=== PATIENT | male | born 1955 | race Caucasian/White ===

== ENCOUNTER 2016-11-28 17:51 | Inpatient (IN) | payer MEDICARE, MEDICAID ==
[2016-11-28] MEDS ORDERED: cefTRIAXone(*) 1 GM in NS 0.9% 50 ML* 50 ML IVPB ONE (17:59)
[2016-11-28] MEDS ORDERED: NS 0.9% 1000 ML* 2,000 ML IV ONE (17:59)
[2016-11-28 18:12] LABS: Hematocrit 28 % (42-52); Hemoglobin 8.5 g/dl (14.0-18.0); Mean Corpuscular HGB Conc 31 g/dl (31-36); Mean Corpuscular Hemoglobin 24 pg (27-31); Mean Corpuscular Volume 78 fL (80-94); Mean Platelet Volume 8 um3 (7.4-10.4); Red Cell Distribution Width 15 % (10.5-15); White Blood Count 10.8 10^3/ul (3.5-10.8)
[2016-11-28 18:27] LABS: BUN/Creatinine Ratio 14.5 (8-20); Calcium 8.8 mg/dL (8.6-10.3); EGFR African American 45.4 (>60); EGFR Non-African American 35.3 (>60); Potassium 4.1 mmol/L (3.5-5.0); Total Bilirubin 1.7 mg/dL (0.2-1.0)
[2016-11-28 18:30] LABS: Troponin I 0.04 ng/mL (<0.04)
--- NOTE | 2016-11-28 18:37 | RAD ---
INDICATION: Sepsis COMPARISON: Chest x-ray November 11, 2015 TECHNIQUE: Single AP portable view of the chest was obtained. FINDINGS: Image quality is compromised due to the relative inferiority of a portable chest x-ray. The heart and mediastinum exhibit normal size and contour. Similar the previous chest x-ray the pulmonary vasculature is prominent and indistinct. There are pleural-based densities at the lateral aspect of the left lung base and medial aspect of the right lung base. Overall aeration is improved when compared to the previous chest x-ray. Visualized bones are normal for the patient's age. IMPRESSION: Chest x-ray findings are most suggestive of mild pulmonary edema with left greater than right lung base hypoventilatory change. Overall the aeration of the lungs appears slightly improved when compared to the November 11, 2015 chest x-ray.
[2016-11-28 19:12] LABS: C Reactive Protein 167.28 mg/L (< 5.00)
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
--- NOTE | 2016-11-28 20:52 | ED ---
randa Perea Timothy, scribed for Dev George MD on 11/28/16 at 1811 . Sepsis HPI - HPI Summary HPI Summary: Efra Thapa is a 61 yo male presenting to [facility] with generalized weakness since this morning, as well as cough. He denies fever, trouble urinating, or abdominal pain and nausea. His MHx includes systolic CHF, HTN, COPD, pulmonary edema, DM, depression, anemia, and confirmed MRSA. - History of Current Complaint Time Seen by Provider: 11/28/16 17:55 Stated Complaint: GENERAL WEAKNESS Hx Obtained From: Patient Onset/Duration: Started Hours Ago, Still Present Timing: Constant Onset Severity: Moderate Current Severity: Moderate Pain Intensity: 0 Pain Scale Used: 0-10 Numeric Associated Signs & Symptoms: Cough - Additional Pertinent History Primary Care Physician: [id number] - Allergy/Home Medications Allergies/Adverse Reactions: Allergies Allergy/AdvReac Type Severity Reaction Status Date / Time Penicillins Allergy Intermediate Rash Verified 11/28/16 18:34 PMH/Surg Hx/FS Hx/Imm Hx Endocrine/Hematology History: Reports: Hx Diabetes, Hx Anemia - TAKING IRON Cardiovascular History: Reports: Hx Congestive Heart Failure - SYSTOLIC CHF, Hx Hypertension - TAKING MEDICATION Respiratory History: Reports: Hx Chronic Obstructive Pulmonary Disease (COPD), Hx Pulmonary Edema History: Denies: Hx Renal Disease Musculoskeletal History: Reports: Other Musculoskeletal History - osteomyalgia bilateral foot Sensory History: Denies: Hx Contacts or Glasses, Hx Hearing Aid Opthamlomology History: Denies: Hx Contacts or Glasses Psychiatric History: Reports: Hx Depression - Surgical History Hx Anesthesia Reactions: No - Immunization History Date of Tetanus Vaccine: Unk Date of Influenza Vaccine: None - Family History Known Family History: Positive: Cardiac Disease, Hypertension, Diabetes - Social History Alcohol Use: None Substance Use Type: Reports: None Hx Tobacco Use: No Smoking Status (MU): Never Smoked Tobacco Have You Smoked in the Last Year: No Review of Systems Constitutional: Negative Negative: Fever Eyes: Negative ENT: Negative Cardiovascular: Negative Positive: Cough Gastrointestinal: Negative Genitourinary: Negative Musculoskeletal: Negative Skin: Negative Positive: Weakness Psychological: Normal All Other Systems Reviewed And Are Negative: Yes Physical Exam Triage Information Reviewed: Yes Vital Signs On Initial Exam: Initial Vital Signs Temp 99.9 F 11/28/16 18:00 Pulse 106 11/28/16 18:00 Resp 20 11/28/16 18:00 BP 87/49 11/28/16 18:00 Pulse Ox 88 11/28/16 18:00 Vital Signs Reviewed: Yes Appearance: Positive: No Pain Distress, Ill-Appearing Skin: Positive: Warm, Dry, Pale Head/Face: Positive: Normal Head/Face Inspection Eyes: Positive: Normal ENT: Positive: Other - mucous membranes dry Neck: Positive: Supple, Nontender Respiratory/Lung Sounds: Positive: Clear to Auscultation, Breath Sounds Present Cardiovascular: Positive: RRR Abdomen Description: Positive: Nontender, Soft, Hernia @ - nontender ventral hernia Bowel Sounds: Positive: Present Musculoskeletal: Positive: Normal Neurological: Positive: Normal Psychiatric: Positive: Normal Diagnostics - Vital Signs Vital Signs Temp Pulse Resp BP Pulse Ox 11/28/16 19:20 100.1 F 93 26 155/62 96 11/28/16 19:18 96 155/62 96 11/28/16 19:00 95 94 11/28/16 18:44 101 18 85 11/28/16 18:42 153/79 11/28/16 18:40 90 11/28/16 18:00 99.9 F 106 20 87/49 88 - Laboratory Lab Results: Lab Results 11/28/16 11/28/16 11/28/16 Range/Units 17:55 17:55 17:55 WBC 10.8 (3.5-10.8) 10^3/ul RBC 3.60 L (4.0-5.4) 10^6/ul Hgb 8.5 L (14.0-18.0) g/dl Hct 28 L (42-52) % MCV 78 L (80-94) fL MCH 24 L (27-31) pg MCHC 31 (31-36) g/dl RDW 15 (10.5-15) % Plt Count 302 (150-450) 10^3/ul MPV 8 (7.4-10.4) um3 Neut % (Auto) 80.0 (38-83) % Lymph % (Auto) 14.6 L (25-47) % [place] % (Auto) 4.1 (1-9) % Eos % (Auto) 1.0 (0-6) % Baso % (Auto) 0.3 (0-2) % Absolute Neuts (auto) 8.6 H (1.5-7.7) 10^3/ul Absolute Lymphs (auto) 1.6 (1.0-4.8) 10^3/ul Absolute Monos (auto) 0.4 (0-0.8) 10^3/ul Absolute Eos (auto) 0.1 (0-0.6) 10^3/ul Absolute Basos (auto) 0 (0-0.2) 10^3/ul Absolute Nucleated RBC 0.01 10^3/ul Nucleated RBC % 0.1 INR (Anticoag Therapy) 1.05 (0.89-1.11) APTT 26.9 (26.0-36.3) seconds Sodium 133 (133-145) mmol/L Potassium 4.1 (3.5-5.0) mmol/L Chloride 93 L (101-111) mmol/L Carbon Dioxide 37 H (22-32) mmol/L Anion Gap 3 (2-11) mmol/L BUN 28 H (6-24) mg/dL Creatinine 1.93 H (0.67-1.17) mg/dL Est GFR ( Amer) 45.4 (>60) Est GFR (Non-Af Amer) 35.3 (>60) BUN/Creatinine Ratio 14.5 (8-20) Glucose 272 H (70-100) mg/dL Lactic Acid (0.5-2.0) mmol/L Calcium 8.8 (8.6-10.3) mg/dL Total Bilirubin 1.70 H (0.2-1.0) mg/dL AST 64 H (13-39) U/L ALT 18 (7-52) U/L Alkaline Phosphatase 72 (34-104) U/L Troponin I 0.04 H* (<0.04) ng/mL C-Reactive Protein 167.28 H (< 5.00) mg/L Total Protein 8.0 (6.4-8.9) g/dL Albumin 3.0 L (3.2-5.2) g/dL Globulin 5.0 H (2-4) g/dL Albumin/Globulin Ratio 0.6 L (1-3) 11/28/16 Range/Units 17:55 WBC (3.5-10.8) 10^3/ul RBC (4.0-5.4) 10^6/ul Hgb (14.0-18.0) g/dl Hct (42-52) % MCV (80-94) fL MCH (27-31) pg MCHC (31-36) g/dl RDW (10.5-15) % Plt Count (150-450) 10^3/ul MPV (7.4-10.4) um3 Neut % (Auto) (38-83) % Lymph % (Auto) (25-47) % [place] % (Auto) (1-9) % Eos % (Auto) (0-6) % Baso % (Auto) (0-2) % Absolute Neuts (auto) (1.5-7.7) 10^3/ul Absolute Lymphs (auto) (1.0-4.8) 10^3/ul Absolute Monos (auto) (0-0.8) 10^3/ul Absolute Eos (auto) (0-0.6) 10^3/ul Absolute Basos (auto) (0-0.2) 10^3/ul Absolute Nucleated RBC 10^3/ul Nucleated RBC % INR (Anticoag Therapy) (0.89-1.11) APTT (26.0-36.3) seconds Sodium (133-145) mmol/L Potassium (3.5-5.0) mmol/L Chloride (101-111) mmol/L Carbon Dioxide (22-32) mmol/L Anion Gap (2-11) mmol/L BUN (6-24) mg/dL Creatinine (0.67-1.17) mg/dL Est GFR ( Amer) (>60) Est GFR (Non-Af Amer) (>60) BUN/Creatinine Ratio (8-20) Glucose (70-100) mg/dL Lactic Acid 1.7 (0.5-2.0) mmol/L Calcium (8.6-10.3) mg/dL Total Bilirubin (0.2-1.0) mg/dL AST (13-39) U/L ALT (7-52) U/L Alkaline Phosphatase (34-104) U/L Troponin I (<0.04) ng/mL C-Reactive Protein (< 5.00) mg/L Total Protein (6.4-8.9) g/dL Albumin (3.2-5.2) g/dL Globulin (2-4) g/dL Albumin/Globulin Ratio (1-3) Result Diagrams: 11/28/16 17:55 11/28/16 17:55 Lab Statement: Any lab studies that have been ordered have been reviewed, and results considered in the medical decision making process. - Radiology CXR Xray Interpretation: No Acute Changes - IMPRESSION: Chest x-ray findings are most suggestive of mild pulmonary edema with left greater than right lung base hypoventilatory change. Overall the aeration of the lungs appears slightly improved when compared to the November 11, 2015 chest x-ray. Radiology Interpretation Completed By: Radiologist - EKG 1803 Cardiac Rate: NL - 86 BPM EKG Interpretation: NSR @ 86 BPM. Course/Dx - Course Assessment/Plan: Efra Thapa is a 61 yo male presenting to [facility] with weakness and cough, at risk for sepsis. After normal EKG, negative CXR, and review of his lab work, as well as discussion with Dr. Vaughn, he will be admitted to [facility]. I'm not sure of the wource of his sepsis but he appears to be quite ill and I am treating him aggressively. - Differential Dx/Clinical Impression Provider Diagnosis: Sepsis - Provider Notifications Discuss Care Of Patient With: 1951 - Dr. Vaughn (hospitalist) - discussed Pt condition, agrees to admit. Discharge - Discharge Plan Condition: Stable Disposition: ADMITTED TO [facility] Referrals: Ismael Yoo MD [Primary Care Provider] - The documentation as recorded by the randa pollack Timothy accurately reflects the service I personally performed and the decisions made by me, Dev George MD.
[2016-11-28] MEDS ORDERED: Albuterol 2.5 MG/3 ML NEB.SOL* (0.083%) INH PRN (21:42)
[2016-11-28] MEDS ORDERED: Ondansetron INJ* 2 MG/ML VIAL IV PRN (21:42)
[2016-11-28] MEDS ORDERED: Acetaminophen TAB* 325 MG PO PRN (21:42)
[2016-11-28] MEDS ORDERED: CMCS: Melatonin (NF) 3 MG TAB PO PRN (21:42)
[2016-11-28] MEDS ORDERED: traMADol TAB* 50 MG PO PRN (21:42)
[2016-11-28 21:57] LABS: Immature Retic Fraction 0.57
[2016-11-28 21:58] LABS: Corrected Retic Count 1.4 % (0.5-1.5)
[2016-11-28] MEDS ORDERED: methylPREDNISolone SOD SUCC* 125 MG 2 ML VIAL IV ONE (22:00)
[2016-11-28 22:26] LABS: Ferritin 166.4 ng/mL (24-336)
[2016-11-28 22:29] LABS: Folate 8.51 ng/mL (>3.99)
[2016-11-28] MEDS: Azithromycin IV(*) 500 MG in NS 0.9% 250 ML* 250 ML IVPB SCH (23:34)
[2016-11-28] MEDS: NS 0.9% 1000 ML* 1,000 ML IV SCH (23:35)
[2016-11-29] MEDS: Albuterol 2.5 MG/3 ML NEB.SOL* (0.083%) INH SCH ×2 (01:24→08:07)
[2016-11-29 05:45] LABS: Hematocrit 27 % (42-52); Hemoglobin 8.3 g/dl (14.0-18.0); Mean Corpuscular HGB Conc 31 g/dl (31-36); Mean Corpuscular Hemoglobin 24 pg (27-31); Mean Corpuscular Volume 79 fL (80-94); Mean Platelet Volume 8 um3 (7.4-10.4); Red Blood Count 3.43 10^6/ul (4.0-5.4); Red Cell Distribution Width 15 % (10.5-15); White Blood Count 10.5 10^3/ul (3.5-10.8)
[2016-11-29] MEDS ORDERED: methylPREDNISolone SOD SUCC* 40 MG/ML VIAL IV SCH (06:00)
[2016-11-29 06:01] LABS: BUN/Creatinine Ratio 15.7 (8-20); Calcium 8.2 mg/dL (8.6-10.3); EGFR African American 44.1 (>60); EGFR Non-African American 34.3 (>60); Potassium 5.2 mmol/L (3.5-5.0)
[2016-11-29] MEDS: Heparin VIAL(*) 5000 UNITS/ML VIAL (FIVE THOUSAND) SUBCUT SCH ×3 (06:02→20:49)
[2016-11-29] MEDS: Omeprazole CAP* 20 MG PO SCH (06:02)
[2016-11-29 07:04] LABS: Troponin I 0.03 ng/mL (<0.04)
[2016-11-29] MEDS ORDERED: Insulin LISPRO* 1 UNITS UNIT SUBCUT SCH (07:30)
[2016-11-29] MEDS: NS 0.9% 1000 ML* 1,000 ML IV SCH (08:00)
[2016-11-29] MEDS: Mometasone/Formoter 200/5 MDI INH SCH ×2 (08:07→20:58)
[2016-11-29] MEDS: Tiotropium CAP.INH* CAP.INH/18 MCG INH SCH (08:07)
[2016-11-29] MEDS ORDERED: Spiriva Inhaler DEVICE* 1 EACH DEVICE INH ONE (09:00)
[2016-11-29] MEDS: Insulin LISPRO* 1 UNITS UNIT SUBCUT SCH ×6 (09:58→20:47)
[2016-11-29] MEDS: guaiFENesin ER TAB 600 MG PO SCH ×2 (09:59→20:55)
--- NOTE | 2016-11-29 11:23 | PN ---
Subjective Date of Service: 11/29/16 Interval History: Patient seen this morning. Says he feels better today, increase in energy. Mild , non-productive cough. Family History: Unchanged from Admission Social History: Unchanged from Admission Past Medical History: Unchanged from Admission Objective Active Medications: Acetaminophen (Tylenol Tab*) 650 mg PO Q6H PRN Albuterol (Ventolin 2.5 Mg/3 Ml Neb.Sarah*) 2.5 mg INH Q2H PRN Guaifenesin (Mucinex*) 1,200 mg PO BID MAVIS Heparin Sodium (Porcine) (Heparin Vial(*)) 5,000 units SUBCUT Q8HR MAVIS Sodium Chloride (Ns 0.9% 1000 Ml*) 1,000 mls @ 125 mls/hr IV PER RATE MAVIS Ceftriaxone Sodium 1,000 mg/ (Sodium Chloride) 50 mls @ 200 mls/hr IVPB Q24H MAVIS Azithromycin 500 mg/ Sodium (Chloride) 250 mls @ 250 mls/hr IVPB Q24H MAVIS Insulin Glargine (Lantus(*)) 30 units SUBCUT 2100 MAVIS Insulin Human Lispro (Humalog*) 0 units SUBCUT AC MAVIS Insulin Human Lispro (Humalog*) 0 units SUBCUT ACHS MAVIS Melatonin (Melatonin (Nf)) 3 mg PO BEDTIME PRN; Protocol Methylprednisolone Sodium Succinate (Solu-Medrol*) 40 mg IV Q8H MAVIS Mometasone Furoate/Formoterol Fumar (Dulera 200/5 Mdi*) 2 puff INH BID MAVIS Omeprazole (Prilosec Cap*) 20 mg PO DAILY@0600 MAVIS Ondansetron HCl (Zofran Inj*) 4 mg IV Q6H PRN Tiotropium [place] (Spiriva Cap.Inh*) 1 cap INH DAILY MAVIS Tramadol HCl (Ultram*) 50 mg PO Q6H PRN Vital Signs 11/28/16 11/29/16 11/29/16 23:30 00:27 01:23 Temperature 98.1 F 98.7 F Pulse Rate 99 81 78 Respiratory 20 20 14 Rate Blood Pressure 148/70 125/56 (mmHg) O2 Sat by Pulse 90 98 97 Oximetry 11/29/16 11/29/16 11/29/16 03:38 07:26 08:08 Temperature 98.7 F 98.1 F Pulse Rate 84 89 75 Respiratory 20 20 16 Rate Blood Pressure 158/75 162/82 (mmHg) O2 Sat by Pulse 97 98 98 Oximetry Oxygen Devices in Use Now: Nasal Cannula - 3.5L Appearance: Middle-aged, obese, M, laying in bed in NAD Eyes: No Scleral Icterus Ears/Nose/Mouth/Throat: Mucous Membranes Moist Neck: NL Appearance and Movements; NL JVP Respiratory: Symmetrical Chest Expansion and Respiratory Effort, Clear to Auscultation Cardiovascular: NL Sounds; No Murmurs; No JVD, RRR Abdominal: NL Sounds; No Tenderness; No Distention Lymphatic: No Cervical Adenopathy Extremities: No Edema Skin: - - Chronic LE skin changes Neurological: Alert and Oriented x 3 Result Diagrams: 11/29/16 04:57 11/29/16 04:57 Microbiology and Other Data: Microbiology 11/29/16 03:10 Gram Stain - Final Sputum 11/28/16 23:25 Nasal Screen MRSA (PCR)(CÉSAR) - Final Nasal Mrsa Negative 11/28/16 22:20 Influenza Types A,B Antigen (CÉSAR) - Final Nasopharyngeal Specimen received for Influenza A/B Molecular testing Assess/Plan/Problems-Billing Assessment: COPD exacerbation in a 61 yo M with hx of HTN, COPD on 2L, DM, LUANA - Patient Problems (1) COPD exacerbation Current Visit: Yes Comment: Switch to PO prednisone. Continue nebs, dulera, spiriva. Decrease O2 as able. Check procalcitonin, not convinced there is bacterial infection. (2) Elevated troponin Current Visit: Yes Comment: Troponin trending down, likley mild demand (3) Diabetes Current Visit: Yes Comment: BGs uncontrolled due to steroids. Change to PO prednisone. Increase HISS. Continue Lantus. (4) ELIZA (acute kidney injury) Current Visit: Yes Comment: Continue IVF for now. BMP daily. Hold nephrotoxic meds (5) HTN (hypertension) Current Visit: Yes Comment: Holding home Lisinopril. Restart metoprolol 50 bid (6) Anemia Current Visit: Yes Comment: Iron studies c/w ACD (7) DVT prophylaxis Current Visit: Yes Comment: HSQ
[2016-11-29] MEDS: Metoprolol Tartrate TAB* 50 mg PO SCH ×2 (11:53→20:55)
[2016-11-29] MEDS ORDERED: cefTRIAXone VIAL(*) 1,000 MG in NS 0.9% 50 ML* 50 ML IVPB SCH (20:00)
[2016-11-29] MEDS ORDERED: Insulin GLARGINE(*) 1 UNITS UNIT SUBCUT SCH (21:00)
[2016-11-29] MEDS: Azithromycin IV(*) 500 MG in NS 0.9% 250 ML* 250 ML IVPB SCH (23:16)
[2016-11-30] MEDS: Omeprazole CAP* 20 MG PO SCH (06:06)
[2016-11-30] MEDS: Heparin VIAL(*) 5000 UNITS/ML VIAL (FIVE THOUSAND) SUBCUT SCH ×2 (06:06→13:04)
[2016-11-30 06:52] LABS: BUN/Creatinine Ratio 22.4 (8-20); EGFR African American 45.7 (>60); EGFR Non-African American 35.5 (>60); Potassium 5.7 mmol/L (3.5-5.0)
[2016-11-30] MEDS ORDERED: predniSONE TAB* 20 MG PO SCH (08:30)
[2016-11-30] MEDS ORDERED: Sodium Polystyrene ORAL.SOL* 15 GM/60 ML BTL PO ONE (08:33)
[2016-11-30] MEDS: Insulin LISPRO* 1 UNITS UNIT SUBCUT SCH ×4 (09:35→13:05)
[2016-11-30] MEDS: guaiFENesin ER TAB 600 MG PO SCH (09:37)
[2016-11-30] MEDS: Metoprolol Tartrate TAB* 50 mg PO SCH (09:40)
[2016-11-30] MEDS: Mometasone/Formoter 200/5 MDI INH SCH (10:11)
[2016-11-30] MEDS: Tiotropium CAP.INH* CAP.INH/18 MCG INH SCH (10:11)
--- NOTE | 2016-11-30 15:11 | RAD ---
Indication: Acute kidney insufficiency. Comparison: None. Technique: Ultrasound kidneys and urinary bladder. Report: 14.1 x 6.8 x 5.4 cm RIGHT kidney. 13.4 x 5.4 x 5.3 cm LEFT kidney. Normal range renal cortical echogenicity. 1.8 x 1.5 x 1.5 cm and 2.1 x 1.9 x 1.4 cm simple cortical cyst at the lower pole of the LEFT kidney. No suspicious focal renal lesions, conspicuous stones, or hydronephrosis. 626 mL estimated prevoid urinary bladder volume based on 15.6 x 7.1 x 10.9 cm measurements. 2.1 mm bladder wall. No focal bladder lesions evident. Bilateral ureteral jets documented. Significant post void residual volume in the urinary bladder estimated at 267 mL. Only limited visualization of the prostate which measures up to 4.5 x 1.7 x 4.6 cm for an estimated volume of 19 mL. IMPRESSION: 1. Negative for obstructive uropathy. 2. Negative for gross sonographic stigmata of medical renal disease. 3. Distended urinary bladder with significant post void residual volume estimated at 267 mL.
[2016-11-30 15:54] LABS: BUN/Creatinine Ratio 23.8 (8-20); EGFR African American 46.6 (>60); EGFR Non-African American 36.2 (>60); Potassium 4.7 mmol/L (3.5-5.0)
--- NOTE | 2016-11-30 15:58 | DCNOTE ---
Patient seen this morning. Says breathing is at baseline. No complaints. On exam, RRR, s1 and s2 present, no m/g/r, abd obese, soft, NTND, lungs CTA B/L Will discharge patient home to complete steroid course and continue inhalers. No need for ABx. Renal function impaired but stable, renal US unremarkable for any underlying etiology aside from some increased PVR. Discharge home on low K diet, f/u with PCP.
[2016-11-30 16:13] VITALS: BP 131/56
--- NOTE | 2016-12-01 06:46 | DS ---
DISCHARGE SUMMARY: DATE OF ADMISSION: 11/28/16 DATE OF DISCHARGE: 11/30/16 PRIMARY CARE PHYSICIAN: Dr. Yoo. PRINCIPAL DISCHARGE DIAGNOSES: 1. Chronic obstructive pulmonary disease exacerbation. 2. Acute kidney injury on chronic kidney disease. SECONDARY DIAGNOSES: 1. Obstructive sleep apnea, on CPAP. 2. Type 2 diabetes. 3. Hypertension. 4. Hyperkalemia. DISCHARGE MEDICATION REGIMEN: 1. Albuterol 1 puff inhaled every 4 hours as needed for shortness of breath or wheezing. 2. Symbicort 1 puff inhaled 2 times daily. 3. Spiriva 1 capsule inhaled daily. 4. Prednisone 40 mg by mouth daily. 5. Aspirin 81 mg by mouth daily. 6. Lasix 40 mg by mouth daily. 7. Levemir 30 units subcutaneous at bedtime. 8. Lisinopril 10 mg by mouth nightly. 9. Metoprolol tartrate 50 mg by mouth 2 times daily. 10. Glipizide 10 mg by mouth daily. 11. Flomax 0.4 mg by mouth at bedtime. STUDIES DONE DURING HOSPITALIZATION: 1. Chest x-ray, impression: Chest x-ray findings more suggestive of pulmonary edema of left greater than right, lung base hypoventilatory change. Overall, the aeration of the lungs appears slightly improved when compared to 11/11/15 chest x- ray. 2. Renal ultrasound and bladder, impression: Negative for obstructive uropathy. Negative for gross sonographic stigmata of medical renal disease. Distended urinary bladder with postvoid residual of 267 mL. HISTORY OF PRESENT ILLNESS AND HOSPITAL SUMMARY: Please see the full history and physical by Dr. Unruly Vaughn for full details. Briefly, Ms. Thapa is a 61- year-old morbidly obese man with a medical history as above who presented to the hospital with some shortness of breath and hypoxia. He states that when he was at home, he noticed on his O2 sat, he would be dropping into the 70s and 80s. He had poor aeration on initial exam and was treated for COPD exacerbation. He was initially given IV steroids, nebulizers, and IV antibiotics; however, antibiotics were stopped as there was no clear evidence of infection. The patient's renal function was noted to be slightly higher than baseline. He is usually around 1.3 or 1.4 and he was 1.9 on admission. This was stable throughout the hospitalization. The patient was making good urine. As noted above, the renal ultrasound showed some urinary retention after he voided. He will be started on Flomax for possible BPH. He should follow up with his PCP further regarding this. His breathing improved. He was weaned back to his home oxygen level. He will be discharged home on a short course of steroids and follow up with his PCP as an outpatient. TIME SPENT: Total time spent on this discharge 35 minutes. This is the summary of the hospitalization. Please see the medical record for further details. CC: Dr. Yoo* [id number]/CPS #: [id number]
== END 2016-11-30 17:50 | disposition home or self-care (01) | DRG 191 ==
LOC: ED 17:51 → MEDTELE 22:09 → OBSVTOIN 11-29 11:26 → MED 11-29 14:23
PROVIDERS: ADMIT Hospitalist; ATTEND Hospitalist
DX: J44.1 Chronic obstructive pulmonary disease with (acute) exacerbation (principal); N17.9 Acute kidney failure, unspecified; R65.10 Systemic inflammatory response syndrome (SIRS) of non-infectious origin without acute organ dysfunction; I13.0 Hypertensive heart and chronic kidney disease with heart failure and stage 1 through stage 4 chronic kidney disease, or unspecified chronic kidney disease; I50.22 Chronic systolic (congestive) heart failure; E11.22 Type 2 diabetes mellitus with diabetic chronic kidney disease; Z68.41 Body mass index [BMI] 40.0-44.9, adult; E87.5 Hyperkalemia; F32.9 Major depressive disorder, single episode, unspecified; R09.02 Hypoxemia; G47.33 Obstructive sleep apnea (adult) (pediatric); D64.9 Anemia, unspecified; R79.89 Other specified abnormal findings of blood chemistry; E11.65 Type 2 diabetes mellitus with hyperglycemia; T38.0X5A Adverse effect of glucocorticoids and synthetic analogues, initial encounter; N18.9 Chronic kidney disease, unspecified; Z79.52 Long term (current) use of systemic steroids; Z79.82 Long term (current) use of aspirin; Z79.84 Long term (current) use of oral hypoglycemic drugs; Z86.14 Personal history of Methicillin resistant Staphylococcus aureus infection; Z82.49 Family history of ischemic heart disease and other diseases of the circulatory system; Z83.3 Family history of diabetes mellitus; Z88.0 Allergy status to penicillin; Z99.81 Dependence on supplemental oxygen; E66.01 Morbid (severe) obesity due to excess calories; N40.1 Benign prostatic hyperplasia with lower urinary tract symptoms; R33.8 Other retention of urine
CPT/HCPCS: 36415; 71010; 76770; 80048; 80053; 82272; 82607; 82728; 82746; 82947; 83540; 83550; 83605; 83615; 83630; 83880; 84134; 84145; 84484; 85025; 85045; 85610; 85730; 86140; 87040; 87045; 87046; 87205; 87493; 87502; 87641; 87899; 93005; 94760; 99283; A9270-GY; J0456; J0696; J1644; J2920; J2930; J7512

== ENCOUNTER → 2017-01-31 19:36 | Emergency (ER) | payer MEDICARE, MEDICAID ==
[~2017-01-31 19:36] MED LIST: Insulin REGULAR(*) 1 UNITS UNIT IV PUSH ONE; Iodixanol* (CONTRAST) 320 MG/ML 100 ML SDV IV ONE; Morphine INJ* 4 MG/ML 1 ML SYRINGE IV ONE; NS 0.9% 1000 ML* 1,000 ML IV ONE; NS 0.9% 1000 ML* 1,000 ML IV SCH; Ondansetron INJ* 2 MG/ML VIAL IV ONE
[2017-01-31 20:44] LABS: Hematocrit 36 % (42-52); Mean Corpuscular HGB Conc 30 g/dl (31-36); Mean Corpuscular Hemoglobin 23 pg (27-31); Mean Corpuscular Volume 74 fL (80-94); Mean Platelet Volume 8 um3 (7.4-10.4); Red Blood Count 4.89 10^6/ul (4.0-5.4); Red Cell Distribution Width 17 % (10.5-15); White Blood Count 10.7 10^3/ul (3.5-10.8)
--- NOTE | 2017-01-31 20:47 | RAD ---
INDICATION: Abdominal pain. COMPARISON: Comparison is made with a prior chest x-ray study from November 28, 2016. TECHNIQUE: A portable view of the chest was obtained. FINDINGS: Cardiac and mediastinal contours appear to be within normal limits. The lungs are underinflated. There are linear densities at both lung bases most consistent with subsegmental atelectasis. No pleural effusion is seen. IMPRESSION: EXPIRATORY EXAM, NO EVIDENCE FOR ACUTE FINDING.
[2017-01-31 20:49] LABS: Add Diff/Slide Review? Slide Review Added; Comments Flag Yes
[2017-01-31 21:05] LABS: Albumin 3.8 g/dL (3.2-5.2); BUN/Creatinine Ratio 14.4 (8-20); Calcium 9.1 mg/dL (8.6-10.3); EGFR African American 53.7 (>60); EGFR Non-African American 41.8 (>60); Globulin 4.4 g/dL (2-4); Potassium 4.3 mmol/L (3.5-5.0); Total Bilirubin 1.2 mg/dL (0.2-1.0); Total Protein 8.2 g/dL (6.4-8.9)
[2017-01-31 21:06] LABS: Troponin I 0.01 ng/mL (<0.04)
--- NOTE | 2017-01-31 22:15 | RAD ---
INDICATION: Abdominal pain. COMPARISON: Comparison is made with a prior renal and bladder ultrasound from November 30, 2016. TECHNIQUE: A CT scan of the abdomen and pelvis was performed with intravenous and oral contrast following intravenous injection of 129 ml of Visipaque 320 nonionic contrast. Contiguous axial sections were obtained from the lung bases through the symphysis pubis. Images were reconstructed in the coronal and sagittal planes. FINDINGS: There is mild dependent bilateral lower lobe subsegmental atelectasis. No pleural effusion is present. The liver is mildly enlarged without significant focal abnormality. The gallbladder is distended. No calcified gallstones are seen. There is mild intra and extra hepatic ductal distention. The common bile duct measures 1.3 cm in diameter. The pancreas is within normal limits. No pancreatic ductal distention or calcifications are present. The kidneys and adrenal glands are normal in size. No hydronephrosis is seen. There are several small left renal cysts measuring up to 2.3 cm in size. The aorta is normal in caliber and demonstrates homogeneous contrast opacification. There is a retroaortic left renal vein. No significant enlarged retroperitoneal lymph nodes are seen. There are mildly prominent bilateral inguinal lymph nodes measuring up to 1.2 cm in transverse dimension. The stomach, small and large bowel appear nondistended. The appendix is within normal limits. There is no evidence for diverticulitis or colitis. There are periumbilical and left inguinal hernias containing fat. No free intraperitoneal air or fluid is seen. There is a chronic relatively severe compression fracture of the L3 vertebral body. This is seen on a prior MRI of the lumbar spine study from April 18, 2005 and appears unchanged. No other focal osseous abnormalities are seen. IMPRESSION: 1. INTRA AND EXTRAHEPATIC DUCTAL DISTENTION. RECOMMEND A RIGHT UPPER QUADRANT ULTRASOUND FOR FURTHER EVALUATION. 2. CHRONIC COMPRESSION FRACTURE OF THE L3 VERTEBRAL BODY, UNCHANGED. 3. PERIUMBILICAL AND LEFT INGUINAL HERNIAS CONTAINING FAT.
--- NOTE | 2017-02-01 00:32 | ED ---
Jeremi Perea Alok, scribed for Chas Toney on 01/31/17 at 2025 . Abdominal Pain/Male - HPI Summary HPI Summary: 61 y/o male presents to the ED BIBA for abd pain for the last few hours. Pt states that the abd pain is localized to the RLQ, radiating to the back, and is constant, registering at a 4 out of 10 in severity. Pt also notes groin hernia swelling same as baseline. Pt denies N/V/D, CP, SOB, constipation or fever. Pt denies h/o abd surgery. Pt denies h/o kidney stones or OH. PMHx includes COPD for which he uses home O2 and DM for which he recently ran out of his glipizide , with sugar of 366 taken by EMS in route to ED. Pt is allergic to Penicillin. Pt last ate at lunch time. - History of Current Complaint Chief Complaint: EDAbdPain Stated Complaint: ABD PAIN Time Seen by Provider: 01/31/17 19:51 Hx Obtained From: Patient Onset/Duration: Lasting Hours, Still Present Timing: Constant Severity Initially: Moderate Severity Currently: Moderate Pain Intensity: 5 Pain Scale Used: 0-10 Numeric Location: Discrete At: RLQ Radiates: Yes Radiates to: Back Associated Signs And Symptoms: Positive: Back Pain. Negative: Fever, Chest Pain , Constipation, Nausea, Vomiting, Diarrhea, Other - SOB - Allergies/Home Medications Allergies/Adverse Reactions: Allergies Allergy/AdvReac Type Severity Reaction Status Date / Time Penicillins Allergy Intermediate Rash Verified 11/28/16 18:34 PMH/Surg Hx/FS Hx/Imm Hx Endocrine/Hematology History: Reports: Hx Diabetes, Hx Anemia - TAKING IRON Cardiovascular History: Reports: Hx Congestive Heart Failure - SYSTOLIC CHF, Hx Hypertension - TAKING MEDICATION Respiratory History: Reports: Hx Chronic Obstructive Pulmonary Disease (COPD), Hx Pulmonary Edema History: Denies: Hx Renal Disease Musculoskeletal History: Reports: Other Musculoskeletal History - osteomyalgia bilateral foot Sensory History: Denies: Hx Contacts or Glasses, Hx Hearing Aid Opthamlomology History: Denies: Hx Contacts or Glasses Psychiatric History: Reports: Hx Depression - Surgical History Hx Anesthesia Reactions: No - Immunization History Date of Tetanus Vaccine: Unk Date of Influenza Vaccine: None Infectious Disease History: No Infectious Disease History: Denies: Traveled Outside the [place] in Last 30 Days - Family History Known Family History: Positive: Cardiac Disease, Hypertension, Diabetes - Social History Alcohol Use: None Substance Use Type: Reports: None Hx Tobacco Use: No Smoking Status (MU): Never Smoked Tobacco Have You Smoked in the Last Year: No Review of Systems Negative: Fever Negative: Chest Pain Negative: Shortness Of Breath Positive: Abdominal Pain - RLQ. Negative: Vomiting, Diarrhea, Nausea, Other - constipation Positive: Edema - groin hernia swelling same as baseline, Other - back pain All Other Systems Reviewed And Are Negative: Yes Physical Exam Triage Information Reviewed: Yes Vital Signs On Initial Exam: Initial Vitals Temp Pulse Resp BP Pulse Ox 98.3 F 61 18 147/65 97 01/31/17 19:36 01/31/17 19:36 01/31/17 19:36 01/31/17 19:36 01/31/17 19:36 Vital Signs Reviewed: Yes Appearance: Positive: Well-Appearing, No Pain Distress Skin: Positive: Warm, Skin Color Reflects Adequate Perfusion, Dry Head/Face: Positive: Normal Head/Face Inspection Eyes: Positive: EOMI, RYAN ENT: Positive: Other - Dry oral mucosa Neck: Positive: Supple, Nontender Respiratory/Lung Sounds: Positive: Clear to Auscultation, Breath Sounds Present Cardiovascular: Positive: RRR, Pulses are Symmetrical in both Upper and Lower Extremities Abdomen Description: Positive: Soft, Other: - RLQ tenderness Bowel Sounds: Positive: Present Musculoskeletal: Positive: Normal, Strength/ROM Intact Neurological: Positive: Normal, Sensory/Motor Intact, Alert, Oriented to Person Place, Time - Doni Coma Scale Coma Scale Total: 15 Diagnostics - Vital Signs Vital Signs Temp Pulse Resp BP Pulse Ox 01/31/17 20:00 64 142/59 97 01/31/17 19:48 66 96 01/31/17 19:47 146/66 01/31/17 19:36 98.3 F 61 18 147/65 97 - Laboratory Result Diagrams: 01/31/17 20:32 01/31/17 20:32 Lab Statement: Any lab studies that have been ordered have been reviewed, and results considered in the medical decision making process. - Radiology CXR Xray Interpretation: Positive (See Comments) - IMPRESSION: EXPIRATORY EXAM, NO EVIDENCE FOR ACUTE FINDING. Radiology Interpretation Completed By: Radiologist - CT abd/pel CT CT Interpretation: Positive (See Comments) - IMPRESSION: 1. INTRA AND EXTRAHEPATIC DUCTAL DISTENTION. RECOMMEND A RIGHT UPPER QUADRANT ULTRASOUND FOR FURTHER EVALUATION. 2. CHRONIC COMPRESSION FRACTURE OF THE L3 VERTEBRAL BODY, UNCHANGED. 3. PERIUMBILICAL AND LEFT INGUINAL HERNIAS CONTAINING FAT. CT Interpretation Completed By: Radiologist - EKG 2103 Cardiac Rate: NL - 63 bpm EKG Rhythm: Sinus Rhythm ST Segment: Non-Specific - ST changes EKG Interpretation: Q-waves in inferior leads - Additional Comments Diagnostic Additional Comments: Abd US - Minimal hepatomegaly. Coarse liver echotexture, possibly steatosis. Exam limited by bowel gas and body habitus. Cholelithiasis without acute cholecystitis. Top normal gallbladder wall thickness, 3mm. Unremarkable right kidney and visualized aorta. Bowel gas obscures pancreas. No biliary dilatation. Abdominal Pain Fem Course/Dx - Course Course Of Treatment: Pt came with abd pain. Did Lab, CT, XRAY, and US. No cholelithiasis. Pt states he feels fine and will be discharged home with protoxin and recommendation to FU with PCP in 3 days. - Diagnoses Provider Diagnoses: Abdominal pain Discharge - Discharge Plan Condition: Stable Disposition: HOME Prescriptions: Pantoprazole TAB (NF) [Protonix TAB (NF)] 40 mg PO DAILY #30 tab Patient Education Materials: Abdominal Pain (ED) Referrals: Ismael Yoo MD [Primary Care Provider] - 3 Days Additional Instructions: Please follow up with your primary care provider in the next three days. The documentation as recorded by the Jeremi pollack Alok accurately reflects the service I personally performed and the decisions made by me, Chas Toney.
[2017-02-01 00:55] VITALS: BP 151/83
--- NOTE | 2017-02-01 07:55 | RAD ---
INDICATION: Right upper quadrant pain. COMPARISON: Comparison is made with a prior CT of the abdomen and pelvis of the same date. TECHNIQUE: Multiple real-time images of the right upper quadrant were obtained. FINDINGS: There are multiple small gallstones. No gallbladder wall thickening or pericholecystic fluid is seen. No sonographic Cline sign was present. There is extrahepatic ductal distention. The common bile duct measured 1.4 cm in diameter. The liver is normal in size without significant focal abnormality. The pancreas is obscured by overlying bowel gas. The right kidney is normal in size without evidence for hydronephrosis. The results of this exam were called to Dr. Lazo. IMPRESSION: 1. CHOLELITHIASIS, NO EVIDENCE FOR ACUTE CHOLECYSTITIS. 2. EXTRAHEPATIC DUCTAL DISTENTION. CONSIDER AN MRCP STUDY TO ASSESS FOR CHOLEDOCHOLITHIASIS.
--- NOTE | 2017-02-01 09:30 | ED ---
Progress - Progress Note Progress Note: Received radiology discrepancy from staff radiologist this morning regarding dilated CBD 1.4 cm. I discussed this with the PCP, Dr. Yoo, he agrees to call the patient this morning and order followup MRCP as needed. Course/Dx - Course Course Of Treatment: Pt came with abd pain. Did Lab, CT, XRAY, and US. No cholelithiasis. Pt states he feels fine and will be discharged home with protoxin and recommendation to FU with PCP in 3 days. - Diagnoses Provider Diagnoses: Abdominal pain
== END | disposition home or self-care (01) ==
LOC: ED 19:36
DX: R10.9 Unspecified abdominal pain (principal); K80.20 Calculus of gallbladder without cholecystitis without obstruction; E11.9 Type 2 diabetes mellitus without complications; D64.9 Anemia, unspecified; I11.0 Hypertensive heart disease with heart failure; I50.20 Unspecified systolic (congestive) heart failure; J44.9 Chronic obstructive pulmonary disease, unspecified; R94.31 Abnormal electrocardiogram [ECG] [EKG]; Z79.899 Other long term (current) drug therapy
CPT/HCPCS: 36415; 71010; 74177; 76705; 80053; 83605; 83690; 83880; 84484; 85025; 85610; 85730; 93005; 96361; 96374; 96375; 99283; J2270; J2405; Q9967

== ENCOUNTER 2017-03-14 09:59 | Day surgery (SDC) | payer MEDICARE, MEDICAID ==
[~2017-03-14 09:59] MED LIST changes: +Acetaminophen TAB* 325 MG PO PRN; +Buffered Lidocaine 0.9% SYRIN* 5 ML/SYR SYRINGE INTRADERM ONE; +Cyclopentolate 1% OPTH.SOL* 2 ML BTL ONE; +Flurbiprofen 0.03% OPTH.SOL* 2.5 ML BTL ONE; -Insulin REGULAR(*) 1 UNITS UNIT IV PUSH ONE; -Iodixanol* (CONTRAST) 320 MG/ML 100 ML SDV IV ONE; +Lidocaine 2% EPI 1:200000 MPF* 20 ML VIAL ONE; +Lidocaine 2% MPF* 2 ML VIAL ONE; -Morphine INJ* 4 MG/ML 1 ML SYRINGE IV ONE; -NS 0.9% 1000 ML* 1,000 ML IV ONE; -NS 0.9% 1000 ML* 1,000 ML IV SCH; +Neomycin/Polymy/Dex OPTH.SUSP* MAXITROL 0.1% 5 ML ONE; -Ondansetron INJ* 2 MG/ML VIAL IV ONE; +Phenylephrine 2.5% OPTH.SOL* 2 ML BTL ONE; +Povidone Iodine 5% OPTH* 30 ML BTL ONE; +Proparacaine 0.5% OPHTH.SOL* 15 ML BTL ONE; +acetaZOLAMIDE TAB* 250 MG ONE
[2017-03-14] MEDS ORDERED: Metoprolol Tartrate TAB* 25 MG ONE (11:26)
[2017-03-14] MEDS ORDERED: Insulin REGULAR(*) 1 UNITS UNIT ONE (11:45)
[2017-03-14] MEDS ORDERED: Trypan Blue 0.06% SOL* 0.5 ML BTL ONE (12:26)
[2017-03-14] MEDS ORDERED: Midazolam* 1 MG/ML 2 ML VIAL (2 MG) ONE (12:32)
[2017-03-14] MEDS ORDERED: fentaNYL* 50 MCG/ML 2 ML VIAL (100 MCG VIAL) ONE (12:38)
[2017-03-14 14:18] VITALS: BP 98/75
--- NOTE | 2017-03-14 14:58 | OP ---
DATE OF OPERATION: 03/14/2017. DATE OF : 1955. SURGEON: Chuy Boateng M.D. PREOPERATIVE DIAGNOSIS: Cataract right eye. POSTOPERATIVE DIAGNOSIS: Cataract right eye. OPERATIVE PROCEDURE: Phacoemulsification right eye with IOL. PROCEDURE: The patient was brought to the operating room after being given 1/2 % Alcaine with epinephrine drops in the preoperative area. The eye was prepped and draped in the usual sterile fashion. Sterile drape and eyelid speculum were placed. Again, topical 1/2% Alcaine with epinephrine was given. A paracentesis incision was made at the 9 o'clock position with the No.75 blade. Clear cornea incision 2.2 x 2.2-mm was created at the 12 o'clock position starting at the anterior limbus using the 2.2-mm keratome. The anterior chamber was irrigated with 0.4 mL of 1% non-preservative intracameral lidocaine and filled with DisCoVisc. A capsulorrhexis was completed using the cystotome and the Utrata forceps. Hydrodissection was performed with balanced salt solution. The lens nucleus was removed with the Phacoemulsification handpiece without incident. Cortex was removed with the irrigation-aspiration handpiece. The capsular bag was re-inflated using DisCoVisc and an [id number] 19.5 implant was inserted with the shooter. Prior to capsulorrhexis, VisionBlue was used to stain the anterior capsule. The irrigation- aspiration handpiece was used to remove all residual DisCoVisc. The eye was refilled with balanced salt solution and the wound checked and found to be watertight. Topical Maxitrol drops were given. INDICATION FOR COMPLEX CATARACT SURGERY: White cataract requiring capsular staining. [id number]/[facility] #: [id number]/[facility] #: [id number] [facility]
== END 2017-03-14 14:36 | disposition home or self-care (01) ==
LOC: OREAST 09:59
PROVIDERS: ATTEND Specialist
DX: H25.811 Combined forms of age-related cataract, right eye (principal); H35.371 Puckering of macula, right eye; E11.3293 Type 2 diabetes mellitus with mild nonproliferative diabetic retinopathy without macular edema, bilateral; J44.9 Chronic obstructive pulmonary disease, unspecified; I10 Essential (primary) hypertension
CPT/HCPCS: A9270-GY; J2250; J3010; V2632

== ENCOUNTER 2017-03-21 09:44 | Day surgery (SDC) | payer MEDICARE, MEDICAID ==
[~2017-03-21 09:44] MED LIST changes: -Cyclopentolate 1% OPTH.SOL* 2 ML BTL ONE; -Flurbiprofen 0.03% OPTH.SOL* 2.5 ML BTL ONE; -Lidocaine 2% EPI 1:200000 MPF* 20 ML VIAL ONE; -Lidocaine 2% MPF* 2 ML VIAL ONE; -Neomycin/Polymy/Dex OPTH.SUSP* MAXITROL 0.1% 5 ML ONE; -Phenylephrine 2.5% OPTH.SOL* 2 ML BTL ONE; -Povidone Iodine 5% OPTH* 30 ML BTL ONE; -Proparacaine 0.5% OPHTH.SOL* 15 ML BTL ONE; -acetaZOLAMIDE TAB* 250 MG ONE
[2017-03-21] MEDS ORDERED: Trypan Blue 0.06% SOL* 0.5 ML BTL ONE (10:22)
[2017-03-21] MEDS ORDERED: Insulin REGULAR(*) 1 UNITS UNIT ONE ×2 (12:02→12:50)
[2017-03-21] MEDS ORDERED: fentaNYL* 50 MCG/ML 2 ML VIAL (100 MCG VIAL) ONE (12:51)
[2017-03-21] MEDS ORDERED: Midazolam* 1 MG/ML 2 ML VIAL (2 MG) ONE (12:52)
[2017-03-21 13:46] VITALS: BP 107/94
[2017-03-21] MEDS ORDERED: acetaZOLAMIDE TAB* 250 MG ONE (13:51)
[2017-03-21] MEDS ORDERED: Lidocaine 1% MPF wEPI 200,000* 30 ML SDV ONE (13:51)
[2017-03-21] MEDS ORDERED: Neomycin/Polymy/Dex OPTH.SUSP* MAXITROL 0.1% 5 ML ONE (13:51)
[2017-03-21] MEDS ORDERED: Phenylephrine 2.5% OPTH.SOL* 2 ML BTL ONE (13:51)
[2017-03-21] MEDS ORDERED: Lidocaine 1% MPF* 2 ML VIAL ONE (13:51)
[2017-03-21] MEDS ORDERED: Buffered Lidocaine 0.9% SYRIN* 5 ML/SYR SYRINGE ONE (13:51)
[2017-03-21] MEDS ORDERED: Proparacaine 0.5% OPHTH.SOL* 15 ML BTL ONE (13:51)
[2017-03-21] MEDS ORDERED: Cyclopentolate 1% OPTH.SOL* 2 ML BTL ONE (13:51)
[2017-03-21] MEDS ORDERED: Povidone Iodine 5% OPTH* 30 ML BTL ONE (13:51)
[2017-03-21] MEDS ORDERED: Flurbiprofen 0.03% OPTH.SOL* 2.5 ML BTL ONE (13:51)
--- NOTE | 2017-03-21 14:59 | OP ---
DATE OF OPERATION: 03/21/2017 - [facility] DATE OF : 1955. SURGEON: Chuy Boateng M.D. PREOPERATIVE DIAGNOSIS: Cataract left eye. POSTOPERATIVE DIAGNOSIS: Cataract left eye. OPERATIVE PROCEDURE: Phacoemulsification left eye with IOL. DESCRIPTION OF PROCEDURE: The patient was brought to the operating room after being given 1/2% Alcaine with epinephrine drops in the preoperative area. The eye was prepped and draped in the usual sterile fashion. Sterile drape and eyelid speculum were placed. Again, topical 1/2% Alcaine with epinephrine was given. A paracentesis incision was made at the 3 o'clock position with the No.75 blade. Clear cornea incision 2.2 x 2.2-mm was created at the 6 o'clock position starting at the anterior limbus using the 2.2-mm keratome. The anterior chamber was irrigated with 0.4 mL of 1% non-preservative intracameral lidocaine and filled with DisCoVisc. A capsulorrhexis was completed using the cystotome and the Utrata forceps. Hydrodissection was performed with balanced salt solution. The lens nucleus was removed with the Phacoemulsification handpiece without incident. Cortex was removed with the irrigation-aspiration handpiece. The capsular bag was re-inflated using DisCoVisc and an [id number] 20 implant was inserted with the shooter. The irrigation-aspiration handpiece was used to remove all residual DisCoVisc. The eye was refilled with balanced salt solution and the wound checked and found to be watertight. Topical Maxitrol drops were given. [id number]/[facility] #: [id number] [facility]
== END 2017-03-21 14:02 | disposition home or self-care (01) ==
LOC: OREAST 09:44
PROVIDERS: ATTEND Specialist
DX: H25.812 Combined forms of age-related cataract, left eye (principal); E11.65 Type 2 diabetes mellitus with hyperglycemia; E11.3293 Type 2 diabetes mellitus with mild nonproliferative diabetic retinopathy without macular edema, bilateral; J44.1 Chronic obstructive pulmonary disease with (acute) exacerbation; I10 Essential (primary) hypertension; I42.9 Cardiomyopathy, unspecified; G47.33 Obstructive sleep apnea (adult) (pediatric); Z87.891 Personal history of nicotine dependence; Z99.81 Dependence on supplemental oxygen; Z79.4 Long term (current) use of insulin; Z79.84 Long term (current) use of oral hypoglycemic drugs
CPT/HCPCS: A9270-GY; J2001; J2250; J3010; V2632

== ENCOUNTER 2018-07-18 09:38 | Inpatient (IN) | payer MEDICARE, MEDICAID ==
[2018-07-18] MEDS ORDERED: Diltiazem IV VIAL* 125 MG in NS 0.9% 100 ML* 100 ML IVPB ONE (10:08)
[2018-07-18] MEDS ORDERED: Diltiazem IV* 5 MG/ML 5 ML VIAL (for loading dose/IV Push) (25 MG) IV SLOW PU ONE (10:08)
[2018-07-18 10:40] LABS: INR 0.96 (0.77-1.02)
[2018-07-18 10:42] LABS: ABS Basophils 0 10^3/ul (0-0.2); ABS Eosinophils 0.1 10^3/ul (0-0.6); ABS Lymphocytes 0.8 10^3/ul (1.0-4.8); ABS Monocytes 0.5 10^3/ul (0-0.8); ABS Neutrophils 6.9 10^3/ul (1.5-7.7); ABS Nucleated RBC 0 10^3/ul; Eosinophil % 0.8 % (0-6); Hematocrit 29 % (42-52); Hemoglobin 8.8 g/dl (14.0-18.0); Lymphocyte % 9.9 % (25-47); Mean Corpuscular HGB Conc 30 g/dl (31-36); Mean Corpuscular Hemoglobin 24 pg (27-31); Mean Corpuscular Volume 78 fL (80-94); Mean Platelet Volume 7.9 um3 (7.4-10.4); Nucleated Red Blood Cells % 0.1; Platelet Count 274 10^3/ul (150-450); Red Blood Count 3.71 10^6/ul (4.00-5.40); Red Cell Distribution Width 15 % (10.5-15); White Blood Count 8.3 10^3/ul (3.5-10.8)
--- NOTE | 2018-07-18 10:45 | ED ---
Shortness of Breath - HPI Summary HPI Summary: This patient is a 63 year old M presenting to [facility] with a chief complaint of SOB since oxygenator failed during the night. He notes that his O2 saturation dropped down to the 70s, and his HR went up to the 150s. He denies sx yesterday , CP, abd pain, HURTADO, and appetite change. He endorses BLE wounds, right worse than left. PMHx CHF, and normally uses 1L O2. PMHx DM, denies PMHx ID, asthma, COPD, angina, arrhythmia. Pt lives alone. - History of Current Complaint Chief Complaint: EDShortnessOfBreath Time Seen by Provider: 07/18/18 09:58 Hx Obtained From: Patient Onset/Duration: Gradual Onset, Lasting Hours, Still Present Timing: Constant Current Severity: Moderate Dyspnea At: Rest Aggrevating Factors: Other - Oxygenator failed overnight Alleviating Factors: Oxygen Associated Signs & Symptoms: Negative Related History: Obesity - Allergy/Home Medications Allergies/Adverse Reactions: Allergies Allergy/AdvReac Type Severity Reaction Status Date / Time shellfish derived Allergy Severe lips Verified 07/18/18 10:24 swell, itchy Penicillins Allergy Intermediate Rash Verified 07/18/18 10:24 PMH/Surg Hx/FS Hx/Imm Hx Endocrine/Hematology History: Reports: Hx Diabetes, Hx Anemia - TAKING IRON Cardiovascular History: Reports: Hx Congestive Heart Failure - SYSTOLIC CHF, Hx Hypertension - TAKING MEDICATION Denies: Hx Myocardial Infarction Respiratory History: Reports: Hx Chronic Obstructive Pulmonary Disease (COPD), Hx Pulmonary Edema, Hx Sleep Apnea GI History: Reports: Hx Hiatal Hernia - 25 years, Other GI Disorders - has some small gall stones- no issues History: Denies: Hx Dialysis, Hx Renal Disease Musculoskeletal History: Reports: Hx Arthritis - mild L4-L5, Other Musculoskeletal History - osteomyalgia bilateral foot Sensory History: Denies: Hx Contacts or Glasses, Hx Legally Blind, Hx Deafness, Hx Hearing Aid Opthamlomology History: Denies: Hx Contacts or Glasses, Hx Legally Blind EENT History: Denies: Hx Deafness Neurological History: Reports: Hx Nerve Disease - bilat neuropathy Psychiatric History: Reports: Hx Depression - Surgical History Surgery Procedure, Year, and Place: dental - teeth removed - sedated Hx Anesthesia Reactions: No - Immunization History Date of Tetanus Vaccine: Unk Date of Influenza Vaccine: None Infectious Disease History: Yes Infectious Disease History: Denies: Traveled Outside the [place] in Last 30 Days - Family History Known Family History: Positive: Cardiac Disease, Hypertension, Diabetes - Social History Occupation: Disabled Lives: Alone Alcohol Use: None Substance Use Type: Reports: None Hx Tobacco Use: No Smoking Status (MU): Never Smoked Tobacco Amount Used/How Often: only smoked 2 years - never inhaled Have You Smoked in the Last Year: No Review of Systems Negative: Fever Positive: Palpitations. Negative: Chest Pain Positive: Shortness Of Breath Negative: Abdominal Pain Positive: no symptoms reported Positive: Decreased ROM - BLE, Edema - RLE Positive: Rash - BLE Negative: Headache All Other Systems Reviewed And Are Negative: Yes Physical Exam - Summary Physical Exam Summary: Appearance: Obese male in mild respiratory distress. Skin: Warm, very dry lower extremities, ulcer on ball of lateral left foot, chronic deformity of right foot from prior trauma, ulcer on heel of right foot. Eyes: sclera anicteric, no conjunctival pallor ENT: mucous membranes moist, pharynx appears normal Neck: Supple, nontender Respiratory: Clear to auscultation, mild respiratory distress, distant breath sounds Cardiovascular: Rapid and irregular rhythm. No murmurs. Normal distal pulses in tibial and radial bilaterally. Abdomen: Soft, nontender, normal active bowel sounds present, protuberant. Large , non-tender periumbilical hernia Musculoskeletal: Normal, Strength/ROM Intact Neurological: A&Ox3, awake and alert, mentation is normal, speech is fluent and appropriate Psychiatric: affect is normal, does not appear anxious or depressed Triage Information Reviewed: Yes Vital Signs On Initial Exam: Initial Vitals Temp Pulse Resp BP Pulse Ox 98.0 F 151 28 113/69 100 07/18/18 09:48 07/18/18 09:48 07/18/18 09:48 07/18/18 09:48 07/18/18 09:48 Vital Signs Reviewed: Yes Diagnostics - Vital Signs Vital Signs Temp Pulse Resp BP Pulse Ox 07/18/18 09:48 98.0 F 151 28 113/69 100 - Laboratory Result Diagrams: 07/18/18 10:12 07/18/18 10:12 Lab Statement: Any lab studies that have been ordered have been reviewed, and results considered in the medical decision making process. - Radiology CXR Xray Interpretation: Positive (See Comments) Radiology Interpretation Completed By: Radiologist - Findings most constistent with CHF. Dr. Clement has reviewed this report. - EKG 0936 Cardiac Rate: Tachycardia - 145 EKG Rhythm: Atrial Fibrillation Ectopy: None EKG Interpretation: Afib with RVR, diffuse Q waves Re-Evaluation - Re-Evaluation First Eval Re-Evaluation Time: 11:06 Change: Unchanged Comment: Attempts to wean the patient off of nonrebreather have been unsuccessful with desaturation into the low 80s with 6 L nasal cannula. His chest x-ray shows evidence of congestive heart failure with some mild pulmonary edema, so I have ordered some Lasix and nitrates in addition to the IV Cardizem , which will be increased to 10 mg per hour. Care will need to be taken with the Cardizem as it can worsen oxygenation. His renal function is somewhat impaired and he is moderately anemic, but does not require a blood transfusion at this time. I will make arrangements to have him admitted to the hospital. Course/Dx - Course Course Of Treatment: A 63-year-old M presents to the ED with a CC of SOB for hours. (+) tachycardic (150s), hypoxic (70s) at home, unable to ambulate. (-) CP , abd pain, HURTADO, appetite change. PMHx DM, CHF, denies PMHx ID, COPD, ashtma. Generally on 1L oxygenator. A CXR reveals findings consistent with CHF. An EKG reveals AFib with RVR at 145 BPM, and diffuse Q waves. In the ED course, pt was given cardizem, insulin, and NTG. Pt labs show low RBC, low H&H, low MCV, low MCH, low MCHC, high neut %, low lymph %, low abs lymphs, low Cl-, high CO2, high BUN, high creat, high glucose, low AST, low ALT, a trop of .04, high BNP, low albumin, and high globulin. - Diagnoses Provider Diagnoses: Congestive heart failure, Diabetes, Anemia, Atrial fibrillation with rapid ventricular response - Physician Notifications Discussed Care of Patient With: Chana Rojas Time Discussed With Above Provider: 11:26 Instructed by Provider To: Other - accpets admission to ICU. - Critical Care Time Critical Care Time: 30-74 min - Acute hypoxic respiratory failure coupled with congestive heart failure and rapid atrial fibrillation requiring IV Cardizem and frequent reassessment. Discharge - Sign-Out/Discharge Documenting (check all that apply): Patient Departure - admit - Discharge Plan Condition: Critical Disposition: ADMITTED TO [facility] Referrals: Ismael Yoo MD [Primary Care Provider] - - Attestation Statements Document Initiated by Scribe: Yes Documenting Scribe: Yanick De La Fuente Provider For Whom Scribe is Documenting (Include Credential): Dr. Dev Clement MD Scribe Attestation: Yanick Perea scribed for Dr. Dev Clement MD on 07/18/18 at 1131.
[2018-07-18 10:53] LABS: EGFR Non-African American 39.8 (>60)
--- NOTE | 2018-07-18 10:57 | RAD ---
INDICATION: Shortness of breath. COMPARISON: Comparison is made with a prior study from January 31, 2017. TECHNIQUE: AP and lateral views of the chest were obtained. FINDINGS: The heart is mildly enlarged. The lungs are underinflated. There is prominence of the interstitial markings and small bilateral pleural effusions suggestive of congestive heart failure. IMPRESSION: FINDINGS MOST CONSISTENT WITH CONGESTIVE HEART FAILURE.
[2018-07-18] MEDS ORDERED: Diltiazem DRIP* 100 MG/100 ML ADDV.BAG IVPB ONE (11:00)
[2018-07-18] MEDS ORDERED: Furosemide IV* 10 MG/ML VIAL (40 MG) IV SLOW PU ONE (11:01)
[2018-07-18] MEDS ORDERED: Nitroglycerin 2% OINT* 1 GM PAK TOPICAL ONE (11:01)
[2018-07-18] MEDS ORDERED: Insulin REGULAR(*) 1 UNITS UNIT IV PUSH ONE (11:06)
[2018-07-18] MEDS: Heparin DRIP 25,000 UNITS(*) 25,000 UNITS/500 ML BAG IV SCH (12:21)
[2018-07-18] MEDS ORDERED: Heparin VIAL(*) 5000 UNITS/ML VIAL (FIVE THOUSAND) ONE (12:23)
[2018-07-18] MEDS: Heparin VIAL(*) 5000 UNITS/ML VIAL (FIVE THOUSAND) IV PRN ×2 (12:27→18:45)
[2018-07-18] MEDS ORDERED: Acetaminophen TAB* 325 MG PO PRN (12:34)
[2018-07-18] MEDS ORDERED: Digoxin IV* 0.5 MG/2 ML AMP (0.25 MG/ML) IV SLOW PU ONE ×2 (12:39→18:30)
[2018-07-18] MEDS ORDERED: Insulin GLARGINE(*) 1 UNITS UNIT SUBCUT ONE (12:44)
[2018-07-18] MEDS ORDERED: Dextrose 50% Syringe 50 ML* 25 GM/50 ML SYRINGE IV PUSH PRN (12:48)
[2018-07-18] MEDS ORDERED: Albuterol/Ipratropium NEB.SOL* Albuterol 2.5 MG/Ipratropium 0.5 MG 3 ML INH PRN (13:00)
--- NOTE | 2018-07-18 13:27 | RAD ---
HISTORY: L foot ulceration, base of 5th toe, question osteo COMPARISONS: None VIEWS: 2 , Frontal and lateral views of the left foot FINDINGS: BONE DENSITY: There is diffuse osteopenia. BONES: There is erosive change along the plantar aspect of the head of the fifth metatarsal with associated periosteal reaction. There are calcaneal enthesophytes. 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 ALIGNMENT: There is no dislocation. SOFT TISSUES: Unremarkable. OTHER FINDINGS: None. IMPRESSION: EROSIVE CHANGE OF THE HEAD OF THE FIFTH METATARSAL CONCERNING FOR OSTEOMYELITIS GIVEN THE HISTORY OF SOFT TISSUE ULCERATION.
--- NOTE | 2018-07-18 13:28 | RAD ---
Indication: RIGHT lateral malleolus level ulcer. Question osteomyelitis. Comparison: January 27, 2012 RIGHT foot radiographs. Technique: AP, mortise, and lateral views RIGHT ankle. Report: Soft tissue swelling and normal contour irregularity over the lateral malleolus consistent with clinical history of ulceration. No subcutaneous emphysema evident. Bone density appears decreased throughout. No fracture, periosteal reaction, Osteolysis, or suspicious osteosclerosis evident to indicate osteomyelitis. Heel spurs. Diffuse skeletal muscle atrophy and soft tissue edema. Peripheral vascular calcifications. IMPRESSION: #. Soft tissue swelling with evidence for ulceration over the lateral malleolus corresponding with clinical history. #. No radiographic findings to indicate osteomyelitis. If there is persistent clinical concern for osteomyelitis consider MRI or in setting of contraindication to MRI 3 phase bone scan for further assessment.
[2018-07-18 13:29] LABS: Urine Appearance Cloudy; Urine Blood 1+ (Negative); Urine Color Yellow; Urine Ketones Negative (Negative); Urine Protein 2+(100 mg/dL) (Negative); Urine Red Blood Cell 1+(3-5/hpf) (Absent); Urine Specific Gravity 1.021 (1.010-1.030); Urine Urobilinogen Negative (Negative); Urine White Blood Cell Trace(0-5/hpf) (Absent)
[2018-07-18] MEDS ORDERED: Perflutren Lipid Microsphere* 3 ML VIAL ONE (14:29)
[2018-07-18] MEDS ORDERED: Furosemide IV* 10 MG/ML VIAL (40 MG) IV ONE (15:00)
[2018-07-18] MEDS ORDERED: Vancomycin per Pharmacy* NOTE FOLLOW UP SCH (15:00)
[2018-07-18] MEDS ORDERED: Diltiazem TAB* 30 MG ONE (15:08)
[2018-07-18] MEDS ORDERED: Diltiazem TAB* 30 MG PO SCH (15:30)
[2018-07-18] MEDS ORDERED: Vancomycin(*) 2,000 MG in NS 0.9% 500 ML* 500 ML IVPB ONE (15:30)
[2018-07-18] MEDS: Cefepime 1 GM in Dextrose(*) 1 GM/50 ML BAG IV SCH (15:42)
[2018-07-18] MEDS ORDERED: Insulin LISPRO* 1 UNITS UNIT SUBCUT SCH ×3 (16:30→23:00)
[2018-07-18] MEDS: Diltiazem TAB* 30 MG PO SCH ×2 (17:00→22:15)
[2018-07-18] MEDS: Aspirin 81 mg CHEW TAB* 81 MG TAB.CHEW PO SCH (17:12)
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
[2018-07-18] MEDS ORDERED: Insulin LISPRO* 1 UNITS UNIT SUBCUT ONE ×3 (17:51→22:03)
--- NOTE | 2018-07-18 18:42 | ECHO ---
Patient: JAMIE SERRANO [facility] Rec#: [id number] : 1955 Date: 07/18/2018 Age: 63y Height: 188 cm / 74.0 in Weight: 118 kg / 260.1 lbs Sex: M BSA: 2.43 Room#: ICU 6 Admit Date#: 07/18/2018 Type: Inpatient Referring: Irasema Yost NP Reading: Preet Wood MD Trading Floor Operator: Roxanne Messer RDCS,RDMS CC: Man Yoo MD Transthoracic Echocardiogram Indication: CHF BP: 102/67 HR: 96 Rhythm: NSR Findings History: DM, PHTN, CHF, morbid obesity, former smoker Technical Comments: The study quality is fair. The study is technically limited due to poor acoustic windows. The study is technically limited due to patient being on BIPAP during study. Left Ventricle: The left ventricular chamber size is normal. Mild to moderate concentric left ventricular hypertrophy is observed. There is a focal wall motion abnormality present. The estimated ejection fraction is 50-55%. Abnormal left ventricular diastolic function is observed. The left ventricular diastolic filling pattern is consistent with pseudonormalization. The left ventricular diastolic filling pattern is consistent with elevated mean left atrial pressure. The patient was unable to perform a Valsalva maneuver. The basal inferolateral, basal inferior, basal inferoseptal, mid inferior, and mid inferoseptal wall segments are hypokinetic (score 2). Overall wallmotion score index is 1.31 Left Atrium: The left atrium is slightly dilated. Right Ventricle: The right ventricle wall thickness is mildly increased. The right ventricular cavity size is normal. The right ventricular global systolic function is mildly to moderately reduced. Right Atrium: The right atrial cavity size is normal. Aortic Valve: The aortic valve is trileaflet. The aortic valve leaflets are mildly thickened. Systolic excursion of the aortic valve is normal. There is no evidence of aortic regurgitation. There is no evidence of aortic stenosis. Mitral Valve: The mitral valve leaflets are mildly thickened. There is a trace of mitral regurgitation. There is no evidence of mitral stenosis. Tricuspid Valve: The tricuspid valve leaflets are normal. There is trace tricuspid regurgitation. Unable to estimate the right ventricular systolic pressure. Pulmonic Valve: The pulmonic valve appears normal. There is a trace pulmonic regurgitation. Pericardium: There is no significant pericardial effusion. Aorta: The aortic root appears normal. There is no dilatation of the aortic arch. Pulmonary Artery: The main pulmonary artery is not well visualized. Venous: The inferior vena cava appears normal in size. There is less than 50% respiratory change in the inferior vena cava dimension. Contrast: Definity was used to optimize study. A total of 2 ml was used. Conclusions The study is technically limited due to poor acoustic windows. Mild to moderate concentric left ventricular hypertrophy is observed. The estimated ejection fraction is 50-55%. The left ventricular diastolic filling pattern is consistent with pseudonormalization. The left ventricular diastolic filling pattern is consistent with elevated mean left atrial pressure. The left atrium is slightly dilated. The right ventricular global systolic function is mildly to moderately reduced. The aortic valve leaflets are mildly thickened. There is a trace of mitral regurgitation. There is trace tricuspid regurgitation. There is less than 50% respiratory change in the inferior vena cava dimension. Similar to 11/2015 except that the MR was mild then. Unable to view prior study to confirm the wall motion abnormality but the reported EF was similar then. Measurements Name Value Normal Range RVIDd (AP) 2D 4.2 cm (0.9 - 2.6) RAd ISD 4CH 5 cm (3.4 - 4.9) RA (A4C)W 4.4 cm (2.9 - 4.6) IVSd (2D) 1.5 cm (0.6 - 1) LVPWd (2D) 1.5 cm (0.6 - 1) LVIDd (2D) 4.7 cm (3.6 - 5.4) LVIDs (2D) 3.6 cm - LV FS (2D) 23 % (25 - 45) Aortic Annulus 2 cm (1.4 - 2.6) Ao root diameter (2D) 3 cm (2.1 - 3.5) Ascending Ao 3.1 cm (2.1 - 3.4) LA dimension (AP) 2D 4.2 cm (2.3 - 3.8) LAd ISD 4CH 5.6 cm (2.9 - 5.3) LA ISD 4CH W 4.3 cm (2.5 - 4.5) Name Value Normal Range LA ESV BP (A/L) index 34 ml/m2 - Name Value Normal Range MV E-wave Vmax 1.2 m/sec - MV deceleration time 195 msec - MV A-wave Vmax 1.1 m/sec - MV E:A ratio 1.1 ratio - LV septal e' Vmax 0.06 m/sec - LV lateral e' Vmax 0.07 m/sec - LV E:e' septal ratio 20 ratio - LV E:e' lateral ratio 17 ratio - Name Value Normal Range AV Vmax 1.6 m/sec - AV VTI 33 cm - AV peak gradient 10 mmHg - AV mean gradient 6 mmHg - LVOT Vmax 1 m/sec - LVOT VTI 21 cm - LVOT peak gradient 4 mmHg - LVOT mean gradient 2 mmHg - Name Value Normal Range MV Vmax 1.4 m/sec - MV VTI 35 cm - MV peak gradient 8 mmHg - MV mean gradient 4 mmHg - MV PHT 80 msec - MVA (PHT) 2.8 cm2 - Name Value Normal Range IVC diameter 1.7 cm - Name Value Normal Range PV Vmax 1.1 m/sec - PV peak gradient 5 mmHg - Wallmotion BAS Normal BA Normal BAL Normal ZACHARY Hypokinetic BI Hypokinetic BIS Hypokinetic MAS Normal MA Normal MAL Normal MIL Normal OH Hypokinetic MIS Hypokinetic Normal AA Normal AL Normal AI Normal APEX Normal
[2018-07-18] MEDS: Insulin GLARGINE(*) 1 UNITS UNIT SUBCUT SCH (21:33)
[2018-07-18] MEDS: Tamsulosin CAP* 0.4 MG PO SCH (21:33)
[2018-07-18] MEDS: Metoprolol Tartrate TAB* 50 mg PO SCH (21:33)
[2018-07-19] MEDS ORDERED: Digoxin IV* 0.5 MG/2 ML AMP (0.25 MG/ML) IV SLOW PU ONE ×3 (00:01→06:00)
[2018-07-19] MEDS: Vancomycin(*) 1,250 MG in NS 0.9% 250 ML* 250 ML IVPB SCH ×2 (00:10→07:45)
[2018-07-19] MEDS: Heparin VIAL(*) 5000 UNITS/ML VIAL (FIVE THOUSAND) IV PRN (01:48)
[2018-07-19] MEDS: Cefepime 1 GM in Dextrose(*) 1 GM/50 ML BAG IV SCH (03:03)
[2018-07-19] MEDS ORDERED: Furosemide IV* 10 MG/ML VIAL (40 MG) IV ONE (03:42)
[2018-07-19] MEDS: Diltiazem TAB* 30 MG PO SCH ×2 (04:00→12:44)
[2018-07-19] MEDS: Heparin DRIP 25,000 UNITS(*) 25,000 UNITS/500 ML BAG IV SCH (04:47)
[2018-07-19] MEDS ORDERED: Lidocaine 2% JELLY* 6 ML JELLY TOPICAL ONE ×2 (05:10→05:30)
[2018-07-19] MEDS ORDERED: oxyCODONE TAB* 5 MG TAB PO STA (05:13)
[2018-07-19] MEDS: Insulin LISPRO* 1 UNITS UNIT SUBCUT SCH ×4 (06:05→23:58)
[2018-07-19 06:16] LABS: ABS Basophils 0 10^3/ul (0-0.2); ABS Eosinophils 0.1 10^3/ul (0-0.6); ABS Lymphocytes 1.3 10^3/ul (1.0-4.8); ABS Monocytes 0.4 10^3/ul (0-0.8); ABS Neutrophils 4.8 10^3/ul (1.5-7.7); ABS Nucleated RBC 0 10^3/ul; Eosinophil % 1.8 % (0-6); Hematocrit 29 % (42-52); Hemoglobin 8.9 g/dl (14.0-18.0); Lymphocyte % 19.9 % (25-47); Mean Corpuscular HGB Conc 31 g/dl (31-36); Mean Corpuscular Hemoglobin 24 pg (27-31); Mean Corpuscular Volume 77 fL (80-94); Mean Platelet Volume 8.1 um3 (7.4-10.4); Nucleated Red Blood Cells % 0.1; Platelet Count 276 10^3/ul (150-450); Red Blood Count 3.72 10^6/ul (4.00-5.40); Red Cell Distribution Width 15 % (10.5-15); White Blood Count 6.6 10^3/ul (3.5-10.8)
--- NOTE | 2018-07-19 07:49 | CONSULT ---
Consult Consult: Orthopedic Surgery Consultation Date: 07/18/18 Requesting Service: Medicine Chief Complaint: Right ankle wound and c/f infection History: 63-year-old man with diabetes, history of infections, and peripheral vascular disease, who is admitted to the ICU with shortness of breath and A. fib with RVR. He was noted to have a right lateral ankle wound so orthopedics was consulted. He reports that he has had this wound for a couple of years. He reports that it started after an injury while working on his house. He reports that he has been taken care of at wound care in the past. He denies any recent improvement or worsening of the wound. He reports that he has never had surgery on the ankle. He does report he has had a long-standing ulcer between his fourth and fifth toes on the left as well. He denies any erythema on either foot or ankle. At baseline, he mostly uses a wheelchair, but will sometimes walk around his house. Review of Systems: Negative for fever, recent visual changes, difficulty swallowing, chest pain, abdominal pain, hematuria, easy bruising, lack of coordination, and diffuse rash. Positive for shortness of breath, weakness PMH: Poorly controlled diabetes, CHF, COPD, hypertension, anemia, obesity, pulmonary hypertension, depression PSH: Cataracts Medications: budesonide/formoterol, furosemide, Levemir, trajenta, losartan, metformin, baby aspirin, metoprolol, pantoprazole, Flomax Allergies: Shellfish and penicillin SH: Lives alone. Uses a wheelchair most of the time. No alcohol or tobacco use. FH: Stroke, [place] Physical Examination: Constitutional: General appearance is use of a face mask for shortness of breath, somewhat difficulty with sustained multiple sentences. Cardiovascular: Pulse examination demonstrates non-palpable pedal pulses with sluggish capillary refill. There are no varicosities. There are chronic venous stasis changes in the lower extremities. Abdomen: Soft and nontender Lymphatic: No lymphadenopathy appreciated. Skin: Bilateral upper extremity examination demonstrates no ulcerative lesions Psychiatric / Neurological: Appropriate affect. Alert and oriented to person, place and time. There is no significant abnormality in coordination appreciated. hypooreflexive deep tendon reflex of the lower extremities. Musculoskeletal: Bilateral upper extremities show full range of motion with no evidence of instability and no tenderness with palpation and 5/5 strength. There is no gross deformity. There is 5/5 motor strength and impaired light touch sensation. On the right side there is a wound over the lateral malleolus. There is no exposed bone. There is no surrounding erythema. There is no gross drainage or purulence. On the left side there is a small ulcer on the medial aspect of the fifth toe without any swelling, erythema, drainage, or purulence. I am unable to palpate pulses in his bilateral feet. Painless ankle and toe range of motion. Imaging: X-rays show possible osteomyelitis of the left fifth metatarsal head. No obvious osteomyelitis of the right ankle. Labs: WBC 6.6 CRP pending Impression and Plan: 63-year-old man with poorly controlled diabetes and peripheral vascular disease with chronic wounds to his right lateral ankle and left fifth toe. There does not appear to be an acute worsening or acute infection. There certainly could be chronic osteomyelitis, especially at the right lateral ankle wound, which he reports has been present for years. I would recommend ABIs and toe pressures to assess his vascular status. If abnormal, I would recommend a vascular consult. I would recommend an MRI of his right ankle and left foot, preferably with and without contrast if possible. If concerning for infection, I would recommend an infectious disease consult. I recommend a wound care consult. Robert Gomez MD
[2018-07-19] MEDS: Metoprolol Tartrate TAB* 50 mg PO SCH ×2 (08:47→21:11)
[2018-07-19] MEDS: Digoxin TAB* 0.125 MG PO SCH (08:47)
[2018-07-19] MEDS: Omeprazole CAP* 20 MG PO SCH (08:47)
[2018-07-19] MEDS: Insulin GLARGINE(*) 1 UNITS UNIT SUBCUT SCH ×2 (09:06→21:10)
--- NOTE | 2018-07-19 09:16 | PN ---
Subjective Date of Service: 07/19/18 Interval History: Pt stated that his "oxygen machine" was broken and he developed SOB without it, called 911 to get help. Lives in [place]. Does not drive. ambulates with a cane and has a wheelchair. B/l LE's wounds has had for "years". Denies CP, no melena or BRBPR Objective Active Medications: Acetaminophen (Tylenol Tab*) 650 mg PO Q6H PRN PRN Reason: PAIN Last Admin: 07/18/18 15:12 Dose: 650 mg Albuterol/Ipratropium (Duoneb (Albuterol 2.5 Mg/Ipratropium 0.5 Mg)) 1 neb INH Q4H PRN PRN Reason: SOB/WHEEZING Aspirin (Aspirin 81 Mg Chew Tab*) 81 mg PO QPM [facility] Last Admin: 07/18/18 17:12 Dose: 81 mg Dextrose (D50w Syringe 50 Ml*) 12.5 gm IV PUSH .FOR FS < 60 - SS PRN PRN Reason: FS < 60 Digoxin (Lanoxin Tab*) 0.125 mg PO DAILY [facility] Last Admin: 07/19/18 08:47 Dose: 0.125 mg Diltiazem HCl (Cardizem Tab*) 30 mg PO Q6H [facility] Last Admin: 07/19/18 04:00 Dose: 30 mg Heparin Sodium (Porcine) (Heparin Vial(*)) 0 units IV .PRN PRN PRN Reason: PER HEPARIN DRIP PROTOCOL Last Admin: 07/19/18 01:48 Dose: 6,700 units Heparin Sodium/Dextrose (Heparin Drip 25,000 Units(*)) 25,000 units in 500 mls @ 0 mls/hr IV PER RATE [facility]; Protocol Last Admin: 07/19/18 04:47 Dose: 45 mls/hr Cefepime HCl (Maxipime 1 Gm In Dextrose Duplex (*)) 1 gm in 50 mls @ 100 mls/ hr IV Q12H [facility] Last Admin: 07/19/18 03:03 Dose: 100 mls/hr Vancomycin HCl 1,250 mg/ (Sodium Chloride) 250 mls @ 166.667 mls/hr IVPB Q8H [facility] Last Admin: 07/19/18 07:45 Dose: 166.667 mls/hr Insulin Glargine (Lantus(*)) 55 units SUBCUT Q12H [facility] Last Admin: 07/19/18 09:06 Dose: 55 units Insulin Human Lispro (Humalog*) 0 units SUBCUT Q6HR [facility]; Protocol Last Admin: 07/19/18 06:05 Dose: 4 units Metoprolol Tartrate (Lopressor Tab*) 50 mg PO BID [facility] Last Admin: 07/19/18 08:47 Dose: 50 mg Omeprazole (Prilosec Cap*) 20 mg PO DAILY [facility] Last Admin: 07/19/18 08:47 Dose: 20 mg Pharmacy Consult (Vancomycin Per Pharmacy*) 1 note FOLLOW UP .VANC PER PHARMACY [facility] Pharmacy Profile Note (Vancomycin Trough Check) 1 note FOLLOW UP ONCE ONE Stop: 07/19/18 15:31 Tamsulosin HCl (Flomax Cap*) 0.4 mg PO BEDTIME [facility] Last Admin: 07/18/18 21:33 Dose: 0.4 mg Vital Signs - 8 hr 07/19/18 07/19/18 07/19/18 02:00 03:00 03:53 Temperature 98.4 F Pulse Rate 59 58 Respiratory 13 15 Rate Blood Pressure 119/52 128/61 (mmHg) O2 Sat by Pulse 95 99 Oximetry 07/19/18 07/19/18 07/19/18 04:00 05:00 06:00 Temperature Pulse Rate 66 71 71 Respiratory 12 20 24 Rate Blood Pressure 144/65 146/70 (mmHg) O2 Sat by Pulse 96 92 89 Oximetry 07/19/18 07/19/18 07/19/18 06:01 07:00 07:01 Temperature Pulse Rate 69 66 67 Respiratory 15 21 19 Rate Blood Pressure 137/71 148/65 (mmHg) O2 Sat by Pulse 97 99 100 Oximetry 07/19/18 07/19/18 07/19/18 07:28 08:00 08:01 Temperature 98.2 F Pulse Rate 71 71 Respiratory 31 23 Rate Blood Pressure 143/89 (mmHg) O2 Sat by Pulse 98 98 Oximetry 07/19/18 07/19/18 07/19/18 08:47 09:00 09:01 Temperature Pulse Rate 72 75 82 Respiratory 22 16 Rate Blood Pressure 169/79 (mmHg) O2 Sat by Pulse 92 94 Oximetry Oxygen Devices in Use Now: High Flow Nasal Cannula Appearance: 63 yo M in nAD, aAOx3 Eyes: No Scleral Icterus, PERRLA Ears/Nose/Mouth/Throat: NL Teeth, Lips, Gums, Mucous Membranes Moist Neck: NL Appearance and Movements; NL JVP, Trachea Midline Respiratory: Symmetrical Chest Expansion and Respiratory Effort, Clear to Auscultation, - - distant breath sounds b/l Cardiovascular: NL Sounds; No Murmurs; No JVD, RRR Abdominal: NL Sounds; No Tenderness; No Distention, - - large umbilical hernia, nontender Lymphatic: No Cervical Adenopathy Extremities: No Clubbing, Cyanosis, - - edema of b/l LE's+1 nonpitting.Unable to palpate pulses, but good cap. refill in b/l feet Skin: No Nodules or Sclerosis, - - R ankle lateral malleolus-granulating woundat 4-5 cm in diam-stage3, L foot-bottom lateral surface-head of left 5th metatarsal-wound covered with eschar at 3 cm-no acute infection noted Neurological: Alert and Oriented x 3, NL Muscle Strength and Tone Result Diagrams: 07/19/18 05:47 07/19/18 05:47 Microbiology and Other Data: Microbiology 07/18/18 13:42 Nasal Screen MRSA (PCR) - Final Nasal Mrsa Not Detected Assess/Plan/Problems-Billing Assessment: 63 yo M with hx of HTN, COPD on 2L, DM, LUANA, obesity, CHF was hypoxemic after his 02 concentrator broke down and presented to ED with hypoxemia and A. fib with RVR(new). chronic leg wounds were noted. - Patient Problems (1) Congestive heart failure Comment: Acute noted at admission, treated with lasix. With resultant acute hypoxemic respiratory failure. Today appears euvolemic Echo shows EF 55% with diastolic dysfunction Restart home PO lasix (2) Atrial fibrillation with rapid ventricular response Comment: converted to NSR after several hours on Cardizem gtt. Unknown duration , but suspect it started occuring when pt became hypoxic. Pt never experienced CP. due to marked hematuria heparin gtt was discontinued. Plan to monitor pt on telem and observe for recurrence cont Digoxin and BB (3) Osteomyelitis Comment: R ankle and left foot-likely chronic osteo. appreciate DR. Payne's consult Cont Doxy PO BID MRI as outpatient ANASTASIYA's abnormal , but due to increased creatinine not a good candidate for CTA- to f/u as outpatient (4) ELIZA (acute kidney injury) Comment: Pt has h/o CKD 3 due to DM. Creat slightly worse than baseline. cont to monitor Baseline creat 1.8-1.9 (5) Anemia Comment: Iron studies c/w ACD in 2017 Stool guaiac pending Hb at baseline (6) Diabetes Comment: cont ISS. Continue Lantus. holding metformin (7) Elevated troponin Comment: Troponin trending down, likely demand ischemia (8) HTN (hypertension) Comment: Holding home Losartan .cont metoprolol 50 bid (9) Hematuria Comment: heparin gtt stopped. zamora d/c'd , cont to monitor (10) DVT prophylaxis Comment: HSQ
--- NOTE | 2018-07-19 10:36 | RAD ---
INDICATION: Open wounds right ankle and left foot. COMPARISON: Comparison is made with a prior study from March 13, 2012. TECHNIQUE: Bilateral ankle brachial indices were measured and Doppler tracings were obtained at the ankle of the dorsalis pedis and posterior tibial arteries. FINDINGS: The ankle brachial index on the right was 0.83 and on the left was 0.64. The ankle brachial indices on the prior study were 1.25 and 1.28 respectively. There is triphasic flow within the right posterior tibial artery and biphasic flow within the right dorsalis pedis artery. There is monophasic flow within the left posterior tibial artery and biphasic flow within the left dorsalis pedis artery. IMPRESSION: DECREASED ANKLE-BRACHIAL INDICES AND WAVEFORMS CONSISTENT WITH PERIPHERAL ARTERIAL DISEASE WHICH IS A SIGNIFICANT CHANGE FROM THE PRIOR EXAM.
[2018-07-19] MEDS ORDERED: Vancomycin Trough Check NOTE FOLLOW UP ONE (15:30)
[2018-07-19] MEDS: Furosemide TAB* 40 MG PO SCH (15:59)
[2018-07-19] MEDS: Aspirin 81 mg CHEW TAB* 81 MG TAB.CHEW PO SCH (17:39)
[2018-07-19] MEDS: Tamsulosin CAP* 0.4 MG PO SCH (21:11)
[2018-07-19] MEDS: DOXYcycline CAP(*) 100 MG PO SCH (21:11)
--- NOTE | 2018-07-19 21:21 | CONS ---
CONSULTATION REPORT: DATE OF CONSULT: 07/19/18 REQUESTING PHYSICIAN: Dr. Martinez. CONSULTING SERVICE: Infectious Disease. REASON FOR CONSULT: Right lower leg ulcer. IMPRESSION: 1. Chronic nonhealing right lateral ankle ulcer with underlying granulation. No soft tissue infection. His ankle x-ray showed no changes to the lateral malleolus. I think underlying chronic osteomyelitis is less likely particularly given the duration of his symptoms and lack of radiographic abnormality. 2. Lower extremity lymphedema and venous stasis changes. 3. Chronic hypoxemic respiratory failure with acute exacerbation. 4. Type 2 diabetes with chronic kidney disease and peripheral neuropathy. RECOMMENDATION: Doxycycline 100 mg by mouth twice a day to cover for possibility of chronic osteomyelitis while other workup continues, which can occur as an outpatient if he is to be discharged. He can follow up with me in 2 to 3 weeks. Wound clinic followup as well. HISTORY OF PRESENT ILLNESS: This is a 63-year-old man admitted with acute on chronic hypoxemic respiratory failure. Workup for that is continuing. He is improving on supplemental oxygen. Incidentally was noted to have find a left lateral forefoot and right lateral ankle ulceration, which he says has been there for a couple of years, he keeps cleaning with alcohol, has not had any redness or drainage, has not had any particular wound care for it. He has had no fevers, chills, or sweats. Has not had redness develop around the wound. PAST MEDICAL HISTORY: 1. Morbid obesity. 2. Insulin-dependent diabetes with peripheral neuropathy and chronic kidney disease. 3. Chronic bilateral leg wounds. 4. Chronic systolic congestive heart failure, ejection fraction 40% to 45%. 5. COPD with chronic hypoxemic respiratory failure, on supplemental home oxygen. 6. Hypertension. 7. Anemia. 8. Obesity hypoventilation syndrome. 9. Dnrikame-eu-wudkyj pulmonary hypertension. 10. Low back pain. 11. Depression. ALLERGIES: SHELLFISH and PENICILLIN caused rash as a child. MEDICATIONS: 1. Tylenol. 2. Aspirin. 3. Dextrose. 4. Digoxin. 5. Insulin glargine. 6. Insulin lispro. 7. Cefepime 1 g every 12 hours. 8. Vancomycin. SOCIAL HISTORY: He lives at [facility]. Past smoker. No injection drugs. No sick contacts. FAMILY HISTORY: No recurrent infections. REVIEW OF SYSTEMS: All negative except as noted above in the history of present illness. PHYSICAL EXAM: Vital Signs: Temperature is 37.1, heart rate 60, respiratory rate 24, blood pressure 118/50, oxygen saturation 99% on 8 L. In general, he is awake, not in distress. Neurologic: He is oriented x3. Follows all commands. HEENT: There is no conjunctival hemorrhage. Oropharynx without lesions. Neck is supple without mass. Heart has regular rate and rhythm without murmurs, rubs, or gallops. Lungs have decreased breath sounds at the bases bilaterally without wheeze or rale. Abdomen: Soft, nontender, nondistended. Skin: There is no rash or splinter hemorrhage. Musculoskeletal : There is no spine tenderness to palpation. Right lateral malleolus, there is a 2.5-cm rounded wound with underlying granulation tissue. No surrounding erythema. There is slight serous drainage. Left lateral forefoot, there is a 4 -mm ulceration with granulation. LABORATORY DATA: Creatinine 2. White blood cell count 6, hemoglobin 8.9, platelets 276. Urinalysis shows red cells and hyaline casts. Please see impressions and recommendations as outlined above, which I have discussed with Dr. Martinez. Thanks for asking me to see Mr. Thapa in consultation. [id number]/[facility] #: [id number] TITUS
[2018-07-20] MEDS: Heparin VIAL(*) 5000 UNITS/ML VIAL (FIVE THOUSAND) SUBCUT SCH ×3 (05:21→21:15)
[2018-07-20] MEDS: Insulin LISPRO* 1 UNITS UNIT SUBCUT SCH ×3 (05:22→17:39)
[2018-07-20 05:57] LABS: EGFR Non-African American 38.8 (>60)
[2018-07-20] MEDS ORDERED: Furosemide IV* 10 MG/ML VIAL (40 MG) IV ONE (08:01)
[2018-07-20] MEDS: Insulin GLARGINE(*) 1 UNITS UNIT SUBCUT SCH (08:44)
[2018-07-20] MEDS: Omeprazole CAP* 20 MG PO SCH (08:44)
[2018-07-20] MEDS: Furosemide TAB* 40 MG PO SCH (08:45)
[2018-07-20] MEDS: Digoxin TAB* 0.125 MG PO SCH (08:45)
[2018-07-20] MEDS: Metoprolol Tartrate TAB* 50 mg PO SCH ×2 (08:45→21:14)
[2018-07-20] MEDS: DOXYcycline CAP(*) 100 MG PO SCH ×2 (08:45→21:15)
--- NOTE | 2018-07-20 11:08 | PN ---
Subjective Date of Service: 07/20/18 Interval History: Pt is appearing more lethargic today. c/o feeling tired. Needs two person assist to sit up in bed Pt still noted some hematuria Objective Active Medications: Acetaminophen (Tylenol Tab*) 650 mg PO Q6H PRN PRN Reason: PAIN Last Admin: 07/18/18 15:12 Dose: 650 mg Albuterol/Ipratropium (Duoneb (Albuterol 2.5 Mg/Ipratropium 0.5 Mg)) 1 neb INH Q4H PRN PRN Reason: SOB/WHEEZING Aspirin (Aspirin 81 Mg Chew Tab*) 81 mg PO QPM [facility] Last Admin: 07/19/18 17:39 Dose: 81 mg Dextrose (D50w Syringe 50 Ml*) 12.5 gm IV PUSH .FOR FS < 60 - SS PRN PRN Reason: FS < 60 Digoxin (Lanoxin Tab*) 0.125 mg PO DAILY [facility] Last Admin: 07/20/18 08:45 Dose: 0.125 mg Doxycycline Hyclate (Vibramycin Cap(*)) 100 mg PO BID [facility] Last Admin: 07/20/18 08:45 Dose: 100 mg Furosemide (Lasix Tab*) 40 mg PO DAILY [facility] Last Admin: 07/20/18 08:45 Dose: 40 mg Heparin Sodium (Porcine) (Heparin Vial(*)) 5,000 units SUBCUT Q8HR [facility] Last Admin: 07/20/18 05:21 Dose: 5,000 units Insulin Glargine (Lantus(*)) 55 units SUBCUT Q12H [facility] Last Admin: 07/20/18 08:44 Dose: 55 units Insulin Human Lispro (Humalog*) 0 units SUBCUT Q6HR [facility]; Protocol Last Admin: 07/20/18 05:22 Dose: 4 units Metoprolol Tartrate (Lopressor Tab*) 50 mg PO BID [facility] Last Admin: 07/20/18 08:45 Dose: 50 mg Omeprazole (Prilosec Cap*) 20 mg PO DAILY [facility] Last Admin: 07/20/18 08:44 Dose: 20 mg Tamsulosin HCl (Flomax Cap*) 0.4 mg PO BEDTIME [facility] Last Admin: 07/19/18 21:11 Dose: 0.4 mg Vital Signs - 8 hr 07/20/18 07/20/18 07/20/18 03:45 08:24 08:45 Temperature 98.1 F Pulse Rate 73 81 81 Respiratory 20 18 Rate Blood Pressure 152/59 (mmHg) O2 Sat by Pulse 98 93 Oximetry Oxygen Devices in Use Now: High Flow Nasal Cannula Appearance: 63 yo M in nAD, lethargic, AAOx3 Eyes: No Scleral Icterus, PERRLA Ears/Nose/Mouth/Throat: NL Teeth, Lips, Gums, Mucous Membranes Moist Neck: NL Appearance and Movements; NL JVP, Trachea Midline Respiratory: Symmetrical Chest Expansion and Respiratory Effort, - - crackles at b/l bases Cardiovascular: NL Sounds; No Murmurs; No JVD, RRR Abdominal: NL Sounds; No Tenderness; No Distention Lymphatic: No Cervical Adenopathy Extremities: No Clubbing, Cyanosis, - - trace pedal edema b/l Skin: No Nodules or Sclerosis, - - R ankle ulcer and left nottom foot ulcer unchanged Neurological: Alert and Oriented x 3, - - generalized weakness noted Result Diagrams: 07/19/18 05:47 07/20/18 05:19 Microbiology and Other Data: Microbiology 07/18/18 13:42 Nasal Screen MRSA (PCR) - Final Nasal Mrsa Not Detected Assess/Plan/Problems-Billing Assessment: 63 yo M with hx of HTN, COPD on 2L, DM, LUANA, obesity, CHF was hypoxemic after his 02 concentrator broke down and presented to ED with hypoxemia and A. fib with RVR(new). chronic leg wounds were noted. - Patient Problems (1) Lethargy Comment: suspect CO2 retention. check ABG, apply CPAP now (pt uses it an night) (2) Congestive heart failure Comment: Acute noted at admission. today appears hypervolemic again. will tx with IV Lasix again With resultant acute hypoxemic respiratory failure. Echo shows EF 55% with diastolic dysfunction Cont home PO lasix (3) Atrial fibrillation with rapid ventricular response Comment: converted to NSR after several hours on Cardizem gtt. Unknown duration , but suspect it started occuring when pt became hypoxic. Pt never experienced CP. due to marked hematuria heparin gtt was discontinued. Plan to monitor pt on telem and observe for recurrence cont Digoxin and BB (4) Osteomyelitis Comment: R ankle and left foot-likely chronic osteo. appreciate DR. Payne's consult Cont Doxy PO BID MRI as outpatient ANASTASIYA's abnormal , but due to increased creatinine not a good candidate for CTA- to f/u as outpatient (5) ELIZA (acute kidney injury) Comment: Pt has h/o CKD 3 due to DM. Creat back to baseline. cont to monitor Baseline creat 1.8-1.9 (6) Anemia Comment: Iron studies c/w ACD in 2017 Stool guaiac pending Hb at baseline (7) Diabetes Comment: cont ISS. Continue Lantus. holding metformin (8) Elevated troponin Comment: Troponin trending down, likely demand ischemia (9) HTN (hypertension) Comment: Holding home Losartan .cont metoprolol 50 bid (10) Hematuria Comment: heparin gtt stopped. zamora d/c'd , cont to monitor (11) DVT prophylaxis Comment: HSQ
[2018-07-20] MEDS ORDERED: Insulin GLARGINE(*) 1 UNITS UNIT SUBCUT SCH (14:44)
[2018-07-20] MEDS: Aspirin 81 mg CHEW TAB* 81 MG TAB.CHEW PO SCH (17:57)
[2018-07-20] MEDS: Tamsulosin CAP* 0.4 MG PO SCH (21:15)
[2018-07-21] MEDS: Insulin LISPRO* 1 UNITS UNIT SUBCUT SCH ×4 (00:35→18:04)
[2018-07-21] MEDS: Heparin VIAL(*) 5000 UNITS/ML VIAL (FIVE THOUSAND) SUBCUT SCH ×3 (05:48→21:50)
[2018-07-21 06:13] LABS: EGFR Non-African American 46.6 (>60)
--- NOTE | 2018-07-21 08:21 | PN ---
Subjective Date of Service: 07/21/18 Interval History: Pt feels well. Would like to go home when ready. Denies pain Objective Active Medications: Acetaminophen (Tylenol Tab*) 650 mg PO Q6H PRN PRN Reason: PAIN Last Admin: 07/18/18 15:12 Dose: 650 mg Albuterol/Ipratropium (Duoneb (Albuterol 2.5 Mg/Ipratropium 0.5 Mg)) 1 neb INH Q4H PRN PRN Reason: SOB/WHEEZING Aspirin (Aspirin 81 Mg Chew Tab*) 81 mg PO QPM [facility] Last Admin: 07/20/18 17:57 Dose: 81 mg Dextrose (D50w Syringe 50 Ml*) 12.5 gm IV PUSH .FOR FS < 60 - SS PRN PRN Reason: FS < 60 Last Admin: 07/20/18 11:44 Dose: 12.5 gm Digoxin (Lanoxin Tab*) 0.125 mg PO DAILY [facility] Last Admin: 07/20/18 08:45 Dose: 0.125 mg Doxycycline Hyclate (Vibramycin Cap(*)) 100 mg PO BID [facility] Last Admin: 07/20/18 21:15 Dose: 100 mg Furosemide (Lasix Tab*) 40 mg PO DAILY [facility] Last Admin: 07/20/18 08:45 Dose: 40 mg Heparin Sodium (Porcine) (Heparin Vial(*)) 5,000 units SUBCUT Q8HR [facility] Last Admin: 07/21/18 05:48 Dose: 5,000 units Insulin Glargine (Lantus(*)) 35 units SUBCUT Q12H [facility] Insulin Human Lispro (Humalog*) 0 units SUBCUT Q6HR [facility]; Protocol Last Admin: 07/21/18 05:49 Dose: 5 units Metoprolol Tartrate (Lopressor Tab*) 50 mg PO BID [facility] Last Admin: 07/20/18 21:14 Dose: 50 mg Omeprazole (Prilosec Cap*) 20 mg PO DAILY [facility] Last Admin: 07/20/18 08:44 Dose: 20 mg Tamsulosin HCl (Flomax Cap*) 0.4 mg PO BEDTIME [facility] Last Admin: 07/20/18 21:15 Dose: 0.4 mg Vital Signs - 8 hr 07/21/18 07/21/18 03:36 07:26 Temperature 98.3 F 98.1 F Pulse Rate 65 71 Respiratory 20 20 Rate Blood Pressure 130/54 145/55 (mmHg) O2 Sat by Pulse 100 91 Oximetry Oxygen Devices in Use Now: Nasal Cannula Appearance: 63 yo M in nAD, aAOx3 Eyes: No Scleral Icterus, PERRLA Ears/Nose/Mouth/Throat: NL Teeth, Lips, Gums, Mucous Membranes Moist Neck: NL Appearance and Movements; NL JVP, Trachea Midline Respiratory: Symmetrical Chest Expansion and Respiratory Effort, Clear to Auscultation Cardiovascular: NL Sounds; No Murmurs; No JVD, RRR Abdominal: NL Sounds; No Tenderness; No Distention, - - umbilical hernia present , soft, NT, BS+ Lymphatic: No Cervical Adenopathy Extremities: - - trace pedal edema b/l Skin: No Nodules or Sclerosis, - - R lateral malleolus and left lateral bottom foot ulcers unchanged from admission Neurological: Alert and Oriented x 3, - - due to obesity limited endurance and mobility , no motor deficit Result Diagrams: 07/19/18 05:47 07/21/18 05:41 Microbiology and Other Data: Microbiology 07/18/18 13:42 Nasal Screen MRSA (PCR) - Final Nasal Mrsa Not Detected Assess/Plan/Problems-Billing Assessment: 63 yo M with hx of HTN, COPD on 2L, DM, LUANA, obesity, CHF was hypoxemic after his 02 concentrator broke down and presented to ED with hypoxemia and A. fib with RVR(new). chronic leg wounds were noted. - Patient Problems (1) Lethargy Comment: due to CO2 narcosis and overtreatment with oxygen. Placed arameters for pt's 02 sat to be at 90% and not above. Suspect pt is used to 02 sat 88-90 at baseline. Will probably need 4 L 02 to go home . cont CPAP at night, although pt does not tolerate it at home (2) Congestive heart failure Comment: Acute noted at admission. today appears euvolemic . With resultant acute hypoxemic respiratory failure. Echo shows EF 55% with diastolic dysfunction Cont home PO lasix (3) Atrial fibrillation with rapid ventricular response Comment: converted to NSR after several hours on Cardizem gtt. Unknown duration , but suspect it started occuring when pt became hypoxic. Pt never experienced CP. due to marked hematuria heparin gtt was discontinued. Plan to monitor pt on telem and observe for recurrence cont Digoxin and BB (4) Osteomyelitis Comment: R ankle and left foot-likely chronic osteo. appreciate DR. Payne's consult Cont Doxy PO BID x 4 weeks, f/u with Dr. Payne's in 2 weeks MRI as outpatient ANASTASIYA's abnormal , but due to increased creatinine not a good candidate for CTA- to f/u as outpatient (5) ELIZA (acute kidney injury) Comment: Pt has h/o CKD 3 due to DM. Creat back to baseline. cont to monitor Baseline creat 1.8-1.9 (6) Anemia Comment: Iron studies c/w ACD in 2017 Stool guaiac pending Hb at baseline (7) Diabetes Comment: cont ISS. Continue Lantus. holding metformin (8) Elevated troponin Comment: Troponin trending down, likely demand ischemia (9) HTN (hypertension) Comment: Holding home Losartan .cont metoprolol 50 bid (10) Hematuria Comment: heparin gtt stopped. zamora d/c'd , cont to monitor (11) DVT prophylaxis Comment: HSQ Status and Disposition: inpatient. Pt wishes to go back to [place]. Awaiting PT/OT eval
[2018-07-21] MEDS: Furosemide TAB* 40 MG PO SCH (08:32)
[2018-07-21] MEDS: Metoprolol Tartrate TAB* 50 mg PO SCH ×2 (08:32→21:50)
[2018-07-21] MEDS: Insulin GLARGINE(*) 1 UNITS UNIT SUBCUT SCH ×2 (08:33→21:51)
[2018-07-21] MEDS: Digoxin TAB* 0.125 MG PO SCH (08:33)
[2018-07-21] MEDS: DOXYcycline CAP(*) 100 MG PO SCH ×2 (08:33→21:50)
[2018-07-21] MEDS: Omeprazole CAP* 20 MG PO SCH (08:33)
[2018-07-21] MEDS: Aspirin 81 mg CHEW TAB* 81 MG TAB.CHEW PO SCH (18:04)
[2018-07-21] MEDS: Tamsulosin CAP* 0.4 MG PO SCH (21:50)
[2018-07-22] MEDS: Insulin LISPRO* 1 UNITS UNIT SUBCUT SCH ×4 (00:35→18:03)
[2018-07-22] MEDS: Heparin VIAL(*) 5000 UNITS/ML VIAL (FIVE THOUSAND) SUBCUT SCH ×3 (05:27→21:47)
[2018-07-22] MEDS: Digoxin TAB* 0.125 MG PO SCH (07:57)
[2018-07-22] MEDS: Furosemide TAB* 40 MG PO SCH (07:57)
[2018-07-22] MEDS: Omeprazole CAP* 20 MG PO SCH (07:57)
[2018-07-22] MEDS: Metoprolol Tartrate TAB* 50 mg PO SCH ×2 (07:57→22:02)
[2018-07-22] MEDS: DOXYcycline CAP(*) 100 MG PO SCH (07:57)
[2018-07-22] MEDS: Insulin GLARGINE(*) 1 UNITS UNIT SUBCUT SCH ×2 (07:58→21:49)
--- NOTE | 2018-07-22 17:50 | PN ---
Subjective Date of Service: 07/22/18 Interval History: Drowsy.Denies any complaints.But falls asleep between sentences.Discussed NIPPV in detail with pt and pt refuses to wear his BIPAP. However discussed getting an ABG and need for BIPAP if abnormal and pt sort of agrees. Objective Active Medications: Acetaminophen (Tylenol Tab*) 650 mg PO Q6H PRN PRN Reason: PAIN Last Admin: 07/18/18 15:12 Dose: 650 mg Albuterol/Ipratropium (Duoneb (Albuterol 2.5 Mg/Ipratropium 0.5 Mg)) 1 neb INH Q4H PRN PRN Reason: SOB/WHEEZING Aspirin (Aspirin 81 Mg Chew Tab*) 81 mg PO QPM [facility] Last Admin: 07/21/18 18:04 Dose: 81 mg Dextrose (D50w Syringe 50 Ml*) 12.5 gm IV PUSH .FOR FS < 60 - SS PRN PRN Reason: FS < 60 Last Admin: 07/20/18 11:44 Dose: 12.5 gm Digoxin (Lanoxin Tab*) 0.125 mg PO DAILY [facility] Last Admin: 07/22/18 07:57 Dose: 0.125 mg Doxycycline Hyclate (Vibramycin Cap(*)) 100 mg PO BID [facility] Last Admin: 07/22/18 07:57 Dose: 100 mg Furosemide (Lasix Tab*) 40 mg PO DAILY [facility] Last Admin: 07/22/18 07:57 Dose: 40 mg Heparin Sodium (Porcine) (Heparin Vial(*)) 5,000 units SUBCUT Q8HR [facility] Last Admin: 07/22/18 14:06 Dose: 5,000 units Insulin Glargine (Lantus(*)) 35 units SUBCUT Q12H [facility] Last Admin: 07/22/18 07:58 Dose: 35 units Insulin Human Lispro (Humalog*) 0 units SUBCUT Q6HR [facility]; Protocol Last Admin: 07/22/18 11:42 Dose: Not Given Metoprolol Tartrate (Lopressor Tab*) 50 mg PO BID [facility] Last Admin: 07/22/18 07:57 Dose: 50 mg Omeprazole (Prilosec Cap*) 20 mg PO DAILY [facility] Last Admin: 07/22/18 07:57 Dose: 20 mg Tamsulosin HCl (Flomax Cap*) 0.4 mg PO BEDTIME [facility] Last Admin: 07/21/18 21:50 Dose: 0.4 mg Vital Signs - 8 hr 07/22/18 07/22/18 07/22/18 12:17 15:43 16:55 Temperature 97.4 F 97.5 F Pulse Rate 76 71 68 Respiratory 24 22 20 Rate Blood Pressure 149/65 148/58 (mmHg) O2 Sat by Pulse 93 98 97 Oximetry Oxygen Devices in Use Now: Nasal Cannula Eyes: No Scleral Icterus Ears/Nose/Mouth/Throat: NL Teeth, Lips, Gums Neck: NL Appearance and Movements; NL JVP Respiratory: - - Decreased bilateral air entry Cardiovascular: NL Sounds; No Murmurs; No JVD Abdominal: NL Sounds; No Tenderness; No Distention Extremities: No Edema Skin: No Rash or Ulcers Neurological: - - Drowsy and lethargic Result Diagrams: 07/19/18 05:47 07/22/18 05:22 Additional Lab and Data: ABG Abnormal Lab Results 07/21/18 07/21/18 07/22/18 17:44 21:04 00:17 ABG pH ABG pCO2 ABG pO2 ABG HCO3 ABG O2 Saturation ABG Base Excess Sodium Potassium Chloride Carbon Dioxide Anion Gap BUN Creatinine Est GFR ( Amer) Est GFR (Non-Af Amer) BUN/Creatinine Ratio Glucose POC Glucose (mg/dL) 140 H 130 H 157 H Calcium 07/22/18 07/22/18 07/22/18 05:22 05:22 11:34 ABG pH ABG pCO2 ABG pO2 ABG HCO3 ABG O2 Saturation ABG Base Excess Sodium 142 Potassium 4.6 Chloride 102 Carbon Dioxide 41 H* Anion Gap Not Reportable BUN 29 H Creatinine 1.33 H Est GFR ( Amer) 65.3 Est GFR (Non-Af Amer) 54.0 BUN/Creatinine Ratio 21.8 H Glucose 84 POC Glucose (mg/dL) 91 84 Calcium 8.8 07/22/18 07/22/18 12:22 16:35 ABG pH 7.33 L ABG pCO2 86 H* ABG pO2 59 L* ABG HCO3 38.0 H ABG O2 Saturation 92.6 L ABG Base Excess 16.9 H Sodium Potassium Chloride Carbon Dioxide Anion Gap BUN Creatinine Est GFR ( Amer) Est GFR (Non-Af Amer) BUN/Creatinine Ratio Glucose POC Glucose (mg/dL) 105 H Calcium Microbiology and Other Data: Microbiology 07/18/18 13:42 Nasal Screen MRSA (PCR) - Final Nasal Mrsa Not Detected Assess/Plan/Problems-Billing Assessment: 63 yo M with hx of HTN, COPD on 2L, DM, LUANA, obesity, CHF was hypoxemic after his 02 concentrator broke down and presented to ED with hypoxemia and A. fib with RVR(new). chronic leg wounds were noted. - Patient Problems (1) Lethargy Current Visit: Yes Status: Acute Code(s): R53.83 - OTHER FATIGUE SNOMED Code(s): 274209049 Comment: due to CO2 narcosis and overtreatment with oxygen. Placed arameters for pt's 02 sat to be at 90% and not above. Suspect pt is used to 02 sat 88-90 at baseline. Will probably need 4 L 02 to go home . Pt more drowsy lethargic today.Counseled pt to use BIPAP but refuses and has not been wearing his BIPAP.Pt was a full code before.At this time pt not having a conservation about this and will have to re address this when he is more conversational.Able to protect his airway.Answering questions.But sleepy between sentences.Reports that he has CPAP at home but not sure if he is using it.Will repeat ABG on pt and place on BIPAP and make sure not to hyperventilate or overtreat with oxygen (2) Atrial fibrillation with rapid ventricular response Current Visit: Yes Status: Acute Code(s): I48.91 - UNSPECIFIED ATRIAL FIBRILLATION SNOMED Code(s): 315836835623764 Comment: converted to NSR after several hours on Cardizem gtt. Unknown duration, but suspect it started occuring when pt became hypoxic. Pt never experienced CP. due to marked hematuria heparin gtt was discontinued. Plan to monitor pt on telem and observe for recurrence cont Digoxin and BB.Pt has been sinus on monitor (3) Hematuria Current Visit: Yes Status: Acute Code(s): R31.9 - HEMATURIA, UNSPECIFIED SNOMED Code(s): 35632670 Comment: heparin gtt stopped. zamora d/c'd , cont to monitor (4) Osteomyelitis Current Visit: Yes Status: Acute Code(s): M86.9 - OSTEOMYELITIS, UNSPECIFIED SNOMED Code(s): 83497248 Comment: R ankle and left foot-likely chronic osteo. appreciate DR. Payne's consult Cont Doxy PO BID x 4 weeks, f/u with Dr. Payne's in 2 weeks MRI as outpatient ANASTASIYA's abnormal , but due to increased creatinine not a good candidate for CTA- to f/u as outpatient (5) ELIZA (acute kidney injury) Current Visit: No Status: Acute Code(s): N17.9 - ACUTE KIDNEY FAILURE, UNSPECIFIED SNOMED Code(s): 54974364 Comment: Pt has h/o CKD 3 due to DM. Creat back to baseline. cont to monitor Baseline creat 1.8-1.9 (6) Altered mental status Current Visit: No Status: Acute Priority: High Onset Date: 04/19/14 Code (s): R41.82 - ALTERED MENTAL STATUS, UNSPECIFIED SNOMED Code(s): 950566619 (7) Anemia Current Visit: No Status: Acute Code(s): D64.9 - ANEMIA, UNSPECIFIED SNOMED Code(s): 080757631 Comment: Iron studies c/w ACD in 2017 Stool guaiac pending Hb at baseline (8) Pulmonary hypertension Current Visit: No Status: Acute Code(s): I27.2 - OTHER SECONDARY PULMONARY HYPERTENSION * DO NOT USE * SNOMED Code(s): 68929801 Status and Disposition: inpatient. Pt wishes to go back to [facility].
[2018-07-22] MEDS: Aspirin 81 mg CHEW TAB* 81 MG TAB.CHEW PO SCH (18:03)
[2018-07-22] MEDS ORDERED: Succinylcholine* 20 MG/ML 10 ML VIAL ONE (20:23)
[2018-07-22] MEDS ORDERED: Metoprolol Tartrate IV* 1 MG/ML 5 ML VIAL IV PRN (21:23)
[2018-07-22] MEDS: Tamsulosin CAP* 0.4 MG PO SCH (22:02)
[2018-07-22] MEDS: DOXYcycline IV* 100 MG in NS 0.9% 250 ML* 250 ML IVPB SCH (22:43)
[2018-07-23] MEDS: Insulin LISPRO* 1 UNITS UNIT SUBCUT SCH ×4 (00:47→18:27)
[2018-07-23 04:28] LABS: ABS Basophils 0 10^3/ul (0-0.2); ABS Eosinophils 0.1 10^3/ul (0-0.6); ABS Monocytes 0.5 10^3/ul (0-0.8); ABS Neutrophils 3.4 10^3/ul (1.5-7.7); ABS Nucleated RBC 0 10^3/ul; Hematocrit 25 % (42-52); Hemoglobin 7.5 g/dl (14.0-18.0); Lymphocyte % 19.2 % (25-47); Mean Corpuscular HGB Conc 30 g/dl (31-36); Mean Corpuscular Hemoglobin 24 pg (27-31); Mean Corpuscular Volume 78 fL (80-94); Mean Platelet Volume 7.8 um3 (7.4-10.4); Nucleated Red Blood Cells % 0.1; Platelet Count 261 10^3/ul (150-450); Red Blood Count 3.18 10^6/ul (4.00-5.40); Red Cell Distribution Width 15 % (10.5-15)
[2018-07-23 05:41] LABS: Hematocrit 30 % (42-52); Hemoglobin 9.1 g/dl (14.0-18.0)
[2018-07-23] MEDS: Heparin VIAL(*) 5000 UNITS/ML VIAL (FIVE THOUSAND) SUBCUT SCH ×3 (05:51→21:48)
[2018-07-23] MEDS: DOXYcycline CAP(*) 100 MG PO SCH (07:12)
[2018-07-23] MEDS: Metoprolol Tartrate TAB* 50 mg PO SCH ×2 (07:58→21:48)
[2018-07-23] MEDS: Omeprazole CAP* 20 MG PO SCH (07:58)
[2018-07-23] MEDS: Digoxin TAB* 0.125 MG PO SCH (07:58)
[2018-07-23] MEDS: Furosemide TAB* 40 MG PO SCH (07:58)
[2018-07-23] MEDS: Insulin GLARGINE(*) 1 UNITS UNIT SUBCUT SCH ×2 (07:59→21:48)
--- NOTE | 2018-07-23 08:59 | RAD ---
INDICATION: Change in mental status COMPARISON: Most recent comparison chest x-rays dated July 18, 2018 TECHNIQUE: Single AP portable view of the chest was obtained. FINDINGS: Image quality is compromised due to the relative inferiority of a portable chest x-ray. The heart and mediastinum exhibit normal size and contour. There are patchy densities overlying the bilateral lungs similar in appearance to the previous chest x-ray. The pulmonary vasculature is mildly engorged and indistinct. There is persistent elevation of the right hemidiaphragm. Visualized bones are normal for the patient's age. IMPRESSION: The findings are most consistent with pulmonary edema similar to the previous chest x-ray. Alternative etiologies include pneumonitis or early ARDS. R1
[2018-07-23] MEDS ORDERED: NS 0.9% 250 ML* 250 ML ONE (10:03)
[2018-07-23] MEDS: DOXYcycline IV* 100 MG in NS 0.9% 250 ML* 250 ML IVPB SCH ×2 (10:12→22:53)
--- NOTE | 2018-07-23 10:35 | PN ---
Subjective Date of Service: 07/23/18 Interval History: Has been on BIPAP in the ICU overnight 20/05 40% Fi02 with improvement.Mental status better.Awake alert and now pt agreeable to using his CPAP at home and BIPAP in the hospital Objective Active Medications: Acetaminophen (Tylenol Tab*) 650 mg PO Q6H PRN PRN Reason: PAIN Last Admin: 07/18/18 15:12 Dose: 650 mg Albuterol/Ipratropium (Duoneb (Albuterol 2.5 Mg/Ipratropium 0.5 Mg)) 1 neb INH Q4H PRN PRN Reason: SOB/WHEEZING Aspirin (Aspirin 81 Mg Chew Tab*) 81 mg PO QPM [facility] Last Admin: 07/22/18 18:03 Dose: Not Given Dextrose (D50w Syringe 50 Ml*) 12.5 gm IV PUSH .FOR FS < 60 - SS PRN PRN Reason: FS < 60 Last Admin: 07/20/18 11:44 Dose: 12.5 gm Digoxin (Lanoxin Tab*) 0.125 mg PO DAILY [facility] Last Admin: 07/23/18 07:58 Dose: 0.125 mg Furosemide (Lasix Tab*) 40 mg PO DAILY [facility] Last Admin: 07/23/18 07:58 Dose: 40 mg Heparin Sodium (Porcine) (Heparin Vial(*)) 5,000 units SUBCUT Q8HR [facility] Last Admin: 07/23/18 05:51 Dose: 5,000 units Doxycycline Hyclate 100 mg/ (Sodium Chloride) 250 mls @ 250 mls/hr IVPB Q12H [facility] Last Admin: 07/23/18 10:12 Dose: 250 mls/hr Insulin Glargine (Lantus(*)) 35 units SUBCUT Q12H [facility] Last Admin: 07/23/18 07:59 Dose: 35 units Insulin Human Lispro (Humalog*) 0 units SUBCUT Q6HR [facility]; Protocol Last Admin: 07/23/18 05:49 Dose: Not Given Metoprolol Tartrate (Lopressor Tab*) 50 mg PO BID [facility] Last Admin: 07/23/18 07:58 Dose: 50 mg Metoprolol Tartrate (Lopressor Iv*) 2.5 mg IV Q6H PRN PRN Reason: BLOOD PRESSURE Last Admin: 07/22/18 21:50 Dose: 2.5 mg Omeprazole (Prilosec Cap*) 20 mg PO DAILY [facility] Last Admin: 07/23/18 07:58 Dose: 20 mg Tamsulosin HCl (Flomax Cap*) 0.4 mg PO BEDTIME [facility] Last Admin: 07/22/18 22:02 Dose: Not Given Vital Signs - 8 hr 07/23/18 07/23/18 07/23/18 02:45 03:00 03:01 Temperature 97.2 F 97.0 F 97.0 F Pulse Rate 64 63 61 Respiratory 20 20 20 Rate Blood Pressure 132/58 131/65 (mmHg) O2 Sat by Pulse 97 97 97 Oximetry 07/23/18 07/23/18 07/23/18 03:15 03:30 03:45 Temperature 96.6 F 96.3 F 96.3 F Pulse Rate 63 69 64 Respiratory 20 21 21 Rate Blood Pressure 127/59 144/66 136/61 (mmHg) O2 Sat by Pulse 96 99 96 Oximetry 07/23/18 07/23/18 07/23/18 04:00 04:01 04:15 Temperature 97.5 F 97.5 F 97.5 F Pulse Rate 70 68 68 Respiratory 24 23 14 Rate Blood Pressure 167/75 163/77 (mmHg) O2 Sat by Pulse 97 97 99 Oximetry 07/23/18 07/23/18 07/23/18 04:31 04:45 05:00 Temperature 97.2 F 97.5 F 97.9 F Pulse Rate 69 66 66 Respiratory 24 15 16 Rate Blood Pressure 160/73 160/68 149/68 (mmHg) O2 Sat by Pulse 99 98 98 Oximetry 07/23/18 07/23/18 07/23/18 05:01 05:15 05:30 Temperature 97.9 F 98.1 F 98.1 F Pulse Rate 67 67 66 Respiratory 20 15 21 Rate Blood Pressure 149/70 148/68 (mmHg) O2 Sat by Pulse 98 98 96 Oximetry 07/23/18 07/23/18 07/23/18 05:55 06:00 06:01 Temperature 98.1 F 98.1 F Pulse Rate 66 64 Respiratory 18 24 21 Rate Blood Pressure 155/68 (mmHg) O2 Sat by Pulse 97 98 Oximetry 07/23/18 07/23/18 07/23/18 06:15 06:30 06:45 Temperature 95.4 F 97.0 F 96.8 F Pulse Rate 71 70 58 Respiratory 19 24 14 Rate Blood Pressure 154/64 163/75 149/69 (mmHg) O2 Sat by Pulse 100 100 99 Oximetry 07/23/18 07/23/18 07/23/18 07:00 07:01 07:13 Temperature 96.6 F 96.4 F Pulse Rate 67 65 70 Respiratory 24 21 27 Rate Blood Pressure 152/81 (mmHg) O2 Sat by Pulse 99 99 100 Oximetry 07/23/18 07/23/18 07/23/18 07:15 07:19 07:30 Temperature 98.4 F 97.5 F Pulse Rate 67 72 Respiratory 23 25 14 Rate Blood Pressure 167/68 162/62 (mmHg) O2 Sat by Pulse 100 100 Oximetry 07/23/18 07/23/18 07/23/18 07:45 07:58 08:00 Temperature 98.4 F 97.5 F Pulse Rate 72 71 73 Respiratory 14 19 Rate Blood Pressure 171/75 (mmHg) O2 Sat by Pulse 99 97 Oximetry 07/23/18 07/23/18 07/23/18 08:01 08:07 08:15 Temperature 98.4 F 98.2 F Pulse Rate 76 75 Respiratory 17 19 25 Rate Blood Pressure 177/71 177/78 (mmHg) O2 Sat by Pulse 98 97 Oximetry 07/23/18 07/23/18 07/23/18 08:30 08:46 09:00 Temperature 98.2 F 97.9 F 97.7 F Pulse Rate 70 81 65 Respiratory 20 34 20 Rate Blood Pressure 165/68 161/73 132/63 (mmHg) O2 Sat by Pulse 96 90 93 Oximetry 07/23/18 07/23/18 07/23/18 09:04 09:15 10:00 Temperature 97.2 F 98.8 F Pulse Rate 64 63 Respiratory 17 22 19 Rate Blood Pressure 134/53 (mmHg) O2 Sat by Pulse 92 93 Oximetry 07/23/18 07/23/18 10:11 10:15 Temperature 98.6 F Pulse Rate 62 Respiratory 24 22 Rate Blood Pressure 136/57 (mmHg) O2 Sat by Pulse 94 Oximetry Oxygen Devices in Use Now: Simple Face Mask, OxyMask Eyes: No Scleral Icterus Ears/Nose/Mouth/Throat: NL Teeth, Lips, Gums Neck: NL Appearance and Movements; NL JVP Respiratory: - - Decreased breath sounds bilaterally Cardiovascular: NL Sounds; No Murmurs; No JVD Abdominal: NL Sounds; No Tenderness; No Distention Extremities: - - chronic edema and venous stasis changes Skin: - - chronic LE ulcers Neurological: Alert and Oriented x 3, NL Muscle Strength and Tone Result Diagrams: 07/23/18 05:10 07/23/18 04:00 Additional Lab and Data: ABG Abnormal Lab Results 07/21/18 07/21/18 07/22/18 17:44 21:04 00:17 ABG pH ABG pCO2 ABG pO2 ABG HCO3 ABG O2 Saturation ABG Base Excess Sodium Potassium Chloride Carbon Dioxide Anion Gap BUN Creatinine Est GFR ( Amer) Est GFR (Non-Af Amer) BUN/Creatinine Ratio Glucose POC Glucose (mg/dL) 140 H 130 H 157 H Calcium 07/22/18 07/22/18 07/22/18 05:22 05:22 11:34 ABG pH ABG pCO2 ABG pO2 ABG HCO3 ABG O2 Saturation ABG Base Excess Sodium 142 Potassium 4.6 Chloride 102 Carbon Dioxide 41 H* Anion Gap Not Reportable BUN 29 H Creatinine 1.33 H Est GFR ( Amer) 65.3 Est GFR (Non-Af Amer) 54.0 BUN/Creatinine Ratio 21.8 H Glucose 84 POC Glucose (mg/dL) 91 84 Calcium 8.8 07/22/18 07/22/18 12:22 16:35 ABG pH 7.33 L ABG pCO2 86 H* ABG pO2 59 L* ABG HCO3 38.0 H ABG O2 Saturation 92.6 L ABG Base Excess 16.9 H Sodium Potassium Chloride Carbon Dioxide Anion Gap BUN Creatinine Est GFR ( Amer) Est GFR (Non-Af Amer) BUN/Creatinine Ratio Glucose POC Glucose (mg/dL) 105 H Calcium Microbiology and Other Data: Microbiology 07/18/18 13:42 Nasal Screen MRSA (PCR) - Final Nasal Mrsa Not Detected Assess/Plan/Problems-Billing Assessment: 63 yo M with hx of HTN, COPD on 2L, DM, LUANA, obesity, CHF was hypoxemic after his 02 concentrator broke down and presented to ED with hypoxemia and A. fib with RVR(new). chronic leg wounds were noted. - Patient Problems (1) Hypercapnic respiratory failure Current Visit: Yes Status: Acute Code(s): J96.92 - RESPIRATORY FAILURE, UNSPECIFIED WITH HYPERCAPNIA SNOMED Code(s): 361064493 Comment: C02 narcosis and hypercapnic resp failure from obesity hypoventilation syndrome poss sleep apnea copd and pulmonary hypertension Pt refused to wear his BIPAP in the hospital Recent intubation and extubation for resp failure C02 narcosis with co2 in the 100s with lethargy late evening overnight Transferred to ICU Has been on BIPAP 20/05 with improvement in mental status Agrees to wear BIPAP now Will need to wear it every night and as needed in the day Will recheck ABG at 12 noon if ok can transfer back to floor (2) Lethargy Current Visit: Yes Status: Acute Code(s): R53.83 - OTHER FATIGUE SNOMED Code(s): 661886065 Comment: See above (3) Atrial fibrillation with rapid ventricular response Current Visit: Yes Status: Acute Code(s): I48.91 - UNSPECIFIED ATRIAL FIBRILLATION SNOMED Code(s): 520993140523740 Comment: converted to NSR after several hours on Cardizem gtt. Unknown duration, but suspect it started occuring when pt became hypoxic. Pt never experienced CP. due to marked hematuria heparin gtt was discontinued. Plan to monitor pt on telem and observe for recurrence cont Digoxin and BB.Pt has been sinus on monitor (4) Hematuria Current Visit: Yes Status: Acute Code(s): R31.9 - HEMATURIA, UNSPECIFIED SNOMED Code(s): 63694223 Comment: heparin gtt stopped. zamora d/c'd , cont to monitor (5) Osteomyelitis Current Visit: Yes Status: Acute Code(s): M86.9 - OSTEOMYELITIS, UNSPECIFIED SNOMED Code(s): 47055019 Comment: R ankle and left foot-likely chronic osteo. appreciate DR. Payne's consult Cont Doxy PO BID x 4 weeks, f/u with Dr. Payne's in 2 weeks MRI as outpatient ANASTASIYA's abnormal , but due to increased creatinine not a good candidate for CTA- to f/u as outpatient (6) ELIZA (acute kidney injury) Current Visit: No Status: Acute Code(s): N17.9 - ACUTE KIDNEY FAILURE, UNSPECIFIED SNOMED Code(s): 90411065 Comment: Pt has h/o CKD 3 due to DM. Creat back to baseline. cont to monitor Baseline creat 1.8-1.9 (7) Altered mental status Current Visit: No Status: Acute Priority: High Onset Date: 04/19/14 Code (s): R41.82 - ALTERED MENTAL STATUS, UNSPECIFIED SNOMED Code(s): 551867491 (8) Anemia Current Visit: No Status: Acute Code(s): D64.9 - ANEMIA, UNSPECIFIED SNOMED Code(s): 514271860 Comment: Iron studies c/w ACD in 2017 Stool guaiac pending Hb at baseline (9) Pulmonary hypertension Current Visit: No Status: Acute Code(s): I27.2 - OTHER SECONDARY PULMONARY HYPERTENSION * DO NOT USE * SNOMED Code(s): 54915013 Status and Disposition: inpatient. Can transfer back to floor if stable.Plan to try on 4l oxygen in daytime and NIPPV QHS and if stable, will need to discharge with CPAP and oxygen when stable.Counselled pt to be complaint with CPAP at home
[2018-07-23] MEDS: LORazepam TAB(*) 0.5 MG PO PRN (11:07)
[2018-07-23] MEDS: Aspirin 81 mg CHEW TAB* 81 MG TAB.CHEW PO SCH (18:26)
[2018-07-23] MEDS: Tamsulosin CAP* 0.4 MG PO SCH (21:47)
[2018-07-24] MEDS: Insulin LISPRO* 1 UNITS UNIT SUBCUT SCH ×4 (01:21→19:12)
[2018-07-24 06:01] LABS: ABS Basophils 0 10^3/ul (0-0.2); ABS Eosinophils 0.1 10^3/ul (0-0.6); ABS Lymphocytes 1.1 10^3/ul (1.0-4.8); ABS Monocytes 0.5 10^3/ul (0-0.8); ABS Nucleated RBC 0 10^3/ul; Eosinophil % 2.2 % (0-6); Hematocrit 24 % (42-52); Hemoglobin 7.5 g/dl (14.0-18.0); Lymphocyte % 23.2 % (25-47); Mean Corpuscular HGB Conc 31 g/dl (31-36); Mean Corpuscular Hemoglobin 24 pg (27-31); Mean Corpuscular Volume 78 fL (80-94); Nucleated Red Blood Cells % 0.1; Platelet Count 231 10^3/ul (150-450); Red Cell Distribution Width 15 % (10.5-15); White Blood Count 4.7 10^3/ul (3.5-10.8)
[2018-07-24 06:14] LABS: EGFR Non-African American 52.6 (>60)
[2018-07-24] MEDS: Heparin VIAL(*) 5000 UNITS/ML VIAL (FIVE THOUSAND) SUBCUT SCH ×3 (06:24→21:18)
[2018-07-24] MEDS: Furosemide TAB* 40 MG PO SCH (09:32)
[2018-07-24] MEDS: Metoprolol Tartrate TAB* 50 mg PO SCH ×2 (09:32→20:57)
[2018-07-24] MEDS: Omeprazole CAP* 20 MG PO SCH (09:32)
[2018-07-24] MEDS: Digoxin TAB* 0.125 MG PO SCH (09:32)
[2018-07-24] MEDS: DOXYcycline IV* 100 MG in NS 0.9% 250 ML* 250 ML IVPB SCH (10:19)
[2018-07-24] MEDS ORDERED: Furosemide IV* 10 MG/ML VIAL (40 MG) IV ONE (15:42)
--- NOTE | 2018-07-24 16:13 | PN ---
Subjective Date of Service: 07/24/18 Interval History: MRI ordered by ortho service was not tolerated by Pt. currently denies pain. C/ o unchanged SOB Objective Active Medications: Acetaminophen (Tylenol Tab*) 650 mg PO Q6H PRN PRN Reason: PAIN Last Admin: 07/18/18 15:12 Dose: 650 mg Acetazolamide (Diamox Tab*) 250 mg PO BID [facility] Albuterol/Ipratropium (Duoneb (Albuterol 2.5 Mg/Ipratropium 0.5 Mg)) 1 neb INH Q4H PRN PRN Reason: SOB/WHEEZING Aspirin (Aspirin 81 Mg Chew Tab*) 81 mg PO QPM [facility] Last Admin: 07/23/18 18:26 Dose: 81 mg Dextrose (D50w Syringe 50 Ml*) 12.5 gm IV PUSH .FOR FS < 60 - SS PRN PRN Reason: FS < 60 Last Admin: 07/20/18 11:44 Dose: 12.5 gm Digoxin (Lanoxin Tab*) 0.125 mg PO DAILY [facility] Last Admin: 07/24/18 09:32 Dose: 0.125 mg Furosemide (Lasix Tab*) 40 mg PO DAILY [facility] Last Admin: 07/24/18 09:32 Dose: 40 mg Heparin Sodium (Porcine) (Heparin Vial(*)) 5,000 units SUBCUT Q8HR [facility] Last Admin: 07/24/18 06:24 Dose: 5,000 units Doxycycline Hyclate 100 mg/ (Sodium Chloride) 250 mls @ 250 mls/hr IVPB Q12H [facility] Last Admin: 07/24/18 10:19 Dose: 250 mls/hr Insulin Glargine (Lantus(*)) 20 units SUBCUT Q12H [facility] Insulin Human Lispro (Humalog*) 0 units SUBCUT Q6HR [facility]; Protocol Last Admin: 07/24/18 12:10 Dose: 5 units Lorazepam (Ativan Tab(*)) 0.5 mg PO Q8H PRN PRN Reason: ANXIETY Last Admin: 07/23/18 11:07 Dose: 0.5 mg Metoprolol Tartrate (Lopressor Tab*) 50 mg PO BID [facility] Last Admin: 07/24/18 09:32 Dose: 50 mg Metoprolol Tartrate (Lopressor Iv*) 2.5 mg IV Q6H PRN PRN Reason: BLOOD PRESSURE Last Admin: 07/22/18 21:50 Dose: 2.5 mg Omeprazole (Prilosec Cap*) 20 mg PO DAILY [facility] Last Admin: 07/24/18 09:32 Dose: 20 mg Tamsulosin HCl (Flomax Cap*) 0.4 mg PO BEDTIME [facility] Last Admin: 07/23/18 21:47 Dose: 0.4 mg Vital Signs - 8 hr 07/24/18 07/24/18 08:45 09:32 Pulse Rate 82 74 O2 Sat by Pulse 88 Oximetry Oxygen Devices in Use Now: Nasal Cannula Appearance: 63 yo M in nAD, aAOx3 Eyes: No Scleral Icterus, PERRLA Ears/Nose/Mouth/Throat: NL Teeth, Lips, Gums, Mucous Membranes Moist Neck: NL Appearance and Movements; NL JVP, Trachea Midline Respiratory: - - decreased breath sounds throughout and crackles b/l bases Cardiovascular: NL Sounds; No Murmurs; No JVD, RRR Abdominal: NL Sounds; No Tenderness; No Distention, No Hepatosplenomegaly, - - umbilical hernia present -nontender Extremities: No Clubbing, Cyanosis, - - trace R ankle edema Skin: No Nodules or Sclerosis, - - R lateral malleolus wound at 4-5 cm in diam with granulation tissue on bottom, stage 3. Left bottom of foor-lateral aspect- crater like ulcer -stage 3 at 1-2 cm in diam Neurological: Alert and Oriented x 3, NL Muscle Strength and Tone Result Diagrams: 07/24/18 05:43 07/24/18 05:43 Additional Lab and Data: ABG Abnormal Lab Results 07/21/18 07/21/18 07/22/18 17:44 21:04 00:17 ABG pH ABG pCO2 ABG pO2 ABG HCO3 ABG O2 Saturation ABG Base Excess Sodium Potassium Chloride Carbon Dioxide Anion Gap BUN Creatinine Est GFR ( Amer) Est GFR (Non-Af Amer) BUN/Creatinine Ratio Glucose POC Glucose (mg/dL) 140 H 130 H 157 H Calcium 07/22/18 07/22/18 07/22/18 05:22 05:22 11:34 ABG pH ABG pCO2 ABG pO2 ABG HCO3 ABG O2 Saturation ABG Base Excess Sodium 142 Potassium 4.6 Chloride 102 Carbon Dioxide 41 H* Anion Gap Not Reportable BUN 29 H Creatinine 1.33 H Est GFR ( Amer) 65.3 Est GFR (Non-Af Amer) 54.0 BUN/Creatinine Ratio 21.8 H Glucose 84 POC Glucose (mg/dL) 91 84 Calcium 8.8 07/22/18 07/22/18 12:22 16:35 ABG pH 7.33 L ABG pCO2 86 H* ABG pO2 59 L* ABG HCO3 38.0 H ABG O2 Saturation 92.6 L ABG Base Excess 16.9 H Sodium Potassium Chloride Carbon Dioxide Anion Gap BUN Creatinine Est GFR ( Amer) Est GFR (Non-Af Amer) BUN/Creatinine Ratio Glucose POC Glucose (mg/dL) 105 H Calcium Microbiology and Other Data: Microbiology 07/18/18 13:42 Nasal Screen MRSA (PCR) - Final Nasal Mrsa Not Detected Assess/Plan/Problems-Billing Assessment: 63 yo M with hx of HTN, COPD on 2L, DM, LUANA, obesity, CHF was hypoxemic after his concentrator broke down and presented to ED with hypoxemia and A. fib with RVR(new). chronic leg wounds were noted. - Patient Problems (1) Hypercapnic respiratory failure Comment: C02 narcosis and hypercapnic resp failure from obesity hypoventilation syndrome poss sleep apnea copd and pulmonary hypertension Pt had refused to wear his BIPAP in the hospital C02 narcosis with co2 in the 100s with lethargy late evening Transferred to ICU treated with BIPAP 20/05 with improvement in mental status Agrees to wear BIPAP now Will need to wear it every night and as needed in the day Transferred back to floor 07/31/18. will start diamox increase resp drive (pt's bicarb level had been increasing) (2) Lethargy Comment: See above (3) Congestive heart failure Comment: Acute noted at admission. today appears hypervolemic again. russ treat with additional Lasix 40 mg IV With resultant acute hypoxemic respiratory failure. Echo shows EF 55% with diastolic dysfunction Cont home PO lasix (4) Atrial fibrillation with rapid ventricular response Comment: converted to NSR after several hours on Cardizem gtt. Unknown duration , but suspect it started occuring when pt became hypoxic. Pt never experienced CP. due to marked hematuria heparin gtt was discontinued. cont Digoxin and BB.Pt has been sinus on monitor will d/c telem (5) Osteomyelitis Comment: R ankle and left foot-likely chronic osteo. appreciate DR. Payne's consult Cont Doxy PO BID x 4 weeks, f/u with Dr. Payne's in 2 weeks MRI as outpatient/ Pt did try to get MRI on 07/24/18 but was unable to tolerate it ANASTASIYA's abnormal , but due to increased creatinine not a good candidate for CTA- to f/u as outpatient (6) ELIZA (acute kidney injury) Comment: Pt has h/o CKD 3 due to DM. Creat back to baseline. cont to monitor Baseline creat 1.8-1.9 (7) Anemia Comment: Iron studies c/w ACD in 2017 Stool guaiac neg Hb close to baseline, but fluctulating (8) Diabetes Comment: cont ISS. mild hypoglycemia noted this aM. will lower Lantus dose holding metformin (9) Elevated troponin Comment: likely demand ischemia (10) HTN (hypertension) Comment: Holding home Losartan .cont metoprolol 50 bid (11) Hematuria Comment: heparin gtt stopped. Biggs placed back in on 07/22/18 , will likely d/c in aM (12) DVT prophylaxis Comment: HSQ Status and Disposition: inpatient.
[2018-07-24] MEDS: Aspirin 81 mg CHEW TAB* 81 MG TAB.CHEW PO SCH (17:34)
[2018-07-24] MEDS: Insulin GLARGINE(*) 1 UNITS UNIT SUBCUT SCH (20:55)
[2018-07-24] MEDS: DOXYcycline CAP(*) 100 MG PO SCH (20:57)
[2018-07-24] MEDS: acetaZOLAMIDE TAB* 250 MG PO SCH (20:57)
[2018-07-24] MEDS: Tamsulosin CAP* 0.4 MG PO SCH (20:57)
[2018-07-25] MEDS: Heparin VIAL(*) 5000 UNITS/ML VIAL (FIVE THOUSAND) SUBCUT SCH ×3 (05:56→21:22)
[2018-07-25 06:30] LABS: Hematocrit 26 % (42-52); Hemoglobin 8.2 g/dl (14.0-18.0)
[2018-07-25 06:56] LABS: EGFR Non-African American 52.6 (>60)
[2018-07-25] MEDS: Insulin LISPRO* 1 UNITS UNIT SUBCUT SCH ×4 (08:03→21:21)
[2018-07-25] MEDS: DOXYcycline CAP(*) 100 MG PO SCH ×2 (08:08→21:22)
[2018-07-25] MEDS: Digoxin TAB* 0.125 MG PO SCH (08:08)
[2018-07-25] MEDS: acetaZOLAMIDE TAB* 250 MG PO SCH ×2 (08:08→21:22)
[2018-07-25] MEDS: Furosemide TAB* 40 MG PO SCH (08:08)
[2018-07-25] MEDS: Metoprolol Tartrate TAB* 50 mg PO SCH ×2 (08:08→21:22)
[2018-07-25] MEDS: Insulin GLARGINE(*) 1 UNITS UNIT SUBCUT SCH ×2 (08:09→21:22)
[2018-07-25] MEDS: Omeprazole CAP* 20 MG PO SCH (08:09)
[2018-07-25] MEDS ORDERED: Lidocaine 4% GEL* 10 GM TUBE TOPICAL PRN (08:51)
--- NOTE | 2018-07-25 16:40 | PN ---
Subjective Date of Service: 07/25/18 Interval History: Patient seen today, in chair, no events all day. He is saturating 100% on 6 L nasal canula. Discussed with nursing staff to lower O2 and only maintain Saturation roughly at 88-92% +/- 2 %! To avoid high low and high saturation as it may cause CO2 retention. He used Bipap last night Past Medical History: Unchanged from Admission Objective Active Medications: Acetaminophen (Tylenol Tab*) 650 mg PO Q6H PRN PRN Reason: PAIN Last Admin: 07/18/18 15:12 Dose: 650 mg Acetazolamide (Diamox Tab*) 250 mg PO BID [facility] Last Admin: 07/25/18 08:08 Dose: 250 mg Albuterol/Ipratropium (Duoneb (Albuterol 2.5 Mg/Ipratropium 0.5 Mg)) 1 neb INH Q4H PRN PRN Reason: SOB/WHEEZING Aspirin (Aspirin 81 Mg Chew Tab*) 81 mg PO QPM [facility] Last Admin: 07/24/18 17:34 Dose: 81 mg Dextrose (D50w Syringe 50 Ml*) 12.5 gm IV PUSH .FOR FS < 60 - SS PRN PRN Reason: FS < 60 Last Admin: 07/20/18 11:44 Dose: 12.5 gm Digoxin (Lanoxin Tab*) 0.125 mg PO DAILY [facility] Last Admin: 07/25/18 08:08 Dose: 0.125 mg Doxycycline Hyclate (Vibramycin Cap(*)) 100 mg PO BID [facility] Last Admin: 07/25/18 08:08 Dose: 100 mg Furosemide (Lasix Tab*) 40 mg PO DAILY [facility] Last Admin: 07/25/18 08:08 Dose: 40 mg Heparin Sodium (Porcine) (Heparin Vial(*)) 5,000 units SUBCUT Q8HR [facility] Last Admin: 07/25/18 14:48 Dose: 5,000 units Insulin Glargine (Lantus(*)) 20 units SUBCUT Q12H [facility] Last Admin: 07/25/18 08:09 Dose: 20 units Insulin Human Lispro (Humalog*) 0 units SUBCUT ACHS [facility]; Protocol Last Admin: 07/25/18 13:43 Dose: Not Given Lidocaine (Topicaine 4% Gel*) 1 applic TOPICAL Q6H PRN PRN Reason: PAIN Lorazepam (Ativan Tab(*)) 0.5 mg PO Q8H PRN PRN Reason: ANXIETY Last Admin: 07/23/18 11:07 Dose: 0.5 mg Metoprolol Tartrate (Lopressor Tab*) 50 mg PO BID [facility] Last Admin: 07/25/18 08:08 Dose: 50 mg Omeprazole (Prilosec Cap*) 20 mg PO DAILY [facility] Last Admin: 07/25/18 08:09 Dose: 20 mg Tamsulosin HCl (Flomax Cap*) 0.4 mg PO BEDTIME [facility] Last Admin: 07/24/18 20:57 Dose: 0.4 mg Oxygen Devices in Use Now: Nasal Cannula Appearance: Awake, alert. no distress! Obese in the recliner. leg elevated Eyes: No Scleral Icterus, PERRLA Ears/Nose/Mouth/Throat: NL Teeth, Lips, Gums, Clear Oropharnyx Neck: NL Appearance and Movements; NL JVP, Trachea Midline, - Respiratory: - - Rales bilateral Cardiovascular: NL Sounds; No Murmurs; No JVD, - - + 2 edema Left leg Abdominal: NL Sounds; No Tenderness; No Distention Extremities: - - + 2 Edema LLE Neurological: Alert and Oriented x 3 Result Diagrams: 07/25/18 06:18 07/25/18 06:18 Additional Lab and Data: ABG Abnormal Lab Results 07/21/18 07/21/18 07/22/18 17:44 21:04 00:17 ABG pH ABG pCO2 ABG pO2 ABG HCO3 ABG O2 Saturation ABG Base Excess Sodium Potassium Chloride Carbon Dioxide Anion Gap BUN Creatinine Est GFR ( Amer) Est GFR (Non-Af Amer) BUN/Creatinine Ratio Glucose POC Glucose (mg/dL) 140 H 130 H 157 H Calcium 07/22/18 07/22/18 07/22/18 05:22 05:22 11:34 ABG pH ABG pCO2 ABG pO2 ABG HCO3 ABG O2 Saturation ABG Base Excess Sodium 142 Potassium 4.6 Chloride 102 Carbon Dioxide 41 H* Anion Gap Not Reportable BUN 29 H Creatinine 1.33 H Est GFR ( Amer) 65.3 Est GFR (Non-Af Amer) 54.0 BUN/Creatinine Ratio 21.8 H Glucose 84 POC Glucose (mg/dL) 91 84 Calcium 8.8 07/22/18 07/22/18 12:22 16:35 ABG pH 7.33 L ABG pCO2 86 H* ABG pO2 59 L* ABG HCO3 38.0 H ABG O2 Saturation 92.6 L ABG Base Excess 16.9 H Sodium Potassium Chloride Carbon Dioxide Anion Gap BUN Creatinine Est GFR ( Amer) Est GFR (Non-Af Amer) BUN/Creatinine Ratio Glucose POC Glucose (mg/dL) 105 H Calcium Microbiology and Other Data: Microbiology 07/18/18 13:42 Nasal Screen MRSA (PCR) - Final Nasal Mrsa Not Detected Assess/Plan/Problems-Billing Assessment: 63 yo M with hx of HTN, COPD on 2L, DM, LUANA, obesity, CHF was hypoxemic after his 02 concentrator broke down and presented to ED with hypoxemia and A. fib with RVR(new). chronic leg wounds were noted. - Patient Problems (1) PAD (peripheral artery disease) Current Visit: Yes Status: Acute Code(s): I73.9 - PERIPHERAL VASCULAR DISEASE, UNSPECIFIED SNOMED Code(s): 188179739 Comment: - ANASTASIYA 07/19/18 revealed 0.83 on the right and 0.64 on the left, worsening when compared to 03/13/2012 - Continue aspirin 81 mg daily and Heparin 5000 u SQ. - If and when his anemia resolve will benefit for dual antiplatelet - At this time he is high risk for any vascular interventions (2) Right ventricular cardiac abnormality Current Visit: Yes Status: Acute Code(s): Q20.8 - OTH CONGENITAL MALFORM OF CARDIAC CHAMBERS AND CONNECTIONS SNOMED Code(s): 126423585 Comment: - Echo done 07/18/18 revealed preserved left ventricular functions with EF 55% however it did demonstrate left ventricular diastollic dysfunction and the right ventricule is hypertrophied and demonstrated decrease right ventricular systollic functions, suggestive of cor Pulmonale - Will need to be carefull with overdiurising. Will benefit from aldactone, I will add aldactone 25 mg daily and will continue Diamox 250 mg bid. Follow up chemistry and HCO3- carefully. If overdiuresed will consider stopping lasix (3) Hypercapnic respiratory failure Current Visit: Yes Status: Acute Code(s): J96.92 - RESPIRATORY FAILURE, UNSPECIFIED WITH HYPERCAPNIA SNOMED Code(s): 375948805 Comment: - C02 narcosis and hypercapnic resp failure from obesity hypoventilation syndrome poss sleep apnea, copd, pulmonary hypertension and Cor pulmonale - C02 narcosis with co2 in the 100s with lethargy late evening 07/22/18, Transferred to ICU treated with BIPAP 20/05 with improvement in mental status. Agrees to wear BIPAP now (To wear it every night and as needed in the day) - I agree with starting diamox 250 mg bid to increase resp drive (pt's bicarb level had been increasing). Will add aldactone 25 mg daily. monitor BP if overdiuresed will consider stopping the lasix (4) Osteomyelitis Current Visit: Yes Status: Acute Code(s): M86.9 - OSTEOMYELITIS, UNSPECIFIED SNOMED Code(s): 75431874 Comment: - R ankle and left foot-likely chronic osteo. - Appreciate DR. Payne's consult who recommended to Cont Doxy PO BID x 4 weeks, f/u with Dr. Payne's in 2 weeks - MRI as outpatient/ Pt did try to get MRI on 07/24/18 but was unable to tolerate it ANASTASIYA's abnormal , but due to increased creatinine not a good candidate for CTA- to f/u as outpatient (5) Anemia Current Visit: No Status: Acute Code(s): D64.9 - ANEMIA, UNSPECIFIED SNOMED Code(s): 713617454 Comment: Iron studies c/w ACD in 2017 Stool guaiac neg Hb close to baseline, but fluctulating (6) Congestive heart failure Current Visit: No Status: Acute Priority: High Onset Date: 04/19/14 Code (s): I50.9 - HEART FAILURE, UNSPECIFIED SNOMED Code(s): 69897882 Comment: - Acute diastollic with EF preserved at 55% - S/p Lasix IV for the acute exacerbations - Now on po lasix. added diamox for his cor pulmonale, aldactone. Will D/C lasix if overdiuresed (7) HTN (hypertension) Current Visit: No Status: Acute Code(s): I10 - ESSENTIAL (PRIMARY) HYPERTENSION SNOMED Code(s): 12005589 Comment: Holding home Losartan .cont metoprolol 50 bid Status and Disposition: inpatient.
[2018-07-25] MEDS: Aspirin 81 mg CHEW TAB* 81 MG TAB.CHEW PO SCH (17:51)
[2018-07-25] MEDS: Tamsulosin CAP* 0.4 MG PO SCH (21:22)
[2018-07-25] MEDS: Spironolactone TAB* 25 MG PO SCH (21:22)
[2018-07-26] MEDS: Heparin VIAL(*) 5000 UNITS/ML VIAL (FIVE THOUSAND) SUBCUT SCH ×3 (05:10→21:38)
[2018-07-26 06:32] LABS: ABS Basophils 0 10^3/ul (0-0.2); ABS Eosinophils 0.1 10^3/ul (0-0.6); ABS Monocytes 0.5 10^3/ul (0-0.8); ABS Neutrophils 3.8 10^3/ul (1.5-7.7); ABS Nucleated RBC 0 10^3/ul; Eosinophil % 1.9 % (0-6); Hematocrit 25 % (42-52); Hemoglobin 7.8 g/dl (14.0-18.0); Lymphocyte % 18.4 % (25-47); Mean Corpuscular HGB Conc 32 g/dl (31-36); Mean Corpuscular Hemoglobin 25 pg (27-31); Mean Corpuscular Volume 78 fL (80-94); Mean Platelet Volume 7.8 um3 (7.4-10.4); Nucleated Red Blood Cells % 0; Platelet Count 257 10^3/ul (150-450); Red Blood Count 3.17 10^6/ul (4.00-5.40); Red Cell Distribution Width 16 % (10.5-15); White Blood Count 5.5 10^3/ul (3.5-10.8)
[2018-07-26 07:28] LABS: EGFR Non-African American 49.6 (>60)
[2018-07-26] MEDS: Insulin GLARGINE(*) 1 UNITS UNIT SUBCUT SCH ×2 (08:51→21:37)
[2018-07-26] MEDS: Furosemide TAB* 40 MG PO SCH (08:52)
[2018-07-26] MEDS: Insulin LISPRO* 1 UNITS UNIT SUBCUT SCH ×4 (08:52→21:37)
[2018-07-26] MEDS: Digoxin TAB* 0.125 MG PO SCH (08:53)
[2018-07-26] MEDS: Omeprazole CAP* 20 MG PO SCH (08:53)
[2018-07-26] MEDS: DOXYcycline CAP(*) 100 MG PO SCH ×2 (08:54→21:38)
[2018-07-26] MEDS: Metoprolol Tartrate TAB* 50 mg PO SCH ×2 (08:54→21:38)
[2018-07-26] MEDS: acetaZOLAMIDE TAB* 250 MG PO SCH ×2 (08:55→21:38)
--- NOTE | 2018-07-26 14:21 | PN ---
Subjective Date of Service: 07/26/18 Interval History: Seen in room, in chair. his oxygen requirement down to 3 liters. saturating at 97%. No events overnight. Using his bipap at night. I did call Respiratory therapist and I asked to obtain his CPAP home setting if possible and to place him on CPAP here overnight to ensure he is tolerating CPAP before discharging. At present time he has only CPAP at home and he is requiring Bipap here. I will try him on CPAP tonight to make sure he can tolerate CPAP at the rehab Past Medical History: Unchanged from Admission Objective Active Medications: Acetaminophen (Tylenol Tab*) 650 mg PO Q6H PRN PRN Reason: PAIN Last Admin: 07/18/18 15:12 Dose: 650 mg Acetazolamide (Diamox Tab*) 250 mg PO BID [facility] Last Admin: 07/26/18 08:55 Dose: 250 mg Albuterol/Ipratropium (Duoneb (Albuterol 2.5 Mg/Ipratropium 0.5 Mg)) 1 neb INH Q4H PRN PRN Reason: SOB/WHEEZING Aspirin (Aspirin 81 Mg Chew Tab*) 81 mg PO QPM [facility] Last Admin: 07/25/18 17:51 Dose: 81 mg Dextrose (D50w Syringe 50 Ml*) 12.5 gm IV PUSH .FOR FS < 60 - SS PRN PRN Reason: FS < 60 Last Admin: 07/20/18 11:44 Dose: 12.5 gm Digoxin (Lanoxin Tab*) 0.125 mg PO DAILY [facility] Last Admin: 07/26/18 08:53 Dose: 0.125 mg Doxycycline Hyclate (Vibramycin Cap(*)) 100 mg PO BID [facility] Last Admin: 07/26/18 08:54 Dose: 100 mg Furosemide (Lasix Tab*) 40 mg PO DAILY [facility] Last Admin: 07/26/18 08:52 Dose: 40 mg Heparin Sodium (Porcine) (Heparin Vial(*)) 5,000 units SUBCUT Q8HR [facility] Last Admin: 07/26/18 13:30 Dose: 5,000 units Insulin Glargine (Lantus(*)) 20 units SUBCUT Q12H [facility] Last Admin: 07/26/18 08:51 Dose: 20 units Insulin Human Lispro (Humalog*) 0 units SUBCUT [facility]; Protocol Last Admin: 07/26/18 12:38 Dose: 5 units Lidocaine (Topicaine 4% Gel*) 1 applic TOPICAL Q6H PRN PRN Reason: PAIN Last Admin: 07/25/18 20:51 Dose: 1 applic Lorazepam (Ativan Tab(*)) 0.5 mg PO Q8H PRN PRN Reason: ANXIETY Last Admin: 07/23/18 11:07 Dose: 0.5 mg Metoprolol Tartrate (Lopressor Tab*) 50 mg PO BID [facility] Last Admin: 07/26/18 08:54 Dose: 50 mg Omeprazole (Prilosec Cap*) 20 mg PO DAILY [facility] Last Admin: 07/26/18 08:53 Dose: 20 mg Spironolactone (Aldactone Tab*) 25 mg PO BEDTIME [facility] Last Admin: 07/25/18 21:22 Dose: 25 mg Tamsulosin HCl (Flomax Cap*) 0.4 mg PO BEDTIME [facility] Last Admin: 07/25/18 21:22 Dose: 0.4 mg Vital Signs - 8 hr 07/26/18 07/26/18 07/26/18 07:41 08:00 08:18 Temperature 97.4 F Pulse Rate 64 68 Respiratory 18 14 14 Rate Blood Pressure 143/61 (mmHg) O2 Sat by Pulse 96 95 Oximetry 07/26/18 07/26/18 08:53 11:27 Temperature 98.0 F Pulse Rate 88 65 Respiratory 16 Rate Blood Pressure 152/64 (mmHg) O2 Sat by Pulse 98 Oximetry Oxygen Devices in Use Now: Nasal Cannula Appearance: Awake, alert, pale. no distress. in bed and compliant with his BiPAP here in the hospital Eyes: No Scleral Icterus, PERRLA Ears/Nose/Mouth/Throat: Clear Oropharnyx, Mucous Membranes Moist Neck: NL Appearance and Movements; NL JVP, Trachea Midline Respiratory: Symmetrical Chest Expansion and Respiratory Effort, Clear to Auscultation Cardiovascular: NL Sounds; No Murmurs; No JVD, RRR, - - + Edema Abdominal: NL Sounds; No Tenderness; No Distention, - - Obese, umbilical hernia Extremities: - - + 2 edema, R lateral malleolus wound at 4-5 cm in diam with granulation tissue on bottom, stage 3. Left bottom of foor-lateral aspect- crater like ulcer -stage 3 at 1-2 cm in diam Neurological: Alert and Oriented x 3 Result Diagrams: 07/26/18 06:11 07/26/18 06:11 Additional Lab and Data: ABG Abnormal Lab Results 07/21/18 07/21/18 07/22/18 17:44 21:04 00:17 ABG pH ABG pCO2 ABG pO2 ABG HCO3 ABG O2 Saturation ABG Base Excess Sodium Potassium Chloride Carbon Dioxide Anion Gap BUN Creatinine Est GFR ( Amer) Est GFR (Non-Af Amer) BUN/Creatinine Ratio Glucose POC Glucose (mg/dL) 140 H 130 H 157 H Calcium 07/22/18 07/22/18 07/22/18 05:22 05:22 11:34 ABG pH ABG pCO2 ABG pO2 ABG HCO3 ABG O2 Saturation ABG Base Excess Sodium 142 Potassium 4.6 Chloride 102 Carbon Dioxide 41 H* Anion Gap Not Reportable BUN 29 H Creatinine 1.33 H Est GFR ( Amer) 65.3 Est GFR (Non-Af Amer) 54.0 BUN/Creatinine Ratio 21.8 H Glucose 84 POC Glucose (mg/dL) 91 84 Calcium 8.8 07/22/18 07/22/18 12:22 16:35 ABG pH 7.33 L ABG pCO2 86 H* ABG pO2 59 L* ABG HCO3 38.0 H ABG O2 Saturation 92.6 L ABG Base Excess 16.9 H Sodium Potassium Chloride Carbon Dioxide Anion Gap BUN Creatinine Est GFR ( Amer) Est GFR (Non-Af Amer) BUN/Creatinine Ratio Glucose POC Glucose (mg/dL) 105 H Calcium Microbiology and Other Data: Microbiology 07/18/18 13:42 Nasal Screen MRSA (PCR) - Final Nasal Mrsa Not Detected Assess/Plan/Problems-Billing Assessment: 63 yo M with hx of HTN, COPD on 2L, DM, LUANA, obesity, CHF was hypoxemic after his 02 concentrator broke down and presented to ED with hypoxemia and A. fib with RVR(new). chronic leg wounds were noted. - Patient Problems (1) PAD (peripheral artery disease) Current Visit: Yes Status: Acute Code(s): I73.9 - PERIPHERAL VASCULAR DISEASE, UNSPECIFIED SNOMED Code(s): 730964471 Comment: - ANASTASIYA 07/19/18 revealed 0.83 on the right and 0.64 on the left, worsening when compared to 03/13/2012 - Continue aspirin 81 mg daily and Heparin 5000 u SQ. - If and when his anemia resolve will benefit for dual antiplatelet - At this time he is high risk for any vascular interventions (2) Right ventricular cardiac abnormality Current Visit: Yes Status: Acute Code(s): Q20.8 - OTH CONGENITAL MALFORM OF CARDIAC CHAMBERS AND CONNECTIONS SNOMED Code(s): 661341044 Comment: - Echo done 07/18/18 revealed preserved left ventricular functions with EF 55% however it did demonstrate left ventricular diastollic dysfunction and the right ventricule is hypertrophied and demonstrated decrease right ventricular systollic functions, suggestive of cor Pulmonale - Will need to be carefull with overdiurising. Will benefit from aldactone, I will add aldactone 25 mg daily and will continue Diamox 250 mg bid. Follow up chemistry and HCO3- carefully. If overdiuresed will consider stopping lasix - HCO3- improved to 38. Will continue same regimen and will recheck Chem in am (3) Hypercapnic respiratory failure Current Visit: Yes Status: Acute Code(s): J96.92 - RESPIRATORY FAILURE, UNSPECIFIED WITH HYPERCAPNIA SNOMED Code(s): 066173569 Comment: - C02 narcosis and hypercapnic resp failure from obesity hypoventilation syndrome poss sleep apnea, copd, pulmonary hypertension and Cor pulmonale - C02 narcosis with co2 in the 100s with lethargy late evening 07/22/18, Transferred to ICU treated with BIPAP 20/05 with improvement in mental status. Agrees to wear BIPAP now (To wear it every night and as needed in the day) - I agree with starting diamox 250 mg bid to increase resp drive (pt's bicarb level had been increasing). Will add aldactone 25 mg daily. monitor BP if overdiuresed will consider stopping the lasix. HCO3- improved to 38. Will continue same regimen of diuretic along with diamox - I did request to do trial of CPAP before discharging him to see if he can tolerate his CPAP before returning to using his home CPAP. He is using Bipap as of last night. Respiratory were called and notified to try CPAP tonight (4) Osteomyelitis Current Visit: Yes Status: Acute Code(s): M86.9 - OSTEOMYELITIS, UNSPECIFIED SNOMED Code(s): 44026860 Comment: - R ankle and left foot-likely chronic osteo. - Appreciate DR. Payne's consult who recommended to Cont Doxy PO BID x 4 weeks, f/u with Dr. Payne's in 2 weeks. First day of abx was 07/18 IV Cefepime and now on doxy. Total days of Abx combined therapy si Day #05/28 - MRI as outpatient/ Pt did try to get MRI on 07/24/18 but was unable to tolerate it ANASTASIYA's abnormal , but due to increased creatinine not a good candidate for CTA- to f/u as outpatient (5) Anemia Current Visit: No Status: Acute Code(s): D64.9 - ANEMIA, UNSPECIFIED SNOMED Code(s): 397592281 Comment: Iron studies c/w ACD in 2017, I will repeat them today; and if iron deficient will initiate iron therapy Stool guaiac neg Hb close to baseline, but fluctulating (6) Congestive heart failure Current Visit: No Status: Acute Priority: High Onset Date: 04/19/14 Code (s): I50.9 - HEART FAILURE, UNSPECIFIED SNOMED Code(s): 95974799 Comment: - Acute diastollic with EF preserved at 55% - S/p Lasix IV for the acute exacerbations - Now on po lasix. added diamox for his cor pulmonale, aldactone. Will D/C lasix if overdiuresed (7) HTN (hypertension) Current Visit: No Status: Acute Code(s): I10 - ESSENTIAL (PRIMARY) HYPERTENSION SNOMED Code(s): 09094205 Comment: Holding home Losartan .cont metoprolol 50 bid (8) DVT prophylaxis Current Visit: No Status: Acute Code(s): PTQ8934 - SNOMED Code(s): 170535411 Comment: HSQ Status and Disposition: inpatient.
[2018-07-26] MEDS: Aspirin 81 mg CHEW TAB* 81 MG TAB.CHEW PO SCH (17:21)
[2018-07-26] MEDS: Spironolactone TAB* 25 MG PO SCH (21:38)
[2018-07-26] MEDS: Tamsulosin CAP* 0.4 MG PO SCH (21:39)
[2018-07-27] MEDS: Heparin VIAL(*) 5000 UNITS/ML VIAL (FIVE THOUSAND) SUBCUT SCH ×3 (05:27→21:39)
[2018-07-27 05:54] LABS: ABS Basophils 0 10^3/ul (0-0.2); ABS Eosinophils 0.1 10^3/ul (0-0.6); ABS Lymphocytes 1.1 10^3/ul (1.0-4.8); ABS Monocytes 0.6 10^3/ul (0-0.8); ABS Neutrophils 3.3 10^3/ul (1.5-7.7); ABS Nucleated RBC 0 10^3/ul; Eosinophil % 1.8 % (0-6); Hematocrit 25 % (42-52); Hemoglobin 7.5 g/dl (14.0-18.0); Lymphocyte % 21.6 % (25-47); Mean Corpuscular HGB Conc 30 g/dl (31-36); Mean Corpuscular Hemoglobin 24 pg (27-31); Mean Corpuscular Volume 79 fL (80-94); Mean Platelet Volume 7.7 um3 (7.4-10.4); Nucleated Red Blood Cells % 0.1; Platelet Count 224 10^3/ul (150-450); Red Blood Count 3.16 10^6/ul (4.00-5.40); Red Cell Distribution Width 16 % (10.5-15); White Blood Count 5.2 10^3/ul (3.5-10.8)
[2018-07-27 06:12] LABS: EGFR Non-African American 46.3 (>60)
[2018-07-27] MEDS: Insulin LISPRO* 1 UNITS UNIT SUBCUT SCH ×4 (09:03→21:38)
[2018-07-27] MEDS: Insulin GLARGINE(*) 1 UNITS UNIT SUBCUT SCH ×2 (09:04→21:37)
[2018-07-27] MEDS: DOXYcycline CAP(*) 100 MG PO SCH ×2 (09:06→17:28)
[2018-07-27] MEDS: Furosemide TAB* 40 MG PO SCH (09:06)
[2018-07-27] MEDS: Metoprolol Tartrate TAB* 50 mg PO SCH ×2 (09:06→21:39)
[2018-07-27] MEDS: Digoxin TAB* 0.125 MG PO SCH (09:06)
[2018-07-27] MEDS: Omeprazole CAP* 20 MG PO SCH (09:07)
[2018-07-27] MEDS: acetaZOLAMIDE TAB* 250 MG PO SCH ×2 (09:10→21:39)
[2018-07-27] MEDS ORDERED: NS 0.9% 1000 ML* 1,000 ML IV SCH (15:30)
--- NOTE | 2018-07-27 16:46 | PN ---
Subjective Date of Service: 07/27/18 Interval History: Patient seen today, he was placed on CPAP last night. He feels more tired today , did not sleep well. He did not tolerate the CPAP well, I did speak with pulmonary and saw the patient. She did recommend that the patient will need to placed back on Bipap. I did call respiratory and informed them to revert him back to Bipap for tonight and will need to arrange Bipap for rehab Past Medical History: Unchanged from Admission Objective Active Medications: Acetaminophen (Tylenol Tab*) 650 mg PO Q6H PRN PRN Reason: PAIN Last Admin: 07/18/18 15:12 Dose: 650 mg Acetazolamide (Diamox Tab*) 250 mg PO BID [facility] Last Admin: 07/27/18 09:10 Dose: 250 mg Albuterol/Ipratropium (Duoneb (Albuterol 2.5 Mg/Ipratropium 0.5 Mg)) 1 neb INH Q4H PRN PRN Reason: SOB/WHEEZING Aspirin (Aspirin 81 Mg Chew Tab*) 81 mg PO QPM [facility] Last Admin: 07/26/18 17:21 Dose: 81 mg Dextrose (D50w Syringe 50 Ml*) 12.5 gm IV PUSH .FOR FS < 60 - SS PRN PRN Reason: FS < 60 Last Admin: 07/20/18 11:44 Dose: 12.5 gm Digoxin (Lanoxin Tab*) 0.125 mg PO DAILY [facility] Last Admin: 07/27/18 09:06 Dose: 0.125 mg Doxycycline Hyclate (Vibramycin Cap(*)) 100 mg PO BID [facility] Last Admin: 07/27/18 09:06 Dose: 100 mg Furosemide (Lasix Tab*) 40 mg PO DAILY [facility] Last Admin: 07/27/18 09:06 Dose: 40 mg Heparin Sodium (Porcine) (Heparin Vial(*)) 5,000 units SUBCUT Q8HR [facility] Last Admin: 07/27/18 14:44 Dose: 5,000 units Insulin Glargine (Lantus(*)) 20 units SUBCUT Q12H [facility] Last Admin: 07/27/18 09:04 Dose: 20 units Insulin Human Lispro (Humalog*) 0 units SUBCUT ACHS [facility]; Protocol Last Admin: 07/27/18 12:18 Dose: 7 units Lidocaine (Topicaine 4% Gel*) 1 applic TOPICAL Q6H PRN PRN Reason: PAIN Last Admin: 07/25/18 20:51 Dose: 1 applic Lorazepam (Ativan Tab(*)) 0.5 mg PO Q8H PRN PRN Reason: ANXIETY Last Admin: 07/23/18 11:07 Dose: 0.5 mg Metoprolol Tartrate (Lopressor Tab*) 50 mg PO BID [facility] Last Admin: 07/27/18 09:06 Dose: 50 mg Omeprazole (Prilosec Cap*) 20 mg PO DAILY [facility] Last Admin: 07/27/18 09:07 Dose: 20 mg Spironolactone (Aldactone Tab*) 25 mg PO BEDTIME [facility] Last Admin: 07/26/18 21:38 Dose: 25 mg Tamsulosin HCl (Flomax Cap*) 0.4 mg PO BEDTIME [facility] Last Admin: 07/26/18 21:39 Dose: 0.4 mg Vital Signs - 8 hr 07/27/18 07/27/18 09:06 15:14 Temperature 98.4 F Pulse Rate 65 62 Respiratory 16 Rate Blood Pressure 129/52 (mmHg) O2 Sat by Pulse 94 Oximetry Oxygen Devices in Use Now: Nasal Cannula Appearance: Awake, drowsy but does wake up and respond to verbal stimuli. follows command. not in any acute distress Eyes: No Scleral Icterus, PERRLA Ears/Nose/Mouth/Throat: NL Teeth, Lips, Gums, Mucous Membranes Moist Neck: NL Appearance and Movements; NL JVP, Trachea Midline Respiratory: Symmetrical Chest Expansion and Respiratory Effort, Clear to Auscultation Cardiovascular: NL Sounds; No Murmurs; No JVD, RRR, No Edema Abdominal: NL Sounds; No Tenderness; No Distention Extremities: - - Edema Result Diagrams: 07/27/18 05:33 07/27/18 05:33 Additional Lab and Data: ABG Abnormal Lab Results 07/21/18 07/21/18 07/22/18 17:44 21:04 00:17 ABG pH ABG pCO2 ABG pO2 ABG HCO3 ABG O2 Saturation ABG Base Excess Sodium Potassium Chloride Carbon Dioxide Anion Gap BUN Creatinine Est GFR ( Amer) Est GFR (Non-Af Amer) BUN/Creatinine Ratio Glucose POC Glucose (mg/dL) 140 H 130 H 157 H Calcium 07/22/18 07/22/18 07/22/18 05:22 05:22 11:34 ABG pH ABG pCO2 ABG pO2 ABG HCO3 ABG O2 Saturation ABG Base Excess Sodium 142 Potassium 4.6 Chloride 102 Carbon Dioxide 41 H* Anion Gap Not Reportable BUN 29 H Creatinine 1.33 H Est GFR ( Amer) 65.3 Est GFR (Non-Af Amer) 54.0 BUN/Creatinine Ratio 21.8 H Glucose 84 POC Glucose (mg/dL) 91 84 Calcium 8.8 07/22/18 07/22/18 12:22 16:35 ABG pH 7.33 L ABG pCO2 86 H* ABG pO2 59 L* ABG HCO3 38.0 H ABG O2 Saturation 92.6 L ABG Base Excess 16.9 H Sodium Potassium Chloride Carbon Dioxide Anion Gap BUN Creatinine Est GFR ( Amer) Est GFR (Non-Af Amer) BUN/Creatinine Ratio Glucose POC Glucose (mg/dL) 105 H Calcium Microbiology and Other Data: Microbiology 07/18/18 13:42 Nasal Screen MRSA (PCR) - Final Nasal Mrsa Not Detected Assess/Plan/Problems-Billing Assessment: 63 yo M with hx of HTN, COPD on 2L, DM, LUANA, obesity, CHF was hypoxemic after his 02 concentrator broke down and presented to ED with hypoxemia and A. fib with RVR(new). chronic leg wounds were noted. - Patient Problems (1) PAD (peripheral artery disease) Current Visit: Yes Status: Acute Code(s): I73.9 - PERIPHERAL VASCULAR DISEASE, UNSPECIFIED SNOMED Code(s): 613122279 Comment: - ANASTASIYA 07/19/18 revealed 0.83 on the right and 0.64 on the left, worsening when compared to 03/13/2012 - Continue aspirin 81 mg daily and Heparin 5000 u SQ. - If and when his anemia resolve will benefit for dual antiplatelet - At this time he is high risk for any vascular interventions (2) Right ventricular cardiac abnormality Current Visit: Yes Status: Acute Code(s): Q20.8 - OTH CONGENITAL MALFORM OF CARDIAC CHAMBERS AND CONNECTIONS SNOMED Code(s): 973616306 Comment: - Echo done 07/18/18 revealed preserved left ventricular functions with EF 55% however it did demonstrate left ventricular diastollic dysfunction and the right ventricule is hypertrophied and demonstrated decrease right ventricular systollic functions, suggestive of cor Pulmonale - Will need to be carefull with overdiurising. Will benefit from aldactone, I did add aldactone 25 mg daily and will continue Diamox 250 mg bid. Follow up chemistry and HCO3- carefully. If overdiuresed will consider stopping lasix - HCO3- improved but still 38. Will continue same regimen and will recheck Chem in am if it does not improve I may cut back on lasix (3) Hypercapnic respiratory failure Current Visit: Yes Status: Acute Code(s): J96.92 - RESPIRATORY FAILURE, UNSPECIFIED WITH HYPERCAPNIA SNOMED Code(s): 358032499 Comment: - C02 narcosis and hypercapnic resp failure from obesity hypoventilation syndrome poss sleep apnea, copd, pulmonary hypertension and Cor pulmonale - C02 narcosis with co2 in the 100s with lethargy late evening 07/22/18, Transferred to ICU treated with BIPAP 20/05 with improvement in mental status. Agrees to wear BIPAP now (To wear it every night and as needed in the day) - I agree with diamox 250 mg bid to increase resp drive (pt's bicarb level had been increasing). I did add aldactone 25 mg daily. monitor BP if overdiuresed will consider stopping the lasix. HCO3- improved to 38 but still 38. Will continue same regimen of diuretic along with diamox if HCO3- does not improve will possibly decrease or stop his lasix - I did request to do trial of CPAP last night 07/26/18. Today he seem to have difficulty tolerating and more drowsy. I discussed the case with pulmonary and saw the patient. She recommended placing back on bipap and will need to set up outpatient bipap to go with him to rehab. (4) Osteomyelitis Current Visit: Yes Status: Acute Code(s): M86.9 - OSTEOMYELITIS, UNSPECIFIED SNOMED Code(s): 45834951 Comment: - R ankle and left foot-likely chronic osteo. - Appreciate DR. Payne's consult who recommended to Cont Doxy PO BID x 4 weeks, f/u with Dr. Payne's in 2 weeks. First day of abx was 07/18 IV Cefepime and now on doxy. Total days of Abx combined therapy si Day #06/28 - MRI as outpatient/ Pt did try to get MRI on 07/24/18 but was unable to tolerate it ANASTASIYA's abnormal , but due to increased creatinine not a good candidate for CTA- to f/u as outpatient (5) Anemia Current Visit: No Status: Acute Code(s): D64.9 - ANEMIA, UNSPECIFIED SNOMED Code(s): 074938975 Comment: Iron studies suggestive of iron deficient (Iron sat 7%; Iron level 23) and low normal B12 Stool guaiac neg Will start iron therapy and B12 po supplement (6) Congestive heart failure Current Visit: No Status: Acute Priority: High Onset Date: 04/19/14 Code (s): I50.9 - HEART FAILURE, UNSPECIFIED SNOMED Code(s): 49569426 Comment: - Acute diastollic with EF preserved at 55% - S/p Lasix IV for the acute exacerbations - Now on po lasix. added diamox for his cor pulmonale, aldactone. Will D/C lasix if overdiuresed (7) HTN (hypertension) Current Visit: No Status: Acute Code(s): I10 - ESSENTIAL (PRIMARY) HYPERTENSION SNOMED Code(s): 84466648 Comment: Holding home Losartan .cont metoprolol 50 bid (8) DVT prophylaxis Current Visit: No Status: Acute Code(s): CHG0156 - SNOMED Code(s): 910059274 Comment: HSQ Status and Disposition: inpatient.
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
[2018-07-27] MEDS: Cyanocobalamin TAB* 500 MCG PO SCH (17:25)
[2018-07-27] MEDS: Aspirin 81 mg CHEW TAB* 81 MG TAB.CHEW PO SCH (17:25)
[2018-07-27] MEDS: Spironolactone TAB* 25 MG PO SCH (21:39)
[2018-07-27] MEDS: Ferrous Sulfate TAB* 325 MG PO SCH (21:39)
[2018-07-27] MEDS: Tamsulosin CAP* 0.4 MG PO SCH (21:39)
[2018-07-28 05:38] LABS: ABS Basophils 0 10^3/ul (0-0.2); ABS Eosinophils 0.1 10^3/ul (0-0.6); ABS Lymphocytes 1.1 10^3/ul (1.0-4.8); ABS Monocytes 0.5 10^3/ul (0-0.8); ABS Neutrophils 3.8 10^3/ul (1.5-7.7); ABS Nucleated RBC 0 10^3/ul; Eosinophil % 1.8 % (0-6); Hematocrit 25 % (42-52); Hemoglobin 7.4 g/dl (14.0-18.0); Lymphocyte % 19.5 % (25-47); Mean Corpuscular HGB Conc 30 g/dl (31-36); Mean Corpuscular Hemoglobin 24 pg (27-31); Mean Corpuscular Volume 79 fL (80-94); Mean Platelet Volume 7.7 um3 (7.4-10.4); Nucleated Red Blood Cells % 0.1; Platelet Count 217 10^3/ul (150-450); Red Blood Count 3.13 10^6/ul (4.00-5.40); Red Cell Distribution Width 16 % (10.5-15); White Blood Count 5.6 10^3/ul (3.5-10.8)
[2018-07-28] MEDS: DOXYcycline CAP(*) 100 MG PO SCH ×2 (05:43→18:16)
[2018-07-28] MEDS: Heparin VIAL(*) 5000 UNITS/ML VIAL (FIVE THOUSAND) SUBCUT SCH ×3 (05:44→21:54)
[2018-07-28 05:56] LABS: EGFR Non-African American 46.6 (>60)
[2018-07-28] MEDS: Insulin LISPRO* 1 UNITS UNIT SUBCUT SCH ×4 (09:00→21:52)
[2018-07-28] MEDS: Insulin GLARGINE(*) 1 UNITS UNIT SUBCUT SCH ×2 (09:01→18:17)
[2018-07-28] MEDS: acetaZOLAMIDE TAB* 250 MG PO SCH ×2 (09:03→22:02)
[2018-07-28] MEDS: Cyanocobalamin TAB* 500 MCG PO SCH (09:03)
[2018-07-28] MEDS: Metoprolol Tartrate TAB* 50 mg PO SCH ×2 (09:03→21:50)
[2018-07-28] MEDS: Ferrous Sulfate TAB* 325 MG PO SCH ×3 (09:03→21:50)
[2018-07-28] MEDS: Omeprazole CAP* 20 MG PO SCH (09:03)
[2018-07-28] MEDS: Digoxin TAB* 0.125 MG PO SCH (09:03)
[2018-07-28] MEDS: Furosemide TAB* 20 MG PO SCH (09:03)
--- NOTE | 2018-07-28 16:48 | PN ---
Subjective Date of Service: 07/28/18 Interval History: Patient seen doing well, no acute events. He was placed back on the bipap last night 20/03! slept better and he was using it prn during the day. NO acute issue by staff reported to me. tolerating po well. zamora catheter out and voiding well Past Medical History: Unchanged from Admission Objective Active Medications: Acetaminophen (Tylenol Tab*) 650 mg PO Q6H PRN PRN Reason: PAIN Last Admin: 07/18/18 15:12 Dose: 650 mg Acetazolamide (Diamox Tab*) 250 mg PO BID [facility] Last Admin: 07/28/18 09:03 Dose: 250 mg Albuterol/Ipratropium (Duoneb (Albuterol 2.5 Mg/Ipratropium 0.5 Mg)) 1 neb INH Q4H PRN PRN Reason: SOB/WHEEZING Aspirin (Aspirin 81 Mg Chew Tab*) 81 mg PO QPM [facility] Last Admin: 07/27/18 17:25 Dose: 81 mg Cyanocobalamin (Vitamin B12 Tab*) 1,000 mcg PO DAILY [facility] Last Admin: 07/28/18 09:03 Dose: 1,000 mcg Dextrose (D50w Syringe 50 Ml*) 12.5 gm IV PUSH .FOR FS < 60 - SS PRN PRN Reason: FS < 60 Last Admin: 07/20/18 11:44 Dose: 12.5 gm Digoxin (Lanoxin Tab*) 0.125 mg PO DAILY [facility] Last Admin: 07/28/18 09:03 Dose: 0.125 mg Doxycycline Hyclate (Vibramycin Cap(*)) 100 mg PO BID@0600,1800 [facility] Last Admin: 07/28/18 05:43 Dose: 100 mg Ferrous Sulfate (Ferrous Sulfate Tab*) 325 mg PO TID [facility] Last Admin: 07/28/18 09:03 Dose: 325 mg Furosemide (Lasix Tab*) 20 mg PO DAILY [facility] Last Admin: 07/28/18 09:03 Dose: 20 mg Heparin Sodium (Porcine) (Heparin Vial(*)) 5,000 units SUBCUT Q8HR [facility] Last Admin: 07/28/18 05:44 Dose: 5,000 units Insulin Glargine (Lantus(*)) 20 units SUBCUT Q12H [facility] Last Admin: 07/28/18 09:01 Dose: 20 units Insulin Human Lispro (Humalog*) 0 units SUBCUT ACHS [facility]; Protocol Last Admin: 07/28/18 12:43 Dose: 7 units Lidocaine (Topicaine 4% Gel*) 1 applic TOPICAL Q6H PRN PRN Reason: PAIN Last Admin: 07/25/18 20:51 Dose: 1 applic Lorazepam (Ativan Tab(*)) 0.5 mg PO Q8H PRN PRN Reason: ANXIETY Last Admin: 07/23/18 11:07 Dose: 0.5 mg Metoprolol Tartrate (Lopressor Tab*) 50 mg PO BID [facility] Last Admin: 07/28/18 09:03 Dose: 50 mg Omeprazole (Prilosec Cap*) 20 mg PO DAILY [facility] Last Admin: 07/28/18 09:03 Dose: 20 mg Spironolactone (Aldactone Tab*) 25 mg PO BEDTIME [facility] Last Admin: 07/27/18 21:39 Dose: 25 mg Tamsulosin HCl (Flomax Cap*) 0.4 mg PO BEDTIME [facility] Last Admin: 07/27/18 21:39 Dose: 0.4 mg Vital Signs - 8 hr 07/28/18 09:03 Pulse Rate 68 Oxygen Devices in Use Now: Nasal Cannula Appearance: Awake, alert. no acute distress Eyes: No Scleral Icterus, PERRLA Ears/Nose/Mouth/Throat: NL Teeth, Lips, Gums, Clear Oropharnyx, Mucous Membranes Moist Neck: NL Appearance and Movements; NL JVP, Trachea Midline Respiratory: Symmetrical Chest Expansion and Respiratory Effort, Clear to Auscultation Cardiovascular: NL Sounds; No Murmurs; No JVD, - - + edema Abdominal: NL Sounds; No Tenderness; No Distention Neurological: Alert and Oriented x 3 Result Diagrams: 07/28/18 05:22 07/28/18 05:22 Additional Lab and Data: ABG Abnormal Lab Results 07/21/18 07/21/18 07/22/18 17:44 21:04 00:17 ABG pH ABG pCO2 ABG pO2 ABG HCO3 ABG O2 Saturation ABG Base Excess Sodium Potassium Chloride Carbon Dioxide Anion Gap BUN Creatinine Est GFR ( Amer) Est GFR (Non-Af Amer) BUN/Creatinine Ratio Glucose POC Glucose (mg/dL) 140 H 130 H 157 H Calcium 07/22/18 07/22/18 07/22/18 05:22 05:22 11:34 ABG pH ABG pCO2 ABG pO2 ABG HCO3 ABG O2 Saturation ABG Base Excess Sodium 142 Potassium 4.6 Chloride 102 Carbon Dioxide 41 H* Anion Gap Not Reportable BUN 29 H Creatinine 1.33 H Est GFR ( Amer) 65.3 Est GFR (Non-Af Amer) 54.0 BUN/Creatinine Ratio 21.8 H Glucose 84 POC Glucose (mg/dL) 91 84 Calcium 8.8 07/22/18 07/22/18 12:22 16:35 ABG pH 7.33 L ABG pCO2 86 H* ABG pO2 59 L* ABG HCO3 38.0 H ABG O2 Saturation 92.6 L ABG Base Excess 16.9 H Sodium Potassium Chloride Carbon Dioxide Anion Gap BUN Creatinine Est GFR ( Amer) Est GFR (Non-Af Amer) BUN/Creatinine Ratio Glucose POC Glucose (mg/dL) 105 H Calcium Microbiology and Other Data: Microbiology 07/18/18 13:42 Nasal Screen MRSA (PCR) - Final Nasal Mrsa Not Detected Assess/Plan/Problems-Billing Assessment: 63 yo M with hx of HTN, COPD on 2L, DM, LUANA, obesity, CHF was hypoxemic after his 02 concentrator broke down and presented to ED with hypoxemia and A. fib with RVR(new). chronic leg wounds were noted. - Patient Problems (1) PAD (peripheral artery disease) Current Visit: Yes Status: Acute Code(s): I73.9 - PERIPHERAL VASCULAR DISEASE, UNSPECIFIED SNOMED Code(s): 028607407 Comment: - ANASTASIYA 07/19/18 revealed 0.83 on the right and 0.64 on the left, worsening when compared to 03/13/2012 - Continue aspirin 81 mg daily and Heparin 5000 u SQ. - If and when his anemia resolve will benefit for dual antiplatelet - At this time he is high risk for any vascular interventions (2) Right ventricular cardiac abnormality Current Visit: Yes Status: Acute Code(s): Q20.8 - OTH CONGENITAL MALFORM OF CARDIAC CHAMBERS AND CONNECTIONS SNOMED Code(s): 122146606 Comment: - Echo done 07/18/18 revealed preserved left ventricular functions with EF 55% however it did demonstrate left ventricular diastollic dysfunction and the right ventricule is hypertrophied and demonstrated decrease right ventricular systollic functions, suggestive of cor Pulmonale - Will need to be carefull with overdiurising. Will benefit from aldactone, I did add aldactone 25 mg daily and will continue Diamox 250 mg bid. Follow up chemistry and HCO3- carefully. - HCO3- improved but still 38. I will D/c his lasix and keep him on diamox for now. Recheck ABG in am now that he has been at least more than 3 days of diamox to assess his PH and if indeed did help his decrease bicarb and indirectly helped blow off some CO2 (3) Hypercapnic respiratory failure Current Visit: Yes Status: Acute Code(s): J96.92 - RESPIRATORY FAILURE, UNSPECIFIED WITH HYPERCAPNIA SNOMED Code(s): 985153459 Comment: - C02 narcosis and hypercapnic resp failure from obesity hypoventilation syndrome poss sleep apnea, copd, pulmonary hypertension and Cor pulmonale - C02 narcosis with co2 in the 100s with lethargy late evening 07/22/18, Transferred to ICU treated with BIPAP 20/05 with improvement in mental status. Agrees to wear BIPAP now (To wear it every night and as needed in the day) - I agree with diamox 250 mg bid to increase resp drive (pt's bicarb level had been increasing). I did add aldactone 25 mg daily. HCO3- improved to 38 but still 38. I will stop his lasix today 07/28/18 - I did request to do trial of CPAP last night 07/26/18. he did not tolerate. I discussed the case with pulmonary and saw the patient. She recommended placing back on bipap and will need to set up outpatient bipap to go with him to rehab. (4) Osteomyelitis Current Visit: Yes Status: Acute Code(s): M86.9 - OSTEOMYELITIS, UNSPECIFIED SNOMED Code(s): 89578801 Comment: - R ankle and left foot-likely chronic osteo. - Appreciate DR. Payne's consult who recommended to Cont Doxy PO BID x 4 weeks, f/u with Dr. Payne's in 2 weeks. First day of abx was 07/18 IV Cefepime and now on doxy. Total days of Abx combined therapy si Day #07/28 - MRI as outpatient/ Pt did try to get MRI on 07/24/18 but was unable to tolerate it ANASTASIYA's abnormal , but due to increased creatinine not a good candidate for CTA- to f/u as outpatient (5) Anemia Current Visit: No Status: Acute Code(s): D64.9 - ANEMIA, UNSPECIFIED SNOMED Code(s): 960339011 Comment: Iron studies suggestive of iron deficient (Iron sat 7%; Iron level 23) and low normal B12 Stool guaiac neg I did start iron therapy and B12 po supplement 07/27/18 (6) Congestive heart failure Current Visit: No Status: Acute Priority: High Onset Date: 04/19/14 Code (s): I50.9 - HEART FAILURE, UNSPECIFIED SNOMED Code(s): 50410525 Comment: - Acute diastollic with EF preserved at 55% - S/p Lasix IV for the acute exacerbations - Added diamox for his cor pulmonale, aldactone. I did D/C lasix (7) HTN (hypertension) Current Visit: No Status: Acute Code(s): I10 - ESSENTIAL (PRIMARY) HYPERTENSION SNOMED Code(s): 72169566 Comment: Holding home Losartan .cont metoprolol 50 bid (8) DVT prophylaxis Current Visit: No Status: Acute Code(s): FED8713 - SNOMED Code(s): 823026984 Comment: HSQ Status and Disposition: inpatient.
[2018-07-28] MEDS: Aspirin 81 mg CHEW TAB* 81 MG TAB.CHEW PO SCH (18:16)
[2018-07-28] MEDS: Spironolactone TAB* 25 MG PO SCH (21:50)
[2018-07-28] MEDS: Tamsulosin CAP* 0.4 MG PO SCH (21:50)
[2018-07-29] MEDS: DOXYcycline CAP(*) 100 MG PO SCH ×2 (05:50→17:41)
[2018-07-29] MEDS: Insulin GLARGINE(*) 1 UNITS UNIT SUBCUT SCH ×2 (05:51→17:41)
[2018-07-29] MEDS: Heparin VIAL(*) 5000 UNITS/ML VIAL (FIVE THOUSAND) SUBCUT SCH ×3 (05:52→21:51)
[2018-07-29] MEDS: Insulin LISPRO* 1 UNITS UNIT SUBCUT SCH ×4 (08:49→21:50)
[2018-07-29] MEDS: Furosemide TAB* 20 MG PO SCH (08:51)
[2018-07-29] MEDS: Omeprazole CAP* 20 MG PO SCH (08:51)
[2018-07-29] MEDS: Digoxin TAB* 0.125 MG PO SCH (08:52)
[2018-07-29] MEDS: acetaZOLAMIDE TAB* 250 MG PO SCH ×2 (08:52→21:48)
[2018-07-29] MEDS: Ferrous Sulfate TAB* 325 MG PO SCH ×3 (08:52→21:48)
[2018-07-29] MEDS: Metoprolol Tartrate TAB* 50 mg PO SCH ×2 (08:53→21:48)
[2018-07-29] MEDS: Cyanocobalamin TAB* 500 MCG PO SCH (08:54)
[2018-07-29 11:45] LABS: ABS Basophils 0 10^3/ul (0-0.2); ABS Eosinophils 0.1 10^3/ul (0-0.6); ABS Lymphocytes 1.3 10^3/ul (1.0-4.8); ABS Monocytes 0.6 10^3/ul (0-0.8); ABS Neutrophils 4.8 10^3/ul (1.5-7.7); ABS Nucleated RBC 0 10^3/ul; Eosinophil % 1.3 % (0-6); Hematocrit 26 % (42-52); Hemoglobin 7.7 g/dl (14.0-18.0); Lymphocyte % 19.2 % (25-47); Mean Corpuscular HGB Conc 30 g/dl (31-36); Mean Corpuscular Hemoglobin 23 pg (27-31); Mean Corpuscular Volume 78 fL (80-94); Mean Platelet Volume 7.9 um3 (7.4-10.4); Nucleated Red Blood Cells % 0.1; Platelet Count 245 10^3/ul (150-450); Red Blood Count 3.31 10^6/ul (4.00-5.40); Red Cell Distribution Width 16 % (10.5-15); White Blood Count 6.8 10^3/ul (3.5-10.8)
--- NOTE | 2018-07-29 14:37 | PN ---
Subjective Date of Service: 07/29/18 Interval History: Patient seen today; He was complaining not feel good. He could not elaborate. He was just complaining being weak. Labs stat ordered for today and actually improved compared to previous labs. Hct stable. electrolytes improved and ABG resolved and improved PaCo2 and HCO3-. Bipap requested and will plan to arrange bipap for outpatient. Past Medical History: Unchanged from Admission Objective Active Medications: Acetaminophen (Tylenol Tab*) 650 mg PO Q6H PRN PRN Reason: PAIN Last Admin: 07/18/18 15:12 Dose: 650 mg Acetazolamide (Diamox Tab*) 250 mg PO BID [facility] Stop: 07/29/18 23:59 Last Admin: 07/29/18 08:52 Dose: 250 mg Albuterol/Ipratropium (Duoneb (Albuterol 2.5 Mg/Ipratropium 0.5 Mg)) 1 neb INH Q4H PRN PRN Reason: SOB/WHEEZING Aspirin (Aspirin 81 Mg Chew Tab*) 81 mg PO QPM [facility] Last Admin: 07/28/18 18:16 Dose: 81 mg Cyanocobalamin (Vitamin B12 Tab*) 1,000 mcg PO DAILY [facility] Last Admin: 07/29/18 08:54 Dose: 1,000 mcg Dextrose (D50w Syringe 50 Ml*) 12.5 gm IV PUSH .FOR FS < 60 - SS PRN PRN Reason: FS < 60 Last Admin: 07/20/18 11:44 Dose: 12.5 gm Digoxin (Lanoxin Tab*) 0.125 mg PO DAILY [facility] Last Admin: 07/29/18 08:52 Dose: 0.125 mg Doxycycline Hyclate (Vibramycin Cap(*)) 100 mg PO BID@0600,1800 [facility] Last Admin: 07/29/18 05:50 Dose: 100 mg Ferrous Sulfate (Ferrous Sulfate Tab*) 325 mg PO TID [facility] Last Admin: 07/29/18 13:45 Dose: 325 mg Furosemide (Lasix Tab*) 20 mg PO DAILY [facility] Last Admin: 07/29/18 08:51 Dose: 20 mg Heparin Sodium (Porcine) (Heparin Vial(*)) 5,000 units SUBCUT Q8HR [facility] Last Admin: 07/29/18 13:46 Dose: 5,000 units Insulin Glargine (Lantus(*)) 26 units SUBCUT Q12H [facility] Last Admin: 07/29/18 05:51 Dose: 26 units Insulin Human Lispro (Humalog*) 0 units SUBCUT ACHS [facility], [facility]; Protocol Last Admin: 07/29/18 12:44 Dose: 5 units Lidocaine (Topicaine 4% Gel*) 1 applic TOPICAL Q6H PRN PRN Reason: PAIN Last Admin: 07/25/18 20:51 Dose: 1 applic Lorazepam (Ativan Tab(*)) 0.5 mg PO Q8H PRN PRN Reason: ANXIETY Last Admin: 07/23/18 11:07 Dose: 0.5 mg Metoprolol Tartrate (Lopressor Tab*) 50 mg PO BID [facility] Last Admin: 07/29/18 08:53 Dose: 50 mg Omeprazole (Prilosec Cap*) 20 mg PO DAILY [facility] Last Admin: 07/29/18 08:51 Dose: 20 mg Spironolactone (Aldactone Tab*) 25 mg PO BEDTIME [facility] Last Admin: 07/28/18 21:50 Dose: 25 mg Tamsulosin HCl (Flomax Cap*) 0.4 mg PO BEDTIME [facility] Last Admin: 07/28/18 21:50 Dose: 0.4 mg Vital Signs - 8 hr 07/29/18 07/29/18 07/29/18 08:00 08:29 08:52 Temperature 98.3 F Pulse Rate 67 68 Respiratory 20 16 Rate Blood Pressure 155/59 (mmHg) O2 Sat by Pulse 97 Oximetry 07/29/18 13:06 Temperature 97.6 F Pulse Rate 62 Respiratory 18 Rate Blood Pressure 138/54 (mmHg) O2 Sat by Pulse 96 Oximetry Oxygen Devices in Use Now: Nasal Cannula, BiPAP Appearance: asleep, he was aroused. respond to questions. on nasal canula 2 liter during the day saturation 98%. I requested to decrease to 1.5 liter Eyes: No Scleral Icterus, PERRLA Ears/Nose/Mouth/Throat: NL Teeth, Lips, Gums, Mucous Membranes Moist Neck: NL Appearance and Movements; NL JVP, Trachea Midline Respiratory: Symmetrical Chest Expansion and Respiratory Effort, Clear to Auscultation Cardiovascular: NL Sounds; No Murmurs; No JVD, - - + 2 edema Abdominal: NL Sounds; No Tenderness; No Distention, - - Obese, Umbilical hernia Extremities: - - + 2 edma Neurological: Alert and Oriented x 3 Result Diagrams: 07/29/18 11:23 07/29/18 11:23 Additional Lab and Data: ABG Abnormal Lab Results 07/21/18 07/21/18 07/22/18 17:44 21:04 00:17 ABG pH ABG pCO2 ABG pO2 ABG HCO3 ABG O2 Saturation ABG Base Excess Sodium Potassium Chloride Carbon Dioxide Anion Gap BUN Creatinine Est GFR ( Amer) Est GFR (Non-Af Amer) BUN/Creatinine Ratio Glucose POC Glucose (mg/dL) 140 H 130 H 157 H Calcium 07/22/18 07/22/18 07/22/18 05:22 05:22 11:34 ABG pH ABG pCO2 ABG pO2 ABG HCO3 ABG O2 Saturation ABG Base Excess Sodium 142 Potassium 4.6 Chloride 102 Carbon Dioxide 41 H* Anion Gap Not Reportable BUN 29 H Creatinine 1.33 H Est GFR ( Amer) 65.3 Est GFR (Non-Af Amer) 54.0 BUN/Creatinine Ratio 21.8 H Glucose 84 POC Glucose (mg/dL) 91 84 Calcium 8.8 07/22/18 07/22/18 12:22 16:35 ABG pH 7.33 L ABG pCO2 86 H* ABG pO2 59 L* ABG HCO3 38.0 H ABG O2 Saturation 92.6 L ABG Base Excess 16.9 H Sodium Potassium Chloride Carbon Dioxide Anion Gap BUN Creatinine Est GFR ( Amer) Est GFR (Non-Af Amer) BUN/Creatinine Ratio Glucose POC Glucose (mg/dL) 105 H Calcium Microbiology and Other Data: Microbiology 07/18/18 13:42 Nasal Screen MRSA (PCR) - Final Nasal Mrsa Not Detected Assess/Plan/Problems-Billing Assessment: 63 yo M with hx of HTN, COPD on 2L, DM, LUANA, obesity, CHF was hypoxemic after his 02 concentrator broke down and presented to ED with hypoxemia and A. fib with RVR(new). chronic leg wounds were noted. - Patient Problems (1) PAD (peripheral artery disease) Current Visit: Yes Status: Acute Code(s): I73.9 - PERIPHERAL VASCULAR DISEASE, UNSPECIFIED SNOMED Code(s): 577225546 Comment: - ANASTASIYA 07/19/18 revealed 0.83 on the right and 0.64 on the left, worsening when compared to 03/13/2012 - Continue aspirin 81 mg daily and Heparin 5000 u SQ. - If and when his anemia resolve will benefit for dual antiplatelet - At this time he is high risk for any vascular interventions (2) Right ventricular cardiac abnormality Current Visit: Yes Status: Acute Code(s): Q20.8 - OTH CONGENITAL MALFORM OF CARDIAC CHAMBERS AND CONNECTIONS SNOMED Code(s): 332655252 Comment: - Echo done 07/18/18 revealed preserved left ventricular functions with EF 55% however it did demonstrate left ventricular diastollic dysfunction and the right ventricule is hypertrophied and demonstrated decrease right ventricular systollic functions, suggestive of cor Pulmonale - Will need to be carefull with overdiurising. Will benefit from aldactone, I did add aldactone 25 mg daily and will continue Diamox 250 mg bid. Follow up chemistry and HCO3- carefully. - HCO3- improved down to 36. I did D/c his lasix and kept him on diamox for now. Rechecked ABG since he was placed on Diamox for at least 3 days and his ABG showed: (PH - 7.38/65/66/34/93%) compared to previously ABG (7.41/78/64/41.9/93.9)! I will d/c today his Diamox and will place him on Bipap and Lasix PO. He may require diamox periodically and will defer to his pulmonary outpatient with Dr Salazar (3) Hypercapnic respiratory failure Current Visit: Yes Status: Acute Code(s): J96.92 - RESPIRATORY FAILURE, UNSPECIFIED WITH HYPERCAPNIA SNOMED Code(s): 622674947 Comment: - Echo done 07/18/18 revealed preserved left ventricular functions with EF 55% however it did demonstrate left ventricular diastollic dysfunction and the right ventricule is hypertrophied and demonstrated decrease right ventricular systollic functions, suggestive of cor Pulmonale - Will need to be carefull with overdiurising. Will benefit from aldactone, I did add aldactone 25 mg daily and will continue Diamox 250 mg bid. Follow up chemistry and HCO3- carefully. - HCO3- improved down to 36. I did D/c his lasix and kept him on diamox for now. Rechecked ABG since he was placed on Diamox for at least 3 days and his ABG showed: (PH - 7.38/65/66/34/93%) compared to previously ABG (7.41/78/64/41.9/93.9)! I will d/c today his Diamox and will place him on Bipap and Lasix PO. He may require diamox periodically and will defer to his pulmonary outpatient with Dr Salazar (4) Osteomyelitis Current Visit: Yes Status: Acute Code(s): M86.9 - OSTEOMYELITIS, UNSPECIFIED SNOMED Code(s): 38978256 Comment: - R ankle and left foot-likely chronic osteo. - Appreciate DR. Payne's consult who recommended to Cont Doxy PO BID x 4 weeks, f/u with Dr. Payne's in 2 weeks. First day of abx was 07/18 IV Cefepime and now on doxy. Total days of Abx combined therapy si Day #08/28 - MRI as outpatient/ Pt did try to get MRI on 07/24/18 but was unable to tolerate it ANASTASIYA's abnormal , but due to increased creatinine not a good candidate for CTA- to f/u as outpatient (5) Anemia Current Visit: No Status: Acute Code(s): D64.9 - ANEMIA, UNSPECIFIED SNOMED Code(s): 918844980 Comment: Iron studies suggestive of iron deficient (Iron sat 7%; Iron level 23) and low normal B12 Stool guaiac neg I did start iron therapy and B12 po supplement 07/27/18 (6) Congestive heart failure Current Visit: No Status: Acute Priority: High Onset Date: 04/19/14 Code (s): I50.9 - HEART FAILURE, UNSPECIFIED SNOMED Code(s): 34318539 Comment: - Acute diastollic with EF preserved at 55% - S/p Lasix IV for the acute exacerbations - Added diamox for his cor pulmonale, aldactone. I did D/C lasix - Now that his PH and HCO3- improving I will d/c diamox today 07/29/18 and will resume po lasix. If HCO3 worsens again we may need to resume diamox probably few days a week. (7) HTN (hypertension) Current Visit: No Status: Acute Code(s): I10 - ESSENTIAL (PRIMARY) HYPERTENSION SNOMED Code(s): 98104330 Comment: Holding home Losartan .cont metoprolol 50 bid (8) DVT prophylaxis Current Visit: No Status: Acute Code(s): DFR3689 - SNOMED Code(s): 251128821 Comment: HSQ Status and Disposition: inpatient. To rehab [facility] once Bipap available Follow up with Dr Salazar pulmonary as outpatient Follow up with ID Dr. Samina drummond
[2018-07-29] MEDS: Aspirin 81 mg CHEW TAB* 81 MG TAB.CHEW PO SCH (17:41)
[2018-07-29] MEDS: Tamsulosin CAP* 0.4 MG PO SCH (21:48)
[2018-07-29] MEDS: Spironolactone TAB* 25 MG PO SCH (21:49)
[2018-07-29] MEDS: LORazepam TAB(*) 0.5 MG PO PRN (21:59)
[2018-07-30] MEDS: Insulin GLARGINE(*) 1 UNITS UNIT SUBCUT SCH ×2 (05:14→18:16)
[2018-07-30] MEDS: Heparin VIAL(*) 5000 UNITS/ML VIAL (FIVE THOUSAND) SUBCUT SCH ×3 (05:55→21:59)
[2018-07-30] MEDS: DOXYcycline CAP(*) 100 MG PO SCH ×2 (06:08→18:16)
[2018-07-30 06:20] LABS: ABS Basophils 0 10^3/ul (0-0.2); ABS Eosinophils 0.1 10^3/ul (0-0.6); ABS Lymphocytes 1.2 10^3/ul (1.0-4.8); ABS Monocytes 0.6 10^3/ul (0-0.8); ABS Nucleated RBC 0 10^3/ul; Eosinophil % 1.5 % (0-6); Hematocrit 25 % (42-52); Hemoglobin 7.6 g/dl (14.0-18.0); Mean Corpuscular HGB Conc 31 g/dl (31-36); Mean Corpuscular Hemoglobin 25 pg (27-31); Mean Corpuscular Volume 79 fL (80-94); Mean Platelet Volume 7.5 um3 (7.4-10.4); Nucleated Red Blood Cells % 0; Platelet Count 228 10^3/ul (150-450); Red Blood Count 3.13 10^6/ul (4.00-5.40); Red Cell Distribution Width 16 % (10.5-15); White Blood Count 5.9 10^3/ul (3.5-10.8)
[2018-07-30 06:31] LABS: EGFR Non-African American 51.7 (>60)
[2018-07-30] MEDS: Insulin LISPRO* 1 UNITS UNIT SUBCUT SCH ×4 (08:59→21:17)
[2018-07-30] MEDS: Metoprolol Tartrate TAB* 50 mg PO SCH ×2 (09:00→21:16)
[2018-07-30] MEDS: Omeprazole CAP* 20 MG PO SCH (09:01)
[2018-07-30] MEDS: LORazepam TAB(*) 0.5 MG PO PRN ×2 (09:01→21:17)
[2018-07-30] MEDS: Furosemide TAB* 40 MG PO SCH (09:02)
[2018-07-30] MEDS: Cyanocobalamin TAB* 500 MCG PO SCH (09:02)
[2018-07-30] MEDS: Digoxin TAB* 0.125 MG PO SCH (09:02)
[2018-07-30] MEDS: Ferrous Sulfate TAB* 325 MG PO SCH ×3 (09:03→21:17)
--- NOTE | 2018-07-30 14:58 | PN ---
Subjective Date of Service: 07/30/18 Interval History: He is initially asleep but easilty arousable. He denies chest pain, SOB or pain. He relays no concerns and has no questions. He does not seem to like the food. Past Medical History: Unchanged from Admission Objective Active Medications: Acetaminophen (Tylenol Tab*) 650 mg PO Q6H PRN PRN Reason: PAIN Last Admin: 07/18/18 15:12 Dose: 650 mg Albuterol/Ipratropium (Duoneb (Albuterol 2.5 Mg/Ipratropium 0.5 Mg)) 1 neb INH Q4H PRN PRN Reason: SOB/WHEEZING Aspirin (Aspirin 81 Mg Chew Tab*) 81 mg PO QPM [facility] Last Admin: 07/29/18 17:41 Dose: 81 mg Cyanocobalamin (Vitamin B12 Tab*) 1,000 mcg PO DAILY [facility] Last Admin: 07/30/18 09:02 Dose: 1,000 mcg Dextrose (D50w Syringe 50 Ml*) 12.5 gm IV PUSH .FOR FS < 60 - SS PRN PRN Reason: FS < 60 Last Admin: 07/20/18 11:44 Dose: 12.5 gm Digoxin (Lanoxin Tab*) 0.125 mg PO DAILY [facility] Last Admin: 07/30/18 09:02 Dose: 0.125 mg Doxycycline Hyclate (Vibramycin Cap(*)) 100 mg PO BID@0600,1800 [facility] Last Admin: 07/30/18 06:08 Dose: 100 mg Ferrous Sulfate (Ferrous Sulfate Tab*) 325 mg PO TID [facility] Last Admin: 07/30/18 13:38 Dose: 325 mg Furosemide (Lasix Tab*) 40 mg PO DAILY [facility] Last Admin: 07/30/18 09:02 Dose: 40 mg Heparin Sodium (Porcine) (Heparin Vial(*)) 5,000 units SUBCUT Q8HR [facility] Last Admin: 07/30/18 13:40 Dose: 5,000 units Insulin Glargine (Lantus(*)) 26 units SUBCUT Q12H [facility] Last Admin: 07/30/18 05:14 Dose: 26 units Insulin Human Lispro (Humalog*) 0 units SUBCUT ACHS [facility]; Protocol Last Admin: 07/30/18 13:39 Dose: 5 units Lidocaine (Topicaine 4% Gel*) 1 applic TOPICAL Q6H PRN PRN Reason: PAIN Last Admin: 07/25/18 20:51 Dose: 1 applic Lorazepam (Ativan Tab(*)) 0.5 mg PO Q8H PRN PRN Reason: ANXIETY Metoprolol Tartrate (Lopressor Tab*) 50 mg PO BID [facility] Last Admin: 07/30/18 09:00 Dose: 50 mg Omeprazole (Prilosec Cap*) 20 mg PO DAILY [facility] Last Admin: 07/30/18 09:01 Dose: 20 mg Spironolactone (Aldactone Tab*) 25 mg PO BEDTIME [facility] Last Admin: 07/29/18 21:49 Dose: 25 mg Tamsulosin HCl (Flomax Cap*) 0.4 mg PO BEDTIME [facility] Last Admin: 07/29/18 21:48 Dose: 0.4 mg Vital Signs - 8 hr 07/30/18 07/30/18 07/30/18 07:35 08:00 08:37 Temperature 97.5 F Pulse Rate 60 64 Respiratory 22 20 14 Rate Blood Pressure 151/61 (mmHg) O2 Sat by Pulse 100 94 Oximetry 07/30/18 07/30/18 07/30/18 09:01 09:02 11:01 Temperature Pulse Rate 62 Respiratory 18 18 Rate Blood Pressure (mmHg) O2 Sat by Pulse Oximetry Oxygen Devices in Use Now: Nasal Cannula Appearance: NAD, initially asleep. On Bipap Eyes: No Scleral Icterus, PERRLA Respiratory: - - anteriorly clear to auscultation w/o rhonchi. Cardiovascular: NL Sounds; No Murmurs; No JVD, RRR Abdominal: NL Sounds; No Tenderness; No Distention, No Hepatosplenomegaly, - - obese Extremities: No Edema Neurological: Alert and Oriented x 3 Result Diagrams: 07/30/18 06:05 07/30/18 06:05 Additional Lab and Data: Laboratory Results - last 24 hr 07/30/18 07/30/18 07/30/18 06:05 06:05 08:15 WBC 5.9 RBC 3.13 L Hgb 7.6 L Hct 25 L MCV 79 L MCH 25 L MCHC 31 RDW 16 H Plt Count 228 MPV 7.5 Neut % (Auto) 68.8 Lymph % (Auto) 20.0 L [place] % (Auto) 9.4 H Eos % (Auto) 1.5 Baso % (Auto) 0.3 Absolute Neuts (auto) 4.0 Absolute Lymphs (auto) 1.2 Absolute Monos (auto) 0.6 Absolute Eos (auto) 0.1 Absolute Basos (auto) 0 Absolute Nucleated RBC 0 Nucleated RBC % 0 Sodium 141 Potassium 3.9 Chloride 102 Carbon Dioxide 35 H Anion Gap 4 BUN 22 Creatinine 1.38 H Est GFR ( Amer) 62.6 Est GFR (Non-Af Amer) 51.7 BUN/Creatinine Ratio 15.9 Glucose 148 H POC Glucose (mg/dL) 149 H Calcium 8.9 07/30/18 07/30/18 07/30/18 11:59 17:31 20:38 WBC RBC Hgb Hct MCV MCH MCHC RDW Plt Count MPV Neut % (Auto) Lymph % (Auto) [place] % (Auto) Eos % (Auto) Baso % (Auto) Absolute Neuts (auto) Absolute Lymphs (auto) Absolute Monos (auto) Absolute Eos (auto) Absolute Basos (auto) Absolute Nucleated RBC Nucleated RBC % Sodium Potassium Chloride Carbon Dioxide Anion Gap BUN Creatinine Est GFR ( Amer) Est GFR (Non-Af Amer) BUN/Creatinine Ratio Glucose POC Glucose (mg/dL) 183 H 201 H 234 H Calcium Microbiology and Other Data: Microbiology 07/18/18 10:38 Blood Venous Aerobic Blood Culture - Final No Growth Day 5 07/18/18 10:38 Blood Venous Anaerobic Blood Culture - Final No Growth Day 5 07/18/18 10:12 Blood Venous Aerobic Blood Culture - Final No Growth Day 5 07/18/18 10:12 Blood Venous Anaerobic Blood Culture - Final No Growth Day 5 07/21/18 14:50 Stool Stool Occult Blood (CÉSAR) - Final 07/18/18 12:57 Urine Urine Culture - Final No Growth (<1,000 CFU/mL) 07/18/18 13:42 Nasal Nasal Screen MRSA (PCR) - Final Mrsa Not Detected Assess/Plan/Problems-Billing Assessment: 63 yo male PMH HTN, COPD on 2L, DM, LUANA, obesity, CHF was hypoxemic after his oxygen concentrator broke down and presented to ED with hypoxemia and A. fib with RVR(new). Chronic leg wounds on right ankle and left foot. On doxycyline. Planned [facility] 07/31 once Bipap available. - Patient Problems (1) Hypercapnic respiratory failure Current Visit: Yes Status: Acute Code(s): J96.92 - RESPIRATORY FAILURE, UNSPECIFIED WITH HYPERCAPNIA SNOMED Code(s): 247743078 Comment: - Echo 07/18/18 EF 55% and left ventricular diastolic dysfunction and the right ventricule is hypertrophied and demonstrated decrease right ventricular systollic functions, suggestive of cor Pulmonale - obesity hypoventilation syndrome and COPD with chronic 2L O2 requirement at home - aldactone 25 mg daily - Bipap - appreciate pulm recs. - lasix PO. (2) Osteomyelitis Current Visit: Yes Status: Acute Code(s): M86.9 - OSTEOMYELITIS, UNSPECIFIED SNOMED Code(s): 78032235 Comment: - R ankle and left foot-likely chronic osteo. - Appreciate DR. Payne's consult who recommended to Cont Doxy PO BID x 4 weeks, f/u with Dr. Payne's in 2 weeks. First day of abx was 07/18 IV Cefepime and now on doxy. Total days of Abx combined therapy is Day #12 - MRI as outpatient/ Pt did try to get MRI on 07/24/18 but was unable to tolerate it ANASTASIYA's abnormal , but due to increased creatinine not a good candidate for CTA- to f/u as outpatient (3) PAD (peripheral artery disease) Current Visit: Yes Status: Acute Code(s): I73.9 - PERIPHERAL VASCULAR DISEASE, UNSPECIFIED SNOMED Code(s): 282351361 Comment: - ANASTASIYA 07/19/18 revealed 0.83 on the right and 0.64 on the left, worsening when compared to 03/13/2012 - Continue aspirin 81 mg daily and Heparin 5000 u SQ. - If and when his anemia resolve will benefit for dual antiplatelet - At this time he is high risk for any vascular interventions (4) Right ventricular cardiac abnormality Current Visit: Yes Status: Acute Code(s): Q20.8 - OTH CONGENITAL MALFORM OF CARDIAC CHAMBERS AND CONNECTIONS SNOMED Code(s): 901773724 Comment: - Echo done 07/18/18 revealed preserved left ventricular functions with EF 55% however it did demonstrate left ventricular diastollic dysfunction and the right ventricule is hypertrophied and demonstrated decrease right ventricular systollic functions, suggestive of cor Pulmonale (5) Anemia Current Visit: No Status: Acute Code(s): D64.9 - ANEMIA, UNSPECIFIED SNOMED Code(s): 095386914 Comment: Iron studies suggestive of iron deficient (Iron sat 7%; Iron level 23) and low normal B12 Stool guaiac neg started iron therapy and B12 po supplement 07/27/18 ?colonoscopy in past (6) Congestive heart failure Current Visit: No Status: Acute Priority: High Onset Date: 04/19/14 Code (s): I50.9 - HEART FAILURE, UNSPECIFIED SNOMED Code(s): 60601144 Comment: - Acute diastolic with EF preserved at 55% - S/p Lasix IV for the acute exacerbations aldactone lasix 40mg po daily If HCO3 worsens again we may need to resume diamox probably few days a week. (7) DVT prophylaxis Current Visit: No Status: Acute Code(s): SAN2852 - SNOMED Code(s): 995433481 Comment: HSQ (8) HTN (hypertension) Current Visit: No Status: Acute Code(s): I10 - ESSENTIAL (PRIMARY) HYPERTENSION SNOMED Code(s): 39360509 Comment: Holding home Losartan .cont metoprolol 50 bid Status and Disposition: inpatient. To rehab [facility] once Bipap available Follow up with Dr Salazar pulmonary as outpatient Follow up with [facility] outpatient Attending: Misael Rodriguez
--- NOTE | 2018-07-30 18:11 | PN ---
Progress Note - Progress Note Date of Service: 07/30/18 - Pulm f/u note Note: Pt seen and examined at bedside. Pt in recliner. Reports being tired. Has poor appetite. Denies SOb, denies nay other issues Active Medications Generic Name Dose Route Start Last Admin Trade Name Freq PRN Reason Stop Dose Admin Acetaminophen 650 mg 07/18/18 12:34 07/18/18 15:12 Tylenol Tab* PO 650 mg Q6H PRN Administration PAIN Albuterol/Ipratropium 1 neb 07/18/18 13:00 Duoneb (Albuterol 2.5 Mg/Ipratropium 0.5 Mg) INH Q4H PRN SOB/WHEEZING Aspirin 81 mg 07/18/18 18:00 07/29/18 17:41 Aspirin 81 Mg Chew Tab* PO 81 mg QPM [facility] Administration Cyanocobalamin 1,000 mcg 07/27/18 17:00 07/30/18 09:02 Vitamin B12 Tab* PO 1,000 mcg DAILY [facility] Administration Dextrose 12.5 gm 07/18/18 12:48 07/20/18 11:44 D50w Syringe 50 Ml* IV PUSH 12.5 gm .FOR FS < 60 - SS PRN Administration FS < 60 Digoxin 0.125 mg 07/19/18 09:00 07/30/18 09:02 Lanoxin Tab* PO 0.125 mg DAILY [facility] Administration Doxycycline Hyclate 100 mg 07/27/18 18:00 07/30/18 06:08 Vibramycin Cap(*) PO 100 mg BID@0600,1800 [facility] Administration Ferrous Sulfate 325 mg 07/27/18 21:00 07/30/18 13:38 Ferrous Sulfate Tab* PO 325 mg TID [facility] Administration Furosemide 40 mg 07/30/18 09:00 07/30/18 09:02 Lasix Tab* PO 40 mg DAILY [facility] Administration Heparin Sodium (Porcine) 5,000 units 07/20/18 06:00 07/30/18 13:40 Heparin Vial(*) SUBCUT 5,000 units Q8HR [facility] Administration Insulin Glargine 26 units 07/28/18 16:56 07/30/18 05:14 Lantus(*) SUBCUT 26 units Q12H [facility] Administration Insulin Human Lispro 0 units 07/25/18 07:30 07/30/18 13:39 Humalog* SUBCUT 5 units ACHS [facility] Administration Protocol Lidocaine 1 applic 07/25/18 08:51 07/25/18 20:51 Topicaine 4% Gel* TOPICAL 1 applic Q6H PRN Administration PAIN Lorazepam 0.5 mg 07/30/18 11:56 Ativan Tab(*) PO Q8H PRN ANXIETY Metoprolol Tartrate 50 mg 07/18/18 21:00 07/30/18 09:00 Lopressor Tab* PO 50 mg BID [facility] Administration Omeprazole 20 mg 07/19/18 09:00 07/30/18 09:01 Prilosec Cap* PO 20 mg DAILY [facility] Administration Spironolactone 25 mg 07/25/18 21:00 07/29/18 21:49 Aldactone Tab* PO 25 mg BEDTIME [facility] Administration Tamsulosin HCl 0.4 mg 07/18/18 21:00 07/29/18 21:48 Flomax Cap* PO 0.4 mg BEDTIME [facility] Administration Vital Signs Temp Pulse Resp BP Pulse Ox 97.9 F 63 16 130/51 93 07/30/18 11:20 07/30/18 11:20 07/30/18 11:20 07/30/18 11:20 07/30/18 11:20 O/E: Pt in NAD HEENT: PERRLA, no JVD Lungs: Distnat breath sounds, no wheeze CVS: S1, S2+ aBD: oBESE, bs+ Skin: No rash Neuro: Alert, awake, no focal defecits Laboratory Results - last 24 hr 07/29/18 07/30/18 07/30/18 20:13 06:05 06:05 WBC 5.9 RBC 3.13 L Hgb 7.6 L Hct 25 L MCV 79 L MCH 25 L MCHC 31 RDW 16 H Plt Count 228 MPV 7.5 Neut % (Auto) 68.8 Lymph % (Auto) 20.0 L [place] % (Auto) 9.4 H Eos % (Auto) 1.5 Baso % (Auto) 0.3 Absolute Neuts (auto) 4.0 Absolute Lymphs (auto) 1.2 Absolute Monos (auto) 0.6 Absolute Eos (auto) 0.1 Absolute Basos (auto) 0 Absolute Nucleated RBC 0 Nucleated RBC % 0 Sodium 141 Potassium 3.9 Chloride 102 Carbon Dioxide 35 H Anion Gap 4 BUN 22 Creatinine 1.38 H Est GFR ( Amer) 62.6 Est GFR (Non-Af Amer) 51.7 BUN/Creatinine Ratio 15.9 Glucose 148 H POC Glucose (mg/dL) 220 H Calcium 8.9 07/30/18 07/30/18 08:15 11:59 WBC RBC Hgb Hct MCV MCH MCHC RDW Plt Count MPV Neut % (Auto) Lymph % (Auto) [place] % (Auto) Eos % (Auto) Baso % (Auto) Absolute Neuts (auto) Absolute Lymphs (auto) Absolute Monos (auto) Absolute Eos (auto) Absolute Basos (auto) Absolute Nucleated RBC Nucleated RBC % Sodium Potassium Chloride Carbon Dioxide Anion Gap BUN Creatinine Est GFR ( Amer) Est GFR (Non-Af Amer) BUN/Creatinine Ratio Glucose POC Glucose (mg/dL) 149 H 183 H Calcium I/R: 63 yo M with hx of HTN, COPD on 2L, DM, LUANA/OHS, morbid obesity, CHF was hypoxemic after his concentrator broke down and presented to ED with hypoxemia and new onset A. fib with RVR. Pt improved with BiPAP He would benefit from BiPAP given OHS He is stable on current O2 levels at 2L He is not in acute COPD exacerbation He is complaint with BiPAP D/c planning to subacute rehab with arrangements for BiPAP
[2018-07-30] MEDS: Aspirin 81 mg CHEW TAB* 81 MG TAB.CHEW PO SCH (18:16)
[2018-07-30] MEDS: Spironolactone TAB* 25 MG PO SCH (21:16)
[2018-07-30] MEDS: Tamsulosin CAP* 0.4 MG PO SCH (21:17)
[2018-07-30] MEDS: Collagenase 250 MG/GM OINT* 30 GM TOPICAL SCH (22:00)
[2018-07-30] MEDS: Neomycin/Polym/Bacit TOP OINT* 15 GM TOPICAL SCH (22:00)
[2018-07-31] MEDS: DOXYcycline CAP(*) 100 MG PO SCH ×2 (05:35→20:26)
[2018-07-31] MEDS: Heparin VIAL(*) 5000 UNITS/ML VIAL (FIVE THOUSAND) SUBCUT SCH ×3 (05:35→21:37)
[2018-07-31] MEDS: Insulin GLARGINE(*) 1 UNITS UNIT SUBCUT SCH ×2 (05:36→20:34)
[2018-07-31] MEDS: Omeprazole CAP* 20 MG PO SCH (08:29)
[2018-07-31] MEDS: Insulin LISPRO* 1 UNITS UNIT SUBCUT SCH ×4 (09:09→20:34)
[2018-07-31] MEDS: Furosemide TAB* 40 MG PO SCH (09:12)
[2018-07-31] MEDS: Cyanocobalamin TAB* 500 MCG PO SCH (09:12)
[2018-07-31] MEDS: LORazepam TAB(*) 0.5 MG PO PRN (09:13)
[2018-07-31] MEDS: Digoxin TAB* 0.125 MG PO SCH (09:14)
[2018-07-31] MEDS: Ferrous Sulfate TAB* 325 MG PO SCH ×3 (09:15→20:26)
[2018-07-31] MEDS: Metoprolol Tartrate TAB* 50 mg PO SCH ×2 (09:15→20:27)
[2018-07-31] MEDS: Collagenase 250 MG/GM OINT* 30 GM TOPICAL SCH (09:20)
[2018-07-31] MEDS: Neomycin/Polym/Bacit TOP OINT* 15 GM TOPICAL SCH (09:21)
--- NOTE | 2018-07-31 16:24 | PN ---
Subjective Date of Service: 07/31/18 Interval History: Very concerned that we have still not found his oximeter as it cost him 2 months of savings. Interested in finding out about Bipap mask cleaning machines. Concerned that he won't be able to apply bipap mask at home without additional practise. Feels SOB. no pain in feet/ankle - never does. Neuropathic. Slept well on Bipap. Has no scale at home. uses wheelchair and for short duration walker. Living at [facility]. Past Medical History: Unchanged from Admission Objective Active Medications: Acetaminophen (Tylenol Tab*) 650 mg PO Q6H PRN PRN Reason: PAIN Last Admin: 07/18/18 15:12 Dose: 650 mg Albuterol/Ipratropium (Duoneb (Albuterol 2.5 Mg/Ipratropium 0.5 Mg)) 1 neb INH Q4H PRN PRN Reason: SOB/WHEEZING Aspirin (Aspirin 81 Mg Chew Tab*) 81 mg PO QPM [facility] Last Admin: 07/30/18 18:16 Dose: 81 mg Collagenase (Santyl 250 Mg/Gm Oint*) 1 applic TOPICAL DAILY [facility] Last Admin: 07/31/18 09:20 Dose: 1 applic Cyanocobalamin (Vitamin B12 Tab*) 1,000 mcg PO DAILY [facility] Last Admin: 07/31/18 09:12 Dose: 1,000 mcg Dextrose (D50w Syringe 50 Ml*) 12.5 gm IV PUSH .FOR FS < 60 - SS PRN PRN Reason: FS < 60 Last Admin: 07/20/18 11:44 Dose: 12.5 gm Digoxin (Lanoxin Tab*) 0.125 mg PO DAILY [facility] Last Admin: 07/31/18 09:14 Dose: 0.125 mg Doxycycline Hyclate (Vibramycin Cap(*)) 100 mg PO BID@0600,1800 [facility] Last Admin: 07/31/18 05:35 Dose: 100 mg Ferrous Sulfate (Ferrous Sulfate Tab*) 325 mg PO TID [facility] Last Admin: 07/31/18 14:30 Dose: 325 mg Furosemide (Lasix Tab*) 40 mg PO DAILY [facility] Last Admin: 07/31/18 09:12 Dose: 40 mg Heparin Sodium (Porcine) (Heparin Vial(*)) 5,000 units SUBCUT Q8HR [facility] Last Admin: 07/31/18 14:31 Dose: 5,000 units Insulin Glargine (Lantus(*)) 26 units SUBCUT Q12H [facility] Last Admin: 07/31/18 05:36 Dose: 26 units Insulin Human Lispro (Humalog*) 0 units SUBCUT ACHS [facility]; Protocol Last Admin: 07/31/18 13:08 Dose: 5 units Lidocaine (Topicaine 4% Gel*) 1 applic TOPICAL Q6H PRN PRN Reason: PAIN Last Admin: 07/25/18 20:51 Dose: 1 applic Lorazepam (Ativan Tab(*)) 0.5 mg PO Q8H PRN PRN Reason: ANXIETY Last Admin: 07/31/18 09:13 Dose: 0.5 mg Metoprolol Tartrate (Lopressor Tab*) 50 mg PO BID [facility] Last Admin: 07/31/18 09:15 Dose: 50 mg Neomycin/Polymyxin/Bacitracin (Neosporin Top Oint Tube*) 1 applic TOPICAL DAILY [facility] Last Admin: 07/31/18 09:21 Dose: 1 applic Omeprazole (Prilosec Cap*) 20 mg PO DAILY [facility] Last Admin: 07/31/18 08:29 Dose: 20 mg Spironolactone (Aldactone Tab*) 25 mg PO BEDTIME [facility] Last Admin: 07/30/18 21:16 Dose: 25 mg Tamsulosin HCl (Flomax Cap*) 0.4 mg PO BEDTIME [facility] Last Admin: 07/30/18 21:17 Dose: 0.4 mg Vital Signs - 8 hr 07/31/18 07/31/18 07/31/18 09:13 09:14 11:01 Temperature 97.3 F Pulse Rate 68 67 Respiratory 20 20 Rate Blood Pressure 134/48 (mmHg) O2 Sat by Pulse 95 Oximetry 07/31/18 12:41 Temperature Pulse Rate Respiratory 18 Rate Blood Pressure (mmHg) O2 Sat by Pulse Oximetry Oxygen Devices in Use Now: Nasal Cannula Appearance: NAD Eyes: No Scleral Icterus, PERRLA Respiratory: Symmetrical Chest Expansion and Respiratory Effort, Clear to Auscultation Cardiovascular: NL Sounds; No Murmurs; No JVD, RRR Abdominal: NL Sounds; No Tenderness; No Distention, - - morbidly obese. Extremities: - - trace edema right ferris which is noticeably bigger than left. no strikethru on left plantar or right ankle bandages. Neurological: Alert and Oriented x 3 Nutrition: Taking PO's Result Diagrams: 07/30/18 06:05 07/30/18 06:05 Additional Lab and Data: Laboratory Results - last 24 hr 07/30/18 07/30/18 07/31/18 17:31 20:38 08:27 POC Glucose (mg/dL) 201 H 234 H 162 H 07/31/18 12:32 POC Glucose (mg/dL) 184 H Microbiology and Other Data: Microbiology 07/18/18 10:38 Blood Venous Aerobic Blood Culture - Final No Growth Day 5 07/18/18 10:38 Blood Venous Anaerobic Blood Culture - Final No Growth Day 5 07/18/18 10:12 Blood Venous Aerobic Blood Culture - Final No Growth Day 5 07/18/18 10:12 Blood Venous Anaerobic Blood Culture - Final No Growth Day 5 07/21/18 14:50 Stool Stool Occult Blood (CÉSAR) - Final 07/18/18 12:57 Urine Urine Culture - Final No Growth (<1,000 CFU/mL) 07/18/18 13:42 Nasal Nasal Screen MRSA (PCR) - Final Mrsa Not Detected Assess/Plan/Problems-Billing Assessment: 63 yo male PMH HTN, COPD on 2L, DM, LUANA, obesity, CHF was hypoxemic after his oxygen concentrator broke down and presented to ED with hypoxemia and A. fib with RVR(new). Chronic leg wounds on right ankle and left foot. On doxycyline. Planned [facility] 08/01 once Bipap available. - Patient Problems (1) Hypercapnic respiratory failure Current Visit: Yes Status: Acute Code(s): J96.92 - RESPIRATORY FAILURE, UNSPECIFIED WITH HYPERCAPNIA SNOMED Code(s): 586258661 Comment: - Echo 07/18/18 EF 55% and left ventricular diastolic dysfunction and the right ventricule is hypertrophied and demonstrated decrease right ventricular systollic functions, suggestive of cor Pulmonale - obesity hypoventilation syndrome and COPD with chronic 2L O2 requirement at home - aldactone 25 mg daily - Bipap at night - appreciate pulm recs. - lasix 40mg PO daily (2) Osteomyelitis Current Visit: Yes Status: Acute Code(s): M86.9 - OSTEOMYELITIS, UNSPECIFIED SNOMED Code(s): 60586247 Comment: - R ankle and left foot-likely chronic osteo. - Appreciate DR. Payne's consult who recommended to Cont Doxy PO BID x 4 weeks, f/u with Dr. Payne's in 2 weeks. First day of abx was 07/18 IV Cefepime and now on doxy. Total days of Abx combined therapy is Day #12 - MRI as outpatient/ Pt did try to get MRI on 07/24/18 but was unable to tolerate it ANASTASIYA's abnormal , but due to increased creatinine not a good candidate for CTA- to f/u as outpatient (3) PAD (peripheral artery disease) Current Visit: Yes Status: Acute Code(s): I73.9 - PERIPHERAL VASCULAR DISEASE, UNSPECIFIED SNOMED Code(s): 622938003 Comment: - ANASTASIYA 07/19/18 revealed 0.83 on the right and 0.64 on the left, worsening when compared to 03/13/2012 - Continue aspirin 81 mg daily and Heparin 5000 u SQ. - If and when his anemia resolve will benefit for dual antiplatelet - At this time he is high risk for any vascular interventions (4) Right ventricular cardiac abnormality Current Visit: Yes Status: Acute Code(s): Q20.8 - OTH CONGENITAL MALFORM OF CARDIAC CHAMBERS AND CONNECTIONS SNOMED Code(s): 090033145 Comment: - Echo done 07/18/18 revealed preserved left ventricular functions with EF 55% however it did demonstrate left ventricular diastollic dysfunction and the right ventricule is hypertrophied and demonstrated decrease right ventricular systollic functions, suggestive of cor Pulmonale (5) Anemia Current Visit: No Status: Acute Code(s): D64.9 - ANEMIA, UNSPECIFIED SNOMED Code(s): 174992238 Comment: Iron studies suggestive of iron deficient (Iron sat 7%; Iron level 23) and low normal B12 Stool guaiac neg started iron therapy and B12 po supplement 07/27/18 He has never had a colonoscopy in past - he did have a fecal occult blood ( negative) 11/28/16) and reports he had a cologuard test about 6 months ago (was never called with results) (6) Congestive heart failure Current Visit: No Status: Acute Priority: High Onset Date: 04/19/14 Code (s): I50.9 - HEART FAILURE, UNSPECIFIED SNOMED Code(s): 72974813 Comment: - Acute diastolic with EF preserved at 55% - S/p Lasix IV for the acute exacerbations aldactone lasix 40mg po daily If HCO3 worsens again we may need to resume diamox probably few days a week. (7) DVT prophylaxis Current Visit: No Status: Acute Code(s): ARW8456 - SNOMED Code(s): 334269352 Comment: HSQ (8) HTN (hypertension) Current Visit: No Status: Acute Code(s): I10 - ESSENTIAL (PRIMARY) HYPERTENSION SNOMED Code(s): 42571543 Comment: Holding home Losartan .cont metoprolol 50 bid (9) Diabetes Current Visit: No Status: Acute Code(s): E11.9 - TYPE 2 DIABETES MELLITUS WITHOUT COMPLICATIONS SNOMED Code(s): 07694909 Comment: cont 26U Lantus daily and ISS. holding metformin last A1C in medent 04/17/17 12.0%, will add on Status and Disposition: inpatient. To rehab [facility] once Bipap available Follow up with Dr Salazar pulmonary as outpatient Follow up with ID Dr. Haas outpatient
[2018-07-31] MEDS: Spironolactone TAB* 25 MG PO SCH (20:26)
[2018-07-31] MEDS: Tamsulosin CAP* 0.4 MG PO SCH (20:26)
[2018-07-31] MEDS: Aspirin 81 mg CHEW TAB* 81 MG TAB.CHEW PO SCH (20:27)
[2018-08-01] MEDS: LORazepam TAB(*) 0.5 MG PO PRN (03:02)
[2018-08-01] MEDS: DOXYcycline CAP(*) 100 MG PO SCH (05:22)
[2018-08-01] MEDS: Heparin VIAL(*) 5000 UNITS/ML VIAL (FIVE THOUSAND) SUBCUT SCH (05:22)
[2018-08-01] MEDS: Insulin GLARGINE(*) 1 UNITS UNIT SUBCUT SCH (05:23)
[2018-08-01 07:46] VITALS: BP 146/60
[2018-08-01] MEDS: Digoxin TAB* 0.125 MG PO SCH (09:39)
[2018-08-01] MEDS: Cyanocobalamin TAB* 500 MCG PO SCH (09:40)
[2018-08-01] MEDS: Omeprazole CAP* 20 MG PO SCH (09:40)
[2018-08-01] MEDS: Ferrous Sulfate TAB* 325 MG PO SCH (09:40)
[2018-08-01] MEDS: Furosemide TAB* 40 MG PO SCH (09:40)
[2018-08-01] MEDS: Metoprolol Tartrate TAB* 50 mg PO SCH (09:41)
[2018-08-01] MEDS: Insulin LISPRO* 1 UNITS UNIT SUBCUT SCH ×2 (09:41→13:28)
--- NOTE | 2018-08-01 14:13 | DS ---
DATE OF ADMISSION: 07/18/2018. DATE OF DISCHARGE: 08/01/2018. PRIMARY CARE PHYSICIAN: Dr. Yoo. ADMITTING PROVIDER: Irasema Yost NP. ATTENDING PHYSICIAN ON THE DAY OF DISCHARGE: Dr. Misael Rodriguez. CHIEF COMPLAINT: Shortness of breath. PRINCIPAL DIAGNOSIS: Atrial fibrillation with RVR; acute on chronic hypoxic respiratory failure; course complicated by lethargy secondary to acute hypercapnic respiratory failure in the setting of CO2 narcosis, now requiring nocturnal BiPAP in the setting of being noncompliant with CPAP at home; anemia with hematuria while on Heparin drip; iron deficiency. HISTORY OF PRESENT ILLNESS AND HOSPITAL COURSE: Efra Thapa is a 63-year- old male with a past medical history of obesity, hypoventilation syndrome, COPD , uncontrolled insulin dependent diabetes mellitus, osteomyelitis, anemia, moderate to severe pulmonary hypertension, chronic hypoxic respiratory failure, on home oxygen who presented with shortness of breath. Please see history and physical from Irasema Yost NP for full details. He believe that his oxygen concentrator had stopped working. He had tested that he had run out of his Lasix for approximately one week as he had trouble with routine automatic prescriptions. He denied any worsening edema or bloating. He has chronic bilateral foot wounds, never painful while in the setting of neuropathy. He was found in the emergency room to be in atrial fibrillation with rapid ventricular response between 110 to 140s. He was placed on a Heparin drip and Cardizem drip and converted to normal sinus rhythm spontaneously. On the Heparin drip, he developed hematuria and had baseline anemia, even previously with a hemoglobin of 8.8. Heparin drip was stopped. He was not started on any anticoagulation given the anemia. He was found to be iron deficient and started on iron supplementation. His iron level were iron of 23, saturation of 7 percent, ferritin of 75. He tested that he has never had a colonoscopy. He reports he had a Cologuard with Dr. Yoo about six months ago and never heard any results from that. I did not find any record of that in Dr. Yoo's outpatient notes. He did have a negative fecal occult blood back in 2017. The patient's course was complicated by hypercapnic CO2 narcosis with lethargy and required BiPAP and improved with that therapy. He is being discharged with new BiPAP machine to [facility]. Formerly he had not been complicate with his CPAP mask. He was started on Digoxin and remained in normal sinus rhythm. He was seen by Dr. Nieto for his bilateral foot wounds which he says has been chronic. He was not able to tolerate MRI. Dr. Nieto recommended Doxycycline 100 mg twice a day, a total of a four week course and follow-up in two to three weeks, and Wound Clinic follow-up. He was also evaluated by Dr. Gomez on July 19 of Orthopedics. There was concern for peripheral vascular disease. He got an ANASTASIYA on July 19 which demonstrated decreased ANASTASIYA indices of 0.83 on the right and 0.86 on the left. This was a significant change from the prior study from 03/13/2012. He should follow-up with a vascular surgeon as an outpatient. He was not considered, given his anemia, able to tolerate dual antiplatelet therapy at this time, but that should be discussed. He was strongly recommended to undergo further work- up for his anemia which should include colonoscopy and potentially urological consult given his hematuria on the Heparin drip, especially if that were to recur. Of note, he lost his pulse oximetry and was quite anxious about that. It was unable to be found during the hospitalization. He required Ativan prn for anxiety. He was continued on his Lasix 40 for his history of congestive heart failure. He was seen by Dr. Olea who recommended the BiPAP therapy for his obesity hypoventilation syndrome. He had a transthoracic echocardiogram on July 18 which demonstrated an ejection fraction of 50 to 55 percent, abnormal left ventricular diastolic function. He has basal inferolateral, basal inferior, basal inferoseptal, mid inferior, and mid inferoseptal wall segment hypokinesis (score 2). These findings were similar to November 2015 study, except he had mitral valve regurgitation that was mild and now trace. His hemoglobin on July 30, the day prior to discharge, was 7.6 microcytic and MCV of 79. His creatinine fluctuated during the hospital stay, initially 1.73, peaked at 2.15, on the day of discharge 1.38. Previous baseline seemed to be around 1.9 in 2017. His A1c was checked and it was 12.6. DISCHARGE MEDICATIONS: 1. Aspirin 81 mg daily. 2. Doxycycline 100 mg b.i.d. for 15 more days for a total of a 4 week course ( new). 3. Ferrous Sulfate 325 mg t.i.d. (new). 4. Digoxin 0.125 mg daily (new). 5. Cyanocobalamin 1,000 mcg p.o. daily (new). 6. Santyl ointment (new). 7. Lidocaine 4% gel prn (new). 8. Ativan 0.5 mg q.8 hours prn (new). 9. Metoprolol Tartrate 50 mg p.o. b.i.d. 10. Protonix 40 mg p.o. daily. 11. Tamsulosin 0.4 mg p.o. daily. 12. Duonebs inhaled q.4 hours prn (new). 13. Symbicort inhaled b.i.d. 14. Insulin Detemir 55 units subcutaneous b.i.d. 15. Tradjenta 5 mg p.o. daily. 16. Metformin 1,000 mg p.o. b.i.d. 17. Neosporin one application daily. 18. Spironolactone 25 mg p.o. at bedtime (new). His Losartan was stopped given the addition of other medications. FOLLOW-UP: He should follow-up with Dr. Ismael Yoo within four to seven days after discharge from [facility] and then providers at [facility] until then. He should see Dr. Olea within one month and Dr. Nieto within two to three weeks. He should have a Digoxin level checked on follow-up along with CBC and BMP. He now has new BiPAP and many new medications changes. TIME SPENT ON DISCHARGE: 60 minutes. [id number]/[facility] #: [id number] TITUS
== END 2018-08-01 15:10 | DRG 291 ==
LOC: ED 09:38 → ICU 12:30 → MEDTELE 07-19 10:52 → ICU 07-22 19:29 → MEDTELE 07-23 16:06
PROVIDERS: ADMIT Hospitalist; ATTEND Internal Medicine
PROC: 5A09357 Assistance with Respiratory Ventilation, Less than 24 Consecutive Hours, Continuous Positive Airway Pressure (ICD-10-PCS; principal; 2018-07-22)
DX: I13.0 Hypertensive heart and chronic kidney disease with heart failure and stage 1 through stage 4 chronic kidney disease, or unspecified chronic kidney disease (principal); J96.21 Acute and chronic respiratory failure with hypoxia; J96.22 Acute and chronic respiratory failure with hypercapnia; I50.41 Acute combined systolic (congestive) and diastolic (congestive) heart failure; E66.2 Morbid (severe) obesity with alveolar hypoventilation; N17.9 Acute kidney failure, unspecified; Z68.41 Body mass index [BMI] 40.0-44.9, adult; M86.671 Other chronic osteomyelitis, right ankle and foot; M86.672 Other chronic osteomyelitis, left ankle and foot; E87.2 Acidosis; D68.32 Hemorrhagic disorder due to extrinsic circulating anticoagulants; R31.9 Hematuria, unspecified; T45.515A Adverse effect of anticoagulants, initial encounter; Y92.239 Unspecified place in hospital as the place of occurrence of the external cause; E11.40 Type 2 diabetes mellitus with diabetic neuropathy, unspecified; J44.9 Chronic obstructive pulmonary disease, unspecified; M47.896 Other spondylosis, lumbar region; F32.9 Major depressive disorder, single episode, unspecified; I27.20 Pulmonary hypertension, unspecified; I48.91 Unspecified atrial fibrillation; E11.51 Type 2 diabetes mellitus with diabetic peripheral angiopathy without gangrene; E11.22 Type 2 diabetes mellitus with diabetic chronic kidney disease; N18.9 Chronic kidney disease, unspecified; G89.29 Other chronic pain; I27.81 Cor pulmonale (chronic); E11.69 Type 2 diabetes mellitus with other specified complication; M54.9 Dorsalgia, unspecified; I95.9 Hypotension, unspecified; I73.9 Peripheral vascular disease, unspecified; D50.9 Iron deficiency anemia, unspecified; I34.0 Nonrheumatic mitral (valve) insufficiency; L97.519 Non-pressure chronic ulcer of other part of right foot with unspecified severity; L97.529 Non-pressure chronic ulcer of other part of left foot with unspecified severity; Z98.42 Cataract extraction status, left eye; Z82.3 Family history of stroke; Z82.49 Family history of ischemic heart disease and other diseases of the circulatory system; Z88.0 Allergy status to penicillin; Z91.013 Allergy to seafood; Z99.81 Dependence on supplemental oxygen; Z83.3 Family history of diabetes mellitus; Z98.41 Cataract extraction status, right eye; Z91.14 Patient's other noncompliance with medication regimen; Z79.82 Long term (current) use of aspirin; Z79.4 Long term (current) use of insulin
CPT/HCPCS: 36415; 36600; 71045; 71046; 80048; 80053; 80162; 81003; 81015; 82272; 82550; 82553; 82607; 82728; 82746; 82803; 82947; 83036; 83540; 83550; 83605; 83735; 83880; 84100; 84484; 85014; 85018; 85025; 85610; 85730; 86140; 86850; 86900; 86901; 87040; 87086; 87641; 90686; 93005; 93306; 93922; 94660; 99285; A9270-GY; C8929; G8978-GP-CN; G8979-GP-CN; G8980-GP-CN; J0330; J0692; J1160; J1644; J1940; J3370; J3490

== ENCOUNTER 2018-10-25 15:42 | Inpatient (IN) | payer MEDICARE, MEDICAID ==
[2018-10-25 20:19] LABS: ABS Basophils 0 10^3/ul (0-0.2); ABS Eosinophils 0.7 10^3/ul (0-0.6); ABS Lymphocytes 2.3 10^3/ul (1.0-4.8); ABS Monocytes 0.5 10^3/ul (0-0.8); ABS Neutrophils 12.4 10^3/ul (1.5-7.7); ABS Nucleated RBC 0 10^3/ul; Eosinophil % 4.6 %; Hematocrit 29 % (42-52); Hemoglobin 8.4 g/dl (14.0-18.0); Lymphocyte % 14.4 %; Mean Corpuscular HGB Conc 29 g/dl (31-36); Mean Corpuscular Hemoglobin 22 pg (27-31); Mean Corpuscular Volume 75 fL (80-94); Mean Platelet Volume 7.4 fL (7.4-10.4); Nucleated Red Blood Cells % 0; Platelet Count 380 10^3/ul (150-450); Red Blood Count 3.82 10^6/ul (4.00-5.40); Red Cell Distribution Width 19 % (10.5-15)
[2018-10-25 20:32] LABS: Albumin 3.3 g/dL (3.2-5.2); Albumin/Globulin Ratio 0.7 (1-3); BUN/Creatinine Ratio 11.4 (8-20); C Reactive Protein 136.5 mg/L (<8.01); Calcium 8.4 mg/dL (8.6-10.3); EGFR African American 35.1 (>60); Globulin 4.8 g/dL (2-4); Potassium 3.8 mmol/L (3.5-5.0); Total Bilirubin 0.4 mg/dL (0.2-1.0); Total Protein 8.1 g/dL (6.4-8.9)
[2018-10-25 21:12] LABS: Erythrocyte Sed Rate 120 mm/Hr (0-40)
--- NOTE | 2018-10-25 21:26 | ED ---
Complex/Multi-Sys Presentation - HPI Summary HPI Summary: 63 year old M presenting to [facility] from wound clinic accompanied by resident marine services technician with a chief complaint of low blood pressure since today. The patient rates the pain 0/10 in severity. Symptoms aggravated by nothing. Symptoms alleviated by nothing. Patient reports recent weight loss in the past few months. He notes that over the past few weeks, he feels occasional weakness and blurry vision that are resolved after eating. Patient denies fever and chills. Patient was discharged two weeks ago from wound clinic. He notes that there is a wound on his left heel. He presented to wound clinic today for routine check up on this wound. He denies pain. - History Of Current Complaint Chief Complaint: EDGeneral Time Seen by Provider: 10/25/18 21:15 Hx Obtained From: Patient Onset/Duration: Lasting Days - 1, Still Present Timing: Constant Aggravating Factor(s): Nothing Alleviating Factor(s): Nothing Associated Signs And Symptoms: Positive: Other - recent weight loss in the past few months, occasional weakness and blurry vision that are resolved after eating, wound on left heel; NEGATIVE: fever and chills, left heel pain - Allergies/Home Medications Allergies/Adverse Reactions: Allergies Allergy/AdvReac Type Severity Reaction Status Date / Time shellfish derived Allergy Severe lips Verified 07/18/18 10:24 swell, itchy Penicillins Allergy Intermediate Rash Verified 07/18/18 10:24 PMH/Surg Hx/FS Hx/Imm Hx Previously Healthy: No Endocrine/Hematology History: Reports: Hx Diabetes, Hx Anemia - TAKING IRON Cardiovascular History: Reports: Hx Congestive Heart Failure - Systolic HF, Hx Hypertension Denies: Hx Myocardial Infarction Respiratory History: Reports: Hx Chronic Obstructive Pulmonary Disease (COPD), Hx Pulmonary Edema, Hx Sleep Apnea GI History: Reports: Hx Hiatal Hernia - 25 years, Other GI Disorders - has some small gall stones- no issues History: Denies: Hx Dialysis, Hx Renal Disease Musculoskeletal History: Reports: Hx Arthritis - mild L4-L5, Other Musculoskeletal History - osteomyalgia bilateral foot Sensory History: Reports: Hx Cataracts, Hx Contacts or Glasses Denies: Hx Legally Blind, Hx Deafness, Hx Hearing Aid Opthamlomology History: Reports: Hx Cataracts, Hx Contacts or Glasses Denies: Hx Legally Blind Neurological History: Reports: Hx Nerve Disease - bilat neuropathy Psychiatric History: Reports: Hx Depression - Surgical History Surgery Procedure, Year, and Place: dental - teeth removed - sedated, cataracts Hx Anesthesia Reactions: No - Immunization History Date of Tetanus Vaccine: Unk Date of Influenza Vaccine: None Infectious Disease History: No Infectious Disease History: Denies: Traveled Outside the [place] in Last 30 Days - Family History Known Family History: Positive: Cardiac Disease, Hypertension, Diabetes - Social History Alcohol Use: None Hx Substance Use: No Substance Use Type: Reports: None Hx Tobacco Use: No Smoking Status (MU): Never Smoked Tobacco Amount Used/How Often: only smoked 2 years - never inhaled Have You Smoked in the Last Year: No Review of Systems Positive: Other - low blood pressure. Negative: Fever, Chills Positive: Blurred Vision - occasional Positive: Other - recent weight loss Musculoskeletal: Negative - left heel pain Positive: Other - wound on left heel Positive: Weakness - occasional All Other Systems Reviewed And Are Negative: Yes Physical Exam - Summary Physical Exam Summary: Appearance: Well-appearing, Well-nourished, lying in bed comfortably Skin: The patient's left heel has an ulcer that is dry with a dime-sized area of eschar. There is erythema about the heel with some swelling but minimal tenderness Eyes: sclera anicteric, no conjunctival pallor ENT: mucous membranes moist, pharynx appears normal Neck: Supple, nontender Respiratory: Clear to auscultation, no signs of respiratory distress Cardiovascular: Normal S1, S2. No murmurs. Normal distal pulses in tibial and radial bilaterally. Abdomen: Soft, nontender, normal active bowel sounds present Musculoskeletal: Normal, Strength/ROM Intact Neurological: A&Ox3, awake and alert, mentation is normal, speech is fluent and appropriate Psychiatric: affect is normal, does not appear anxious or depressed Triage Information Reviewed: Yes Vital Signs On Initial Exam: Initial Vitals Temp Pulse Resp BP Pulse Ox 98.0 F 76 18 126/65 97 10/25/18 15:44 10/25/18 15:44 10/25/18 15:44 10/25/18 15:44 10/25/18 15:44 Vital Signs Reviewed: Yes Diagnostics - Vital Signs Vital Signs Temp Pulse Resp BP Pulse Ox 10/25/18 20:06 98.3 F 78 18 135/72 97 10/25/18 17:50 97.4 F 70 14 111/56 99 10/25/18 15:44 98.0 F 76 18 126/65 97 - Laboratory Lab Results: Lab Results 10/25/18 10/25/18 10/25/18 Range/Units 20:04 20:04 20:04 WBC 16.0 H (3.5-10.8) 10^3/ul RBC 3.82 L (4.00-5.40) 10^6/ul Hgb 8.4 L (14.0-18.0) g/dl Hct 29 L (42-52) % MCV 75 L (80-94) fL MCH 22 L (27-31) pg MCHC 29 L (31-36) g/dl RDW 19 H (10.5-15) % Plt Count 380 (150-450) 10^3/ul MPV 7.4 (7.4-10.4) fL Neut % (Auto) 77.9 % Lymph % (Auto) 14.4 % Bledsoe % (Auto) 2.8 % Eos % (Auto) 4.6 % Baso % (Auto) 0.3 % Absolute Neuts (auto) 12.4 H (1.5-7.7) 10^3/ul Absolute Lymphs (auto) 2.3 (1.0-4.8) 10^3/ul Absolute Monos (auto) 0.5 (0-0.8) 10^3/ul Absolute Eos (auto) 0.7 H (0-0.6) 10^3/ul Absolute Basos (auto) 0 (0-0.2) 10^3/ul Absolute Nucleated RBC 0 10^3/ul Nucleated RBC % 0 ESR 120 H (0-40) mm/Hr Sodium 141 (135-145) mmol/L Potassium 3.8 (3.5-5.0) mmol/L Chloride 91 L (101-111) mmol/L Carbon Dioxide 41 H* (22-32) mmol/L Anion Gap 9 (2-11) mmol/L BUN 26 H (6-24) mg/dL Creatinine 2.28 H (0.67-1.17) mg/dL Est GFR ( Amer) 35.1 (>60) Est GFR (Non-Af Amer) 29.0 (>60) BUN/Creatinine Ratio 11.4 (8-20) Glucose 94 (70-100) mg/dL Lactic Acid 4.8 H* (0.5-2.0) mmol/L Calcium 8.4 L (8.6-10.3) mg/dL Total Bilirubin 0.40 (0.2-1.0) mg/dL AST 11 L (13-39) U/L ALT 3 L (7-52) U/L Alkaline Phosphatase 58 (34-104) U/L C-Reactive Protein 136.50 H (<8.01) mg/L Total Protein 8.1 (6.4-8.9) g/dL Albumin 3.3 (3.2-5.2) g/dL Globulin 4.8 H (2-4) g/dL Albumin/Globulin Ratio 0.7 L (1-3) Result Diagrams: 11/03/18 06:29 11/04/18 05:23 Lab Statement: Any lab studies that have been ordered have been reviewed, and results considered in the medical decision making process. Complex Multi-Symp Course/Dx Course Of Treatment: 63 year old M presenting to [facility] from wound clinic accompanied by resident marine services technician with a chief complaint of hypotension since today. He notes that there is a wound on his left heel. Labwork was remarkable for CO2 41 and lactic acid 4.8. Discussed with Dr. Costa, hospitalist , who agrees to admit patient. The patient will be admitted. He is agreeable with this plan. - Diagnoses Provider Diagnoses: Osteomyelitis of foot - Physician Notifications Discussed Care Of Patient With: Chey Costa Time Discussed With Above Provider: 21:40 Instructed by Provider To: Other - Dr. Costa, hospitalist, agrees to admit patient. Discharge - Sign-Out/Discharge Documenting (check all that apply): Patient Departure - Admit Patient Received Moderate/Deep Sedation with Procedure: No - Discharge Plan Condition: Fair Disposition: ADMITTED TO [facility] - Billing Disposition and Condition Condition: FAIR Disposition: Admitted to [facility] - Attestation Statements Document Initiated by Scribe: Yes Documenting Scribe: Mariaelena Miranda Provider For Whom Scribe is Documenting (Include Credential): Dev Clement MD Scribe Attestation: Mariaelena Perea, scribed for Dev Clement MD on 11/19/18 at 1653. Scribe Documentation Reviewed: Yes Provider Attestation: The documentation as recorded by the lambertoiblori, Mariaelena Miranda accurately reflects the service I personally performed and the decisions made by me, Dev Clement MD Status of Olivia Document: Viewed
[2018-10-25] MEDS ORDERED: NS 0.9% 1000 ML** 1,000 ML IV ONE (22:10)
[2018-10-25] MEDS ORDERED: Albuterol/Ipratropium NEB.SOL* Albuterol 2.5 MG/Ipratropium 0.5 MG 3 ML INH PRN (22:11)
[2018-10-25] MEDS ORDERED: Dextrose 50% Syringe 50 ML* 25 GM/50 ML SYRINGE IV PUSH PRN (22:15)
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
[2018-10-25] MEDS ORDERED: Vancomycin(*) 1,000 MG in NS 0.9% 250 ML* 250 ML IVPB SCH (23:00)
[2018-10-26] MEDS ORDERED: Vancomycin per Pharmacy* NOTE FOLLOW UP PRN (00:41)
[2018-10-26] MEDS ORDERED: Vancomycin(*) 2,000 MG in NS 0.9% 500 ML* 500 ML IVPB ONE (01:00)
[2018-10-26] MEDS: metroNIDAZOLE IV 500 MG/100ML* 500 MG/100 ML BAG IVPB SCH ×3 (01:09→18:26)
[2018-10-26] MEDS: Aztreonam (*) 1 GM in NS 0.9% 50 ML* 50 ML IVPB SCH ×3 (02:07→17:46)
--- NOTE | 2018-10-26 02:46 | PN ---
Sepsis Event Evaluation Date of Evaluation: 10/26/18 Time of Evaluation: 02:45 Current Stage of Sepsis: Sepsis Vital Signs - Last 12 Hours: Vital Signs - 12 hr Temp Pulse Resp BP Pulse Ox 10/25/18 23:19 98 F 86 18 150/55 98 10/25/18 23:18 98.6 F 70 18 113/58 98 10/25/18 22:26 76 113/58 98 10/25/18 22:00 76 97 10/25/18 21:50 109/61 10/25/18 21:37 77 98 10/25/18 21:36 77 108/53 98 10/25/18 20:06 98.3 F 78 18 135/72 97 10/25/18 17:50 97.4 F 70 14 111/56 99 10/25/18 15:44 98.0 F 76 18 126/65 97 Lactic Acid: 10/25/18 20:04 Lactic Acid 4.8 H* - Cardiopulmonary Exam Capillary Refill: Immediate Respiratory: Symmetrical Chest Expansion and Respiratory Effort, Clear to Auscultation Cardiovascular: RRR - Peripheral Pulse Exam Radial Pulses: Bilateral Normal - Skin Exam Skin Exam: Unremarkable - poor skin turgor - Doni Coma Scale Best Eye Response: 4 - Spontaneous Best Motor Response: 6 - Obeys Commands Best Verbal Response: 5 - Oriented Coma Scale Total: 15 Assess/Plan/Problems-Billing Assessment: - Patient Problems (1) Sepsis Current Visit: Yes Status: Acute Comment: due to left foot ulcer. giving broad specturm antibiotics, IV fluid blood culture ordered. (2) Diabetic foot ulcer Current Visit: Yes Status: Acute Code(s): E11.621 - TYPE 2 DIABETES MELLITUS WITH FOOT ULCER; L97.509 - NON-PRESSURE CHRONIC ULCER OTH PRT UNSP FOOT W UNSP SEVERITY SNOMED Code(s): 699872061 Comment: diabetic foot ulcer, follwed by wound clinic. will get ESR, and CRP. start treatment with vancomycin/aztreonam/flagyl due to penicillin allergy. Check MRI check blood cultures (3) Lactic acid acidosis Current Visit: Yes Status: Acute Code(s): E87.2 - ACIDOSIS SNOMED Code(s) : 36976799 Comment: due to foot infection IV fluids hold metformin holding home diuretics: spironolactone, lasix (4) Diabetes Current Visit: No Status: Acute Code(s): E11.9 - TYPE 2 DIABETES MELLITUS WITHOUT COMPLICATIONS SNOMED Code(s): 70149626 Comment: poorly controlled. due to lactic acidosis hold metformin and linagliptin c/w home dose insulin long acting, add sliding scale insulin (5) Obesity hypoventilation syndrome Current Visit: Yes Status: Acute Code(s): E66.2 - MORBID (SEVERE) OBESITY WITH ALVEOLAR HYPOVENTILATION SNOMED Code(s): 887833826 (6) COPD exacerbation Current Visit: No Status: Acute Code(s): J44.1 - CHRONIC OBSTRUCTIVE PULMONARY DISEASE W (ACUTE) EXACERBATION SNOMED Code(s): 358512072 Comment: stable. continue home regimen chornic respiratory failure on home oxygen at 2Liters, will continue (7) Congestive heart failure Current Visit: No Status: Acute Priority: High Onset Date: 04/19/14 Code (s): I50.9 - HEART FAILURE, UNSPECIFIED SNOMED Code(s): 74910255 Comment: currently stable. requires IV fluid due to lactic acidosis and likley sepsis. (8) ELIZA (acute kidney injury) Current Visit: No Status: Acute Code(s): N17.9 - ACUTE KIDNEY FAILURE, UNSPECIFIED SNOMED Code(s): 72151426 Comment: Continue IV fluids, hold diuretics. renal adjustment of his digoxin.
[2018-10-26 03:31] LABS: ABS Basophils 0 10^3/ul (0-0.2); ABS Eosinophils 0.7 10^3/ul (0-0.6); ABS Lymphocytes 1.6 10^3/ul (1.0-4.8); ABS Monocytes 0.5 10^3/ul (0-0.8); ABS Neutrophils 11.5 10^3/ul (1.5-7.7); ABS Nucleated RBC 0 10^3/ul; Hematocrit 26 % (42-52); Hemoglobin 7.6 g/dl (14.0-18.0); Mean Corpuscular HGB Conc 30 g/dl (31-36); Mean Corpuscular Hemoglobin 22 pg (27-31); Mean Corpuscular Volume 75 fL (80-94); Mean Platelet Volume 7.4 fL (7.4-10.4); Nucleated Red Blood Cells % 0; Platelet Count 349 10^3/ul (150-450); Red Blood Count 3.44 10^6/ul (4.00-5.40); Red Cell Distribution Width 18 % (10.5-15); White Blood Count 14.3 10^3/ul (3.5-10.8)
[2018-10-26 03:36] LABS: BUN/Creatinine Ratio 11.8 (8-20); Calcium 7.5 mg/dL (8.6-10.3); EGFR African American 34.9 (>60); EGFR Non-African American 28.8 (>60); Potassium 3.2 mmol/L (3.5-5.0)
[2018-10-26] MEDS ORDERED: Potassium Chlor TAB* 20 MEQ TAB.ER PO ONE (03:38)
[2018-10-26 04:40] LABS: Digoxin 1.1 ng/ml (0.8-2.0)
[2018-10-26] MEDS ORDERED: Insulin GLARGINE(*) 1 UNITS UNIT SUBCUT SCH (07:00)
[2018-10-26] MEDS ORDERED: Potassium Chloride LIQUID* 20 MEQ PACKET PO ONE (07:35)
[2018-10-26] MEDS: Mometasone/Formoter 100/5 MDI INH SCH ×2 (07:53→19:39)
[2018-10-26] MEDS: Neomycin/Polym/Bacit TOP OINT* 15 GM TOPICAL SCH (08:40)
[2018-10-26] MEDS: Insulin LISPRO* 1 UNITS UNIT SUBCUT SCH ×4 (08:40→21:37)
[2018-10-26] MEDS: Ferrous Sulfate TAB* 325 MG PO SCH ×3 (08:40→21:37)
[2018-10-26] MEDS: Pantoprazole TAB * 40 MG TAB PO SCH (08:40)
[2018-10-26] MEDS: Cyanocobalamin TAB* 500 MCG PO SCH (08:40)
[2018-10-26] MEDS: Heparin VIAL(*) 5000 UNITS/ML VIAL (FIVE THOUSAND) SUBCUT SCH ×2 (08:41→21:36)
[2018-10-26] MEDS: [UNRECOGNIZED DRUG - OTHER] TOPICAL SCH (08:41)
[2018-10-26] MEDS ORDERED: Insulin Detemir (NF) 100 UNIT/ML 10 ML VIAL SUBCUT SCH (09:00)
[2018-10-26] MEDS ORDERED: Digoxin TAB* 0.125 MG PO SCH (09:00)
[2018-10-26 10:56] LABS: Urine Creatinine Concentration 111.68 mg/dL
--- NOTE | 2018-10-26 11:02 | PN ---
Progress Note - Progress Note Date of Service: 10/26/18 Note: Pt seen and examined. Full note to follow. Pt with left heel diabetic foot ulceration. Eschar developed. Awaiting MRI. Pt states he has chronic osteomyelitis in both feet. Will evaluate after MRI and then discuss with foot and ankle colleagues.
[2018-10-26 11:19] LABS: Urine Appearance Clear; Urine Bacteria Absent (Absent); Urine Bilirubin Negative (Negative); Urine Blood 1+ (Negative); Urine Color Yellow; Urine Glucose 1+(50 mg/dL) (Negative); Urine Granular Casts Present (Absent); Urine Ketones Negative (Negative); Urine Nitrite Negative (Negative); Urine Protein 2+(100 mg/dL) (Negative); Urine Red Blood Cell Trace(0-2/hpf) (Absent); Urine Specific Gravity 1.013 (1.010-1.030); Urine Squamous Epithelial Cell Present (Absent); Urine Urobilinogen Negative (Negative); Urine White Blood Cell Trace(0-5/hpf) (Absent)
[2018-10-26] MEDS: Vancomycin(*) 750 MG in NS 0.9% 250 ML* 250 ML IVPB SCH ×2 (11:43→19:56)
[2018-10-26] MEDS: NS 0.9% 1000 ML** 1,000 ML IV SCH (11:45)
--- NOTE | 2018-10-26 14:00 | PN ---
Subjective Date of Service: 10/26/18 Interval History: Patient is feeling well today. Patient denies F/C, N/V, abdominal pain, diarrhea , CP, SOB, dizziness, palpitations, dysuria, passing out, foot pain, or other pain. Patient has been wearing his BiPAP at home. Patient knows of no new medications that have been started recently. Patient has been following routinely with the wound clinic. Family History: Unchanged from Admission Social History: Unchanged from Admission Past Medical History: Unchanged from Admission Objective Active Medications: Albuterol/Ipratropium (Duoneb (Albuterol 2.5 Mg/Ipratropium 0.5 Mg)) 1 neb INH Q4H PRN PRN Reason: SOB/WHEEZING Aspirin (Aspirin 81 Mg Chew Tab*) 81 mg PO QPM [facility] Cyanocobalamin (Vitamin B12 Tab*) 1,000 mcg PO DAILY [facility] Last Admin: 10/26/18 08:40 Dose: 1,000 mcg Dextrose (D50w Syringe 50 Ml*) 12.5 gm IV PUSH .FOR FS < 60 - SS PRN PRN Reason: FS < 60 Digoxin (Lanoxin Tab*) 0.125 mg PO EVERY OTHER DAY [facility] Ferrous Sulfate (Ferrous Sulfate Tab*) 325 mg PO TID [facility] Last Admin: 10/26/18 12:51 Dose: 325 mg Heparin Sodium (Porcine) (Heparin Vial(*)) 5,000 units SUBCUT Q12HR [facility] Last Admin: 10/26/18 08:41 Dose: 5,000 units Aztreonam 1 gm/ Sodium (Chloride) 50 mls @ 100 mls/hr IVPB Q8H [facility] Last Admin: 10/26/18 08:38 Dose: 100 mls/hr Metronidazole/Sodium Chloride (Flagyl 500 Mg Ivpb*) 500 mg in 100 mls @ 100 mls /hr IVPB Q8H [facility] Last Admin: 10/26/18 10:12 Dose: 100 mls/hr Sodium Chloride (Ns 0.9% 1000 Ml*) 1,000 mls @ 75 mls/hr IV PER RATE [facility] Last Admin: 10/26/18 11:45 Dose: 75 mls/hr Vancomycin HCl 750 mg/ Sodium (Chloride) 250 mls @ 166.667 mls/hr IVPB Q8H [facility] Last Admin: 10/26/18 11:43 Dose: 166.667 mls/hr Insulin Glargine (Lantus(*)) 40 units SUBCUT Q12H [facility] Last Admin: 10/26/18 08:41 Dose: 40 units Insulin Human Lispro (Humalog*) 0 units SUBCUT ACHS [facility]; Protocol Last Admin: 10/26/18 12:52 Dose: 3 units Mometasone Furoate/Formoterol Fumar (Dulera 100/5 Mdi*) 1 puff INH BID [facility] Last Admin: 10/26/18 07:53 Dose: 1 puff Neomycin/Polymyxin/Bacitracin (Neosporin Top Oint Tube*) 1 applic TOPICAL DAILY [facility] Last Admin: 10/26/18 08:40 Dose: 1 applic [Amlactin Foot Cream (] Ointment) 1 oint TOPICAL DAILY [facility] Last Admin: 10/26/18 08:41 Dose: Not Given Pantoprazole Sodium (Protonix Tab*) 40 mg PO DAILY [facility] Last Admin: 10/26/18 08:40 Dose: 40 mg Pharmacy Consult (Vancomycin Per Pharmacy*) 1 note FOLLOW UP . PRN PRN Reason: PER PROTOCOL Pharmacy Profile Note (Vancomycin Trough Check) 1 note FOLLOW UP 1100 ONE Stop: 10/27/18 11:01 Tamsulosin HCl (Flomax Cap*) 0.4 mg PO BEDTIME [facility] Vital Signs - 8 hr 10/26/18 10/26/18 10/26/18 07:38 07:54 08:07 Temperature 98.0 F Pulse Rate 85 Respiratory 20 16 Rate Blood Pressure 136/55 (mmHg) O2 Sat by Pulse 98 97 Oximetry Oxygen Devices in Use Now: Nasal Cannula Appearance: Patient is a 63yo male who appears older than stated age and is sitting in the bed in [facility]. Eyes: No Scleral Icterus, PERRLA Ears/Nose/Mouth/Throat: NL Teeth, Lips, Gums, Clear Oropharnyx, Mucous Membranes Moist Neck: NL Appearance and Movements; NL JVP, Trachea Midline Respiratory: Symmetrical Chest Expansion and Respiratory Effort, Clear to Auscultation Cardiovascular: NL Sounds; No Murmurs; No JVD, RRR, No Edema Abdominal: NL Sounds; No Tenderness; No Distention, No Hepatosplenomegaly Lymphatic: No Cervical Adenopathy Extremities: No Edema, No Clubbing, Cyanosis Skin: No Rash or Ulcers, No Nodules or Sclerosis Neurological: Alert and Oriented x 3, NL Sensation, NL Muscle Strength and Tone , - - CN II-XII intact. - Nutrition: Malnutrition Diagnosis/Plan Malnutrition Assessment by Registered Dietitian: Malnutrition Assessment Clinical Characteristics Chronic,Moderate Malnutrition Assessment: - wt loss 13.6% in past three months Criteria - poor po intake at [facility] meeting <75% EEE x > 1 month Malnutrition Assessment: 1. continue consistent carb diet; follow FS Interventions results 2. suggest recheck A1c, given pt's significant wt loss and poor appetite since Jul 2018 3. Glucerna Shake daily at 3pm (add'l 220 kcals , 10 g prot) 4. pt declined offer for snacks, but aware that peanut butter and other sandwiches are available to him as desired; he will request as needed Malnutrition Assessment: Goals 1. adequate po intake to promote ulcer healing and maintain lean body mass without add'l wt gain 2. ulcers ot bilat feet will show evidence of healing and no evidence of new pressure-related skin breakdown 3. glycemic control will improve/stabilize; without hypo/hyperglycemia Result Diagrams: 10/26/18 03:04 10/26/18 03:04 Additional Lab and Data: Lab Results Microbiology and Other Data: Microbiology 10/26/18 00:01 Nasal Screen MRSA (PCR) - Final Nasal Mrsa Not Detected Assess/Plan/Problems-Billing Assessment: Patient is a 63yo male with a PMH for HFrEF, COPD, DM II, LUANA, GAEL, and chronic osteomyelitis of the feet who was sent to the hospital from the wound clinic for new left heel wound and was admitted for concern for new osteomyelitis/ cellulitis. - Patient Problems (1) Diabetic foot ulcer Current Visit: Yes Status: Acute Code(s): E11.621 - TYPE 2 DIABETES MELLITUS WITH FOOT ULCER; L97.509 - NON-PRESSURE CHRONIC ULCER OTH PRT UNSP FOOT W UNSP SEVERITY SNOMED Code(s): 760695640 Comment: - Diabetic foot ulcer, followed by wound clinic. Worsening erythema and concern for infection - ESR and CRP severely elevated. - Continue Vanc, Aztreonam, Flagyl - Wound consult requested, will get culture if able. - Ortho consult appreciated. - ID consult pending. - MRI pending. - Blood cultures pending. - Pressure reduction (2) Lactic acid acidosis Current Visit: Yes Status: Acute Code(s): E87.2 - ACIDOSIS SNOMED Code(s) : 01894837 Comment: - Due to combination of foot infection and metformin with ELIZA - Improved with IV fluids - Hold Metformin and diuretics. (3) Obesity hypoventilation syndrome Current Visit: Yes Status: Acute Code(s): E66.2 - MORBID (SEVERE) OBESITY WITH ALVEOLAR HYPOVENTILATION SNOMED Code(s): 447945243 Comment: - Continue Night BiPAP - Patient has lost 40 lbs in last several months. (4) Sepsis Current Visit: Yes Status: Acute Comment: - Likely due to left foot ulcer. - Giving broad specturm antibiotics, IV fluid - blood culture ordered. - Lactic Acidosis improved - Leukocytosis improving - No tachycardia, hypotension, or fever. (5) ELIZA (acute kidney injury) Current Visit: No Status: Acute Code(s): N17.9 - ACUTE KIDNEY FAILURE, UNSPECIFIED SNOMED Code(s): 47344138 Comment: - Continue IV fluids, hold diuretics. - FeNa .8% - Granular casts without WBCs in urine. No recent offending medications patient can remember - Consider Nephrology consult if failure to improve. - On Vancomycin, monitor closely and avoid other nephrotoxins. (6) Anemia Current Visit: No Status: Acute Code(s): D64.9 - ANEMIA, UNSPECIFIED SNOMED Code(s): 034549967 Comment: - Iron studies from last hospitalization suggestive of iron deficient (Iron sat 7%; Iron level 23) and low normal B12 - Continue oral iron and B12, may benefit from IV iron once infection controlled - May benefit from Colonoscopy and Endoscopy outpatient if respiratory status would tolerate. (7) Congestive heart failure Current Visit: No Status: Acute Priority: High Onset Date: 04/19/14 Code (s): I50.9 - HEART FAILURE, UNSPECIFIED SNOMED Code(s): 56876566 Comment: - Currently stable. - Judicious use of IV fluids - Hold diuretics - Strict I/O and Daily weights. (8) Diabetes Current Visit: No Status: Acute Code(s): E11.9 - TYPE 2 DIABETES MELLITUS WITHOUT COMPLICATIONS SNOMED Code(s): 54134744 Comment: - Due to lactic acidosis hold metformin and linagliptin - Continue home dose insulin long acting, add sliding scale insulin and add scheduled mealtime insulin as needed. (9) HTN (hypertension) Current Visit: No Status: Acute Code(s): I10 - ESSENTIAL (PRIMARY) HYPERTENSION SNOMED Code(s): 20804241 Comment: - Normotensive, continue metoprolol at decreased dose. (10) Hypercapnic respiratory failure Current Visit: No Status: Acute Code(s): J96.92 - RESPIRATORY FAILURE, UNSPECIFIED WITH HYPERCAPNIA SNOMED Code(s): 008691708 Comment: - Echo 07/18/18 EF 55% and left ventricular diastolic dysfunction and the right ventricule is hypertrophied and demonstrated decrease right ventricular systollic functions, suggestive of cor Pulmonale - obesity hypoventilation syndrome and COPD with chronic 2L O2 requirement at home - Bipap at night - HCO3 around baseline. (11) PAD (peripheral artery disease) Current Visit: No Status: Acute Code(s): I73.9 - PERIPHERAL VASCULAR DISEASE , UNSPECIFIED SNOMED Code(s): 054334256 Comment: - ANASTASIYA 07/19/18 revealed 0.83 on the right and 0.64 on the left, worsening when compared to 03/13/2012 - Continue aspirin 81 mg daily and Heparin 5000 u SQ. - At this time he is high risk for any vascular interventions due to renal failure. - Intervention may be needed if surgical intervention indicated for foot ulcer.. (12) DVT prophylaxis Current Visit: No Status: Acute Code(s): QBG3671 - SNOMED Code(s): 490988796 Comment: HSQ Status and Disposition: Inpatient for IV antibiotics and possible debridement or other more intensive intervention.
--- NOTE | 2018-10-26 16:39 | CONS ---
CONSULTATION REPORT: DATE OF CONSULT: 10/26/18 ATTENDING PHYSICIAN: Shelby Garrido MD. HISTORY OF PRESENT ILLNESS: This is a 63-year-old male with a left heel ulceration that began approx imately in the last week. He has been seen in the wound clinic for his heel. Per the patient's hist ory, he states that he has chronic osteomyelitis in both feet. He has a history of diabetes, COPD, c hronic left heel wound, and he is non-weight bearing. He has been nonambulatory for the last 7 years . He uses a wheelchair to get around. He states he noticed some discharge and some drainage from hi s left heel. He was sent here for evaluation with concerns for infection. He is having no pain. He does have dense neuropathy. No fevers or chills. PAST MEDICAL HISTORY: Type 2 diabetes, uncontrolled; CHF with ejection fraction of 40% to 45%; COPD, on home O2 at 2 L; chronic kidney disease; osteomyelitis; hypertension; anemia; obesity; pulmonary h ypertension; chronic back pain; history of depression. PAST SURGICAL HISTORY: None. FAMILY HISTORY: History for stroke in his mother. Father with heart attack. SOCIAL HISTORY: He lives at [facility], [place]. He is nonambulatory. He is in a wheelchair. No smoking or alcohol. REVIEW OF SYSTEMS: A 14-point review of systems reviewed with the patient, significant for left heel ulceration; low back pain; shortness of breath, on home oxygen; depression. Otherwise, remaining sy stems are negative. PHYSICAL EXAM: He is in no acute distress. He is obese. He is lying comfortably in the bed. He is sleepy but arousable. Temperature of 98.5, pulse 85, respiratory rate 20, 98% O2 saturation on 2 L, blood pressure 135/55. EOMI. Chest is clear to auscultation. Heart is regular rate and rhythm. A bdomen is soft and nontender. Examination of left leg demonstrates a heel ulceration with an eschar, appears to be dependent at the base of the heel. There is no significant surrounding erythema. He is able to flex and extend his toes and dorsiflex and plantar flex his ankle, but he is densely neuro pathic. He has a okay cap refill. He has a DP pulse that is palpable. DIAGNOSTIC STUDIES/LAB DATA: X-rays of the heel were reviewed that demonstrate osteopenia, possible osteomyelitis. Labs: White count of 14.3, platelet count of 349, ESR 120, hematocrit of 26. Sodium of 138, potassiu m 3.2, chloride 93, carbon dioxide 40, BUN 27, creatinine 2.29, glucose 147, calcium 7.5. CRP of 136 .5. UA is negative. ASSESSMENT AND PLAN: He has a chronic left foot ulceration and likely osteomyelitis. We will order an MRI and see if there is a soft tissue pocket of pus. I am going to have him see my foot and ankle surgeon to see if he is a possible candidate for an amputation versus debridement. We will continue to follow the patient inhouse. He is non-weight bearing and he is nonambulatory. We will continue to follow the patient. [id number]/[facility] #: [id number]
[2018-10-26] MEDS: Aspirin 81 mg CHEW TAB* 81 MG TAB.CHEW PO SCH (17:48)
[2018-10-26] MEDS: Insulin GLARGINE(*) 1 UNITS UNIT SUBCUT SCH (21:36)
[2018-10-26] MEDS: Metoprolol Tartrate TAB* 25 MG PO SCH (21:37)
[2018-10-26] MEDS: Tamsulosin CAP* 0.4 MG PO SCH (21:37)
[2018-10-27] MEDS: Aztreonam (*) 1 GM in NS 0.9% 50 ML* 50 ML IVPB SCH ×3 (00:44→16:58)
[2018-10-27] MEDS: metroNIDAZOLE IV 500 MG/100ML* 500 MG/100 ML BAG IVPB SCH ×3 (00:55→17:41)
[2018-10-27] MEDS: Vancomycin(*) 750 MG in NS 0.9% 250 ML* 250 ML IVPB SCH ×3 (03:06→18:56)
[2018-10-27 06:28] LABS: ABS Basophils 0 10^3/ul (0-0.2); ABS Eosinophils 0.7 10^3/ul (0-0.6); ABS Lymphocytes 1.4 10^3/ul (1.0-4.8); ABS Monocytes 0.4 10^3/ul (0-0.8); ABS Neutrophils 7.9 10^3/ul (1.5-7.7); ABS Nucleated RBC 0 10^3/ul; Eosinophil % 7.1 %; Hematocrit 25 % (42-52); Hemoglobin 7.5 g/dl (14.0-18.0); Lymphocyte % 13.1 %; Mean Corpuscular HGB Conc 30 g/dl (31-36); Mean Corpuscular Hemoglobin 23 pg (27-31); Mean Corpuscular Volume 75 fL (80-94); Mean Platelet Volume 7.6 fL (7.4-10.4); Nucleated Red Blood Cells % 0; Platelet Count 329 10^3/ul (150-450); Red Cell Distribution Width 18 % (10.5-15); White Blood Count 10.5 10^3/ul (3.5-10.8)
[2018-10-27 06:39] LABS: BUN/Creatinine Ratio 12.6 (8-20); Calcium 7.7 mg/dL (8.6-10.3); EGFR African American 47.9 (>60); EGFR Non-African American 39.6 (>60); Magnesium 1.4 mg/dL (1.9-2.7); Potassium 3.3 mmol/L (3.5-5.0)
[2018-10-27 06:44] LABS: Vancomycin Random 28.6 mcg/mL
[2018-10-27] MEDS: Mometasone/Formoter 100/5 MDI INH SCH ×2 (07:29→19:49)
[2018-10-27] MEDS ORDERED: Magnesium Sulf 4 GM/100 ML IV* 4,000 MG/100 ML BAG IVPB ONE (07:30)
--- NOTE | 2018-10-27 08:12 | PN ---
Progress Note - Progress Note Date of Service: 10/27/18 Note: Pt seen and examined. Resting comfortably. MRI likely tomorrow. No SOB, CP. No pain Temp Pulse Resp BP Pulse Ox 97.6 F 70 14 143/61 97 10/27/18 07:17 10/27/18 07:30 10/27/18 07:30 10/27/18 07:17 10/27/18 07:30 NAD. Left heel dressing in place. no significant increase in erythema. densely neuropathic. warm foot. Laboratory Results - last 24 hr 10/26/18 10/26/18 10/26/18 03:04 08:00 09:40 WBC RBC Hgb Hct MCV MCH MCHC RDW Plt Count MPV Neut % (Auto) Lymph % (Auto) [place] % (Auto) Eos % (Auto) Baso % (Auto) Absolute Neuts (auto) Absolute Lymphs (auto) Absolute Monos (auto) Absolute Eos (auto) Absolute Basos (auto) Absolute Nucleated RBC Nucleated RBC % Sodium Potassium Chloride Carbon Dioxide Anion Gap BUN Creatinine Est GFR ( Amer) Est GFR (Non-Af Amer) BUN/Creatinine Ratio Glucose POC Glucose (mg/dL) 147 H Hemoglobin A1c 5.8 H Calcium Magnesium Urine Color Yellow Urine Appearance Clear Urine pH 5.0 Ur Specific [place] 1.013 Urine Protein 2+(100 mg/dl) A Urine Ketones Negative Urine Blood 1+ A Urine Nitrate Negative Urine Bilirubin Negative Urine Urobilinogen Negative Ur Leukocyte Esterase Negative Urine WBC (Auto) Trace(0-5/hpf) Urine RBC (Auto) Trace(0-2/hpf) Ur Squamous Epith Cells Present A Urine Bacteria Absent Hyaline Casts Present A Granular Casts Present A Ur Creatinine Concen U Sodium Concentration Urine Glucose 1+(50 mg/dl) A Random Vancomycin 10/26/18 10/26/18 10/26/18 09:40 11:48 17:21 WBC RBC Hgb Hct MCV MCH MCHC RDW Plt Count MPV Neut % (Auto) Lymph % (Auto) [place] % (Auto) Eos % (Auto) Baso % (Auto) Absolute Neuts (auto) Absolute Lymphs (auto) Absolute Monos (auto) Absolute Eos (auto) Absolute Basos (auto) Absolute Nucleated RBC Nucleated RBC % Sodium Potassium Chloride Carbon Dioxide Anion Gap BUN Creatinine Est GFR ( Amer) Est GFR (Non-Af Amer) BUN/Creatinine Ratio Glucose POC Glucose (mg/dL) 188 H 153 H Hemoglobin A1c Calcium Magnesium Urine Color Urine Appearance Urine pH Ur Specific [place] Urine Protein Urine Ketones Urine Blood Urine Nitrate Urine Bilirubin Urine Urobilinogen Ur Leukocyte Esterase Urine WBC (Auto) Urine RBC (Auto) Ur Squamous Epith Cells Urine Bacteria Hyaline Casts Granular Casts Ur Creatinine Concen 111.68 U Sodium Concentration 53 Urine Glucose Random Vancomycin 10/26/18 10/27/18 10/27/18 20:05 05:50 05:50 WBC 10.5 RBC 3.30 L Hgb 7.5 L Hct 25 L MCV 75 L MCH 23 L MCHC 30 L RDW 18 H Plt Count 329 MPV 7.6 Neut % (Auto) 75.6 Lymph % (Auto) 13.1 [place] % (Auto) 3.8 Eos % (Auto) 7.1 Baso % (Auto) 0.4 Absolute Neuts (auto) 7.9 H Absolute Lymphs (auto) 1.4 Absolute Monos (auto) 0.4 Absolute Eos (auto) 0.7 H Absolute Basos (auto) 0 Absolute Nucleated RBC 0 Nucleated RBC % 0 Sodium 142 Potassium 3.3 L Chloride 98 L Carbon Dioxide 38 H Anion Gap 6 BUN 22 Creatinine 1.74 H Est GFR ( Amer) 47.9 Est GFR (Non-Af Amer) 39.6 BUN/Creatinine Ratio 12.6 Glucose 72 POC Glucose (mg/dL) 190 H Hemoglobin A1c Calcium 7.7 L Magnesium 1.4 L Urine Color Urine Appearance Urine pH Ur Specific [place] Urine Protein Urine Ketones Urine Blood Urine Nitrate Urine Bilirubin Urine Urobilinogen Ur Leukocyte Esterase Urine WBC (Auto) Urine RBC (Auto) Ur Squamous Epith Cells Urine Bacteria Hyaline Casts Granular Casts Ur Creatinine Concen U Sodium Concentration Urine Glucose Random Vancomycin 28.6 10/27/18 07:41 WBC RBC Hgb Hct MCV MCH MCHC RDW Plt Count MPV Neut % (Auto) Lymph % (Auto) [place] % (Auto) Eos % (Auto) Baso % (Auto) Absolute Neuts (auto) Absolute Lymphs (auto) Absolute Monos (auto) Absolute Eos (auto) Absolute Basos (auto) Absolute Nucleated RBC Nucleated RBC % Sodium Potassium Chloride Carbon Dioxide Anion Gap BUN Creatinine Est GFR ( Amer) Est GFR (Non-Af Amer) BUN/Creatinine Ratio Glucose POC Glucose (mg/dL) 73 Hemoglobin A1c Calcium Magnesium Urine Color Urine Appearance Urine pH Ur Specific [place] Urine Protein Urine Ketones Urine Blood Urine Nitrate Urine Bilirubin Urine Urobilinogen Ur Leukocyte Esterase Urine WBC (Auto) Urine RBC (Auto) Ur Squamous Epith Cells Urine Bacteria Hyaline Casts Granular Casts Ur Creatinine Concen U Sodium Concentration Urine Glucose Random Vancomycin A/P 63 yo poorly controlled diabetic with likely osteo and left foot heel ulceration MRI tomorrow will discuss with foot and ankle team for possible surgical intervention continue IV abx. and remove from pressure
[2018-10-27] MEDS: Insulin LISPRO* 1 UNITS UNIT SUBCUT SCH ×4 (08:49→21:19)
[2018-10-27] MEDS: Ferrous Sulfate TAB* 325 MG PO SCH ×3 (09:12→21:18)
[2018-10-27] MEDS: Cyanocobalamin TAB* 500 MCG PO SCH (09:12)
[2018-10-27] MEDS: Metoprolol Tartrate TAB* 25 MG PO SCH ×2 (09:12→21:18)
[2018-10-27] MEDS: Digoxin TAB* 0.125 MG PO SCH (09:17)
[2018-10-27] MEDS: Heparin VIAL(*) 5000 UNITS/ML VIAL (FIVE THOUSAND) SUBCUT SCH ×2 (09:18→21:18)
[2018-10-27] MEDS: Insulin GLARGINE(*) 1 UNITS UNIT SUBCUT SCH ×2 (09:18→21:19)
[2018-10-27] MEDS: Pantoprazole TAB * 40 MG TAB PO SCH (09:19)
[2018-10-27] MEDS: [UNRECOGNIZED DRUG - OTHER] TOPICAL SCH (09:27)
[2018-10-27] MEDS: Neomycin/Polym/Bacit TOP OINT* 15 GM TOPICAL SCH (10:12)
[2018-10-27] MEDS: Vancomycin Trough Check NOTE FOLLOW UP ONE ×2 (11:36→12:18)
[2018-10-27] MEDS: NS 0.9% 1000 ML** 1,000 ML IV SCH (12:16)
--- NOTE | 2018-10-27 13:57 | PN ---
Subjective Date of Service: 10/27/18 Interval History: Patient is feeing well today. No Pain, F/C, CP, SOB, N/V, abdominal pain, diarrhea, dysuria, palpitations, dysuria, oliguria, or other pain. Family History: Unchanged from Admission Social History: Unchanged from Admission Past Medical History: Unchanged from Admission Objective Active Medications: Albuterol/Ipratropium (Duoneb (Albuterol 2.5 Mg/Ipratropium 0.5 Mg)) 1 neb INH Q4H PRN PRN Reason: SOB/WHEEZING Aspirin (Aspirin 81 Mg Chew Tab*) 81 mg PO QPM [facility] Last Admin: 10/26/18 17:48 Dose: 81 mg Cyanocobalamin (Vitamin B12 Tab*) 1,000 mcg PO DAILY [facility] Last Admin: 10/27/18 09:12 Dose: 1,000 mcg Dextrose (D50w Syringe 50 Ml*) 12.5 gm IV PUSH .FOR FS < 60 - SS PRN PRN Reason: FS < 60 Digoxin (Lanoxin Tab*) 0.125 mg PO EVERY OTHER DAY [facility] Last Admin: 10/27/18 09:17 Dose: 0.125 mg Ferrous Sulfate (Ferrous Sulfate Tab*) 325 mg PO TID [facility] Last Admin: 10/27/18 12:50 Dose: 325 mg Heparin Sodium (Porcine) (Heparin Vial(*)) 5,000 units SUBCUT Q12HR [facility] Last Admin: 10/27/18 09:18 Dose: 5,000 units Aztreonam 1 gm/ Sodium (Chloride) 50 mls @ 100 mls/hr IVPB Q8H [facility] Last Admin: 10/27/18 09:13 Dose: 100 mls/hr Metronidazole/Sodium Chloride (Flagyl 500 Mg Ivpb*) 500 mg in 100 mls @ 100 mls /hr IVPB Q8H [facility] Last Admin: 10/27/18 10:11 Dose: 100 mls/hr Sodium Chloride (Ns 0.9% 1000 Ml*) 1,000 mls @ 75 mls/hr IV PER RATE [facility] Last Admin: 10/27/18 12:16 Dose: 75 mls/hr Vancomycin HCl 750 mg/ Sodium (Chloride) 250 mls @ 166.667 mls/hr IVPB Q12H [facility] Insulin Glargine (Lantus(*)) 40 units SUBCUT Q12HR [facility] Last Admin: 10/27/18 09:18 Dose: 40 unit Insulin Human Lispro (Humalog*) 0 units SUBCUT ACHS [facility]; Protocol Last Admin: 10/27/18 12:50 Dose: 3 units Metoprolol Tartrate (Lopressor Tab*) 25 mg PO BID [facility] Last Admin: 10/27/18 09:12 Dose: 25 mg Mometasone Furoate/Formoterol Fumar (Dulera 100/5 Mdi*) 1 puff INH BID [facility] Last Admin: 10/27/18 07:29 Dose: 1 puff Neomycin/Polymyxin/Bacitracin (Neosporin Top Oint Tube*) 1 applic TOPICAL DAILY [facility] Last Admin: 10/27/18 10:12 Dose: 1 applic [Amlactin Foot Cream (] Ointment) 1 oint TOPICAL DAILY [facility] Last Admin: 10/27/18 09:27 Dose: Not Given Pantoprazole Sodium (Protonix Tab*) 40 mg PO DAILY [facility] Last Admin: 10/27/18 09:19 Dose: 40 mg Pharmacy Consult (Vancomycin Per Pharmacy*) 1 note FOLLOW UP . PRN PRN Reason: PER PROTOCOL Pharmacy Profile Note (Vancomycin Trough Check) 1 note FOLLOW UP ONCE ONE Stop: 10/29/18 05:31 Tamsulosin HCl (Flomax Cap*) 0.4 mg PO BEDTIME [facility] Last Admin: 10/26/18 21:37 Dose: 0.4 mg Vital Signs - 8 hr 10/27/18 10/27/18 10/27/18 07:17 07:30 09:17 Temperature 97.6 F Pulse Rate 73 70 80 Respiratory 20 14 Rate Blood Pressure 143/61 (mmHg) O2 Sat by Pulse 99 97 Oximetry 10/27/18 10/27/18 10:03 11:29 Temperature 98.2 F Pulse Rate 68 Respiratory 14 20 Rate Blood Pressure 126/48 (mmHg) O2 Sat by Pulse 99 Oximetry Oxygen Devices in Use Now: Nasal Cannula Appearance: Patient is a 63yo male who appears stated age and is sitting in the bed in NAD. Eyes: No Scleral Icterus, PERRLA Ears/Nose/Mouth/Throat: NL Teeth, Lips, Gums, Clear Oropharnyx, Mucous Membranes Moist Neck: NL Appearance and Movements; NL JVP, Trachea Midline Respiratory: Symmetrical Chest Expansion and Respiratory Effort, Clear to Auscultation, - - Diminished. Cardiovascular: NL Sounds; No Murmurs; No JVD, RRR, No Edema Abdominal: NL Sounds; No Tenderness; No Distention, No Hepatosplenomegaly Lymphatic: No Cervical Adenopathy Extremities: No Edema, No Clubbing, Cyanosis Skin: No Nodules or Sclerosis, - - Left heel ulceration with eschar and receding area of erythema. Neurological: Alert and Oriented x 3, NL Muscle Strength and Tone, - - Sensory Loss in B/L LE. - Nutrition: Malnutrition Diagnosis/Plan Malnutrition Assessment by Registered Dietitian: Malnutrition Assessment Clinical Characteristics Chronic,Moderate Malnutrition Assessment: - wt loss 13.6% in past three months Criteria - poor po intake at [facility] meeting <75% EEE x > 1 month Malnutrition Assessment: 1. continue consistent carb diet; follow FS Interventions results 2. suggest recheck A1c, given pt's significant wt loss and poor appetite since Jul 2018 3. Glucerna Shake daily at 3pm (add'l 220 kcals , 10 g prot) 4. pt declined offer for snacks, but aware that peanut butter and other sandwiches are available to him as desired; he will request as needed Malnutrition Assessment: Goals 1. adequate po intake to promote ulcer healing and maintain lean body mass without add'l wt gain 2. ulcers ot bilat feet will show evidence of healing and no evidence of new pressure-related skin breakdown 3. glycemic control will improve/stabilize; without hypo/hyperglycemia Result Diagrams: 10/27/18 05:50 10/27/18 05:50 Additional Lab and Data: Lab Results Microbiology and Other Data: Microbiology 10/26/18 00:01 Nasal Screen MRSA (PCR) - Final Nasal Mrsa Not Detected Assess/Plan/Problems-Billing Assessment: Patient is a 63yo male with a PMH for HFrEF, COPD, DM II, LUANA, GAEL, and chronic osteomyelitis of the feet who was sent to the hospital from the wound clinic for new left heel wound and was admitted for concern for new osteomyelitis/ cellulitis. - Patient Problems (1) Diabetic foot ulcer Current Visit: Yes Status: Acute Code(s): E11.621 - TYPE 2 DIABETES MELLITUS WITH FOOT ULCER; L97.509 - NON-PRESSURE CHRONIC ULCER OTH PRT UNSP FOOT W UNSP SEVERITY SNOMED Code(s): 392104656 Comment: - Diabetic foot ulcer, followed by wound clinic. Worsening erythema and concern for infection - ESR and CRP severely elevated. - Continue Vanc, Aztreonam, Flagyl. Will narrow when MRI results available. - Wound consult requested - Cultue shows MSSA - Ortho consult appreciated. - ID consult pending. - MRI pending. - Blood cultures negative to date. - Pressure reduction (2) Lactic acid acidosis Current Visit: Yes Status: Acute Code(s): E87.2 - ACIDOSIS SNOMED Code(s) : 84214686 Comment: - Due to combination of foot infection and metformin with ELIZA - Improved with IV fluids - Hold Metformin and diuretics. (3) Obesity hypoventilation syndrome Current Visit: Yes Status: Acute Code(s): E66.2 - MORBID (SEVERE) OBESITY WITH ALVEOLAR HYPOVENTILATION SNOMED Code(s): 468394396 Comment: - Continue Night BiPAP - Patient has lost 40 lbs in last several months. (4) Sepsis Current Visit: Yes Status: Acute Comment: - Resolved - Likely due to left foot ulcer. - Giving broad specturm antibiotics, IV fluid - blood culture ordered. - Lactic Acidosis improved - Leukocytosis improving - No tachycardia, hypotension, or fever. (5) ELIZA (acute kidney injury) Current Visit: No Status: Acute Code(s): N17.9 - ACUTE KIDNEY FAILURE, UNSPECIFIED SNOMED Code(s): 18247952 Comment: - FeNa .8% - Granular casts without WBCs in urine. No recent offending medications patient can remember - Improving with fluids, Stop fluids and monitor - On Vancomycin, monitor closely and avoid other nephrotoxins. (6) Anemia Current Visit: No Status: Acute Code(s): D64.9 - ANEMIA, UNSPECIFIED SNOMED Code(s): 080330272 Comment: - Iron studies from last hospitalization suggestive of iron deficient (Iron sat 7%; Iron level 23) and low normal B12 - Continue oral iron and B12, may benefit from IV iron once infection controlled - May benefit from Colonoscopy and Endoscopy outpatient if respiratory status would tolerate. (7) Congestive heart failure Current Visit: No Status: Acute Priority: High Onset Date: 04/19/14 Code (s): I50.9 - HEART FAILURE, UNSPECIFIED SNOMED Code(s): 98001220 Comment: - Currently stable. - Judicious use of IV fluids - Hold diuretics - Strict I/O and Daily weights. (8) Diabetes Current Visit: No Status: Acute Code(s): E11.9 - TYPE 2 DIABETES MELLITUS WITHOUT COMPLICATIONS SNOMED Code(s): 42481443 Comment: - Due to lactic acidosis hold metformin and linagliptin - Continue home dose insulin long acting, add sliding scale insulin and add scheduled mealtime insulin as needed. (9) HTN (hypertension) Current Visit: No Status: Acute Code(s): I10 - ESSENTIAL (PRIMARY) HYPERTENSION SNOMED Code(s): 81956848 Comment: - Normotensive, continue metoprolol at decreased dose. (10) Hypercapnic respiratory failure Current Visit: No Status: Acute Code(s): J96.92 - RESPIRATORY FAILURE, UNSPECIFIED WITH HYPERCAPNIA SNOMED Code(s): 247024004 Comment: - Echo 07/18/18 EF 55% and left ventricular diastolic dysfunction and the right ventricule is hypertrophied and demonstrated decrease right ventricular systollic functions, suggestive of cor Pulmonale - obesity hypoventilation syndrome and COPD with chronic 2L O2 requirement at home - Bipap at night - HCO3 around baseline. (11) PAD (peripheral artery disease) Current Visit: No Status: Acute Code(s): I73.9 - PERIPHERAL VASCULAR DISEASE , UNSPECIFIED SNOMED Code(s): 448863205 Comment: - ANASTASIYA 07/19/18 revealed 0.83 on the right and 0.64 on the left, worsening when compared to 03/13/2012 - Continue aspirin 81 mg daily and Heparin 5000 u SQ. - At this time he is high risk for any vascular interventions due to renal failure. - Intervention may be needed if surgical intervention indicated for foot ulcer.. (12) DVT prophylaxis Current Visit: No Status: Acute Code(s): MID1509 - SNOMED Code(s): 057701975 Comment: HSQ Status and Disposition: Inpatient for IV antibiotics and possible debridement or other more intensive intervention.
[2018-10-27] MEDS: Aspirin 81 mg CHEW TAB* 81 MG TAB.CHEW PO SCH (18:56)
[2018-10-27] MEDS: Tamsulosin CAP* 0.4 MG PO SCH (21:19)
[2018-10-28] MEDS: metroNIDAZOLE IV 500 MG/100ML* 500 MG/100 ML BAG IVPB SCH ×3 (00:34→18:41)
[2018-10-28] MEDS: Aztreonam (*) 1 GM in NS 0.9% 50 ML* 50 ML IVPB SCH ×2 (01:22→08:17)
[2018-10-28] MEDS: Vancomycin(*) 750 MG in NS 0.9% 250 ML* 250 ML IVPB SCH (05:57)
[2018-10-28 06:50] LABS: ABS Basophils 0 10^3/ul (0-0.2); ABS Eosinophils 0.7 10^3/ul (0-0.6); ABS Lymphocytes 1.4 10^3/ul (1.0-4.8); ABS Monocytes 0.4 10^3/ul (0-0.8); ABS Neutrophils 7.9 10^3/ul (1.5-7.7); ABS Nucleated RBC 0 10^3/ul; Eosinophil % 6.5 %; Hematocrit 24 % (42-52); Hemoglobin 7.2 g/dl (14.0-18.0); Lymphocyte % 13.4 %; Mean Corpuscular HGB Conc 30 g/dl (31-36); Mean Corpuscular Hemoglobin 23 pg (27-31); Mean Corpuscular Volume 75 fL (80-94); Mean Platelet Volume 7.6 fL (7.4-10.4); Nucleated Red Blood Cells % 0; Platelet Count 343 10^3/ul (150-450); Red Blood Count 3.19 10^6/ul (4.00-5.40); Red Cell Distribution Width 19 % (10.5-15); White Blood Count 10.3 10^3/ul (3.5-10.8)
[2018-10-28 07:06] LABS: BUN/Creatinine Ratio 11.7 (8-20); Calcium 7.9 mg/dL (8.6-10.3); EGFR African American 55.1 (>60); EGFR Non-African American 45.6 (>60); Magnesium 1.9 mg/dL (1.9-2.7); Potassium 3.3 mmol/L (3.5-5.0)
[2018-10-28] MEDS ORDERED: Potassium Chloride LIQUID* 20 MEQ PACKET PO ONE (07:14)
[2018-10-28] MEDS: Mometasone/Formoter 100/5 MDI INH SCH ×2 (07:49→20:12)
[2018-10-28] MEDS: KCL 20 MEQ/100 ML IVPREMIX* 20 MEQ/100 ML BAG IV SCH ×2 (08:20→10:53)
[2018-10-28] MEDS: Insulin LISPRO* 1 UNITS UNIT SUBCUT SCH ×4 (08:24→21:51)
[2018-10-28] MEDS: Metoprolol Tartrate TAB* 25 MG PO SCH ×2 (09:24→21:48)
[2018-10-28] MEDS: Pantoprazole TAB * 40 MG TAB PO SCH (09:24)
[2018-10-28] MEDS: Ferrous Sulfate TAB* 325 MG PO SCH ×3 (09:24→21:48)
[2018-10-28] MEDS: Cyanocobalamin TAB* 500 MCG PO SCH (09:24)
[2018-10-28] MEDS: [UNRECOGNIZED DRUG - OTHER] TOPICAL SCH (09:26)
[2018-10-28] MEDS: Neomycin/Polym/Bacit TOP OINT* 15 GM TOPICAL SCH (09:26)
[2018-10-28] MEDS: Heparin VIAL(*) 5000 UNITS/ML VIAL (FIVE THOUSAND) SUBCUT SCH ×2 (09:29→21:51)
[2018-10-28] MEDS: Insulin GLARGINE(*) 1 UNITS UNIT SUBCUT SCH ×2 (09:29→21:49)
[2018-10-28] MEDS: ceFAZolin 2 GM PREMIX in ORs 2 GM/50 ML BAG IVPB SCH ×2 (10:53→18:00)
--- NOTE | 2018-10-28 15:54 | PN ---
Subjective Date of Service: 10/28/18 Interval History: Patient is feeling well today. Patient denies CP, SOB, F/C, N/V, abdominal pain , diarrhea, dysuria, palpitations, or other pain. Family History: Unchanged from Admission Social History: Unchanged from Admission Past Medical History: Unchanged from Admission Objective Active Medications: Albuterol/Ipratropium (Duoneb (Albuterol 2.5 Mg/Ipratropium 0.5 Mg)) 1 neb INH Q4H PRN PRN Reason: SOB/WHEEZING Aspirin (Aspirin 81 Mg Chew Tab*) 81 mg PO QPM [facility] Last Admin: 10/27/18 18:56 Dose: 81 mg Cyanocobalamin (Vitamin B12 Tab*) 1,000 mcg PO DAILY [facility] Last Admin: 10/28/18 09:24 Dose: 1,000 mcg Dextrose (D50w Syringe 50 Ml*) 12.5 gm IV PUSH .FOR FS < 60 - SS PRN PRN Reason: FS < 60 Digoxin (Lanoxin Tab*) 0.125 mg PO EVERY OTHER DAY [facility] Last Admin: 10/27/18 09:17 Dose: 0.125 mg Ferrous Sulfate (Ferrous Sulfate Tab*) 325 mg PO TID [facility] Last Admin: 10/28/18 14:55 Dose: 325 mg Furosemide (Lasix Tab*) 40 mg PO DAILY [facility] Heparin Sodium (Porcine) (Heparin Vial(*)) 5,000 units SUBCUT Q12HR [facility] Last Admin: 10/28/18 09:29 Dose: 5,000 units Metronidazole/Sodium Chloride (Flagyl 500 Mg Ivpb*) 500 mg in 100 mls @ 100 mls /hr IVPB Q8H [facility] Last Admin: 10/28/18 09:18 Dose: 100 mls/hr Cefazolin Sodium/Dextrose (Kefzol 2 Gm Premix In Ors(*)) 2 gm in 50 mls @ 100 mls/hr IVPB Q8H [facility] Last Admin: 10/28/18 10:53 Dose: 100 mls/hr Insulin Glargine (Lantus(*)) 40 units SUBCUT Q12HR [facility] Last Admin: 10/28/18 09:29 Dose: 40 unit Insulin Human Lispro (Humalog*) 0 units SUBCUT ACHS [facility]; Protocol Last Admin: 10/28/18 15:12 Dose: Not Given Metoprolol Tartrate (Lopressor Tab*) 25 mg PO BID [facility] Last Admin: 10/28/18 09:24 Dose: 25 mg Mometasone Furoate/Formoterol Fumar (Dulera 100/5 Mdi*) 1 puff INH BID [facility] Last Admin: 10/28/18 07:49 Dose: 1 puff Pantoprazole Sodium (Protonix Tab*) 40 mg PO DAILY [facility] Last Admin: 10/28/18 09:24 Dose: 40 mg Spironolactone (Aldactone Tab*) 25 mg PO BEDTIME [facility] Tamsulosin HCl (Flomax Cap*) 0.4 mg PO BEDTIME [facility] Last Admin: 10/27/18 21:19 Dose: 0.4 mg Vital Signs - 8 hr 10/28/18 10/28/18 10/28/18 07:51 10:09 10:10 Temperature Pulse Rate 70 Respiratory 14 14 14 Rate Blood Pressure (mmHg) O2 Sat by Pulse 98 Oximetry 10/28/18 11:44 Temperature 99.3 F Pulse Rate 76 Respiratory 18 Rate Blood Pressure 133/50 (mmHg) O2 Sat by Pulse 99 Oximetry Oxygen Devices in Use Now: Nasal Cannula Appearance: Patient is a 63yo male who appears stated age and is sitting in the bed in [facility]. Eyes: No Scleral Icterus, PERRLA Ears/Nose/Mouth/Throat: NL Teeth, Lips, Gums, Clear Oropharnyx, Mucous Membranes Moist Neck: NL Appearance and Movements; NL JVP, Trachea Midline Respiratory: Symmetrical Chest Expansion and Respiratory Effort, Clear to Auscultation Cardiovascular: NL Sounds; No Murmurs; No JVD, RRR, No Edema Abdominal: NL Sounds; No Tenderness; No Distention, No Hepatosplenomegaly Lymphatic: No Cervical Adenopathy Extremities: No Clubbing, Cyanosis, - - Eschar on heel of left foot with continued recession of erythema. Skin: No Nodules or Sclerosis Neurological: Alert and Oriented x 3, NL Sensation, NL Muscle Strength and Tone , - - Peripheral Neuropathy. - Nutrition: Malnutrition Diagnosis/Plan Malnutrition Assessment by Registered Dietitian: Malnutrition Assessment Clinical Characteristics Chronic,Moderate Malnutrition Assessment: - wt loss 13.6% in past three months Criteria - poor po intake at [facility] meeting <75% EEE x > 1 month Malnutrition Assessment: 1. continue consistent carb diet; follow FS Interventions results 2. suggest recheck A1c, given pt's significant wt loss and poor appetite since Jul 2018 3. Glucerna Shake daily at 3pm (add'l 220 kcals , 10 g prot) 4. pt declined offer for snacks, but aware that peanut butter and other sandwiches are available to him as desired; he will request as needed Malnutrition Assessment: Goals 1. adequate po intake to promote ulcer healing and maintain lean body mass without add'l wt gain 2. ulcers ot bilat feet will show evidence of healing and no evidence of new pressure-related skin breakdown 3. glycemic control will improve/stabilize; without hypo/hyperglycemia Result Diagrams: 10/28/18 06:11 10/28/18 06:11 Additional Lab and Data: Lab Results Microbiology and Other Data: Microbiology 10/26/18 00:01 Nasal Screen MRSA (PCR) - Final Nasal Mrsa Not Detected Assess/Plan/Problems-Billing Assessment: Patient is a 63yo male with a PMH for HFrEF, COPD, DM II, LUANA, GAEL, and chronic osteomyelitis of the feet who was sent to the hospital from the wound clinic for new left heel wound and was admitted for concern for new osteomyelitis/ cellulitis. - Patient Problems (1) Diabetic foot ulcer Current Visit: Yes Status: Acute Code(s): E11.621 - TYPE 2 DIABETES MELLITUS WITH FOOT ULCER; L97.509 - NON-PRESSURE CHRONIC ULCER OTH PRT UNSP FOOT W UNSP SEVERITY SNOMED Code(s): 046679456 Comment: - Diabetic foot ulcer, followed by wound clinic. Worsening erythema and concern for infection - ESR and CRP severely elevated. - MSSA on Wound Culture, Switch to Cefazolin Per ID, Appreciate Input - Wound consult appreciated, recommended Medihoney, Gauze, and Rolled Gauze. - Ortho consult appreciated. - MRI pending. - Blood cultures negative to date. - Pressure reduction (2) Lactic acid acidosis Current Visit: Yes Status: Acute Code(s): E87.2 - ACIDOSIS SNOMED Code(s) : 39285032 Comment: - Due to combination of foot infection and metformin with ELIZA - Improved with IV fluids - Hold Metformin - Resume Diuretics (3) Obesity hypoventilation syndrome Current Visit: Yes Status: Acute Code(s): E66.2 - MORBID (SEVERE) OBESITY WITH ALVEOLAR HYPOVENTILATION SNOMED Code(s): 775136316 Comment: - Continue Night BiPAP - Patient has lost 40 lbs in last several months intentionally. (4) Sepsis Current Visit: Yes Status: Acute Comment: - Resolved - Likely due to left foot ulcer. - blood culture negative. - Lactic Acidosis improved - Leukocytosis improved - No tachycardia, hypotension, or fever. (5) ELIZA (acute kidney injury) Current Visit: No Status: Acute Code(s): N17.9 - ACUTE KIDNEY FAILURE, UNSPECIFIED SNOMED Code(s): 14209147 Comment: - FeNa .8% - Granular casts without WBCs in urine. No recent offending medications patient can remember - Improved with fluids, Resume diuretics and monitor - Likely precipitated by infection and worsened by acidosis. - Back to Baseline which is CKD Stage 3. (6) Anemia Current Visit: No Status: Acute Code(s): D64.9 - ANEMIA, UNSPECIFIED SNOMED Code(s): 270483766 Comment: - Iron studies from last hospitalization suggestive of iron deficient (Iron sat 7%; Iron level 23) and low normal B12 - Continue oral iron and B12, may benefit from IV iron once infection controlled - May benefit from Colonoscopy and Endoscopy outpatient if respiratory status would tolerate. (7) Congestive heart failure Current Visit: No Status: Acute Priority: High Onset Date: 04/19/14 Code (s): I50.9 - HEART FAILURE, UNSPECIFIED SNOMED Code(s): 53704939 Comment: - Currently stable. - Resume Diuretics - Strict I/O and Daily weights. (8) Diabetes Current Visit: No Status: Acute Code(s): E11.9 - TYPE 2 DIABETES MELLITUS WITHOUT COMPLICATIONS SNOMED Code(s): 42047669 Comment: - Due to lactic acidosis hold metformin and linagliptin - Continue home dose insulin long acting, add sliding scale insulin and add scheduled mealtime insulin as needed. - Good Control, A1c 5.8%, will decrease Lantus. (9) HTN (hypertension) Current Visit: No Status: Acute Code(s): I10 - ESSENTIAL (PRIMARY) HYPERTENSION SNOMED Code(s): 94145838 Comment: - Normotensive, continue metoprolol at decreased dose. (10) Hypercapnic respiratory failure Current Visit: No Status: Acute Code(s): J96.92 - RESPIRATORY FAILURE, UNSPECIFIED WITH HYPERCAPNIA SNOMED Code(s): 889693095 Comment: - Chronic - Caused by obesity hypoventilation syndrome and COPD with chronic 2L O2 requirement at home - Bipap at night - HCO3 around baseline. (11) PAD (peripheral artery disease) Current Visit: No Status: Acute Code(s): I73.9 - PERIPHERAL VASCULAR DISEASE , UNSPECIFIED SNOMED Code(s): 577519783 Comment: - ANASTASIYA 07/19/18 revealed 0.83 on the right and 0.64 on the left, worsening when compared to 03/13/2012 - Continue aspirin 81 mg daily and Heparin 5000 u SQ. - At this time he is high risk for any vascular interventions due to renal failure. - Intervention may be needed if surgical intervention indicated for foot ulcer.. (12) DVT prophylaxis Current Visit: No Status: Acute Code(s): EMG7615 - SNOMED Code(s): 438293743 Comment: HSQ Status and Disposition: Inpatient for IV antibiotics and possible debridement or other more intensive intervention.
--- NOTE | 2018-10-28 16:34 | PN ---
Progress Note - Progress Note Date of Service: 10/28/18 SOAP: Subjective: [] Objective: [] Assessment: [] A/P 63 yo poorly controlled diabetic with likely osteo and left foot heel ulceration Plan: [] continue IV abx nad keep pressure off of ulcerated area MRI today
[2018-10-28] MEDS: Aspirin 81 mg CHEW TAB* 81 MG TAB.CHEW PO SCH (18:41)
[2018-10-28] MEDS: Spironolactone TAB* 25 MG PO SCH (21:48)
[2018-10-28] MEDS: Tamsulosin CAP* 0.4 MG PO SCH (21:49)
[2018-10-29] MEDS: metroNIDAZOLE IV 500 MG/100ML* 500 MG/100 ML BAG IVPB SCH ×2 (00:41→08:36)
[2018-10-29] MEDS: ceFAZolin 2 GM PREMIX in ORs 2 GM/50 ML BAG IVPB SCH ×3 (02:25→17:23)
[2018-10-29] MEDS ORDERED: Vancomycin Trough Check NOTE FOLLOW UP ONE (05:30)
[2018-10-29 07:20] LABS: BUN/Creatinine Ratio 10.7 (8-20); Calcium 7.9 mg/dL (8.6-10.3); EGFR African American 53.1 (>60); EGFR Non-African American 43.9 (>60); Magnesium 1.7 mg/dL (1.9-2.7); Potassium 3.5 mmol/L (3.5-5.0)
[2018-10-29 07:28] LABS: ABS Basophils 0 10^3/ul (0-0.2); ABS Eosinophils 0.6 10^3/ul (0-0.6); ABS Lymphocytes 1.4 10^3/ul (1.0-4.8); ABS Monocytes 0.4 10^3/ul (0-0.8); ABS Neutrophils 7.2 10^3/ul (1.5-7.7); ABS Nucleated RBC 0 10^3/ul; Eosinophil % 6.5 %; Hematocrit 25 % (42-52); Hemoglobin 7.4 g/dl (14.0-18.0); Lymphocyte % 14.5 %; Mean Corpuscular HGB Conc 30 g/dl (31-36); Mean Corpuscular Hemoglobin 22 pg (27-31); Mean Corpuscular Volume 75 fL (80-94); Mean Platelet Volume 7.6 fL (7.4-10.4); Nucleated Red Blood Cells % 0; Platelet Count 326 10^3/ul (150-450); Red Blood Count 3.33 10^6/ul (4.00-5.40); Red Cell Distribution Width 19 % (10.5-15); White Blood Count 9.7 10^3/ul (3.5-10.8)
[2018-10-29] MEDS: Insulin LISPRO* 1 UNITS UNIT SUBCUT SCH ×4 (08:25→21:15)
[2018-10-29] MEDS: Digoxin TAB* 0.125 MG PO SCH (08:28)
[2018-10-29] MEDS: Cyanocobalamin TAB* 500 MCG PO SCH (08:29)
[2018-10-29] MEDS: Pantoprazole TAB * 40 MG TAB PO SCH (08:29)
[2018-10-29] MEDS: Insulin GLARGINE(*) 1 UNITS UNIT SUBCUT SCH ×2 (08:29→21:13)
[2018-10-29] MEDS: Heparin VIAL(*) 5000 UNITS/ML VIAL (FIVE THOUSAND) SUBCUT SCH ×2 (08:29→21:10)
[2018-10-29] MEDS: Furosemide TAB* 40 MG PO SCH (08:29)
[2018-10-29] MEDS: Metoprolol Tartrate TAB* 25 MG PO SCH ×2 (08:29→21:10)
[2018-10-29] MEDS: Ferrous Sulfate TAB* 325 MG PO SCH ×3 (08:29→21:10)
[2018-10-29] MEDS ORDERED: Magnesium Sulfate 2 GM IV* 2 GM/50 ML BAG IVPB ONE (09:00)
[2018-10-29] MEDS: Mometasone/Formoter 100/5 MDI INH SCH ×2 (09:40→19:50)
--- NOTE | 2018-10-29 11:10 | PN ---
Progress Note - Progress Note Date of Service: 10/29/18 Note: Discussed case with Dr Gomez who will assume care.
--- NOTE | 2018-10-29 12:59 | PN ---
Subjective Date of Service: 10/29/18 Interval History: Pt reports he feels well today. He denies dizziness, sob, CP. 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 Denies any blood or melena in stool. Reports good appetite, No fever or chills. Family History: Unchanged from Admission Social History: Unchanged from Admission Past Medical History: Unchanged from Admission Objective Active Medications: Albuterol/Ipratropium (Duoneb (Albuterol 2.5 Mg/Ipratropium 0.5 Mg)) 1 neb INH Q4H PRN PRN Reason: SOB/WHEEZING Aspirin (Aspirin 81 Mg Chew Tab*) 81 mg PO QPM [facility] Last Admin: 10/28/18 18:41 Dose: 81 mg Cyanocobalamin (Vitamin B12 Tab*) 1,000 mcg PO DAILY [facility] Last Admin: 10/29/18 08:29 Dose: 1,000 mcg Dextrose (D50w Syringe 50 Ml*) 12.5 gm IV PUSH .FOR FS < 60 - SS PRN PRN Reason: FS < 60 Digoxin (Lanoxin Tab*) 0.125 mg PO EVERY OTHER DAY [facility] Last Admin: 10/29/18 08:28 Dose: 0.125 mg Ferrous Sulfate (Ferrous Sulfate Tab*) 325 mg PO TID [facility] Last Admin: 10/29/18 08:29 Dose: 325 mg Furosemide (Lasix Tab*) 40 mg PO DAILY [facility] Last Admin: 10/29/18 08:29 Dose: 40 mg Heparin Sodium (Porcine) (Heparin Vial(*)) 5,000 units SUBCUT Q12HR [facility] Last Admin: 10/29/18 08:29 Dose: 5,000 units Metronidazole/Sodium Chloride (Flagyl 500 Mg Ivpb*) 500 mg in 100 mls @ 100 mls /hr IVPB Q8H [facility] Last Admin: 10/29/18 08:36 Dose: 100 mls/hr Cefazolin Sodium/Dextrose (Kefzol 2 Gm Premix In Ors(*)) 2 gm in 50 mls @ 100 mls/hr IVPB Q8H [facility] Last Admin: 10/29/18 10:20 Dose: 100 mls/hr Insulin Glargine (Lantus(*)) 35 units SUBCUT Q12HR [facility] Last Admin: 10/29/18 08:29 Dose: 35 units Insulin Human Lispro (Humalog*) 0 units SUBCUT ACHS [facility]; Protocol Last Admin: 10/29/18 12:27 Dose: Not Given Metoprolol Tartrate (Lopressor Tab*) 25 mg PO BID [facility] Last Admin: 10/29/18 08:29 Dose: 25 mg Mometasone Furoate/Formoterol Fumar (Dulera 100/5 Mdi*) 1 puff INH BID [facility] Last Admin: 10/29/18 09:40 Dose: 1 puff Pantoprazole Sodium (Protonix Tab*) 40 mg PO DAILY [facility] Last Admin: 10/29/18 08:29 Dose: 40 mg Spironolactone (Aldactone Tab*) 25 mg PO BEDTIME [facility] Last Admin: 10/28/18 21:48 Dose: 25 mg Tamsulosin HCl (Flomax Cap*) 0.4 mg PO BEDTIME [facility] Last Admin: 10/28/18 21:49 Dose: 0.4 mg Vital Signs - 8 hr 10/29/18 10/29/18 07:41 09:41 Temperature 97.4 F Pulse Rate 67 68 Respiratory 20 18 Rate Blood Pressure 144/61 (mmHg) O2 Sat by Pulse 99 95 Oximetry Oxygen Devices in Use Now: Nasal Cannula Appearance: 63 yo chronically ill male A+O x3 in NAD Eyes: No Scleral Icterus, PERRLA Respiratory: Symmetrical Chest Expansion and Respiratory Effort, Clear to Auscultation Cardiovascular: NL Sounds; No Murmurs; No JVD, RRR Abdominal: NL Sounds; No Tenderness; No Distention, - - obese Neurological: Alert and Oriented x 3 Lines/Tubes/Other Access: Clean, Dry and Intact Peripheral IV Nutrition: Taking PO's - Nutrition: Malnutrition Diagnosis/Plan Malnutrition Assessment by Registered Dietitian: Malnutrition Assessment Clinical Characteristics Chronic,Moderate Malnutrition Assessment: - wt loss 13.6% in past three months Criteria - poor po intake at [facility] meeting <75% EEE x > 1 month Malnutrition Assessment: 1. continue consistent carb diet; follow FS Interventions results 2. suggest recheck A1c, given pt's significant wt loss and poor appetite since Jul 2018 3. Glucerna Shake daily at 3pm (add'l 220 kcals , 10 g prot) 4. pt declined offer for snacks, but aware that peanut butter and other sandwiches are available to him as desired; he will request as needed Malnutrition Assessment: Goals 1. adequate po intake to promote ulcer healing and maintain lean body mass without add'l wt gain 2. ulcers ot bilat feet will show evidence of healing and no evidence of new pressure-related skin breakdown 3. glycemic control will improve/stabilize; without hypo/hyperglycemia Result Diagrams: 10/29/18 06:13 10/29/18 06:13 Additional Lab and Data: Lab Results Microbiology and Other Data: Microbiology 10/26/18 00:01 Nasal Screen MRSA (PCR) - Final Nasal Mrsa Not Detected Assess/Plan/Problems-Billing Assessment: Patient is a 63yo male with a PMH for HFrEF, COPD, DM II, LUANA, GAEL, and chronic osteomyelitis of the feet who was sent to the hospital from the wound clinic for new left heel wound and was admitted for concern for new osteomyelitis/ cellulitis. - Patient Problems (1) Sepsis Comment: - Resolved - Likely due to left foot ulcer - blood culture negative. - Lactic Acidosis improved - Leukocytosis improved - No tachycardia, hypotension, or fever. (2) Diabetic foot ulcer Comment: - Diabetic foot ulcer, followed by wound clinic. Worsening erythema and concern for infection - ESR and CRP severely elevated. - MSSA on Wound Culture, Switch to Cefazolin Per ID, Appreciate Input - Wound consult appreciated, recommended Medihoney, Gauze, and Rolled Gauze. - Ortho consult appreciated. - MRI not shoing osteo - Blood cultures negative to date. - Pressure reduction (3) Lactic acid acidosis Comment: - Due to combination of foot infection and metformin with ELIZA - Improved with IV fluids - Hold Metformin - Resume Diuretics (4) Obesity hypoventilation syndrome Comment: - Continue Night BiPAP - Patient has lost 40 lbs in last several months intentionally. (5) ELIZA (acute kidney injury) Comment: - FeNa .8% - Granular casts without WBCs in urine. No recent offending medications patient can remember - Improved with fluids, Resume diuretics and monitor - Likely precipitated by infection and worsened by acidosis. - Back to Baseline which is CKD Stage 3. (6) Anemia Comment: - Iron studies from last hospitalization suggestive of iron deficient (Iron sat 7%; Iron level 23) and low normal B12 - Continue oral iron and B12, may benefit from IV iron once infection controlled - May benefit from Colonoscopy and Endoscopy outpatient if respiratory status would tolerate. (7) Congestive heart failure Comment: - Currently stable. - Resume Diuretics - Strict I/O and Daily weights. (8) Diabetes Comment: - Due to lactic acidosis hold metformin and linagliptin - Continue sliding scale insulin - Good Control, A1c 5.8%, will decrease Lantus further d/t low BG this am (9) HTN (hypertension) Comment: - Normotensive, continue metoprolol at decreased dose. (10) Hypercapnic respiratory failure Comment: - Chronic - Caused by obesity hypoventilation syndrome and COPD with chronic 2L O2 requirement at home - Bipap at night - HCO3 around baseline. (11) DVT prophylaxis Comment: HSQ Status and Disposition: Inpatient for IV antibiotics and possible debridement or other more intensive intervention.
--- NOTE | 2018-10-29 15:36 | CONS ---
CONSULTATION REPORT: DATE OF CONSULT: 10/29/18 REQUESTING PROVIDER: EDWIGE Gomez CONSULTING SERVICE: Infectious Disease. REASON FOR CONSULT: Left foot infection. IMPRESSION: 1. Left heel ulcer pressure related with cellulitis and infective myositis. Wound culture grew methicillin-sensitive Staphylococcus aureus. No osteomyelitis by MRI. 2. Acute kidney injury. 3. Morbid obesity. 4. Type 2 diabetes mellitus. 5. PENICILLIN allergy, rash as a child, tolerating Ancef well. RECOMMENDATIONS: We will continue Ancef 2 g IV every 8 hours and stop Flagyl tomorrow. Follow his foot and its recovery here to decide on a time and to switch to an oral antibiotic. If he is not making continued progress, we may plan on a prolonged IV therapy. HISTORY OF PRESENT ILLNESS: This 63-year-old diabetic man with morbid obesity, admitted with left heel ulcer with cellulitis. The ulcer had been there couple of weeks. We find at the wound clinic, the redness was getting worse, so they send him here. His white count was 16,000. He was started on broad-spectrum antibiotics. I discussed the case yesterday with EDWIGE Gomez with a positive Staph aureus culture from the heel which was methicillin sensitive. We changed him from vancomycin to Ancef. He is continued on Flagyl. Redness is improving. He has no pain. There is no drainage. MRI showed no osteomyelitis. There was myositis and cellulitis. PAST MEDICAL HISTORY: 1. Morbid obesity. 2. Type 2 diabetes mellitus. 3. Systolic congestive heart failure, ejection fraction 40% to 45%. 4. COPD. 5. Chronic hypoxic respiratory failure. 6. Chronic kidney disease. 7. Hypertension. 8. Anemia. 9. Obesity hypoventilation syndrome. 10. Moderate to severe pulmonary hypertension. 11. Chronic back pain. 12. Depression. MEDICATIONS: 1. Aspirin. 2. Cyanocobalamin. 3. Digoxin. 4. Ferrous sulfate. 5. Furosemide. 6. Heparin subcutaneous injection. 7. Insulin glargine. 8. Cefazolin 2 g IV every 8 hours. 9. Flagyl 500 mg every 8 hours. 10. Pantoprazole. 11. Spironolactone. 12. Tamsulosin. ALLERGIES: PENICILLIN, rash as a child. FAMILY HISTORY: No recurrent infections. SOCIAL HISTORY: He has been living at [facility]. Nonsmoker. REVIEW OF SYSTEMS: All negative except as noted above to a 14-point review. PHYSICAL EXAM: Vital Signs: Temperature 36, heart rate 70, respiratory rate 20 , blood pressure 140/61, oxygen saturation 99% on 1 L. In general, he is awake , not in distress. Neurologic: He is oriented x3, follows all commands. HEENT : There is no conjunctival hemorrhage. Oropharynx without lesions. Neck: Neck is supple without mass. Heart is regular rate and rhythm without murmurs, rubs, or gallops. Lungs are clear to auscultation bilaterally. Abdomen: Soft, nontender, nondistended. There are bowel sounds present. Skin: There is no rash or splinter hemorrhage. Musculoskeletal: Left heel large eschar with surrounding mild erythema. There is no drainage or fluctuance. No tenderness to palpation. DIAGNOSTIC STUDIES/LAB DATA: White blood cell count 9; hemoglobin 7; MCV is 75 ; platelets 326; creatinine 1.5, down from 2.2. Please see impressions and recommendations outlined above. Thanks for asking me to see Mr. Thapa in consultation. [id number]/[facility] #: [id number] TITUS
--- NOTE | 2018-10-29 17:06 | PN ---
Progress Note - Progress Note Date of Service: 10/29/18 Note: I saw Efra today. I know him well from his prior bilateral ankle and foot ulcers. He reports that his left heel ulcer developed approximately 2 weeks ago. On exam, he does have an inferior left heel ulcer with an eschar in it. Minimal surrounding erythema. No purulence. No fluctuance. I reviewed his MRI which does not show any evidence of deep infection or osteomyelitis. Efra has developed a new left heel ulcer. The etiology is likely too much pressure on the heel in the setting of neuropathy. We discussed the importance of keeping pressure off the heel at all times, and he was doing this well when I saw him today with a pillow under the calf. I agree with antibiotics as guided by infectious diseases. Plan for wound care. Robert Gomez MD
[2018-10-29] MEDS: Aspirin 81 mg CHEW TAB* 81 MG TAB.CHEW PO SCH (17:23)
[2018-10-29] MEDS: Tamsulosin CAP* 0.4 MG PO SCH (21:10)
[2018-10-29] MEDS: Spironolactone TAB* 25 MG PO SCH (21:10)
[2018-10-30] MEDS: ceFAZolin 2 GM PREMIX in ORs 2 GM/50 ML BAG IVPB SCH ×3 (02:09→16:51)
[2018-10-30 06:57] LABS: Calcium 7.9 mg/dL (8.6-10.3); EGFR African American 56.8 (>60); Potassium 3.5 mmol/L (3.5-5.0)
[2018-10-30 07:07] LABS: ABS Basophils 0 10^3/ul (0-0.2); ABS Eosinophils 0.4 10^3/ul (0-0.6); ABS Lymphocytes 1.2 10^3/ul (1.0-4.8); ABS Monocytes 0.3 10^3/ul (0-0.8); ABS Neutrophils 6.6 10^3/ul (1.5-7.7); ABS Nucleated RBC 0 10^3/ul; Eosinophil % 4.5 %; Hematocrit 29 % (42-52); Hemoglobin 8.8 g/dl (14.0-18.0); Lymphocyte % 13.6 %; Mean Corpuscular HGB Conc 31 g/dl (31-36); Mean Corpuscular Hemoglobin 23 pg (27-31); Mean Corpuscular Volume 75 fL (80-94); Mean Platelet Volume 7.4 fL (7.4-10.4); Nucleated Red Blood Cells % 0.1; Platelet Count 282 10^3/ul (150-450); Red Blood Count 3.82 10^6/ul (4.00-5.40); Red Cell Distribution Width 19 % (10.5-15); White Blood Count 8.5 10^3/ul (3.5-10.8)
[2018-10-30] MEDS: Mometasone/Formoter 100/5 MDI INH SCH ×2 (07:17→19:49)
[2018-10-30] MEDS: Heparin VIAL(*) 5000 UNITS/ML VIAL (FIVE THOUSAND) SUBCUT SCH ×2 (09:29→20:45)
[2018-10-30] MEDS: Pantoprazole TAB * 40 MG TAB PO SCH (09:29)
[2018-10-30] MEDS: Metoprolol Tartrate TAB* 25 MG PO SCH ×2 (09:30→20:46)
[2018-10-30] MEDS: Insulin LISPRO* 1 UNITS UNIT SUBCUT SCH ×4 (09:30→21:03)
[2018-10-30] MEDS: Ferrous Sulfate TAB* 325 MG PO SCH ×3 (09:30→20:46)
[2018-10-30] MEDS: Cyanocobalamin TAB* 500 MCG PO SCH (09:30)
[2018-10-30] MEDS: Furosemide TAB* 40 MG PO SCH (09:30)
[2018-10-30] MEDS: Insulin GLARGINE(*) 1 UNITS UNIT SUBCUT SCH ×2 (09:31→21:03)
[2018-10-30] MEDS: Aspirin 81 mg CHEW TAB* 81 MG TAB.CHEW PO SCH (16:51)
--- NOTE | 2018-10-30 17:08 | PN ---
Subjective Date of Service: 10/30/18 Interval History: Pt reports "I feel fine". He denies any complaints. He denies fever/chills. Denies pain. Reports good appetite. Family History: Unchanged from Admission Social History: Unchanged from Admission Past Medical History: Unchanged from Admission Objective Active Medications: Albuterol/Ipratropium (Duoneb (Albuterol 2.5 Mg/Ipratropium 0.5 Mg)) 1 neb INH Q4H PRN PRN Reason: SOB/WHEEZING Aspirin (Aspirin 81 Mg Chew Tab*) 81 mg PO QPM [facility] Last Admin: 10/30/18 16:51 Dose: 81 mg Cyanocobalamin (Vitamin B12 Tab*) 1,000 mcg PO DAILY [facility] Last Admin: 10/30/18 09:30 Dose: 1,000 mcg Dextrose (D50w Syringe 50 Ml*) 12.5 gm IV PUSH .FOR FS < 60 - SS PRN PRN Reason: FS < 60 Digoxin (Lanoxin Tab*) 0.125 mg PO EVERY OTHER DAY [facility] Last Admin: 10/29/18 08:28 Dose: 0.125 mg Ferrous Sulfate (Ferrous Sulfate Tab*) 325 mg PO TID [facility] Last Admin: 10/30/18 13:07 Dose: 325 mg Furosemide (Lasix Tab*) 40 mg PO DAILY [facility] Last Admin: 10/30/18 09:30 Dose: 40 mg Heparin Sodium (Porcine) (Heparin Vial(*)) 5,000 units SUBCUT Q12HR [facility] Last Admin: 10/30/18 09:29 Dose: 5,000 units Cefazolin Sodium/Dextrose (Kefzol 2 Gm Premix In Ors(*)) 2 gm in 50 mls @ 100 mls/hr IVPB Q8H [facility] Last Admin: 10/30/18 16:51 Dose: 100 mls/hr Insulin Glargine (Lantus(*)) 25 units SUBCUT Q12HR [facility] Last Admin: 10/30/18 09:31 Dose: 25 units Insulin Human Lispro (Humalog*) 0 units SUBCUT ACHS [facility]; Protocol Last Admin: 10/30/18 16:51 Dose: 3 units Metoprolol Tartrate (Lopressor Tab*) 25 mg PO BID [facility] Last Admin: 10/30/18 09:30 Dose: 25 mg Mometasone Furoate/Formoterol Fumar (Dulera 100/5 Mdi*) 1 puff INH BID [facility] Last Admin: 10/30/18 07:17 Dose: 1 puff Pantoprazole Sodium (Protonix Tab*) 40 mg PO DAILY [facility] Last Admin: 10/30/18 09:29 Dose: 40 mg Spironolactone (Aldactone Tab*) 25 mg PO BEDTIME [facility] Last Admin: 10/29/18 21:10 Dose: 25 mg Tamsulosin HCl (Flomax Cap*) 0.4 mg PO BEDTIME [facility] Last Admin: 10/29/18 21:10 Dose: 0.4 mg Vital Signs - 8 hr 10/30/18 11:25 Temperature 98.3 F Pulse Rate 77 Respiratory 22 Rate Blood Pressure 131/60 (mmHg) O2 Sat by Pulse 97 Oximetry Oxygen Devices in Use Now: Nasal Cannula Appearance: chronically ill appearing male laying in bed watching TV in NAD, A+ O x3 Eyes: No Scleral Icterus Respiratory: Symmetrical Chest Expansion and Respiratory Effort, Clear to Auscultation Cardiovascular: NL Sounds; No Murmurs; No JVD, RRR Abdominal: NL Sounds; No Tenderness; No Distention, - - obese Extremities: - - dressing CD+I LE Neurological: Alert and Oriented x 3 Lines/Tubes/Other Access: Clean, Dry and Intact Peripheral IV Nutrition: Taking PO's - Nutrition: Malnutrition Diagnosis/Plan Malnutrition Assessment by Registered Dietitian: Malnutrition Assessment Clinical Characteristics Chronic,Moderate Malnutrition Assessment: - wt loss 13.6% in past three months Criteria - poor po intake at [facility] meeting <75% EEE x > 1 month Malnutrition Assessment: 1. continue consistent carb diet; follow FS Interventions results 2. suggest recheck A1c, given pt's significant wt loss and poor appetite since Jul 2018 3. Glucerna Shake daily at 3pm (add'l 220 kcals , 10 g prot) 4. pt declined offer for snacks, but aware that peanut butter and other sandwiches are available to him as desired; he will request as needed Malnutrition Assessment: Goals 1. adequate po intake to promote ulcer healing and maintain lean body mass without add'l wt gain 2. ulcers ot bilat feet will show evidence of healing and no evidence of new pressure-related skin breakdown 3. glycemic control will improve/stabilize; without hypo/hyperglycemia Result Diagrams: 10/30/18 06:36 10/30/18 06:35 Additional Lab and Data: Lab Results Microbiology and Other Data: Microbiology 10/26/18 00:01 Nasal Screen MRSA (PCR) - Final Nasal Mrsa Not Detected Assess/Plan/Problems-Billing Assessment: Patient is a 63yo male with a PMH for HFrEF, COPD, DM II, LUANA, GAEL, and chronic osteomyelitis of the feet who was sent to the hospital from the wound clinic for new left heel wound and was admitted for concern for new osteomyelitis/ cellulitis. - Patient Problems (1) Sepsis Comment: - Resolved - Likely due to left foot ulcer - blood culture negative. - Lactic Acidosis resolved - Leukocytosis resolved (2) Diabetic foot ulcer Comment: - Diabetic foot ulcer, followed by wound clinic. Worsening erythema and concern for infection - appears to be cellulitis - ESR and CRP elevated; repeat in am - MSSA on Wound Culture, Cefazolin Per ID, Appreciate Input - Wound consult appreciated, recommended Medihoney, Gauze, and Rolled Gauze. - Ortho consult appreciated. - MRI not showing osteo - Blood cultures negative to date. - Pressure reduction (3) Lactic acid acidosis Comment: - Due to combination of foot infection and metformin with ELIZA - Improved with IV fluids - Hold Metformin - Resume Diuretics (4) Obesity hypoventilation syndrome Comment: - Continue Night BiPAP - Patient has lost 40 lbs in last several months intentionally. (5) ELIZA (acute kidney injury) Comment: - FeNa pre-renal - Likely precipitated by infection - Back to Baseline which is CKD Stage 3. (6) Anemia Comment: - stable - Iron studies from last hospitalization suggestive of iron deficient (Iron sat 7%; Iron level 23) and low normal B12 - Continue oral iron and B12 - May benefit from Colonoscopy and Endoscopy outpatient if respiratory status would tolerate. (7) Congestive heart failure Comment: - Currently stable. - Resume Diuretics - Strict I/O and Daily weights. (8) Diabetes Comment: - Due to lactic acidosis hold metformin and linagliptin - Continue sliding scale insulin - Good Control, A1c 5.8%, will decrease Lantus further d/t low BG this am (9) HTN (hypertension) Comment: - Normotensive, continue metoprolol at decreased dose. (10) Hypercapnic respiratory failure Comment: - Chronic - Caused by obesity hypoventilation syndrome and COPD with chronic 2L O2 requirement at home - Bipap at night - HCO3 around baseline. (11) DVT prophylaxis Comment: HSQ Status and Disposition: Inpatient for IV antibiotics
[2018-10-30] MEDS: Spironolactone TAB* 25 MG PO SCH (20:45)
[2018-10-30] MEDS: Tamsulosin CAP* 0.4 MG PO SCH (20:45)
[2018-10-31] MEDS: ceFAZolin 2 GM PREMIX in ORs 2 GM/50 ML BAG IVPB SCH ×3 (02:21→18:04)
[2018-10-31 07:36] LABS: BUN/Creatinine Ratio 8.6 (8-20); C Reactive Protein 73.8 mg/L (<8.01); Calcium 8.1 mg/dL (8.6-10.3); EGFR African American 56.4 (>60); EGFR Non-African American 46.6 (>60); Potassium 3.4 mmol/L (3.5-5.0)
[2018-10-31] MEDS: Mometasone/Formoter 100/5 MDI INH SCH ×2 (08:21→20:24)
[2018-10-31] MEDS: Cyanocobalamin TAB* 500 MCG PO SCH (09:44)
[2018-10-31] MEDS: Insulin GLARGINE(*) 1 UNITS UNIT SUBCUT SCH ×2 (09:44→21:06)
[2018-10-31] MEDS: Pantoprazole TAB * 40 MG TAB PO SCH (09:44)
[2018-10-31] MEDS: Insulin LISPRO* 1 UNITS UNIT SUBCUT SCH ×4 (09:44→21:06)
[2018-10-31] MEDS: Metoprolol Tartrate TAB* 25 MG PO SCH ×2 (09:44→21:05)
[2018-10-31] MEDS: Digoxin TAB* 0.125 MG PO SCH (09:45)
[2018-10-31] MEDS: Ferrous Sulfate TAB* 325 MG PO SCH ×3 (09:45→21:04)
[2018-10-31] MEDS: Furosemide TAB* 40 MG PO SCH (09:45)
[2018-10-31] MEDS: Heparin VIAL(*) 5000 UNITS/ML VIAL (FIVE THOUSAND) SUBCUT SCH ×2 (09:47→21:06)
--- NOTE | 2018-10-31 12:07 | PN ---
Subjective Date of Service: 10/31/18 Interval History: Today he reports he "feels fine". Refuses going transfer to [facility]. Denies any fever, chills, diarrhea, sob/CP. Reports good appetite. Family History: Unchanged from Admission Social History: Unchanged from Admission Past Medical History: Unchanged from Admission Objective Active Medications: Albuterol/Ipratropium (Duoneb (Albuterol 2.5 Mg/Ipratropium 0.5 Mg)) 1 neb INH Q4H PRN PRN Reason: SOB/WHEEZING Aspirin (Aspirin 81 Mg Chew Tab*) 81 mg PO QPM [facility] Last Admin: 10/30/18 16:51 Dose: 81 mg Cyanocobalamin (Vitamin B12 Tab*) 1,000 mcg PO DAILY [facility] Last Admin: 10/31/18 09:44 Dose: 1,000 mcg Dextrose (D50w Syringe 50 Ml*) 12.5 gm IV PUSH .FOR FS < 60 - SS PRN PRN Reason: FS < 60 Digoxin (Lanoxin Tab*) 0.125 mg PO EVERY OTHER DAY [facility] Last Admin: 10/31/18 09:45 Dose: 0.125 mg Ferrous Sulfate (Ferrous Sulfate Tab*) 325 mg PO TID [facility] Last Admin: 10/31/18 09:45 Dose: 325 mg Furosemide (Lasix Tab*) 40 mg PO DAILY [facility] Last Admin: 10/31/18 09:45 Dose: 40 mg Heparin Sodium (Porcine) (Heparin Vial(*)) 5,000 units SUBCUT Q12HR [facility] Last Admin: 10/31/18 09:47 Dose: 5,000 units Cefazolin Sodium/Dextrose (Kefzol 2 Gm Premix In Ors(*)) 2 gm in 50 mls @ 100 mls/hr IVPB Q8H [facility] Last Admin: 10/31/18 09:54 Dose: 100 mls/hr Insulin Glargine (Lantus(*)) 25 units SUBCUT Q12HR [facility] Last Admin: 10/31/18 09:44 Dose: 25 units Insulin Human Lispro (Humalog*) 0 units SUBCUT ACHS [facility]; Protocol Last Admin: 10/31/18 09:44 Dose: 2 units Metoprolol Tartrate (Lopressor Tab*) 25 mg PO BID [facility] Last Admin: 10/31/18 09:44 Dose: 25 mg Mometasone Furoate/Formoterol Fumar (Dulera 100/5 Mdi*) 1 puff INH BID [facility] Last Admin: 10/31/18 08:21 Dose: 1 puff Pantoprazole Sodium (Protonix Tab*) 40 mg PO DAILY [facility] Last Admin: 10/31/18 09:44 Dose: 40 mg Spironolactone (Aldactone Tab*) 25 mg PO BEDTIME [facility] Last Admin: 10/30/18 20:45 Dose: 25 mg Tamsulosin HCl (Flomax Cap*) 0.4 mg PO BEDTIME [facility] Last Admin: 10/30/18 20:45 Dose: 0.4 mg Vital Signs - 8 hr 10/31/18 10/31/18 10/31/18 04:09 07:27 08:00 Temperature 96.9 F 98.1 F Pulse Rate 64 67 Respiratory 18 22 22 Rate Blood Pressure 132/60 143/61 (mmHg) O2 Sat by Pulse 97 98 Oximetry 10/31/18 09:45 Temperature Pulse Rate 80 Respiratory Rate Blood Pressure (mmHg) O2 Sat by Pulse Oximetry Oxygen Devices in Use Now: Nasal Cannula Appearance: chronically ill 63 yo male sitting up on the side of the bed in NAD , A+O x3 Eyes: No Scleral Icterus, PERRLA Ears/Nose/Mouth/Throat: NL Teeth, Lips, Gums, Mucous Membranes Moist Neck: NL Appearance and Movements; NL JVP Respiratory: Symmetrical Chest Expansion and Respiratory Effort, Clear to Auscultation Cardiovascular: NL Sounds; No Murmurs; No JVD, RRR Abdominal: NL Sounds; No Tenderness; No Distention, - - obese Extremities: - - LLE - heel ulcer approx size of a quarter, mild erythema, no noted drainage or fluctuance noted Neurological: Alert and Oriented x 3 Lines/Tubes/Other Access: Clean, Dry and Intact Peripheral IV Nutrition: Taking PO's - Nutrition: Malnutrition Diagnosis/Plan Malnutrition Assessment by Registered Dietitian: Malnutrition Assessment Clinical Characteristics Chronic,Moderate Malnutrition Assessment: - wt loss 13.6% in past three months Criteria - poor po intake at [facility] meeting <75% EEE x > 1 month Malnutrition Assessment: 1. continue consistent carb diet; follow FS Interventions results 2. suggest recheck A1c, given pt's significant wt loss and poor appetite since Jul 2018 3. Glucerna Shake daily at 3pm (add'l 220 kcals , 10 g prot) 4. pt declined offer for snacks, but aware that peanut butter and other sandwiches are available to him as desired; he will request as needed Malnutrition Assessment: Goals 1. adequate po intake to promote ulcer healing and maintain lean body mass without add'l wt gain 2. ulcers ot bilat feet will show evidence of healing and no evidence of new pressure-related skin breakdown 3. glycemic control will improve/stabilize; without hypo/hyperglycemia Result Diagrams: 10/30/18 06:36 10/31/18 06:47 Additional Lab and Data: Lab Results Microbiology and Other Data: Microbiology 10/26/18 00:01 Nasal Screen MRSA (PCR) - Final Nasal Mrsa Not Detected Assess/Plan/Problems-Billing Assessment: Patient is a 63yo male with a PMH for HFrEF, COPD, DM II, LUANA, GAEL, and chronic osteomyelitis of the feet who was sent to the hospital from the wound clinic for new left heel wound and was admitted for concern for new osteomyelitis/ cellulitis. - Patient Problems (1) Sepsis Comment: - Resolved - Likely due to left foot ulcer - blood culture negative. - Lactic Acidosis resolved - Leukocytosis resolved (2) Diabetic foot ulcer Comment: - Diabetic foot ulcer. followed by wound clinic. Worsening erythema and concern for infection - appears to be cellulitis - CRP trending down - MSSA on Wound Culture, Cefazolin Per ID, Appreciate Input - recommends Ceftriaxone IV for two weeks; midline to be placed if he goes to [facility] - hold off on placing mideline until patient agrees to going to rehab (he is currently refusing) - per ID he could go to outpatient Infusion clinic if he had a safe discharge plan which the patient does not have at this time. - Wound consult appreciated, recommended Medihoney, Gauze, and Rolled Gauze. - Ortho consult appreciated- float the left heel - MRI not showing osteo - Blood cultures negative to date. - Pressure reduction (3) Lactic acid acidosis Comment: - Due to combination of foot infection and metformin with ELIZA - Resolved with IV fluids - Hold Metformin (4) Obesity hypoventilation syndrome Comment: - Continue Night BiPAP - Patient has lost 40 lbs in last several months intentionally. (5) ELIZA (acute kidney injury) Comment: - FeNa pre-renal - Likely precipitated by infection - Back to Baseline which is CKD Stage 3. (6) Anemia Comment: - stable - Iron studies from last hospitalization suggestive of iron deficient (Iron sat 7%; Iron level 23) and low normal B12 - Continue oral iron and B12 - May benefit from Colonoscopy and Endoscopy outpatient if respiratory status would tolerate. (7) Congestive heart failure Comment: - Currently stable. - Resume Diuretics - Strict I/O and Daily weights. (8) Diabetes Comment: - Due to lactic acidosis hold metformin and linagliptin - Continue sliding scale insulin - Good Control, A1c 5.8%, continue decreased dose of Lantus; BG stable this am (9) HTN (hypertension) Comment: - Normotensive, continue metoprolol at decreased dose. (10) Hypercapnic respiratory failure Comment: - Chronic - Caused by obesity hypoventilation syndrome and COPD with chronic 2L O2 requirement at home - Bipap at night - HCO3 around baseline. (11) DVT prophylaxis Comment: HSQ Status and Disposition: Inpatient for IV antibiotics. Pt was at [facility] prior to hospitalization - he has been wavering on going back to facility; I do not think he would be a safe DC back to [facility] as he will require daily IV abx for a few weeks per ID. Case management following.
--- NOTE | 2018-10-31 13:23 | PN ---
Progress Note - Progress Note Date of Service: 10/31/18 SOAP: Subjective: []Pt seen at bedside today. He has been floating his left heel with a pillow under his calf. Denies fever, chills, CP, SOB, nausea. Objective: []General: NAD LLE: L heel ulcer - quarter sized eschar with minimal surrounding erythema well within demarcated lines, no warmth, discharge or fluctuance. Assessment: [] Left heel ulcer Plan: [] Float the left heel, wound care, abx cefazolin 2g IV q 8 hr Temp Pulse Resp BP Pulse Ox 98.0 F 76 20 143/55 97 10/31/18 11:20 10/31/18 11:20 10/31/18 11:20 10/31/18 11:20 10/31/18 11:20 Laboratory Last Values WBC 8.5 10^3/ul (3.5-10.8) 10/30/18 06:36 RBC 3.82 10^6/ul (4.00-5.40) L 10/30/18 06:36 Hgb 8.8 g/dl (14.0-18.0) L 10/30/18 06:36 Hct 29 % (42-52) L 10/30/18 06:36 MCV 75 fL (80-94) L 10/30/18 06:36 MCH 23 pg (27-31) L 10/30/18 06:36 MCHC 31 g/dl (31-36) 10/30/18 06:36 RDW 19 % (10.5-15) H 10/30/18 06:36 Plt Count 282 10^3/ul (150-450) 10/30/18 06:36 MPV 7.4 fL (7.4-10.4) 10/30/18 06:36 Neut % (Auto) 77.3 % 10/30/18 06:36 Lymph % (Auto) 13.6 % 10/30/18 06:36 [place] % (Auto) 4.1 % 10/30/18 06:36 Eos % (Auto) 4.5 % 10/30/18 06:36 Baso % (Auto) 0.5 % 10/30/18 06:36 Absolute Neuts (auto) 6.6 10^3/ul (1.5-7.7) 10/30/18 06:36 Absolute Lymphs (auto) 1.2 10^3/ul (1.0-4.8) 10/30/18 06:36 Absolute Monos (auto) 0.3 10^3/ul (0-0.8) 10/30/18 06:36 Absolute Eos (auto) 0.4 10^3/ul (0-0.6) 10/30/18 06:36 Absolute Basos (auto) 0 10^3/ul (0-0.2) 10/30/18 06:36 Absolute Nucleated RBC 0 10^3/ul 10/30/18 06:36 Nucleated RBC % 0.1 10/30/18 06:36 ESR 120 mm/Hr (0-40) H 10/25/18 20:04 Sodium 141 mmol/L (135-145) 10/31/18 06:47 Potassium 3.4 mmol/L (3.5-5.0) L 10/31/18 06:47 Chloride 99 mmol/L (101-111) L 10/31/18 06:47 Carbon Dioxide 37 mmol/L (22-32) H 10/31/18 06:47 Anion Gap 5 mmol/L (2-11) 10/31/18 06:47 BUN 13 mg/dL (6-24) 10/31/18 06:47 Creatinine 1.51 mg/dL (0.67-1.17) H 10/31/18 06:47 Est GFR ( Amer) 56.4 (>60) 10/31/18 06:47 Est GFR (Non-Af Amer) 46.6 (>60) 10/31/18 06:47 BUN/Creatinine Ratio 8.6 (8-20) 10/31/18 06:47 Glucose 123 mg/dL (70-100) H 10/31/18 06:47 POC Glucose (mg/dL) 213 mg/dL (70-100) H 10/31/18 11:23 Hemoglobin A1c 5.8 % (4.0-5.6) H 10/26/18 03:04 Lactic Acid 1.4 mmol/L (0.5-2.0) 10/26/18 03:04 Calcium 8.1 mg/dL (8.6-10.3) L 10/31/18 06:47 Magnesium 1.7 mg/dL (1.9-2.7) L 10/29/18 06:13 Total Bilirubin 0.40 mg/dL (0.2-1.0) 10/25/18 20:04 AST 11 U/L (13-39) L 10/25/18 20:04 ALT 3 U/L (7-52) L 10/25/18 20:04 Alkaline Phosphatase 58 U/L (34-104) 10/25/18 20:04 C-Reactive Protein 73.80 mg/L (<8.01) H 10/31/18 06:47 Total Protein 8.1 g/dL (6.4-8.9) 10/25/18 20:04 Albumin 3.3 g/dL (3.2-5.2) 10/25/18 20:04 Globulin 4.8 g/dL (2-4) H 10/25/18 20:04 Albumin/Globulin Ratio 0.7 (1-3) L 10/25/18 20:04 Urine Color Yellow 10/26/18 09:40 Urine Appearance Clear 10/26/18 09:40 Urine pH 5.0 (5-9) 10/26/18 09:40 Ur Specific [place] 1.013 (1.010-1.030) 10/26/18 09:40 Urine Protein 2+(100 mg/dl) (Negative) A 10/26/18 09:40 Urine Ketones Negative (Negative) 10/26/18 09:40 Urine Blood 1+ (Negative) A 10/26/18 09:40 Urine Nitrate Negative (Negative) 10/26/18 09:40 Urine Bilirubin Negative (Negative) 10/26/18 09:40 Urine Urobilinogen Negative (Negative) 10/26/18 09:40 Ur Leukocyte Esterase Negative (Negative) 10/26/18 09:40 Urine WBC (Auto) Trace(0-5/hpf) (Absent) 10/26/18 09:40 Urine RBC (Auto) Trace(0-2/hpf) (Absent) 10/26/18 09:40 Ur Squamous Epith Cells Present (Absent) A 10/26/18 09:40 Urine Bacteria Absent (Absent) 10/26/18 09:40 Hyaline Casts Present (Absent) A 10/26/18 09:40 Granular Casts Present (Absent) A 10/26/18 09:40 Ur Creatinine Concen 111.68 mg/dL 10/26/18 09:40 U Sodium Concentration 53 mmol/L 10/26/18 09:40 Urine Glucose 1+(50 mg/dl) (Negative) A 10/26/18 09:40 Vancomycin Trough 24.1 mcg/mL 10/27/18 10:23 Random Vancomycin 28.6 mcg/mL 10/27/18 05:50 Digoxin 1.1 ng/ml (0.8-2.0) 10/26/18 03:04
[2018-10-31] MEDS: Aspirin 81 mg CHEW TAB* 81 MG TAB.CHEW PO SCH (18:04)
[2018-10-31] MEDS: Spironolactone TAB* 25 MG PO SCH (21:05)
[2018-10-31] MEDS: Tamsulosin CAP* 0.4 MG PO SCH (21:05)
[2018-11-01 06:29] LABS: ABS Basophils 0 10^3/ul (0-0.2); ABS Eosinophils 0.4 10^3/ul (0-0.6); ABS Lymphocytes 1.7 10^3/ul (1.0-4.8); ABS Monocytes 0.5 10^3/ul (0-0.8); ABS Neutrophils 7.6 10^3/ul (1.5-7.7); ABS Nucleated RBC 0 10^3/ul; Eosinophil % 4.1 %; Hematocrit 25 % (42-52); Hemoglobin 7.7 g/dl (14.0-18.0); Lymphocyte % 16.3 %; Mean Corpuscular HGB Conc 31 g/dl (31-36); Mean Corpuscular Hemoglobin 23 pg (27-31); Mean Corpuscular Volume 75 fL (80-94); Mean Platelet Volume 7.1 fL (7.4-10.4); Nucleated Red Blood Cells % 0; Platelet Count 362 10^3/ul (150-450); Red Blood Count 3.31 10^6/ul (4.00-5.40); Red Cell Distribution Width 19 % (10.5-15); White Blood Count 10.2 10^3/ul (3.5-10.8)
[2018-11-01 06:49] LABS: Calcium 8.3 mg/dL (8.6-10.3); EGFR African American 56.8 (>60); Potassium 3.4 mmol/L (3.5-5.0)
[2018-11-01] MEDS: Insulin LISPRO* 1 UNITS UNIT SUBCUT SCH ×4 (07:10→21:18)
[2018-11-01] MEDS: Mometasone/Formoter 100/5 MDI INH SCH ×2 (07:25→19:42)
[2018-11-01] MEDS: cefTRIAXone(*) 1 GM in NS 0.9% 50 ML* 50 ML IVPB SCH (09:25)
[2018-11-01] MEDS: Furosemide TAB* 40 MG PO SCH (09:30)
[2018-11-01] MEDS: Ferrous Sulfate TAB* 325 MG PO SCH ×3 (09:30→21:09)
[2018-11-01] MEDS: Pantoprazole TAB * 40 MG TAB PO SCH (09:30)
[2018-11-01] MEDS: Cyanocobalamin TAB* 500 MCG PO SCH (09:30)
[2018-11-01] MEDS: Metoprolol Tartrate TAB* 25 MG PO SCH ×2 (09:30→21:09)
[2018-11-01] MEDS: Insulin GLARGINE(*) 1 UNITS UNIT SUBCUT SCH ×2 (09:31→21:18)
[2018-11-01] MEDS: Heparin VIAL(*) 5000 UNITS/ML VIAL (FIVE THOUSAND) SUBCUT SCH ×2 (09:31→21:09)
--- NOTE | 2018-11-01 09:34 | PN ---
Subjective Date of Service: 11/01/18 Interval History: Efra is a 63 yo male, seen today at bedside. He is lying in bed, denies fever/ chills, CP, SOB. No acute concerns. He is awaiting a PICC line but may need to stay through Sunday, as there is not anyone available to insert a PICC today. Family History: Unchanged from Admission Social History: Unchanged from Admission Past Medical History: Unchanged from Admission Objective Active Medications: Albuterol/Ipratropium (Duoneb (Albuterol 2.5 Mg/Ipratropium 0.5 Mg)) 1 neb INH Q4H PRN PRN Reason: SOB/WHEEZING Aspirin (Aspirin 81 Mg Chew Tab*) 81 mg PO QPM [facility] Last Admin: 10/31/18 18:04 Dose: 81 mg Cyanocobalamin (Vitamin B12 Tab*) 1,000 mcg PO DAILY [facility] Last Admin: 11/01/18 09:30 Dose: 1,000 mcg Dextrose (D50w Syringe 50 Ml*) 12.5 gm IV PUSH .FOR FS < 60 - SS PRN PRN Reason: FS < 60 Digoxin (Lanoxin Tab*) 0.125 mg PO EVERY OTHER DAY [facility] Last Admin: 10/31/18 09:45 Dose: 0.125 mg Ferrous Sulfate (Ferrous Sulfate Tab*) 325 mg PO TID [facility] Last Admin: 11/01/18 09:30 Dose: 325 mg Furosemide (Lasix Tab*) 40 mg PO DAILY [facility] Last Admin: 11/01/18 09:30 Dose: 40 mg Heparin Sodium (Porcine) (Heparin Vial(*)) 5,000 units SUBCUT Q12HR [facility] Last Admin: 11/01/18 09:31 Dose: 5,000 units Ceftriaxone Sodium 1 gm/ (Sodium Chloride) 50 mls @ 200 mls/hr IVPB Q24H [facility] Last Admin: 11/01/18 09:25 Dose: 200 mls/hr Insulin Glargine (Lantus(*)) 25 units SUBCUT Q12HR [facility] Last Admin: 11/01/18 09:31 Dose: 25 units Insulin Human Lispro (Humalog*) 0 units SUBCUT ACHS [facility]; Protocol Last Admin: 11/01/18 07:10 Dose: Not Given Metoprolol Tartrate (Lopressor Tab*) 25 mg PO BID [facility] Last Admin: 11/01/18 09:30 Dose: 25 mg Mometasone Furoate/Formoterol Fumar (Dulera 100/5 Mdi*) 1 puff INH BID [facility] Last Admin: 11/01/18 07:25 Dose: 1 puff Pantoprazole Sodium (Protonix Tab*) 40 mg PO DAILY [facility] Last Admin: 11/01/18 09:30 Dose: 40 mg Spironolactone (Aldactone Tab*) 25 mg PO BEDTIME [facility] Last Admin: 10/31/18 21:05 Dose: 25 mg Tamsulosin HCl (Flomax Cap*) 0.4 mg PO BEDTIME [facility] Last Admin: 10/31/18 21:05 Dose: 0.4 mg Vital Signs - 8 hr 11/01/18 11/01/18 11/01/18 03:14 03:39 07:39 Temperature 98 F 97.8 F Pulse Rate 71 72 Respiratory 25 18 Rate Blood Pressure 139/59 145/59 (mmHg) O2 Sat by Pulse 98 91 Oximetry Oxygen Devices in Use Now: Nasal Cannula Appearance: 63 yo male, lying in bed, NAD, pleasant, interactive Eyes: No Scleral Icterus, PERRLA Ears/Nose/Mouth/Throat: Clear Oropharnyx, Mucous Membranes Moist Neck: NL Appearance and Movements; NL JVP Respiratory: Symmetrical Chest Expansion and Respiratory Effort, Clear to Auscultation Cardiovascular: NL Sounds; No Murmurs; No JVD, RRR Abdominal: NL Sounds; No Tenderness; No Distention Extremities: - - LLE with heel ulcer - eschar at wound base with serous drainage evident on dressing. Neurological: Alert and Oriented x 3, NL Muscle Strength and Tone Lines/Tubes/Other Access: Clean, Dry and Intact Peripheral IV Nutrition: Taking PO's - Nutrition: Malnutrition Diagnosis/Plan Malnutrition Assessment by Registered Dietitian: Malnutrition Assessment Clinical Characteristics Chronic,Moderate Malnutrition Assessment: - wt loss 13.6% in past three months Criteria - poor po intake at [facility] meeting <75% EEE x > 1 month Malnutrition Assessment: 1. continue consistent carb diet; follow FS Interventions results 2. suggest recheck A1c, given pt's significant wt loss and poor appetite since Jul 2018 3. Glucerna Shake daily at 3pm (add'l 220 kcals , 10 g prot) 4. pt declined offer for snacks, but aware that peanut butter and other sandwiches are available to him as desired; he will request as needed Malnutrition Assessment: Goals 1. adequate po intake to promote ulcer healing and maintain lean body mass without add'l wt gain 2. ulcers ot bilat feet will show evidence of healing and no evidence of new pressure-related skin breakdown 3. glycemic control will improve/stabilize; without hypo/hyperglycemia Result Diagrams: 11/01/18 06:04 11/01/18 06:04 Additional Lab and Data: Lab Results Microbiology and Other Data: Microbiology 10/26/18 00:01 Nasal Screen MRSA (PCR) - Final Nasal Mrsa Not Detected Assess/Plan/Problems-Billing Assessment: Mr. Thapa is a 63yo male with a PMH for HFrEF, COPD, DM II, LUANA, GAEL, and chronic osteomyelitis of the feet who was sent to the hospital from the wound clinic for new left heel wound and was admitted for concern for new osteomyelitis/cellulitis. - Patient Problems (1) Sepsis Comment: Resolved Likely due to left foot ulcer Blood culture negative Lactic acidosis, leukocytosis resolved. (2) Diabetic foot ulcer Code(s): E11.621 - TYPE 2 DIABETES MELLITUS WITH FOOT ULCER; L97.509 - NON- PRESSURE CHRONIC ULCER OTH PRT UNSP FOOT W UNSP SEVERITY Comment: Diabetic foot ulcer, followed by wound clinic. Presented with worsening erythema and concern for infection that appeared to be secondary to cellulitis CRP trending down, blood cultures negative to date. MSSA on wound culture, initially treated with cefazolin but now changed to ceftriaxone Appreciate ID input - recommends continuation of ceftriaxone IV for two weeks Needs PICC line prior to discharge back to [facility] (discharge to home not safe plan at this time). Wound consult appreciated, recommended Medihoney, Gauze, and Rolled Gauze. Ortho consult appreciated - float the left heel, encourage pressure reduction. MRI not showing osteo. (3) Lactic acid acidosis Code(s): E87.2 - ACIDOSIS Comment: Due to combination of foot infection and metformin with ELIZA Resolved with IV fluids Hold Metformin (4) Obesity hypoventilation syndrome Code(s): E66.2 - MORBID (SEVERE) OBESITY WITH ALVEOLAR HYPOVENTILATION Comment : Continue Night BiPAP Patient has lost 40 lbs in last several months intentionally. (5) ELIZA (acute kidney injury) Code(s): N17.9 - ACUTE KIDNEY FAILURE, UNSPECIFIED Comment: FeNa pre-renal Likely precipitated by infection Back to baseline, which is CKD Stage 3. (6) Anemia Code(s): D64.9 - ANEMIA, UNSPECIFIED Comment: Stable Iron studies from last hospitalization suggestive of iron deficiency (Iron sat 7 %; Iron level 23) and low normal B12 Continue oral iron and B12 May benefit from colonoscopy and endoscopy outpatient if respiratory status would tolerate. (7) Congestive heart failure Code(s): I50.9 - HEART FAILURE, UNSPECIFIED Comment: Currently stable Continue furosemide, spironolactone Strict I/O and daily weights. (8) Diabetes Code(s): E11.9 - TYPE 2 DIABETES MELLITUS WITHOUT COMPLICATIONS Comment: Due to lactic acidosis, hold metformin and linagliptin (may resume on discharge) Continue sliding scale insulin Good control, A1c 5.8%, continue decreased dose of Lantus (9) HTN (hypertension) Code(s): I10 - ESSENTIAL (PRIMARY) HYPERTENSION Comment: Acceptable control Continue metoprolol at decreased dose. (10) Hypercapnic respiratory failure Code(s): J96.92 - RESPIRATORY FAILURE, UNSPECIFIED WITH HYPERCAPNIA Comment: Chronic Caused by obesity hypoventilation syndrome and COPD with chronic 2L O2 requirement at home Bipap at night HCO3 around baseline. (11) DVT prophylaxis Comment: HSQ Status and Disposition: Inpatient for IV antibiotics. Plan for discharge to [facility], pending PICC line placement.
--- NOTE | 2018-11-01 16:19 | CONSULT ---
Consult Consult: Date of Service: 11/01/18 Requesting provider: Dr. Gomez Reason: Septic foot with known vasculopathy Focused HPI: Mr. Serrano is a 63-year-old man with a complicated medical history that includes type 2 diabetes, chronic obstructive pulmonary disease, morbid obesity, hypertension and mixed hyperlipidemia. The patient reports smoking for only 1 year up until 2002 but "not inhaling". I first met Mr. Serrano in my interventional radiology clinic when he was referred to me from the wound care center for a chronic left heel wound. At that time I advised angiography but the patient preferred to proceed with noninvasive wound care only. The patient reports that approximately 2 weeks before now he was discharged from the wound care center and his left heel wound was healed. On October 25 he return to the wound care center for routine follow-up and was determined to be a threat for sepsis and was transferred to the emergency department. He has been an inpatient since then. Independent of the patient's chronic wounds, he experiences limited walking ability mostly due to shortness of breath but also due to the lower extremity weakness he experiences. He is unable to lie flat for long periods of time but when he does he reports bilateral leg pain. He estimates he can walk no more than 10 feet at a time. PE: Selected Entries 11/01/18 11/01/18 11:45 15:02 Temperature 98.3 F Temperature Oral Source Pulse Rate 82 Respiratory 18 Rate Blood Pressure 137/59 (mmHg) Blood Pressure 77 Mean O2 Sat by Pulse 91 Oximetry NAD, AAO x 3 ALDO, EOMI RRR, S1 / S2 Mild dependent crackles are heard. More superiorly the lungs sound clear. 2+ pulses are palpated the bilateral common femoral arteries and bilateral popliteal arteries. The right dorsalis pedis arteries faintly palpable. I cannot palpate the right posterior tibial artery or the left pedal arteries. The heel wound is wrapped in sterile gauze. PMH: Endocrine/Hematology History: Reports: Hx Diabetes, Hx Anemia - TAKING IRON Cardiovascular History: Reports: Hx Congestive Heart Failure - Systolic HF, Hx Hypertension Denies: Hx Myocardial Infarction Respiratory History: Reports: Hx Chronic Obstructive Pulmonary Disease (COPD), Hx Pulmonary Edema, Hx Sleep Apnea GI History: Reports: Hx Hiatal Hernia - 25 years, Other GI Disorders - has some small gall stones- no issues History: Denies: Hx Dialysis, Hx Renal Disease Musculoskeletal History: Reports: Hx Arthritis - mild L4-L5, Other Musculoskeletal History - osteomyalgia bilateral foot Sensory History: Reports: Hx Cataracts, Hx Contacts or Glasses Denies: Hx Legally Blind, Hx Deafness, Hx Hearing Aid Opthamlomology History: Reports: Hx Cataracts, Hx Contacts or Glasses Denies: Hx Legally Blind Neurological History: Reports: Hx Nerve Disease - bilat neuropathy Psychiatric History: Reports: Hx Depression - Surgical History Surgery Procedure, Year, and Place: dental - teeth removed - sedated, cataracts Hx Anesthesia Reactions: No - Immunization History Date of Tetanus Vaccine: Unk Date of Influenza Vaccine: None Infectious Disease History: No Infectious Disease History: Denies: Traveled Outside the [place] in Last 30 Days - Family History Known Family History: Positive: Cardiac Disease, Hypertension, Diabetes - Social History Alcohol Use: None Hx Substance Use: No Substance Use Type: Reports: None Hx Tobacco Use: No Smoking Status (MU): Never Smoked Tobacco Amount Used/How Often: only smoked 2 years - never inhaled Have You Smoked in the Last Year: No Relevant Imaging: Patient Name: JAMIE SERRANO Medical Record#: [id number] Ordering Physician: Betzaida Martinez MD Acct.#: [id number] : 1955 Age: 63 Sex: M Location: [facility] Exam Date: 07/19/18909 ADM Status: ADM IN Order Information: VL ANK/BRACHIAL INDICES Accession Number: [id number] CPT: 16724 INDICATION: Open wounds right ankle and left foot. COMPARISON: Comparison is made with a prior study from March 13, 2012. TECHNIQUE: Bilateral ankle brachial indices were measured and Doppler tracings were obtained at the ankle of the dorsalis pedis and posterior tibial arteries. FINDINGS: The ankle brachial index on the right was 0.83 and on the left was 0.64. The ankle brachial indices on the prior study were 1.25 and 1.28 respectively. There is triphasic flow within the right posterior tibial artery and biphasic flow within the right dorsalis pedis artery. There is monophasic flow within the left posterior tibial artery and biphasic flow within the left dorsalis pedis artery. IMPRESSION: DECREASED ANKLE-BRACHIAL INDICES AND WAVEFORMS CONSISTENT WITH PERIPHERAL ARTERIAL DISEASE WHICH IS A SIGNIFICANT CHANGE FROM THE PRIOR EXAM. <Electronically signed by Leland Thornton MD in [place]> 07/19/18 1032 Dictated By: Leland Thornton MD Dictated Date/Time: 07/19/18 1032 Transcribed Date/Time: 07/19/18 1028 Copy to: Patient Name: JAMIE SERRANO Medical Record#: [id number] Ordering Physician: Chey Costa MD Acct.#: [id number] : 1955 Age: 63 Sex: M Location: [address] [place] [address] MEDICAL Exam Date: 10/28/182257 ADM Status: ADM IN Order Information: MRI LOWER EXTREMITY LEFT W/O Accession Number: [id number] CPT: 28625 HISTORY: Foot osteomyelitis, heel ulcer COMPARISONS: Plain film dated October 25, 2017 TECHNIQUE: The following sequences are submitted of the left hindfoot axial T1 and STIR images, coronal T1 STIR images, sagittal T1 and STIR images. FINDINGS: Bones: There are plantar and posterior calcaneal enthesophytes. There is no appreciable bone edema including along the area of ulceration. Muscles and tendons there is edema tracking along the plantar fascia and musculature. Joints: There is osteoarthritis of the tibiotalar and fibula talar articulations. There is mild osteoarthritis of the subtalar joint Soft tissues: There is a defect of the subcutaneous soft tissue along the heel consistent with the history of ulceration. IMPRESSION: 1. HEEL ULCER, WITHOUT ASSOCIATED BONE EDEMA TO SUGGEST OSTEOMYELITIS. 2. EDEMA OF THE PLANTAR MUSCULATURE SUGGESTIVE OF MYOSITIS. 3. OSTEOARTHRITIS. <Electronically signed by Gaurav Garcia MD in [place]> 10/28/181718 Dictated By: Gaurav Garcia MD Dictated Date/Time: 10/28/181718 Transcribed Date/Time: 10/28/181715 Relevant Labs: Laboratory Tests 11/01/18 11/01/18 06:04 06:04 WBC 10.2 RBC 3.31 L Hgb 7.7 L Hct 25 L BUN 12 Creatinine 1.50 H Est GFR (Non-Af Amer) 47.0 Assessment: As was determined after his August 28, 2018 interventional radiology clinic visit, Mr. Serrano's chronic left heel ulcer is almost certainly exacerbated by infrapopliteal arterial insufficiency, characteristic of diabetics. Plan/Recommendation: 1. Arteriography. Based on the strong pulses palpated at the left common femoral and left popliteal arteries, anticipate antegrade left femoral arteriotomy for detailed arteriogram of the infrapopliteal arteries and subsequent revascularization. 2. The patient's arteriography can be done as an outpatient. From the perspective of interventional radiology, the patient does not need to remain in the hospital.
[2018-11-01] MEDS: Aspirin 81 mg CHEW TAB* 81 MG TAB.CHEW PO SCH (17:12)
[2018-11-01] MEDS: Spironolactone TAB* 25 MG PO SCH (21:09)
[2018-11-01] MEDS: Tamsulosin CAP* 0.4 MG PO SCH (21:09)
[2018-11-02] MEDS: cefTRIAXone(*) 1 GM in NS 0.9% 50 ML* 50 ML IVPB SCH (07:55)
[2018-11-02] MEDS: Pantoprazole TAB * 40 MG TAB PO SCH (08:00)
[2018-11-02] MEDS: Metoprolol Tartrate TAB* 25 MG PO SCH ×2 (08:00→20:59)
[2018-11-02] MEDS: Ferrous Sulfate TAB* 325 MG PO SCH ×3 (08:00→20:59)
[2018-11-02] MEDS: Furosemide TAB* 40 MG PO SCH (08:00)
[2018-11-02] MEDS: Cyanocobalamin TAB* 500 MCG PO SCH (08:00)
[2018-11-02] MEDS: Insulin GLARGINE(*) 1 UNITS UNIT SUBCUT SCH ×2 (08:01→20:59)
[2018-11-02] MEDS: Heparin VIAL(*) 5000 UNITS/ML VIAL (FIVE THOUSAND) SUBCUT SCH ×2 (08:01→21:38)
[2018-11-02] MEDS: Digoxin TAB* 0.125 MG PO SCH (08:01)
[2018-11-02] MEDS: Insulin LISPRO* 1 UNITS UNIT SUBCUT SCH ×4 (08:10→20:59)
[2018-11-02] MEDS: Mometasone/Formoter 100/5 MDI INH SCH ×2 (08:25→19:47)
--- NOTE | 2018-11-02 10:11 | PN ---
Subjective Date of Service: 11/02/18 Interval History: Mr. Thapa denies complaint today, denies fever/chills, CP, SOB, increased pain to foot. He expresses his desire to get back home to [place] but still remains willing to go to [facility] after PICC line placement. Seen in consultation by Dr. Steel yesterday and is pleased with the prospect of having revascularization to the left extremity, as this may help him heal and get home sooner. Family History: Unchanged from Admission Social History: Unchanged from Admission Past Medical History: Unchanged from Admission Objective Active Medications: Albuterol/Ipratropium (Duoneb (Albuterol 2.5 Mg/Ipratropium 0.5 Mg)) 1 neb INH Q4H PRN PRN Reason: SOB/WHEEZING Aspirin (Aspirin 81 Mg Chew Tab*) 81 mg PO QPM [facility] Last Admin: 11/01/18 17:12 Dose: 81 mg Cyanocobalamin (Vitamin B12 Tab*) 1,000 mcg PO DAILY [facility] Last Admin: 11/02/18 08:00 Dose: 1,000 mcg Dextrose (D50w Syringe 50 Ml*) 12.5 gm IV PUSH .FOR FS < 60 - SS PRN PRN Reason: FS < 60 Digoxin (Lanoxin Tab*) 0.125 mg PO EVERY OTHER DAY [facility] Last Admin: 11/02/18 08:01 Dose: 0.125 mg Ferrous Sulfate (Ferrous Sulfate Tab*) 325 mg PO TID [facility] Last Admin: 11/02/18 08:00 Dose: 325 mg Furosemide (Lasix Tab*) 40 mg PO DAILY [facility] Last Admin: 11/02/18 08:00 Dose: 40 mg Heparin Sodium (Porcine) (Heparin Vial(*)) 5,000 units SUBCUT Q12HR [facility] Last Admin: 11/02/18 08:01 Dose: 5,000 units Ceftriaxone Sodium 1 gm/ (Sodium Chloride) 50 mls @ 200 mls/hr IVPB Q24H [facility] Last Admin: 11/02/18 07:55 Dose: 200 mls/hr Insulin Glargine (Lantus(*)) 25 units SUBCUT Q12HR [facility] Last Admin: 11/02/18 08:01 Dose: 25 units Insulin Human Lispro (Humalog*) 0 units SUBCUT [facility]; Protocol Last Admin: 11/02/18 08:10 Dose: 2 units Metoprolol Tartrate (Lopressor Tab*) 25 mg PO BID [facility] Last Admin: 11/02/18 08:00 Dose: 25 mg Mometasone Furoate/Formoterol Fumar (Dulera 100/5 Mdi*) 1 puff INH BID [facility] Last Admin: 11/02/18 08:25 Dose: 1 puff Pantoprazole Sodium (Protonix Tab*) 40 mg PO DAILY [facility] Last Admin: 11/02/18 08:00 Dose: 40 mg Spironolactone (Aldactone Tab*) 25 mg PO BEDTIME [facility] Last Admin: 11/01/18 21:09 Dose: 25 mg Tamsulosin HCl (Flomax Cap*) 0.4 mg PO BEDTIME [facility] Last Admin: 11/01/18 21:09 Dose: 0.4 mg Vital Signs - 8 hr 11/02/18 11/02/18 11/02/18 03:00 06:16 08:00 Temperature 97.1 F 96.7 F Pulse Rate 63 71 Respiratory 20 18 Rate Blood Pressure 133/51 162/69 (mmHg) O2 Sat by Pulse 97 99 95 Oximetry 11/02/18 11/02/18 08:01 08:27 Temperature Pulse Rate 76 79 Respiratory 16 Rate Blood Pressure (mmHg) O2 Sat by Pulse 95 Oximetry Oxygen Devices in Use Now: Nasal Cannula Appearance: 63 yo male, lying in bed, NAD; pleasant and interactive Eyes: No Scleral Icterus, PERRLA Ears/Nose/Mouth/Throat: Clear Oropharnyx, Mucous Membranes Moist Neck: NL Appearance and Movements; NL JVP Respiratory: Symmetrical Chest Expansion and Respiratory Effort, Clear to Auscultation Cardiovascular: NL Sounds; No Murmurs; No JVD, RRR Abdominal: NL Sounds; No Tenderness; No Distention Extremities: No Edema, - - LLE heel ulcer with quarter sized spot of eschar, no drainage noted Neurological: Alert and Oriented x 3, NL Muscle Strength and Tone Lines/Tubes/Other Access: Clean, Dry and Intact Peripheral IV Nutrition: Taking PO's - Nutrition: Malnutrition Diagnosis/Plan Malnutrition Assessment by Registered Dietitian: Malnutrition Assessment Clinical Characteristics Chronic,Moderate Malnutrition Assessment: - wt loss 13.6% in past three months Criteria - poor po intake at [facility] meeting <75% EEE x > 1 month Malnutrition Assessment: 1. continue consistent carb diet; follow FS Interventions results 2. suggest recheck A1c, given pt's significant wt loss and poor appetite since Jul 2018 3. Glucerna Shake daily at 3pm (add'l 220 kcals , 10 g prot) 4. pt declined offer for snacks, but aware that peanut butter and other sandwiches are available to him as desired; he will request as needed Malnutrition Assessment: Goals 1. adequate po intake to promote ulcer healing and maintain lean body mass without add'l wt gain 2. ulcers ot bilat feet will show evidence of healing and no evidence of new pressure-related skin breakdown 3. glycemic control will improve/stabilize; without hypo/hyperglycemia Result Diagrams: 11/01/18 06:04 11/01/18 06:04 Additional Lab and Data: Lab Results Microbiology and Other Data: Microbiology 10/26/18 00:01 Nasal Screen MRSA (PCR) - Final Nasal Mrsa Not Detected Assess/Plan/Problems-Billing Assessment: Mr. Thapa is a 63yo male with a PMH for HFrEF, COPD, DM II, LUANA, GAEL, and chronic osteomyelitis of the feet who was sent to the hospital from the wound clinic for new left heel wound and was admitted for concern for new osteomyelitis/cellulitis. - Patient Problems (1) Sepsis Comment: Resolved Likely due to left foot ulcer Blood culture negative Lactic acidosis, leukocytosis resolved. (2) Diabetic foot ulcer Code(s): E11.621 - TYPE 2 DIABETES MELLITUS WITH FOOT ULCER; L97.509 - NON- PRESSURE CHRONIC ULCER OTH PRT UNSP FOOT W UNSP SEVERITY Comment: Diabetic foot ulcer, followed by wound clinic. Presented with worsening erythema and concern for infection that appeared to be secondary to cellulitis CRP trending down, blood cultures negative to date. MSSA on wound culture, initially treated with cefazolin but now changed to ceftriaxone Appreciate ID input - recommends continuation of ceftriaxone IV for two weeks Needs PICC line prior to discharge back to [facility] (discharge to home not safe plan at this time). Wound consult appreciated, recommended Medihoney, Gauze, and Rolled Gauze. Ortho consult appreciated - float the left heel, encourage pressure reduction. MRI not showing osteo. (3) Lactic acid acidosis Code(s): E87.2 - ACIDOSIS Comment: Due to combination of foot infection and metformin with ELIZA Resolved with IV fluids Hold Metformin (4) Obesity hypoventilation syndrome Code(s): E66.2 - MORBID (SEVERE) OBESITY WITH ALVEOLAR HYPOVENTILATION Comment : Continue Night BiPAP Patient has lost 40 lbs in last several months intentionally. (5) ELIZA (acute kidney injury) Code(s): N17.9 - ACUTE KIDNEY FAILURE, UNSPECIFIED Comment: FeNa pre-renal Likely precipitated by infection Back to baseline, which is CKD Stage 3. (6) Anemia Code(s): D64.9 - ANEMIA, UNSPECIFIED Comment: Stable Iron studies from last hospitalization suggestive of iron deficiency (Iron sat 7 %; Iron level 23) and low normal B12 Continue oral iron and B12 May benefit from colonoscopy and endoscopy outpatient if respiratory status would tolerate. (7) Congestive heart failure Code(s): I50.9 - HEART FAILURE, UNSPECIFIED Comment: Weight 294 yesterday, 300 today (unsure of accuracy) No increased distress or edema noted, continue to monitor Continue furosemide, spironolactone Strict I/O and daily weights. (8) Diabetes Code(s): E11.9 - TYPE 2 DIABETES MELLITUS WITHOUT COMPLICATIONS Comment: Due to lactic acidosis, hold metformin and linagliptin (may resume on discharge) Continue sliding scale insulin Good control, A1c 5.8%, continue decreased dose of Lantus (9) HTN (hypertension) Code(s): I10 - ESSENTIAL (PRIMARY) HYPERTENSION Comment: Acceptable control Continue metoprolol at decreased dose. (10) Hypercapnic respiratory failure Code(s): J96.92 - RESPIRATORY FAILURE, UNSPECIFIED WITH HYPERCAPNIA Comment: Chronic Caused by obesity hypoventilation syndrome and COPD with chronic 2L O2 requirement at home Bipap at night HCO3 around baseline. (11) DVT prophylaxis Comment: HSQ Status and Disposition: Inpatient for IV antibiotics. Plan for discharge to [facility], pending PICC line placement. Attending: Waqar Salter
[2018-11-02] MEDS: Aspirin 81 mg CHEW TAB* 81 MG TAB.CHEW PO SCH (17:00)
[2018-11-02] MEDS: Tamsulosin CAP* 0.4 MG PO SCH (20:58)
[2018-11-02] MEDS: Spironolactone TAB* 25 MG PO SCH (20:59)
[2018-11-03 06:43] LABS: ABS Basophils 0.1 10^3/ul (0-0.2); ABS Eosinophils 0.3 10^3/ul (0-0.6); ABS Lymphocytes 1.3 10^3/ul (1.0-4.8); ABS Monocytes 0.4 10^3/ul (0-0.8); ABS Neutrophils 8.2 10^3/ul (1.5-7.7); ABS Nucleated RBC 0 10^3/ul; Hematocrit 25 % (42-52); Hemoglobin 7.5 g/dl (14.0-18.0); Mean Corpuscular HGB Conc 30 g/dl (31-36); Mean Corpuscular Hemoglobin 23 pg (27-31); Mean Corpuscular Volume 76 fL (80-94); Mean Platelet Volume 6.9 fL (7.4-10.4); Nucleated Red Blood Cells % 0; Platelet Count 307 10^3/ul (150-450); Red Blood Count 3.27 10^6/ul (4.00-5.40); Red Cell Distribution Width 19 % (10.5-15); White Blood Count 10.4 10^3/ul (3.5-10.8)
[2018-11-03 06:55] LABS: BUN/Creatinine Ratio 8.2 (8-20); C Reactive Protein 86.82 mg/L (<8.01); Calcium 8.1 mg/dL (8.6-10.3); EGFR African American 58.6 (>60); EGFR Non-African American 48.5 (>60); Potassium 3.1 mmol/L (3.5-5.0)
[2018-11-03] MEDS: cefTRIAXone(*) 1 GM in NS 0.9% 50 ML* 50 ML IVPB SCH (07:14)
[2018-11-03] MEDS: Mometasone/Formoter 100/5 MDI INH SCH ×2 (07:23→19:26)
[2018-11-03] MEDS ORDERED: Potassium Chlor TAB* 20 MEQ TAB.ER PO ONE (07:35)
[2018-11-03] MEDS ORDERED: KCL 20 MEQ/100 ML IVPREMIX* 20 MEQ/100 ML BAG IV SCH (08:00)
[2018-11-03] MEDS: Pantoprazole TAB * 40 MG TAB PO SCH (08:07)
[2018-11-03] MEDS: Metoprolol Tartrate TAB* 25 MG PO SCH ×2 (08:07→20:49)
[2018-11-03] MEDS: Ferrous Sulfate TAB* 325 MG PO SCH ×3 (08:07→20:49)
[2018-11-03] MEDS: Furosemide TAB* 40 MG PO SCH (08:08)
[2018-11-03] MEDS: Cyanocobalamin TAB* 500 MCG PO SCH (08:08)
[2018-11-03] MEDS: Insulin LISPRO* 1 UNITS UNIT SUBCUT SCH ×4 (08:12→20:49)
[2018-11-03] MEDS: Heparin VIAL(*) 5000 UNITS/ML VIAL (FIVE THOUSAND) SUBCUT SCH ×2 (08:12→20:48)
[2018-11-03] MEDS: Insulin GLARGINE(*) 1 UNITS UNIT SUBCUT SCH ×2 (08:12→20:49)
[2018-11-03] MEDS: Potassium Chlor TAB* 20 MEQ TAB.ER PO SCH ×2 (12:36→20:48)
--- NOTE | 2018-11-03 12:38 | PN ---
Subjective Date of Service: 11/03/18 Interval History: Mr. Thapa is feeling fine today. He offers no complaints. Denies any foot pain. Neuropathy is at baseline. He is looking forward to revascularization. He denies CP, SOB, N/V. He refused IV potassium today and was only agreeable to taking PO. Family History: Unchanged from Admission Social History: Unchanged from Admission Past Medical History: Unchanged from Admission Objective Active Medications: Albuterol/Ipratropium (Duoneb (Albuterol 2.5 Mg/Ipratropium 0.5 Mg)) 1 neb INH Q4H PRN SOB/WHEEZING Aspirin (Aspirin 81 Mg Chew Tab*) 81 mg PO QPM MAVIS Cyanocobalamin (Vitamin B12 Tab*) 1,000 mcg PO DAILY MAVIS Dextrose (D50w Syringe 50 Ml*) 12.5 gm IV PUSH .FOR FS < 60 - SS PRN FS < 60 Digoxin (Lanoxin Tab*) 0.125 mg PO EVERY OTHER DAY MAVIS Ferrous Sulfate (Ferrous Sulfate Tab*) 325 mg PO TID MAVIS Furosemide (Lasix Tab*) 40 mg PO DAILY MAVIS Heparin Sodium (Porcine) (Heparin Vial(*)) 5,000 units SUBCUT Q12HR MAVIS Ceftriaxone Sodium 1 gm/ (Sodium Chloride) 50 mls @ 200 mls/hr IVPB Q24H MAVIS Insulin Glargine (Lantus(*)) 25 units SUBCUT Q12HR MAVIS Insulin Human Lispro (Humalog*) 0 units SUBCUT ACHS MAVIS; Protocol Metoprolol Tartrate (Lopressor Tab*) 25 mg PO BID MAVIS Mometasone Furoate/Formoterol Fumar (Dulera 100/5 Mdi*) 1 puff INH BID MAVIS Pantoprazole Sodium (Protonix Tab*) 40 mg PO DAILY MAVIS Potassium Chloride (Klor Con Er Tab*) 20 meq PO BID MAVIS Spironolactone (Aldactone Tab*) 25 mg PO BEDTIME MAVIS Tamsulosin HCl (Flomax Cap*) 0.4 mg PO BEDTIME MAVIS Vital Signs - 8 hr 11/03/18 11/03/18 07:51 08:00 Temperature 98.7 F Pulse Rate 68 Respiratory 20 20 Rate Blood Pressure 149/61 (mmHg) O2 Sat by Pulse 97 Oximetry Oxygen Devices in Use Now: Nasal Cannula - 1L Appearance: Middle-aged male sitting in bed in NAD; Aloof Eyes: No Scleral Icterus Ears/Nose/Mouth/Throat: Mucous Membranes Moist Neck: NL Appearance and Movements; NL JVP, Trachea Midline Respiratory: Symmetrical Chest Expansion and Respiratory Effort, Clear to Auscultation Cardiovascular: NL Sounds; No Murmurs; No JVD, RRR Abdominal: NL Sounds; No Tenderness; No Distention Extremities: No Edema Skin: - - Dressing intact to left heel Neurological: Alert and Oriented x 3 Lines/Tubes/Other Access: Clean, Dry and Intact Peripheral IV Nutrition: Taking PO's - Nutrition: Malnutrition Diagnosis/Plan Malnutrition Assessment by Registered Dietitian: Malnutrition Assessment Clinical Characteristics Chronic,Moderate Malnutrition Assessment: - wt loss 13.6% in past three months Criteria - poor po intake at [facility] meeting <75% EEE x > 1 month Malnutrition Assessment: 1. continue consistent carb diet; follow FS Interventions results 2. suggest recheck A1c, given pt's significant wt loss and poor appetite since Jul 2018 3. Glucerna Shake daily at 3pm (add'l 220 kcals , 10 g prot) 4. pt declined offer for snacks, but aware that peanut butter and other sandwiches are available to him as desired; he will request as needed Malnutrition Assessment: Goals 1. adequate po intake to promote ulcer healing and maintain lean body mass without add'l wt gain 2. ulcers ot bilat feet will show evidence of healing and no evidence of new pressure-related skin breakdown 3. glycemic control will improve/stabilize; without hypo/hyperglycemia Result Diagrams: 11/03/18 06:29 11/03/18 06:29 Assess/Plan/Problems-Billing Assessment: Mr. Thapa is a 63yo male with a PMH for HFrEF, COPD, DM II, LUANA, GAEL, and chronic osteomyelitis of the feet who was sent to the hospital from the wound clinic for new left heel wound and was admitted for concern for new osteomyelitis/cellulitis. - Patient Problems (1) Diabetic foot ulcer Code(s): E11.621 - TYPE 2 DIABETES MELLITUS WITH FOOT ULCER; L97.509 - NON- PRESSURE CHRONIC ULCER OTH PRT UNSP FOOT W UNSP SEVERITY Comment: - History of previous ulcers and has followed with wound clinic - CRP trending down; blood cultures negative - MSSA on wound culture - MRI unremarkable for osteomyelitis - Appreciate Ortho consult; recommends float left heel, pressure reduction - Appreciate ID consult; recommends 2 weeks ceftriaxone - Appreciate wound consult; recommends Medihoney, gauze, rolled gauze - Needs PICC line prior to discharge back to [facility] - Continue ceftriaxone (2) PAD (peripheral artery disease) Code(s): I73.9 - PERIPHERAL VASCULAR DISEASE, UNSPECIFIED Comment: - Left sided infrapopliteal arterial insufficiency - Appreciate IR consult; recommends arteriography as an outpt, will need to schedule an appointment with Dr. Steel - Continue aspirin (3) Sepsis Comment: - Resolved - Secondary to left foot ulcer - Met sepsis criteria on admission with tachypnea, leukocytosis, elevated lactic ; met qSOFA criteria with tachypnea (4) EILZA (acute kidney injury) Code(s): N17.9 - ACUTE KIDNEY FAILURE, UNSPECIFIED Comment: - Resolved, creatinine back to baseline - Prerenal, secondary to infection (5) Diabetes mellitus, type 2 Comment: - Good control, A1c 5.8% - Hold metformin d/t lactic acidosis on admission (can resume at d/c) and linagliptin - Continue glargine, lispro SS (6) Chronic systolic congestive heart failure Code(s): I50.22 - CHRONIC SYSTOLIC (CONGESTIVE) HEART FAILURE Comment: - Stable, not in exacerbation - Recent echo shows EF 50-55% - Monitor strict I&O, daily weights - Continue furosemide, spironolactone, digoxin (7) HTN (hypertension) Code(s): I10 - ESSENTIAL (PRIMARY) HYPERTENSION Comment: - Acceptable control, SBP 130-140 - Continue metoprolol at decreased dose (8) Atrial fibrillation Code(s): I48.91 - UNSPECIFIED ATRIAL FIBRILLATION Comment: - Recent hospitalization in July for afib with RVR; had no known hx of afib prior to that admission - Has not been on anticoagulation d/t severe anemia; it was suggested he have a colonoscopy, though he has not follow up - Continue dignoxin, metoprolol (9) Chronic respiratory failure with hypercapnia Comment: - Stable - Seconary to obesity hypoventilation syndrome and COPD with chronic 2L O2 requirement at home and Bipap at night (10) COPD (chronic obstructive pulmonary disease) Code(s): J44.9 - CHRONIC OBSTRUCTIVE PULMONARY DISEASE, UNSPECIFIED Comment: - Stable, not in exacerbation and at baseline oxygen requirements - Continue Dulera; unclear why he is not on an anticholinergic, but will start Spiriva (11) Obesity hypoventilation syndrome Code(s): E66.2 - MORBID (SEVERE) OBESITY WITH ALVEOLAR HYPOVENTILATION Comment : - Continue BiPAP at night - Recent 40lbs intentional weight loss in the last few months (12) Anemia Code(s): D64.9 - ANEMIA, UNSPECIFIED Comment: - Stable, consistent with baseline - Labs from last hospitalization suggestive of iron deficiency and B12 deficiency - May benefit from colonoscopy and endoscopy outpatient if respiratory status would tolerate - Continue ferrous sulfate, vitamin B12 (13) DVT prophylaxis Comment: - Heparin SQ (14) Full code status Code(s): Z78.9 - OTHER SPECIFIED HEALTH STATUS Comment: Status and Disposition: Inpatient for IV antibiotics. Plan for discharge to [facility] after PICC line is placed. Attending: Angélica Rodriguez
[2018-11-03] MEDS ORDERED: Spiriva Inhaler DEVICE* 1 EACH DEVICE INH SCH (14:00)
[2018-11-03] MEDS: Aspirin 81 mg CHEW TAB* 81 MG TAB.CHEW PO SCH (17:42)
[2018-11-03] MEDS: Tamsulosin CAP* 0.4 MG PO SCH (20:49)
[2018-11-03] MEDS: Spironolactone TAB* 25 MG PO SCH (20:49)
[2018-11-04 06:47] LABS: BUN/Creatinine Ratio 8.1 (8-20); Calcium 8.4 mg/dL (8.6-10.3); EGFR African American 57.7 (>60); EGFR Non-African American 47.7 (>60); Potassium 3.4 mmol/L (3.5-5.0)
[2018-11-04 08:23] VITALS: BP 152/65
[2018-11-04] MEDS: Mometasone/Formoter 100/5 MDI INH SCH (08:29)
[2018-11-04] MEDS: Insulin LISPRO* 1 UNITS UNIT SUBCUT SCH ×2 (08:34→12:58)
[2018-11-04] MEDS: Metoprolol Tartrate TAB* 25 MG PO SCH (08:44)
[2018-11-04] MEDS: Ferrous Sulfate TAB* 325 MG PO SCH ×2 (08:44→13:04)
[2018-11-04] MEDS: Digoxin TAB* 0.125 MG PO SCH (08:45)
[2018-11-04] MEDS: Furosemide TAB* 40 MG PO SCH (08:45)
[2018-11-04] MEDS: Insulin GLARGINE(*) 1 UNITS UNIT SUBCUT SCH (08:46)
[2018-11-04] MEDS: Cyanocobalamin TAB* 500 MCG PO SCH (08:46)
[2018-11-04] MEDS: Pantoprazole TAB * 40 MG TAB PO SCH (08:46)
[2018-11-04] MEDS: Heparin VIAL(*) 5000 UNITS/ML VIAL (FIVE THOUSAND) SUBCUT SCH (08:54)
[2018-11-04] MEDS: cefTRIAXone(*) 1 GM in NS 0.9% 50 ML* 50 ML IVPB SCH (08:59)
[2018-11-04] MEDS ORDERED: Tiotropium CAP.INH* CAP.INH/18 MCG (USE ORDER SET !) INH SCH (09:00)
[2018-11-04] MEDS ORDERED: Potassium Chlor TAB* 10 MEQ TAB.ER PO SCH (09:00)
--- NOTE | 2018-11-04 12:26 | DS ---
AMENDED REPORT NOW INCLUDES DESIGNATED COSIGNER CC: Ismael Yoo MD; [facility]; Dr. Kurt Nieto; Dr. Raman Steel * DISCHARGE SUMMARY: DATE OF ADMISSION: 10/25/18 DATE OF DISCHARGE: 11/04/18 PRIMARY CARE PROVIDER: Ismael Yoo MD and [facility]. ATTENDING PHYSICIAN: Dr. Misael Rodriguez * (dictated by Angela Rodriguez NP) PRIMARY DIAGNOSES: 1. Cellulitis and myositis of the left foot secondary to diabetic foot ulcer. 2. Sepsis. 3. Acute kidney injury. 4. Peripheral arterial disease. SECONDARY DIAGNOSES: 1. Diabetes mellitus, type 2. 2. Chronic systolic congestive heart failure. 3. Hypertension. 4. Atrial fibrillation. 5. Chronic respiratory failure with hypercapnia. 6. Chronic obstructive pulmonary disease. 7. Obesity hypoventilation syndrome. 8. Iron-deficiency anemia. STUDIES WHILE IN THE HOSPITAL: 1. Left heel x-ray on 10/25/18 reads as inferior-posterior calcaneal spurring without evidence of radiolucency to suggest osteomyelitis. 2. Left lower extremity MRI on 10/28/18 reads as heel ulcer without associated bone edema to suggest osteomyelitis. Edema of the plantar musculature suggestive of myositis. Osteoarthritis. CONSULTATIONS WHILE IN THE HOSPITAL: 1. The patient was seen in consultation by Dr. Garrido from Orthopedic on for a left heel ulcer. 2. The patient was seen in consultation by Dr. Nieto from Infectious Disease on 10/29/18 for cellulitis. 3. The patient was seen in consultation by Dr. Steel from Interventional Radiology on 11/01/18 for vasculopathy. HISTORY OF PRESENT ILLNESS AND HOSPITAL COURSE: Mr. Thapa is a 63-year-old male with a complex medical history including CHF, COPD, diabetes, and obstructive sleep apnea, who presented to the emergency room on 10/25/18 after being sent by the wound clinic because of a left heel wound. Please see the history and physical by Dr. Costa for complete summary of the events leading up to this hospitalization. In short, the patient had been seen at the wound clinic where he had been a patient in the past, and the nurses there were concerned about possible infection. The patient denied any fever, chills, or pain. There was some brown purulent discharge of the wound. The patient does have a history of osteomyelitis for which he was previously treated with antibiotics. On admission, he was noted to meet sepsis criteria with tachypnea , leukocytosis, and lactic acidosis. He met qSOFA criteria with tachypnea. He was treated with appropriate IV fluids. He was admitted by the hospitalist service because of the concern for cellulitis. The patient was initially started on vanco, aztreonam, and Flagyl. A wound culture was obtained, which grew Staph aureus, but no evidence of MRSA. He was seen in consultation by both Orthopedic and Infectious Disease. He did have an MRI of the foot, which was unremarkable for osteomyelitis. He had been changed to cefazolin monotherapy, but ultimately on 11/01/18 was changed to ceftriaxone monotherapy. The cellulitis has continued to improve. He did have a wound care consult, at which time they recommended Medihoney gauze and Rolled gauze to the foot daily. At that point, the wound measured approximately 2 x 1.3 x 0.1 cm and was noted to be covered with black eschar. It was determined by Infectious Disease that the patient will need an extended period of antibiotics to fully treat this cellulitis and myositis. Dr. Nieto recommended 2 weeks total of ceftriaxone. The patient was seen by Dr. Steel from Interventional Radiology, who felt as though this left foot ulcer was exacerbated by infrapopliteal arterial insufficiency secondary to diabetes and Dr. Steel recommended arteriography as an outpatient. He did not feel as though this was emergent and felt it could be done on an outpatient basis. His other medical problems including diabetes, CHF, hypertension, COPD, and anemia have remained stable while in the hospital and he had no further medical concerns. I will note that on 10/26/18, the patient did have a therapeutic digoxin level of 1.1, and he was noted to have a hemoglobin A1c of 5.8% indicating good control of his diabetes at this point. The patient was started on Spiriva as it is not clear why he was not on anticholinergic already for his COPD. The patient will have a PICC placed this morning for an additional 10 days of antibiotics. As of today the patient reports feeling well, he offers no complaints. He is not particularly pleased with returning to [facility] though is agreeable as he understands he will need IV antibiotics. Mr. Thapa is stable for discharge today. Vital signs are as follows: Temp 97.2, heart rate 76, respiratory rate 16, oxygen saturation 95% on 2 L nasal cannula, blood pressure 152/65. DISCHARGE MEDICATIONS: New Medications: 1. Ceftriaxone 1 g IV daily x10 days. 2. Potassium chloride 10 mEq p.o. daily. 3. Tiotropium 1 cap inhalation daily. CHANGED MEDICATIONS: 1. Glargine 25 units subcu b.i.d. (previously was 40 units b.i.d.). CONTINUED MEDICATIONS: 1. DuoNeb 2.5 mg/0.5 mg 1 neb q.4 hours p.r.n. shortness of breath wheezing. 2. Aspirin 81 mg p.o. daily. 3. Symbicort 80/4.5 1 puff b.i.d. 4. Vitamin B12 1000 mcg p.o. daily. 5. Digoxin 0.125 mg p.o. daily. 6. Ferrous sulfate 325 mg p.o. b.i.d. 7. Furosemide 40 mg p.o. daily. 8. Metoprolol tartrate 50 mg p.o. b.i.d. 9. Pantoprazole 40 mg p.o. daily. 10. Spironolactone 25 mg p.o. at bedtime. 11. Tamsulosin 0.4 mg p.o. at bedtime. 12. Lidocaine 4% gel 1 application topically q.6 hours p.r.n. pain. 13. Linagliptin 5 mg p.o. daily. 14. Metformin 1000 mg p.o. b.i.d. DISCONTINUED MEDICATIONS: 1. Neosporin. DISCHARGE PLAN: Mr. Thapa will be discharged back to [facility]. Activity will be as tolerated though the patient is nonambulatory at baseline. Diet will be consistent carbohydrate. Medications are as noted above. The patient will need to complete 10 days of ceftriaxone to complete a total of 14 days of ceftriaxone. As noted above, I have also started him on Spiriva as he should have been on an anticholinergic for his COPD. I have also started him on potassium chloride as he was noted to have mild hypokalemia while here in the hospital which is secondary to furosemide use. He can continue his other usual medication except for the changes noted above in his glargine dosing. Wound care orders will be Medihoney gauze and Rolled gauze change daily. The patient will need appropriate PICC line care and follow up with the [facility]. He will additionally need a weekly CBC, CMP, and CRP while on antibiotics. The patient will need additional followup appointments with both Dr. Steel and Dr. Nieto for revascularization and infectious disease respectively. He will need to follow up with his primary care provider or the provider at [facility]. He should return to the emergency room for any worsening of symptoms, shortness of breath, lightheadedness, dizziness, chest discomfort, high fevers, chills, night sweats, loss of consciousness, or any other worrisome signs or symptoms. This is a summarized report of a complex medical history and hospital stay, for further details please see the entire medical record. TIME SPENT: Approximately 45 minutes were spent on this discharge. ANGELA RODRIGUEZ NP [id number]/[facility] #: [id number] TITUS
== END 2018-11-04 17:30 | DRG 872 ==
LOC: ED 15:42 → MED 22:08
PROVIDERS: ADMIT Internal Medicine; ATTEND Internal Medicine
PROC: 02HV33Z Insertion of Infusion Device into Superior Vena Cava, Percutaneous Approach (ICD-10-PCS; principal; 2018-11-04)
PROC: 5A09357 Assistance with Respiratory Ventilation, Less than 24 Consecutive Hours, Continuous Positive Airway Pressure (ICD-10-PCS; 2018-11-04)
DX: A41.9 Sepsis, unspecified organism (principal); L97.429 Non-pressure chronic ulcer of left heel and midfoot with unspecified severity; I50.22 Chronic systolic (congestive) heart failure; E66.2 Morbid (severe) obesity with alveolar hypoventilation; J96.11 Chronic respiratory failure with hypoxia; I13.0 Hypertensive heart and chronic kidney disease with heart failure and stage 1 through stage 4 chronic kidney disease, or unspecified chronic kidney disease; N17.9 Acute kidney failure, unspecified; E87.2 Acidosis; J44.1 Chronic obstructive pulmonary disease with (acute) exacerbation; M60.004 Infective myositis, unspecified left leg; L03.116 Cellulitis of left lower limb; J96.12 Chronic respiratory failure with hypercapnia; R65.20 Severe sepsis without septic shock; E11.51 Type 2 diabetes mellitus with diabetic peripheral angiopathy without gangrene; E11.621 Type 2 diabetes mellitus with foot ulcer; M46.86 Other specified inflammatory spondylopathies, lumbar region; I48.91 Unspecified atrial fibrillation; D50.9 Iron deficiency anemia, unspecified; F32.9 Major depressive disorder, single episode, unspecified; I27.20 Pulmonary hypertension, unspecified; G89.29 Other chronic pain; M54.9 Dorsalgia, unspecified; E78.2 Mixed hyperlipidemia; I73.89 Other specified peripheral vascular diseases; A49.01 Methicillin susceptible Staphylococcus aureus infection, unspecified site; R63.4 Abnormal weight loss; E11.40 Type 2 diabetes mellitus with diabetic neuropathy, unspecified; N18.3 Chronic kidney disease, stage 3 (moderate); Z98.42 Cataract extraction status, left eye; Z88.0 Allergy status to penicillin; Z91.013 Allergy to seafood; Z98.41 Cataract extraction status, right eye; Z82.49 Family history of ischemic heart disease and other diseases of the circulatory system; Z83.3 Family history of diabetes mellitus; Z68.37 Body mass index [BMI] 37.0-37.9, adult; Z79.82 Long term (current) use of aspirin
CPT/HCPCS: 36415; 80048; 80053; 80162; 80202; 81003; 81015; 82570; 83036; 83605; 83735; 84300; 85025; 85652; 86140; 87040; 87070; 87077; 87086; 87186; 87205; 87640; 87641; 94640; 94660; 99284; A9270-GY; G8978-GP-CI; G8979-GP-CI; G8980-GP-CI; G8987-GO-CI; G8988-GO-CI; G8989-GO-CI; J0690; J0696; J1644; J3370; J3475; J3480; J3490

== ENCOUNTER 2018-12-27 13:40 | Inpatient (IN) | payer MEDICARE, MEDICAID ==
--- OUTSIDE RECORDS SUMMARY | 2018-12-27 14:26 | XMS REPORT | Continuity of Care Document ---
:1955 External Reference #:[id number] Author Name Swetha Charles Care Team Providers Name Role Phone Rosmery Fisher M.D. Primary Care Physician Unavailable Payers Date Identification Numbers Payment Provider Subscriber Policy Number: [id number] Medicare Jamie Serrano PayID: [id number] [address] [place] [address] Policy Number: [id number] Medicaid Jamie Serrano PayID: [id number] [address] [place] [address] Advance Directives Type Date Description Status Comment MOLST 10/16/2016 MOLST Current and Verified Problems Date Description Provider Status Onset: 08/21/2014 Benign hypertension Ismael Yoo M.D. Active Onset: 08/21/2014 Mixed hyperlipidemia Ismael Yoo M.D. Active Onset: 08/21/2014 Diabetic neuropathy Ismael Yoo M.D. Active Onset: 08/21/2014 Type 2 diabetes mellitus Ismael Yoo M.D. Active Onset: 08/21/2014 Morbid obesity Ismael Yoo M.D. Active Onset: 08/21/2014 Chronic back pain Ismael Yoo M.D. Active Onset: 08/21/2014 Depressive disorder Ismael Yoo M.D. Active Onset: 08/21/2014 Cardiomyopathy Ismael Yoo M.D. Active Onset: 08/21/2014 Anemia Ismael Yoo M.D. Active Onset: 09/15/2014 Nervous system disorder due to Ismael Yoo M.D. Active diabetes mellitus Onset: 09/15/2014 Benign essential hypertension Ismael Yoo M.D. Active Onset: 09/15/2014 Chronic ulcer Ismael Yoo M.D. Active Onset: 09/15/2014 Onychomycosis Ismael Yoo M.D. Active Onset: 09/15/2014 Obesity Ismael Yoo M.D. Active Onset: 04/01/2015 Type II diabetes mellitus Ismael Yoo M.D. Active uncontrolled Onset: 07/29/2015 Essential hypertension Ismael Yoo M.D. Active Onset: 12/10/2015 Chronic hypoxemic respiratory Ismael Yoo M.D. Active failure Onset: 02/17/2016 Chronic pulmonary heart disease Shonda Olea MD Active Onset: 02/17/2016 Disturbance in sleep behavior Shonda Olea MD Active Onset: 10/16/2016 Candidiasis Ismael Yoo M.D. Active Onset: 01/15/2017 Chronic obstructive pulmonary Ismael Yoo M.D. Active disease with (acute) exacerbation Onset: 07/18/2018 Atrial fibrillation Irasema Yost N.P. Active Onset: 07/18/2018 Acute on chronic systolic heart Irasema Yost N.P. Active failure Onset: 07/19/2018 Acute renal failure syndrome Angélica Rodriguez MD Active Onset: 07/19/2018 Heart failure, unspecified Angélica Rodriguez MD Active Onset: 07/19/2018 Acute respiratory failure with Angélica Rodriguez MD Active hypoxia Onset: 07/19/2018 Osteomyelitis, mark anthonyified Angélica Rodriguez MD Active Onset: 07/20/2018 Acute diastolic heart failure Betzaida Martinez M.D. Active Onset: 07/20/2018 Hypertensive chronic kidney disease Betzaida Martinez M.D. Active with stage 1 through stage 4 chronic kidney disease, or unspecified chronic kidney disease Onset: 07/20/2018 Long-term current use of insulin Betzaida Martinez M.D. Active Onset: 07/22/2018 Pulmonary hypertension Angélica Rodriguez MD Active Onset: 07/22/2018 Altered mental status Angélica Rodriguez MD Active Onset: 07/23/2018 Acute respiratory failure with Angélica Rodriguez MD Active hypercapnia Onset: 07/24/2018 Hypoglycemic event in diabetes Betzaida Martinez M.D. Active Onset: 07/25/2018 Peripheral vascular disease Tyson Jeffers M.D. Active Onset: 07/25/2018 Type 2 diabetes mellitus with Tyson Jeffers M.D. Active diabetic peripheral angiopathy without gangrene Onset: 07/26/2018 Chronic obstructive lung disease Tyson Jeffers M.D. Active Onset: 08/09/2018 Type 2 diabetes mellitus with ulcer Robert Gomez MD Active Onset: 08/09/2018 Type 2 diabetes mellitus with Robert Gomez MD Active diabetic polyneuropathy Onset: 08/28/2018 Atherosclerosis of [place] arteries Raman Steel M.D. Active of right leg with ulceration of other part of foot Onset: 08/28/2018 Atherosclerosis of [place] arteries Raman Steel M.D. Active of left leg with ulceration of heel and midfoot Family History Date Family Member(s) Observation Comments Father due to at () age 50 was heavy smoker 3PPD and drank Father Diabetes Type II Mother from stroke at age 83 Siblings 1 Brother; not in communication Social History Type Date Description Comments Sex Unknown Marital Status Single Lives With Alone [employer] Occupation Disabled Tobacco Use Start: Unknown End: Former Cigarette Smoker 1 Unknown Pack Daily Tobacco Use Start: Unknown Quit in 2002 Smoking Status Reviewed: 12/12/18 Quit in 2002 ETOH Use Never used alcohol Tobacco Use Start: Unknown End: Patient is a former Unknown smoker Recreational Drug Use Never Used Drugs Exercise Type/Frequency Does not exercise Allergies, Adverse Reactions, Alerts Date Description Reaction Status Severity Comments 09/15/2014 Penicillins rash Active Medications Medication Date Status Form Strength Qnty SIG Indications Ordering Provider Ventolin HFA 11/30/19 Active Aerosol 108(90Bas 18uni 2 puffs Rosmery 19 e) ts by mouth Fisher, mcg/Act four MD times a day as needed Metformin HCL 11/27/19 Active Tablets 1000mg 14tab take 1 E11.65 [place] 18 s tablet by mick Crooks two M.DAnup,FACP times daily Furosemide 06/13/20 Active Tablets 80mg 45tab Take 1/2 [place] 17 s Tablet By Fredo Hammond MAnupDAnup Every Day Onetouch Verio 04/27/20 Active Kit w/Device 1unit test E11.65 [place] 17 s twice a [place] day and , M.D. as needed dx e11.65, 04/27/17 Pantoprazole 02/02/[address] 40mg 14tab take 1 Waq[place] Sodium 17 s tablet by mick Crooks.Zeferino,FACP every morning 1 hour before breakfast Onetouch Verio 12/06/19 Active Strips 100un test E11.65 Waqar 17 its twice a DAnup Salter, day and M.DAnup,FACP as needed dx e11.65, 04/27/17 Onetouch 12/06/19 Active Misc 200un test Waqar Lancets 17 its twice a D. Joie, day and M.DAnup,FACP as needed dx e11.65, 04/27/17 Tamsulosin HCL 12/01/19 Active Capsules 0.4mg 30cap Take 1 Ismael 17 s Capsule [place] By Mouth , M.DAnup Every Day AT Bedtime Tradjenta 10/16/19 Active Tablets 5mg 90tab Take 1 E11.65 Ismael 17 s Tablet By Pachika Mouth , MKamran Every Day Oxygen 11/10/19 Active Misc 1unit 3 liters [place] 16 s via nasal [place] cannula , M.D. at all times Pen [place] 10/04/19 Active Misc 31G X 6 100un length [place] 16 mm its 5x16 /31g [place] use with , MKamran levemir as directed Metoprolol 05/03/20 Active Tablets 50mg 60tab Take 1 [place] Tartrate 15 s Tablet By Mick Crooks Two MKamran,FACP Times Daily Aspirin Adult Active Chewtabs 81mg 90uni 1 by Ismael Low Strength 00 ts mouth [place] every day , M.D. Ferrous Sulfate Active Tablets DR 325(65Fe) 1 by Unknown 00 mg mouth three times a day Cyanocobalamin Active Solution 1000mcg/M 1000mcg Unknown 00 L by mouth daily Lorazepam Active Tablets 0.5mg take 1 Unknown 00 tablet by mouth every eight hours as needed for anxiety/i nsomnia Spironolactone Active Tablets 25mg 1 by Unknown 00 mouth every day at bedtime Digoxin Active Tablets 125mcg 30tab 1 by Rosmery 00 s mouth Phillip, every day MD Suárez Active Tablet 5mg 1 tab by Unknown 00 mouth daily Basaglar Active Solution 100Unit/M inject 20 Kurt Kwikpen 00 Pen-Inject L units DAnup subcut Giovannien, twice M.D. daily Symbicort Active Aerosol 80-4.5mcg 2 puffs Unknown 00 /Act twice a day Incruse Ellipta Active Aerosol 62.5mcg/I 7unit inhale Rosmery 00 nh s one puff Phillip, by mouth every day Symbicort 11/28/19 Hx Aerosol 160-4.5mc 2 puff Ismael 19 - g/Act twice a [place] 11/28/19 day , M.DAnup 19 [employer] Pen 02/12/20 Hx 100un use with Ismael Needle 6mm 31G 18 - its levemir [place] 03/29/20 as , M.DAnup 18 directed Levemir 12/19/19 Hx Solution 100Unit/M 30uni Inject 40 E11.65 Waqar Flextouch 18 - Pen-Inject L ts Units Zeferino Salter, 11/28/19 Under The MKamran,FACP 19 Skin Two Times Daily (currentl y 55units) Levemir 11/27/19 Hx Solution 100Unit/M 30ml 4o units E11.65 Ismael Flextouch 18 - Pen-Inject L twice [place] 12/19/19 daily , MKamran 18 Losartan 11/27/19 Hx Tablets 50mg 90tab 1 by I10 Ismael Potassium 18 - s mouth [place] 08/01/20 every day , MAnupDAnup 18 [employer] [facility] 04/27/20 Hx Misc 30G 100un test E11.65 Ismael Lancets 17 - its twice [place] 04/30/20 daily and , M.DAnup 17 as needed Metformin HCL 04/27/20 Hx Tablets 500mg 30tab Take 1 E11.65 Waqar 17 - s Tablet By Zeferino Salter, 11/27/19 Mouth Two M.DAnup,FACP 18 Times Daily Levemir 01/16/20 Hx Solution 100Unit/M 35 units E11.65 [place] Flextouch 17 - Pen-Inject L twice [place] 01/16/20 daily , M.D. 17 Levemir Flexpen 01/16/20 Hx Solution 100Unit/M 15ml 55 units E11.65 Ismael 17 - Pen-Inject L once [place] 11/27/19 daily , M.D. 18 Proair HFA 01/06/20 Hx Aerosol 108(90Bas 8.5un 2 puffs Ismael 17 - e) its ih every [place] 11/28/19 mcg/Act 4 hours , M.D. 19 as needed Levemir Flexpen 12/06/19 Hx Solution 100Unit/M 45uni 45 units E11.65 [place] 17 - [facility] 01[facility] , M.DAnup 17 Onetouch Verio 12/06/19 Hx Kit w/Device 1unit test bid Ismael Iq Blood 17 - s and as [facility] Glucose 04/30/20 needed dx , M.D. Monitoring 17 E11.65 System 10/16/16 Albuterol 12/05/19 Hx Powder 60uni 1-2 puffs Ismael Sulfate 17 - ts every 4 [place] 01/06/20 hours as , M.DAnup 17 needed sob Symbicort 12/05/19 Hx Aerosol 80-4.5mcg 30.6u Inhale 1 [place] 17 - /Act nits puff By [place] 11/28/19 Mouth Two , M.D. 19 Times Daily Spiriva 12/01/19 Hx Capsules 18mcg 30cap 1 unit Ismael Handihaler 17 - s inhalatio [place] Unknown n daily , M.D. Prednisone 12/01/19 Hx Tablets 20mg 60tab 2 tabs by Other 17 - s mouth Ordering 02/24/20 every day Provider 17 Levemir 10/16/19 Hx Solution 100Unit/M 10ml 45 units E11.65 Ismael 17 - L hs [place] 12/06/19 , M.D. 17 Ketoconazole 10/16/19 Hx Cream 2% 120gm apply B37.9 [place] 17 - twice a [place] 06/28/20 day(no , M.D. 18 longer using) Tab-A-Bay 09/12/20 Hx Tablets 90tab 1 by Ismael 16 - s mouth [place] 01/16/20 every day , M.D. 17 Lisinopril 02/11/20 Hx Tablets 20mg 30tab 1 by Ismael 16 - s mouth [place] 02/16/20 every day , M.D. 16 Amlodipine 01/03/20 Hx Tablets 5mg 30tab 1 by Soren Besylate 16 - s mouth [place], 04/01/20 every day MANAGEMENT COORDINATOR 17 (no longer using) One Touch Verio 07/29/20 Hx 60uni test bid E11.65 [place] Test Strips 15 - ts and as [place] 12/06/19 needed dx , M.D. 17 E11.65 10/16/16 One Touch / 07/29/20 Hx 60uni test E11.65 Ismael Verio/Lancets 15 - ts twice a [place] 12/06/19 day and , M.D. 17 as needed dx e11.65 10/16/16 Levemir 07/29/20 Hx Solution 100Unit/M 45ml 30 units E11.65 [place] Flextouch 15 - Pen-Inject L sc every Pachikara 10/16/19 day at , M.D. 17 bedtime Metformin HCL 09/15/20 Hx Tablets 1000mg 60tab 1 by 250.60 [place] 14 - s mouth [place] 11/11/19 once per , M.D. 16 day Glipizide 09/15/20 Hx Tablets 10mg 30tab Take 1 Waqar 14 - s Tablet By Zeferino Salter, 11/27/19 Mouth M.DAnup,FACP 18 twice a Day Ferrous Sulfate Hx Tablets 325(65Fe) 90tab 1 by Ismael 00 - mg s mouth [place] 04/01/20 every day , M.D. 15 Furosemide Hx Tablets 40mg 90tab 1 by [place] 00 - s mouth [place] 06/13/20 every day , M.D. 17 Lipitor Hx Tablets 10mg 90tab 1 by Unknown 00 - s mouth 07/16/20 every 14 night at bedtime Metoprolol Hx Tablets 50mg 180ta 1 by Ismael Tartrate 00 - bs mouth [place] 04/01/20 once a , M.D. 15 day Glipizide Hx Tablets 10mg 1 by Unknown 00 - mouth 09/15/20 twice a 14 day Lisinopril Hx Tablets 10mg 90tab 1 by Ismael 00 - s mouth [place] 02/11/20 every day , M.D. 16 Lantus Hx Solution 100Unit/M 3vial as Unknown 00 - L s directed 04/01/20 15 Potassium Hx Tablets ER 20Meq 90tab 1 by Ismael Chloride Paz - s mouth [place] ER 04/01/20 every day , M.DAnup 15 Vitamin C Plus Hx Tablets 500mg 1 po qd Unknown - 08/16/20 14 Metformin HCL Hx Tablets 500mg 60tab 1 by Unknown 00 - s mouth 09/15/20 twice a 14 day Bisacodyl Hx Suppository 10mg 12uni as needed Unknown 00 - ts 07/06/20 14 Milk Of Hx Suspension 400mg/5ML 473un 30 ml's Unknown Magnesia 00 - its on the 04/01/20 3rd day 15 with no bm as needed Fleet Enema Hx Enema 7-19GM/11 3unit 1 enema Unknown 00 - 8ML s by way of 09/15/20 rectum as 14 needed Multivitamins Hx Capsules 90cap 1 by [place] 00 - s mouth [place] 11/11/19 every day , M.DAnup 16 Nystatin Hx Powder 1unit apply Unknown 00 - s three 11/16/19 times a 14 day until rash clears Tylenol Hx Tablets ER 650mg 100ta 1 q4h prn Unknown Arthritis Pain 00 - bs 09/15/20 14 Oxygen Hx Misc 1unit 3 liters Unknown 00 - s via nasal 04/01/20 canula. 15 Lisinopril Hx Tablets 10mg 30tab 1 by Ismael 00 - s mouth [place] 04/03/20 every day , M.D. 17 (no longer using) Tab-A-Bay Hx Tablets 1 by Unknown 00 - mouth 02/24/20 every day 17 Doxycycline Hx Capsules 100mg one Kurt Hyclate 00 - tablet D. 09/03/20 twice [place], 18 daily for M.D. 3 wks Santyl Hx Ointment 250Unit/G apply 3cm Unknown 00 - M of 11/28/19 ointment 19 to wound as directed daily Lidocaine Hx Cream 4% apply to Unknown 00 - affected 11/28/19 areas 3 19 or 4 times daily as needed Nystatin Hx powder as Unknown 00 - directed 11/28/19 19 Duoneb Hx 0.5-2.5mg Unknown Inhalation 00 - /3ml Solution 11/30/19 every 4 19 hours as needed Neomycin-Bacitr Hx as B37.9 Unknown acin ZN-Polymyx 00 - directed 11/28/19 19 Ceftriaxone Hx Solution 1gm iv every Unknown Sodium 00 - Rec 24 hours 11/28/19 x 14 days 19 at [facility] Medications Administered in Office Medication Date Status Form Strength Qnty SIG Indications Ordering Provider Technetium TC Administered Injection Shorty Santos 99M 017 DO [place] Tetrofosmin, FACC Per Unit Dose Up To 40 Millicuries Immunizations CPT Code Status Date Vaccine Lot # 26570 Given 10/16/2016 Zoster (Zostavax) [id number] Given 10/16/2016 Influ Virus Vaccine, Quadrivalent, Split Virus, [place] [id number] [id number] Given 07/29/2015 Influenza Virus Vaccine, Quadrivalent, Split, [id number] Preservative Free [id number] Given 09/15/2014 Pneumonia Vaccine [id number] Vital Signs Date Vital Result Comment 12/12/2018 11:23am Height 74 inches 6'2" Weight 275.00 lb Heart Rate 80 /min BP Systolic Sitting 132 mmHg Lue large cuff BP Diastolic Sitting 64 mmHg Lue large cuff Respiratory Rate 16 /min O2 % BldC Oximetry 97 % BMI (Body Mass Index) 35.3 kg/m2 11/29/2018 2:38pm Height 74 inches 6'2" Weight 285.00 lb Heart Rate 82 /min BP Systolic 133 mmHg BP Diastolic 62 mmHg Body Temperature 98.1 F O2 % BldC Oximetry 96 % BMI (Body Mass Index) 36.6 kg/m2 09/20/2018 1:18pm Height 74 inches 6'2" Heart Rate 84 /min BP Systolic Sitting 134 mmHg BP Diastolic Sitting 60 mmHg Pain Level 0 09/13/2018 9:32am Height 74 inches 6'2" Weight 290.00 lb per pt Heart Rate 70 /min BP Systolic Sitting 140 mmHg BP Diastolic Sitting 80 mmHg Respiratory Rate 14 /min Body Temperature 99.1 F O2 % BldC Oximetry 97 % on 3L O2 BMI (Body Mass Index) 37.2 kg/m2 08/28/2018 10:16am Height 74 inches 6'2" Weight 290.00 lb per pt Heart Rate 66 /min reg BP Systolic Sitting 112 mmHg Lue reg cuff BP Diastolic Sitting 60 mmHg Lue reg cuff Respiratory Rate 16 /min O2 % BldC Oximetry 97 % on 2 lpm BMI (Body Mass Index) 37.2 kg/m2 08/26/2018 3:43pm Height 74 inches 6'2" Heart Rate 76 /min BP Systolic Sitting 164 mmHg BP Diastolic Sitting 72 mmHg Respiratory Rate 24 /min Body Temperature 98.4 F 08/20/2018 11:18am Height 74 inches 6'2" Heart Rate 74 /min BP Systolic Sitting 138 mmHg Lue large cuff BP Diastolic Sitting 58 mmHg Lue large cuff Respiratory Rate 18 /min O2 % BldC Oximetry 92 % On 3L O2 via nasal cannula, tank 08/12/2018 2:32pm Height 74 inches 6'2" Weight 350.00 lb per pt Heart Rate 66 /min BP Systolic Sitting 112 mmHg BP Diastolic Sitting 56 mmHg Respiratory Rate 16 /min Body Temperature 98.9 F O2 % BldC Oximetry 91 % on 4L O2 NC BMI (Body Mass Index) 44.9 kg/m2 08/09/2018 10:26am Heart Rate 68 /min Respiratory Rate 18 /min Body Temperature 97.8 F Pain Level 0 12/18/2017 1:42pm Weight 260.00 lb Heart Rate 97 /min BP Systolic 130 mmHg BP Diastolic 68 mmHg Body Temperature 98.5 F O2 % BldC Oximetry 97 % 11/27/2017 1:09pm Weight 365.00 lb Heart Rate 97 /min BP Systolic Sitting 150 mmHg BP Diastolic Sitting 80 mmHg Body Temperature 98.6 F O2 % BldC Oximetry 94 % 04/27/2017 1:14pm Height 74 inches 6'2" Heart Rate 69 /min BP Systolic 138 mmHg BP Diastolic 74 mmHg Body Temperature 99.0 F O2 % BldC Oximetry 99 % 04/17/2017 10:26am Height 74 inches 6'2" Weight 275.00 lb last wt pt in wc BP Systolic 162 mmHg Rue reg cuff BP Diastolic 82 mmHg Rue reg cuff BP Systolic Sitting 166 mmHg Lue reg cuff BP Diastolic Sitting 84 mmHg Lue reg cuff Respiratory Rate 16 /min BMI (Body Mass Index) 35.3 kg/m2 Ejection Fraction 55-60% 04/06/2016-echo 02/23/2017 8:37am Weight 275.00 lb Heart Rate 78 /min BP Systolic Sitting 128 mmHg BP Diastolic Sitting 72 mmHg Respiratory Rate 15 /min Body Temperature 97.0 F O2 % BldC Oximetry 98 % 01/15/2017 1:41pm Heart Rate 76 /min BP Systolic Sitting 150 mmHg BP Diastolic Sitting 88 mmHg Body Temperature 99.4 F O2 % BldC Oximetry 96 % 10/16/2016 2:28pm Heart Rate 86 /min BP Systolic Sitting 140 mmHg BP Diastolic Sitting 66 mmHg O2 % BldC Oximetry 97 % 09/01/2016 1:00pm Heart Rate 90 /min BP Systolic Sitting 109 mmHg BP Diastolic Sitting 69 mmHg Body Temperature 98.0 F O2 % BldC Oximetry 96 % 02/17/2016 11:09am Height 74 inches 6'2" Weight 275.00 lb pt reports Heart Rate 70 /min BP Systolic Sitting 148 mmHg BP Diastolic Sitting 78 mmHg Respiratory Rate 20 /min O2 % BldC Oximetry 95 % on 1lpm oxygen BMI (Body Mass Index) 35.3 kg/m2 02/17/2016 11:02am Height 74 inches 6'2" Weight 275.00 lb pt reports BMI (Body Mass Index) 35.3 kg/m2 12/10/2015 10:51am Heart Rate 78 /min BP Systolic Sitting 148 mmHg BP Diastolic Sitting 72 mmHg O2 % BldC Oximetry 72 % without O2 11/11/2015 12:42pm Heart Rate 82 /min BP Systolic Sitting 146 mmHg BP Diastolic Sitting 73 mmHg Body Temperature 99.1 F O2 % BldC Oximetry 90 % On 3L Oxygen 07/29/2015 9:50am Weight 292.00 lb per pt Heart Rate 91 /min BP Systolic Sitting 158 mmHg BP Diastolic Sitting 70 mmHg Body Temperature 98.9 F O2 % BldC Oximetry 99 % 04/01/2015 12:54pm Heart Rate 79 /min BP Systolic Sitting 130 mmHg BP Diastolic Sitting 71 mmHg Body Temperature 98.7 F O2 % BldC Oximetry 98 % 09/15/2014 2:00pm Height 74 inches 6'2" Weight 294.00 lb declined Heart Rate 88 /min BP Systolic Sitting 142 mmHg BP Diastolic Sitting 88 mmHg Body Temperature 98.6 F BMI (Body Mass Index) 37.7 kg/m2 Results Test Date Facility Test Result H/L Range Note Comp Metabolic Panel 11/11/2018 Sodium 141 mmol/L N 135-[address] [place] [address] [phone] Potassium 3.5 mmol/L N 3.5-5.0 Chloride 96 mmol/L Low 101-111 Co2 Carbon Dioxide 38 mmol/L High 22-32 Anion Gap 7 mmol/L N 2-11 Glucose 91 mg/dL N 70-100 Blood Urea Nitrogen 17 mg/dL N 6-24 Creatinine 1.31 mg/dL High 0.67-1.17 BUN/Creatinine Ratio 13.0 N 8-20 Calcium 8.0 mg/dL Low 8.6-10.3 Total Protein 6.4 g/dL N 6.4-8.9 Albumin 2.8 g/dL Low 3.2-5.2 Globulin 3.6 g/dL N 2-4 Albumin/Globulin Ratio 0.8 Low 1-3 Total Bilirubin 0.30 mg/dL N 0.2-1.0 Alkaline Phosphatase 48 U/L N 34-104 Alt < 3 U/L Low 7-52 Ast 9 U/L Low 13-39 Egfr Non- 54.9 >60 Egfr 66.4 >60 2 Laboratory test 11/11/2018 C Reactive 112.44 mg/L High <8.01 [address] [place] [address] [phone] CBC Auto Diff 11/11/2018 White Blood 12.7 High 3.5- 10.[address] Count 10^3/[place] [address] [phone] Red Blood Count 3.24 10^6/uL Low 4.00-5.40 Hemoglobin 7.5 g/dL Low 14.0-18.0 Hematocrit 25 % Low 42-52 Mean Corpuscular Volume 76 fL Low 80-94 Mean Corpuscular Hemoglobin 23 pg Low 27-31 Mean Corpuscular HGB Conc 30 g/dL Low 31-36 Red Cell Distribution Width 18 % High 10.5-15 Platelet Count 319 10^3/uL N 150-450 Mean Platelet Volume 7.7 fL N 7.4-10.4 Abs Neutrophils 9.6 10^3/uL High 1.5-7.7 Abs Lymphocytes 1.8 10^3/uL N 1.0-4.8 Abs Monocytes 0.5 10^3/uL N 0-0.8 Abs Eosinophils 0.8 10^3/uL High 0-0.6 Abs Basophils 0.1 10^3/uL N 0-0.2 Abs Nucleated RBC 0 10^3/uL Granulocyte % 75.7 % Lymphocyte % 14.2 % Monocyte % 3.8 % Eosinophil % 5.9 % Basophil % 0.4 % Nucleated Red Blood Cells % 0 Laboratory test 10/25/2018 Lactic Acid 4.8 mmol/L High 0.5-2.0 4 finding [address] [place] [address] [phone] Comp Metabolic 10/25/2018 Sodium 141 mmol/L N 135- 145 Panel [address] [place] [address] [phone] Potassium 3.8 mmol/L N 3.5-5.0 Chloride 91 mmol/L Low 101-111 Glucose 94 mg/dL N 70-100 Blood Urea Nitrogen 26 mg/dL High 6-24 Creatinine 2.28 mg/dL High 0.67-1.17 BUN/Creatinine Ratio 11.4 N 8-20 Calcium 8.4 mg/dL Low 8.6-10.3 Total Protein 8.1 g/dL N 6.4-8.9 Albumin 3.3 g/dL N 3.2-5.2 Globulin 4.8 g/dL High 2-4 Albumin/Globulin Ratio 0.7 Low 1-3 Total Bilirubin 0.40 mg/dL N 0.2-1.0 Alkaline Phosphatase 58 U/L N 34-104 Alt 3 U/L Low 7-52 Ast 11 U/L Low 13-39 Egfr Non- 29.0 >60 Egfr 35.1 >60 5 Co2 Carbon Dioxide 41 mmol/L High 22-32 6 Anion Gap 9 mmol/L N 2-11 Laboratory test 10/25/2018 C Reactive 136.50 mg/L High <8.[address] [place] [address] [phone] CBC Auto Diff 10/25/2018 White Blood 16.0 High 3.5- 10.[address] Count 10^3/[place] [address] [phone] Red Blood Count 3.82 10^6/uL Low 4.00-5.40 Hemoglobin 8.4 g/dL Low 14.0-18.0 Hematocrit 29 % Low 42-52 Mean Corpuscular Volume 75 fL Low 80-94 Mean Corpuscular Hemoglobin 22 pg Low 27-31 Mean Corpuscular HGB Conc 29 g/dL Low 31-36 Red Cell Distribution Width 19 % High 10.5-15 Platelet Count 380 10^3/uL N 150-450 Mean Platelet Volume 7.4 fL N 7.4-10.4 Abs Neutrophils 12.4 10^3/uL High 1.5-7.7 Abs Lymphocytes 2.3 10^3/uL N 1.0-4.8 Abs Monocytes 0.5 10^3/uL N 0-0.8 Abs Eosinophils 0.7 10^3/uL High 0-0.6 Abs Basophils 0 10^3/uL N 0-0.2 Abs Nucleated RBC 0 10^3/uL Granulocyte % 77.9 % Lymphocyte % 14.4 % Monocyte % 2.8 % Eosinophil % 4.6 % Basophil % 0.3 % Nucleated Red Blood Cells % 0 Laboratory test 10/25/2018 Erythrocyte Sed 120 mm/Hr High 0-[address] [place] [address] [phone] Laboratory test 10/25/2018 Tissue Culture SEE RESULT 7, [address] & [place] [address] [phone] Arterial Blood 07/18/2018 O2 Device BiPAP Gas [address] [place] [address] [phone] Fio2 40 PH Arterial 7.33 Low 7.35-7.45 Pco2 Arterial 69 mmHg High 35-45 Po2 Arterial 73 mmHg Low 80-100 O2 Saturation Arterial 96.3 % N 95-98 Base Excess Arterial 9.0 High -2.0-2.0 9 Hco3 Arterial 31.9 mmol/L High 19-31 CBC Auto Diff 07/18/2018 White Blood 8.3 10^3/uL N 3.5-10.[address] [place] [address] [phone] Red Blood Count 3.71 10^6/uL Low 4.00-5.40 Hemoglobin 8.8 g/dL Low 14.0-18.0 Hematocrit 29 % Low 42-52 Mean Corpuscular Volume 78 fL Low 80-94 Mean Corpuscular Hemoglobin 24 pg Low 27-31 Mean Corpuscular HGB Conc 30 g/dL Low 31-36 Red Cell Distribution Width 15 % N 10.5-15 Platelet Count 274 10^3/uL N 150-450 Mean Platelet Volume 7.9 um3 N 7.4-10.4 Abs Neutrophils 6.9 10^3/uL N 1.5-7.7 Abs Lymphocytes 0.8 10^3/uL Low 1.0-4.8 Abs Monocytes 0.5 10^3/uL N 0-0.8 Abs Eosinophils 0.1 10^3/uL N 0-0.6 Abs Basophils 0 10^3/uL N 0-0.2 Abs Nucleated RBC 0 10^3/uL Granulocyte % 83.2 % High 38-83 Lymphocyte % 9.9 % Low 25-47 Monocyte % 5.7 % N 0-7 Eosinophil % 0.8 % N 0-6 Basophil % 0.4 % N 0-2 Nucleated Red Blood Cells % 0.1 Inr/Protime 07/18/2018 Inr 0.96 N 0.77-1.[address] [place] [address] [phone] Laboratory test 07/18/2018 Partial 31.0 seconds N 26.0-36.[address] [place] [address] PTT [phone] Lactic Acid 0.9 mmol/L N 0.5-2.0 10 B-Type Natriuretic Peptide BNP 160 pg/mL High 11 Comp Metabolic Panel 07/18/2018 Sodium 137 mmol/L N 135-[address] [place] [address] [phone] Potassium 4.8 mmol/L N 3.5-5.0 Chloride 96 mmol/L Low 101-111 Co2 Carbon Dioxide 33 mmol/L High 22-32 Anion Gap 8 mmol/L N 2-11 Glucose 426 mg/dL High 70-100 Blood Urea Nitrogen 25 mg/dL High 6-24 Creatinine 1.73 mg/dL High 0.67-1.17 BUN/Creatinine Ratio 14.5 N 8-20 Calcium 8.6 mg/dL N 8.6-10.3 Total Protein 7.2 g/dL N 6.4-8.9 Albumin 3.0 g/dL Low 3.2-5.2 Globulin 4.2 g/dL High 2-4 Albumin/Globulin Ratio 0.7 Low 1-3 Total Bilirubin 0.40 mg/dL N 0.2-1.0 Alkaline Phosphatase 87 U/L N 34-104 Alt 4 U/L Low 7-52 Ast 6 U/L Low 13-39 Egfr Non- 39.8 >60 Egfr 48.2 >60 12 Laboratory test 07/18/2018 Creatine 67 U/L N 10- [address] [facility](CK) [place] [address] [phone] [facility] 07/18/2018 CKMB ng/mL 2.6 N 0.6-6.3 [address] DRIVE ng/[place] [address] [phone] Laboratory test 07/18/2018 Troponin-I 0.04 High < 0.04 [address] (TnI) ng/[place] [address] [phone] Magnesium 2.0 mg/dL N 1.9-2.7 Blood Culture SEE RESULT BELOW 14 Lipid Profile 12/18/2017 Triglycerides 92 mg/dL 15 (Trig/Chol/HDL) [address] [place] [address] [phone] Cholesterol 134 mg/dL 16 HDL Cholesterol 30.0 mg/dL 17 LDL Cholesterol 86 mg/dL 18 Comp Metabolic Panel 12/18/2017 Sodium 134 mmol/L N 133-145 [address] [place] [address] [phone] Potassium 4.7 mmol/L N 3.5-5.0 Chloride 95 mmol/L Low 101-111 Co2 Carbon Dioxide 29 mmol/L N 22-32 Anion Gap 10 mmol/L N 2-11 Glucose 437 mg/dL High 70-100 Blood Urea Nitrogen 52 mg/dL High 6-24 Creatinine 2.00 mg/dL High 0.67-1.17 BUN/Creatinine Ratio 26.0 High 8-20 Calcium 9.2 mg/dL N 8.6-10.3 Total Protein 7.1 g/dL N 6.4-8.9 Albumin 3.4 g/dL N 3.2-5.2 Globulin 3.7 g/dL N 2-4 Albumin/Globulin Ratio 0.9 Low 1-3 Total Bilirubin 0.30 mg/dL N 0.2-1.0 Alkaline Phosphatase 65 U/L N 34-104 Alt 6 U/L Low 7-52 Ast 10 U/L Low 13-39 Egfr Non- 33.8 >60 Egfr 43.5 >60 19 Laboratory test finding 12/18/2017 Cortisol 14.45 g /dL 20 [address] [place] [address] [phone] TSH (Thyroid Stim Horm) 2.21 mcIU/mL N 0.34-5.60 Laboratory test 11/27/2017 Real Estate Transaction Manager In House Hemoglobin A1c >14.0 High 5-7 finding Laboratory test 04/27/2017 Real Estate Transaction Manager In House Hemoglobin A1c 12.0 High 5-7 finding Laboratory test 03/21/2017 Point of Care 151 mg/dL High 74-106 21 finding 101 [facility] [place] [address] [phone] Laboratory test 03/21/2017 Point of Care 282 mg/dL High 74-106 22 finding 101 [facility] [place] [address] [phone] Laboratory test 03/21/2017 Point of Care 313 mg/dL High 74-106 23 finding 101 [facility] [place] [address] [phone] Laboratory test 03/14/2017 Point of Care 244 mg/dL High 74-106 [address] [place] [address] [phone] Laboratory test 03/14/2017 Point of Care 334 mg/dL High 74-106 [address] [place] [address] [phone] Laboratory test 03/14/2017 Point of Care 391 mg/dL High 74-106 [address] [place] [address] [phone] Urine Microalbumin 01/15/2017 Urine Creatinine 100.96 N Random [address] mg/[place] [address] [phone] Ur Microalbumin (mg/L) 642.0 mg/L N Urine Microalbumin/Creatinine 635.8 ug/mg High <31 Laboratory test 01/15/2017 Real Estate Transaction Manager In House Hemoglobin A1c 10.1 High 5-7 finding Stool For Blood 11/28/2016 Stool Occult SEE RESULT [address] [place] [place] [address] [phone] Laboratory test 10/16/2016 PSA Screening 0.380 ng/mL N 0-4.000 [address] [place] [address] [phone] Comp Metabolic 10/16/2016 Sodium 132 mmol/L Low 133 -[address] [place] [address] [phone] Potassium 4.6 mmol/L N 3.5-5.0 Chloride 95 mmol/L Low 101-111 Co2 Carbon Dioxide 30 mmol/L N 22-32 Anion Gap 7 mmol/L N 2-11 Glucose 237 mg/dL High 70-100 Blood Urea Nitrogen 36 mg/dL High 6-24 Creatinine 1.46 mg/dL High 0.67-1.17 BUN/Creatinine Ratio 24.7 High 8-20 Calcium 8.9 mg/dL N 8.6-10.3 Total Protein 7.4 g/dL N 6.4-8.9 Albumin 3.2 g/dL N 3.2-5.2 Globulin 4.2 g/dL High 2-4 Albumin/Globulin Ratio 0.8 Low 1-3 Total Bilirubin 0.30 mg/dL N 0.2-1.0 Alkaline Phosphatase 59 U/L N 34-104 Alt 4 U/L Low 7-52 Ast 10 U/L Low 13-39 Egfr Non- 48.8 N >60 Egfr 62.7 N >60 29 Lipid Profile 10/16/2016 Triglycerides 97 mg/dL N 30 (Trig/Chol/HDL) [address] [place] [address] [phone] Cholesterol 139 mg/dL N 31 HDL Cholesterol 30.2 mg/dL N 32 LDL Cholesterol 89 mg/dL N 33 Laboratory test 10/16/2016 Hemoglobin A1c 13.4 % High Less [address] (Glyco HGB) than 6.0 [place] [address] [phone] Laboratory test 09/01/2016 Real Estate Transaction Manager In House Hemoglobin A1c 14.0 High 5-7 finding Laboratory test 11/11/2015 Troponin-I 0.10 ng/mL High <0.03 [address] (TnI) [place] [address] [phone] Arterial Blood 11/11/2015 O2 Device oxymask N Gas [address] [place] [address] [phone] Fio2 60 N PH Arterial 7.40 N 7.35-7.45 Pco2 Arterial 70 mmHg High 35-45 Po2 Arterial 125 mmHg High 80-100 O2 Saturation Arterial 99.7 % High 95-98 Base Excess Arterial 16.3 High -2.0-2.0 36 Hco3 Arterial 37.6 mmol/L High 19-31 Urine Microalbumin 11/11/2015 Urine Creatinine 89.79 mg/dL N Random [address] [place] [address] [phone] Ur Microalbumin (mg/L) 458.0 mg/L N Urine Microalbumin/Creatinine 510.0 ug/mg High <31 Laboratory test finding 11/11/2015 Real Estate Transaction Manager In House Hemoglobin A1c 7.9 High 5 -7 Laboratory test finding 07/29/2015 Real Estate Transaction Manager In House Hemoglobin A1c 12.2 High 5-7 Laboratory test finding 04/01/2015 Real Estate Transaction Manager In House Hemoglobin A1c 11.2 High 5-7 1 [facility] - Floor: 1, Rm #: [id number] 2 Because ethnic data is not always readily available, this report includes an eGFR for both -Americans and non- Americans. The National Kidney Disease Education Program (NKDEP) does not endorse the use of the MDRD equation for patients that are not between the ages of 18 and 70, are , have extremes of body size, muscle mass, or nutritional status, or are non- or non-. According to the National Kidney Foundation, irrespective of diagnosis, the stage of the disease is based on the level of kidney function: Stage Description GFR(mL/min/1.73 m(2)) 1 Kidney damage with normal or decreased GFR 90 2 Kidney damage with mild decrease in GFR 60-89 3 Moderate decrease in GFR 30-59 4 Severe decrease in GFR 15-29 5 Kidney failure <15 (or dialysis) 3 [facility] - Floor: 1, Rm #: [id number] 4 Critical Result LACT:4.8 Called to [id number] at: 20:39:50 by:[id number] Read back by:[id number] [facility] Severe Sepsis and Septic Shock Management Bundle Measure requires all lactic acids initially measuring >2.0 mmol/L be repeated. 5 Because ethnic data is not always readily available, this report includes an eGFR for both -Americans and non- Americans. The National Kidney Disease Education Program (NKDEP) does not endorse the use of the MDRD equation for patients that are not between the ages of 18 and 70, are , have extremes of body size, muscle mass, or nutritional status, or are non- or non-. According to the National Kidney Foundation, irrespective of diagnosis, the stage of the disease is based on the level of kidney function: Stage Description GFR(mL/min/1.73 m(2)) 1 Kidney damage with normal or decreased GFR 90 2 Kidney damage with mild decrease in GFR 60-89 3 Moderate decrease in GFR 30-59 4 Severe decrease in GFR 15-29 5 Kidney failure <15 (or dialysis) 6 Critical Result CO2:41 Called to [id number] at: 20:39:18 by:[id number] Read back by:[id number] 7 LEFT HEAL 8 SEE RESULT BELOW Name: JAMIE SERRANO : [address]: Thi Saleem NP Acct: [id number] Unit: [id number] AGE: 63 Location: WOUND Re10/25/18 SEX: M Status: REG REF SPEC: [id number] LIZZY: 10/25/18-1520 [facility] DR: Thi Saleem NP REQ: [id number] RECD: 10/25/18 STATUS: HENOK DAUGHERTY DR: Ismael Yoo MD _ SOURCE: WOUND SPDESC: ORDERED: Tissue Cult/GS COMMENTS: LEFT HEEL Procedure Result Reported Site Tissue Gram Stain Final 10/25/18- 1756 ML 1+ Epithelial Cells 1+ Neutrophils 2+ Gram Positive Cocci Tissue Culture Final 10/29/18- 1100 ML Organism 1 STAPHYLOCOCCUS AUREUS Quantity 3+ Organism 2 CORYNEBACTERIUM STRIATUM Quantity 1+ 1. STAPHYLOCOCCUS AUREUS M.I.C. RX --------- ------ Penicillin 0.12 S Clindamycin R This isolate is presumed to be resistant based on detection of inducible Clindamycin resistance. Clindamycin may still be effective in some patients. Erythromycin >=8 R Gentamicin <=0.5 S Linezolid 2 S Oxacillin 0.5 S * Quinupristin/Dalfopristin 0.5 S Rifampin <=0.5 S Tetracycline <=1 S Doxycycline - Deduced S * Minocycline - Deduced S Trimethoprim/Sulfamethoxazole <=10 S CONTINUED ON NEXT PAGE DEPARTMENT OF PATHOLOGY, [address] [place] [address] Radhames Oneal M.D. Director RODDYPR # [id number] Patient: JAMIE SERRANO [id number] (Continued) Specimen: [id number] Collected: 10/25/18 Received: 10/25/18 (Continued) Procedure Result Reported Site Tissue Culture Final (continued) 10/29/18- 1099 1. STAPHYLOCOCCUS AUREUS (continued) M.I.C. RX --------- ------ Vancomycin 1 S Imipenem-Deduced S * Ampicillin/Sulbactam-Deduced S Cefazolin-Deduced S * These antibiotics are not available in the Formulary Contact the Microbiology Department for any additional antibiotic reporting. * ML - Main Lab . END OF REPORT DEPARTMENT OF PATHOLOGY, [address] [place] [address] Radhames Oneal M.D. Director [facility] # [id number] 9 Reference ranges based on room air. 10 [facility] Severe Sepsis and Septic Shock Management Bundle Measure requires all lactic acids initially measuring >2.0 mmol/L be repeated. 11 >100 to <200 pg/mL: likely compensated congestive heart failure (CHF) 200 to 400 pg/mL: likely moderate CHF >400 pg/mL: likely moderate to severe CHF 12 Because ethnic data is not always readily available, this report includes an eGFR for both -Americans and non- Americans. The National Kidney Disease Education Program (NKDEP) does not endorse the use of the MDRD equation for patients that are not between the ages of 18 and 70, are , have extremes of body size, muscle mass, or nutritional status, or are non- or non-. According to the National Kidney Foundation, irrespective of diagnosis, the stage of the disease is based on the level of kidney function: Stage Description GFR(mL/min/1.73 m(2)) 1 Kidney damage with normal or decreased GFR 90 2 Kidney damage with mild decrease in GFR 60-89 3 Moderate decrease in GFR 30-59 4 Severe decrease in GFR 15-29 5 Kidney failure <15 (or dialysis) 13 Result TnIDx:0.04 Called to [id number] at: 11:18:21 by:[id number] Read back by: [id number] 14 SEE RESULT BELOW Name: JAMIE SERRANO : [address]: Angélica Rodriguez MD Acct: [id number] Unit: [id number] AGE: 63 Location: ICU [id number] Re07/18/18 SEX: M Status: ADM IN SPEC: [id number] LIZZY: 07/18/18-[address]: Sherif Lazo MD REQ: [id number] RECD: 07/18/18 STATUS: COMP [facility] DR: Ismael Yoo MD _ SOURCE: [facility]LOOD,[facility]: ORDERED: Blood Cult Procedure Result Reported Site Aerobic Culture Bottle Final 07/23/18- 1 ML No Growth Day 5 Anaerobic Culture Bottle Final 07/23/181 ML No Growth Day 5 * ML - Main Lab . END OF REPORT DEPARTMENT OF PATHOLOGY, [address] [place] [address] Radhames Oneal M.D. Director [facility] # [id number] 15 Desirable: <150 Borderline High: 150-199 High: 200-499 Very High: >500 16 Desirable: <200 Borderline High: 200-239 High: >239 17 Low: <40 Desirable: 40-60 High: >60 18 Desirable: <100 Near Optimal: 100-129 Borderline High: 130-159 High: 160-189 Very High: >189 19 Because ethnic data is not always readily available, this report includes an eGFR for both -Americans and non- Americans. The National Kidney Disease Education Program (NKDEP) does not endorse the use of the MDRD equation for patients that are not between the ages of 18 and 70, are , have extremes of body size, muscle mass, or nutritional status, or are non- or non-. According to the National Kidney Foundation, irrespective of diagnosis, the stage of the disease is based on the level of kidney function: Stage Description GFR(mL/min/1.73 m(2)) 1 Kidney damage with normal or decreased GFR 90 2 Kidney damage with mild decrease in GFR 60-89 3 Moderate decrease in GFR 30-59 4 Severe decrease in GFR 15-29 5 Kidney failure <15 (or dialysis) 20 AM 8.7-22.4 PM <10 21 Bulk Station Operator: [id number] Bulk Station Operator: [id number] Bulk Station Operator: [id number] Bulk Station Operator: [id number] 25 Bulk Station Operator: [id number] 26 Bulk Station Operator: [id number] 27 SEE RESULT BELOW Name: JAMIE SERRANO : [address]: Fito Manzo MD Acct: [id number] Unit: [id number] AGE: 61 Location: [facility] 418- Re11/29/16 SEX: M Status: ADM IN SPEC: [id number] LIZZY: 11/28/16 [facility] DR: Dev George MD REQ: [id number] RECD: 11/28/16 STATUS: COMP [facility] DR: Ismael Yoo MD _ SOURCE: STOOL SPDESC: ORDERED: Hemoccult, C. diff PCR, Stool Culture, Fecal Lactoferr COMMENTS: Unable to Perform Shiga Toxin Testing. Insufficient Growth of Enteric Bacteria. Procedure Result Reported Site Stool Culture Final 11/30/16- 1341 ML Result No growth of normal enteric august No enteric pathogens isolated Testing for Salmonella, Shigella, Aeromonas, Plesiomonas, Yersinia and Campylobacter are included in a Stool Culture. Vibrio spp not routinely tested for in a stool culture. If testing is desired, please request specifically when placing test order. Sensitivities not routinely performed on stool isolates, as antibiotics may prolong the carriage rate of bacteria. Please contact the microbiology lab if sensitivities are required. Stool Specimen Description Final 11/28/16- 1919 ML Stool Color Light Brown Stool Form Nonformed Stool Consistency Liquid Shiga Toxin 1 2 Final 11/30/16- 1614 ML Test not performed C. difficile PCR Final 11/28/16- 2049 ML Organism 1 027 Presumptive NEGATIVE Organism 2 Toxigenic C.diff NEGATIVE CONTINUED ON NEXT PAGE * ML=Testing performed at Main Lab DEPARTMENT OF PATHOLOGY, [address] [place] [address] Radhames Oneal M.D. Director JAL[facility] # [id number] Patient: JAMIE SERRANO [id number] (Continued) Specimen: [id number] Collected: 11/28/16 Received: 11/28/16 (Continued) Procedure Result Reported Site C. difficile PCR Final (continued) 11/28/16- 2049 Fecal Lactoferrin (Stool WBC) Final 11/28/16- 1946 ML Fecal Lactoferrin Negative by Immunoassay Stool Occult Blood Final 11/28/16- 1918 ML Stool Occult Blood Negative * ML - MAIN LAB ([facility]) . END OF REPORT * ML=Testing performed at Main Lab DEPARTMENT OF PATHOLOGY, [address] [place] [address] Radhames Oneal M.D. Director [facility] # [id number] 28 Serum levels of PSA measured using the [employer] DXI Hybritech immunoassay should not be interpreted as absolute evidence of the presence or absence of disease. The PSA value should be used in conjunction with other pertinent clinical diagnostic procedures. A PSA value in the range of 0.1 to 0.6 ng/ml is indeterminate if being used as an indicator of recurrent or residual disease. The values obtained with different assay methods or kits cannot be used interchangeably. 29 Because ethnic data is not always readily available, this report includes an eGFR for both -Americans and non- Americans. The National Kidney Disease Education Program (NKDEP) does not endorse the use of the MDRD equation for patients that are not between the ages of 18 and 70, are , have extremes of body size, muscle mass, or nutritional status, or are non- or non-. According to the National Kidney Foundation, irrespective of diagnosis, the stage of the disease is based on the level of kidney function: Stage Description GFR(mL/min/1.73 m(2)) 1 Kidney damage with normal or decreased GFR 90 2 Kidney damage with mild decrease in GFR 60-89 3 Moderate decrease in GFR 30-59 4 Severe decrease in GFR 15-29 5 Kidney failure <15 (or dialysis) 30 Desirable <150 Borderline high 150-199 High 200-499 Very High >500 31 Desirable <200 Borderline high 200-239 High >239 32 Low <40 Desirable: 40-60 High: >60 33 Desirable: <100 mg/dL Near Optimal: 100-129 mg/dL Borderline High: 130-159 mg/dL High: 160-189 mg/dL Very High: >189 mg/dL 34 Therapeutic target for the treatment of diabetes Mellitus patients is <7% HBA1C, and in selective patients <6.0%.Please refer to [place] [employer] Diabetic care guidelines for further information. 35 Reference Range and Interpretation: TnI (ng/mL) Interpretation Less Than 0.03 ng/mL Not supportive of diagnosis of NV 0.03 - 0.50 ng/mL Indeterminate: suggest serial studies if clinically indicated. Greater than 0.5 ng/mL Consistent with diagnosis of NV 36 Reference ranges based on room air. Procedures Date Code Description Status 10/25/2018 40271 Debridement Skin,& sq Tissue Completed 09/12/2018 94420 Removal Devitalization Tissue Wound Less Than Equal 20 Completed Square CM 09/02/2018 15039 Chemical Cautery Granulation Tissue Completed 08/19/2018 41030 Chemical Cautery Granulation Tissue Completed 07/19/2018 37087 EKG, Interpretation Only Completed 07/18/2018 87434 ECHO Transthorasic Realtime 2D W Doppler & Color Flow Completed Hosp 11/22/2017 [id number] Diabetic Retinal Eye Exam Completed 06/11/2017 65825 Treadmill Interp/Report Only Completed 06/11/2017 05401 Stress Test Supervsn W/Out I/R Completed 04/17/2017 71973 EKG Tracing & Interpretation Completed 04/06/2017 18681 ECHO Transthoracic, Real-Time 2D With Doppler And Completed Color Flow 01/16/2017 860612730 Diabetic Retinal Eye Exam Completed 03/14/2016 13680 Polysomnography Sleep Staging 4+ Parameters Completed 11/12/2015 90601 ECHO Transthorasic Realtime 2D W Doppler & Color Flow Completed Hosp 11/12/2015 69528 EKG, Interpretation Only Completed 06/01/2015 [id number] Diabetic Retinal Eye Exam Completed 04/20/2014 70460 ECHO Transthorasic Realtime 2D W Doppler & Color Flow Completed Hosp 04/20/2014 89225 EKG, Interpretation Only Completed 09/11/2013 53503 ECHO Transthorasic Realtime 2D W Doppler & Color Flow Completed Hosp Encounters Type Date Location Provider Dx Diagnosis Office Visit 11/29/2018 Real Estate Transaction Manager Internal Rosmery Fisher MD L97.529 Non-pressure 2:40p Medicine - chronic ulcer oth [place] prt left foot w unsp severity E11.621 Type 2 diabetes mellitus with foot ulcer I73.9 Peripheral vascular disease, unspecified 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 D50.9 Iron deficiency anemia, unspecified J44.9 Chronic obstructive pulmonary disease, unspecified I50.22 Chronic systolic (congestive) heart failure Office Visit 11/04/2018 10:54a [facility] Angela Michael, E11.621 Type 2 Assoc,pc MANAGEMENT COORDINATOR diabetes Hospitalists mellitus with foot ulcer L97.529 Non-pressure chronic ulcer oth prt left foot w unsp severity A41.9 Sepsis, unspecified organism I73.9 Peripheral vascular disease, unspecified E11.51 Type 2 diabetes w diabetic peripheral angiopath w/o gangrene J96.12 Chronic respiratory failure with hypercapnia J44.9 Chronic obstructive pulmonary disease, unspecified E66.2 Morbid (severe) obesity with alveolar hypoventilation I48.91 Unspecified atrial fibrillation I50.22 Chronic systolic (congestive) heart failure I11.0 Hypertensive heart disease with heart failure Office Visit 11/03/2018 10:54a [facility] Angela Michael, N17.9 Acute kidney Assoc,pc MANAGEMENT COORDINATOR failure, Hospitalists unspecified A41.9 Sepsis, unspecified organism E11.621 Type 2 diabetes mellitus with foot ulcer I73.9 Peripheral vascular disease, unspecified E11.51 Type 2 diabetes w diabetic peripheral angiopath w/o gangrene I48.91 Unspecified atrial fibrillation I50.22 Chronic systolic (congestive) heart failure J96.12 Chronic respiratory failure with hypercapnia J44.9 Chronic obstructive pulmonary disease, unspecified 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 insulin Office Visit 11/02/2018 [facility] Xuan N17.9 Acute kidney 10:53a Assoc,pc [place], MANAGEMENT COORDINATOR failure, Hospitalists unspecified A41.9 Sepsis, unspecified organism E11.621 Type 2 diabetes mellitus with foot ulcer L97.529 Non-pressure chronic ulcer oth prt left foot w unsp severity D64.9 Anemia, unspecified I50.9 Heart failure, unspecified 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 N18.3 Chronic kidney disease, stage 3 (moderate) E66.2 Morbid (severe) obesity with alveolar hypoventilation J96.12 Chronic respiratory failure with hypercapnia 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 insulin Office Visit 11/01/2018 [facility] N17.9 Acute kidney 10:53a Assocpurnima, MANAGEMENT COORDINATOR failure, Hospitalists unspecified A41.9 Sepsis, unspecified organism E11.621 Type 2 diabetes mellitus with foot ulcer L97.529 Non-pressure chronic ulcer oth prt left foot w unsp severity J96.12 Chronic respiratory failure with hypercapnia D64.9 Anemia, unspecified I50.9 Heart failure, unspecified N18.3 Chronic kidney disease, stage 3 (moderate) 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 Office Visit 10/31/2018 Orthopedic Kierra Concepcion, L97.429 Non-prs chronic 2:19p Services Of Analy PA ulcer of left heel and midfoot w unsp severt Office Visit 10/30/2018 [facility] N17.9 Acute kidney 10:52a Asspurnima aceves NP failure, Hospitalists unspecified E11.621 Type 2 diabetes mellitus with foot ulcer L97.529 Non-pressure chronic ulcer oth prt left foot w unsp severity D64.9 Anemia, unspecified I50.9 Heart failure, unspecified 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 N18.3 Chronic kidney disease, stage 3 (moderate) J96.12 Chronic respiratory failure with hypercapnia Z79.4 USP (current) use of insulin Office Visit 10/29/2018 [facility] Krut Mcgarry L89.629 Pressure ulcer of 7:37a For Infectious Tata Payne left heel, Diseases unspecified stage L03.116 Cellulitis of left lower limb M60.074 Infective myositis, left foot N17.9 Acute kidney failure, unspecified E11.9 Type 2 diabetes mellitus without complications B95.61 Methicillin suscep staph infct causing dis classd elswhr Office Visit 10/29/2018 [facility] N17.9 Acute kidney 10:51a Assoc,purnima Benítez, MANAGEMENT COORDINATOR failure, Hospitalists unspecified A41.9 Sepsis, unspecified organism E11.621 Type 2 diabetes mellitus with foot ulcer I50.9 Heart failure, unspecified J96.12 Chronic respiratory failure with hypercapnia N18.3 Chronic kidney disease, stage 3 (moderate) Z79.4 USP (current) use of insulin E66.2 Morbid (severe) obesity with alveolar hypoventilation 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 Office Visit 10/29/2018 Orthopedic Robert Gomez, L89.629 Pressure ulcer 10:36a Services Of Analy GONZALEZ of left heel, unspecified stage Office Visit 10/28/2018 [facility] [place] Stern, N17.9 Acute kidney 10:39a Assoc,pc PA failure, Hospitalists unspecified J96.92 Respiratory failure, unspecified with hypercapnia D64.9 Anemia, unspecified E11.51 Type 2 diabetes w diabetic peripheral angiopath w/o gangrene I73.9 Peripheral vascular disease, unspecified E11.621 Type 2 diabetes mellitus with foot ulcer L97.529 Non-pressure chronic ulcer oth prt left foot w unsp severity Z79.4 USP (current) use of insulin Office Visit 10/27/2018 10:36a Orthopedic Shelby Garrido, L89.629 Pressure ulcer of Services Of MD saucedo heel, C.M.A. unspecified stage E11.621 Type 2 diabetes mellitus with foot ulcer Office Visit 10/27/2018 10:38a [facility] [place] N17.9 Acute kidney Assoc,pc [place], PA failure, Hospitalists unspecified A41.9 Sepsis, unspecified organism E11.621 Type 2 diabetes mellitus with foot ulcer L97.529 Non-pressure chronic ulcer oth prt left foot w unsp severity E66.2 Morbid (severe) obesity with alveolar hypoventilation I73.9 Peripheral vascular disease, unspecified E11.51 Type 2 diabetes w diabetic peripheral angiopath w/o gangrene J96.12 Chronic respiratory failure with hypercapnia Office Visit 10/26/2018 10:37a [facility] [place] N17.9 Acute kidney Assoc,pc [place], [place] failure, Hospitalists unspecified J44.1 Chronic obstructive pulmonary disease w (acute) exacerbation A41.9 Sepsis, unspecified organism E11.621 Type 2 diabetes mellitus with foot ulcer L97.529 Non-pressure chronic ulcer oth prt left foot w unsp severity E87.2 Acidosis I50.9 Heart failure, unspecified Office Visit 10/26/2018 10:35a Orthopedic Shelby Garrido L89.629 Pressure ulcer of Services Of MD lewis ellison, C.M.A. unspecified stage E11.621 Type 2 diabetes mellitus with foot ulcer Office Visit 10/25/2018 10:37a [facility] Chey A41.9 Sepsis, Assoc,purnima Costa MD unspecified Hospitalists organism E11.621 Type 2 diabetes mellitus with foot ulcer E87.2 Acidosis N17.9 Acute kidney failure, unspecified E66.2 Morbid (severe) obesity with alveolar hypoventilation I50.9 Heart failure, unspecified J44.1 Chronic obstructive pulmonary disease w (acute) exacerbation L97.529 Non-pressure chronic ulcer oth prt left foot w unsp severity Office Visit 10/25/2018 1:15p Wound Care Thi Saleem, L03.818 Cellulitis of Center AT [facility] DNP, RN, SOFTWARE INSTALLATION ENGINEER-BC other sites M86.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, left ankle and foot E11.621 Type 2 diabetes mellitus with foot ulcer Office Visit 10/14/2018 1:00p Wound Care Thi M86.572 Oth chronic Center AT JUANIS Saleem RN, hematogenous [facility] SOFTWARE INSTALLATION ENGINEER- osteomyelitis, left ankle and foot L89.513 Pressure ulcer of right ankle, stage 3 Office Visit 09/30/2018 1:00p Wound Care Thi Saleem, L97.311 Non- prs chronic Center AT [facility] [place] XUAN OLIVAREZ, [facility]- ulcer of right ankle limited to brkdwn skin E11.622 Type 2 diabetes mellitus with other skin ulcer Office Visit 09/20/2018 Orthopedic Robert Gomez, Z79.84 USP 1:30p Services Of (current) use of C.M.A. oral hypoglycemic drugs E11.621 Type 2 diabetes mellitus with foot ulcer L97.319 Non-pressure chronic ulcer of right ankle with unsp severity Office Visit 09/13/2018 9:50a [facility] Sherrill Mcgarry E11.621 Type 2 Infectious Tata Payne diabetes Diseases mellitus with foot ulcer L97.319 Non-pressure chronic ulcer of right ankle with unsp severity Office Visit 08/28/2018 10:30a [facility] Raman G. I70.235 [facility] [place] Medicine Of Liang Steel M.D. arteries of right leg w ulcer oth prt foot I70.244 [facility] [place] art of left leg w ulcer of heel and midfoot Office Visit 08/26/2018 3:45p Orthopedic Robert Gomez, E11.621 Type 2 Services Of diabetes C.M.A. mellitus with foot ulcer L89.519 Pressure ulcer of right ankle, unspecified stage L97.529 Non-pressure chronic ulcer oth prt left foot w unsp severity Office Visit 08/20/2018 11:45a Pulmonology And Shonda G47.33 Obstructive sleep Sleep Services Of MD Lefty apnea (adult) [facility] (pediatric) E66.2 Morbid (severe) obesity with alveolar hypoventilation J44.9 Chronic obstructive pulmonary disease, unspecified R09.02 Hypoxemia Office Visit 08/19/2018 12:45p Wound Care Thi Saleem E11.621 Type 2 diabetes Center AT [facility] [place] XUAN OLIVAREZ, SOFTWARE INSTALLATION ENGINEER-BC mellitus with foot ulcer L89.513 Pressure ulcer of right ankle, stage 3 M86.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, left ankle and foot M14.671 Charcot's joint, right ankle and foot Office Visit 08/12/2018 [place] Cornel Mcgarry E11.42 Type 2 diabetes 2:00p For Infectious Tata Payne mellitus with Diseases diabetic polyneuropathy M86.671 Other chronic osteomyelitis, right ankle and foot E11.622 Type 2 diabetes mellitus with other skin ulcer L97.319 Non-pressure chronic ulcer of right ankle with unsp severity Office Visit 08/09/2018 10:00a Orthopedic Robert Gomez, E11.621 Type 2 Services Of MD joseph Beckford mellitus with foot ulcer E11.42 Type 2 diabetes mellitus with diabetic polyneuropathy L97.319 Non-pressure chronic ulcer of right ankle with unsp severity L97.529 Non-pressure chronic ulcer oth prt left foot w unsp severity Office Visit 08/01/2018 8:47a [facility] Misael Rodriguez, I48.91 Unspecified atrial Assoc,pc MD fibrillation Hospitalists J96.21 Acute and chronic respiratory failure with hypoxia I73.9 Peripheral vascular disease, unspecified I50.9 Heart failure, unspecified E66.2 Morbid (severe) obesity with alveolar hypoventilation D64.9 Anemia, unspecified J44.9 Chronic obstructive pulmonary disease, unspecified E11.51 Type 2 diabetes w diabetic peripheral angiopath w/o gangrene Office Visit 07/31/2018 8:47a [facility] Misael Rodriguez, J96.02 Acute respiratory Assoc,purnima GONZALEZ failure with Hospitalists hypercapnia E66.2 Morbid (severe) obesity with alveolar hypoventilation J44.9 Chronic obstructive pulmonary disease, unspecified M86.9 Osteomyelitis, unspecified I73.9 Peripheral vascular disease, unspecified E11.51 Type 2 diabetes w diabetic peripheral angiopath w/o gangrene I50.31 Acute diastolic (congestive) heart failure 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 insulin Office Visit 07/30/2018 8:46a [facility] Misael Rodriguez, J96.02 Acute respiratory Assoc,purnima GONZALEZ failure with Hospitalists hypercapnia I73.9 Peripheral vascular disease, unspecified D64.9 Anemia, unspecified I50.31 Acute diastolic (congestive) heart failure E11.51 Type 2 diabetes w diabetic peripheral angiopath w/o gangrene Office Visit 07/30/2018 11:39a [facility] Shonda J96.21 Acute and chronic Sleep Services Of MD Lef[place] respiratory Real Estate Transaction Manager failure with hypoxia J96.22 Acute and chronic respiratory failure with hypercapnia I48.91 Unspecified atrial fibrillation J44.9 Chronic obstructive pulmonary disease, unspecified Office Visit 07/29/2018 [facility] I73.9 Peripheral 8:46a purnima Calixto M.D. vascular Hospitalists disease, unspecified E66.2 Morbid (severe) obesity with alveolar hypoventilation I50.31 Acute diastolic (congestive) heart failure D64.9 Anemia, unspecified M86.9 Osteomyelitis, unspecified E11.51 Type 2 diabetes w diabetic peripheral angiopath w/o gangrene Office Visit 07/28/2018 [facility] I73.9 Peripheral 8:46a purnima Calixto M.D. vascular Hospitalists disease, unspecified J96.02 Acute respiratory failure with hypercapnia E66.2 Morbid (severe) obesity with alveolar hypoventilation M86.9 Osteomyelitis, unspecified I50.31 Acute diastolic (congestive) heart failure E11.51 Type 2 diabetes w diabetic peripheral angiopath w/o gangrene Office Visit 07/27/2018 [facility] I73.9 Peripheral 8:46a purnima Calixto M.D. vascular Hospitalists disease, unspecified E11.51 Type 2 diabetes w diabetic peripheral angiopath w/o gangrene J96.02 Acute respiratory failure with hypercapnia M86.9 Osteomyelitis, unspecified Office Visit 07/27/2018 11:38a [facility] Shonda J96.21 Acute and chronic Sleep Services Of MD [place] respiratory Real Estate Transaction Manager failure with hypoxia J96.22 Acute and chronic respiratory failure with hypercapnia I48.91 Unspecified atrial fibrillation I95.9 Hypotension, unspecified Office Visit 07/26/2018 [facility] I73.9 Peripheral 8:45a purnima Calixto M.D. vascular Hospitalists disease, unspecified J96.02 Acute respiratory failure with hypercapnia E66.2 Morbid (severe) obesity with alveolar hypoventilation J44.9 Chronic obstructive pulmonary disease, unspecified I27.20 Pulmonary hypertension, unspecified M86.9 Osteomyelitis, unspecified I50.31 Acute diastolic (congestive) heart failure Office Visit 07/25/2018 [facility] I73.9 Peripheral 8:45a purnima Calixto M.D. vascular Hospitalists disease, unspecified J96.02 Acute respiratory failure with hypercapnia M86.9 Osteomyelitis, unspecified I50.31 Acute diastolic (congestive) heart failure E11.51 Type 2 diabetes w diabetic peripheral angiopath w/o gangrene Office Visit 07/24/2018 [facility] Betzaida Martinez I50.9 Heart failure , 8:45a purnima Calixto M.D. unspecified Hospitalists N17.9 Acute kidney failure, unspecified I48.91 Unspecified atrial fibrillation E11.22 Type 2 diabetes mellitus w diabetic chronic kidney disease E11.649 Type 2 diabetes mellitus with hypoglycemia without coma M86.9 Osteomyelitis, unspecified Office Visit 07/23/2018 [facility] J96.02 Acute 8:44a purnima Calixto MD respiratory Hospitalists failure with hypercapnia N17.9 Acute kidney failure, unspecified I48.91 Unspecified atrial fibrillation M86.9 Osteomyelitis, unspecified E11.22 Type 2 diabetes mellitus w diabetic chronic kidney disease E66.2 Morbid (severe) obesity with alveolar hypoventilation Office Visit 07/22/2018 [facility] N17.9 Acute kidney 8:44a purnima Calixto MD failure, Hospitalists unspecified I27.20 Pulmonary hypertension, unspecified E11.22 Type 2 diabetes mellitus w diabetic chronic kidney disease M86.9 Osteomyelitis, unspecified I48.91 Unspecified atrial fibrillation R41.82 Altered mental status, unspecified [facility] failure , 8:44a purnima Calixto M.D. unspecified Hospitalists J96.01 Acute respiratory failure with hypoxia N17.9 Acute kidney failure, unspecified E11.22 Type 2 diabetes mellitus w diabetic chronic kidney disease 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 insulin Office Visit 07/20/2018 [facility] Betzaida Michelle, I50.31 Acute diastolic 8:44a Assoc,purnima MKamran (congestive) Hospitalists heart failure J96.01 Acute respiratory failure with hypoxia I48.91 Unspecified atrial fibrillation E11.22 Type 2 diabetes mellitus w diabetic chronic kidney disease M86.9 Osteomyelitis, unspecified I12.9 Hypertensive chronic kidney disease w stg 1-4/unsp chr kdny Z79.4 USP (current) use of insulin Office Visit 07/19/2018 7:50a [facility] Kurt Mcgarry E11.621 Type 2 Infectious Tata Payne diabetes Diseases mellitus with foot ulcer L97.529 Non-pressure chronic ulcer oth prt left foot w unsp severity E11.622 Type 2 diabetes mellitus with other skin ulcer L97.319 Non-pressure chronic ulcer of right ankle with unsp severity I89.0 Lymphedema, not elsewhere classified Office Visit 07/19/2018 [facility] Angélica N17.9 Acute kidney 8:43a Assoc,purnima Rodriguez MD failure, Hospitalists unspecified E11.22 Type 2 diabetes mellitus w diabetic chronic kidney disease I50.9 Heart failure, unspecified J96.01 Acute respiratory failure with hypoxia I48.91 Unspecified atrial fibrillation M86.9 Osteomyelitis, unspecified Office Visit 07/18/2018 8:42a [facility] Irasema Priyank, I48.91 Unspecified atrial Assoc,pc N.P. fibrillation Hospitalists I50.23 Acute on chronic systolic (congestive) heart failure J96.21 Acute and chronic respiratory failure with hypoxia E11.22 Type 2 diabetes mellitus w diabetic chronic kidney disease Office Visit 07/18/2018 Orthopedic Robert Jason, S91.002A Unspecified open 8:52a Services Of wound, left C.M.A. ankle, initial encounter I73.9 Peripheral vascular disease, unspecified E11.69 Type 2 diabetes mellitus with other specified complication Office Visit 12/18/2017 Liang Guevara E11.65 Type 2 diabetes 2:00p Tonya Yoo M.D. mellitus with [address] hyperglycemia I10 Essential (primary) hypertension Office Visit 11/27/2017 [facility] Rico Guevara E11.65 Type 2 diabetes 1:20p Tnoya Yoo M.D. mellitus with [address] hyperglycemia I10 Essential (primary) hypertension E78.2 Mixed hyperlipidemia E66.8 Other obesity Office Visit 04/27/2017 [facility] Internal [place] E11.65 Type 2 diabetes 1:20p Tonya Yoo M.D. mellitus with [address] hyperglycemia I10 Essential (primary) hypertension E78.2 Mixed hyperlipidemia Office Visit 04/17/2017 Chetna Santos I42.9 Cardiomyopathy, 10:40a [facility] [place], DO unspecified [facility] FAC E11.65 Type 2 diabetes mellitus with hyperglycemia E78.5 Hyperlipidemia, unspecified N18.9 Chronic kidney disease, unspecified E66.8 Other obesity J96.90 Respiratory failure, unsp, unsp w hypoxia or hypercapnia G47.30 Sleep apnea, unspecified Office Visit 02/23/2017 8:40a [facility] Internal Moe Vazquez, Z01.818 Encounter for other Medicine - MANAGEMENT COORDINATOR preprocedural [place] examination E11.65 Type 2 diabetes mellitus with hyperglycemia J44.1 Chronic obstructive pulmonary disease w (acute) exacerbation I10 Essential (primary) hypertension I42.9 Cardiomyopathy, unspecified G47.33 Obstructive sleep apnea (adult) (pediatric) Office Visit 01/15/2017 [facility] [place] E11.65 Type 2 diabetes 1:40p Tonya Yoo M.D. mellitus with [address] hyperglycemia J44.1 Chronic obstructive pulmonary disease w (acute) exacerbation I10 Essential (primary) hypertension I42.9 Cardiomyopathy, unspecified Office Visit 11/30/2016 [facility] Fito J44.1 Chronic 2:21p Asspurnima aceves MD obstructive Hospitalists pulmonary disease w (acute) exacerbation N17.9 Acute kidney failure, unspecified 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 insulin E11.9 Type 2 diabetes mellitus without complications Office Visit 11/29/2016 [facility] Fito J44.1 Chronic 2:21p purnima Calixto MD obstructive Hospitalists pulmonary disease w (acute) exacerbation E11.9 Type 2 diabetes mellitus without complications 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 insulin R74.8 Abnormal levels of other serum enzymes Office Visit 11/28/2016 [facility] Unruly Vaughn J44.1 Chronic 2:20p Asspurnima aceves II, M.D. obstructive Hospitalists pulmonary disease w (acute) exacerbation R65.10 Sirs of non-infectious origin w/o acute organ dysfunction R74.8 Abnormal levels of other serum enzymes E11.9 Type 2 diabetes mellitus without complications Office Visit 09/01/2016 1:20p [facility] Internal Ismael E11.9 Type 2 diabetes Tnoya Yoo M.D. mellitus without [address] complications J96.11 Chronic respiratory failure with hypoxia I10 Essential (primary) hypertension Z12.5 Encounter for screening for malignant neoplasm of prostate Office Visit 02/17/2016 11:00a Pulmonology And Shonda J96.11 Chronic Sleep Services Of MD Lefty respiratory Real Estate Transaction Manager failure with hypoxia I27.2 Other secondary pulmonary hypertension E66.01 Morbid (severe) obesity due to excess calories G47.9 Sleep disorder, unspecified Office Visit 12/10/2015 11:00a [facility] Internal [place] J96.11 Chronic Tonya Yoo M.D. respiratory [place] failure with hypoxia E11.9 Type 2 diabetes mellitus without complications I10 Essential (primary) hypertension G47.30 Sleep apnea, unspecified E66.01 Morbid (severe) obesity due to excess calories Office Visit 11/12/2015 9:22a [facility] Xochitl J96.11 Chronic Assoc,pc Tata Shabazz respiratory Hospitalists failure with hypoxia N17.9 Acute kidney failure, unspecified R79.89 Other specified abnormal findings of blood chemistry E11.9 Type 2 diabetes mellitus without complications Office Visit 11/11/2015 9:21a [facility] Irasema Yost J96.11 Chronic Assoc,pc N.PAnup respiratory Hospitalists failure with hypoxia N17.9 Acute kidney failure, unspecified R79.89 Other specified abnormal findings of blood chemistry E11.9 Type 2 diabetes mellitus without complications Office Visit 11/11/2015 1:00p [facility] Internal [place]mael Yoo, I10 Essential (primary) Medicine - Nam.Zeferino hypertension [address] I42.9 Cardiomyopathy, unspecified E11.65 Type 2 diabetes mellitus with hyperglycemia R09.02 Hypoxemia Z01.818 Encounter for other preprocedural examination H26.9 Unspecified cataract Office Visit 07/29/2015 10:20a [facility] Internal Ismael Yoo, Z23 Encounter for Medicine - M.D. immunization [address] E11.65 Type 2 diabetes mellitus with hyperglycemia Z01.818 Encounter for other preprocedural examination I42.9 Cardiomyopathy, unspecified E66.01 Morbid (severe) obesity due to excess calories H26.9 Unspecified cataract Office Visit 04/01/2015 1:00p [facility] [place] 401.1 Hypertension Tonya Yoo M.D. Benign [address] 278.00 Obesity Unspec 250.02 Diabetes Mellitus W/O Compl Type II Or Unspec Type Uncontrol V76.44 Screening For Malig Greg Prostate Office Visit 09/15/2014 [facility] [place] 250.60 Diabetes W/ 2:00p Tonya Yoo M.D. Neurological [place] Manifestations Type II Controlled 401.1 Hypertension Benign 110.1 Dermatophytosis Nail V76.44 Screening For Malig Greg Prostate 278.00 Obesity Unspec 285.9 Anemia Unspec V03.82 Streptococcus Pneumoniae Vaccination Spec Other 250.00 Diabetes Mellitus W/O Compl Type II Or Unspec Controlled Office [facility] 7[facility] Hypoxemia [place], Hospitalists MKamran 428.0 Congestive Heart Failure Unspecified 518.83 Respiratory Failure Chronic 780.97 Altered Mental Status Office Visit 04/26/2014 3[facility], 799.02 Hypoxemia Assoc, Hospitalists MKamran 428.0 Congestive Heart Failure Unspecified 518.83 Respiratory Failure Chronic 780.97 Altered Mental Status Office Visit 04/25/2014 3:[facility], 799.02 Hypoxemia Assoc, Hospitalists MKamran 428.0 Congestive Heart Failure Unspecified 518.83 Respiratory Failure Chronic 780.97 Altered Mental Status Office Visit 04/24/2014 3:00p [facility] Simón Sanchez, 799.02 Hypoxemia Assoc, Hospitalists MKamran 428.0 Congestive Heart Failure Unspecified 518.83 Respiratory Failure Chronic 780.97 Altered Mental Status Office Visit 04/23/2014 2:59p [facility] Betzaida Martinez, 799.02 Hypoxemia Asspurnima aceves M.D. Hospitalists 428.0 Congestive Heart Failure Unspecified 518.83 Respiratory Failure Chronic Office Visit 04/22/2014 2:59p [facility] Betzaida Martinez, 799.02 Hypoxemia purnima Calixto M.D. Hospitalists 428.0 Congestive Heart Failure Unspecified 518.83 Respiratory Failure Chronic Office Visit 04/21/2014 2:58p [facility] Betzaida Martinez, 799.02 Hypoxemia Assoc,pc Tata Hospitalists 518.83 Respiratory Failure Chronic 428.0 Congestive Heart Failure Unspecified Office Visit 04/20/2014 2:57p [facility] Shakira Dudley, 799.02 Hypoxemia Assoc,pc Hospitalists DO 518.83 Respiratory Failure Chronic 780.97 Altered Mental Status 428.0 Congestive Heart Failure Unspecified Office Visit 04/19/2014 2:54p [facility] Shakira Eatonroger, 799.02 Hypoxemia Assoc,pc Hospitalists DO 518.83 Respiratory Failure Chronic 780.97 Altered Mental Status 428.0 Congestive Heart Failure Unspecified Plan of Treatment Future Appointment(s):06/16/2019 11:30 am - Shonda Olea MD at [facility]03/03/2019 2:20 pm - Rosmery Fisher MD at [facility] Internal Medicine [facility]12/12/2018 - Shonda Olea MDJ44.9 Chronic obstructive pulmonary disease, unspecifiedFollow up:6 [id number] Obstructive sleep apnea ( adult) (pediatric)R09.02 Hypoxemia
--- OUTSIDE RECORDS SUMMARY | 2018-12-27 14:26 | XMS REPORT | Continuity of Care Document ---
:1955 External Reference #:[id number] Author Name Jazmin Castrejon Care Team Providers Name Role Phone Ismael Yoo MD Primary Care Physician Unavailable Payers Date Identification Numbers Payment Provider Subscriber Policy Number: [id number] Medicare Jamie Serrano PayID: [id number] [address] [place] [address] Effective: 2011 Policy Number: [id number] Medicare Jamie Serrano Expires: 2018 PayID: [id number] [address] [place] [address] Expires: 2018 Policy Number: [id number] Medicaid Jamie Serrano PayID: [id number] [address] [place] [address] Advance Directives Type Date Description Status Comment [...] M.D. Active Onset: 12/10/2015 Chronic hypoxemic respiratory Ismeal Yoo M.D. Active failure Onset: 02/17/2016 Chronic pulmonary heart disease Shonda Olea MD Active Onset: 02/17/2016 Disturbance in sleep behavior Shonad Olea MD Active Onset: 10/16/2016 Candidiasis Ismael [...] Rodriguez MD Active hypoxia Onset: 07/19/2018 Osteomyelitis, unspecified Angélica Rodriguez MD Active Onset: 07/20/2018 Acute [...] Active diabetic polyneuropathy Onset: 08/28/2018 Atherosclerosis of [place] arteries Raman Steel M.D. Active of right leg with ulceration of other part of foot Onset: 08/28/2018 Atherosclerosis of [place] arteries Raman Steel M.D. Active of left [...] Unknown Marital Status Single Lives With Alone Cal Davison Tobacco Use Start: Unknown End: Former Cigarette Smoker 1 Unknown Pack Daily Tobacco Use Start: Unknown Quit in 2002 Smoking Status Reviewed: 11/29/18 Quit in 2002 ETOH Use Never used [...] mick Crooks two M.DAnup,FACP times daily Furosemide 09/13/20 Active Tablets 80mg 45tab Take 1/2 [place] 17 s Tablet By Pachika Mouth , M.D. Every Day Onetouch Verio 04/27/20 Active Kit w/Device 1unit test E11.65 [place] 17 s twice a Pachikara day and , M.D. as needed dx e11.65, 04/27/17 Pantoprazole 02/02/[address] 40mg 14tab take 1 Waqar Sodium 17 s tablet by Zeferino Salter mouth M.D.,FACP every morning 1 hour before breakfast Onetouch Verio 12/06/19 Active Strips 100un test E11.65 Wa[place] 17 its twice a D. Joie, day and M.D.,FACP as needed dx e11.65, 04/27/17 Onetouch 12/06/19 Active Misc 200un test [place] Lancets 17 its twice a D. Caraway, day and M.D.,FACP as needed dx e11.65, 04/27/17 Tamsulosin HCL 12/01/19 Active Capsules 0.4mg 30cap Take 1 Ismael 17 s Capsule Pachikara By Mouth , M.D. Every Day AT Bedtime Tradjenta 10/16/19 Active Tablets 5mg 90tab Take 1 E11.65 [place] 17 s Tablet By Pachika Mouth , M.DAnup Every Day Oxygen 11/10/19 Active Misc 1unit 3 liters [place] 16 s via nasal Pachikara cannula , M.DAnup at all times Pen Napoleon 10/04/19 Active Misc 31G X 6 100un length Ismael 16 mm its 5x16 /31g Pachikara use with , Tata levemir as directed Metoprolol 05/03/20 Active Tablets 50mg 60tab Take 1 Waqar Tartrate 15 s Tablet By Zeferino Salter, Mouth Two M.D.,FACP Times Daily Aspirin Adult Active Chewtabs 81mg [...] 30tab 1 by Rosmery 00 s mouth Fisher, every day Linagliptin Active Tablet 5mg 1 tab by Unknown 00 mouth daily Basaglar Active Solution 100Unit/M inject Unknown Kwikpen 00 Pen-Inject L 25units subcut twice daily Symbicort Active Aerosol 80-4.5mcg 2 puffs Unknown 00 /Act twice a day Incruse Ellipta Active Aerosol 62.5mcg/I inhale Unknown 00 nh one puff by mouth every day Symbicort 11/28/19 Hx Aerosol 160-4.5mc 2 puff [place] 19 - g/Act twice a Pachikara 11/28/19 day , M.DAnup 19 [employer] Pen 02/12/20 Hx 100un use with [place] Needle 6mm 31G 18 - its levemir Pachikara 03/29/20 as , M.DAnup 18 directed Levemir 12/19/19 Hx Solution 100Unit/M 30uni Inject 40 E11.65 Wa[place]ar Flextouch 18 - Pen-Inject L ts Units DAnup Caraway, 11/28/19 Under The M.DAnup,FACP 19 Skin Two Times Daily (currentl y 55units) Levemir 11/27/19 Hx Solution 100Unit/M 30ml 4o units E11.65 Ismael Flextouch 18 - Pen-Inject L twice Pachikara 12/19/19 daily , M.DAnup 18 Losartan 11/27/19 Hx Tablets 50mg 90tab 1 by I10 Ismael Potassium 18 - s mouth Pachikara 08/01/20 every day , M.DAnup 18 [facility] 04/27/20 Hx Misc 30G 100un test E11.65 [place] Lancets 17 - its twice Pachikara 04/30/20 daily and , M.DAnup 17 as needed Metformin HCL 04/27/20 Hx Tablets 500mg 30tab Take 1 E11.65 Waqar 17 - s Tablet By Zeferino Salter, 11/27/19 Mouth Two M.DAnup,FACP 18 Times Daily Levemir 01/16/20 Hx Solution 100Unit/M 35 units E11.65 Ismael Flextouch 17 - Pen-Inject L twice Pachikara 01/16/20 daily , M.D. 17 Levemir Flexpen 01/16/20 Hx Solution 100Unit/M 15ml 55 units E11.65 [place] 17 - Pen-Inject L once Pachikara 11/27/19 daily , M.DAnup 18 Proair HFA 01/06/20 Hx Aerosol 108(90Bas 8.5un 2 puffs Ismael 17 - e) its ih every Pachikara 11/28/19 mcg/Act 4 hours , M.DAnup 19 as needed Levemir Flexpen 12/06/19 Hx Solution 100Unit/M 45uni 45 units E11.65 [place] 17 - Pen-Inject L ts at [facility] 01/16/20 , Tata 17 Onetouch Verio 12/06/19 Hx Kit w/Device 1unit test bid Ismael Iq Blood 17 - s and as [facility] Glucose 04/30/20 needed dx , M.D. Monitoring 17 E11.65 System 10/16/16 Albuterol 12/05/19 Hx Powder 60uni 1-2 puffs Ismael Sulfate 17 - ts every 4 Pachikara 01/06/20 hours as , Tata 17 needed sob Symbicort 12/05/19 Hx Aerosol 80-4.5mcg 30.6u Inhale 1 [place] 17 - /Act nits puff By Pachikara 11/28/19 Mouth Two , MAnupDAnup 19 Times Daily Spiriva 12/01/19 Hx Capsules 18mcg 30cap 1 unit [place] Handihaler 17 - s inhalatio Pachikara Unknown n daily , MAnupDAnup Prednisone 12/01/19 Hx Tablets 20mg 60tab 2 tabs by Other 17 - s mouth Ordering 02/24/20 every day Provider 17 Levemir 10/16/19 Hx Solution 100Unit/M 10ml 45 units E11.65 [place] 17 - L hs Pachikara 12/06/19 , Tata 17 Ketoconazole 10/16/19 Hx Cream 2% 120gm apply B37.9 Ismael 17 - twice a Pachikara 06/28/20 day(no , M.D. 18 longer using) Tab-A-Bay 09/12/20 Hx Tablets 90tab 1 by [place] 16 - s mouth Pachikara 01/16/20 every day , M.D. 17 Lisinopril 02/11/20 Hx Tablets 20mg 30tab 1 by [place] 16 - s mouth Pachikara 02/16/20 every day , M.D. 16 Amlodipine 01/03/20 Hx Tablets 5mg 30tab 1 by Soren Besylate 16 - s mouth Prydeinig, 04/01/20 every day STACKER 17 (no longer using) One Touch Verio 07/29/20 Hx 60uni test bid E11.65 Ismael Test Strips 15 - ts and as Pachikara 12/06/19 needed dx , M.D. 17 E11.65 10/16/16 One Touch / 07/29/20 Hx 60uni test E11.65 Ismael Verio/Lancets 15 - ts twice a Pachikara 12/06/19 day and , M.D. 17 as needed dx e11.65 10/16/16 Levemir 07/29/20 Hx Solution 100Unit/M 45ml 30 units E11.65 Ismael Flextouch 15 - Pen-Inject L sc every Pachikara 10/16/19 day at , M.D. 17 bedtime Metformin HCL 09/15/20 Hx Tablets 1000mg 60tab 1 by 250.60 Ismael 14 - s mouth Pachikara 11/11/19 once per , M.D. 16 day Glipizide 09/15/20 Hx Tablets 10mg 30tab Take 1 Waqar 14 - s Tablet By Zeferino Salter, 11/27/19 Mouth M.DAnup,FACP 18 twice a Day Ferrous Sulfate Hx Tablets 325(65Fe) 90tab 1 by Ismael 00 - mg s mouth Pachikara 04/01/20 every day , M.D. 15 Furosemide Hx Tablets 40mg 90tab 1 by [place] 00 - s mouth Pachikara 06/13/20 every day , M.D. 17 Lipitor Hx Tablets 10mg 90tab 1 by Unknown 00 - s mouth 07/16/20 every 14 night at bedtime Metoprolol Hx Tablets 50mg 180ta 1 by [place] Tartrate 00 - bs mouth Pachikara 04/01/20 once a , M.D. 15 day Glipizide Hx Tablets 10mg 1 by Unknown 00 - mouth 09/15/20 twice a 14 day Lisinopril Hx Tablets 10mg 90tab 1 by [place] 00 - s mouth Pachikara 02/11/20 every day , M.D. 16 Lantus Hx Solution 100Unit/M 3vial as Unknown 00 - L s directed 04/01/20 15 Potassium Hx Tablets ER 20Meq 90tab 1 by Ismael Chloride Paz - s mouth Pachikara ER 04/01/20 every day , M.D. 15 Vitamin C Plus Hx Tablets 500mg [...] needed Multivitamins Hx Capsules 90cap 1 by Ismael 00 - s mouth Pachikara 11/11/19 every day , M.D. 16 Nystatin Hx Powder 1unit apply Unknown 00 - s three 11/16/19 times a 14 day until rash clears Tylenol Hx Tablets ER 650mg 100ta 1 q4h prn Unknown Arthritis Pain 00 - bs 09/15/20 14 Oxygen Hx Misc 1unit 3 liters Unknown 00 - s via nasal 04/01/20 canula. 15 Lisinopril Hx Tablets 10mg 30tab 1 by [place] 00 - s mouth Pachikara 04/03/20 every [...] hours 11/28/19 x 14 days 19 at [facility] Medications Administered in Office Medication Date Status Form Strength Qnty SIG Indications Ordering Provider Technetium TC Administered Injection Shorty S. 99M 017 DO Bay Tetrofosmin, FACC Per Unit Dose Up To 40 Millicuries Immunizations CPT Code Status Date Vaccine Lot # 96280 Given 10/16/2016 Zoster (Zostavax) [id number] 43537 Given 10/16/2016 Influ Virus Vaccine, Quadrivalent, Split Virus, [place] [id number] [id number] Given 07/29/2015 Influenza Virus Vaccine, Quadrivalent, Split, [id number] Preservative Free 20389 Given 09/15/2014 Pneumonia Vaccine [id number] Vital Signs Date Vital Result Comment 11/29/2018 2:38pm Height 74 inches 6'2" Weight [...] H/L Range Note Comp Metabolic Panel 11/11/2018 [facility] Sodium 141 mmol/L N 135-[address] [place] [address] [phone] Potassium 3.5 mmol/L N 3.5-5.0 Chloride 96 [...] Egfr 66.4 >60 2 Laboratory test 11/11/2018 [facility] C Reactive 112.44 mg/L High <8.01 [address] [place] [address] [phone] CBC Auto Diff 11/11/2018 [facility] White Blood 12.7 High 3.5- 10.[address] Count 10^3/[place] [address] [phone] Red Blood Count 3.24 10^6/uL Low 4.00-5.40 [...] Blood Cells % 0 Laboratory test 10/25/2018 [facility] Tissue SEE RESULT 4, [address] Culture & [place] [address] Sensitiv [phone] Laboratory test 10/25/2018 [facility] Lactic Acid 4.8 mmol/L High 0.5-2 [address]0 [place] [address] [phone] Comp Metabolic 10/25/2018 [facility] Sodium 141 mmol/L N 135- [address] 45 [place] [address] [phone] Potassium 3.8 mmol/L N 3.5-5.0 Chloride 91 [...] Egfr Non- 29.0 >60 Egfr 35.1 >60 7 Co2 Carbon Dioxide 41 mmol/L High 22-32 8 Anion Gap 9 mmol/L N 2-11 Laboratory test 10/25/2018 [facility] C Reactive 136.50 mg/L High <8.[address] [place] [address] [phone] CBC Auto Diff 10/25/2018 [facility] White Blood 16.0 High 3.5- 10.[address] Count 10^3/[place] [address] [phone] Red Blood Count 3.82 10^6/uL Low 4.00-5.40 [...] Blood Cells % 0 Laboratory test 10/25/2018 [facility] Erythrocyte Sed 120 mm/Hr High 0-[address] [place] [address] [phone] Arterial Blood 07/18/2018 [facility] O2 Device BiPAP Gas [address] [place] [address] [phone] Fio2 40 PH Arterial 7.33 Low 7.35-7.45 Pco2 Arterial 69 mmHg High 35-45 Po2 Arterial 73 mmHg Low 80-100 O2 Saturation Arterial 96.3 % N 95-98 Base Excess Arterial 9.0 High -2.0-2.0 9 Hco3 Arterial 31.9 mmol/L High 19-31 CBC Auto Diff 07/18/2018 [facility] White Blood 8.3 10^3/uL N 3.5-10.[address] [place] [address] [phone] Red Blood Count 3.71 10^6/uL Low 4.00-5.40 [...] Red Blood Cells % 0.1 Inr/Protime 07/18/2018 [facility] Inr 0.96 N 0.77-1.[address] [place] [address] [phone] Laboratory test 07/18/2018 [facility] Partial 31.0 seconds N 26.0-36.[address] [address] PTT [phone] Lactic Acid 0.9 mmol/L N 0.5-2.0 10 B-Type Natriuretic Peptide BNP 160 pg/mL High 11 Comp Metabolic Panel 07/18/2018 [facility] Sodium 137 mmol/L N 135-[address] [place] [address] [phone] Potassium 4.8 mmol/L N 3.5-5.0 Chloride 96 [...] Egfr 48.2 >60 12 Laboratory test 07/18/2018 [facility] Creatine 67 U/L N 10- [address] Kinase(CK) [place] [address] [phone] CKMB 07/18/2018 [facility] CKMB ng/mL 2.6 N 0.6-6.[address] ng/[place] [address] [phone] Laboratory test 07/18/2018 [facility] Troponin-I 0.04 High < 0.[address] [facility] (TnI) ng/[place] [address] [phone] Magnesium 2.0 mg/dL N 1.9-2.7 Blood Culture SEE RESULT BELOW 14 Lipid Profile 12/18/2017 [facility] Triglycerides 92 mg/dL 15 (Trig/Chol/HDL) [address] [place] [address] [phone] Cholesterol 134 mg/dL 16 HDL Cholesterol 30.0 mg/dL 17 LDL Cholesterol 86 mg/dL 18 Comp Metabolic Panel 12/18/2017 [facility] Sodium 134 mmol/L N 133-145 [address] [place], [place] [address] [phone] Potassium 4.7 mmol/L N 3.5-5.0 Chloride 95 [...] 43.5 >60 19 Laboratory test finding 12/18/2017 [facility] Cortisol 14.45 g /dL 20 [address] [place] [address] [phone] TSH (Thyroid Stim Horm) 2.21 mcIU/mL N 0.34-5.60 Laboratory test 11/27/2017 [facility] Hemoglobin A1c >14.0 High 5-7 finding Laboratory test 04/27/2017 [facility] Hemoglobin A1c 12.0 High 5-7 finding Laboratory test 03/21/2017 [facility] Point of Care 151 mg/dL High 74-106 [address] Glucose [place], [place] [address] [phone] Laboratory test 03/21/2017 [facility] Point of Care 282 mg/dL High 74-106 [address] [place] [address] [phone] Laboratory test 03/21/2017 [facility] Point of Care 313 mg/dL High 74-106 [address] [place] [address] [phone] Laboratory test 03/14/2017 [facility] Point of Care 244 mg/dL High 74-106 [address] Glucose [place], [place] [address] [phone] Laboratory test 03/14/2017 [facility] Point of Care 334 mg/dL High 74-106 [address] [place] [address] [phone] Laboratory test 03/14/2017 [facility] Point of Care 391 mg/dL High 74-106 [address] [place] [address] [phone] Urine Microalbumin 01/15/2017 [facility] Urine Creatinine 100.96 N Random [address] mg/dL [place], [place] [address] [phone] Ur Microalbumin (mg/L) 642.0 mg/L N Urine Microalbumin/Creatinine 635.8 ug/mg High <31 Laboratory test 01/15/2017 [facility] Hemoglobin A1c 10.1 High 5-7 finding Stool For Blood 11/28/2016 [facility] Stool Occult SEE RESULT [address] [place] [address] [phone] Laboratory test 10/16/2016 [facility] PSA Screening 0.380 ng/mL N 0-4.000 [address] [place] [address] [phone] Comp Metabolic 10/16/2016 [facility] Sodium 132 mmol/L Low 133 -[address] [place] [address] [phone] Potassium 4.6 mmol/L N 3.5-5.0 Chloride 95 [...] 62.7 N >60 29 Lipid Profile 10/16/2016 [facility] Triglycerides 97 mg/dL N 30 (Trig/Chol/HDL) [address] [place], [place] [address] [phone] Cholesterol 139 mg/dL N 31 HDL Cholesterol 30.2 mg/dL N 32 LDL Cholesterol 89 mg/dL N 33 Laboratory test 10/16/2016 [facility] Hemoglobin A1c 13.4 % High Less [address] (Glyco HGB) than 6.0 [place] [address] [phone] Laboratory test 09/01/2016 [facility] In House Hemoglobin A1c 14.0 High 5-7 finding Laboratory test 11/11/2015 [facility] Troponin-I 0.10 ng/mL High <0.[address] [facility] (TnI) [place] [address] [phone] Arterial Blood 11/11/2015 [facility] O2 Device oxymask N Gas [address] [place] [address] [phone] Fio2 60 N PH Arterial 7.40 N 7.35-7.45 Pco2 Arterial 70 mmHg High 35-45 Po2 Arterial 125 mmHg High 80-100 O2 Saturation Arterial 99.7 % High 95-98 Base Excess Arterial 16.3 High -2.0-2.0 36 Hco3 Arterial 37.6 mmol/L High 19-31 Urine Microalbumin 11/11/2015 [facility] Urine Creatinine 89.79 mg/dL N Random [address] [place] [address] [phone] Ur Microalbumin (mg/L) 458.0 mg/L N Urine Microalbumin/Creatinine 510.0 ug/mg High <31 Laboratory test finding 11/11/2015 [facility] Hemoglobin A1c 7.9 High 5 -7 Laboratory test finding 07/29/2015 [facility] Hemoglobin A1c 12.2 High 5-7 Laboratory test finding 04/01/2015 [facility] Hemoglobin A1c 11.2 High 5-7 1 [facility] - Floor: 1, #: [id number] 2 Because ethnic data is not always [...] 5 Kidney failure <15 (or dialysis) 3 [facility] - Floor: 1, Rm #: [id number] 4 LEFT HEAL 5 SEE RESULT BELOW Name: JAMIE SERRANO : [address]: Thi Saleem NP Acct: [id number] Unit: [id number] AGE: 63 Location: WOUND Re10/25/18 SEX: M Status: REG REF SPEC: [id number] LIZZY: 10/25/18-[address]: Thi Saleem NP REQ: [id number] RECD: 10/25/18 STATUS: COMP [facility] DR: Ismael Yoo MD _ SOURCE: WOUND [...] CONTINUED ON NEXT PAGE DEPARTMENT OF PATHOLOGY, [address] [place] [address] Radhames Oneal M.D. Director [facility] # [id number] Patient: JAMIE SERRANO [id number] (Continued) Specimen: [id number] Collected: 10/25/18 Received: 10/25/18 (Continued) Procedure Result Reported Site Tissue Culture Final (continued) 10/29/181099 1. STAPHYLOCOCCUS AUREUS (continued) M.I.C. RX --------- ------ Vancomycin 1 S Imipenem-Deduced S * Ampicillin/Sulbactam-Deduced S Cefazolin-Deduced S * These antibiotics are not available in the [facility] Formulary Contact the Microbiology Department for any additional antibiotic reporting. * ML - Main Lab . END OF REPORT DEPARTMENT OF PATHOLOGY, [address] [place] [address] Radhames Oneal M.D. Director [facility] # [id number] 6 Critical Result LACT:4.8 Called to [id number] at: 20:39:50 by:[id number] Read back by:[id number] [facility] Severe Sepsis and Septic Shock Management Bundle Measure requires all lactic acids initially measuring >2.0 mmol/L be repeated. 7 Because ethnic data is not always readily [...] 15-29 5 Kidney failure <15 (or dialysis) 8 Critical Result CO2:41 Called to [id number] at: 20:39:18 by:[id number] Read back by:[id number] 9 Reference ranges based on room air. 10 [facility] Severe Sepsis and Septic Shock Management [...] (or dialysis) 13 Result TnIDx:0.04 Called to [id number] at: 11:18:21 by:[id number] Read back by: [id number] 14 SEE RESULT BELOW Name: JAMIE SERRANO : [address]: Angélica Rodriguez MD Acct: [id number] Unit: [id number] AGE: 63 Location: ICU [id number] Re07/18/18 SEX: M Status: ADM IN SPEC: [id number] LIZZY: 07/18/18-1038 [facility] DR: Sherif Lazo MD REQ: [id number] RECD: 07/18/18 STATUS: COMP [facility] DR: Ismael Yoo MD _ SOURCE: BLOOD,[facility]: ORDERED: Blood Cult Procedure Result Reported Site Aerobic Culture Bottle Final 07/23/18- 1041 ML No Growth Day 5 Anaerobic Culture Bottle Final 07/23/18- 1041 ML No Growth Day 5 * ML - Main Lab . END OF REPORT DEPARTMENT OF PATHOLOGY, [address] [place] [address] Radhames Oneal M.D. Director [facility] # [id number] 15 Desirable: <150 Borderline High: 150-199 High: [...] dialysis) 20 AM 8.7-22.4 PM <10 21 Continuing Education Instructor: [id number] 22 Continuing Education Instructor: [id number] 23 Continuing Education Instructor: [id number] 24 Continuing Education Instructor: [id number] 25 Continuing Education Instructor: [id number] 26 Continuing Education Instructor: [id number] 27 SEE RESULT BELOW Name: MAGGIEJAMIE : [address]: Fito Manzo MD Acct: [id number] Unit: [id number] AGE: 61 Location: [facility] Re11/29/16 SEX: M Status: ADM IN SPEC: [id number] LIZZY: 11/28/[address]: Dev George MD REQ: [id number] RECD: 11/28/16 STATUS: [facility] DR: Ismael Yoo MD _ SOURCE: STOOL [...] performed at Main Lab DEPARTMENT OF PATHOLOGY, [address] [place] [address] Radhames Oneal M.D. Director [facility] # [id number] Patient: JAMIE SERRANO Juanita [id number] (Continued) Specimen: [id number] Collected: 11/28/16 Received: 11/28/16 (Continued) Procedure Result Reported Site C. difficile PCR Final (continued) 11/28/16- 2049 Fecal Lactoferrin (Stool WBC) Final 11/28/16- 1946 ML Fecal Lactoferrin Negative by Immunoassay Stool Occult Blood Final 11/28/16- 1918 ML Stool Occult Blood Negative * ML - MAIN LAB ([facility]) . END OF REPORT * ML=Testing performed at Main Lab DEPARTMENT OF PATHOLOGY, [address] [place] [address] Radhames Oneal M.D. Director [facility] # [id number] 28 Serum levels of PSA measured using the Vy [employer] DXI Hybritech immunoassay should not be interpreted [...] and in selective patients <6.0%.Please refer to [place] [employer] Diabetic care guidelines for further information. 35 Reference Range and Interpretation: TnI (ng/mL) Interpretation Less Than 0.03 ng/mL Not supportive of diagnosis of NV 0.03 - 0.50 ng/mL Indeterminate: suggest serial studies if clinically indicated. Greater than 0.5 ng/mL Consistent with diagnosis of NV 36 Reference ranges based on room air. Procedures Date Code Description Status 10/25/2018 74388 Debridement Skin,& sq Tissue Completed 09/12/2018 21109 Removal Devitalization Tissue Wound Less Than Equal 20 Completed Square CM 09/02/2018 23736 Chemical Cautery Granulation Tissue Completed 08/19/2018 12224 Chemical Cautery Granulation Tissue Completed 07/19/2018 34484 EKG, Interpretation Only Completed 07/18/2018 75634 ECHO Transthorasic Realtime 2D W Doppler & Color Flow Completed Hosp 11/22/2017 [id number] Diabetic Retinal Eye Exam Completed 06/11/2017 92540 Treadmill Interp/Report Only Completed 06/11/2017 97947 Stress Test Supervsn W/Out I/R Completed 04/17/2017 65191 EKG Tracing & Interpretation Completed 04/06/2017 88280 ECHO Transthoracic, Real-Time 2D With Doppler And Completed Color Flow 01/16/2017 782324053 Diabetic Retinal Eye Exam Completed 03/14/2016 42180 Polysomnography Sleep Staging 4+ Parameters Completed 11/12/2015 16589 ECHO Transthorasic Realtime 2D W Doppler & Color Flow Completed Hosp 11/12/2015 55658 EKG, Interpretation Only Completed 06/01/2015 [id number] Diabetic Retinal Eye Exam Completed 04/20/2014 24582 ECHO Transthorasic Realtime 2D W Doppler & Color Flow Completed Hosp 04/20/2014 73673 EKG, Interpretation Only Completed 09/11/2013 72659 ECHO Transthorasic Realtime 2D W Doppler & Color Flow Completed Hosp Encounters Type Date Location Provider Dx Diagnosis Office Visit 11/04/2018 [facility] Angela Rodriguez NP E11.621 Type 2 diabetes 10:54a Assoc,pc mellitus with Hospitalists foot ulcer L97.529 Non-pressure chronic ulcer oth [...] with heart failure Office Visit 11/03/2018 10:54a [facility] Angela Michael, N17.9 Acute kidney Assoc,pc STACKER failure, Hospitalists unspecified A41.9 Sepsis, unspecified organism E11.621 Type 2 diabetes mellitus with foot ulcer I73.9 Peripheral vascular disease, unspecified E11.51 Type 2 diabetes w diabetic peripheral angiopath w/o gangrene I48.91 Unspecified atrial fibrillation I50.22 Chronic systolic (congestive) heart failure J96.12 Chronic respiratory failure with hypercapnia J44.9 Chronic obstructive pulmonary disease, unspecified 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 Office Visit 11/02/2018 [facility] N17.9 Acute kidney 10:53a Assoc,pc [place], STACKER failure, Hospitalists unspecified A41.9 Sepsis, unspecified organism [...] J96.12 Chronic respiratory failure with hypercapnia 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 Office Visit 11/01/2018 [facility] N17.9 Acute kidney 10:53a Assoc,pc [place], STACKER failure, Hospitalists unspecified A41.9 Sepsis, unspecified organism E11.621 Type 2 diabetes mellitus with foot ulcer L97.529 Non-pressure chronic ulcer oth prt left foot w unsp severity J96.12 Chronic respiratory failure with hypercapnia D64.9 Anemia, unspecified I50.9 Heart failure, unspecified N18.3 Chronic kidney disease, stage 3 (moderate) 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 Office Visit 11/01/2018 2:57p [facility] Raman GAnup E11.621 Type 2 diabetes Medicine Of Liang Steel M.D. mellitus with foot ulcer E11.51 Type 2 diabetes w diabetic peripheral angiopath w/o gangrene I77.1 Stricture of artery Office Visit 10/31/2018 [facility] N17.9 Acute kidney 10:52a Assoc,purnima Benítez, STACKER failure, Hospitalists unspecified E11.621 Type 2 diabetes [...] midfoot w unsp severt Office Visit 10/30/2018 [facility] N17.9 Acute kidney 10:52a Assoc,purnima Benítez, STACKER failure, Hospitalists unspecified E11.621 Type 2 diabetes mellitus with foot ulcer L97.529 Non-pressure chronic ulcer oth prt left foot w unsp severity D64.9 Anemia, unspecified I50.9 Heart failure, unspecified 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 N18.3 Chronic kidney disease, stage 3 (moderate) J96.12 Chronic respiratory failure with hypercapnia 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 Office Visit 10/29/2018 [facility] Kurt Mcgarry L89.629 Pressure ulcer of 7:37a For Julia Payne M.D. left heel, Diseases unspecified stage L03.116 Cellulitis of left lower limb M60.074 Infective myositis, left foot N17.9 Acute kidney failure, unspecified E11.9 Type 2 diabetes mellitus without complications B95.61 Methicillin suscep staph infct causing dis classd elswhr Office Visit 10/29/2018 [facility] Dagmar N17.9 Acute kidney 10:51a Assoc,purnima Benítez, STACKER failure, Hospitalists unspecified A41.9 Sepsis, unspecified organism E11.621 Type 2 diabetes mellitus with foot ulcer I50.9 Heart failure, unspecified J96.12 Chronic respiratory failure with hypercapnia N18.3 Chronic kidney disease, stage 3 (moderate) Z79.4 retirement (current) use of insulin E66.2 Morbid (severe) obesity with alveolar hypoventilation 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 Office Visit 10/29/2018 Orthopedic Robert Gomez, L89.629 Pressure ulcer 10:36a Services Of Analy OGNZALEZ of left heel, unspecified stage Office Visit 10/28/2018 [facility] [place] Stern, N17.9 Acute kidney 10:39a Assoc,purnima PA failure, Hospitalists unspecified J96.92 Respiratory failure, unspecified with hypercapnia D64.9 Anemia, unspecified E11.51 Type 2 diabetes w diabetic peripheral angiopath w/o gangrene I73.9 Peripheral vascular disease, unspecified E11.621 Type 2 diabetes mellitus with foot ulcer L97.529 Non-pressure chronic ulcer oth prt left foot w unsp severity 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 Office Visit 10/27/2018 10:38a [facility] [place] N17.9 Acute kidney Assoc,purnima Stern, PA failure, Hospitalists unspecified A41.9 Sepsis, unspecified organism E11.621 Type 2 diabetes mellitus with foot ulcer L97.529 Non-pressure chronic ulcer oth prt left foot w unsp severity E66.2 Morbid (severe) obesity with alveolar hypoventilation I73.9 Peripheral vascular disease, unspecified E11.51 Type 2 diabetes w diabetic peripheral angiopath w/o gangrene J96.12 Chronic respiratory failure with hypercapnia Office Visit 10/27/2018 10:36a Orthopedic Shelby Garrido, L89.629 Pressure ulcer of Services Of MD lewis ellison C.M.A. unspecified stage E11.621 Type 2 diabetes mellitus with foot ulcer Office Visit 10/26/2018 10:35a Orthopedic Shelby Garrido, L89.629 Pressure ulcer of Services Of MD lewis ellison C.M.A. unspecified stage E11.621 Type 2 diabetes mellitus with foot ulcer Office Visit 10/26/2018 10:37a [facility] [place] N17.9 Acute kidney Assoc,pc Jarred PA failure, Hospitalists unspecified J44.1 Chronic obstructive pulmonary disease w (acute) exacerbation A41.9 Sepsis, unspecified organism E11.621 Type 2 diabetes mellitus with foot ulcer L97.529 Non-pressure chronic ulcer oth prt left foot w unsp severity E87.2 Acidosis I50.9 Heart failure, unspecified Office Visit 10/25/2018 10:37a [facility] Chey A41.9 Sepsis, Assoc,pc MD Igor unspecified Hospitalists organism E11.621 Type 2 diabetes mellitus with foot ulcer E87.2 Acidosis N17.9 Acute kidney failure, unspecified E66.2 Morbid (severe) obesity with alveolar hypoventilation I50.9 Heart failure, unspecified J44.1 Chronic obstructive pulmonary disease w (acute) exacerbation L97.529 Non-pressure chronic ulcer oth prt left foot w unsp severity Office Visit 10/25/2018 1:15p Wound Care Thi Saleem, L03.818 Cellulitis of Center AT [facility] JUANIS RN, [employer]-BC other sites M86.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, left ankle and foot E11.621 Type 2 diabetes mellitus with foot ulcer Office Visit 10/14/2018 1:00p Wound Care Thi M86.572 Oth chronic Center AT JUANIS Saleem RN, hematogenous [facility] [employer] osteomyelitis, left ankle and foot L89.513 Pressure ulcer of right ankle, stage 3 Office Visit 09/30/2018 1:00p Wound Care Thi Saleem, L97.311 Non- prs chronic Center AT [facility] JUANIS RN, [employer]BC ulcer of right ankle limited to brkdwn skin E11.622 Type 2 diabetes mellitus with other skin ulcer Office Visit 09/20/2018 Orthopedic Robert Gomez, Z79.84 retirement 1:30p Services Of (current) use of C.M.A. oral hypoglycemic drugs E11.621 Type 2 diabetes mellitus with foot ulcer L97.319 Non-pressure chronic ulcer of right ankle with unsp severity Office Visit 09/13/2018 9:50a [facility] For Kurt Mcgarry E11.621 Type 2 Infectious Tata Payne diabetes Diseases mellitus with foot ulcer L97.319 Non-pressure chronic ulcer of right ankle with unsp severity Office Visit 08/28/2018 10:30a [facility] Raman G. I70.235 [facility] [place] Medicine Of [facility] [employer] arteries of right leg w ulcer oth prt foot I70.244 Athscl [place] art of left leg w ulcer of heel and midfoot Office Visit 08/26/2018 3:45p Orthopedic Robert Gomez, E11.621 Type 2 Services Of MD joseph Ornelas.MHetal mellitus with foot ulcer L89.519 Pressure ulcer of right ankle, unspecified stage L97.529 Non-pressure chronic ulcer oth prt left foot w unsp severity Office Visit 08/20/2018 11:45a Pulmonology And Shonda G47.33 Obstructive sleep Sleep Services Of MD Lefty apnea (adult) [facility] (pediatric) E66.2 Morbid (severe) obesity with alveolar hypoventilation J44.9 Chronic obstructive pulmonary disease, unspecified R09.02 Hypoxemia Office Visit 08/19/2018 12:45p Wound Care Thi Saleem, E11.621 Type 2 diabetes Center AT [facility] XUAN OLIVAREZ, [employer] mellitus with foot ulcer L89.513 Pressure ulcer of right ankle, stage 3 M86.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, left ankle and foot M14.671 Charcot's joint, right ankle and foot Office Visit 08/12/2018 [facility] Kurt Mcgarry E11.42 Type 2 diabetes 2:00p For [...] w unsp severity Office Visit 08/01/2018 8:47a [facility] Misael Rodriguez, I48.91 Unspecified atrial Assoc,purnima GONZALEZ fibrillation Hospitalists J96.21 Acute and chronic respiratory failure with hypoxia I73.9 Peripheral vascular disease, unspecified I50.9 Heart failure, unspecified E66.2 Morbid (severe) obesity with alveolar hypoventilation D64.9 Anemia, unspecified J44.9 Chronic obstructive pulmonary disease, unspecified E11.51 Type 2 diabetes w diabetic peripheral angiopath w/o gangrene Office Visit 07/31/2018 8:47a [facility] Misael Rodriguez, J96.02 Acute respiratory Assoc,purnima GONZALEZ failure with Hospitalists hypercapnia E66.2 Morbid (severe) obesity with alveolar hypoventilation J44.9 Chronic obstructive pulmonary disease, unspecified M86.9 Osteomyelitis, unspecified I73.9 Peripheral vascular disease, unspecified E11.51 Type 2 diabetes w diabetic peripheral angiopath w/o gangrene I50.31 Acute diastolic (congestive) heart failure Z79.4 retirement (current) use of insulin [facility]2018 [facility] respiratory Assoc,purnima GONZALEZ failure with Hospitalists hypercapnia I73.9 Peripheral vascular disease, unspecified D64.9 Anemia, unspecified I50.31 Acute diastolic (congestive) heart failure E11.51 Type 2 diabetes w diabetic peripheral angiopath w/o gangrene Office Visit 07/30/2018 11:39a Pulmonology And Shonda J96.21 Acute and chronic Sleep Services Of MD Lefty respiratory Financial Institution Vice President failure with hypoxia J96.22 Acute and chronic respiratory failure with hypercapnia I48.91 Unspecified atrial fibrillation J44.9 Chronic obstructive pulmonary disease, unspecified Office Visit 07/29/2018 [facility] I73.9 Peripheral 8:46a Assoc,pc Tata Jeffers vascular Hospitalists disease, unspecified E66.2 Morbid (severe) obesity with alveolar hypoventilation I50.31 Acute diastolic (congestive) heart failure D64.9 Anemia, unspecified M86.9 Osteomyelitis, unspecified E11.51 Type 2 diabetes w diabetic peripheral angiopath w/o gangrene Office Visit 07/28/2018 [facility] I73.9 Peripheral 8:46a purnima Calixto M.D. vascular Hospitalists disease, unspecified J96.02 Acute respiratory failure with hypercapnia E66.2 Morbid (severe) obesity with alveolar hypoventilation M86.9 Osteomyelitis, unspecified I50.31 Acute diastolic (congestive) heart failure E11.51 Type 2 diabetes w diabetic peripheral angiopath w/o gangrene Office Visit 07/27/2018 [facility] I73.9 Peripheral 8:46a purnima Calixto M.D. vascular Hospitalists disease, unspecified E11.51 Type 2 diabetes w diabetic peripheral angiopath w/o gangrene J96.02 Acute respiratory failure with hypercapnia M86.9 Osteomyelitis, unspecified Office Visit 07/27/2018 11:38a Pulmonology And Shonda J96.21 Acute and chronic Sleep Services Of MD Lefty respiratory [employer] Vice President failure with hypoxia J96.22 Acute and chronic respiratory failure with hypercapnia I48.91 Unspecified atrial fibrillation I95.9 Hypotension, unspecified Office Visit 07/26/2018 [facility] I73.9 Peripheral 8:45a purnima Calixto M.D. vascular Hospitalists disease, unspecified J96.02 Acute respiratory failure with hypercapnia E66.2 Morbid (severe) obesity with alveolar hypoventilation J44.9 Chronic obstructive pulmonary disease, unspecified I27.20 Pulmonary hypertension, unspecified M86.9 Osteomyelitis, unspecified I50.31 Acute diastolic (congestive) heart failure Office Visit 07/25/2018 [facility] I73.9 Peripheral 8:45a purnima Calixto M.D. vascular Hospitalists disease, unspecified J96.02 Acute respiratory failure with hypercapnia M86.9 Osteomyelitis, unspecified I50.31 Acute diastolic (congestive) heart failure E11.51 Type 2 diabetes w diabetic peripheral angiopath w/o gangrene Office Visit 07/24/2018 [facility] Betzaida Martinez, I50.9 Heart failure , 8:45a purnima Calixto M.D. unspecified Hospitalists N17.9 Acute kidney failure, unspecified I48.91 Unspecified atrial fibrillation E11.22 Type 2 diabetes mellitus w diabetic chronic kidney disease E11.649 Type 2 diabetes mellitus with hypoglycemia without coma M86.9 Osteomyelitis, unspecified Office Visit 07/23/2018 [facility] J96.02 Acute 8:44a purnima Calixto MD respiratory Hospitalists failure with hypercapnia N17.9 Acute kidney failure, unspecified I48.91 Unspecified atrial fibrillation M86.9 Osteomyelitis, unspecified E11.22 Type 2 diabetes mellitus w diabetic chronic kidney disease E66.2 Morbid (severe) obesity with alveolar hypoventilation Office Visit 07/22/2018 [facility] N17.9 Acute kidney 8:44a purnima Calixto MD failure, Hospitalists unspecified I27.20 Pulmonary hypertension, unspecified E11.22 Type 2 diabetes mellitus w diabetic chronic kidney disease M86.9 Osteomyelitis, unspecified I48.91 Unspecified atrial fibrillation R41.82 Altered mental status, unspecified [facility] I50.9 Heart failure , 8:44a purnima Calixto M.D. unspecified Hospitalists J96.01 Acute respiratory failure with hypoxia N17.9 Acute kidney failure, unspecified E11.22 Type 2 diabetes mellitus w diabetic chronic kidney disease Z79.4 retirement (current) use of insulin Office Visit 07/20/2018 [facility] Michelle, I50.31 Acute diastolic 8:44a purnima Calixto M.D. (congestive) Hospitalists heart failure J96.01 Acute respiratory failure with hypoxia I48.91 Unspecified atrial fibrillation E11.22 Type 2 diabetes mellitus w diabetic chronic kidney disease M86.9 Osteomyelitis, unspecified I12.9 Hypertensive chronic kidney disease w stg 1-4/unsp chr kdny Z79.4 retirement (current) use of insulin Office Visit 07/19/2018 7:50a [place] [facility]el Mcgarry E11.621 Type 2 Infectious Tata Payne diabetes Diseases mellitus with foot ulcer L97.529 Non-pressure chronic ulcer oth prt left foot w unsp severity E11.622 Type 2 diabetes mellitus with other skin ulcer L97.319 Non-pressure chronic ulcer of right ankle with unsp severity I89.0 Lymphedema, not elsewhere classified Office Visit 07/19/2018 [facility] Angélica N17.9 Acute kidney 8:43a Assoc,purnima Rodriguez MD failure, Hospitalists unspecified E11.22 Type 2 diabetes mellitus w diabetic chronic kidney disease I50.9 Heart failure, unspecified J96.01 Acute respiratory failure with hypoxia I48.91 Unspecified atrial fibrillation M86.9 Osteomyelitis, unspecified Office Visit 07/18/2018 8:42a [facility] Irasema Priyank, I48.91 Unspecified atrial Assoc,pc N.P. fibrillation Hospitalists I50.23 Acute on chronic systolic (congestive) heart failure J96.21 Acute and chronic respiratory failure with hypoxia E11.22 Type 2 diabetes mellitus w diabetic chronic kidney disease Office Visit 07/18/2018 [facility] Jason, S91.002A Unspecified open 8:52a Services Of wound, left C.M.A. ankle, initial encounter I73.9 Peripheral vascular disease, unspecified E11.69 Type 2 diabetes mellitus with other specified complication Office Visit 12/18/2017 [facility] [place] E11.65 Type 2 diabetes 2:00p Tonya Yoo M.D. mellitus with [address] hyperglycemia I10 Essential (primary) hypertension Office Visit 11/27/2017 [facility] Internal Ismael E11.65 Type 2 diabetes 1:20p Tonya Yoo M.D. mellitus with [address] hyperglycemia I10 Essential (primary) hypertension E78.2 Mixed hyperlipidemia E66.8 Other obesity Office Visit 04/27/2017 [facility] Internal Ismael E11.65 Type 2 diabetes 1:20p Toyna Yoo M.D. mellitus with [address] hyperglycemia I10 Essential (primary) hypertension E78.2 Mixed hyperlipidemia Office Visit 04/17/2017 Chetna Santos I42.9 Cardiomyopathy, 10:40a Cardiology Of [place] unspecified [facility] E11.65 Type 2 diabetes mellitus with hyperglycemia E78.5 Hyperlipidemia, unspecified N18.9 Chronic kidney disease, unspecified E66.8 Other obesity J96.90 Respiratory failure, unsp, unsp w hypoxia or hypercapnia G47.30 Sleep apnea, unspecified Office Visit 02/23/2017 8:40a [facility] Internal Moe Taylor, Z01.818 Encounter for other Medicine - STACKER preprocedural [place] examination E11.65 Type 2 diabetes mellitus with hyperglycemia J44.1 Chronic obstructive pulmonary disease w (acute) exacerbation I10 Essential (primary) hypertension I42.9 Cardiomyopathy, unspecified G47.33 Obstructive sleep apnea (adult) (pediatric) Office Visit 01/15/2017 [facility] [place] E11.65 Type 2 diabetes 1:40p Tonya Yoo M.D. mellitus with [address] hyperglycemia J44.1 Chronic obstructive pulmonary disease w (acute) exacerbation I10 Essential (primary) hypertension I42.9 Cardiomyopathy, unspecified [facility] 2:21p Asspurnima aceves MD obstructive Hospitalists pulmonary disease w (acute) exacerbation N17.9 Acute kidney failure, unspecified Z79.4 retirement (current) use of insulin E11.9 Type 2 diabetes mellitus without complications [facility] J[facility]1 Chronic 2:21p Asspurnima aceves MD obstructive Hospitalists pulmonary disease w (acute) exacerbation E11.9 Type 2 diabetes mellitus without complications 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 obstructive Hospitalists pulmonary disease w (acute) exacerbation R65.10 Sirs of non-infectious origin w/o acute organ dysfunction R74.8 Abnormal levels of other serum enzymes E11.9 Type 2 diabetes mellitus without complications Office Visit 09/01/2016 1:20p [facility] Internal Ismael E11.9 Type 2 diabetes Tonya Yoo M.D. mellitus without [address] complications J96.11 Chronic respiratory failure with hypoxia I10 Essential (primary) hypertension Z12.5 Encounter for screening for malignant neoplasm of prostate Office Visit 02/17/2016 11:00a Pulmonology And Shonda J96.11 Chronic Sleep Services Of MD Lefty respiratory Financial Institution Vice President failure with hypoxia I27.2 Other secondary pulmonary hypertension E66.01 Morbid (severe) obesity due to excess calories G47.9 Sleep disorder, unspecified Office Visit 12/10/2015 11:00a [facility] Internal Ismael J96.11 Chronic Tonya Yoo M.D. respiratory [place] failure with hypoxia E11.9 Type 2 diabetes mellitus without complications I10 Essential (primary) hypertension G47.30 Sleep apnea, unspecified E66.01 Morbid (severe) obesity due to excess calories Office Visit 11/12/2015 9:22a [facility] Xochitl J96.11 Chronic Assoc,purnima Shabazz M.D. respiratory Hospitalists failure with hypoxia N17.9 Acute kidney failure, unspecified R79.89 Other specified abnormal findings of blood chemistry E11.9 Type 2 diabetes mellitus without complications Office Visit 11/11/2015 9:21a [facility] Irasema Yost J96.11 Chronic Assoc,pc N.P. respiratory Hospitalists failure with hypoxia N17.9 Acute kidney failure, unspecified R79.89 Other specified abnormal findings of blood chemistry E11.9 Type 2 diabetes mellitus without complications Office Visit 11/11/2015 1:00p [facility] Internal Ismael Yoo, I10 Essential (primary) Medicine Alex Payton hypertension [address] I42.9 Cardiomyopathy, unspecified E11.65 Type 2 diabetes mellitus with hyperglycemia R09.02 Hypoxemia Z01.818 Encounter for other preprocedural examination H26.9 Unspecified cataract Office Visit 07/29/2015 10:20a [facility] Internal Ismael Yoo, Z23 Encounter for Medicine - Tata immunization [address] E11.65 Type 2 diabetes mellitus with hyperglycemia Z01.818 Encounter for other preprocedural examination I42.9 Cardiomyopathy, unspecified E66.01 Morbid (severe) obesity due to excess calories H26.9 Unspecified cataract Office Visit 04/01/2015 1:00p [facility] Rico Guevara 401.1 Hypertension Tonya Yoo M.D. Benign [address] 278.00 Obesity Unspec 250.02 Diabetes Mellitus W/O Compl Type II Or Unspec Type Uncontrol V76.44 Screening For Malig Greg Prostate Office Visit 09/15/2014 [facility] Rico Guevara 250.60 Diabetes W/ 2:00p Tonya Yoo M.D. Neurological [place] Manifestations Type II Controlled 401.1 Hypertension Benign 110.1 Dermatophytosis Nail V76.44 Screening For Malig Greg Prostate 278.00 Obesity Unspec 285.9 Anemia Unspec V03.82 Streptococcus Pneumoniae Vaccination Spec Other 250.00 Diabetes Mellitus W/O Compl Type II Or Unspec Controlled Office Visit [facility]2014 [facility] 799.02 Hypoxemia Assoc, Hospitalists Tata 428.0 Congestive Heart Failure Unspecified 518.83 Respiratory Failure Chronic 780.97 Altered Mental Status Office Visit 04/26/2014 3:01p [facility], 799.02 Hypoxemia Assoc, Hospitalists Tata 428.0 Congestive Heart Failure Unspecified 518.83 Respiratory Failure Chronic 780.97 Altered Mental Status Office Visit 04/25/2014 3:00p [facility], 799.02 Hypoxemia Assoc, Hospitalists Tata 428.0 Congestive Heart Failure Unspecified 518.83 Respiratory Failure Chronic 780.97 Altered Mental Status Office Visit 04/24/2014 3:00p [facility], 799.02 Hypoxemia Assoc, Hospitaldenise Payton 428.0 Congestive Heart Failure Unspecified 518.83 Respiratory Failure Chronic 780.97 Altered Mental Status Office Visit 04/23/2014 2:59p [facility] Betzaida Martinez, 799.02 Hypoxemia Asspurnima aceves M.D. Hospitalists 428.0 Congestive Heart Failure Unspecified 518.83 Respiratory Failure Chronic Office Visit 04/22/2014 2:59p [facility] Betzaida Martinez, 799.02 Hypoxemia Asspurnima aceves M.D. Hospitalists 428.0 Congestive Heart Failure Unspecified 518.83 Respiratory Failure Chronic Office Visit 04/21/2014 2:58p [facility] Betzaida Martinez 799.02 Hypoxemia Assoc, Tata Hospitalists 518.83 Respiratory Failure Chronic 428.0 Congestive Heart Failure Unspecified Office Visit 04/20/2014 2:57p [facility] Shakira Dudley 799.02 Hypoxemia Assoc, Hospitalists DO 518.83 Respiratory Failure Chronic 780.97 Altered Mental Status 428.0 Congestive Heart Failure Unspecified Office Visit 04/19/2014 2:54p [facility] Shakira Dudley 799.02 Hypoxemia Assoc, Hospitalists DO 518.83 Respiratory Failure Chronic 780.97 Altered Mental Status 428.0 Congestive Heart Failure Unspecified Plan of Treatment Future Appointment(s):03/03/2019 2:20 pm - Rosmery Fisher MD at [facility] Internal Medicine - Iwlgfqafs65/05/2019 11:10 am - Kurt Payne M.D. at [facility] For Infectious Pzdouwoc05/07/2019 10:30 am - Shonda Olea MD at Pulmonology [facility] Sleep Services Of [facility]11/29/2018 - Rosmery Fisher MDL97.529 Non- pressure chronic ulcer of other part of left foot with uComments:Healing well, Recommendations for wound care are to apply medi honey gauze and rolled gauze to the foot daily. He should return to care at the wound clinic.E11.621 Type 2 diabetes mellitus with foot ulcerComments:Hemoglobin A1c done on 10/26/18 was 5.8 % so there is no need for fingerstick glucose on a daily basis, every 2 weeks will suffice.congratulations on turning your blood glucose control around , please decrease basaglar to 20 U twice a dayFollow up:3 jusmybC48.9 Peripheral vascular disease, unspecifiedComments:keep appt with Dr. Orozco13.0 Hypertensive heart and chronic kidney disease with heart faiComments:blood pressure is at goal, we should repeat your kidney function (BMP) in the next few bcnxcN61.9 Iron deficiency anemia, unspecifiedNew Labs:Stool Occult Blood Diag, Ordered: 11/29/18Iron & Iron Binding Capacity, Ordered: Ferritin, Ordered: 11/29/18J44.9 Chronic obstructive pulmonary disease, unspecifiedComments:cont oxygen, symbicort and rynkpdlV56.22 Chronic systolic ( congestive) heart failureNew Labs:Digoxin, Ordered: 11/29/18
[2018-12-27] MEDS ORDERED: Aspirin 81 mg CHEW TAB* 81 MG TAB.CHEW PO ONE (14:59)
--- NOTE | 2018-12-27 15:06 | ED ---
HPI Diabetic - HPI Summary HPI Summary: Pt is a 63 y/o M presenting to the ED with a chief diabetic complaint sent in from the wound clinic. He stated his blood sugar was way too high at 359, and he experienced weakness, diaphoresis, light epigastric region chest pressure lasting about 5-6 minutes one hour ago, as well as some diarrhea. Pt denies any fever, chills, erythema of eyes, sore throat, SOB, cough, abdominal pain, N/V, dysuria, hematuria, myalgia, edema, rash, or dizziness. - History Of Current Complaint Chief Complaint: EDWeakness Time Seen by Provider: 12/27/18 14:30 Hx Obtained From: Patient Onset/Duration: Sudden Onset, Lasting Hours, Resolved Timing: Intermittent Episode Lasting - 1 hour Severity Initially: Moderate Severity Currently: Mild Character: Alert Aggravating: Nothing Alleviating: Nothing Associated Signs & Symptoms: Diaphoresis Related History: DM II - Allergies/Home Medications Allergies/Adverse Reactions: Allergies Allergy/AdvReac Type Severity Reaction Status Date / Time shellfish derived Allergy Severe lips Verified 07/18/18 10:24 swell, itchy Penicillins Allergy Intermediate Rash Verified 07/18/18 10:24 Home Medications: Home Medications Aspirin EC TAB* [Ecotrin EC Low Dose 81 MG*] 81 mg PO DAILY 12/27/18 [History Confirmed 12/27/18] PMH/Surg Hx/FS Hx/Imm Hx Previously Healthy: No Endocrine/Hematology History: Reports: Hx Anticoagulant Therapy - baby aspirin 1 /day, Hx Diabetes - DM II, Hx Anemia - TAKING IRON Cardiovascular History: Reports: Hx Congestive Heart Failure - Systolic HF, Hx Hypertension Denies: Hx Myocardial Infarction, Hx Pacemaker/ICD Respiratory History: Reports: Hx Chronic Obstructive Pulmonary Disease (COPD) - 2L O2, Hx Pulmonary Edema, Hx Sleep Apnea Denies: Hx Asthma GI History: Reports: Hx Hiatal Hernia - 25 years, Other GI Disorders - has some small gall stones- no issues History: Denies: Hx Dialysis, Hx Renal Disease Musculoskeletal History: Reports: Hx Arthritis - mild L4-L5, Other Musculoskeletal History - osteomyalgia bilateral foot Sensory History: Reports: Hx Cataracts, Hx Contacts or Glasses Denies: Hx Legally Blind, Hx Deafness, Hx Hearing Aid Opthamlomology History: Reports: Hx Cataracts, Hx Contacts or Glasses Denies: Hx Legally Blind Neurological History: Reports: Hx Nerve Disease - bilat neuropathy Denies: Hx Headaches Psychiatric History: Reports: Hx Depression Denies: Hx Anxiety, Hx Panic Disorder - Surgical History Surgery Procedure, Year, and Place: dental - teeth removed - sedated, cataracts Hx Anesthesia Reactions: No - Immunization History Date of Tetanus Vaccine: Unk Date of Influenza Vaccine: 07/2018 Immunizations Up to Date: Yes Infectious Disease History: No Infectious Disease History: Denies: Traveled Outside the [place] in Last 30 Days - Family History Known Family History: Positive: Cardiac Disease, Hypertension, Diabetes - Social History Alcohol Use: None Hx Substance Use: No Substance Use Type: Reports: None Hx Tobacco Use: No Smoking Status (MU): Never Smoked Tobacco Amount Used/How Often: only smoked 2 years - never inhaled Have You Smoked in the Last Year: No Review of Systems Positive: Skin Diaphoresis. Negative: Fever, Chills Negative: Erythema Negative: Sore Throat Positive: Chest Pain - "light chest pressure" Negative: Shortness Of Breath, Cough Negative: Abdominal Pain, Vomiting, Nausea Negative: dysuria, hematuria Negative: Myalgia, Edema Negative: Rash Neurological: Negative - dizziness Positive: Weakness All Other Systems Reviewed And Are Negative: Yes Physical Exam - Summary Physical Exam Summary: Constitutional: Well-developed, Well-nourished, Alert. (-) Distressed Skin: Warm, Dry HENT: Normocephalic; Atraumatic Eyes: Conjunctiva normal Neck: Musculoskeletal ROM normal neck. (-) JVD, (-) Stridor, (-) Tracheal deviation Cardio: Rhythm regular, rate normal, Heart sounds normal; Intact distal pulses; The pedal pulses are 2+ and symmetric. Radial pulses are 2+ and symmetric. (-) Murmur Pulmonary/Chest wall: Effort normal. (-) Respiratory distress, (-) Wheezes, (-) Rales Abd: Soft, (-) tenderness, (-) Distension, (-) Guarding, (-) Rebound Musculoskeletal: (-) Edema Lymph: (-) Cervical adenopathy Neuro: Alert, Oriented x3 Psych: Mood and affect Normal Triage Information Reviewed: Yes Vital Signs On Initial Exam: Initial Vitals Temp Pulse Resp BP Pulse Ox 97.4 F 85 19 108/50 97 12/27/18 13:43 12/27/18 13:43 12/27/18 13:43 12/27/18 13:43 12/27/18 13:43 Vital Signs Reviewed: Yes Diagnostics - Vital Signs Vital Signs Temp Pulse Resp BP Pulse Ox 12/27/18 13:43 97.4 F 85 19 108/50 97 - Laboratory Result Diagrams: 12/29/18 05:00 12/30/18 05:06 Lab Statement: Any lab studies that have been ordered have been reviewed, and results considered in the medical decision making process. - Radiology CXR Radiology Interpretation Completed By: Radiologist Summary of Radiographic Findings: Cardiomegaly. No active cardiopulmonary disease. ED physician has reviewed this report. - EKG 1407 Cardiac Rate: NL - 81bpm EKG Rhythm: Sinus Rhythm ST Segment: Normal Ectopy: None Summary of EKG Findings: No STEMI. Diabetic Course/Dx - Course Course Of Treatment: Pt is a 63 y/o M presenting to the ED with a chief diabetic complaint sent in from the wound clinic. He stated his blood sugar was way too high at 359, and he experienced weakness, diaphoresis, light epigastric region chest pressure lasting about 5-6 minutes one hour ago, as well as some diarrhea. Pt denies any fever, chills, erythema of eyes, sore throat, SOB, cough , abdominal pain, N/V, dysuria, hematuria, myalgia, edema, rash, or dizziness. Troponin is 0.04. CXR shows cardiomegaly. No active cardiopulmonary disease. EKG at 1407 shows NSR 81bpm, no STEMI. Dr. Curry made aware of the pt's condition as of 1622 - Diagnoses Provider Diagnoses: Chest pain Discharge - Sign-Out/Discharge Documenting (check all that apply): Patient Departure - Discharge Plan Condition: Stable Disposition: ADMITTED TO [facility] - Billing Disposition and Condition Condition: STABLE Disposition: Admitted to [facility] - Attestation Statements Document Initiated by Scribe: Yes Documenting Scribe: Shakira Dominguez Provider For Whom Olivia is Documenting (Include Credential): Sherif Lazo MD. Scribe Attestation: Shakira Perea, [email or web address] for Sherif Lazo MD. on 12/30/18 at 1051. Scribe Documentation Reviewed: Yes Provider Attestation: The documentation as recorded by the scribe, Shakira Dominguez accurately reflects the service I personally performed and the decisions made by me, Sherif Lazo MD. Status of Scribe Document: Viewed Consult Consult: [id number] - Dr. Curry made aware of the pt's present condition.
[2018-12-27 15:42] LABS: ABS Basophils 0 10^3/ul (0-0.2); ABS Eosinophils 0.2 10^3/ul (0-0.6); ABS Lymphocytes 1.5 10^3/ul (1.0-4.8); ABS Monocytes 0.7 10^3/ul (0-0.8); ABS Neutrophils 12.8 10^3/ul (1.5-7.7); ABS Nucleated RBC 0 10^3/ul; Eosinophil % 1.5 %; Hematocrit 29 % (36-46); Hemoglobin 8.8 g/dL (14.0-18.0); Lymphocyte % 10.1 %; Mean Corpuscular HGB Conc 31 g/dL (31-36); Mean Corpuscular Hemoglobin 23 pg (27-31); Mean Corpuscular Volume 75 fL (80-94); Mean Platelet Volume 7.5 fL (7.4-10.4); Nucleated Red Blood Cells % 0; Platelet Count 344 10^3/uL (150-450); Red Blood Count 3.86 10^6 /uL (4.18-5.48); Red Cell Distribution Width 16 % (10.5-15); White Blood Count 15.3 10^3/uL (3.5-10.8)
[2018-12-27 15:57] LABS: INR 1.03 (0.77-1.02)
[2018-12-27 16:09] LABS: Troponin I 0.04 ng/mL (<0.04)
[2018-12-27 16:45] LABS: ALT 3 U/L (7-52); AST 8 U/L (13-39); Albumin 3.2 g/dL (3.2-5.2); Albumin/Globulin Ratio 0.7 (1-3); Alkaline Phosphatase 56 U/L (34-104); Anion Gap 9 mmol/L (2-11); BUN/Creatinine Ratio 9.8 (8-20); Blood Urea Nitrogen 21 mg/dL (6-24); CO2 Carbon Dioxide 31 mmol/L (22-32); Calcium 8.5 mg/dL (8.6-10.3); Chloride 95 mmol/L (101-111); EGFR African American 37.5 (>60); Globulin 4.5 g/dL (2-4); Glucose 321 mg/dL (70-100); Potassium 4.7 mmol/L (3.5-5.0); Sodium 135 mmol/L (135-145); Total Protein 7.7 g/dL (6.4-8.9)
[2018-12-27] MEDS ORDERED: Dextrose 50% Syringe 50 ML* 25 GM/50 ML SYRINGE IV PUSH PRN (18:54)
[2018-12-27] MEDS ORDERED: Al Hydrox/Mg Hydrox/Simet LIQ* 30 ML UDC PO PRN (18:58)
[2018-12-27] MEDS ORDERED: Magnesium Hydroxide LIQ* 30 ML UDC PO PRN (18:58)
[2018-12-27] MEDS ORDERED: Acetaminophen TAB* 325 MG PO PRN (18:58)
[2018-12-27] MEDS ORDERED: Albuterol HFA INHALER* 8 gm MDI INH PRN (19:03)
[2018-12-27] MEDS ORDERED: LORazepam TAB(*) 0.5 MG PO PRN (19:03)
[2018-12-27] MEDS ORDERED: NS 0.9% 1000 ML** 1,000 ML IV SCH (19:30)
[2018-12-27 19:50] LABS: Magnesium 1.2 mg/dL (1.9-2.7)
[2018-12-27 20:03] LABS: % Iron Saturation 8 % (15-55); Digoxin 1.7 ng/ml (0.8-2.0); Iron 22 ug/dL (50-212); Total Iron Binding Capacity 259 mcg/dL (250-450); Transferrin 185 mg/dL (203-362)
[2018-12-27 20:07] LABS: Troponin I 0.04 ng/mL (<0.04)
[2018-12-27 20:18] LABS: TSH (Thyroid Stimulating Horm) 1.98 mcIU/mL (0.34-5.60)
[2018-12-27 20:26] LABS: Ferritin 96.4 ng/mL (24-336)
--- NOTE | 2018-12-27 20:36 | HP ---
HISTORY AND PHYSICAL: ADDENDUM: ASSESSMENT AND PLAN: Leukocytosis: On presentation to the ED, the patient had a CBC, which revealed leukocytosis of 15.3. The patient otherwise has no signs and symptoms of infection including fever, tachycardia, tachypnea. The patient' s chest x-ray did not reveal any upper respiratory concerns. I have ordered the patient to have an urinalysis. I have also ordered a flu swab for the patient. His leukocytosis could be elevated given his elevated blood sugar. We will repeat a CBC tomorrow and continue to monitor the patient for signs and symptoms of infection. ABIDA GUILLERMO, KEYSHAWN [id number]/[facility] #: [id number] MTDJewel
[2018-12-27] MEDS: Mometasone/Formoter 100/5 MDI INH SCH ×2 (21:09→21:12)
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
[2018-12-27] MEDS: Spironolactone TAB* 25 MG PO SCH (22:00)
[2018-12-27] MEDS: Metoprolol Tartrate TAB* 50 mg PO SCH (22:00)
[2018-12-27] MEDS: Tamsulosin CAP* 0.4 MG PO SCH (22:00)
[2018-12-27] MEDS: Insulin LISPRO* 1 UNITS UNIT SUBCUT SCH (22:02)
[2018-12-27] MEDS: Heparin VIAL(*) 5000 UNITS/ML VIAL (FIVE THOUSAND) SUBCUT SCH (22:03)
[2018-12-27] MEDS: Insulin GLARGINE(*) 1 UNITS UNIT SUBCUT SCH (22:03)
[2018-12-27 22:41] LABS: Troponin I 0.04 ng/mL (<0.04)
[2018-12-27] MEDS: Ferrous Sulfate TAB* 325 MG PO SCH (22:52)
[2018-12-28 02:40] LABS: Troponin I 0.04 ng/mL (<0.04)
[2018-12-28 02:42] LABS: Influenza A Molecular NEGATIVE (Negative); Influenza B Molecular NEGATIVE (Negative)
[2018-12-28] MEDS: Heparin VIAL(*) 5000 UNITS/ML VIAL (FIVE THOUSAND) SUBCUT SCH ×3 (05:44→21:26)
[2018-12-28 07:01] LABS: ABS Basophils 0 10^3/ul (0-0.2); ABS Eosinophils 0.2 10^3/ul (0-0.6); ABS Lymphocytes 1.9 10^3/ul (1.0-4.8); ABS Monocytes 0.6 10^3/ul (0-0.8); ABS Neutrophils 9.9 10^3/ul (1.5-7.7); ABS Nucleated RBC 0 10^3/ul; Hematocrit 27 % (36-46); Hemoglobin 8.2 g/dL (14.0-18.0); Lymphocyte % 15.2 %; Mean Corpuscular HGB Conc 31 g/dL (31-36); Mean Corpuscular Hemoglobin 23 pg (27-31); Mean Corpuscular Volume 74 fL (80-94); Mean Platelet Volume 7.7 fL (7.4-10.4); Nucleated Red Blood Cells % 0; Platelet Count 306 10^3/uL (150-450); Red Cell Distribution Width 16 % (10.5-15); White Blood Count 12.7 10^3/uL (3.5-10.8)
[2018-12-28 07:19] LABS: Albumin 2.9 g/dL (3.2-5.2); Albumin/Globulin Ratio 0.7 (1-3); BUN/Creatinine Ratio 10.4 (8-20); Calcium 8.3 mg/dL (8.6-10.3); EGFR African American 36.2 (>60); EGFR Non-African American 29.9 (>60); Potassium 4.1 mmol/L (3.5-5.0); Total Bilirubin 0.3 mg/dL (0.2-1.0); Total Protein 6.9 g/dL (6.4-8.9)
[2018-12-28] MEDS: Mometasone/Formoter 100/5 MDI INH SCH ×2 (07:41→19:54)
[2018-12-28] MEDS: Umeclidinium 62.5 MDI(NF) MDI INH SCH (08:04)
[2018-12-28] MEDS: Insulin LISPRO* 1 UNITS UNIT SUBCUT SCH ×4 (08:58→20:36)
[2018-12-28] MEDS: Furosemide TAB* 40 MG PO SCH (08:59)
[2018-12-28] MEDS: Insulin GLARGINE(*) 1 UNITS UNIT SUBCUT SCH ×2 (08:59→20:36)
[2018-12-28] MEDS: Ferrous Sulfate TAB* 325 MG PO SCH ×3 (08:59→20:35)
[2018-12-28] MEDS: Aspirin EC TAB* 81 MG TAB.EC PO SCH (08:59)
[2018-12-28] MEDS: Potassium Chlor TAB* 10 MEQ TAB.ER PO SCH (08:59)
[2018-12-28] MEDS: Cyanocobalamin TAB* 500 MCG PO SCH (08:59)
[2018-12-28] MEDS: Metoprolol Tartrate TAB* 50 mg PO SCH ×2 (09:00→20:35)
[2018-12-28] MEDS: Pantoprazole TAB * 40 MG TAB PO SCH (09:00)
[2018-12-28 09:22] LABS: Urine Appearance Cloudy; Urine Bacteria Absent (Absent); Urine Bilirubin Negative (Negative); Urine Blood 1+ (Negative); Urine Color Yellow; Urine Glucose 2+(150 mg/dL) (Negative); Urine Ketones Negative (Negative); Urine Nitrite Negative (Negative); Urine Protein 2+(100 mg/dL) (Negative); Urine Red Blood Cell Trace(0-2/hpf) (Absent); Urine Specific Gravity 1.012 (1.010-1.030); Urine Squamous Epithelial Cell Present (Absent); Urine Urobilinogen Negative (Negative); Urine White Blood Cell Trace(0-5/hpf) (Absent)
[2018-12-28] MEDS ORDERED: NS 0.9% 1000 ML** 1,000 ML IV SCH (12:30)
[2018-12-28] MEDS: Digoxin TAB* 0.125 MG PO SCH (17:20)
--- NOTE | 2018-12-28 17:31 | PN ---
Subjective Date of Service: 12/28/18 Interval History: Mr. Hatch is feeling better today. He denies ever having any chest pain yesterday. He reports his only presenting symptoms were malaise and diaphoresis which are now resolved. Denies CP, SOB, N/V. He did have 1 episode of diarrhea, though reports this is typical with his metformin. He was recently in [facility] and has been home for 7 weeks. He reports when he left rehab, his A1c was 5.7%. He was told by his PCP that he no longer had to check his FS because of this. He has been doing well otherwise since going back home, until the episode yesterday. Does have visiting nurses coming in 3 times a week to help him at home and he feels he has been managing well. No concerns or complaints from nursing. Family History: Unchanged from Admission Social History: Unchanged from Admission Past Medical History: Unchanged from Admission Objective Active Medications: Acetaminophen (Tylenol Tab*) 650 mg PO Q4H PRN FEVER/PAIN Al Hydrox/Mg Hydrox/Simethicone (Maalox Plus*) 30 ml PO Q6H PRN INDIGESTION Albuterol (Ventolin Hfa Inhaler*) 2 puff INH Q6HR PRN SOB/WHEEZING Aspirin (Aspirin Ec Tab*) 81 mg PO DAILY MAVIS Cyanocobalamin (Vitamin B12 Tab*) 1,000 mcg PO DAILY MAVIS Dextrose (D50w Syringe 50 Ml*) 12.5 gm IV PUSH .FOR FS < 60 - SS PRN FS < 60 Digoxin (Lanoxin Tab*) 0.125 mg PO DAILY@1700 MAVIS Ferrous Sulfate (Ferrous Sulfate Tab*) 325 mg PO TID MAVIS Furosemide (Lasix Tab*) 40 mg PO DAILY MAVIS Heparin Sodium (Porcine) (Heparin Vial(*)) 5,000 units SUBCUT Q8HR MAVIS Sodium Chloride (Ns 0.9% 1000 Ml) 1,000 mls @ 75 mls/hr IV PER RATE MAVIS Insulin Glargine (Lantus(*)) 25 units SUBCUT Q12H MAVIS Insulin Human Lispro (Humalog*) 0 units SUBCUT ACHS MAVIS; Protocol Lorazepam (Ativan Tab(*)) 0.5 mg PO Q8HR PRN ANXIETY Magnesium Hydroxide (Milk Of Magnesia Liq*) 30 ml PO Q4H PRN CONSTIPATION Metoprolol Tartrate (Lopressor Tab*) 50 mg PO BID MAVIS Mometasone Furoate/Formoterol Fumar (Dulera 100/5 Mdi*) 1 puff INH BID MAVIS Pantoprazole Sodium (Protonix Tab*) 40 mg PO DAILY MAVIS Potassium Chloride (Klor Con Er Tab*) 10 meq PO DAILY MAVIS Spironolactone (Aldactone Tab*) 25 mg PO BEDTIME MAVIS Tamsulosin HCl (Flomax Cap*) 0.4 mg PO BEDTIME MAVIS Umeclidinium [place] (Incruse Ellipta Mdi (Nf)) 1 inh INH DAILY MAVIS Vital Signs - 8 hr 12/28/18 12/28/18 11:26 17:20 Temperature 97.5 F Pulse Rate 68 78 Respiratory 20 Rate Blood Pressure 131/56 (mmHg) O2 Sat by Pulse 95 Oximetry Oxygen Devices in Use Now: Nasal Cannula - 1L Appearance: Middle-aged male laying in bed in NAD Eyes: No Scleral Icterus Ears/Nose/Mouth/Throat: Mucous Membranes Moist Neck: NL Appearance and Movements; NL JVP, Trachea Midline Respiratory: Symmetrical Chest Expansion and Respiratory Effort, Clear to Auscultation Cardiovascular: NL Sounds; No Murmurs; No JVD, RRR Abdominal: NL Sounds; No Tenderness; No Distention Extremities: No Edema Neurological: Alert and Oriented x 3 Lines/Tubes/Other Access: Clean, Dry and Intact Peripheral IV Nutrition: Taking PO's Result Diagrams: 12/28/18 06:42 12/28/18 06:42 Assess/Plan/Problems-Billing Assessment: Mr. Hatch is a 63 yo M with PMH of DM, systolic CHF, HTN, afib, chronic respiratory failure on 1L, COPD, CKD, anemia, and recently treated for osteomyelitis of his left foot; who presented to the ED with c/o diaphoresis, malaise, and questionable CP, and was admitted because of his concerning constellation of symptoms. - Patient Problems (1) Acute on chronic kidney failure Code(s): N17.9 - ACUTE KIDNEY FAILURE, UNSPECIFIED; N18.9 - CHRONIC KIDNEY DISEASE, UNSPECIFIED Comment: - Baseline CKD stage 3 - Creatinine 2.22 today, baseline around 1.5 - Suspect this is secondary to hypovolemia from hyperglycemia - Will give 1L additional IVF and recheck BMP in the AM (2) Diaphoresis Code(s): R61 - GENERALIZED HYPERHIDROSIS Comment: - With associated malaise, but no CP - Etiology is BG which was >300 on arrival; symptoms resolved with BG correction - No acute cardiac concerns; trops at baseline and no EKG changes (3) Leukocytosis Code(s): D72.829 - ELEVATED WHITE BLOOD CELL COUNT, UNSPECIFIED Comment: - No concern for infectious process - Suspect this is secondary to hyperglycemia (4) Diabetes mellitus, type 2 Comment: - A1c 5.8% in [facility], now up to 8.7%; this would explain his diaphoresis d/t rapid changes in glucose - Hold metformin and linagliptin - Continue Lantus, Lispro SS (5) Atrial fibrillation Code(s): I48.91 - UNSPECIFIED ATRIAL FIBRILLATION Comment: - Rate controlled - Has not been on anticoagulation d/t severe anemia; it was suggested he have a colonoscopy, though he has not followed up - Continue dignoxin, metoprolol (6) Chronic systolic congestive heart failure Code(s): I50.22 - CHRONIC SYSTOLIC (CONGESTIVE) HEART FAILURE Comment: - Stable, not in exacerbation - Recent echo shows EF 50-55% - Monitor strict I&O, daily weights - Continue furosemide, spironolactone, digoxin, metoprolol (7) COPD (chronic obstructive pulmonary disease) Code(s): J44.9 - CHRONIC OBSTRUCTIVE PULMONARY DISEASE, UNSPECIFIED Comment: - Stable, not in exacerbation and at baseline oxygen requirements - Continue Dulera, Incruse Ellipta (8) Chronic respiratory failure with hypercapnia Comment: - Stable, at baseline of 1L, BiPAP at HS - [place] to obesity hypoventilation syndrome and COPD (9) Anemia Code(s): D64.9 - ANEMIA, UNSPECIFIED Comment: - Stable, consistent with baseline - Continue ferrous sulfate, vitamin B12 (10) DVT prophylaxis Comment: - Heparin SQ (11) Full code status Code(s): Z78.9 - OTHER SPECIFIED HEALTH STATUS Comment: Status and Disposition: Observation for ELIZA. Anticipate d/c home when creatinine returns to baseline, hopefully tomorrow. Attending: Cam Arvizu
[2018-12-28] MEDS: Spironolactone TAB* 25 MG PO SCH (20:34)
[2018-12-28] MEDS: Tamsulosin CAP* 0.4 MG PO SCH (20:35)
[2018-12-29] MEDS: Heparin VIAL(*) 5000 UNITS/ML VIAL (FIVE THOUSAND) SUBCUT SCH ×3 (05:33→20:38)
[2018-12-29 05:35] LABS: ABS Basophils 0 10^3/ul (0-0.2); ABS Eosinophils 0.3 10^3/ul (0-0.6); ABS Monocytes 0.5 10^3/ul (0-0.8); ABS Neutrophils 8.2 10^3/ul (1.5-7.7); ABS Nucleated RBC 0 10^3/ul; Eosinophil % 2.8 %; Hematocrit 25 % (36-46); Hemoglobin 8.2 g/dL (14.0-18.0); Lymphocyte % 18.3 %; Mean Corpuscular HGB Conc 33 g/dL (31-36); Mean Corpuscular Hemoglobin 24 pg (27-31); Mean Corpuscular Volume 74 fL (80-94); Mean Platelet Volume 7.9 fL (7.4-10.4); Nucleated Red Blood Cells % 0; Platelet Count 319 10^3/uL (150-450); Red Blood Count 3.41 10^6 /uL (4.18-5.48); Red Cell Distribution Width 16 % (10.5-15)
[2018-12-29 05:50] LABS: BUN/Creatinine Ratio 11.2 (8-20); Calcium 8.2 mg/dL (8.6-10.3); EGFR African American 39.6 (>60); EGFR Non-African American 32.8 (>60)
[2018-12-29] MEDS: Umeclidinium 62.5 MDI(NF) MDI INH SCH (07:18)
[2018-12-29] MEDS: Mometasone/Formoter 100/5 MDI INH SCH ×2 (07:20→19:42)
[2018-12-29] MEDS: Insulin GLARGINE(*) 1 UNITS UNIT SUBCUT SCH ×2 (08:45→20:38)
[2018-12-29] MEDS: Ferrous Sulfate TAB* 325 MG PO SCH ×3 (08:45→20:35)
[2018-12-29] MEDS: Pantoprazole TAB * 40 MG TAB PO SCH (08:45)
[2018-12-29] MEDS: Aspirin EC TAB* 81 MG TAB.EC PO SCH (08:45)
[2018-12-29] MEDS: Metoprolol Tartrate TAB* 50 mg PO SCH ×2 (08:45→20:35)
[2018-12-29] MEDS: Potassium Chlor TAB* 10 MEQ TAB.ER PO SCH (08:45)
[2018-12-29] MEDS: Insulin LISPRO* 1 UNITS UNIT SUBCUT SCH ×4 (08:45→20:38)
[2018-12-29] MEDS: Furosemide TAB* 40 MG PO SCH (08:46)
[2018-12-29] MEDS: Cyanocobalamin TAB* 500 MCG PO SCH (08:46)
[2018-12-29] MEDS ORDERED: Lactated Ringers 1000 ML Bag* 1,000 ML IV SCH (13:00)
--- NOTE | 2018-12-29 14:15 | PN ---
Subjective Date of Service: 12/29/18 Interval History: Mr. Hatch is feeling well today. He offers no complaints. No further episodes of diaphoresis or malaise. He is in good spirits. Denies CP, SOB, N/V. Motivated to improve his health. No concerns or complaints from nursing. Family History: Unchanged from Admission Social History: Unchanged from Admission Past Medical History: Unchanged from Admission Objective Active Medications: Acetaminophen (Tylenol Tab*) 650 mg PO Q4H PRN FEVER/PAIN Al Hydrox/Mg Hydrox/Simethicone (Maalox Plus*) 30 ml PO Q6H PRN INDIGESTION Albuterol (Ventolin Hfa Inhaler*) 2 puff INH Q6HR PRN SOB/WHEEZING Aspirin (Aspirin Ec Tab*) 81 mg PO DAILY MAVIS Cyanocobalamin (Vitamin B12 Tab*) 1,000 mcg PO DAILY MAVIS Dextrose (D50w Syringe 50 Ml*) 12.5 gm IV PUSH .FOR FS < 60 - SS PRN FS < 60 Digoxin (Lanoxin Tab*) 0.125 mg PO DAILY@1700 MAVIS Ferrous Sulfate (Ferrous Sulfate Tab*) 325 mg PO TID MAVIS Furosemide (Lasix Tab*) 40 mg PO DAILY MAVIS Heparin Sodium (Porcine) (Heparin Vial(*)) 5,000 units SUBCUT Q8HR MAVIS Lactated Ringer's (Lactated Ringers 1000 Ml Bag*) 1,000 mls @ 125 mls/hr IV PER RATE MAVIS Insulin Glargine (Lantus(*)) 25 units SUBCUT Q12H MAVIS Insulin Human Lispro (Humalog*) 0 units SUBCUT ACHS MAVIS; Protocol Lorazepam (Ativan Tab(*)) 0.5 mg PO Q8HR PRN ANXIETY Magnesium Hydroxide (Milk Of Magnesia Liq*) 30 ml PO Q4H PRN CONSTIPATION Metoprolol Tartrate (Lopressor Tab*) 50 mg PO BID MAVIS Mometasone Furoate/Formoterol Fumar (Dulera 100/5 Mdi*) 1 puff INH BID MAVIS Pantoprazole Sodium (Protonix Tab*) 40 mg PO DAILY MAVIS Potassium Chloride (Klor Con Er Tab*) 10 meq PO DAILY MAVIS Spironolactone (Aldactone Tab*) 25 mg PO BEDTIME MAVIS Tamsulosin HCl (Flomax Cap*) 0.4 mg PO BEDTIME MAVIS Umeclidinium [place] (Incruse Ellipta Mdi (Nf)) 1 inh INH DAILY MAVIS Vital Signs - 8 hr 12/29/18 12/29/18 12/29/18 07:21 07:38 08:00 Temperature 97.2 F Pulse Rate 68 67 Respiratory 14 20 20 Rate Blood Pressure 141/60 (mmHg) O2 Sat by Pulse 98 98 Oximetry 12/29/18 11:46 Temperature 98.3 F Pulse Rate 72 Respiratory 18 Rate Blood Pressure 144/60 (mmHg) O2 Sat by Pulse 95 Oximetry Oxygen Devices in Use Now: Nasal Cannula - 1L Appearance: Middle-aged male laying in bed in NAD Eyes: No Scleral Icterus Ears/Nose/Mouth/Throat: Mucous Membranes Moist Neck: NL Appearance and Movements; NL JVP, Trachea Midline Respiratory: Symmetrical Chest Expansion and Respiratory Effort, Clear to Auscultation Cardiovascular: NL Sounds; No Murmurs; No JVD, RRR Abdominal: NL Sounds; No Tenderness; No Distention Extremities: No Edema Neurological: Alert and Oriented x 3 Lines/Tubes/Other Access: Clean, Dry and Intact Peripheral IV Nutrition: Taking PO's Result Diagrams: 12/29/18 05:00 12/29/18 05:00 Assess/Plan/Problems-Billing Assessment: Mr. Hatch is a 63 yo M with PMH of DM, systolic CHF, HTN, afib, chronic respiratory failure on 1L, COPD, CKD, anemia, and recently treated for osteomyelitis of his left foot; who presented to the ED with c/o diaphoresis, malaise, and questionable CP, and was admitted because of his concerning constellation of symptoms. - Patient Problems (1) Acute on chronic kidney failure Code(s): N17.9 - ACUTE KIDNEY FAILURE, UNSPECIFIED; N18.9 - CHRONIC KIDNEY DISEASE, UNSPECIFIED Comment: - Baseline CKD stage 3 - Creatinine improved today, but remains elevated; baseline around 1.5 - Suspect this is secondary to hypovolemia from hyperglycemia - Will give 1L additional IVF and recheck BMP in the AM; cautious with IVF d/t history of CHF (2) Diaphoresis Code(s): R61 - GENERALIZED HYPERHIDROSIS Comment: - With associated malaise, but no CP - Etiology is BG which was >300 on arrival; symptoms resolved with BG correction - No acute cardiac concerns; trops at baseline and no EKG changes (3) Leukocytosis Code(s): D72.829 - ELEVATED WHITE BLOOD CELL COUNT, UNSPECIFIED Comment: - Resolved - No concern for infectious process - Suspect this is secondary to hyperglycemia (4) Diabetes mellitus, type 2 Comment: - A1c 5.8% in [place], now up to 8.7%; this would explain his diaphoresis d/t rapid changes in glucose - Hold metformin and linagliptin - Continue Lantus, Lispro SS (5) Atrial fibrillation Code(s): I48.91 - UNSPECIFIED ATRIAL FIBRILLATION Comment: - Rate controlled - Has not been on anticoagulation d/t severe anemia; it was suggested he have a colonoscopy, though he has not followed up - Continue dignoxin, metoprolol (6) Chronic systolic congestive heart failure Code(s): I50.22 - CHRONIC SYSTOLIC (CONGESTIVE) HEART FAILURE Comment: - Stable, not in exacerbation - Recent echo shows EF 50-55% - Monitor strict I&O, daily weights - Continue furosemide, spironolactone, digoxin, metoprolol (7) COPD (chronic obstructive pulmonary disease) Code(s): J44.9 - CHRONIC OBSTRUCTIVE PULMONARY DISEASE, UNSPECIFIED Comment: - Stable, not in exacerbation and at baseline oxygen requirements - Continue Dulera, Incruse Ellipta (8) Chronic respiratory failure with hypercapnia Comment: - Stable, at baseline of 1L, BiPAP at HS - [place] to obesity hypoventilation syndrome and COPD (9) Anemia Code(s): D64.9 - ANEMIA, UNSPECIFIED Comment: - Stable, consistent with baseline - Continue ferrous sulfate, vitamin B12 (10) DVT prophylaxis Comment: - Heparin SQ (11) Full code status Code(s): Z78.9 - OTHER SPECIFIED HEALTH STATUS Comment: Status and Disposition: Inpatient for ELIZA. Anticipate d/c home when creatinine returns to baseline, hopefully tomorrow. Attending: Cam Arvizu
[2018-12-29] MEDS: Digoxin TAB* 0.125 MG PO SCH (17:15)
[2018-12-29] MEDS: Tamsulosin CAP* 0.4 MG PO SCH (20:35)
[2018-12-29] MEDS: Spironolactone TAB* 25 MG PO SCH (20:35)
[2018-12-30] MEDS: Heparin VIAL(*) 5000 UNITS/ML VIAL (FIVE THOUSAND) SUBCUT SCH ×2 (05:07→13:30)
[2018-12-30 06:22] LABS: BUN/Creatinine Ratio 11.9 (8-20); Calcium 8.4 mg/dL (8.6-10.3); EGFR African American 42.2 (>60); EGFR Non-African American 34.9 (>60); Potassium 3.7 mmol/L (3.5-5.0)
[2018-12-30] MEDS: Umeclidinium 62.5 MDI(NF) MDI INH SCH (07:10)
[2018-12-30] MEDS: Mometasone/Formoter 100/5 MDI INH SCH (08:12)
[2018-12-30] MEDS: Insulin GLARGINE(*) 1 UNITS UNIT SUBCUT SCH (08:56)
[2018-12-30] MEDS: Ferrous Sulfate TAB* 325 MG PO SCH ×2 (08:56→13:30)
[2018-12-30] MEDS: Potassium Chlor TAB* 10 MEQ TAB.ER PO SCH (08:56)
[2018-12-30] MEDS: Metoprolol Tartrate TAB* 50 mg PO SCH (08:56)
[2018-12-30] MEDS: Insulin LISPRO* 1 UNITS UNIT SUBCUT SCH ×2 (08:56→13:30)
[2018-12-30] MEDS: Pantoprazole TAB * 40 MG TAB PO SCH (08:57)
[2018-12-30] MEDS: Cyanocobalamin TAB* 500 MCG PO SCH (08:57)
[2018-12-30] MEDS: Furosemide TAB* 40 MG PO SCH (08:57)
[2018-12-30] MEDS: Aspirin EC TAB* 81 MG TAB.EC PO SCH (08:57)
[2018-12-30 13:05] VITALS: BP 137/50
--- NOTE | 2018-12-30 21:55 | DS ---
CC: Dr. Rosmery Fisher * DISCHARGE SUMMARY: DATE OF ADMISSION: 12/27/18 DATE OF DISCHARGE: 12/30/18 PRIMARY CARE PROVIDER: Dr. Rosmery Fisher. ATTENDING PHYSICIAN: Dr. Betzaida Martinez * (dictated by Angela Rodriguez NP). PRIMARY DIAGNOSES: 1. Acute kidney injury superimposed on chronic kidney disease stage 3. 2. Diaphoresis secondary to hyperglycemia. 3. Leukocytosis secondary to hyperglycemia. SECONDARY DIAGNOSES: 1. Diabetes mellitus type 2. 2. Atrial fibrillation. 3. Chronic systolic congestive heart failure. 4. Chronic obstructive pulmonary disease. 5. Chronic hypercapnic respiratory failure. 6. Anemia, iron deficiency, and B12 deficiency. STUDIES WHILE IN THE HOSPITAL: 1. EKG on 12/27/18 shows normal sinus rhythm at a rate of 81, QTc 408, Q-waves present in III and aVF. Minimal ST elevation in V1 through V3, though this is consistent with previous EKGs on file. 2. Chest x-ray on 12/27/18 reads as cardiomegaly, no acute cardiopulmonary disease. 3. EKG on 12/28/18 shows normal sinus rhythm with a rate of 67, QTc 395. Again noted are Q-waves in III and aVF and mild ST elevation in V1 through V3. HISTORY OF PRESENT ILLNESS AND HOSPITAL COURSE: Mr. Thapa is a 63-year-old male with past medical history of diabetes, chronic systolic congestive heart failure, hypertension, atrial fibrillation, chronic respiratory failure, COPD, CKD stage 3, and recent treatment for osteomyelitis, who presented to the emergency room on 12/27/18 with complaints of fatigue, diaphoresis, and an elevated blood glucose. Please see the history and physical by Ashley Mckeon NP, for a complete summary of events leading up to this hospitalization. In short, the patient was sent from the wound clinic where he was following up with a left foot wound. This morning, he suddenly began to feel very tired, fatigued, and slightly diaphoretic. In the history and physical, it was reported that the patient had epigastric chest pain, though on subsequent encounters, the patient denied any chest pain. The patient took his blood sugar , and it was noted to be 359, and he was sent to the emergency room. In the emergency room, he was noted to have an elevated glucose of 321 and an elevated creatinine of 2.15. He had mild leukocytosis of 15.3. Because of the concern for chest pain, the patient was admitted by the hospitalist service. The patient had serial troponins, which were flat at 0.04, which is consistent with his baseline. He did not have any EKG changes and EKG results are noted above. He had no further episodes of fatigue or diaphoresis, and again the patient denied any chest pain. Because of this, it was deemed not necessary to do a stress test. I will note that the patient was recently a resident at [facility] as he was receiving IV antibiotics for a left foot osteomyelitis. He reports that at that time his blood glucose was well controlled, and he did, on 10/26/18, have an A1c of 5.8%. He was at [facility] for approximately 6 weeks and then returned home to his apartment where he has had visiting nurse services and he reports he has been functioning well. The patient reports that he was told that he no longer needed to check his blood glucose because of his low A1c and so he had not been checking it regularly. On this hospitalization, the patient had an A1c of 8.7% which is a significant jump of approximately 3% in the last 2 months. I suspect hyperglycemia is the reason for his diaphoresis and fatigue as he has had well-controlled glucose recently and, now for whatever reason, has had worsening glucose control. After admission, the patient's blood glucose generally stayed below 200, and he was only on 25 units of Lantus b.i.d. and sliding scale lispro while here in the hospital. His linagliptin and metformin were held. The patient was noted to have acute kidney injury on arrival. This was secondary to hypovolemia from hyperglycemia. His creatinine peaked at 2.22. I did give him gentle IV hydration. He does have a history of congestive heart failure, so we remained judicious. As of today, the patient's creatinine is 1.94 which is steadily trending down. His baseline creatinine is around 1.5. Because his creatinine is trending down and this will likely take some time to normalize, it was felt as though the patient was stable for discharge as he has been asymptomatic otherwise and has not had any recurrent symptoms similar to those that he presented with. On exam today, he reports feeling well. He offers no complaints. He has no edema and is urinating well. Mr. Thapa is stable for discharge today. Vital signs are as follows: Temp 97.2, heart rate 65, respiratory rate 20, oxygen saturation 98% on 1 L nasal cannula, blood pressure 137/50. DISCHARGE MEDICATIONS: Changed medications: 1. Glargine 25 units subcu b.i.d. (previously was 20 units b.i.d.). 2. Metformin 500 mg p.o. b.i.d. (previously was 1000 mg b.i.d.). Continued medications: 1. Albuterol MDI 2 puffs q.6 hours p.r.n. shortness of breath or wheezing. 2. Albuterol ipratropium 1 neb q.4 hours p.r.n. shortness of breath or wheezing. 3. Aspirin 81 mg p.o. daily. 4. Symbicort 80/4.5 one puff b.i.d. 5. Vitamin B12 1000 mcg p.o. daily. 6. Digoxin 0.125 mg p.o. daily. 7. Ferrous sulfate 325 mg p.o. t.i.d. 8. Furosemide 40 mg p.o. daily (resume on 01/02/19). 9. Linagliptin 5 mg p.o. daily. 10. Lorazepam 0.5 mg p.o. q.8 hours p.r.n. anxiety. 11. Metoprolol tartrate 50 mg p.o. b.i.d. 12. Pantoprazole 40 mg p.o. daily. 13. Potassium chloride 10 mEq p.o. daily. 14. Spironolactone 25 mg p.o. at bedtime. 15. Tamsulosin 0.4 mg p.o. at bedtime. 16. Incruse Ellipta 62.5 mcg 1 inhalation daily. DISCHARGE PLAN: Mr. Thapa will be discharged home back with visiting nurse services. Activity will be as tolerated. I will note that he is nonambulatory at baseline but is able to transfer himself in and out of his wheelchair. Diet should be diabetic consistent carb. Medications are noted above. Due to his acute kidney injury, I have advised the patient that he should hold his furosemide for 2 days after discharge and should resume this on 01/02/19. I have advised him that if in the next 2 days he notices any lower extremity edema , he should restart his furosemide at that time. Additionally, I will note that the patient was on 1000 mg b.i.d. of metformin, though due to his GFR, he should be on renal dosing and so I have decreased this to 500 mg b.i.d. Additionally, I have increased the patient's glargine to 25 units b.i.d., this was previously 20 units b.i.d. I anticipate that this will need to be increased further by his PCP especially since I have decreased his metformin. He will continue his other usual medications as noted above and I have made no further changes. He will need to follow up with his primary care provider in 4 to 7 days. He will need to have a repeat BMP in 1 week, which I have provided him an order for, to recheck his kidney function. The results of that will go to Dr. Fisher, and I have advised the patient that he should attempt to schedule an appointment with Dr. Fisher next Sunday after she has those results. The patient has been instructed to return to the emergency room or nearest hospital for any worsening of symptoms, shortness of breath, lightheadedness, dizziness, chest discomfort, high fevers, chills, night sweats , loss of consciousness or any other worrisome signs or symptoms. DISCHARGE CONDITION: Good. DISCHARGE DISPOSITION: Home. This is a summarized report of a complex medical history and hospital stay. For further details, please see the entire medical record. TIME SPENT: Approximately 45 minutes were spent on this discharge. ANGELA RODRIGUEZ NP [id number]/CPS #: [id number] TITUS
== END 2018-12-30 14:10 | disposition home or self-care (01) | DRG 638 ==
LOC: ED 13:40 → MEDTELE 18:58 → OBSVTOIN 12-29 14:16
PROVIDERS: ADMIT Student in an Organized Health Care Education/Training Program; ATTEND Internal Medicine
PROC: 5A09357 Assistance with Respiratory Ventilation, Less than 24 Consecutive Hours, Continuous Positive Airway Pressure (ICD-10-PCS; principal; 2018-12-28)
DX: E11.65 Type 2 diabetes mellitus with hyperglycemia (principal); N17.9 Acute kidney failure, unspecified; I13.0 Hypertensive heart and chronic kidney disease with heart failure and stage 1 through stage 4 chronic kidney disease, or unspecified chronic kidney disease; I50.22 Chronic systolic (congestive) heart failure; J96.12 Chronic respiratory failure with hypercapnia; E66.2 Morbid (severe) obesity with alveolar hypoventilation; M86.9 Osteomyelitis, unspecified; E53.0 Riboflavin deficiency; M47.816 Spondylosis without myelopathy or radiculopathy, lumbar region; E11.42 Type 2 diabetes mellitus with diabetic polyneuropathy; E11.22 Type 2 diabetes mellitus with diabetic chronic kidney disease; S90.922A Unspecified superficial injury of left foot, initial encounter; G89.29 Other chronic pain; R07.9 Chest pain, unspecified; M54.9 Dorsalgia, unspecified; N18.3 Chronic kidney disease, stage 3 (moderate); F32.9 Major depressive disorder, single episode, unspecified; D50.9 Iron deficiency anemia, unspecified; J44.9 Chronic obstructive pulmonary disease, unspecified; E86.1 Hypovolemia; I48.91 Unspecified atrial fibrillation; R19.7 Diarrhea, unspecified; E11.69 Type 2 diabetes mellitus with other specified complication; Z88.0 Allergy status to penicillin; Z91.013 Allergy to seafood; Z98.42 Cataract extraction status, left eye; Z98.41 Cataract extraction status, right eye; Z82.49 Family history of ischemic heart disease and other diseases of the circulatory system; Z83.3 Family history of diabetes mellitus; Z68.36 Body mass index [BMI] 36.0-36.9, adult; Z79.4 Long term (current) use of insulin; Z79.82 Long term (current) use of aspirin
CPT/HCPCS: 36415; 71045; 80048; 80053; 80061; 80162; 81003; 81015; 82607; 82728; 82746; 82803; 83036; 83540; 83550; 83605; 83735; 84443; 84484; 85025; 85610; 85730; 87040; 87086; 87641; 93005; 94640; 94660; 99284; A9270-GY; G0378; J1644

== ENCOUNTER 2019-02-06 14:12 | Inpatient (IN) | payer MEDICARE, MEDICAID ==
[2019-02-06] MEDS ORDERED: Vancomycin(*) 1,750 MG in NS 0.9% 250 ML* 250 ML IVPB ONE (14:59)
[2019-02-06] MEDS ORDERED: Vancomycin(*) 1,750 MG in NS 0.9% 500 ML* 500 ML IVPB STA (15:07)
[2019-02-06 15:24] LABS: Activated Partial Thrombo Time 28.8 seconds (26.0-36.3); INR 1.1 (0.82-1.09)
[2019-02-06 15:30] LABS: Hematocrit 28 % (42-52); Hemoglobin 8.6 g/dL (14.0-18.0); Mean Corpuscular HGB Conc 31 g/dL (31-36); Mean Corpuscular Hemoglobin 23 pg (27-31); Mean Corpuscular Volume 74 fL (80-94); Mean Platelet Volume 7.6 fL (7.4-10.4); Platelet Count 338 10^3/uL (150-450); Red Blood Count 3.75 10^6 /uL (4.18-5.48); Red Cell Distribution Width 17 % (10.5-15); White Blood Count 17.3 10^3/uL (3.5-10.8)
[2019-02-06 15:31] LABS: Albumin 3.3 g/dL (3.2-5.2); Albumin/Globulin Ratio 0.7 (1-3); C Reactive Protein 129.72 mg/L (<8.01); EGFR African American 42.5 (>60); EGFR Non-African American 35.1 (>60); Globulin 4.8 g/dL (2-4); Potassium 4.2 mmol/L (3.5-5.0); Total Bilirubin 0.3 mg/dL (0.2-1.0); Total Protein 8.1 g/dL (6.4-8.9)
[2019-02-06 15:32] LABS: ABS Eosinophils 0.8 10^3/ul (0-0.6); ABS Lymphocytes 1.8 10^3/ul (1.0-4.8); ABS Monocytes 0.7 10^3/ul (0-0.8); ABS Neutrophils 13.9 10^3/ul (1.5-7.7); Eosinophil % 4.7 %; Lymphocyte % 10.6 %
[2019-02-06] MEDS ORDERED: NS 0.9% 1000 ML** 1,000 ML IV SCH (17:00)
[2019-02-06] MEDS ORDERED: LORazepam TAB(*) 0.5 MG PO PRN (17:30)
[2019-02-06] MEDS ORDERED: Albuterol/Ipratropium NEB.SOL* Albuterol 2.5 MG/Ipratropium 0.5 MG 3 ML INH PRN (17:30)
[2019-02-06] MEDS ORDERED: Albuterol HFA INHALER* 8 gm MDI INH PRN (17:30)
[2019-02-06] MEDS ORDERED: Dextrose 50% Syringe 50 ML* 25 GM/50 ML SYRINGE IV PUSH PRN (17:56)
[2019-02-06] MEDS ORDERED: Vancomycin per Pharmacy* NOTE FOLLOW UP SCH (18:00)
[2019-02-06] MEDS: Mometasone/Formoter 100/5 MDI INH SCH (20:05)
[2019-02-06] MEDS: Insulin GLARGINE(*) 1 UNITS UNIT SUBCUT SCH (21:01)
[2019-02-06] MEDS: Metoprolol Tartrate TAB* 50 mg PO SCH (21:02)
[2019-02-06] MEDS: Ferrous Sulfate TAB* 325 MG PO SCH (21:02)
[2019-02-06] MEDS: Tamsulosin CAP* 0.4 MG PO SCH (21:02)
[2019-02-06] MEDS: Heparin VIAL(*) 5000 UNITS/ML VIAL (FIVE THOUSAND) SUBCUT SCH (21:03)
[2019-02-06] MEDS: Cefepime 1 GM in Dextrose(*) 1 GM/50 ML BAG IV SCH (21:07)
[2019-02-06] MEDS: metroNIDAZOLE IV 500 MG/100ML* 500 MG/100 ML BAG IVPB SCH (21:50)
--- NOTE | 2019-02-06 22:42 | HP ---
CC: Dr. Fisher* HISTORY AND PHYSICAL: DATE OF ADMISSION: 02/06/19 PROVIDER: Breonna Arnold NP PRIMARY CARE PROVIDER: Dr. Fisher. ATTENDING PHYSICIAN WHILE IN THE HOSPITAL: Dr. Betzaida Martinez* (dictated by Breonna Arnold NP). CHIEF COMPLAINT: Left heel pain. HISTORY OF PRESENT ILLNESS: Mr. Thapa is a 63-year-old male with a past medical history significant for diabetes; hypertension; history of atrial fibrillation, currently in sinus rhythm; chronic respiratory failure, requiring 1 L of oxygen; COPD; obesity hypoventilation syndrome; iron deficiency anemia; chronic kidney disease; history of osteomyelitis; chronic back pain; and depression, who presented to the emergency room from the wound clinic with increased pain and redness to the left heel. Per the patient, the wound clinic measured his left heel ulcer today which had increased in size and the patient has developed increased pain and tenderness along with surrounding redness from the heel ulcer, so he was sent to the emergency room for further evaluation. The patient reports that he developed this heel ulcer in October and since then has been following with the wound clinic. The ulcer had poor healing and is progressively getting bigger. The patient reports that he has tenderness and redness in the left heel today and was seen in Wound Care and was sent to the emergency room for further evaluation. He denies any fever or chills. He denies any chest pain or shortness of breath, cough or hemoptysis. He denies any nausea, vomiting, diarrhea, abdominal pain, hematuria, dysuria, focal weakness, or sensory loss. Denies any visual complaints, dysphagia, arthralgias , or myalgias. He does have an open heel. He does complain of left heel ulcer. Due to the increased pain and redness in his left heel, we were asked to see and evaluate him for admission. PAST MEDICAL HISTORY: 1. Diabetes. 2. Hypertension. 3. History of atrial fibrillation. 4. Chronic respiratory failure requiring 1 L of oxygen. 5. COPD. 6. Obesity. 7. Hypoventilation syndrome. 8. Iron deficiency anemia. 9. Chronic kidney disease, stage 3. 10. Osteomyelitis. 11. Chronic back pain. 12. Depression. PAST SURGICAL HISTORY: None. HOME MEDICATIONS: Include: 1. Ferrous sulfate 325 mg p.o. t.i.d. 2. Flomax 0.4 mg p.o. at bedtime. 3. Potassium chloride 10 mEq p.o. daily. 4. Metoprolol tartrate 50 mg p.o. b.i.d. 5. Lorazepam 0.5 mg p.o. q.8 hours p.r.n. 6. Symbicort 1 puff b.i.d. 80/4.5. 7. DuoNeb 1 nebulizer inhaled q.4 hours p.r.n. 8. Ventolin 2 puffs inhaled q.6 hours p.r.n. 9. Vitamin B12 1000 mcg p.o. daily. 10. Aspirin 81 mg p.o. daily. 11. Lantus 20 units subcu b.i.d. 12. Digoxin 0.125 mg p.o. daily. 13. Metformin 1000 mg p.o. daily. ALLERGIES: PENICILLIN and SHELL FISH. FAMILY HISTORY: Mother with a history of a CVA. Father with a history of an ND. Father with a history of diabetes. No reported history of cancer. SOCIAL HISTORY: The patient denies any tobacco, alcohol, or illicit drug use. He lives at [facility]. He uses a wheelchair for mobility. Surrogate decision maker; he does not have a surrogate decision maker. He is a full code. REVIEW OF SYSTEMS: A 14-point review of systems was completed. All pertinent positives are mentioned in the HPI, otherwise were negative. PHYSICAL EXAMINATION GENERAL: At this time, Mr. Thapa is a 63-year-old male who is resting comfortably on the stretcher in the emergency room. He does not appear in any acute distress. VITAL SIGNS: Temperature was 98.8, pulse was 89, respirations 18, O2 saturation 97%, and blood pressure 131/63. HEENT: Head is atraumatic and normocephalic. Eyes: EOMs are intact. Sclerae anicteric and not pale. Oral mucous appear to be moist. NECK: Supple. LUNGS: Clear to auscultation bilaterally. No wheezes, rales, or rhonchi. CARDIAC: S1, S2. Regular rate and rhythm. No murmurs, rubs, or gallops. ABDOMEN: Obese, soft, and nontender. Bowel sounds are present x4. EXTREMITIES: Pedal pulses are +1 bilaterally. He does have a large necrotic area noted to his left heel with surrounding erythema, tender to touch. There is no clubbing or cyanosis. NEUROLOGIC: He is awake, alert, and oriented x3. Speech is clear. Thought process is intact. There is no gross focal deficit. SKIN: He has a large necrotic area noted to his left heel with surrounding erythema noted on the foot and heel area. DIAGNOSTIC STUDIES/LAB DATA: WBCs are 17.3, RBCs 3.75, hemoglobin 8.6, hematocrit was 28, platelet count 338. INR 1.10. Sodium 136, potassium 4.2, chloride 98, carbon-dioxide was 32, anion gap was 6, BUN was 27, creatinine 1.93 , glucose was 190, hemoglobin A1c was 8.7, lactic acid was 2.3, calcium 9.0. ASTs were 6, ALTs were 5, alkaline phosphatase 65. C-reactive protein 129.72. He had an x-ray of his left foot. Radiologist Impression: Stable erosive changes of the 5th MTP joint, osteopenia. Plain film findings of osteomyelitis are relatively late findings. If there is persistent clinical concern for osteomyelitis, recommend correlation. We will follow up imaging, 3 phase bone scan, white blood cell scan, or an MRI of the affected region. MRI is currently pending. Blood cultures are pending. ASSESSMENT AND PLAN: Mr. Thapa is a 63-year-old male with a past medical history significant for diabetes; hypertension; history of atrial fibrillation; chronic respiratory failure, on 1 L of oxygen; COPD; obesity hypoventilation syndrome; iron deficiency anemia; chronic kidney disease; history of osteomyelitis; chronic back pain; and depression, who presented to the emergency room from [facility] with worsening left heel ulcer and cellulitis. He will be admitted inpatient for: 1. Cellulitis. I suspect this is related to his left heel ulcer. He will be placed on cefepime, Flagyl, and vancomycin. I will get an MRI of the left foot. I have consulted orthopedics Dr. Iraheta, will evaluate the patient tomorrow. Dr. Iraheta has also recommended to get an ankle brachial index which has been ordered. This ulcer is related to diabetes, within the diagnosis is also the possibility of osteomyelitis given the fact the patient has had this heel x3.5 months with no improvement in healing. 2. Diabetes. The patient will continue on Lantus 20 units subcu b.i.d. I will place him on Lispro sliding scale. We will hold his metformin. Fingerstick ac and HS. 3. Hypertension. We will continue on metoprolol 50 mg p.o. b.i.d. 4. History of atrial fibrillation. The patient will continue on metoprolol 50 mg p.o. b.i.d. 5. Chronic obstructive pulmonary disease. The patient will continue on Dulera inhaler. 6. Iron-deficiency anemia. The patient will continue on ferrous sulfate as previously prescribed as well as vitamin B12. 7. Chronic kidney disease. We will dose his medications based on his renal function and continue to monitor his BMP. We will avoid nephrotoxic medications. 8. Diet. The patient can have a consistent carb diet. 9. Code status. He is a full code. 10. DVT prophylaxis. I will place him on heparin subcu. 11. Disposition. The patient will be placed inpatient. TIME SPENT: Time spent on this admission was approximately 60 minutes, greater than half that time was spent at the bedside reviewing the events leading thus far to this hospitalization, performing my physical exam, and reviewing my plan of care. I have discussed with my attending Dr. Betzaida Martinez. She is in agreement with my plan. BREONNA ARNOLD, KEYSHAWN [id number]/[facility] #: [id number] TITUS
[2019-02-07] MEDS ORDERED: Vancomycin(*) 1,000 MG in NS 0.9% 250 ML* 250 ML IVPB SCH (03:00)
[2019-02-07] MEDS: Insulin GLARGINE(*) 1 UNITS UNIT SUBCUT SCH ×2 (05:26→18:17)
[2019-02-07] MEDS: Heparin VIAL(*) 5000 UNITS/ML VIAL (FIVE THOUSAND) SUBCUT SCH ×3 (05:26→21:03)
[2019-02-07 05:48] LABS: Urine Appearance Cloudy; Urine Bacteria Absent (Absent); Urine Bilirubin Negative (Negative); Urine Blood 1+ (Negative); Urine Color Yellow; Urine Glucose 1+(50 mg/dL) (Negative); Urine Ketones Negative (Negative); Urine Nitrite Negative (Negative); Urine Protein 2+(100 mg/dL) (Negative); Urine Red Blood Cell 1+(3-5/hpf) (Absent); Urine Specific Gravity 1.011 (1.010-1.030); Urine Urobilinogen Negative (Negative); Urine White Blood Cell Trace(0-5/hpf) (Absent)
[2019-02-07 05:50] LABS: BUN/Creatinine Ratio 13.8 (8-20); Calcium 8.2 mg/dL (8.6-10.3); EGFR African American 41.7 (>60); EGFR Non-African American 34.5 (>60); Potassium 3.9 mmol/L (3.5-5.0)
[2019-02-07 05:56] LABS: ABS Basophils 0.1 10^3/ul (0-0.2); ABS Eosinophils 0.8 10^3/ul (0-0.6); ABS Lymphocytes 1.8 10^3/ul (1.0-4.8); ABS Monocytes 0.6 10^3/ul (0-0.8); Eosinophil % 5.9 %; Hematocrit 24 % (42-52); Hemoglobin 7.8 g/dL (14.0-18.0); Lymphocyte % 13.7 %; Mean Corpuscular HGB Conc 32 g/dL (31-36); Mean Corpuscular Hemoglobin 24 pg (27-31); Mean Corpuscular Volume 74 fL (80-94); Mean Platelet Volume 7.5 fL (7.4-10.4); Platelet Count 295 10^3/uL (150-450); Red Cell Distribution Width 17 % (10.5-15); White Blood Count 13.3 10^3/uL (3.5-10.8)
[2019-02-07] MEDS: Cefepime 1 GM in Dextrose(*) 1 GM/50 ML BAG IV SCH (05:59)
--- NOTE | 2019-02-07 07:08 | ED ---
Skin Complaint - HPI Summary HPI Summary: Patient is a 63-year-old male with a PMH of PVD, PhD, osteomyelitis, diabetes and hypertension presenting to the ED from the wound care clinic today. Per Lizabeth at wound care, he has been endorsing increased pain, erythema and drainage from the left heel. Left heel has been treated since the beginning of the year, however has recently worsened. The ulcer to the heel has now eschar and draining and is also increased in size since his last appointment. He has never had surgeries for his ulcers and osteomyelitis. He denies any other symptoms including SOB, CP, cough, urinary symptoms, back pain, fevers, sweats, chills. He is endorsing an increase of pain to this area as well, worse with palpation and better with rest. He arrives with the heel wrapped. - History of Current Complaint Chief Complaint: EDExtremityLower Time Seen by Provider: 02/06/19 14:48 Stated Complaint: POSS CELLULITIS OF LEFT HEEL PER NURSE Hx Obtained From: Patient Onset/Duration: Started Weeks Ago Skin Exposure Onset/Duration: Weeks Ago Timing: Constant Onset Severity: Moderate Current Severity: Moderate Pain Intensity: 6 Pain Scale Used: 0-10 Numeric Skin Location: Discrete - left heel Aggravating Symptom(s): Nothing Alleviating Symptom(s): Nothing Associated Signs & Symptoms: Negative - Additional Pertinent History Primary Care Physician: [id number] Oxygen Devices Used Prior to Hospitalization: Nasal Cannula - Allergy/Home Medications Allergies/Adverse Reactions: Allergies Allergy/AdvReac Type Severity Reaction Status Date / Time shellfish derived Allergy Severe lips Verified 02/06/19 14:20 swell, itchy Penicillins Allergy Intermediate Rash Verified 02/06/19 14:20 PMH/Surg Hx/FS Hx/Imm Hx Previously Healthy: No Endocrine/Hematology History: Reports: Hx Anticoagulant Therapy - baby aspirin 1 /day, Hx Diabetes - DM II, Hx Anemia - TAKING IRON Cardiovascular History: Reports: Hx Congestive Heart Failure - Systolic HF, Hx Hypertension Denies: Hx Myocardial Infarction, Hx Pacemaker/ICD Respiratory History: Reports: Hx Chronic Obstructive Pulmonary Disease (COPD) - 2L O2, Hx Pulmonary Edema, Hx Sleep Apnea Denies: Hx Asthma GI History: Reports: Hx Hiatal Hernia - 25 years, Other GI Disorders - has some small gall stones- no issues History: Denies: Hx Dialysis, Hx Renal Disease Musculoskeletal History: Reports: Hx Arthritis - mild L4-L5, Other Musculoskeletal History - osteomyalgia bilateral foot Sensory History: Reports: Hx Cataracts Denies: Hx Contacts or Glasses, Hx Legally Blind, Hx Deafness, Hx Hearing Aid Opthamlomology History: Reports: Hx Cataracts Denies: Hx Contacts or Glasses, Hx Legally Blind Neurological History: Reports: Hx Nerve Disease - bilat neuropathy Denies: Hx Headaches Psychiatric History: Reports: Hx Depression Denies: Hx Anxiety, Hx Panic Disorder - Surgical History Surgery Procedure, Year, and Place: dental - teeth removed - sedated, cataracts Hx Anesthesia Reactions: No - Immunization History Date of Tetanus Vaccine: Unk Date of Influenza Vaccine: 07/2018 Hx Pertussis Vaccination: No Immunizations Up to Date: Yes Infectious Disease History: No Infectious Disease History: Denies: Traveled Outside the [place] in Last 30 Days - Family History Known Family History: Positive: Cardiac Disease, Hypertension, Diabetes - Social History Occupation: Unemployed, Disabled Lives: Alone Alcohol Use: None Hx Substance Use: No Substance Use Type: Reports: None Hx Tobacco Use: No Smoking Status (MU): Never Smoked Tobacco Amount Used/How Often: only smoked 2 years - never inhaled Have You Smoked in the Last Year: No Review of Systems Constitutional: Negative Negative: Fever, Chills, Fatigue, Skin Diaphoresis Negative: Palpitations, Chest Pain Negative: Shortness Of Breath, Cough Genitourinary: Negative Positive: no symptoms reported, see HPI Negative: Arthralgia, Myalgia Positive: Other - heel ulcer Neurological: Negative All Other Systems Reviewed And Are Negative: Yes Physical Exam Triage Information Reviewed: Yes Vital Signs On Initial Exam: Initial Vitals Temp Pulse Resp BP Pulse Ox 98.8 F 89 18 131/63 97 02/06/19 14:17 02/06/19 14:17 02/06/19 14:17 02/06/19 14:17 02/06/19 14:17 Vital Signs Reviewed: Yes Appearance: Positive: Well-Appearing, Well-Nourished Skin: Positive: Skin Color Reflects Adequate Perfusion, Other - heel ulcer with drainage Neck: Positive: Supple, Nontender, No Lymphadenopathy Respiratory/Lung Sounds: Positive: Clear to Auscultation, Breath Sounds Present Cardiovascular: Positive: RRR, Pulses are Symmetrical in both Upper and Lower Extremities Musculoskeletal: Positive: Normal, Strength/ROM Intact Neurological: Positive: Speech Normal Psychiatric: Positive: Normal, Affect/Mood Appropriate Diagnostics - Vital Signs Vital Signs Temp Pulse Resp BP Pulse Ox 02/06/19 14:17 98.8 F 89 18 131/63 97 - Laboratory Lab Results: Lab Results 02/06/19 02/06/19 02/06/19 Range/Units 15:00 15:00 15:00 WBC 17.3 H (3.5-10.8) 10^3/uL RBC 3.75 L (4.18-5.48) 10^6 /uL Hgb 8.6 L (14.0-18.0) g/dL Hct 28 L (42-52) % MCV 74 L (80-94) fL MCH 23 L (27-31) pg MCHC 31 (31-36) g/dL RDW 17 H (10.5-15) % Plt Count 338 (150-450) 10^3/uL MPV 7.6 (7.4-10.4) fL Neut % (Auto) 80.6 % Lymph % (Auto) 10.6 % [place] % (Auto) 3.8 % Eos % (Auto) 4.7 % Baso % (Auto) 0.3 % Absolute Neuts (auto) 13.9 H (1.5-7.7) 10^3/ul Absolute Lymphs (auto) 1.8 (1.0-4.8) 10^3/ul Absolute Monos (auto) 0.7 (0-0.8) 10^3/ul Absolute Eos (auto) 0.8 H (0-0.6) 10^3/ul Absolute Basos (auto) 0.0 (0-0.2) 10^3/ul Absolute Nucleated RBC 0.0 10^3/ul Nucleated RBC % 0.0 INR (Anticoag Therapy) (0.82-1.09) APTT (26.0-36.3) seconds Sodium 136 (135-145) mmol/L Potassium 4.2 (3.5-5.0) mmol/L Chloride 98 L (101-111) mmol/L Carbon Dioxide 32 (22-32) mmol/L Anion Gap 6 (2-11) mmol/L BUN 27 H (6-24) mg/dL Creatinine 1.93 H (0.67-1.17) mg/dL Est GFR ( Amer) 42.5 (>60) Est GFR (Non-Af Amer) 35.1 (>60) BUN/Creatinine Ratio 14.0 (8-20) Glucose 190 H (70-100) mg/dL Hemoglobin A1c (4.0-5.6) % Lactic Acid 2.3 H* (0.5-2.0) mmol/L Calcium 9.0 (8.6-10.3) mg/dL Total Bilirubin 0.30 (0.2-1.0) mg/dL AST 6 L (13-39) U/L ALT 5 L (7-52) U/L Alkaline Phosphatase 65 (34-104) U/L C-Reactive Protein 129.72 H (<8.01) mg/L Total Protein 8.1 (6.4-8.9) g/dL Albumin 3.3 (3.2-5.2) g/dL Globulin 4.8 H (2-4) g/dL Albumin/Globulin Ratio 0.7 L (1-3) 02/06/19 02/06/19 Range/Units 15:00 15:00 WBC (3.5-10.8) 10^3/uL RBC (4.18-5.48) 10^6 /uL Hgb (14.0-18.0) g/dL Hct (42-52) % MCV (80-94) fL MCH (27-31) pg MCHC (31-36) g/dL RDW (10.5-15) % Plt Count (150-450) 10^3/uL MPV (7.4-10.4) fL Neut % (Auto) % Lymph % (Auto) % [place] % (Auto) % Eos % (Auto) % Baso % (Auto) % Absolute Neuts (auto) (1.5-7.7) 10^3/ul Absolute Lymphs (auto) (1.0-4.8) 10^3/ul Absolute Monos (auto) (0-0.8) 10^3/ul Absolute Eos (auto) (0-0.6) 10^3/ul Absolute Basos (auto) (0-0.2) 10^3/ul Absolute Nucleated RBC 10^3/ul Nucleated RBC % INR (Anticoag Therapy) 1.10 H (0.82-1.09) APTT 28.8 (26.0-36.3) seconds Sodium (135-145) mmol/L Potassium (3.5-5.0) mmol/L Chloride (101-111) mmol/L Carbon Dioxide (22-32) mmol/L Anion Gap (2-11) mmol/L BUN (6-24) mg/dL Creatinine (0.67-1.17) mg/dL Est GFR ( Amer) (>60) Est GFR (Non-Af Amer) (>60) BUN/Creatinine Ratio (8-20) Glucose (70-100) mg/dL Hemoglobin A1c 8.7 H (4.0-5.6) % Lactic Acid (0.5-2.0) mmol/L Calcium (8.6-10.3) mg/dL Total Bilirubin (0.2-1.0) mg/dL AST (13-39) U/L ALT (7-52) U/L Alkaline Phosphatase (34-104) U/L C-Reactive Protein (<8.01) mg/L Total Protein (6.4-8.9) g/dL Albumin (3.2-5.2) g/dL Globulin (2-4) g/dL Albumin/Globulin Ratio (1-3) Result Diagrams: 02/07/19 05:19 02/07/19 05:19 Lab Statement: Any lab studies that have been ordered have been reviewed, and results considered in the medical decision making process. Course/Dx - Course Course Of Treatment: Patient has a large heel ulcer with eschar to the area which is spontaneously draining purulent discharge. Pain is worse with palpation. Pulses intact, however week. Doppler identified pulse at bedside. ANASTASIYA ordered. X-ray obtained and with concern for osteomyelitis, MRI ordered. Discussed case with Dr. Iraheta. Discussed case with Dr. Martinez who will admit patient to hospitalist service for further evaluation. He is started on vancomycin and likely will order other IV antibiotics after admission for broader coverage. - Diagnoses Provider Diagnoses: Diabetic foot ulcer, Osteomyelitis - Physician Notifications Discussed Care Of Patient With: Betzaida Martinez Instructed by Provider To: Admit As Inpatient Discharge - Sign-Out/Discharge Documenting (check all that apply): Patient Departure All imaging exams completed and their final reports reviewed: Yes Patient Received Moderate/Deep Sedation with Procedure: No - Discharge Plan Condition: Stable Disposition: [facility]ITT[facility] TO [facility] Disposition and Condition Condition: STABLE Disposition: Admitted to [facility]
[2019-02-07] MEDS: Insulin LISPRO* 1 UNITS UNIT SUBCUT SCH ×4 (07:41→21:02)
[2019-02-07] MEDS: Ferrous Sulfate TAB* 325 MG PO SCH ×3 (08:36→21:02)
[2019-02-07] MEDS: Aspirin EC TAB* 81 MG TAB.EC PO SCH (08:36)
[2019-02-07] MEDS: Cyanocobalamin TAB* 500 MCG PO SCH (08:36)
[2019-02-07] MEDS: Metoprolol Tartrate TAB* 50 mg PO SCH ×2 (08:36→21:02)
[2019-02-07] MEDS: Digoxin TAB* 0.125 MG PO SCH (08:36)
[2019-02-07] MEDS: metroNIDAZOLE IV 500 MG/100ML* 500 MG/100 ML BAG IVPB SCH ×2 (08:36→19:46)
[2019-02-07] MEDS: Potassium Chlor TAB* 10 MEQ TAB.ER PO SCH (08:36)
--- NOTE | 2019-02-07 09:19 | PN ---
Subjective Date of Service: 02/07/19 Interval History: VS: WNL Labs: leukocytosis- decreasing; H/H decreased slightly- will monitor; Cr elevated- at baseline Pt states that pain in LLE is slightly decreased, but states that he feels about the same as yesterday. He sees wound clinic doc regularly, who referred him to the ER. Also has plan with Dr. Steel for b/l arteriogram, which has to be rescheduled. Denies CP, SOB, fever, cough, abd pain, n/v/d/c. Objective Active Medications: Acetaminophen (Tylenol Tab*) 650 mg PO Q4H PRN Albuterol (Ventolin Hfa Inhaler*) 2 puff INH Q6HR PRN Albuterol/Ipratropium (Duoneb (Albuterol 2.5 Mg/Ipratropium 0.5 Mg)) 1 neb INH Q4H PRN Aspirin (Aspirin Ec Tab*) 81 mg PO DAILY [facility] Cyanocobalamin (Vitamin B12 Tab*) 1,000 mcg PO DAILY [facility] Dextrose (D50w Syringe 50 Ml*) 12.5 gm IV PUSH .FOR FS < 60 - SS PRN Digoxin (Lanoxin Tab*) 0.125 mg PO DAILY [facility] Ferrous Sulfate (Ferrous Sulfate Tab*) 325 mg PO TID [facility] Heparin Sodium (Porcine) (Heparin Vial(*)) 5,000 units SUBCUT Q8HR [facility] Cefepime HCl (Maxipime 1 Gm In Dextrose Duplex (*)) 1 gm in 50 mls @ 100 mls/ hr IV Q12H [facility] Metronidazole/Sodium Chloride (Flagyl 500 Mg Ivpb*) 500 mg in 100 mls @ 100 mls /hr IVPB Q12H [facility] Vancomycin HCl 1,000 mg/ (Sodium Chloride) 250 mls @ 166.667 mls/hr IVPB Q12H [facility] Insulin Glargine (Lantus(*)) 20 units SUBCUT Q12H [facility] Insulin Human Lispro (Humalog*) 0 units SUBCUT AC [facility]; Protocol Lorazepam (Ativan Tab(*)) 0.5 mg PO Q8HR PRN Metoprolol Tartrate (Lopressor Tab*) 50 mg PO BID [facility] Mometasone Furoate/Formoterol Fumar (Dulera 100/5 Mdi*) 2 puff INH BID [facility] Pharmacy Consult (Vancomycin Per Pharmacy*) 1 note FOLLOW UP .VANC PER PHARMACY [facility]; Protocol Pharmacy Profile Note (Vancomycin Trough Check) 1 note FOLLOW UP 1430 ONE Potassium Chloride (Klor Con Er Tab*) 10 meq PO DAILY [facility] Tamsulosin HCl (Flomax Cap*) 0.4 mg PO BEDTIME [facility] Vital Signs: Temp Pulse Resp BP Pulse Ox 99.2 F 73 20 127/56 97 02/07/19 07:21 02/07/19 07:21 02/07/19 07:21 02/07/19 07:21 02/07/19 07:21 Oxygen Devices in Use Now: Nasal Cannula Appearance: Pt is soft-spoken obese man who is laying in bed. he is in no acute distress. Eyes: No Scleral Icterus, PERRLA Ears/Nose/Mouth/Throat: NL Teeth, Lips, Gums, Clear Oropharnyx, Mucous Membranes Moist Neck: NL Appearance and Movements; NL JVP, Trachea Midline Respiratory: Symmetrical Chest Expansion and Respiratory Effort, - - Diminished breath sounds throughout Cardiovascular: NL Sounds; No Murmurs; No JVD, RRR, No Edema Abdominal: NL Sounds; No Tenderness; No Distention, No Hepatosplenomegaly, - - Umbilical hernia that is chronic, reducible Extremities: No Edema, No Clubbing, Cyanosis, - - Unable to palpate pedal pulses. L heel with black circular area appx 2x3 cm with surrounding area of erythema that has not extended beyond area of demarcation. Small amount of drainage just lateral to black area. Neurological: Alert and Oriented x 3 Result Diagrams: 02/07/19 05:19 02/07/19 05:19 Additional Lab and Data: Lab Results 02/06/19 02/06/19 02/06/19 Range/Units 15:00 15:00 15:00 WBC 17.3 H (3.5-10.8) 10^3/uL RBC 3.75 L (4.18-5.48) 10^6 /uL Hgb 8.6 L (14.0-18.0) g/dL Hct 28 L (42-52) % MCV 74 L (80-94) fL MCH 23 L (27-31) pg MCHC 31 (31-36) g/dL RDW 17 H (10.5-15) % Plt Count 338 (150-450) 10^3/uL MPV 7.6 (7.4-10.4) fL Neut % (Auto) 80.6 % Lymph % (Auto) 10.6 % [place] % (Auto) 3.8 % Eos % (Auto) 4.7 % Baso % (Auto) 0.3 % Absolute Neuts (auto) 13.9 H (1.5-7.7) 10^3/ul Absolute Lymphs (auto) 1.8 (1.0-4.8) 10^3/ul Absolute Monos (auto) 0.7 (0-0.8) 10^3/ul Absolute Eos (auto) 0.8 H (0-0.6) 10^3/ul Absolute Basos (auto) 0.0 (0-0.2) 10^3/ul Absolute Nucleated RBC 0.0 10^3/ul Nucleated RBC % 0.0 INR (Anticoag Therapy) (0.82-1.09) APTT (26.0-36.3) seconds Sodium 136 (135-145) mmol/L Potassium 4.2 (3.5-5.0) mmol/L Chloride 98 L (101-111) mmol/L Carbon Dioxide 32 (22-32) mmol/L Anion Gap 6 (2-11) mmol/L BUN 27 H (6-24) mg/dL Creatinine 1.93 H (0.67-1.17) mg/dL Est GFR ( Amer) 42.5 (>60) Est GFR (Non-Af Amer) 35.1 (>60) BUN/Creatinine Ratio 14.0 (8-20) Glucose 190 H (70-100) mg/dL Hemoglobin A1c (4.0-5.6) % Lactic Acid 2.3 H* (0.5-2.0) mmol/L Calcium 9.0 (8.6-10.3) mg/dL Total Bilirubin 0.30 (0.2-1.0) mg/dL AST 6 L (13-39) U/L ALT 5 L (7-52) U/L Alkaline Phosphatase 65 (34-104) U/L C-Reactive Protein 129.72 H (<8.01) mg/L Total Protein 8.1 (6.4-8.9) g/dL Albumin 3.3 (3.2-5.2) g/dL Globulin 4.8 H (2-4) g/dL Albumin/Globulin Ratio 0.7 L (1-3) 02/06/19 02/06/19 Range/Units 15:00 15:00 WBC (3.5-10.8) 10^3/uL RBC (4.18-5.48) 10^6 /uL Hgb (14.0-18.0) g/dL Hct (42-52) % MCV (80-94) fL MCH (27-31) pg MCHC (31-36) g/dL RDW (10.5-15) % Plt Count (150-450) 10^3/uL MPV (7.4-10.4) fL Neut % (Auto) % Lymph % (Auto) % [place] % (Auto) % Eos % (Auto) % Baso % (Auto) % Absolute Neuts (auto) (1.5-7.7) 10^3/ul Absolute Lymphs (auto) (1.0-4.8) 10^3/ul Absolute Monos (auto) (0-0.8) 10^3/ul Absolute Eos (auto) (0-0.6) 10^3/ul Absolute Basos (auto) (0-0.2) 10^3/ul Absolute Nucleated RBC 10^3/ul Nucleated RBC % INR (Anticoag Therapy) 1.10 H (0.82-1.09) APTT 28.8 (26.0-36.3) seconds Sodium (135-145) mmol/L Potassium (3.5-5.0) mmol/L Chloride (101-111) mmol/L Carbon Dioxide (22-32) mmol/L Anion Gap (2-11) mmol/L BUN (6-24) mg/dL Creatinine (0.67-1.17) mg/dL Est GFR ( Amer) (>60) Est GFR (Non-Af Amer) (>60) BUN/Creatinine Ratio (8-20) Glucose (70-100) mg/dL Hemoglobin A1c 8.7 H (4.0-5.6) % Lactic Acid (0.5-2.0) mmol/L Calcium (8.6-10.3) mg/dL Total Bilirubin (0.2-1.0) mg/dL AST (13-39) U/L ALT (7-52) U/L Alkaline Phosphatase (34-104) U/L C-Reactive Protein (<8.01) mg/L Total Protein (6.4-8.9) g/dL Albumin (3.2-5.2) g/dL Globulin (2-4) g/dL Albumin/Globulin Ratio (1-3) Microbiology and Other Data: Microbiology 02/06/19 14:55 Skin and Soft Tissue MRSA/MSSA (PCR - Final Foot Left Mrsa Negative S.aureus Positive Gram Stain - Final Assess/Plan/Problems-Billing Assessment: 63yom with PMHx DM, HTN, COPD, Fe deficiency, CKD 3, h/o osteomyelitis presents with cellulitis LLE, calcaneal area. - Patient Problems (1) Cellulitis and abscess of foot Comment: -No extension of erythema -MRI negative for osteomyelitis -ANASTASIYA abnormal, consistent with PAD. Pt is following with Dr. Steel for angiogram -MRSA negative- d/c vanco -Continue cefepime, flagyl -Ortho consult pending (2) HTN (hypertension) Comment: -Stable -Continue metoprolol (3) Diabetes mellitus, type 2 Comment: -A1c 8.7% -Continue Lantus, Lispro SS (4) Chronic kidney disease Comment: -Cr 1.96; baseline -Continue to monitor (5) Atrial fibrillation Comment: -Rate controlled -Continue dignoxin, metoprolol (6) COPD (chronic obstructive pulmonary disease) Comment: -Stable, not in exacerbation and at baseline oxygen requirements at 1L O2 -Continue Dulera (7) DVT prophylaxis Comment: -Heparin SQ (8) Full code status Comment: Status and Disposition: Inpatient. Discharge when stable.
[2019-02-07] MEDS: Mometasone/Formoter 100/5 MDI INH SCH ×2 (09:55→19:24)
[2019-02-07] MEDS: Cefepime ADVAN(*) 1 GM in NS 0.9% 50 ML* 50 ML IVPB SCH (18:19)
--- NOTE | 2019-02-07 19:10 | CONS ---
ORTHOPEDIC CONSULTATION REPORT: DATE OF CONSULT: 02/07/19 PROVIDER: Robert Gomez MD. CHIEF COMPLAINT: Left heal pain. HISTORY OF PRESENT ILLNESS: Mr. Thapa is a 63-year-old gentleman with a history of diabetes and peripheral vascular disease, who has had a longstanding history of bilateral foot and ankle wounds. He has previously been followed by wound care in the past. He reports that he was healed of all of his wounds in October and Wound Care allowed him to begin weightbearing as tolerated. He states that over the last couple of months, however, he has developed an ulcer to the posterior aspect of his left heel. He gradually developed pain in the heel and was unable to continue bearing weight on this. He was advised by the wound care center that he should go to the emergency room for hospitalization as redness was increasing. He states that he has been feeling well overall. He has had a significant amount of weight loss since the last admission to the hospital that we were consulted on and the peripheral edema in his legs has been improving as well. He denies any recent fevers or chills. He denies any swelling of the legs. He denies any nausea or vomiting. PAST MEDICAL HISTORY: Diabetes, hypertension, history of atrial fibrillation, chronic respiratory failure requiring 1 L oxygen, COPD, obesity hypoventilation syndrome, iron deficiency anemia, chronic kidney disease stage 3, osteomyelitis , chronic back pain, and depression. PAST SURGICAL HISTORY: None. HOME MEDICATIONS: Include: 1. Ferrous sulfate 325 mg p.o. t.i.d. 2. Flomax 0.5 mg p.o. q.h.s. 3. Potassium chloride 10 mEq p.o. daily. 4. Metoprolol tartrate 50 mg p.o. b.i.d. 5. Lorazepam 0.5 mg p.o. q.8 hours p.r.n. 6. Symbicort 1 puff b.i.d. 7. DuoNeb 1 nebulizer inhaled q.4 hours p.r.n. 8. Ventolin 2 puffs inhaled q.6 hours p.r.n. 9. Vitamin B12 at 1000 mcg p.o. daily. 10. Aspirin 81 mg p.o. daily. 11. Lantus 20 units subcu b.i.d. 12. Digoxin 0.125 mg p.o. daily. 13. Metformin 1000 mg p.o. daily. ALLERGIES: PENICILLIN and SHELLFISH. FAMILY HISTORY: Positive for a stroke in his mother. [place] in his father. Diabetes mellitus in his father. No family history of cancer. SOCIAL HISTORY: He lives at [facility]. He uses a wheelchair for normal mobility, although he is interested in regaining strength to be able to walk. He denies tobacco, alcoholic beverage, or illicit drug use. REVIEW OF SYSTEMS: A 14-point review of systems was completed. All systems were negative except as discussed in the HPI. PHYSICAL EXAM: The patient is 6 feet 2 inches, 267 pounds, blood pressure 120/ 49, pulse 66, respirations 20, temperature 99.3. General: He is a well- developed, well-nourished male, in no acute distress at rest. Lying in bed. HEENT: Normocephalic, atraumatic. His hearing and vision are grossly intact. Neck: His trachea is midline. Cardiovascular: No peripheral edema. Good perfusion to all of his digits. Respiratory: Breathing is unlabored. Full chest expansion bilaterally. Abdomen is soft, nondistended, and nontender. Extremities: Exam of left upper extremity, the patient has a 4 cm round ulceration to the posterior aspect of the calcaneus. There is mild surrounding erythema. There is no significant lower extremity edema. He is tender to palpation around the calcaneus. He has limited dorsiflexion and plantar flexion of the ankle secondary to pain. He is able to invert and patricio. He has good flexion and extension of his MTP joints. His sensation to light touch is intact. He has a 1+ dorsalis pedis pulse. IMAGING STUDIES: ANASTASIYA showed an abnormal ankle brachial index consistent with peripheral arterial disease, slightly decreased on the left side when compared to the prior study. The ANASTASIYA on the left was 0.57. MRI of the left foot showed soft tissue swelling present along the plantar aspect of the foot and a focal soft tissue ulcer present in the inferior posterior calcaneus. There is no bone marrow edema present and no evidence for osteomyelitis. IMPRESSION: Left foot ulcer with cellulitis. PLAN: The patient does have a significant ulcer on the heel, however, there is no osteomyelitis or abscess collection present. There is mild surrounding cellulitis, but no need for surgical intervention at this point. We recommend consultation with Dr. Steel, given his abnormal ABIs for further vascular workup to maximize circulation to improve healing. Recommend Betadine wet to dry dressings over the heel at this point and to continue IV antibiotics. Should the condition worsen or need any sort of surgical debridement, this could be done on 02/10/[address] Craig. We will continue to follow the patient while inhouse. Thank you for this consultation. EDWIGE WOO [id number]/[facility] #: [id number] [facility]STERJewel
[2019-02-07] MEDS: Acetaminophen TAB* 325 MG PO PRN (19:46)
[2019-02-07] MEDS: Tamsulosin CAP* 0.4 MG PO SCH (21:02)
[2019-02-08] MEDS: Insulin GLARGINE(*) 1 UNITS UNIT SUBCUT SCH ×2 (05:58→17:19)
[2019-02-08] MEDS: Cefepime ADVAN(*) 1 GM in NS 0.9% 50 ML* 50 ML IVPB SCH (05:58)
[2019-02-08] MEDS: Heparin VIAL(*) 5000 UNITS/ML VIAL (FIVE THOUSAND) SUBCUT SCH ×3 (05:59→21:09)
[2019-02-08] MEDS: Mometasone/Formoter 100/5 MDI INH SCH ×2 (07:11→20:13)
[2019-02-08] MEDS: Insulin LISPRO* 1 UNITS UNIT SUBCUT SCH ×4 (07:56→21:09)
[2019-02-08] MEDS: Cyanocobalamin TAB* 500 MCG PO SCH (07:57)
[2019-02-08] MEDS: Digoxin TAB* 0.125 MG PO SCH (07:57)
[2019-02-08] MEDS: Potassium Chlor TAB* 10 MEQ TAB.ER PO SCH (07:57)
[2019-02-08] MEDS: Metoprolol Tartrate TAB* 50 mg PO SCH ×2 (07:57→21:08)
[2019-02-08] MEDS: Aspirin EC TAB* 81 MG TAB.EC PO SCH (07:57)
[2019-02-08] MEDS: Ferrous Sulfate TAB* 325 MG PO SCH ×3 (07:57→21:08)
[2019-02-08] MEDS: metroNIDAZOLE IV 500 MG/100ML* 500 MG/100 ML BAG IVPB SCH ×3 (07:58→19:27)
[2019-02-08 08:38] LABS: ABS Eosinophils 0.6 10^3/ul (0-0.6); ABS Lymphocytes 1.7 10^3/ul (1.0-4.8); ABS Monocytes 0.5 10^3/ul (0-0.8); ABS Neutrophils 7.6 10^3/ul (1.5-7.7); Eosinophil % 6.1 %; Hematocrit 26 % (42-52); Hemoglobin 8.3 g/dL (14.0-18.0); Mean Corpuscular HGB Conc 31 g/dL (31-36); Mean Corpuscular Hemoglobin 24 pg (27-31); Mean Corpuscular Volume 75 fL (80-94); Mean Platelet Volume 7.3 fL (7.4-10.4); Platelet Count 326 10^3/uL (150-450); Red Blood Count 3.52 10^6 /uL (4.18-5.48); Red Cell Distribution Width 17 % (10.5-15); White Blood Count 10.5 10^3/uL (3.5-10.8)
[2019-02-08 09:03] LABS: BUN/Creatinine Ratio 14.4 (8-20); Calcium 8.4 mg/dL (8.6-10.3); EGFR African American 42.2 (>60); EGFR Non-African American 34.9 (>60); Potassium 3.8 mmol/L (3.5-5.0)
--- NOTE | 2019-02-08 13:02 | PN ---
Progress Note - Progress Note Date of Service: 02/08/19 SOAP: Subjective: Pt seen at bedside. States pain tolerable with just Tylenol. Denies CP, SOB. Vital Signs: Temp Pulse Resp BP Pulse Ox 97.5 F 67 18 138/57 98 02/08/19 07:23 02/08/19 07:23 02/08/19 07:41 02/08/19 07:23 02/08/19 07:23 Laboratory Last Values WBC 10.5 10^3/uL (3.5-10.8) 02/08/19 08:08 RBC 3.52 10^6 /uL (4.18-5.48) L 02/08/19 08:08 Hgb 8.3 g/dL (14.0-18.0) L 02/08/19 08:08 Hct 26 % (42-52) L 02/08/19 08:08 MCV 75 fL (80-94) L 02/08/19 08:08 MCH 24 pg (27-31) L 02/08/19 08:08 MCHC 31 g/dL (31-36) 02/08/19 08:08 RDW 17 % (10.5-15) H 02/08/19 08:08 Plt Count 326 10^3/uL (150-450) 02/08/19 08:08 MPV 7.3 fL (7.4-10.4) L 02/08/19 08:08 Neut % (Auto) 72.4 % 02/08/19 08:08 Lymph % (Auto) 16.0 % 02/08/19 08:08 [place] % (Auto) 5.0 % 02/08/19 08:08 Eos % (Auto) 6.1 % 02/08/19 08:08 Baso % (Auto) 0.5 % 02/08/19 08:08 Absolute Neuts (auto) 7.6 10^3/ul (1.5-7.7) 02/08/19 08:08 Absolute Lymphs (auto) 1.7 10^3/ul (1.0-4.8) 02/08/19 08:08 Absolute Monos (auto) 0.5 10^3/ul (0-0.8) 02/08/19 08:08 Absolute Eos (auto) 0.6 10^3/ul (0-0.6) 02/08/19 08:08 Absolute Basos (auto) 0.0 10^3/ul (0-0.2) 02/08/19 08:08 Absolute Nucleated RBC 0.0 10^3/ul 02/08/19 08:08 Nucleated RBC % 0.0 02/08/19 08:08 INR (Anticoag Therapy) 1.10 (0.82-1.09) H 02/06/19 15:00 APTT 28.8 seconds (26.0-36.3) 02/06/19 15:00 Sodium 138 mmol/L (135-145) 02/08/19 08:08 Potassium 3.8 mmol/L (3.5-5.0) 02/08/19 08:08 Chloride 101 mmol/L (101-111) 02/08/19 08:08 Carbon Dioxide 31 mmol/L (22-32) 02/08/19 08:08 Anion Gap 6 mmol/L (2-11) 02/08/19 08:08 BUN 28 mg/dL (6-24) H 02/08/19 08:08 Creatinine 1.94 mg/dL (0.67-1.17) H 02/08/19 08:08 Est GFR ( Amer) 42.2 (>60) 02/08/19 08:08 Est GFR (Non-Af Amer) 34.9 (>60) 02/08/19 08:08 BUN/Creatinine Ratio 14.4 (8-20) 02/08/19 08:08 Glucose 123 mg/dL (70-100) H 02/08/19 08:08 POC Glucose (mg/dL) 137 mg/dL (70-100) H 02/08/19 12:03 Hemoglobin A1c 8.7 % (4.0-5.6) H 02/06/19 15:00 Lactic Acid 1.3 mmol/L (0.5-2.0) 02/06/19 22:42 Calcium 8.4 mg/dL (8.6-10.3) L 02/08/19 08:08 Total Bilirubin 0.30 mg/dL (0.2-1.0) 02/06/19 15:00 AST 6 U/L (13-39) L 02/06/19 15:00 ALT 5 U/L (7-52) L 02/06/19 15:00 Alkaline Phosphatase 65 U/L (34-104) 02/06/19 15:00 C-Reactive Protein 129.72 mg/L (<8.01) H 02/06/19 15:00 Total Protein 8.1 g/dL (6.4-8.9) 02/06/19 15:00 Albumin 3.3 g/dL (3.2-5.2) 02/06/19 15:00 Globulin 4.8 g/dL (2-4) H 02/06/19 15:00 Albumin/Globulin Ratio 0.7 (1-3) L 02/06/19 15:00 Urine Color Yellow 02/07/19 05:30 Urine Appearance Cloudy 02/07/19 05:30 Urine pH 5.0 (5-9) 02/07/19 05:30 Ur Specific [place] 1.011 (1.010-1.030) 02/07/19 05:30 Urine Protein 2+(100 mg/dl) (Negative) A 02/07/19 05:30 Urine Ketones Negative (Negative) 02/07/19 05:30 Urine Blood 1+ (Negative) A 02/07/19 05:30 Urine Nitrate Negative (Negative) 02/07/19 05:30 Urine Bilirubin Negative (Negative) 02/07/19 05:30 Urine Urobilinogen Negative (Negative) 02/07/19 05:30 Ur Leukocyte Esterase Negative (Negative) 02/07/19 05:30 Urine WBC (Auto) Trace(0-5/hpf) (Absent) 02/07/19 05:30 Urine RBC (Auto) 1+(3-5/hpf) (Absent) A 02/07/19 05:30 Urine Bacteria Absent (Absent) 02/07/19 05:30 Hyaline Casts Present (Absent) A 02/07/19 05:30 Urine Glucose 1+(50 mg/dl) (Negative) A 02/07/19 05:30 Objective: A&O x3, NAD, Dressing clean and dry, Dressing changed. Wound was clean without drainage. Less Erythema around the wound. Calves soft and nontender, No edema, NVI distally. Assessment: Left foot ulcer Plan: Continue IV abx Awaiting vascular workup Continue betadine wet to dry dressing changes Ortho will follow
[2019-02-08] MEDS: Acetaminophen TAB* 325 MG PO PRN (13:46)
[2019-02-08] MEDS ORDERED: Vancomycin Trough Check NOTE FOLLOW UP ONE (14:30)
--- NOTE | 2019-02-08 15:16 | PN ---
Subjective Date of Service: 02/08/19 Interval History: Denies any pain in his legs.Denies any complaints Objective Active Medications: Acetaminophen (Tylenol Tab*) 650 mg PO Q4H PRN PRN Reason: FEVER/PAIN Last Admin: 02/08/19 13:46 Dose: 650 mg Albuterol (Ventolin Hfa Inhaler*) 2 puff INH Q6HR PRN PRN Reason: SOB/WHEEZING Albuterol/Ipratropium (Duoneb (Albuterol 2.5 Mg/Ipratropium 0.5 Mg)) 1 neb INH Q4H PRN PRN Reason: SOB/WHEEZING Aspirin (Aspirin Ec Tab*) 81 mg PO DAILY [facility] Last Admin: 02/08/19 07:57 Dose: 81 mg Cyanocobalamin (Vitamin B12 Tab*) 1,000 mcg PO DAILY [facility] Last Admin: 02/08/19 07:57 Dose: 1,000 mcg Dextrose (D50w Syringe 50 Ml*) 12.5 gm IV PUSH .FOR FS < 60 - SS PRN PRN Reason: FS < 60 Digoxin (Lanoxin Tab*) 0.125 mg PO DAILY [facility] Last Admin: 02/08/19 07:57 Dose: 0.125 mg Ferrous Sulfate (Ferrous Sulfate Tab*) 325 mg PO TID [facility] Last Admin: 02/08/19 13:42 Dose: 325 mg Heparin Sodium (Porcine) (Heparin Vial(*)) 5,000 units SUBCUT Q8HR [facility] Last Admin: 02/08/19 13:42 Dose: 5,000 units Metronidazole/Sodium Chloride (Flagyl 500 Mg Ivpb*) 500 mg in 100 mls @ 100 mls /hr IVPB Q12HR@0800,2000 [facility] Last Admin: 02/08/19 08:02 Dose: 100 mls/hr Cefepime HCl (Maxipime 1 Gm In Dextrose Duplex (*)) 1 gm in 50 mls @ 100 mls/ hr IV Q12H [facility] Insulin Glargine (Lantus(*)) 20 units SUBCUT Q12H [facility] Last Admin: 02/08/19 05:58 Dose: 20 units Insulin Human Lispro (Humalog*) 0 units SUBCUT ACHS [facility]; Protocol Last Admin: 02/08/19 12:11 Dose: 2 units Lorazepam (Ativan Tab(*)) 0.5 mg PO Q8HR PRN PRN Reason: ANXIETY Metoprolol Tartrate (Lopressor Tab*) 50 mg PO BID [facility] Last Admin: 02/08/19 07:57 Dose: 50 mg Mometasone Furoate/Formoterol Fumar (Dulera 100/5 Mdi*) 2 puff INH BID [facility] Last Admin: 02/08/19 07:11 Dose: 2 puff Potassium Chloride (Klor Con Er Tab*) 10 meq PO DAILY [facility] Last Admin: 02/08/19 07:57 Dose: 10 meq Tamsulosin HCl (Flomax Cap*) 0.4 mg PO BEDTIME [facility] Last Admin: 02/07/19 21:02 Dose: 0.4 mg Vital Signs - 8 hr 02/08/19 02/08/19 07:23 07:41 Temperature 97.5 F Pulse Rate 67 Respiratory 16 18 Rate Blood Pressure 138/57 (mmHg) O2 Sat by Pulse 98 Oximetry Oxygen Devices in Use Now: Nasal Cannula Eyes: No Scleral Icterus Ears/Nose/Mouth/Throat: NL Teeth, Lips, Gums Neck: NL Appearance and Movements; NL JVP Respiratory: Symmetrical Chest Expansion and Respiratory Effort, Clear to Auscultation Cardiovascular: NL Sounds; No Murmurs; No JVD Abdominal: NL Sounds; No Tenderness; No Distention Extremities: - - Dressing L heel intact.Unable to palpate pedal pulses Neurological: Alert and Oriented x 3 Result Diagrams: 02/08/19 08:08 02/08/19 08:08 Additional Lab and Data: Lab Results 02/06/19 02/06/19 02/06/19 Range/Units 15:00 15:00 15:00 WBC 17.3 H (3.5-10.8) 10^3/uL RBC 3.75 L (4.18-5.48) 10^6 /uL Hgb 8.6 L (14.0-18.0) g/dL Hct 28 L (42-52) % MCV 74 L (80-94) fL MCH 23 L (27-31) pg MCHC 31 (31-36) g/dL RDW 17 H (10.5-15) % Plt Count 338 (150-450) 10^3/uL MPV 7.6 (7.4-10.4) fL Neut % (Auto) 80.6 % Lymph % (Auto) 10.6 % [place] % (Auto) 3.8 % Eos % (Auto) 4.7 % Baso % (Auto) 0.3 % Absolute Neuts (auto) 13.9 H (1.5-7.7) 10^3/ul Absolute Lymphs (auto) 1.8 (1.0-4.8) 10^3/ul Absolute Monos (auto) 0.7 (0-0.8) 10^3/ul Absolute Eos (auto) 0.8 H (0-0.6) 10^3/ul Absolute Basos (auto) 0.0 (0-0.2) 10^3/ul Absolute Nucleated RBC 0.0 10^3/ul Nucleated RBC % 0.0 INR (Anticoag Therapy) (0.82-1.09) APTT (26.0-36.3) seconds Sodium 136 (135-145) mmol/L Potassium 4.2 (3.5-5.0) mmol/L Chloride 98 L (101-111) mmol/L Carbon Dioxide 32 (22-32) mmol/L Anion Gap 6 (2-11) mmol/L BUN 27 H (6-24) mg/dL Creatinine 1.93 H (0.67-1.17) mg/dL Est GFR ( Amer) 42.5 (>60) Est GFR (Non-Af Amer) 35.1 (>60) BUN/Creatinine Ratio 14.0 (8-20) Glucose 190 H (70-100) mg/dL Hemoglobin A1c (4.0-5.6) % Lactic Acid 2.3 H* (0.5-2.0) mmol/L Calcium 9.0 (8.6-10.3) mg/dL Total Bilirubin 0.30 (0.2-1.0) mg/dL AST 6 L (13-39) U/L ALT 5 L (7-52) U/L Alkaline Phosphatase 65 (34-104) U/L C-Reactive Protein 129.72 H (<8.01) mg/L Total Protein 8.1 (6.4-8.9) g/dL Albumin 3.3 (3.2-5.2) g/dL Globulin 4.8 H (2-4) g/dL Albumin/Globulin Ratio 0.7 L (1-3) 02/06/19 02/06/19 Range/Units 15:00 15:00 WBC (3.5-10.8) 10^3/uL RBC (4.18-5.48) 10^6 /uL Hgb (14.0-18.0) g/dL Hct (42-52) % MCV (80-94) fL MCH (27-31) pg MCHC (31-36) g/dL RDW (10.5-15) % Plt Count (150-450) 10^3/uL MPV (7.4-10.4) fL Neut % (Auto) % Lymph % (Auto) % [place] % (Auto) % Eos % (Auto) % Baso % (Auto) % Absolute Neuts (auto) (1.5-7.7) 10^3/ul Absolute Lymphs (auto) (1.0-4.8) 10^3/ul Absolute Monos (auto) (0-0.8) 10^3/ul Absolute Eos (auto) (0-0.6) 10^3/ul Absolute Basos (auto) (0-0.2) 10^3/ul Absolute Nucleated RBC 10^3/ul Nucleated RBC % INR (Anticoag Therapy) 1.10 H (0.82-1.09) APTT 28.8 (26.0-36.3) seconds Sodium (135-145) mmol/L Potassium (3.5-5.0) mmol/L Chloride (101-111) mmol/L Carbon Dioxide (22-32) mmol/L Anion Gap (2-11) mmol/L BUN (6-24) mg/dL Creatinine (0.67-1.17) mg/dL Est GFR ( Amer) (>60) Est GFR (Non-Af Amer) (>60) BUN/Creatinine Ratio (8-20) Glucose (70-100) mg/dL Hemoglobin A1c 8.7 H (4.0-5.6) % Lactic Acid (0.5-2.0) mmol/L Calcium (8.6-10.3) mg/dL Total Bilirubin (0.2-1.0) mg/dL AST (13-39) U/L ALT (7-52) U/L Alkaline Phosphatase (34-104) U/L C-Reactive Protein (<8.01) mg/L Total Protein (6.4-8.9) g/dL Albumin (3.2-5.2) g/dL Globulin (2-4) g/dL Albumin/Globulin Ratio (1-3) Microbiology and Other Data: Microbiology 02/06/19 14:55 Skin and Soft Tissue MRSA/MSSA (PCR - Final Foot Left Mrsa Negative S.aureus Positive Gram Stain - Final Assess/Plan/Problems-Billing Assessment: 63yom with PMHx DM, HTN, COPD, Fe deficiency, CKD 3, h/o osteomyelitis presents with cellulitis LLE, calcaneal area. - Patient Problems (1) Cellulitis and abscess of foot Current Visit: Yes Status: Acute Code(s): L03.119 - CELLULITIS OF UNSPECIFIED PART OF LIMB; L02.619 - CUTANEOUS ABSCESS OF UNSPECIFIED FOOT SNOMED Code(s): 871578768 Comment: -No extension of erythema -MRI negative for osteomyelitis -ANASTASIYA abnormal, consistent with PAD. Pt is following with Dr. Steel for angiogram -MRSA negative- d/c vanco -Continue cefepime, flagyl -Appreciate ortho input (2) Chronic kidney disease Current Visit: Yes Status: Acute Code(s): N18.9 - CHRONIC KIDNEY DISEASE, UNSPECIFIED SNOMED Code(s): 367455466 Comment: -Cr 1.96; baseline -Continue to monitor (3) Atrial fibrillation Current Visit: No Status: Acute Code(s): I48.91 - UNSPECIFIED ATRIAL FIBRILLATION SNOMED Code(s): 17757899 Comment: -Rate controlled -Continue dignoxin, metoprolol (4) COPD (chronic obstructive pulmonary disease) Current Visit: No Status: Acute Code(s): J44.9 - CHRONIC OBSTRUCTIVE PULMONARY DISEASE, UNSPECIFIED SNOMED Code(s): 83767615 Comment: -Stable, not in exacerbation and at baseline oxygen requirements at 1L O2 -Continue Dulera (5) DVT prophylaxis Current Visit: No Status: Acute Code(s): RQN1977 - SNOMED Code(s): 556747003 Comment: -Heparin SQ (6) Diabetes mellitus, type 2 Current Visit: No Status: Acute Comment: -A1c 8.7% -Continue Lantus, Lispro SS Status and Disposition: Inpatient. PT/OT.Discharge planning
[2019-02-08] MEDS: Cefepime 1 GM in Dextrose(*) 1 GM/50 ML BAG IV SCH (18:22)
[2019-02-08] MEDS: Tamsulosin CAP* 0.4 MG PO SCH (21:08)
[2019-02-09] MEDS: Acetaminophen TAB* 325 MG PO PRN ×2 (06:05→17:33)
[2019-02-09] MEDS: Cefepime 1 GM in Dextrose(*) 1 GM/50 ML BAG IV SCH ×2 (06:06→17:55)
[2019-02-09] MEDS: Heparin VIAL(*) 5000 UNITS/ML VIAL (FIVE THOUSAND) SUBCUT SCH ×3 (06:08→22:35)
[2019-02-09] MEDS: Insulin GLARGINE(*) 1 UNITS UNIT SUBCUT SCH ×2 (06:08→17:34)
[2019-02-09] MEDS: Mometasone/Formoter 100/5 MDI INH SCH ×2 (07:15→19:28)
[2019-02-09 08:33] LABS: BUN/Creatinine Ratio 15.4 (8-20); Calcium 8.4 mg/dL (8.6-10.3); Potassium 4.1 mmol/L (3.5-5.0)
[2019-02-09 08:41] LABS: ABS Basophils 0.1 10^3/ul (0-0.2); ABS Eosinophils 0.5 10^3/ul (0-0.6); ABS Lymphocytes 1.8 10^3/ul (1.0-4.8); ABS Monocytes 0.5 10^3/ul (0-0.8); ABS Neutrophils 8.3 10^3/ul (1.5-7.7); Eosinophil % 4.5 %; Hematocrit 24 % (42-52); Hemoglobin 7.7 g/dL (14.0-18.0); Mean Corpuscular HGB Conc 32 g/dL (31-36); Mean Corpuscular Hemoglobin 23 pg (27-31); Mean Corpuscular Volume 74 fL (80-94); Mean Platelet Volume 7.1 fL (7.4-10.4); Platelet Count 319 10^3/uL (150-450); Red Blood Count 3.31 10^6 /uL (4.18-5.48); Red Cell Distribution Width 16 % (10.5-15); White Blood Count 11.2 10^3/uL (3.5-10.8)
[2019-02-09] MEDS: Insulin LISPRO* 1 UNITS UNIT SUBCUT SCH ×4 (09:15→22:35)
[2019-02-09] MEDS: metroNIDAZOLE IV 500 MG/100ML* 500 MG/100 ML BAG IVPB SCH ×2 (09:15→20:24)
[2019-02-09] MEDS: Aspirin EC TAB* 81 MG TAB.EC PO SCH (09:16)
[2019-02-09] MEDS: Potassium Chlor TAB* 10 MEQ TAB.ER PO SCH (09:16)
[2019-02-09] MEDS: Metoprolol Tartrate TAB* 50 mg PO SCH ×2 (09:16→22:36)
[2019-02-09] MEDS: Digoxin TAB* 0.125 MG PO SCH (09:16)
[2019-02-09] MEDS: Ferrous Sulfate TAB* 325 MG PO SCH ×3 (09:16→22:36)
[2019-02-09] MEDS: Cyanocobalamin TAB* 500 MCG PO SCH (09:16)
--- NOTE | 2019-02-09 14:15 | PN ---
Subjective Date of Service: 02/09/19 Interval History: Pt denies any sob. No pain in the leg Objective Active Medications: Acetaminophen (Tylenol Tab*) 650 mg PO Q4H PRN PRN Reason: FEVER/PAIN Last Admin: 02/09/19 06:05 Dose: 650 mg Albuterol (Ventolin Hfa Inhaler*) 2 puff INH Q6HR PRN PRN Reason: SOB/WHEEZING Albuterol/Ipratropium (Duoneb (Albuterol 2.5 Mg/Ipratropium 0.5 Mg)) 1 neb INH Q4H PRN PRN Reason: SOB/WHEEZING Aspirin (Aspirin Ec Tab*) 81 mg PO DAILY [facility] Last Admin: 02/09/19 09:16 Dose: 81 mg Cyanocobalamin (Vitamin B12 Tab*) 1,000 mcg PO DAILY [facility] Last Admin: 02/09/19 09:16 Dose: 1,000 mcg Dextrose (D50w Syringe 50 Ml*) 12.5 gm IV PUSH .FOR FS < 60 - SS PRN PRN Reason: FS < 60 Digoxin (Lanoxin Tab*) 0.125 mg PO DAILY [facility] Last Admin: 02/09/19 09:16 Dose: 0.125 mg Ferrous Sulfate (Ferrous Sulfate Tab*) 325 mg PO TID [facility] Last Admin: 02/09/19 13:09 Dose: 325 mg Heparin Sodium (Porcine) (Heparin Vial(*)) 5,000 units SUBCUT Q8HR [facility] Last Admin: 02/09/19 13:09 Dose: 5,000 units Metronidazole/Sodium Chloride (Flagyl 500 Mg Ivpb*) 500 mg in 100 mls @ 100 mls /hr IVPB Q12HR@0800,2000 [facility] Last Admin: 02/09/19 09:15 Dose: 100 mls/hr Cefepime HCl (Maxipime 1 Gm In Dextrose Duplex (*)) 1 gm in 50 mls @ 100 mls/ hr IV Q12H [facility] Last Admin: 02/09/19 06:06 Dose: 100 mls/hr Insulin Glargine (Lantus(*)) 20 units SUBCUT Q12H [facility] Last Admin: 02/09/19 06:08 Dose: 20 units Insulin Human Lispro (Humalog*) 0 units SUBCUT [facility]; Protocol Last Admin: 02/09/19 13:09 Dose: 2 units Lorazepam (Ativan Tab(*)) 0.5 mg PO Q8HR PRN PRN Reason: ANXIETY Metoprolol Tartrate (Lopressor Tab*) 50 mg PO BID [facility] Last Admin: 02/09/19 09:16 Dose: 50 mg Mometasone Furoate/Formoterol Fumar (Dulera 100/5 Mdi*) 2 puff INH BID [facility] Last Admin: 02/09/19 07:15 Dose: 2 puff Potassium Chloride (Klor Con Er Tab*) 10 meq PO DAILY [facility] Last Admin: 02/09/19 09:16 Dose: 10 meq Tamsulosin HCl (Flomax Cap*) 0.4 mg PO BEDTIME [facility] Last Admin: 02/08/19 21:08 Dose: 0.4 mg Vital Signs - 8 hr 02/09/19 02/09/19 02/09/19 07:37 08:00 09:16 Temperature 98.2 F Pulse Rate 73 75 Respiratory 18 16 Rate Blood Pressure 144/61 (mmHg) O2 Sat by Pulse 98 Oximetry Oxygen Devices in Use Now: Nasal Cannula Eyes: No Scleral Icterus Neck: NL Appearance and Movements; NL JVP Respiratory: Symmetrical Chest Expansion and Respiratory Effort, Clear to Auscultation Cardiovascular: NL Sounds; No Murmurs; No JVD Extremities: No Edema, - - dressing intact Skin: No Rash or Ulcers Neurological: Alert and Oriented x 3 Result Diagrams: 02/09/19 08:09 02/09/19 08:09 Additional Lab and Data: Lab Results 02/06/19 02/06/19 02/06/19 Range/Units 15:00 15:00 15:00 WBC 17.3 H (3.5-10.8) 10^3/uL RBC 3.75 L (4.18-5.48) 10^6 /uL Hgb 8.6 L (14.0-18.0) g/dL Hct 28 L (42-52) % MCV 74 L (80-94) fL MCH 23 L (27-31) pg MCHC 31 (31-36) g/dL RDW 17 H (10.5-15) % Plt Count 338 (150-450) 10^3/uL MPV 7.6 (7.4-10.4) fL Neut % (Auto) 80.6 % Lymph % (Auto) 10.6 % [place] % (Auto) 3.8 % Eos % (Auto) 4.7 % Baso % (Auto) 0.3 % Absolute Neuts (auto) 13.9 H (1.5-7.7) 10^3/ul Absolute Lymphs (auto) 1.8 (1.0-4.8) 10^3/ul Absolute Monos (auto) 0.7 (0-0.8) 10^3/ul Absolute Eos (auto) 0.8 H (0-0.6) 10^3/ul Absolute Basos (auto) 0.0 (0-0.2) 10^3/ul Absolute Nucleated RBC 0.0 10^3/ul Nucleated RBC % 0.0 INR (Anticoag Therapy) (0.82-1.09) APTT (26.0-36.3) seconds Sodium 136 (135-145) mmol/L Potassium 4.2 (3.5-5.0) mmol/L Chloride 98 L (101-111) mmol/L Carbon Dioxide 32 (22-32) mmol/L Anion Gap 6 (2-11) mmol/L BUN 27 H (6-24) mg/dL Creatinine 1.93 H (0.67-1.17) mg/dL Est GFR ( Amer) 42.5 (>60) Est GFR (Non-Af Amer) 35.1 (>60) BUN/Creatinine Ratio 14.0 (8-20) Glucose 190 H (70-100) mg/dL Hemoglobin A1c (4.0-5.6) % Lactic Acid 2.3 H* (0.5-2.0) mmol/L Calcium 9.0 (8.6-10.3) mg/dL Total Bilirubin 0.30 (0.2-1.0) mg/dL AST 6 L (13-39) U/L ALT 5 L (7-52) U/L Alkaline Phosphatase 65 (34-104) U/L C-Reactive Protein 129.72 H (<8.01) mg/L Total Protein 8.1 (6.4-8.9) g/dL Albumin 3.3 (3.2-5.2) g/dL Globulin 4.8 H (2-4) g/dL Albumin/Globulin Ratio 0.7 L (1-3) 02/06/19 02/06/19 Range/Units 15:00 15:00 WBC (3.5-10.8) 10^3/uL RBC (4.18-5.48) 10^6 /uL Hgb (14.0-18.0) g/dL Hct (42-52) % MCV (80-94) fL MCH (27-31) pg MCHC (31-36) g/dL RDW (10.5-15) % Plt Count (150-450) 10^3/uL MPV (7.4-10.4) fL Neut % (Auto) % Lymph % (Auto) % [place] % (Auto) % Eos % (Auto) % Baso % (Auto) % Absolute Neuts (auto) (1.5-7.7) 10^3/ul Absolute Lymphs (auto) (1.0-4.8) 10^3/ul Absolute Monos (auto) (0-0.8) 10^3/ul Absolute Eos (auto) (0-0.6) 10^3/ul Absolute Basos (auto) (0-0.2) 10^3/ul Absolute Nucleated RBC 10^3/ul Nucleated RBC % INR (Anticoag Therapy) 1.10 H (0.82-1.09) APTT 28.8 (26.0-36.3) seconds Sodium (135-145) mmol/L Potassium (3.5-5.0) mmol/L Chloride (101-111) mmol/L Carbon Dioxide (22-32) mmol/L Anion Gap (2-11) mmol/L BUN (6-24) mg/dL Creatinine (0.67-1.17) mg/dL Est GFR ( Amer) (>60) Est GFR (Non-Af Amer) (>60) BUN/Creatinine Ratio (8-20) Glucose (70-100) mg/dL Hemoglobin A1c 8.7 H (4.0-5.6) % Lactic Acid (0.5-2.0) mmol/L Calcium (8.6-10.3) mg/dL Total Bilirubin (0.2-1.0) mg/dL AST (13-39) U/L ALT (7-52) U/L Alkaline Phosphatase (34-104) U/L C-Reactive Protein (<8.01) mg/L Total Protein (6.4-8.9) g/dL Albumin (3.2-5.2) g/dL Globulin (2-4) g/dL Albumin/Globulin Ratio (1-3) Microbiology and Other Data: Microbiology 02/06/19 14:55 Skin and Soft Tissue MRSA/MSSA (PCR - Final Foot Left Mrsa Negative S.aureus Positive Gram Stain - Final Assess/Plan/Problems-Billing Assessment: 63yom with PMHx DM, HTN, COPD, Fe deficiency, CKD 3, h/o osteomyelitis presents with cellulitis LLE, calcaneal area. - Patient Problems (1) Cellulitis and abscess of foot Current Visit: Yes Status: Acute Code(s): L03.119 - CELLULITIS OF UNSPECIFIED PART OF LIMB; L02.619 - CUTANEOUS ABSCESS OF UNSPECIFIED FOOT SNOMED Code(s): 851193691 Comment: -No extension of erythema -MRI negative for osteomyelitis -ANASTASIYA abnormal, consistent with PAD. Pt is following with Dr. Steel for angiogram -MRSA negative- d/c vanco -Continue cefepime, flagyl -Appreciate ortho input (2) Chronic kidney disease Current Visit: Yes Status: Acute Code(s): N18.9 - CHRONIC KIDNEY DISEASE, UNSPECIFIED SNOMED Code(s): 001839818 Comment: -at baseline (3) Atrial fibrillation Current Visit: No Status: Acute Code(s): I48.91 - UNSPECIFIED ATRIAL FIBRILLATION SNOMED Code(s): 77541168 Comment: -Rate controlled -Continue dignoxin, metoprolol (4) COPD (chronic obstructive pulmonary disease) Current Visit: No Status: Acute Code(s): J44.9 - CHRONIC OBSTRUCTIVE PULMONARY DISEASE, UNSPECIFIED SNOMED Code(s): 24701688 Comment: -Stable, not in exacerbation and at baseline oxygen requirements at 1L O2 -Continue Dulera (5) DVT prophylaxis Current Visit: No Status: Acute Code(s): OVK2456 - SNOMED Code(s): 816466245 Comment: -Heparin SQ (6) Diabetes mellitus, type 2 Current Visit: No Status: Acute Comment: -A1c 8.7% -Continue Lantus, Lispro SS Status and Disposition: Inpatient. PT/OT.Discharge planning Poss d/c on Sunday after eval pt/ot needs
--- NOTE | 2019-02-09 15:11 | PN ---
Progress Note - Progress Note Date of Service: 02/09/19 SOAP: Subjective: Pt seen at bedside. Pain controlled with Tylenol. Denies CP, SOB, F/C Vital Signs: Temp Pulse Resp BP Pulse Ox 98.2 F 75 18 144/61 98 02/09/19 07:37 02/09/19 09:16 02/09/19 08:00 02/09/19 07:37 02/09/19 07:37 Laboratory Last Values WBC 11.2 10^3/uL (3.5-10.8) H 02/09/19 08:09 RBC 3.31 10^6 /uL (4.18-5.48) L 02/09/19 08:09 Hgb 7.7 g/dL (14.0-18.0) L 02/09/19 08:09 Hct 24 % (42-52) L 02/09/19 08:09 MCV 74 fL (80-94) L 02/09/19 08:09 MCH 23 pg (27-31) L 02/09/19 08:09 MCHC 32 g/dL (31-36) 02/09/19 08:09 RDW 16 % (10.5-15) H 02/09/19 08:09 Plt Count 319 10^3/uL (150-450) 02/09/19 08:09 MPV 7.1 fL (7.4-10.4) L 02/09/19 08:09 Neut % (Auto) 74.2 % 02/09/19 08:09 Lymph % (Auto) 16.0 % 02/09/19 08:09 [place] % (Auto) 4.8 % 02/09/19 08:09 Eos % (Auto) 4.5 % 02/09/19 08:09 Baso % (Auto) 0.5 % 02/09/19 08:09 Absolute Neuts (auto) 8.3 10^3/ul (1.5-7.7) H 02/09/19 08:09 Absolute Lymphs (auto) 1.8 10^3/ul (1.0-4.8) 02/09/19 08:09 Absolute Monos (auto) 0.5 10^3/ul (0-0.8) 02/09/19 08:09 Absolute Eos (auto) 0.5 10^3/ul (0-0.6) 02/09/19 08:09 Absolute Basos (auto) 0.1 10^3/ul (0-0.2) 02/09/19 08:09 Absolute Nucleated RBC 0.0 10^3/ul 02/09/19 08:09 Nucleated RBC % 0.0 02/09/19 08:09 INR (Anticoag Therapy) 1.10 (0.82-1.09) H 02/06/19 15:00 APTT 28.8 seconds (26.0-36.3) 02/06/19 15:00 Sodium 137 mmol/L (135-145) 02/09/19 08:09 Potassium 4.1 mmol/L (3.5-5.0) 02/09/19 08:09 Chloride 101 mmol/L (101-111) 02/09/19 08:09 Carbon Dioxide 30 mmol/L (22-32) 02/09/19 08:09 Anion Gap 6 mmol/L (2-11) 02/09/19 08:09 BUN 25 mg/dL (6-24) H 02/09/19 08:09 Creatinine 1.62 mg/dL (0.67-1.17) H 02/09/19 08:09 Est GFR ( Amer) 52.0 (>60) 02/09/19 08:09 Est GFR (Non-Af Amer) 43.0 (>60) 02/09/19 08:09 BUN/Creatinine Ratio 15.4 (8-20) 02/09/19 08:09 Glucose 118 mg/dL (70-100) H 02/09/19 08:09 POC Glucose (mg/dL) 139 mg/dL (70-100) H 02/09/19 12:14 Hemoglobin A1c 8.7 % (4.0-5.6) H 02/06/19 15:00 Lactic Acid 1.3 mmol/L (0.5-2.0) 02/06/19 22:42 Calcium 8.4 mg/dL (8.6-10.3) L 02/09/19 08:09 Total Bilirubin 0.30 mg/dL (0.2-1.0) 02/06/19 15:00 AST 6 U/L (13-39) L 02/06/19 15:00 ALT 5 U/L (7-52) L 02/06/19 15:00 Alkaline Phosphatase 65 U/L (34-104) 02/06/19 15:00 C-Reactive Protein 129.72 mg/L (<8.01) H 02/06/19 15:00 Total Protein 8.1 g/dL (6.4-8.9) 02/06/19 15:00 Albumin 3.3 g/dL (3.2-5.2) 02/06/19 15:00 Globulin 4.8 g/dL (2-4) H 02/06/19 15:00 Albumin/Globulin Ratio 0.7 (1-3) L 02/06/19 15:00 Urine Color Yellow 02/07/19 05:30 Urine Appearance Cloudy 02/07/19 05:30 Urine pH 5.0 (5-9) 02/07/19 05:30 Ur Specific Baker 1.011 (1.010-1.030) 02/07/19 05:30 Urine Protein 2+(100 mg/dl) (Negative) A 02/07/19 05:30 Urine Ketones Negative (Negative) 02/07/19 05:30 Urine Blood 1+ (Negative) A 02/07/19 05:30 Urine Nitrate Negative (Negative) 02/07/19 05:30 Urine Bilirubin Negative (Negative) 02/07/19 05:30 Urine Urobilinogen Negative (Negative) 02/07/19 05:30 Ur Leukocyte Esterase Negative (Negative) 02/07/19 05:30 Urine WBC (Auto) Trace(0-5/hpf) (Absent) 02/07/19 05:30 Urine RBC (Auto) 1+(3-5/hpf) (Absent) A 02/07/19 05:30 Urine Bacteria Absent (Absent) 02/07/19 05:30 Hyaline Casts Present (Absent) A 02/07/19 05:30 Urine Glucose 1+(50 mg/dl) (Negative) A 02/07/19 05:30 Objective: A&O x3, NAD, Dressing C/D/I, Calves soft and nontender, Decreased sensation Assessment: 63 yo male left foot ulcer Plan: Continue IV abx awaiting vascular workup Continue betadine wet to dry dressing changes Ortho will follow
[2019-02-09] MEDS: Tamsulosin CAP* 0.4 MG PO SCH (22:36)
[2019-02-10] MEDS: Acetaminophen TAB* 325 MG PO PRN ×2 (01:29→19:52)
[2019-02-10] MEDS: Insulin GLARGINE(*) 1 UNITS UNIT SUBCUT SCH ×2 (06:22→17:26)
[2019-02-10] MEDS: Cefepime 1 GM in Dextrose(*) 1 GM/50 ML BAG IV SCH ×2 (06:22→18:08)
[2019-02-10] MEDS: Heparin VIAL(*) 5000 UNITS/ML VIAL (FIVE THOUSAND) SUBCUT SCH ×3 (06:23→20:51)
[2019-02-10 07:40] LABS: ABS Basophils 0.1 10^3/ul (0-0.2); ABS Eosinophils 0.5 10^3/ul (0-0.6); ABS Lymphocytes 1.6 10^3/ul (1.0-4.8); ABS Monocytes 0.6 10^3/ul (0-0.8); Eosinophil % 5.2 %; Hematocrit 24 % (42-52); Hemoglobin 7.7 g/dL (14.0-18.0); Lymphocyte % 16.8 %; Mean Corpuscular HGB Conc 32 g/dL (31-36); Mean Corpuscular Hemoglobin 24 pg (27-31); Mean Corpuscular Volume 74 fL (80-94); Mean Platelet Volume 7.2 fL (7.4-10.4); Platelet Count 306 10^3/uL (150-450); Red Blood Count 3.22 10^6 /uL (4.18-5.48); Red Cell Distribution Width 16 % (10.5-15); White Blood Count 9.8 10^3/uL (3.5-10.8)
[2019-02-10 07:48] LABS: BUN/Creatinine Ratio 14.5 (8-20); Calcium 8.4 mg/dL (8.6-10.3); EGFR African American 50.6 (>60); EGFR Non-African American 41.8 (>60)
[2019-02-10] MEDS: Mometasone/Formoter 100/5 MDI INH SCH ×2 (08:06→19:05)
[2019-02-10] MEDS: Metoprolol Tartrate TAB* 50 mg PO SCH ×2 (08:22→19:52)
[2019-02-10] MEDS: Potassium Chlor TAB* 10 MEQ TAB.ER PO SCH (08:22)
[2019-02-10] MEDS: metroNIDAZOLE IV 500 MG/100ML* 500 MG/100 ML BAG IVPB SCH ×2 (08:23→20:47)
[2019-02-10] MEDS: Digoxin TAB* 0.125 MG PO SCH (08:23)
[2019-02-10] MEDS: Cyanocobalamin TAB* 500 MCG PO SCH (08:23)
[2019-02-10] MEDS: Aspirin EC TAB* 81 MG TAB.EC PO SCH (08:23)
[2019-02-10] MEDS: Insulin LISPRO* 1 UNITS UNIT SUBCUT SCH ×4 (08:23→21:18)
[2019-02-10] MEDS: Ferrous Sulfate TAB* 325 MG PO SCH ×3 (08:23→19:52)
--- NOTE | 2019-02-10 10:33 | CONSULT ---
Consult Consult: Date of Service: 02/10/19 Reason for Consultation: Worsening left heel wound in a patient with known atherosclerosis and lower extremity arterial insufficiency Requesting provider: Dr. Martinez ([facility]) (Relevant) HPI: Patient is a 63-year-old male, known to the Interventional Radiology service, with a PMH of PVD, osteomyelitis, diabetes and hypertension admitted from the wound care clinic 02/06/19. I first met Jamie 08/28/2018 in the interventional radiology clinic where he was referred for lower extremity arterial insufficiency. Between that clinic visit and now I saw him as an inpatient as well. The patient was scheduled for lower extremity arteriography with potential revascularization but did not present for the day of his procedure. He reports he was admitted to the hospital with "diabetes issue" that prevented him from presenting for his prior angiogram. The [facility] staff reported he has had increased pain, erythema and drainage from the chronic left heel wound. Left heel has been treated since the beginning of the year, however has recently worsened. The ulcer to the heel has now eschar and draining and is also increased in size since his last appointment. He has never had surgeries for his ulcers and osteomyelitis. He denies any other symptoms including SOB, CP, cough, urinary symptoms, back pain , fevers, sweats, chills. PMH & PSH: Previously Healthy: No Endocrine/Hematology History: Reports: Hx Anticoagulant Therapy - baby aspirin 1 /day, Hx Diabetes - DM II, Hx Anemia - TAKING IRON Cardiovascular History: Reports: Hx Congestive Heart Failure - Systolic HF, Hx Hypertension Denies: Hx Myocardial Infarction, Hx Pacemaker/ICD Respiratory History: Reports: Hx Chronic Obstructive Pulmonary Disease (COPD) - 2L O2, Hx Pulmonary Edema, Hx Sleep Apnea Denies: Hx Asthma GI History: Reports: Hx Hiatal Hernia - 25 years, Other GI Disorders - has some small gall stones- no issues History: Denies: Hx Dialysis, Hx Renal Disease Musculoskeletal History: Reports: Hx Arthritis - mild L4-L5, Other Musculoskeletal History - osteomyalgia bilateral foot Sensory History: Reports: Hx Cataracts Denies: Hx Contacts or Glasses, Hx Legally Blind, Hx Deafness, Hx Hearing Aid Opthamlomology History: Reports: Hx Cataracts Denies: Hx Contacts or Glasses, Hx Legally Blind Neurological History: Reports: Hx Nerve Disease - bilat neuropathy Denies: Hx Headaches Psychiatric History: Reports: Hx Depression Denies: Hx Anxiety, Hx Panic Disorder Surgeries: Surgery Procedure, Year, and Place: dental - teeth removed - sedated, cataracts Hx Anesthesia Reactions: No Social Hx: Occupation: Unemployed, Disabled Lives: Alone Alcohol Use: None Hx Substance Use: No Substance Use Type: Reports: None Hx Tobacco Use: No Smoking Status (MU): Never Smoked Tobacco Amount Used/How Often: only smoked 2 years - never inhaled Have You Smoked in the Last Year: No ROS: Constitutional: Negative Negative: Fever, Chills, Fatigue, Skin Diaphoresis Negative: Palpitations, Chest Pain Negative: Shortness Of Breath, Cough Genitourinary: Negative Positive: no symptoms reported, see HPI Negative: Arthralgia, Myalgia Positive: Other - heel ulcer Neurological: Negative All Other Systems Reviewed And Are Negative: Yes Physical Examination: Selected Entries 02/10/19 02/10/19 02/10/19 07:34 08:06 08:23 Temperature 97.4 F Pulse Rate 61 Respiratory 18 Rate Blood Pressure 139/59 (mmHg) Blood Pressure 79 Mean O2 Sat by Pulse 99 Oximetry Oxygen Flow 1 Rate Patient on Room No Air NAD, AAO x 3 CTAB, RRR 2+ pulses palpated at bilateral CERAMIC PAINTER & POP 1+ palpable right CONTACT FINGER ASSEMBLER, Cannot palpate right DPA or left pedal arteries Left heel is dressed with sterile gauze and DEVIN wrap Vascular Imaging: Patient Name: JAMIE SERRANO Medical Record#: [id number] Ordering Physician: Breonna Arnold NP Acct.#: [id number] : 1955 Age: 63 Sex: M Location: [address] [place] [address] - MEDICAL Exam Date: 02/06/191744 ADM Status: ADM IN Order Information: VL ANK/ BRACHIAL INDICES Accession Number: [id number] CPT: 09455 EXAM: US Bilateral Noninvasive Physiologic Study of the Upper or Lower Extremity Arteries, Limited EXAM DATE/TIME: 02/06/2019 11:58 PM CLINICAL HISTORY: 63 years old, male; Pain and signs and symptoms; Other: Ulcer left heel; Foot; Additional info: Heel ulcer TECHNIQUE: Imaging protocol: Bilateral Bilateral noninvasive physiologic studies of upper or lower extremity arteries. Ankle/brachial indices at distal posterior tibial and anterior tibial/dorsalis pedis arteries plus bidirectional, doppler waveform recording and analysis at 1-2 levels, or ankle/brachial indices at distal posterior tibial and anterior tibial/dorsalis pedis arteries plus volume plethysmography at 1-2 levels, or ankle/brachial indices at distal posterior tibial and anterior tibial/dorsalis pedis arteries with, transcutaneous oxygen tension measurement at 1-2 levels. Limited. COMPARISON: US ANASTASIYA VL ANK/BRACHIAL INDICES 07/19/2018 9:36 AM FINDINGS: Vasculature: The ankle brachial index on the right was 0.87 (previously 0.83) and on the left was 0.57 (previously 0.64). There is triphasic flow within the right posterior tibial artery and dorsalis pedis artery. There is monophasic flow within the left posterior tibial artery and biphasic flow within the left dorsalis pedis artery. IMPRESSION: Abnormal ankle brachial index consistent with peripheral arterial disease; slightly increased on the right and slightly decreased on the left since prior study. To contact [facility] with a general question: [facility] - [phone] For direct physician to physician contact: Physician Hotline - [phone] [facility] ([facility] Facility ID #[id number]) <Electronically signed by Apple Monahan MD in OV> 02/07/19101 Dictated By: Apple Monahan MD Dictated Date/Time: 02/07/19101 (Relevant) Labs: Laboratory Tests 02/06/19 02/06/19 02/07/19 15:00 15:00 : WBC 17.3 H 13.3 H RBC Hgb Hct Plt Count INR (Anticoag Therapy) 1.10 H APTT 28.8 BUN Creatinine Est GFR ( Amer) Est GFR (Non-Af Amer) POC Glucose (mg/dL) 02/08/19 02/09/19 02/10/19 08:08 08:09 07:15 WBC 10.5 11.2 H 9.8 RBC 3.22 L Hgb 7.7 L Hct 24 L Plt Count 306 INR (Anticoag Therapy) APTT BUN Creatinine Est GFR ( Amer) Est GFR (Non-Af Amer) POC Glucose (mg/dL) 02/10/19 02/10/19 07:15 08:06 WBC RBC Hgb Hct Plt Count INR (Anticoag Therapy) APTT BUN 24 Creatinine 1.66 H Est GFR ( Amer) 50.6 Est GFR (Non-Af Amer) 41.8 POC Glucose (mg/dL) 169 H Summary: 63 YOM with diabetic lower extremity vasculopathy likely exacerbating his chronic left heel wound. As has been advised in the past, his chances of healing his left heel wound are improved with improved arterial flow which requires angiography and possible endovascular intervention. Plan: 1. Left leg arteriography and attempted revascularization of the popliteal & infrapopliteal arteries. 2. The patient's WBC has normalized with IV abx and therefore angiography is not an emergency and can be scheduled as an outpatient. 3. The patient expressed challenges with transportation. SW will be contacted about providing a transportation before an early Sunday angiography so that the patient can ride with [employer] in the afternoon after angiography.
--- NOTE | 2019-02-10 12:58 | PN ---
Subjective Date of Service: 02/10/19 Interval History: Pt feels well, when asked about anemia, denies BRBPR or melena Left heel wound had been there for over 3 months, hurts only when touched Objective Active Medications: Acetaminophen (Tylenol Tab*) 650 mg PO Q4H PRN PRN Reason: FEVER/PAIN Last Admin: 02/10/19 01:29 Dose: 650 mg Albuterol (Ventolin Hfa Inhaler*) 2 puff INH Q6HR PRN PRN Reason: SOB/WHEEZING Albuterol/Ipratropium (Duoneb (Albuterol 2.5 Mg/Ipratropium 0.5 Mg)) 1 neb INH Q4H PRN PRN Reason: SOB/WHEEZING Aspirin (Aspirin Ec Tab*) 81 mg PO DAILY [facility] Last Admin: 02/10/19 08:23 Dose: 81 mg Cyanocobalamin (Vitamin B12 Tab*) 1,000 mcg PO DAILY [facility] Last Admin: 02/10/19 08:23 Dose: 1,000 mcg Dextrose (D50w Syringe 50 Ml*) 12.5 gm IV PUSH .FOR FS < 60 - SS PRN PRN Reason: FS < 60 Digoxin (Lanoxin Tab*) 0.125 mg PO DAILY [facility] Last Admin: 02/10/19 08:23 Dose: 0.125 mg Ferrous Sulfate (Ferrous Sulfate Tab*) 325 mg PO TID [facility] Last Admin: 02/10/19 12:27 Dose: 325 mg Heparin Sodium (Porcine) (Heparin Vial(*)) 5,000 units SUBCUT Q8HR [facility] Last Admin: 02/10/19 12:27 Dose: 5,000 units Metronidazole/Sodium Chloride (Flagyl 500 Mg Ivpb*) 500 mg in 100 mls @ 100 mls /hr IVPB Q12HR@0800,2000 [facility] Last Admin: 02/10/19 08:23 Dose: 100 mls/hr Cefepime HCl (Maxipime 1 Gm In Dextrose Duplex (*)) 1 gm in 50 mls @ 100 mls/ hr IV Q12H [facility] Last Admin: 02/10/19 06:22 Dose: 100 mls/hr Insulin Glargine (Lantus(*)) 20 units SUBCUT Q12H [facility] Last Admin: 02/10/19 06:22 Dose: 20 units Insulin Human Lispro (Humalog*) 0 units SUBCUT ACHS [facility]; Protocol Last Admin: 02/10/19 12:27 Dose: 6 units Lorazepam (Ativan Tab(*)) 0.5 mg PO Q8HR PRN PRN Reason: ANXIETY Metoprolol Tartrate (Lopressor Tab*) 50 mg PO BID [facility] Last Admin: 02/10/19 08:22 Dose: 50 mg Mometasone Furoate/Formoterol Fumar (Dulera 100/5 Mdi*) 2 puff INH BID [facility] Last Admin: 02/10/19 08:06 Dose: 2 puff Potassium Chloride (Klor Con Er Tab*) 10 meq PO DAILY [facility] Last Admin: 02/10/19 08:22 Dose: 10 meq Tamsulosin HCl (Flomax Cap*) 0.4 mg PO BEDTIME [facility] Last Admin: 02/09/19 22:36 Dose: 0.4 mg Vital Signs - 8 hr 02/10/19 02/10/19 02/10/19 07:34 08:00 08:06 Temperature 97.4 F Pulse Rate 63 61 Respiratory 20 18 18 Rate Blood Pressure 139/59 (mmHg) O2 Sat by Pulse 98 99 Oximetry 02/10/19 02/10/19 08:23 11:17 Temperature 97.6 F Pulse Rate 61 62 Respiratory 20 Rate Blood Pressure 150/65 (mmHg) O2 Sat by Pulse 100 Oximetry Oxygen Devices in Use Now: Nasal Cannula Appearance: 63 yo M in nAD, aAOx3 Eyes: No Scleral Icterus, PERRLA Ears/Nose/Mouth/Throat: NL Teeth, Lips, Gums, Mucous Membranes Moist Neck: NL Appearance and Movements; NL JVP, Trachea Midline Respiratory: Symmetrical Chest Expansion and Respiratory Effort, Clear to Auscultation Cardiovascular: NL Sounds; No Murmurs; No JVD, RRR Abdominal: NL Sounds; No Tenderness; No Distention Lymphatic: No Cervical Adenopathy Extremities: No Clubbing, Cyanosis, - - poorly palpable pedal pulses, good cap refill b/l feet Skin: No Nodules or Sclerosis, - - left heel with necrotic appearing eschar at 5 cm in diam with no surrounding cellulitis Neurological: Alert and Oriented x 3, NL Muscle Strength and Tone Result Diagrams: 02/10/19 07:15 02/10/19 07:15 Additional Lab and Data: Lab Results 02/06/19 02/06/1902/06/19 Range/Units 15:00 15:00 15:00 WBC 17.3 H (3.5-10.8) 10^3/uL RBC 3.75 L (4.18-5.48) 10^6 /uL Hgb 8.6 L (14.0-18.0) g/dL Hct 28 L (42-52) % MCV 74 L (80-94) fL MCH 23 L (27-31) pg MCHC 31 (31-36) g/dL RDW 17 H (10.5-15) % Plt Count 338 (150-450) 10^3/uL MPV 7.6 (7.4-10.4) fL Neut % (Auto) 80.6 % Lymph % (Auto) 10.6 % [place] % (Auto) 3.8 % Eos % (Auto) 4.7 % Baso % (Auto) 0.3 % Absolute Neuts (auto) 13.9 H (1.5-7.7) 10^3/ul Absolute Lymphs (auto) 1.8 (1.0-4.8) 10^3/ul Absolute Monos (auto) 0.7 (0-0.8) 10^3/ul Absolute Eos (auto) 0.8 H (0-0.6) 10^3/ul Absolute Basos (auto) 0.0 (0-0.2) 10^3/ul Absolute Nucleated RBC 0.0 10^3/ul Nucleated RBC % 0.0 INR (Anticoag Therapy) (0.82-1.09) APTT (26.0-36.3) seconds Sodium 136 (135-145) mmol/L Potassium 4.2 (3.5-5.0) mmol/L Chloride 98 L (101-111) mmol/L Carbon Dioxide 32 (22-32) mmol/L Anion Gap 6 (2-11) mmol/L BUN 27 H (6-24) mg/dL Creatinine 1.93 H (0.67-1.17) mg/dL Est GFR ( Amer) 42.5 (>60) Est GFR (Non-Af Amer) 35.1 (>60) BUN/Creatinine Ratio 14.0 (8-20) Glucose 190 H (70-100) mg/dL Hemoglobin A1c (4.0-5.6) % Lactic Acid 2.3 H* (0.5-2.0) mmol/L Calcium 9.0 (8.6-10.3) mg/dL Total Bilirubin 0.30 (0.2-1.0) mg/dL AST 6 L (13-39) U/L ALT 5 L (7-52) U/L Alkaline Phosphatase 65 (34-104) U/L C-Reactive Protein 129.72 H (<8.01) mg/L Total Protein 8.1 (6.4-8.9) g/dL Albumin 3.3 (3.2-5.2) g/dL Globulin 4.8 H (2-4) g/dL Albumin/Globulin Ratio 0.7 L (1-3) 02/06/19 02/06/19 Range/Units 15:00 15:00 WBC (3.5-10.8) 10^3/uL RBC (4.18-5.48) 10^6 /uL Hgb (14.0-18.0) g/dL Hct (42-52) % MCV (80-94) fL MCH (27-31) pg MCHC (31-36) g/dL RDW (10.5-15) % Plt Count (150-450) 10^3/uL MPV (7.4-10.4) fL Neut % (Auto) % Lymph % (Auto) % [place] % (Auto) % Eos % (Auto) % Baso % (Auto) % Absolute Neuts (auto) (1.5-7.7) 10^3/ul Absolute Lymphs (auto) (1.0-4.8) 10^3/ul Absolute Monos (auto) (0-0.8) 10^3/ul Absolute Eos (auto) (0-0.6) 10^3/ul Absolute Basos (auto) (0-0.2) 10^3/ul Absolute Nucleated RBC 10^3/ul Nucleated RBC % INR (Anticoag Therapy) 1.10 H (0.82-1.09) APTT 28.8 (26.0-36.3) seconds Sodium (135-145) mmol/L Potassium (3.5-5.0) mmol/L Chloride (101-111) mmol/L Carbon Dioxide (22-32) mmol/L Anion Gap (2-11) mmol/L BUN (6-24) mg/dL Creatinine (0.67-1.17) mg/dL Est GFR ( Amer) (>60) Est GFR (Non-Af Amer) (>60) BUN/Creatinine Ratio (8-20) Glucose (70-100) mg/dL Hemoglobin A1c 8.7 H (4.0-5.6) % Lactic Acid (0.5-2.0) mmol/L Calcium (8.6-10.3) mg/dL Total Bilirubin (0.2-1.0) mg/dL AST (13-39) U/L ALT (7-52) U/L Alkaline Phosphatase (34-104) U/L C-Reactive Protein (<8.01) mg/L Total Protein (6.4-8.9) g/dL Albumin (3.2-5.2) g/dL Globulin (2-4) g/dL Albumin/Globulin Ratio (1-3) Microbiology and Other Data: Microbiology 02/06/19 14:55 Skin and Soft Tissue MRSA/MSSA (PCR - Final Foot Left Mrsa Negative S.aureus Positive Gram Stain - Final Assess/Plan/Problems-Billing Assessment: 63yom with PMHx DM, HTN, COPD, Fe deficiency, CKD 3, h/o osteomyelitis presents with cellulitis LLE, calcaneal area. - Patient Problems (1) Cellulitis and abscess of foot Comment: -No extension of erythema, no abscess -MRI negative for osteomyelitis -ANASTASIYA abnormal, consistent with PAD. Pt is following with Dr. Steel for angiogram -MRSA negative- d/c vanco -Continue cefepime, flagyl, wound cx growing MSSA -Appreciate ortho input (2) Chronic kidney disease Comment: -at baseline (3) Atrial fibrillation Comment: -today in regular rhythm -Continue digoxin, metoprolol (4) COPD (chronic obstructive pulmonary disease) Comment: -Stable, not in exacerbation and at baseline oxygen requirements at 1L O2 -Continue Dulera (5) PAD (peripheral artery disease) Comment: - Left sided infrapopliteal arterial insufficiency - Appreciate IR consult; recommends arteriography as an outpt- Dr. Steel's office will call pt - Continue aspirin (6) Anemia Comment: - Stable, consistent with baseline - Continue ferrous sulfate, vitamin B12 (7) DVT prophylaxis Comment: -Heparin SQ Status and Disposition: Inpatient. PT/OT.Discharge planning
[2019-02-10] MEDS ORDERED: Senna TAB PO PRN (14:49)
[2019-02-10] MEDS ORDERED: Magnesium Hydroxide LIQ* 30 ML UDC PO PRN (14:49)
[2019-02-10] MEDS ORDERED: Polyethylene Glycol 3350* 17 GM PACKET PO PRN (14:49)
[2019-02-10] MEDS: Docusate CAP* 100 MG PO SCH (19:51)
[2019-02-10] MEDS: Tamsulosin CAP* 0.4 MG PO SCH (19:52)
[2019-02-10] MEDS: Magnesium Hydroxide LIQ* 30 ML UDC PO SCH (19:54)
[2019-02-11] MEDS: Insulin GLARGINE(*) 1 UNITS UNIT SUBCUT SCH ×2 (06:03→17:19)
[2019-02-11] MEDS: Heparin VIAL(*) 5000 UNITS/ML VIAL (FIVE THOUSAND) SUBCUT SCH ×2 (06:03→12:23)
[2019-02-11] MEDS: Cefepime 1 GM in Dextrose(*) 1 GM/50 ML BAG IV SCH (06:03)
[2019-02-11] MEDS: Mometasone/Formoter 100/5 MDI INH SCH ×2 (07:56→19:10)
[2019-02-11] MEDS: metroNIDAZOLE IV 500 MG/100ML* 500 MG/100 ML BAG IVPB SCH (09:05)
[2019-02-11] MEDS: Cyanocobalamin TAB* 500 MCG PO SCH (09:15)
[2019-02-11] MEDS: Metoprolol Tartrate TAB* 50 mg PO SCH ×2 (09:15→20:56)
[2019-02-11] MEDS: Cephalexin CAP* 500 MG PO SCH ×3 (09:15→21:13)
[2019-02-11] MEDS: Potassium Chlor TAB* 10 MEQ TAB.ER PO SCH (09:15)
[2019-02-11] MEDS: Insulin LISPRO* 1 UNITS UNIT SUBCUT SCH ×4 (09:16→21:13)
[2019-02-11] MEDS: Magnesium Hydroxide LIQ* 30 ML UDC PO SCH (09:16)
[2019-02-11] MEDS: Ferrous Sulfate TAB* 325 MG PO SCH (09:16)
[2019-02-11] MEDS: Digoxin TAB* 0.125 MG PO SCH (09:16)
[2019-02-11] MEDS: Docusate CAP* 100 MG PO SCH (09:16)
[2019-02-11] MEDS: Aspirin EC TAB* 81 MG TAB.EC PO SCH (09:16)
[2019-02-11] MEDS: Ascorbic Acid TAB* 500 MG PO SCH (09:16)
--- NOTE | 2019-02-11 11:24 | PN ---
Progress Note - Progress Note Date of Service: 02/11/19 SOAP: Subjective: [Pt seen at bedside. Pain controlled with Tylenol. Denies CP, SOB, F/C Objective: A&O x3, NAD, Dressing C/D/I, Changed today. There is circular area present on the heel that is black. There is no drainage present. Calves soft and nontender , Decreased sensation Vital Signs Temp 97.8 F 02/11/19 07:49 Pulse 60 02/11/19 09:16 Resp 20 02/11/19 08:00 BP 122/53 02/11/19 07:49 Pulse Ox 100 02/11/19 07:58 Intake & Output 02/10/19 02/11/19 02/11/19 18:59 06:59 18:59 Intake Total 2218 210 80 Output Total 2155 500 Balance 63 -290 80 Intake: IV Fluids 20 60 30 NS 0.9% 20 60 30 IVPB 108 150 50 Flagyl 108 100 cefepime 50 50 Oral 2090 Output: Urine 2155 500 Other: Date of Last Bowel [id number] Movement # Bowel Movements 0 0 # Voids 3 Assessment: 63 yo male left foot ulcer Plan: Continue IV abx Continue betadine wet to dry dressing changes MRI negative for osteomyelitis ANASTASIYA abnormal, consistent with PAD. Pt is following with Dr. Steel for angiogram
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
--- NOTE | 2019-02-11 17:04 | CONS ---
CONSULTATION REPORT: DATE OF CONSULTATION: 02/11/19 REQUESTING PHYSICIAN: Deja Kim MD. CONSULTING SERVICE: Infectious Disease. REASON FOR CONSULTATION: Left heel infection. IMPRESSION: 1. Chronic left heel ulcer after immobilization and now with wound infection cellulitis. MRI showed no osteomyelitis. Wound cultures growing methicillin- sensitive Staph aureus, which has grown over time. 2. History of treatment for osteomyelitis. 3. Penicillin allergy caused rash as the child. 4. Type 2 diabetes. 5. State III chronic kidney disease. RECOMMENDATIONS: Agree with cephalexin 500 mg by mouth 3 times a day dose for his GFR, will plan a 14-day course. He will have wound care followup in my office in the next week or 2. HISTORY OF PRESENT ILLNESS: This is a 63-year-old male with chronic kidney disease; diabetes; chronic bilateral heel ulcers, more recently has had more trouble with one on the left which is persistent. Recently, he has followed with the wound clinic. He had developed some redness and foul odor from it and so they routed him to the ER on 02/06/19. He had a white count of 17,000. He was afebrile. He had blood cultures sent that were negative. He had wound culture growing Staph aureus, PCR positive for MSSA, negative for MRSA. He has been on Ancef tolerating it well and has had improvement in the cellulitis and odor associated with the wound. MRI showed no osteomyelitis. PAST MEDICAL HISTORY: 1. Type 2 diabetes. 2. Peripheral neuropathy. 3. Chronic kidney disease. 4. Hypertension. 5. Atrial fibrillation. 6. COPD. 7. Obesity with recent ongoing attempts at weight loss. 8. Iron-deficiency anemia. 9. Depression. ALLERGIES: PENICILLIN caused rash. MEDICATIONS: 1. Tylenol. 2. Albuterol. 3. Vitamin C. 4. Aspirin. 5. Keflex 500 mg by mouth 3 times a day. 6. B12. 7. Enoxaparin. 8. Digoxin. 9. Ferrous sulfate. 10. Insulin glargine. 11. Metoprolol. 12. Senna. 13. Tamsulosin. SOCIAL HISTORY: He lives at [facility], had been at [id number] before that. He is a nonsmoker. FAMILY HISTORY: Mother had a stroke. Father had [place] and diabetes. REVIEW OF SYSTEMS: All negative except as noted above to a 14-point review. PHYSICAL EXAM: Vitals: Temperature 37, heart rate 70, respiratory rate 16, blood pressure 136/54, oxygen saturation 95% on 1 L. In general, he is awake, not in distress. Neurologic: He is oriented x3. Follows commands. Moves all of his extremities. Sensation decreased to light touch in both feet. HEENT: There is no conjunctival hemorrhage. Oropharynx without lesions. Neck: Neck is supple without mass. Heart has regular rate and rhythm without murmurs, rubs , or gallops. Lungs are clear to auscultation bilaterally. Abdomen: Soft, nontender, nondistended. There are bowel sounds present. Skin: There is no rash or splinter hemorrhage. Musculoskeletal: There is no spine tenderness to palpation or joint synovitis. There is a left calcaneus ulceration with mildly foul odor, surrounding erythema, no purulent drainage. LAB DATA: Creatinine 1.6, white blood cell count 9, hemoglobin 7, platelets 306. Please see impression and recommendations outlined above. Thanks for asking me to see Mr. Thapa in consultation. [id number]/[facility] #: [id number] [facility] SYSTEMJewel
[2019-02-11 17:21] LABS: Hepatitis C Antibody Nonreactive (Nonreactive)
[2019-02-11] MEDS: Acetaminophen TAB* 325 MG PO PRN (20:55)
[2019-02-11] MEDS: Tamsulosin CAP* 0.4 MG PO SCH (20:56)
[2019-02-11] MEDS ORDERED: Enoxaparin(*) 40 MG/0.4 ML SYR SUBCUT SCH (21:00)
[2019-02-12] MEDS: Cephalexin CAP* 500 MG PO SCH ×2 (05:08→12:41)
[2019-02-12] MEDS: Insulin GLARGINE(*) 1 UNITS UNIT SUBCUT SCH (05:08)
[2019-02-12] MEDS: Insulin LISPRO* 1 UNITS UNIT SUBCUT SCH ×2 (07:38→12:41)
[2019-02-12] MEDS: Mometasone/Formoter 100/5 MDI INH SCH (08:08)
[2019-02-12] MEDS: Ascorbic Acid TAB* 500 MG PO SCH (09:36)
[2019-02-12] MEDS: Aspirin EC TAB* 81 MG TAB.EC PO SCH (09:36)
[2019-02-12] MEDS: Metoprolol Tartrate TAB* 50 mg PO SCH (09:36)
[2019-02-12] MEDS: Digoxin TAB* 0.125 MG PO SCH (09:36)
[2019-02-12] MEDS: Potassium Chlor TAB* 10 MEQ TAB.ER PO SCH (09:36)
[2019-02-12] MEDS: Ferrous Sulfate TAB* 325 MG PO SCH (09:37)
[2019-02-12] MEDS: Cyanocobalamin TAB* 500 MCG PO SCH (09:37)
--- NOTE | 2019-02-12 10:57 | PN ---
Progress Note - Progress Note Date of Service: 02/12/19 SOAP: Subjective: CC: Chronic left heel ulcer and left heel infection HPI: Mr. Thapa is a 63 yo male with PMH significant for DM2, osteomyelitis, CKD stage 3, Afib, HTN, COPD with chronic hypoxic respiratory failure on supplemental O2, and obesity. Denies fever, chills, shortness of breath, chest discomfort, N/V/D, or urinary symptoms. Reports a good appetite. Objective: Vital Signs - 8 hr 02/12/19 02/12/19 02/12/19 03:41 07:49 08:10 Temperature 98.3 F 97.4 F Pulse Rate 58 68 71 Respiratory 19 16 16 Rate Blood Pressure 145/59 133/59 (mmHg) O2 Sat by Pulse 100 98 99 Oximetry Physical Exam: General: NAD, laying in bed Neurological: Alert and Oriented x3 HEENT : Moist MM, no thrush Cardiovascular: Heart rate regular Respiratory: Lung sounds clear Abdominal: Bowel sounds present; ABD soft, non tender and non distended Skin: No rash. Dressing to left foot clean dry and intact, no erythema seen above the dressing Laboratory Last Values WBC 9.8 10^3/uL (3.5-10.8) 02/10/19 07:15 RBC 3.22 10^6 /uL (4.18-5.48) L 02/10/19 07:15 Hgb 7.7 g/dL (14.0-18.0) L 02/10/19 07:15 Hct 24 % (42-52) L 02/10/19 07:15 MCV 74 fL (80-94) L 02/10/19 07:15 MCH 24 pg (27-31) L 02/10/19 07:15 MCHC 32 g/dL (31-36) 02/10/19 07:15 RDW 16 % (10.5-15) H 02/10/19 07:15 Plt Count 306 10^3/uL (150-450) 02/10/19 07:15 MPV 7.2 fL (7.4-10.4) L 02/10/19 07:15 Neut % (Auto) 71.7 % 02/10/19 07:15 Lymph % (Auto) 16.8 % 02/10/19 07:15 [place] % (Auto) 5.7 % 02/10/19 07:15 Eos % (Auto) 5.2 % 02/10/19 07:15 Baso % (Auto) 0.6 % 02/10/19 07:15 Absolute Neuts (auto) 7.0 10^3/ul (1.5-7.7) 02/10/19 07:15 Absolute Lymphs (auto) 1.6 10^3/ul (1.0-4.8) 02/10/19 07:15 Absolute Monos (auto) 0.6 10^3/ul (0-0.8) 02/10/19 07:15 Absolute Eos (auto) 0.5 10^3/ul (0-0.6) 02/10/19 07:15 Absolute Basos (auto) 0.1 10^3/ul (0-0.2) 02/10/19 07:15 Absolute Nucleated RBC 0.0 10^3/ul 02/10/19 07:15 Nucleated RBC % 0.0 02/10/19 07:15 INR (Anticoag Therapy) 1.10 (0.82-1.09) H 02/06/19 15:00 APTT 28.8 seconds (26.0-36.3) 02/06/19 15:00 Sodium 138 mmol/L (135-145) 02/10/19 07:15 Potassium 4.0 mmol/L (3.5-5.0) 02/10/19 07:15 Chloride 103 mmol/L (101-111) 02/10/19 07:15 Carbon Dioxide 28 mmol/L (22-32) 02/10/19 07:15 Anion Gap 7 mmol/L (2-11) 02/10/19 07:15 BUN 24 mg/dL (6-24) 02/10/19 07:15 Creatinine 1.66 mg/dL (0.67-1.17) H 02/10/19 07:15 Est GFR ( Amer) 50.6 (>60) 02/10/19 07:15 Est GFR (Non-Af Amer) 41.8 (>60) 02/10/19 07:15 BUN/Creatinine Ratio 14.5 (8-20) 02/10/19 07:15 Glucose 162 mg/dL (70-100) H 02/10/19 07:15 POC Glucose (mg/dL) 129 mg/dL (70-100) H 02/12/19 07:35 Hemoglobin A1c 8.7 % (4.0-5.6) H 02/06/19 15:00 Lactic Acid 1.3 mmol/L (0.5-2.0) 02/06/19 22:42 Calcium 8.4 mg/dL (8.6-10.3) L 02/10/19 07:15 Total Bilirubin 0.30 mg/dL (0.2-1.0) 02/06/19 15:00 AST 6 U/L (13-39) L 02/06/19 15:00 ALT 5 U/L (7-52) L 02/06/19 15:00 Alkaline Phosphatase 65 U/L (34-104) 02/06/19 15:00 C-Reactive Protein 129.72 mg/L (<8.01) H 02/06/19 15:00 Total Protein 8.1 g/dL (6.4-8.9) 02/06/19 15:00 Albumin 3.3 g/dL (3.2-5.2) 02/06/19 15:00 Globulin 4.8 g/dL (2-4) H 02/06/19 15:00 Albumin/Globulin Ratio 0.7 (1-3) L 02/06/19 15:00 Urine Color Yellow 02/07/19 05:30 Urine Appearance Cloudy 02/07/19 05:30 Urine pH 5.0 (5-9) 02/07/19 05:30 Ur Specific [place] 1.011 (1.010-1.030) 02/07/19 05:30 Urine Protein 2+(100 mg/dl) (Negative) A 02/07/19 05:30 Urine Ketones Negative (Negative) 02/07/19 05:30 Urine Blood 1+ (Negative) A 02/07/19 05:30 Urine Nitrate Negative (Negative) 02/07/19 05:30 Urine Bilirubin Negative (Negative) 02/07/19 05:30 Urine Urobilinogen Negative (Negative) 02/07/19 05:30 Ur Leukocyte Esterase Negative (Negative) 02/07/19 05:30 Urine WBC (Auto) Trace(0-5/hpf) (Absent) 02/07/19 05:30 Urine RBC (Auto) 1+(3-5/hpf) (Absent) A 02/07/19 05:30 Urine Bacteria Absent (Absent) 02/07/19 05:30 Hyaline Casts Present (Absent) A 02/07/19 05:30 Urine Glucose 1+(50 mg/dl) (Negative) A 02/07/19 05:30 Hepatitis C Antibody Nonreactive (Nonreactive) 02/10/19 07:15 Hepatitis C Ab Index 0.3 Index 02/10/19 07:15 Microbiology 02/06/19 16:34 Aerobic Blood Culture - Final Blood Venous No Growth Day 5 Anaerobic Blood Culture - Final No Growth Day 5 02/06/19 15:00 Aerobic Blood Culture - Final Blood Venous No Growth Day 5 Anaerobic Blood Culture - Final No Growth Day 5 02/06/19 14:55 Skin and Soft Tissue MRSA/MSSA (PCR - Final Foot Left Mrsa Negative S.aureus Positive Gram Stain - Final Wound Culture - Final Staphylococcus Aureus 02/07/19 05:30 Urine Culture - Final Urine No Growth (<1,000 CFU/mL) Assessment: 1. Chronic left heel ulcer with cellulitis wound infection. No osteomyelitis on MRI. Wound culture with MSSA, has a history of MSSA infection in the past. 2. PCN allergy. Rash as a child. 3. DM2. 4. CKD, stage 3. Plan: Continue cephalexin 500 mg PO TID for a total of 14 days, day 2/14. Follow up in the ID office in 1-2 weeks.
[2019-02-12 13:05] VITALS: BP 141/59
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
== END 2019-02-12 16:15 | disposition home health service (06) | DRG 638 ==
LOC: ED 14:12 → MED 16:59
PROVIDERS: ADMIT Internal Medicine; ATTEND Internal Medicine
DX: E11.628 Type 2 diabetes mellitus with other skin complications (principal); L03.116 Cellulitis of left lower limb; J96.10 Chronic respiratory failure, unspecified whether with hypoxia or hypercapnia; E66.2 Morbid (severe) obesity with alveolar hypoventilation; I13.0 Hypertensive heart and chronic kidney disease with heart failure and stage 1 through stage 4 chronic kidney disease, or unspecified chronic kidney disease; I50.22 Chronic systolic (congestive) heart failure; L02.612 Cutaneous abscess of left foot; E11.51 Type 2 diabetes mellitus with diabetic peripheral angiopathy without gangrene; E11.621 Type 2 diabetes mellitus with foot ulcer; E11.22 Type 2 diabetes mellitus with diabetic chronic kidney disease; I48.91 Unspecified atrial fibrillation; F32.9 Major depressive disorder, single episode, unspecified; B95.61 Methicillin susceptible Staphylococcus aureus infection as the cause of diseases classified elsewhere; J44.9 Chronic obstructive pulmonary disease, unspecified; G89.29 Other chronic pain; M54.9 Dorsalgia, unspecified; N18.3 Chronic kidney disease, stage 3 (moderate); M85.872 Other specified disorders of bone density and structure, left ankle and foot; M46.96 Unspecified inflammatory spondylopathy, lumbar region; G47.30 Sleep apnea, unspecified; K44.9 Diaphragmatic hernia without obstruction or gangrene; E11.40 Type 2 diabetes mellitus with diabetic neuropathy, unspecified; D50.9 Iron deficiency anemia, unspecified; Z79.84 Long term (current) use of oral hypoglycemic drugs; Z79.51 Long term (current) use of inhaled steroids; Z99.81 Dependence on supplemental oxygen; Z68.34 Body mass index [BMI] 34.0-34.9, adult; Z88.0 Allergy status to penicillin; Z91.013 Allergy to seafood; Z98.42 Cataract extraction status, left eye; Z98.41 Cataract extraction status, right eye; Z79.82 Long term (current) use of aspirin; Z82.49 Family history of ischemic heart disease and other diseases of the circulatory system; Z83.3 Family history of diabetes mellitus; Z56.0 Unemployment, unspecified; Z87.891 Personal history of nicotine dependence; Z82.3 Family history of stroke; Z86.19 Personal history of other infectious and parasitic diseases
CPT/HCPCS: 36415; 80048; 80053; 81003; 81015; 83036; 83605; 85025; 85610; 85730; 86140; 86803; 87040; 87070; 87077; 87086; 87186; 87205; 87640; 87641; 93922; 94640; 99284; A9270-GY; G8987-GO-CI; G8988-GO-CI; G8989-GO-CI; G8990-GP-CH; G8991-GP-CH; G8992-GP-CH; J0692; J1644; J1650; J3370; J3490

== ENCOUNTER 2019-02-19 19:53 | Inpatient (IN) | payer MEDICARE, MEDICAID ==
[2019-02-19] MEDS ORDERED: NS 0.9% 1000 ML** 1,000 ML IV ONE (20:06)
[2019-02-19] MEDS ORDERED: Nitro 2% OINT* (Nitroglycerin) 1 INCH/PAK PAK TOPICAL ONE (20:06)
[2019-02-19] MEDS ORDERED: fentaNYL* 50 MCG/ML 2 ML VIAL (100 MCG VIAL) IV ONE (20:06)
[2019-02-19] MEDS ORDERED: Aspirin 81 mg CHEW TAB* 81 MG TAB.CHEW PO ONE (20:09)
[2019-02-19] MEDS ORDERED: Ondansetron INJ* 2 MG/ML VIAL IV ONE (20:09)
--- NOTE | 2019-02-19 20:13 | ED ---
HPI Chest Pain - HPI Summary HPI Summary: Patient is a 63 y/o M presenting to ED via EMS with complaints of chest pain. Sx onset around 1600 02/19/19 while he was in bed. He states that chest pain is right-sided and denies any left-sided chest pain. He endorses diaphoresis and fatigue but denies SOB. He reports Hx of similar episodes that were less severe and shorter than this present episode. Patient notes that he was not evaluated for previous episodes of Sx. EMS was called, EMS administered nitro and ASA but patient is reported to have vomited medications. PMHx of diabetes, CHF, HTN, pulmonary edema, COPD. FMHx of cardiac disease, HTN, diabetes. Patient never smoked tobacco, no substance or alcohol usage. On triage, pain is rated 2/10, sitting forward is noted to alleviate Sx, nothing reported to aggravate. Home medications and allergies are reviewed. - History of Current Complaint Chief Complaint: EDChestPainROMI Time Seen by Provider: 02/19/19 20:01 Hx Obtained From: Patient Onset/Duration: Started Hours Ago - onset 1600 02/19/19, Still Present Timing: Constant, Lasting Hours - onset 159902/19/19 Current Severity: Mild Pain Intensity: 2 Pain Scale Used: 0-10 Numeric Chest Pain Location: Right Anterior Aggravating Factor(s): Nothing Alleviating Factor(s): Position - sitting forward Associated Signs and Symptoms: Positive: Chest Pain, Diaphoresis, Vomiting, Other: - fatigue. Negative: Shortness of Breath - Additional Pertinent History Primary Care Physician: [email or web address] - Allergy/Home Medications Allergies/Adverse Reactions: Allergies Allergy/AdvReac Type Severity Reaction Status Date / Time shellfish derived Allergy Severe lips Verified 02/06/19 14:20 swell, itchy Penicillins Allergy Intermediate Rash Verified 02/06/19 14:20 PMH/Surg Hx/FS Hx/Imm Hx Endocrine/Hematology History: Reports: Hx Anticoagulant Therapy - baby aspirin 1 /day, Hx Diabetes, Hx Anemia - TAKING IRON Cardiovascular History: Reports: Hx Congestive Heart Failure - Systolic HF, Hx Hypertension Denies: Hx Myocardial Infarction, Hx Pacemaker/ICD Respiratory History: Reports: Hx Chronic Obstructive Pulmonary Disease (COPD) - 2L O2, Hx Pulmonary Edema, Hx Sleep Apnea Denies: Hx Asthma GI History: Reports: Hx Hiatal Hernia - 25 years, Other GI Disorders - has some small gall stones- no issues History: Denies: Hx Dialysis, Hx Renal Disease Musculoskeletal History: Reports: Hx Arthritis - mild L4-L5, Other Musculoskeletal History - osteomyalgia bilateral foot Sensory History: Reports: Hx Cataracts Denies: Hx Contacts or Glasses, Hx Legally Blind, Hx Deafness, Hx Hearing Aid Opthamlomology History: Reports: Hx Cataracts Denies: Hx Contacts or Glasses, Hx Legally Blind Neurological History: Reports: Hx Nerve Disease - bilat neuropathy Denies: Hx Dementia, Hx Headaches Psychiatric History: Reports: Hx Depression Denies: Hx Anxiety, Hx Panic Disorder - Surgical History Surgery Procedure, Year, and Place: dental - teeth removed - sedated, cataracts Hx Anesthesia Reactions: No - Immunization History Date of Tetanus Vaccine: Unk Date of Influenza Vaccine: 07/2018 Infectious Disease History: No Infectious Disease History: Denies: Traveled Outside the [place] in Last 30 Days - Family History Known Family History: Positive: Cardiac Disease, Hypertension, Diabetes - Social History Alcohol Use: None Hx Substance Use: No Substance Use Type: Reports: None Hx Tobacco Use: No Smoking Status (MU): Never Smoked Tobacco Amount Used/How Often: only smoked 2 years - never inhaled Have You Smoked in the Last Year: No Review of Systems Positive: Fatigue, Skin Diaphoresis Positive: Chest Pain Negative: Shortness Of Breath Positive: Vomiting All Other Systems Reviewed And Are Negative: Yes Physical Exam - Summary Physical Exam Summary: Appearance: Ill-appearing, Well-nourished, lying in bed Skin: Pale, skin is cool and diaphoretic Eyes: sclera anicteric, no conjunctival pallor ENT: mucous membranes moist, pharynx appears normal Neck: Supple, nontender Respiratory: Clear to auscultation, no signs of respiratory distress Cardiovascular: Normal S1, S2. No murmurs. Normal distal pulses in tibial and radial bilaterally. Abdomen: Soft, nontender, normal active bowel sounds present Musculoskeletal: Normal, Strength/ROM Intact Neurological: A&Ox3, awake and alert, mentation is normal, speech is fluent and appropriate Psychiatric: affect is normal, does not appear anxious or depressed Triage Information Reviewed: Yes Vital Signs On Initial Exam: Initial Vitals Temp Pulse Resp BP Pulse Ox 96.7 F 72 12 146/65 97 02/19/19 19:54 02/19/19 19:54 02/19/19 19:54 02/19/19 19:54 02/19/19 19:54 Vital Signs Reviewed: Yes Diagnostics - Vital Signs Vital Signs Temp Pulse Resp BP Pulse Ox 02/19/19 19:54 96.7 F 72 12 146/65 97 - Laboratory Result Diagrams: 02/19/19 20:07 02/19/19 20:07 Lab Statement: Any lab studies that have been ordered have been reviewed, and results considered in the medical decision making process. - Radiology CXR Radiology Interpretation Completed By: ED Physician Summary of Radiographic Findings: No acute process, pending official report. - CT CTA CHEST/THORAX CT Interpretation Completed By: Radiologist Summary of CT Findings: CTA CHEST/THORAX IMPRESSION: 1. There are new patchy nodular opacities mainly in the right upper lobe, the. largest measuring a maximum of [address] at 3-6 months. Subsequent. management based on the most suspicious nodule(s). (John et al.,. Fleischner Society, 2017). 2. Stable mediastinal lymphadenopathy. 3. No visible acute pulmonary embolism. THIS REPORT WAS REVIEWED BY DR. SHERIDAN - EKG 1956 Cardiac Rate: NL - rate of 71 BPM EKG Rhythm: Sinus Rhythm Summary of EKG Findings: EKG showed sinus rhythm with rate of 71 BPM, old inferior and anterior infracts, no STEMI. Re-Evaluation - Re-Evaluation First Eval Re-Evaluation Time: 22:44 Comment: Results of labs and tests were discussed with patient, he is agreeable with admission. Chest Pain Course/Dx - Course Course Of Treatment: Patient is a 63 y/o M presenting to ED via EMS with complaints of chest pain. Sx onset around 1600 02/19/19 while he was in bed. He states that chest pain is right-sided and denies any left-sided chest pain. He endorses diaphoresis and fatigue but denies SOB. He reports Hx of similar episodes that were less severe and shorter than this present episode. Patient notes that he was not evaluated for previous episodes of Sx. EMS was called, EMS administered nitro and ASA but patient is reported to have vomited medications. PMHx of diabetes, CHF, HTN, pulmonary edema, COPD. FMHx of cardiac disease, HTN, diabetes. On physical, patient is ill-appearing, Pale, skin is cool and diaphoretic. EKG showed sinus rhythm with rate of 71 BPM, old inferior and anterior infracts, no STEMI. CXR showed no acute process. Labs showed WBC 13.6, RBC 3.91, Hgb 9.1, Hct 29, MCV 74, MCH 23, RDW 17, MPV 7.1, absolute neuts 11.3, chloride 99, BUN 30, creatinine 1.39, BUN/creatinine 20.1, glucose 210, lactic acid first was 1.1, second 0.8, AST 90, CRP 68.55, globulin 5.2, albumin/globulin ratio 0.7. Digoxin was 1.3. First trop was 0.03, second 0.03. D-dimer was 600. CTA CHEST/THORAX IMPRESSION: 1. There are new patchy nodular opacities mainly in the right upper lobe, the. largest measuring a maximum of [address] at 3-6 months. Subsequent. management based on the most suspicious nodule(s). (John et al.,. Fleischner Society, 2017). 2. Stable mediastinal lymphadenopathy. 3. No visible acute pulmonary embolism. During ED course, patient received fluids, Zofran 8 mg IV, nitroglycerin 2% oint 1 inch topical, fentanyl 50 mcg IV x3, ASA 324 mg PO. Results of labs and tests were discussed with patient, he is agreeable with admission. Patient's case was discussed with Dr. Dudley, Dr. Dudley accepts for admission. - Diagnoses Provider Diagnoses: Chest pain - Provider Notifications Discussed Care Of Patient With: Shakira Dudley Time Discussed With Above Provider: 23:12 Instructed by Provider To: Other - Patient's case was discussed with Dr. Dudley, Dr. Dudley accepts for admission. Discharge - Sign-Out/Discharge Documenting (check all that apply): Patient Departure - admit Patient Received Moderate/Deep Sedation with Procedure: No - Discharge Plan Condition: Good Disposition: ADMITTED TO [facility] - Billing Disposition and Condition Condition: GOOD Disposition: Admitted to [facility] - Attestation Statements Document Initiated by Scribe: Yes Documenting Scribe: DREW KAPOOR Provider For Whom Scribe is Documenting (Include Credential): IRENE SHERIDAN MD Scribe Attestation: DREW Perea, scribed for IRENE SHERIDAN MD on 05/23/19 at 0327. Scribe Documentation Reviewed: Yes Provider Attestation: The documentation as recorded by the scribe, DREW KAPOOR accurately reflects the service I personally performed and the decisions made by me, IRENE SHERIDAN MD Status of Olivia Document: Viewed
[2019-02-19 20:28] LABS: ABS Eosinophils 0.5 10^3/ul (0-0.6); ABS Lymphocytes 1.3 10^3/ul (1.0-4.8); ABS Monocytes 0.5 10^3/ul (0-0.8); ABS Neutrophils 11.3 10^3/ul (1.5-7.7); Eosinophil % 3.9 %; Hematocrit 29 % (42-52); Hemoglobin 9.1 g/dL (14.0-18.0); Lymphocyte % 9.7 %; Mean Corpuscular HGB Conc 31 g/dL (31-36); Mean Corpuscular Hemoglobin 23 pg (27-31); Mean Corpuscular Volume 74 fL (80-94); Mean Platelet Volume 7.1 fL (7.4-10.4); Platelet Count 367 10^3/uL (150-450); Red Blood Count 3.91 10^6 /uL (4.18-5.48); Red Cell Distribution Width 17 % (10.5-15); White Blood Count 13.6 10^3/uL (3.5-10.8)
[2019-02-19 20:31] LABS: INR 1.03 (0.82-1.09)
[2019-02-19 20:37] LABS: Albumin 3.4 g/dL (3.2-5.2); Albumin/Globulin Ratio 0.7 (1-3); BUN/Creatinine Ratio 20.1 (8-20); Calcium 9.1 mg/dL (8.6-10.3); EGFR African American 57.3 (>60); EGFR Non-African American 47.3 (>60); Globulin 5.2 g/dL (2-4); Total Bilirubin 0.9 mg/dL (0.2-1.0); Total Protein 8.6 g/dL (6.4-8.9)
[2019-02-19 20:38] LABS: Troponin I 0.03 ng/mL (<0.04)
[2019-02-19] MEDS ORDERED: Iodixanol* (CONTRAST) 320 MG/ML 100 ML SDV IV ONE (21:18)
[2019-02-19] MEDS: fentaNYL* 50 MCG/ML 2 ML VIAL (100 MCG VIAL) IV PRN ×2 (22:11→23:40)
[2019-02-19 23:26] LABS: Troponin I 0.03 ng/mL (<0.04)
[2019-02-19] MEDS ORDERED: fentaNYL* 50 MCG/ML 2 ML VIAL (100 MCG VIAL) IV SLOW PU PRN (23:38)
[2019-02-20 00:13] LABS: C Reactive Protein 68.44 mg/L (<8.01)
[2019-02-20 00:28] LABS: Digoxin 1.3 ng/ml (0.8-2.0)
[2019-02-20] MEDS: fentaNYL* 50 MCG/ML 2 ML VIAL (100 MCG VIAL) IV PRN (01:19)
[2019-02-20] MEDS ORDERED: Docusate CAP* 100 MG PO PRN (01:51)
[2019-02-20] MEDS ORDERED: oxyCODONE/Acetamin 5/325 MG* TAB PO PRN (01:51)
[2019-02-20] MEDS ORDERED: Morphine INJ* 2 MG/ML 1 ML SYRINGE (TWO MG - NEW SYRINGE VERSION) IV PRN (01:51)
[2019-02-20] MEDS ORDERED: Senna TAB PO PRN (01:51)
[2019-02-20] MEDS ORDERED: Al Hydrox/Mg Hydrox/Simet LIQ* 30 ML UDC PO PRN (01:51)
[2019-02-20] MEDS ORDERED: Ondansetron INJ* 2 MG/ML VIAL IV PRN (01:51)
--- NOTE | 2019-02-20 01:51 | PN ---
Progress Note - Progress Note Date of Service: 02/20/19 Note: CT scan of abdominal unremarkable. Repeat eval - Patient's color is improved. Now sleeping. Wakes easily - states he feels slightly better. Still pain along right side into abdomen. Will admit - obtain U/S to R/O GB disease, repeat labs, NPO, IVFs
[2019-02-20] MEDS ORDERED: LORazepam TAB(*) 0.5 MG PO PRN (01:55)
[2019-02-20] MEDS ORDERED: Albuterol HFA INHALER* 8 gm MDI INH PRN (01:56)
--- NOTE | 2019-02-20 02:55 | CONS ---
CC: Rosmery Fisher MD* CONSULTATION REPORT: DATE OF CONSULT: 02/19/19 TIME OF EVALUATION: 4610 PRIMARY CARE PHYSICIAN: Rosmery Fisher MD. CHIEF COMPLAINT: Right-sided chest pain and abdominal pain. HISTORY OF PRESENT ILLNESS: This is a 63-year-old male with multiple comorbidities who was recently admitted from 02/06/19 to 02/12/19 for chronic left heel ulcer and wound. Also, with a history of COPD; on 1 L, diabetes, hypertension, atrial fibrillation who presents to the emergency room with acute onset of right-sided pain, now with diffuse abdominal pain. The patient states around 4:00 p.m. this afternoon, he developed right-sided chest pain that has since radiated all the way across his abdomen. He has had nausea, vomiting, was diaphoretic. He called EMS. On arrival to the emergency room, they noted he was guerrero and diaphoretic and clammy. Because of his right-sided chest pain, there was concern for a cardiac or a pulmonary issue. He had a CTA done that showed pulmonary nodules that need to be followed up, but otherwise negative. On my encounter, the patient remains ill- appearing, pale, diaphoretic, and now with diffuse abdominal pain. He has had nausea and vomiting all day. He states he did have a normal bowel movement this afternoon, but has since not been able to pass any gas and no further bowel movements. He has never had symptoms like this before. He has never had abdominal surgery in the past. He denies any shortness of breath. No cough. He states he has been subjectively warm with chills. He has lost some weight since the fall; he is not sure how much. No recent medication changes since his discharge on 02/12/19. Otherwise , remaining review of systems is negative. In the emergency room, the patient was given 1 L of fluid, Zofran 8 mg, an inch of Nitro paste, a total of 100 mcg of fentanyl and is still complaining of significant abdominal pain, moaning in discomfort. PAST MEDICAL HISTORY: 1. As mentioned, on admission from 02/06/19 to 02/12/19 for cellulitis of a chronic left ulcer. 2. Diabetes. 3. Hypertension. 4. Atrial fibrillation. 5. COPD, on 1 L. 6. Iron deficiency anemia. 7. CKD. PAST SURGICAL HISTORY: None. MEDICATIONS: 1. Keflex 500 mg every 8 hours. His last day will be today, 02/20/19. 2. Aspirin 81 mg daily. 3. Digoxin 0.125 mg daily. 4. Metformin 500 mg p.o. b.i.d. 5. Tamsulosin 0.4 mg p.o. daily. 6. Potassium chloride 10 mEq daily. 7. Metoprolol tartrate 50 mg p.o. b.i.d. 8. Lorazepam 0.5 mg every 8 hours as needed for anxiety. 9. Lantus 25 units b.i.d. 10. Vitamin B12 at 1000 mcg daily. 11. Ferrous sulfate 325 mg daily. 12. Vitamin C 500 mg daily. 13. Albuterol 2 puffs every 6 hours as needed for shortness of breath. 14. Symbicort 1 puff b.i.d. ALLERGIES: SHELLFISH and PENICILLIN. FAMILY HISTORY: Mother had from history of CVA. Father with history of RI. SOCIAL HISTORY: The patient states he lives alone. He is independent of ADLs. No history of alcohol, smoking, or illicit drug use. When asked who is his healthcare proxy, he states he has no one, no family or friends that he would designate. Code status, full code. REVIEW OF SYSTEMS: A 14-point review of systems as mentioned in the HPI; otherwise, negative. PHYSICAL EXAM: Vitals: Temperature 96.7, pulse rate is 66, respiratory rate is 18, oxygen saturation is 97% on 2 L, blood pressure 148/94. General: Pale, ill- appearing male, moaning in discomfort. HEENT: Head normocephalic. Pupils equal and reactive, anicteric. Oropharynx: Mucous membranes are dry. Neck: Supple. No lymphadenopathy. Cardiac: Regular rate and rhythm. Soft systolic murmur heard throughout. Respiratory: Diminished breath sounds. No wheezes, rhonchi, or rales. Abdomen: Absent bowel sounds. Distended. Diffuse tenderness. No rebound or guarding. Extremities: Trace pretibial edema, +1 DPs. Neurologic: Alert and oriented x3. No gross focal neurologic deficits. DIAGNOSTIC STUDIES/LAB DATA: Laboratory Data: White count 13.6, hemoglobin 9.1 , hematocrit 29, platelets 367. D-dimer is 600. Sodium 138, potassium 5, chloride 99, bicarb 31, BUN 30, creatinine 1.49, glucose 210. AST is 90, total bili is 0.9, ALT is 16. Troponin 0.03; repeat is 0.03. Radiographic Data: CTA of the chest shows there are new patchy nodular opacities mainly in the right upper lobe, the largest measuring a maximum of [address] at 3 to 6 months. Stable mediastinal lymphadenopathy. No acute PE. EKG shows normal sinus rhythm, no significant ST changes. ASSESSMENT AND PLAN: This is a 63-year-old male with past medical history of diabetes, atrial fibrillation, chronic obstructive pulmonary disease; on 1 L who presents to the emergency room with acute onset of right-sided chest pain and abdominal pain. 1. Right-sided chest pain and abdominal pain. Assessment: I am concerned for his abdominal findings and how ill-appearing he is, concern for bowel obstruction versus perforation, could also be acute mesenteric ischemia. Plan: Discussed with Dr. Clement prior to admitting this patient. The patient needs further workup for his abdominal pathology in the setting of how acutely ill-appearing he is prior to admitting to medicine service. Abdominal flat plate and CAT scan have been since ordered. We will continue his fentanyl for pain. Continue him n.p.o. on IV fluids. If the patient's abdominal workup is unremarkable, we will admit him for further evaluation of his abdominal pain, consider GI versus surgery consultation. 2. Chronic medical problems. We will keep the patient n.p.o. for now in the setting of his abdominal distention and pain and order his medications once his acute abdomen has been ruled out. 3. Code status. Full code. Dr. Clement is aware. He is going to do further workup prior to hospitalist admission. PATIENT TIME: Greater than 45 minutes was spent doing the history and physical , more than half the time spent in direct patient contact. ADDENDUM: Consultation note changed to History & Physical Abd/Pelvis CT scan unremarkable. Improved abdominal discomfort on re- evaluation Will admit - repeat CMP, CBC and obtain Ultrasound of RUQ to evaluation GB disease [id number]/[facility] #: [id number] [facility]ITAL[facility]
[2019-02-20] MEDS: Lactated Ringers 1000 ML Bag* 1,000 ML IV SCH ×2 (03:06→13:01)
[2019-02-20] MEDS: Insulin GLARGINE(*) 1 UNITS UNIT SUBCUT SCH (03:08)
[2019-02-20] MEDS: Acetaminophen TAB* 325 MG PO PRN (03:09)
[2019-02-20] MEDS ORDERED: Cephalexin CAP* 500 MG PO SCH (06:00)
[2019-02-20] MEDS: Heparin VIAL(*) 5000 UNITS/ML VIAL (FIVE THOUSAND) SUBCUT SCH ×3 (06:21→22:23)
[2019-02-20 06:27] LABS: ABS Basophils 0.1 10^3/ul (0-0.2); ABS Eosinophils 0.2 10^3/ul (0-0.6); ABS Lymphocytes 1.2 10^3/ul (1.0-4.8); ABS Monocytes 0.6 10^3/ul (0-0.8); ABS Neutrophils 11.1 10^3/ul (1.5-7.7); Eosinophil % 1.8 %; Hematocrit 27 % (42-52); Hemoglobin 8.2 g/dL (14.0-18.0); Lymphocyte % 8.8 %; Mean Corpuscular HGB Conc 31 g/dL (31-36); Mean Corpuscular Hemoglobin 23 pg (27-31); Mean Corpuscular Volume 75 fL (80-94); Mean Platelet Volume 6.9 fL (7.4-10.4); Platelet Count 302 10^3/uL (150-450); Red Cell Distribution Width 17 % (10.5-15); White Blood Count 13.1 10^3/uL (3.5-10.8)
[2019-02-20 06:49] LABS: Albumin 3.2 g/dL (3.2-5.2); Albumin/Globulin Ratio 0.7 (1-3); BUN/Creatinine Ratio 21.2 (8-20); Calcium 8.5 mg/dL (8.6-10.3); EGFR African American 58.6 (>60); EGFR Non-African American 48.5 (>60); Globulin 4.5 g/dL (2-4); Potassium 4.6 mmol/L (3.5-5.0); Total Bilirubin 1.2 mg/dL (0.2-1.0); Total Protein 7.7 g/dL (6.4-8.9)
[2019-02-20] MEDS: Mometasone/Formoter 200/5 MDI INH SCH ×2 (08:08→19:59)
[2019-02-20] MEDS: Aspirin 81 mg CHEW TAB* 81 MG TAB.CHEW PO SCH (09:47)
[2019-02-20] MEDS: Metoprolol Tartrate TAB* 50 mg PO SCH ×2 (09:47→20:46)
[2019-02-20] MEDS ORDERED: metroNIDAZOLE IV 250 MG/50ML* 50 ML IVPB SCH (12:00)
[2019-02-20] MEDS: Cefepime 1 GM in Dextrose(*) 1 GM/50 ML BAG IV SCH (13:02)
[2019-02-20] MEDS: metroNIDAZOLE IV 500 MG/100ML* 500 MG/100 ML BAG IVPB SCH ×2 (13:40→19:48)
[2019-02-20] MEDS: Digoxin TAB* 0.125 MG PO SCH (16:12)
[2019-02-20] MEDS: Nystatin TOP POWDER* 15 GM BTL TOPICAL SCH ×2 (16:13→20:50)
[2019-02-20] MEDS: Finasteride TAB* 5 MG PO SCH (17:11)
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
[2019-02-20 18:51] LABS: Urine Appearance Cloudy; Urine Bacteria Absent (Absent); Urine Bilirubin Negative (Negative); Urine Blood Negative (Negative); Urine Color Amber; Urine Glucose 1+(50 mg/dL) (Negative); Urine Granular Casts Present (Absent); Urine Ketones Negative (Negative); Urine Nitrite Negative (Negative); Urine Protein 2+(100 mg/dL) (Negative); Urine Red Blood Cell 1+(3-5/hpf) (Absent); Urine Specific Gravity 1.026 (1.010-1.030); Urine Urobilinogen Negative (Negative); Urine White Blood Cell Trace(0-5/hpf) (Absent)
[2019-02-20] MEDS: Tamsulosin CAP* 0.4 MG PO SCH (20:45)
[2019-02-21] MEDS: Insulin GLARGINE(*) 1 UNITS UNIT SUBCUT SCH (02:44)
--- NOTE | 2019-02-21 02:59 | PN ---
Progress Note - Progress Note Date of Service: 02/21/19 Note: Paged for PVR > 300. Patient again refusing straight cath or zamora catheter
[2019-02-21] MEDS: Lactated Ringers 1000 ML Bag* 1,000 ML IV SCH (03:39)
[2019-02-21] MEDS: metroNIDAZOLE IV 500 MG/100ML* 500 MG/100 ML BAG IVPB SCH ×3 (03:41→20:32)
[2019-02-21] MEDS: Heparin VIAL(*) 5000 UNITS/ML VIAL (FIVE THOUSAND) SUBCUT SCH ×3 (05:46→22:21)
[2019-02-21 05:51] LABS: ABS Eosinophils 0.6 10^3/ul (0-0.6); ABS Lymphocytes 1.5 10^3/ul (1.0-4.8); ABS Monocytes 0.4 10^3/ul (0-0.8); ABS Neutrophils 5.9 10^3/ul (1.5-7.7); Eosinophil % 6.7 %; Hematocrit 25 % (42-52); Lymphocyte % 17.4 %; Mean Corpuscular HGB Conc 32 g/dL (31-36); Mean Corpuscular Hemoglobin 24 pg (27-31); Mean Corpuscular Volume 75 fL (80-94); Mean Platelet Volume 6.8 fL (7.4-10.4); Platelet Count 291 10^3/uL (150-450); Red Cell Distribution Width 18 % (10.5-15); White Blood Count 8.3 10^3/uL (3.5-10.8)
[2019-02-21 06:11] LABS: Albumin/Globulin Ratio 0.7 (1-3); BUN/Creatinine Ratio 18.3 (8-20); Calcium 8.2 mg/dL (8.6-10.3); EGFR African American 55.5 (>60); EGFR Non-African American 45.9 (>60); Globulin 4.3 g/dL (2-4); Magnesium 1.7 mg/dL (1.9-2.7); Potassium 4.3 mmol/L (3.5-5.0); Total Bilirubin 1.7 mg/dL (0.2-1.0); Total Protein 7.3 g/dL (6.4-8.9)
[2019-02-21] MEDS ORDERED: Magnesium Sulfate IV* 3 GM in NS 0.9% 100 ML* 100 ML IVPB ONE (07:22)
[2019-02-21] MEDS ORDERED: NS 0.9% 100 ML* 100 ML ONE (08:08)
[2019-02-21] MEDS: Nystatin TOP POWDER* 15 GM BTL TOPICAL SCH ×3 (08:21→20:33)
[2019-02-21] MEDS: Metoprolol Tartrate TAB* 50 mg PO SCH ×2 (08:21→20:33)
[2019-02-21] MEDS: Finasteride TAB* 5 MG PO SCH (08:21)
[2019-02-21] MEDS: Aspirin 81 mg CHEW TAB* 81 MG TAB.CHEW PO SCH (08:21)
[2019-02-21] MEDS: Mometasone/Formoter 200/5 MDI INH SCH ×2 (09:19→19:58)
[2019-02-21] MEDS: Cefepime 1 GM in Dextrose(*) 1 GM/50 ML BAG IV SCH (11:33)
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
--- NOTE | 2019-02-21 17:12 | PN ---
Progress Note - Progress Note Date of Service: 02/21/19 Note: Surgery brief note (full consult dictated): S: 60 yo male w/ cholelithiasis, admitted 02/19 w/ Right sided chest and abdominal pain. Workup has included chest CTA (neg for PE), CT A&P w/o contrast (neg other than for umbilical and L inguinal hernias), GB US positive for stones and dilated CBD at 1.4 cm, and wall thickening at 3 mm; and MRCP confirming CBD dilatation but no filling defects; poss small stone in cystic duct. He feels better today (rates current pain at 0.5/10). He tolerated clear liquids this a.m. He is currently being tx'd w/ cefipime and metronidazole. Current Medications Acetaminophen (Tylenol Tab*) 650 mg PO Q4H PRN PRN Reason: FEVER/PAIN Last Admin: 02/20/19 03:09 Dose: 650 mg Al Hydrox/Mg Hydrox/Simethicone (Maalox Plus*) 30 ml PO Q6H PRN PRN Reason: INDIGESTION Albuterol (Ventolin Hfa Inhaler*) 2 puff INH Q4H PRN PRN Reason: SOB/WHEEZING Digoxin (Lanoxin Tab*) 0.125 mg PO 1700 [facility] Last Admin: 02/20/19 16:12 Dose: 0.125 mg Docusate Sodium (Colace Cap*) 100 mg PO BID PRN PRN Reason: CONSTIPATION Finasteride (Proscar Tab*) 5 mg PO DAILY [facility] Last Admin: 02/21/19 08:21 Dose: 5 mg Heparin Sodium (Porcine) (Heparin Vial(*)) 5,000 units SUBCUT Q8HR [facility] Last Admin: 02/21/19 14:57 Dose: 5,000 units Cefepime HCl (Maxipime 1 Gm In Dextrose Duplex (*)) 1 gm in 50 mls @ 100 mls/ hr IV Q24H [facility] Last Admin: 02/21/19 11:33 Dose: 100 mls/hr Metronidazole/Sodium Chloride (Flagyl 500 Mg Ivpb*) 500 mg in 100 mls @ 100 mls /hr IVPB Q8H [facility] Last Admin: 02/21/19 12:24 Dose: 100 mls/hr Insulin Glargine (Lantus(*)) 25 units SUBCUT Q24H [facility] Last Admin: 02/21/19 02:44 Dose: 25 units Lorazepam (Ativan Tab(*)) 0.5 mg PO Q6H PRN PRN Reason: ANXIETY Metoprolol Tartrate (Lopressor Tab*) 50 mg PO Q12HR [facility] Last Admin: 02/21/19 08:21 Dose: 50 mg Mometasone Furoate/Formoterol Fumar (Dulera 200/5 Mdi*) 2 puff INH BID [facility]; Protocol Last Admin: 02/21/19 09:19 Dose: 2 puff Morphine Sulfate (Morphine Inj (Syringe))*) 2 mg IV Q4H PRN PRN Reason: PAIN - MILD Nystatin (Nystatin Top Powder*) 1 applic TOPICAL TID [facility] Last Admin: 02/21/19 14:58 Dose: 1 dose Ondansetron HCl (Zofran Inj*) 4 mg IV Q4H PRN PRN Reason: NAUSEA/VOMITING Oxycodone/Acetaminophen (Percocet 5/325 Tab*) 1 tab PO Q4H PRN PRN Reason: Pain Senna (Senokot Tab*) 1 tab PO BID PRN PRN Reason: CONSTIPATION Tamsulosin HCl (Flomax Cap*) 0.4 mg PO BEDTIME [facility] Last Admin: 02/20/19 20:45 Dose: 0.4 mg O: Vital Signs - 8 hr 02/21/19 12:06 Temperature 97.6 F Pulse Rate 66 Respiratory 20 Rate Blood Pressure 136/58 (mmHg) O2 Sat by Pulse 100 Oximetry Gen: WN, obese male in NAD Heart: reg Lungs: clear Abd: umb hernia (nontender but not readily reducible); LIH (nontender to palp); very mild RUQ tenderness to deep palp Labs: Laboratory Tests 02/19/19 02/20/19 02/20/19 20:07 06:18 06:18 WBC 13.6 H 13.1 H Hgb 9.1 L 8.2 L BUN Creatinine Glucose Magnesium Total Bilirubin 1.20 H AST 131 H ALT 30 Alkaline Phosphatase 87 02/21/19 02/21/19 05:42 05:42 WBC 8.3 Hgb 8.0 L BUN 28 H Creatinine 1.53 H Glucose 95 Magnesium 1.7 L Total Bilirubin 1.70 H AST 170 H ALT 58 H Alkaline Phosphatase 174 H A: cholelithiasis w/ cholecystitis (no choledocholithiais), improving P: I discussed with him the indications for surgery, which he seems to meet, especially with 3 episodes within the past 4 wks. At this point there is no indication that surgery needs to be done urgently. He does have significant cardiac risk factors as well as his other comorbidities, including his chronic lung dz, DM, renal insufficiency, and chronic anemia. Case was discussed w/ Will EDWIGE Stern and my attending, Dr. Hope. Scheduling for surgery will be deferred until medical/cardiac w/u is complete. I have scheduled him with Dr. Mason in our office on February 26 at 1:00 if he in no longer in the hospital. Surgery could potentially be as soon as the next day, pending above w/u.
[2019-02-21] MEDS: Digoxin TAB* 0.125 MG PO SCH (18:43)
--- NOTE | 2019-02-21 19:28 | CONS ---
CC: Dr. Rosmery Fisher, [facility]* SURGICAL CONSULT NOTE: DATE OF CONSULT: 02/21/19 ATTENDING SURGEON: Dr. Nitish Hope. CHIEF COMPLAINT: Abdominal pain. HISTORY OF PRESENT ILLNESS: This is a 63-year-old male with multiple medical problems, who was admitted on 02/19/19 after fairly abrupt onset of right-sided chest and abdominal pain around 4 p.m. that afternoon. He describes deep numbing pain radiating down his right side including the lower right chest and abdomen with associated nausea, vomiting, and diaphoresis. He denies shortness of breath. Pain persisted and he was brought to the emergency department. CTA was obtained to rule out PE and was negative except for some right-sided pulmonary nodules with recommended followup. This was communicated directly to the patient. He has had prior similar symptoms about 1 month ago and 2 weeks ago, both of which resolved on their own without further intervention. He has never had any abdominal surgeries. His family history is positive for gallbladder disease. He has never had a colonoscopy. PAST MEDICAL HISTORY: Significant for chronic lung disease (O2 dependent); type 2 diabetes; hypertension; obesity; atrial fibrillation on 2 occasions, though he has been in sinus rhythm since the current admission, he is not anticoagulated because of chronic iron-deficiency anemia, which has not been worked up at least from a GI standpoint. His EKGs do show Q waves indicating possible old infarct. He also has a past history of CHF with significantly decreased ejection fraction, though with improvement on subsequent echocardiograms and most recent being from 2018. He has chronic kidney disease , which has been stable. The patient was recently admitted from 02/06/19 to for treatment of a left heel decubitus. PAST SURGICAL HISTORY: His only prior surgeries have been dental extractions. MEDICATIONS: Home medications include: 1. Oxygen at 1 L per nasal cannula. 2. Keflex, which he was completing for recent left heel infection. 3. Aspirin 81 mg daily. 4. Digoxin. 5. Metformin. 6. Lantus 25 units b.i.d. 7. Tamsulosin. 8. Potassium chloride. 9. Metoprolol. 10. Ferrous sulfate. 11. Vitamin C. 12. Symbicort. Current hospital medications include: 1. IV cefepime. 2. Metronidazole. DRUG ALLERGIES: Include SHELLFISH (itching and lip swelling), PENICILLIN (rash) . FAMILY HISTORY: Negative for anesthesia problems, bleeding or clotting disorders. SOCIAL HISTORY: The patient lives alone. He denies use of tobacco, alcohol, or recreational drugs. REVIEW OF SYSTEMS: General: No other acute illnesses or problems other than described in the HPI. HEENT: He is edentulous. No other problems reported. Cardiovascular: As above. No chest pain recently. His episodes of apparent paroxysmal atrial fibrillation were asymptomatic. Respiratory: No chronic cough or increased shortness of breath above his baseline. No shortness of breath associated with the acute present illness. GI: As above per HPI. He states that his bowel movements have been normal. He has never undergone screening colonoscopy, though did do Cologuard testing within the past year. : He has increased urinary frequency and typically nocturia x2. During this admission, he has been noted to have postvoid residuals of greater than 300 cc, but has refused catheterization. Endocrine: Type 2 diabetes. He states that his most recent A1c was 5.8. His lab glucoses and fingersticks here in the hospital have been within acceptable range. Musculoskeletal: He is nonweightbearing while his left heel is healing, but does transfer himself to a wheelchair, which is how he handles mobility. He states that the left heel wound is being dressed with a Telfa pad only and Kerlix as well as nonweightbearing. A visiting nurse has been doing this 3 times a week at home and he does attend [facility]. Hematological: Chronic anemia. I did not investigate his background workup of the anemia, but by history it is iron deficiency. PHYSICAL EXAM: Height 6 feet 2 inches, weight 274 pounds, BMI 35, temperature 97.7, blood pressure 151/61, pulse 67, respirations 20, saturation 98% currently on 3 L nasal cannula. General: Well-nourished, obese male, in no acute distress. Skin: Warm and dry. No suspicious rashes or lesions noted. HEENT: Pupils are equal, round, and reactive. EOMs intact. No conjunctival pallor or scleral icterus. Oropharynx: He is edentulous. No obvious intraoral lesions. Neck: No lymphadenopathy or thyromegaly. Heart: Regular rate and rhythm. No murmur appreciated. Lungs: Clear to auscultation. Maybe a few crackles at the right base. Abdomen: Obese. There is an obvious umbilical bulge consistent with hernia. This is nontender, but not readily reducible. There is also an apparent left inguinal hernia, which is nontender, though difficult to assess by body habitus. Abdomen is soft with very mild tenderness to deep palpation in the right upper quadrant. The remainder of the abdomen is soft and nontender. Genitalia: Otherwise not examined other than groins. Back: No spinous processes or CVA tenderness. Extremities: No edema. Left foot is examined specifically showing intact dark apparent full- thickness eschar of the bottom of the heel measuring approximately 6 x 3 cm. There is no obvious drainage or evidence of active infection. The dorsalis pedis pulses present by palpation, but the posterior tibial is less easily palpable. Neurological: Grossly intact, though specific exam not performed. DIAGNOSTIC STUDIES/LAB DATA: Of note, white blood cell count on admission 13, 600, down to 8300 today. The differential is normal. Hemoglobin 8, hematocrit 25 which is consistent with his previous values. Electrolytes are normal. BUN and creatinine 8 and 1.53 respectively also consistent with prior values. Total bilirubin was normal on admission and went up to 1.2 yesterday and 1.7 today, AST went from 131 yesterday to 170 today, ALT went from 30 to 58 today, alkaline phosphatase 87 to 174 today. His radiological studies were reviewed, which included ultrasound of the right upper quadrant showing fatty changes in the liver as well as gallstones and a dilated common bile duct measured at 1.4 cm. The gallbladder wall thickness was measured at 0.[address] scan of the abdomen and pelvis without contrast on 02/19/19 showed bilateral renal cysts, fat containing left inguinal hernia, fat containing umbilical hernia measuring at 8.5 cm in diameter, and possible mild left inguinal lymphadenopathy. There were no other acute changes. MRCP on 02/20/19 showed gallstones including a possible small stone in the cystic duct, common bile duct measured at 1.3 cm, but without filling defect. IMPRESSION: Cholelithiasis with likely acute cholecystitis, improving. He does not have choledocholithiasis. He is at risk of having additional future episodes, some of which may be complicated. PLAN: He does appear to be a candidate for surgery, though has significant cardiac history and EKG changes that I believe would warrant further cardiac workup. This was discussed both with the patient and with hospitalist EDWIGE, Denton Stern, who will initiate that workup. Further antibiotic treatment will be deferred to the medical team. I have discussed this case with my attending, Dr. Hope and we are looking at office followup with Dr. Mason scheduled for next 02/26/19 at 1 p.m. if the patient has been discharged. We will follow with you both while the patient is in the hospital and upon discharge with surgical scheduling pending completion of workup as noted above. The patient understands and is accepting of the plan. He would like to complete as much of his workup as possible while he is still an inpatient. EDWIGE LAWSON [id number]/[facility] #: [id number] [facility]
[2019-02-21] MEDS: Tamsulosin CAP* 0.4 MG PO SCH (20:33)
[2019-02-22] MEDS: Insulin GLARGINE(*) 1 UNITS UNIT SUBCUT SCH (02:39)
[2019-02-22] MEDS: metroNIDAZOLE IV 500 MG/100ML* 500 MG/100 ML BAG IVPB SCH ×3 (04:38→20:41)
[2019-02-22] MEDS: Heparin VIAL(*) 5000 UNITS/ML VIAL (FIVE THOUSAND) SUBCUT SCH ×3 (06:13→23:21)
[2019-02-22 06:48] LABS: ABS Eosinophils 0.4 10^3/ul (0-0.6); ABS Lymphocytes 1.3 10^3/ul (1.0-4.8); ABS Monocytes 0.4 10^3/ul (0-0.8); ABS Neutrophils 5.7 10^3/ul (1.5-7.7); Eosinophil % 5.4 %; Hematocrit 26 % (42-52); Hemoglobin 8.2 g/dL (14.0-18.0); Lymphocyte % 16.4 %; Mean Corpuscular HGB Conc 32 g/dL (31-36); Mean Corpuscular Hemoglobin 24 pg (27-31); Mean Corpuscular Volume 75 fL (80-94); Mean Platelet Volume 7.6 fL (7.4-10.4); Platelet Count 256 10^3/uL (150-450); Red Blood Count 3.46 10^6 /uL (4.18-5.48); Red Cell Distribution Width 18 % (10.5-15); White Blood Count 7.9 10^3/uL (3.5-10.8)
[2019-02-22 07:06] LABS: Albumin 2.9 g/dL (3.2-5.2); Albumin/Globulin Ratio 0.7 (1-3); BUN/Creatinine Ratio 16.7 (8-20); Calcium 8.2 mg/dL (8.6-10.3); EGFR African American 54.3 (>60); EGFR Non-African American 44.9 (>60); Globulin 4.2 g/dL (2-4); Magnesium 2.1 mg/dL (1.9-2.7); Total Bilirubin 1.2 mg/dL (0.2-1.0); Total Protein 7.1 g/dL (6.4-8.9)
[2019-02-22] MEDS: Mometasone/Formoter 200/5 MDI INH SCH ×2 (07:50→20:51)
[2019-02-22] MEDS: Nystatin TOP POWDER* 15 GM BTL TOPICAL SCH ×3 (09:14→20:41)
[2019-02-22] MEDS: Metoprolol Tartrate TAB* 50 mg PO SCH ×2 (09:14→20:41)
[2019-02-22] MEDS: Finasteride TAB* 5 MG PO SCH (09:14)
[2019-02-22] MEDS: Cefepime 1 GM in Dextrose(*) 1 GM/50 ML BAG IV SCH (11:42)
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
[2019-02-22] MEDS: Digoxin TAB* 0.125 MG PO SCH (17:14)
[2019-02-22] MEDS: Tamsulosin CAP* 0.4 MG PO SCH (20:41)
[2019-02-23] MEDS: Insulin GLARGINE(*) 1 UNITS UNIT SUBCUT SCH (03:01)
[2019-02-23] MEDS: metroNIDAZOLE IV 500 MG/100ML* 500 MG/100 ML BAG IVPB SCH ×3 (04:29→20:16)
[2019-02-23] MEDS: Heparin VIAL(*) 5000 UNITS/ML VIAL (FIVE THOUSAND) SUBCUT SCH ×3 (05:50→23:25)
[2019-02-23] MEDS: Mometasone/Formoter 200/5 MDI INH SCH ×2 (07:36→20:08)
[2019-02-23 08:41] LABS: ABS Eosinophils 0.4 10^3/ul (0-0.6); ABS Lymphocytes 1.6 10^3/ul (1.0-4.8); ABS Monocytes 0.5 10^3/ul (0-0.8); ABS Neutrophils 7.6 10^3/ul (1.5-7.7); Eosinophil % 3.9 %; Hematocrit 27 % (42-52); Hemoglobin 8.5 g/dL (14.0-18.0); Lymphocyte % 15.6 %; Mean Corpuscular HGB Conc 31 g/dL (31-36); Mean Corpuscular Hemoglobin 24 pg (27-31); Mean Corpuscular Volume 76 fL (80-94); Mean Platelet Volume 6.9 fL (7.4-10.4); Platelet Count 284 10^3/uL (150-450); Red Blood Count 3.62 10^6 /uL (4.18-5.48); Red Cell Distribution Width 17 % (10.5-15); White Blood Count 10.1 10^3/uL (3.5-10.8)
[2019-02-23 09:18] LABS: Albumin/Globulin Ratio 0.6 (1-3); BUN/Creatinine Ratio 15.2 (8-20); Calcium 8.6 mg/dL (8.6-10.3); EGFR African American 65.9 (>60); EGFR Non-African American 54.4 (>60); Globulin 4.7 g/dL (2-4); Potassium 3.9 mmol/L (3.5-5.0); Total Bilirubin 1.2 mg/dL (0.2-1.0); Total Protein 7.7 g/dL (6.4-8.9)
[2019-02-23] MEDS: Metoprolol Tartrate TAB* 50 mg PO SCH ×2 (09:57→20:16)
[2019-02-23] MEDS: Nystatin TOP POWDER* 15 GM BTL TOPICAL SCH ×3 (09:57→20:16)
[2019-02-23] MEDS: Finasteride TAB* 5 MG PO SCH (09:57)
[2019-02-23] MEDS: Cefepime 1 GM in Dextrose(*) 1 GM/50 ML BAG IV SCH (11:49)
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
[2019-02-23] MEDS: Digoxin TAB* 0.125 MG PO SCH (17:52)
[2019-02-23] MEDS: Tamsulosin CAP* 0.4 MG PO SCH (20:16)
[2019-02-24] MEDS: Insulin GLARGINE(*) 1 UNITS UNIT SUBCUT SCH (02:48)
[2019-02-24] MEDS: metroNIDAZOLE IV 500 MG/100ML* 500 MG/100 ML BAG IVPB SCH ×3 (05:22→20:52)
[2019-02-24] MEDS: Heparin VIAL(*) 5000 UNITS/ML VIAL (FIVE THOUSAND) SUBCUT SCH ×3 (05:22→22:12)
[2019-02-24] MEDS: Mometasone/Formoter 200/5 MDI INH SCH ×2 (07:52→19:38)
[2019-02-24] MEDS: Finasteride TAB* 5 MG PO SCH (08:47)
[2019-02-24] MEDS: Metoprolol Tartrate TAB* 50 mg PO SCH (08:47)
[2019-02-24] MEDS: Nystatin TOP POWDER* 15 GM BTL TOPICAL SCH ×3 (08:47→22:13)
[2019-02-24] MEDS: Ferrous Sulfate TAB* 325 MG PO SCH (14:06)
[2019-02-24] MEDS: Cefepime 1 GM in Dextrose(*) 1 GM/50 ML BAG IV SCH (14:06)
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
[2019-02-24] MEDS: Digoxin TAB* 0.125 MG PO SCH (18:16)
[2019-02-24] MEDS: Tamsulosin CAP* 0.4 MG PO SCH (22:12)
[2019-02-25] MEDS: Insulin GLARGINE(*) 1 UNITS UNIT SUBCUT SCH (02:42)
[2019-02-25] MEDS: metroNIDAZOLE IV 500 MG/100ML* 500 MG/100 ML BAG IVPB SCH ×2 (04:39→12:44)
[2019-02-25] MEDS: Heparin VIAL(*) 5000 UNITS/ML VIAL (FIVE THOUSAND) SUBCUT SCH ×3 (06:03→21:20)
[2019-02-25] MEDS: Mometasone/Formoter 200/5 MDI INH SCH ×2 (07:55→20:25)
[2019-02-25] MEDS ORDERED: Regadenoson* 0.4 MG/5 ML SYRINGE ONE (08:50)
[2019-02-25] MEDS ORDERED: Aminophylline IV* 25 MG/ML 10 ML VIAL ONE (08:51)
[2019-02-25 08:53] LABS: Albumin 2.8 g/dL (3.2-5.2); Albumin/Globulin Ratio 0.7 (1-3); BUN/Creatinine Ratio 11.2 (8-20); Calcium 8.3 mg/dL (8.6-10.3); EGFR African American 70.1 (>60); Globulin 4.3 g/dL (2-4); Potassium 3.8 mmol/L (3.5-5.0); Total Bilirubin 0.9 mg/dL (0.2-1.0); Total Protein 7.1 g/dL (6.4-8.9)
[2019-02-25] MEDS: Ferrous Sulfate TAB* 325 MG PO SCH (10:37)
[2019-02-25] MEDS: Finasteride TAB* 5 MG PO SCH (10:37)
[2019-02-25] MEDS: Ascorbic Acid TAB* 500 MG PO SCH (10:37)
[2019-02-25] MEDS: Nystatin TOP POWDER* 15 GM BTL TOPICAL SCH ×3 (10:39→21:19)
[2019-02-25] MEDS: Cefepime 1 GM in Dextrose(*) 1 GM/50 ML BAG IV SCH (11:35)
[2019-02-25] MEDS ORDERED: Polyethylene Glycol 3350* 17 GM PACKET PO PRN (12:23)
[2019-02-25 13:31] LABS: ABS Basophils 0.1 10^3/ul (0-0.2); ABS Eosinophils 0.2 10^3/ul (0-0.6); ABS Lymphocytes 1.4 10^3/ul (1.0-4.8); ABS Monocytes 0.7 10^3/ul (0-0.8); ABS Neutrophils 8.8 10^3/ul (1.5-7.7); Eosinophil % 1.9 %; Hematocrit 24 % (42-52); Hemoglobin 7.6 g/dL (14.0-18.0); Lymphocyte % 12.4 %; Mean Corpuscular HGB Conc 31 g/dL (31-36); Mean Corpuscular Hemoglobin 24 pg (27-31); Mean Corpuscular Volume 76 fL (80-94); Mean Platelet Volume 7.5 fL (7.4-10.4); Platelet Count 268 10^3/uL (150-450); Red Blood Count 3.16 10^6 /uL (4.18-5.48); Red Cell Distribution Width 18 % (10.5-15); White Blood Count 11.2 10^3/uL (3.5-10.8)
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
[2019-02-25] MEDS: Digoxin TAB* 0.125 MG PO SCH (16:27)
--- NOTE | 2019-02-25 16:57 | PN ---
Progress Note - Progress Note Date of Service: 02/25/19 Note: Surgery Progress: S: Feels "blah" today. Denies any significant abd pain, N/V. He reports "constipation". Still receiving IV cefipime and metronidazole. He underwent a nuclear stress test today. I spoke directly with Dr. Ko who stated he was at intermediate, but acceptable, risk for the planned procedure. Current Medications Acetaminophen (Tylenol Tab*) 650 mg PO Q4H PRN PRN Reason: FEVER/PAIN Last Admin: 02/20/19 03:09 Dose: 650 mg Al Hydrox/Mg Hydrox/Simethicone (Maalox Plus*) 30 ml PO Q6H PRN PRN Reason: INDIGESTION Albuterol (Ventolin Hfa Inhaler*) 2 puff INH Q4H PRN PRN Reason: SOB/WHEEZING Ascorbic Acid (Vitamin C Tab*) 500 mg PO DAILY [facility] Last Admin: 02/25/19 10:37 Dose: 500 mg Cefuroxime Axetil (Ceftin Tab(*)) 500 mg PO BID [facility] Digoxin (Lanoxin Tab*) 0.125 mg PO 1700 [facility] Last Admin: 02/25/19 16:27 Dose: 0.125 mg Docusate Sodium (Colace Cap*) 100 mg PO BID PRN PRN Reason: CONSTIPATION Last Admin: 02/24/19 19:09 Dose: 100 mg Ferrous Sulfate (Ferrous Sulfate Tab*) 325 mg PO DAILY [facility] Last Admin: 02/25/19 10:37 Dose: 325 mg Finasteride (Proscar Tab*) 5 mg PO DAILY [facility] Last Admin: 02/25/19 10:37 Dose: 5 mg Heparin Sodium (Porcine) (Heparin Vial(*)) 5,000 units SUBCUT Q8HR [facility] Last Admin: 02/25/19 13:47 Dose: 5,000 units Insulin Glargine (Lantus(*)) 25 units SUBCUT Q24H [facility] Last Admin: 02/25/19 02:42 Dose: 25 units Lorazepam (Ativan Tab(*)) 0.5 mg PO Q6H PRN PRN Reason: ANXIETY Metoprolol Succinate (Toprol Xl Tab*) 50 mg PO BID [facility] Metronidazole (Flagyl) 500 mg PO TID [facility] Mometasone Furoate/Formoterol Fumar (Dulera 200/5 Mdi*) 2 puff INH BID [facility]; Protocol Last Admin: 02/25/19 07:55 Dose: Not Given Nystatin (Nystatin Top Powder*) 1 applic TOPICAL TID [facility] Last Admin: 02/25/19 13:47 Dose: 1 dose Ondansetron HCl (Zofran Inj*) 4 mg IV Q4H PRN PRN Reason: NAUSEA/VOMITING Polyethylene Glycol/Electrolytes (Miralax*) 17 gm PO DAILY PRN PRN Reason: CONSTIPATION Senna (Senokot Tab*) 1 tab PO BID PRN PRN Reason: CONSTIPATION Last Admin: 02/24/19 19:09 Dose: 1 tab Tamsulosin HCl (Flomax Cap*) 0.4 mg PO BEDTIME [facility] Last Admin: 02/24/19 22:12 Dose: 0.4 mg O: Vital Signs - 8 hr 02/25/19 02/25/19 02/25/19 09:38 11:29 15:05 Temperature 98.4 F 98.5 F Pulse Rate 81 79 Respiratory 16 16 20 Rate Blood Pressure 141/65 157/66 (mmHg) O2 Sat by Pulse 98 98 Oximetry 02/25/19 15:48 Temperature 98.5 F Pulse Rate 79 Respiratory 20 Rate Blood Pressure 157/66 (mmHg) O2 Sat by Pulse 98 Oximetry Intake and Output Last 24 Hours 02/23/19 02/24/19 02/25/19 02/26/19 06:59 06:59 06:59 06:59 Intake Total 1527 1727 640 650 Output Total 2880 1500 950 200 Balance -1353 227 -310 450 Intake: IV Fluids 25 25 150 ABX - CEFEPIME 50 ABX - FLAGYL 100 NS (0.9%) 25 25 IVPB 102 102 200 40 ABX - CEFEPIME 20 ABX - FLAGYL 102 102 200 20 Oral 1400 1600 440 460 Output: Urine 2880 1500 950 Biggs 200 Other: Estimated Void Medium # Bowel Movements 1 Estimated Stool Amount Large Gen: appears mildly uncomfortable, but no acute distress Heart: reg Lungs: decreased BS at Right base, otherwise clear Abd: very mild tenderness to deep palpation RUQ; umbilical hernia as previously described, no change; remainder of abdomen soft, nontender Labs: Laboratory Tests 02/25/19 08:21 Total Bilirubin 0.90 AST 16 ALT 14 Alkaline Phosphatase 180 H A: biliary colic w/ lab and US evidence of acute cholecystits, improving on current IV abx; nuclear stress test and cardiology eval: patient at intermediate, but acceptable risk to proceed with laparoscopic choleycystectomy. P: these findings were communicated to Dr. Mason, who will see the patient on Sun, 02/26. Surgery is scheduled for , 02/27, with Dr. Mason. Patient understands and agrees with plan.
--- NOTE | 2019-02-25 17:32 | CONSULT ---
Subjective Date of Service: 02/25/19 Interval History: Mr. Thapa is a 64 yo male with PMH significant for DM2, HTN, Afib, COPD, PAD , CKD stage 3, and a chronic left heel ulcer; who presented to the emergency room with complains of chest and abdominal pain. He was found to have cholelithiasis. The left heel ulcer according to the medical records has been present since January 14, 2019. Mr. Thapa was seen in consultation by Dr. Steel on a previous hospital stay earlier this month. At that time it was felt that he would benefit from left leg arteriography and attempted revascularization of the popliteal and intrapopliteal arteries. He is waiting for an appointment to be scheduled outpatient with Dr. Steel for the procedure. Patient seen and examined at bedside. Family History: Unchanged from Admission Social History: Unchanged from Admission Past Medical History: Unchanged from Admission Review of Systems - Measurements Intake and Output: Intake and Output Last 24 Hours 02/23/19 02/24/19 02/25/19 02/26/19 06:59 06:59 06:59 06:59 Intake Total 1527 1727 640 650 Output Total 2880 1500 950 200 Balance -1353 227 -310 450 Intake: IV Fluids 25 25 150 ABX - CEFEPIME 50 ABX - FLAGYL 100 NS (0.9%) 25 25 IVPB 102 102 200 40 ABX - CEFEPIME 20 ABX - FLAGYL 102 102 200 20 Oral 1400 1600 440 460 Output: Urine 2880 1500 950 Biggs 200 Other: Estimated Void Medium # Bowel Movements 1 Estimated Stool Amount Large - Review of Systems General Comments: Mr. Reddy states that he is not feeling well today, but is unable to describe this. Constitutional Symptoms: Negative: Fever, Other - Chills Dermatology: Positive: Other - Chronic ulcer to the left heel Endocrinology: Positive: Diabetes Mellitus Objective Active Medications: Acetaminophen (Tylenol Tab*) 650 mg PO Q4H PRN Reason: FEVER/PAIN Al Hydrox/Mg Hydrox/Simethicone (Maalox Plus*) 30 ml PO Q6H PRN Reason: INDIGESTION Albuterol (Ventolin Hfa Inhaler*) 2 puff INH Q4H PRN Reason: SOB/WHEEZING Ascorbic Acid (Vitamin C Tab*) 500 mg PO DAILY [facility] Cefuroxime Axetil (Ceftin Tab(*)) 500 mg PO BID [facility] Digoxin (Lanoxin Tab*) 0.125 mg PO 1700 [facility] Docusate Sodium (Colace Cap*) 100 mg PO BID PRN Reason: CONSTIPATION Ferrous Sulfate (Ferrous Sulfate Tab*) 325 mg PO DAILY [facility] Finasteride (Proscar Tab*) 5 mg PO DAILY [facility] Heparin Sodium (Porcine) (Heparin Vial(*)) 5,000 units SUBCUT Q8HR [facility] Insulin Glargine (Lantus(*)) 25 units SUBCUT Q24H [facility] Lorazepam (Ativan Tab(*)) 0.5 mg PO Q6H PRN Reason: ANXIETY Metoprolol Succinate (Toprol Xl Tab*) 50 mg PO BID [facility] Metronidazole (Flagyl) 500 mg PO TID [facility] Mometasone Furoate/Formoterol Fumar (Dulera 200/5 Mdi*) 2 puff INH BID [facility]; Protocol Nystatin (Nystatin Top Powder*) 1 applic TOPICAL TID [facility] Ondansetron HCl (Zofran Inj*) 4 mg IV Q4H PRN Reason: NAUSEA/VOMITING Polyethylene Glycol/Electrolytes (Miralax*) 17 gm PO DAILY PRN Reason: CONSTIPATION Senna (Senokot Tab*) 1 tab PO BID PRN Reason: CONSTIPATION Tamsulosin HCl (Flomax Cap*) 0.4 mg PO BEDTIME [facility] Vital Signs 02/25/19 15:48 Temperature 98.5 F Pulse Rate 79 Respiratory 20 Rate Blood Pressure 157/66 (mmHg) O2 Sat by Pulse 98 Oximetry Oxygen Devices in Use Now: Nasal Cannula Appearance: NAD, laying in bed Ears/Nose/Mouth/Throat: Mucous Membranes Moist Respiratory: Symmetrical Chest Expansion and Respiratory Effort Skin: - - See skin note below Neurological: Alert and Oriented x 3 Result Diagrams: 02/26/19 06:29 02/26/19 06:29 Microbiology and Other Data: Microbiology 02/20/19 16:10 Urine Culture - Final Urine No Growth (<1,000 CFU/mL) Skin Deviation Note - Skin Deviation Findings Left heel - There is a large wound to the heel, measuring 4.5 cm x 5 cm x 0.1 cm. The wound base is a black eschar. The surrounding skin is intact with slight erythema, but with dry flaky skin. There is no drainage noted. Assessment/Plan: Mr. Thapa is a 64 yo male with PMH significant for DM2, HTN, Afib, COPD, PAD , CKD stage 3, and a chronic left heel ulcer; who presented to the emergency room with complains of chest and abdominal pain. He was found to have cholelithiasis. He has a known chronic left heel ulcer. 1. Left heel ulcer. Prealbumin was 11 in 08/2018. Consider rechecking a prealbumin. Recommend applying a dry dressing, telfa and rolled gauze. Keep heel elevated off the bed. 2. Diabetes Mellitus, type 2. HgA1C was 8.7 on 02/06/19. Maintain good glycemic control to assist with wound healing. 3. Peripheral Artery Disease. 4. Diet. Consistent carbohydrate. 5. Code Status. Full code status. 6. Disposition. Inpatient, disposition per primary medicine team. TIME SPENT: Time spent on this wound consultation was 20 minutes and 10 minutes was spent with the patient discussing past medical history; assessing measuring and photographing the wounds. Wound Problem/Plan Is Patient a Wound Clinic Patient: [facility] Current Treatment: Dry dressing Attending: Elida Daniels
--- NOTE | 2019-02-25 18:09 | CONS ---
CC: Hospitalist Service; Dr. Tucker; Dr. Fisher; Dr. Hermosillo CARDIOLOGY CONSULT: DATE OF CONSULT: 02/25/19 HISTORY OF PRESENT ILLNESS: I was asked by hospitalist service to see this 63-year- old male patient , who was presented with abdominal pain and subsequently was found to have cholelithiasis. Apparentl y, the patient does have significant comorbidities. Back in 2017, he had mild nonischemic cardiomyop athy, EF 45%, but that was in the setting of hypoxia and sleep apnea and medical illnesses acutely. H e recovered with beta-elle treatment with an EF reported on 04/06/17 to be 55% to 60% by transthor acic echocardiogram. He does have comorbidities including obesity, chronic kidney disease, systemic arterial hypertension, sleep apnea and history of COPD, also diabetes mellitus and history of atrial fibrillation. He gives no active symptoms of chest pain. He is in pain because of his abdominal misty n. Cardiology consult was further requested for consideration for a laparoscopic cholecystectomy to be done sometime if needed in the future. The patient had a nuclear Myoview stress test that was don e today that showed no ischemia and no infarction is appreciated. There is no fever, no chills, no s kin rash, no tremors, no hematochezia, no palpitations, no tachycardia is appreciated. PAST SURGICAL HISTORY: None. MEDICATIONS: The patient is on: 1. Keflex 500 mg every 8 hours. 2. Ferrous sulfate 325 mg daily. 3. Proscar 5 mg daily. 4. Heparin 5000 units subcu q.8 hours. 5. Lantus 25 units subcu q.24 hours. 6. Toprol 50 mg twice a day. 7. Flagyl 500 mg q.8 hours. ALLERGIES: SHELLFISH and PENICILLIN. FAMILY HISTORY: Father had history of myocardial infarction. SOCIAL HISTORY: He lives alone. No history of alcoholism. No smoking. No illicit drug use. REVIEW OF SYSTEMS: His review of all other systems essentially is negative. PHYSICAL EXAM: On exam, he is in abdominal pain. He had no chest pain. His vitals include his bloo d pressure 157/66, pulse 79, respiratory rate 20, temperature 98.5. Head and Neck Exam: Normocephal ic, atraumatic head. Ears, Nose, and Throat: Essentially benign. Neck: Supple. JVP is not elevat ed. No carotid bruits. No masses in the neck are appreciated. Chest: Diminished air entry at the bases. No rales, no wheeze. Heart: Normal S1, S2. No added sounds. No gallops, no rubs. Abdomen: Obese, soft with tenderness in right upper quadrant. No guarding. No rigidity. No organomegaly. Extremities: No edema, no cyanosis, no clubbing. Skin exam is normal. Psych: Normal affect and m ood. DATABASES COMPUTER CONSULTANT: No focal deficits is appreciated. DIAGNOSTIC STUDIES/LAB DATA: His labs showed white blood cell 11.2, hemoglobin 7.6, hematocrit 24, a nd platelets 268. He is anemic. Sodium 139, potassium 3.8, chloride 104, BUN 14, creatinine 1.25. LFTs normal. His EKG, sinus rhythm, poor R-wave progression is appreciated, nonspecific ST-T changes appreciated. IMPRESSION: The patient is a 63-year-old male patient with: 1. Presentation with abdominal pain and further evaluation found him to have cholelithiasis, gallsto tarsha. There is some suggestion of cystic duct stone. 2. Nuclear Myoview stress test done today showed no ischemia, no infarction. 3. History of mild nonischemic cardiomyopathy in the past with recovering EF, on 04/06/17 of 55% to 60%. 4. Systemic arterial hypertension. 5. Diabetes mellitus. 6. Hyperlipidemia. 7. Obesity. 8. Sleep apnea. 9. History of atrial fibrillation in the past. PLAN: The patient from cardiac standpoint appears to be hemodynamically stable. His nuclear Myoview stress test showed no ischemia, no infarction. He had no chest pain. His troponins were negative ba sed on the above evaluation, although he does have comorbidities, but no further cardiac testing is n eeded at the present time. I am clearing him to proceed for his laparoscopic cholecystectomy to be do ne in the near future if needed. It is important to make sure his risk factors are controlled includ ing his diabetes mellitus, hypertension and his beta elle treatment to be continued accordingly. Hydration is very important in his situation. Based on absence of significant cardiomyopathy and sig nificant known arrhythmia and absent of significant valvular disease and no significant ischemia, I a m clearing him to proceed. I have discussed this with the hospitalist service. TIME SPENT: More than half of at least 60 to 65 plus minutes was in the education and counseling mod e and [id number], explaining all of the above and making further recommendations. [id number]/[facility] #: [id number]
[2019-02-25] MEDS: Acetaminophen TAB* 325 MG PO PRN (19:55)
[2019-02-25] MEDS: metroNIDAZOLE * 500 MG TABLET PO SCH (21:15)
[2019-02-25] MEDS: ceFUROXime TAB(*) 250 MG PO SCH (21:15)
[2019-02-25] MEDS: Metoprolol Succinate XL TAB* 50 MG PO SCH (21:15)
[2019-02-25] MEDS: Tamsulosin CAP* 0.4 MG PO SCH (21:15)
[2019-02-26] MEDS: Insulin GLARGINE(*) 1 UNITS UNIT SUBCUT SCH (02:53)
[2019-02-26] MEDS: Heparin VIAL(*) 5000 UNITS/ML VIAL (FIVE THOUSAND) SUBCUT SCH ×3 (05:36→20:33)
[2019-02-26 07:14] LABS: ABS Eosinophils 0.2 10^3/ul (0-0.6); ABS Lymphocytes 1.3 10^3/ul (1.0-4.8); ABS Monocytes 0.6 10^3/ul (0-0.8); ABS Neutrophils 6.3 10^3/ul (1.5-7.7); Eosinophil % 2.8 %; Hematocrit 25 % (42-52); Lymphocyte % 15.1 %; Mean Corpuscular HGB Conc 32 g/dL (31-36); Mean Corpuscular Hemoglobin 25 pg (27-31); Mean Corpuscular Volume 76 fL (80-94); Mean Platelet Volume 7.7 fL (7.4-10.4); Platelet Count 253 10^3/uL (150-450); Red Blood Count 3.25 10^6 /uL (4.18-5.48); Red Cell Distribution Width 18 % (10.5-15); White Blood Count 8.5 10^3/uL (3.5-10.8)
[2019-02-26 07:26] LABS: Albumin 2.7 g/dL (3.2-5.2); Albumin/Globulin Ratio 0.6 (1-3); BUN/Creatinine Ratio 9.5 (8-20); Calcium 8.1 mg/dL (8.6-10.3); EGFR African American 53.4 (>60); EGFR Non-African American 44.1 (>60); Globulin 4.3 g/dL (2-4); Potassium 3.6 mmol/L (3.5-5.0); Total Bilirubin 0.6 mg/dL (0.2-1.0)
[2019-02-26] MEDS: Ascorbic Acid TAB* 500 MG PO SCH (08:19)
[2019-02-26] MEDS: metroNIDAZOLE * 500 MG TABLET PO SCH ×3 (08:19→20:32)
[2019-02-26] MEDS: ceFUROXime TAB(*) 250 MG PO SCH ×2 (08:19→20:32)
[2019-02-26] MEDS: Finasteride TAB* 5 MG PO SCH (08:19)
[2019-02-26] MEDS: Ferrous Sulfate TAB* 325 MG PO SCH (08:19)
[2019-02-26] MEDS: Metoprolol Succinate XL TAB* 50 MG PO SCH ×2 (08:19→20:32)
[2019-02-26] MEDS: Nystatin TOP POWDER* 15 GM BTL TOPICAL SCH ×3 (08:21→20:33)
[2019-02-26] MEDS: Mometasone/Formoter 200/5 MDI INH SCH ×2 (08:21→22:03)
[2019-02-26] MEDS: Digoxin TAB* 0.125 MG PO SCH (16:28)
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
[2019-02-26] MEDS: Tamsulosin CAP* 0.4 MG PO SCH (20:33)
[2019-02-27] MEDS: Insulin GLARGINE(*) 1 UNITS UNIT SUBCUT SCH (02:19)
[2019-02-27] MEDS: Heparin VIAL(*) 5000 UNITS/ML VIAL (FIVE THOUSAND) SUBCUT SCH ×3 (04:32→21:51)
[2019-02-27] MEDS: Finasteride TAB* 5 MG PO SCH (08:02)
[2019-02-27] MEDS: Ascorbic Acid TAB* 500 MG PO SCH (08:02)
[2019-02-27] MEDS: metroNIDAZOLE * 500 MG TABLET PO SCH ×3 (08:02→21:51)
[2019-02-27] MEDS: Ferrous Sulfate TAB* 325 MG PO SCH (08:02)
[2019-02-27] MEDS: Metoprolol Succinate XL TAB* 50 MG PO SCH ×2 (08:02→21:51)
[2019-02-27] MEDS: ceFUROXime TAB(*) 250 MG PO SCH ×2 (08:02→21:51)
[2019-02-27] MEDS: Nystatin TOP POWDER* 15 GM BTL TOPICAL SCH ×3 (08:04→21:57)
[2019-02-27] MEDS: Mometasone/Formoter 200/5 MDI INH SCH ×2 (08:07→20:03)
[2019-02-27] MEDS ORDERED: Bupivacaine 0.5% W/EPI SDV* 30 ML VIAL ONE (11:38)
[2019-02-27] MEDS ORDERED: ceFAZolin 2 GM PREMIX in ORs 2 GM/50 ML BAG IVPB ONE (11:42)
[2019-02-27] MEDS ORDERED: DiMENhydriNATE IV* 50 MG/ML VIAL IV PUSH PRN (11:52)
[2019-02-27] MEDS ORDERED: Naloxone* 0.4 MG/ML 1 ML VIAL IV PRN (11:52)
[2019-02-27] MEDS ORDERED: oxyCODONE TAB* 5 MG TAB PO PRN (11:52)
[2019-02-27] MEDS ORDERED: PROCHLORPERAZINE INJ 5 MG/ML 2 ML VIAL IV PRN (11:52)
[2019-02-27] MEDS ORDERED: Midazolam* 1 MG/ML 5 ML VIAL (5 MG) ONE (11:56)
[2019-02-27] MEDS ORDERED: fentaNYL* 50 MCG/ML 5 ML VIAL (250 MCG VIAL) ONE (11:56)
[2019-02-27] MEDS ORDERED: KETAMINE HCL* 50 MG/ML 10 ML VIAL ONE (11:56)
[2019-02-27] MEDS ORDERED: Ondansetron INJ* 2 MG/ML VIAL ONE (12:21)
[2019-02-27] MEDS ORDERED: Propofol* 10 MG/ML 20 ML BTL ONE (12:21)
[2019-02-27] MEDS ORDERED: Glycopyrrolate IV* 0.2 MG/ML 1 ML VIAL ONE (12:21)
[2019-02-27] MEDS ORDERED: PROCHLORPERAZINE INJ 5 MG/ML 2 ML VIAL ONE (12:21)
[2019-02-27] MEDS ORDERED: Neostigmine Methylsulfate* 1 MG/ML 10 ML VIAL (1 mg/ml) ONE (12:21)
[2019-02-27] MEDS ORDERED: Lidocaine 2% PF * 5 ML VIAL ONE (12:39)
[2019-02-27] MEDS ORDERED: Phenylephrine 10 MG/ML VIAL* 1 ML VIAL ONE (12:39)
[2019-02-27] MEDS ORDERED: Acetaminophen IV 1GM/100ML * 100 ML ONE (12:42)
[2019-02-27] MEDS ORDERED: fentaNYL* 50 MCG/ML 2 ML VIAL (100 MCG VIAL) ONE (13:24)
[2019-02-27] MEDS ORDERED: Morphine 4 MG/ML VIAL (1 ml) 4 MG/ML VIAL ONE ×2 (13:24→13:39)
[2019-02-27] MEDS: fentaNYL* 50 MCG/ML 2 ML VIAL (100 MCG VIAL) IV PRN ×2 (13:26→13:34)
[2019-02-27] MEDS: Morphine 4 MG/ML VIAL (1 ml) 4 MG/ML VIAL IV PRN ×2 (13:26→13:31)
[2019-02-27] MEDS: Acetaminophen TAB* 325 MG PO PRN (15:22)
[2019-02-27] MEDS: Digoxin TAB* 0.125 MG PO SCH (16:14)
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
[2019-02-27] MEDS ORDERED: oxyCODONE/Acetamin 5/325 MG* TAB PO PRN ×2 (16:32→16:33)
--- NOTE | 2019-02-27 16:57 | OP ---
OPERATIVE REPORT: DATE OF OPERATION: 02/27/19 DATE OF : 51 SURGEON: Roscoe Mason MD. PRINT PRODUCER: Avril Oviedo NP PRE-OP DIAGNOSIS: Cholecystitis. POST-OP DIAGNOSIS: Cholecystitis. OPERATIVE PROCEDURE: Laparoscopic cholecystectomy. INDICATIONS FOR PROCEDURE: Cholecystitis. Risks included, but not limited to bleeding, infection, i njury to intraabdominal contents including the bowel, bile duct, liver and others explained to the pa tient. He seemed to understand and agreed to the procedure and all questions were answered. DESCRIPTION OF PROCEDURE: The patient was taken to the operating room and placed supine. Preoperati ve antibiotics were given. After the successful induction of general endotracheal anesthesia, the ab domen was prepped and draped in sterile fashion. Time-out was performed indicating correct patient, correct procedure. A 5 mm trocar was placed to the right of the falciform ligament in the subxiphoid position under direct visualization of the camera using a bladeless Optiview trocar. Pneumoperitone um was achieved at 15 mmHg. The camera was placed in the abdomen and the abdomen was scanned. There was no obvious injury from trocar placement. A supraumbilical 12 mm trocar was placed along with 2 right-sided 5 mm trocars. The fundus of the distended gallbladder was grasped and then retracted up into the liver. Adhesions from the omentum to the gallbladder were taken down bluntly along any vasc ular plane as well as using Bovie cautery. The cystic duct was identified, isolated, clipped and div ided. The cystic artery was identified, isolated, clipped and divided. The gallbladder was removed from the hepatic bed using the Bovie cautery hook. It was placed into an Endobag and removed from th e supraumbilical port site. The right upper quadrant was irrigated and aspirated and dry. Hemostasi s was intact. EBL was minimal, less than 3 cc. Pneumoperitoneum was aspirated out of the abdomen an d trocars were removed. The supraumbilical fascia was closed with single interrupted 0 Vicryl suture . The skin was closed with Monocryl and glue. He tolerated the procedure well. [id number]/[facility] #: [id number]
[2019-02-27] MEDS ORDERED: Morphine INJ* 2 MG/ML 1 ML SYRINGE (TWO MG - NEW SYRINGE VERSION) IV PRN (17:32)
[2019-02-27] MEDS ORDERED: HYDROmorphone INJ1* 1 MG/ML SYRINGE IV SLOW PU ONE (18:46)
[2019-02-27] MEDS: Tamsulosin CAP* 0.4 MG PO SCH (21:51)
[2019-02-28] MEDS: Insulin GLARGINE(*) 1 UNITS UNIT SUBCUT SCH (02:51)
[2019-02-28] MEDS: Heparin VIAL(*) 5000 UNITS/ML VIAL (FIVE THOUSAND) SUBCUT SCH (05:27)
[2019-02-28] MEDS: Mometasone/Formoter 200/5 MDI INH SCH (07:56)
--- NOTE | 2019-02-28 08:29 | PN ---
Progress Note - Progress Note Date of Service: 02/28/19 Note: POD#1 s/p lap barbie Afeb, VS noted Berenice some po's, no N/V Minimal pain Alert and coherent Abd obese, soft minimally tender, UH soft and non-tender Incisions with trace drainage Impr: Doing well s/p lap barbie Advance low fat diet as berenice Disch home today if medically able F/U surgical office 1 week
[2019-02-28] MEDS: Ferrous Sulfate TAB* 325 MG PO SCH (08:58)
[2019-02-28] MEDS: metroNIDAZOLE * 500 MG TABLET PO SCH (08:58)
[2019-02-28] MEDS: Ascorbic Acid TAB* 500 MG PO SCH (08:58)
[2019-02-28] MEDS: Metoprolol Succinate XL TAB* 50 MG PO SCH (08:58)
[2019-02-28] MEDS: ceFUROXime TAB(*) 250 MG PO SCH (08:58)
[2019-02-28] MEDS: Finasteride TAB* 5 MG PO SCH (08:59)
[2019-02-28] MEDS: Nystatin TOP POWDER* 15 GM BTL TOPICAL SCH (09:01)
[2019-02-28 09:28] VITALS: BP 140/52
--- NOTE | 2019-02-28 12:52 | DS ---
CC: Dr. Rosmery Fisher; Dr. Mason from General Surgery * DISCHARGE SUMMARY: DATE OF ADMISSION: 02/20/19 DATE OF DISCHARGE: 02/28/19 PRIMARY CARE PROVIDER: Dr. Rosmery Fisher. MY ATTENDING FOR TODAY: Dr. Sruthi Swann.* (DICTATED BY MARIANN HUSTON NP) HOSPITAL COURSE: Please refer to admitting H and P on 02/20/19, but in short, Mr. Thapa is a 64-year-old male patient with a history of chronic systolic congestive heart failure, COPD, on continuous O2, chronic kidney disease, diabetes with chronic diabetic foot ulcer, atrial fibrillation, hypertension, and anemia. The patient presented to the emergency department with complaint of abdominal pain with some nausea and vomiting. The patient because of his underlying cardiac disease, when he came to the ED, it was questionable whether he was having cardiac event versus some biliary colic. He did have some leukocytosis at admission and a tender abdomen. The patient underwent ultrasound of the abdomen on 02/20/19, which showed an echogenic liver consistent with hepatic steatosis, common bile duct measured 1.4 cm. Distal common duct was not visualized and at that point, imaging could not exclude choledocholithiasis. The patient then underwent an MRCP also on 02/20/19. MRCP did reveal cholelithiasis. There was a suggestion of a tiny cystic duct stone. Common duct was measuring at 1.3 cm. However, no filling defects were noted. Surgery was consulted to evaluate the patient for his ongoing biliary colic, abdominal pain and symptoms. Also during this time, this patient was experiencing some urinary retention; however, he was refusing Biggs catheter. He was started on Flomax and finasteride. He was empirically on antibiotics from admission as well until we could deduce the origin of his GI pain. Surgery 's impression of the patient was that of cholelithiasis with likely acute cholecystitis which had some interval improvement. However, he was high risk for having additional episodes which maybe additionally complicated. The patient does have significant comorbidities. At that point, it was determined the patient should stay inpatient and plan for laparoscopic cholecystectomy. Because of the patient's complicated comorbidities, both his pulmonary and cardiac status, Surgery requested cardiology clearance for his procedure. The patient underwent some imaging and stress test and was seen by Cardiology in consultation with Dr. Tucker. Dr. Tucker evaluated the patient's nuclear stress test which was performed on 02/25/19. Dr. Tucker's impression, the patient's cardiac status was that although the patient does have history of nonischemic cardiomyopathy in the past, it appeared that his ejection fraction was recovering to 55% to 60%. His atrial fibrillation was well controlled. His Myoview test showed that he did not have any ischemia or infarction. He currently had no chest pain and he had negative troponin. He was cleared by Cardiology for his laparoscopic cholecystectomy. His diabetes was also well controlled from a pulmonary status. He was not in respiratory distress, maintaining his saturations and volume status was also very well controlled. The patient underwent his laparoscopic cholecystectomy on 02/27/19. He had an uneventful intraoperative course. Several hours postoperatively, he did have some breakthrough pain that was difficult to control. He received 2 doses of morphine with no effect. He received 1 dose 0.5 mg of Dilaudid which worked very well. The patient states he had no pain after that, was able to sleep overnight and had no further issues. On the day of discharge, which is 02/28/19 , the patient was seen in his room. His review of systems reveals no complaints of headache, weakness, or dizziness. No chest pain, no shortness of breath. No acute abdominal pain; he does have some tenderness, but no nausea, vomiting, or diarrhea noted. No urinary complaints. No arthralgias or myalgias and no further constitutional complaints. PHYSICAL EXAMINATION: Reveals a well-appearing older gentleman, in no acute distress. His vital signs are, blood pressure 140/52, heart rate 66, respiratory rate 16, O2 saturation 100% on 2 L nasal cannula with a temperature of 98.2. HEENT: The patient is atraumatic, normocephalic. PERRLA. Nonicteric sclerae. Oral mucosa is moist. Tongue is midline. Neck is supple, nontender. No JVD noted. No carotid bruit auscultated. Cardiovascular: S1, S2 present. Rate and rhythm are irregular. No murmurs, gallops, or rubs noted. Lungs are clear bilaterally at the apices with no wheezing, rhonchi, or rales; greatly diminished at the bases. Good air entry. Abdomen is soft, mildly tender to palpation. Trocar sites are clean, dry, and intact with no exudate or erythema noted. Positive bowel sounds noted in all 4 quadrants. is deferred. Musculoskeletal: There is no clubbing, no cyanosis, no edema. He has +2 distal pulses palpable. Skin: He has chronic heel wound of the left heel, has a diabetic ulcer with necrotic eschar. He does have a weak pedal pulse noted on that side with full range of motion and decreased sensation on that side. Does not appear malodorous. There is no exudate noted. The patient does not normally ambulate without assistance. He is primarily wheelchair bound and uses assistive devices. Neurologic: He is grossly intact with no focal deficits. Psychiatric: He is appropriate. DIAGNOSTIC STUDIES/LAB DATA: WBCs 8.5, RBCs 3.25, hemoglobin 8.0, hematocrit 25 , platelets 253. Sodium 140, potassium 3.6, chloride 104, CO2 of 31, BUN 15, creatinine 1.58, GFR 44.1, glucose 139, calcium 8.1. Magnesium 2.1. Bilirubin 0.60, AST 14, ALT 11, alk phos 147. Troponin negative at 0.03. Total protein 7.0, albumin 2.7, globulin 4.3, albumin-globulin ratio is 0.6. Urinalysis shows 2+ protein but negative for any acute infective process. Digoxin level was 1.3. Imaging: Please note in the body of this report above. DISCHARGE DIAGNOSES: 1. Abdominal pain secondary to biliary colic and acute cholecystitis post laparoscopic cholecystectomy, now resolved. 2. History of atrial fibrillation, controlled. 3. Chronic obstructive pulmonary disease, not in exacerbation. 4. Chronic respiratory failure, on 2 L nasal cannula, stable. 5. Diabetes mellitus type 2, stable. 6. Diabetic foot ulcer, stable. 7. Peripheral arterial disease, stable. 8. Urinary retention, now stable. 9. History of hypertension, stable. 10. Anemia of chronic disease secondary to kidney disease and comorbid conditions, now stable. MEDICATIONS FOR DISCHARGE: Include: 1. Metformin 500 mg p.o. b.i.d. 2. K-Pooja 10 mEq p.o. daily. 3. Metoprolol tartrate 50 mg p.o. in the morning and bedtime. 4. Insulin glargine 25 units subcu 2 times a day. 5. Ferrous sulfate 325 mg p.o. daily. 6. Digoxin 0.125 mg p.o. daily. 7. Vitamin B12 of 1000 mcg p.o. daily. 8. Keflex 500 mg 3 times daily. 9. Symbicort 80/4.5 two puffs inhaled daily. 10. Aspirin 81 mg p.o. daily. 11. Vitamin C 500 mg p.o. daily. 12. Incruse Ellipta inhaled daily. 13. Spironolactone 25 mg p.o. daily. 14. Protonix 40 mg p.o. daily. 15. Percocet 1 tab p.o. q. 6 hours as needed, max daily dose 4 tabs daily for 3 days. 16. Flomax, new medication, 0.4 mg p.o. at bedtime. 17. Finasteride 5 mg, new medication, 1 tab p.o. daily. 18. Docusate 100 mg p.o. b.i.d. as needed while on pain medication. 19. Senna 1 tab p.o. b.i.d. as needed while on pain medication. DISPOSITION: The patient was discharged to home in stable condition. All questions were answered. The patient stated his understanding of his medications, followups, and discharge instructions. FOLLOWUPS: The patient was instructed to follow up with Dr. Roscoe Mason from Surgery. Surgery will arrange followup appointment for postoperative visit and Dr. Rosmery Fisher from primary care in 1 to 2 weeks. ACTIVITY: Progress activity as tolerated. DIET: Low-fat, heart-healthy, diabetic as tolerated. DISCHARGE CONDITION: Again, the patient was discharged in stable condition. TIME SPENT: 45 minutes on discharge planning. MARIANN HUSTON, OB GYN PHYSICIAN ASSISTANT [id number]/[facility] #: [id number] [facility]
== END 2019-02-28 13:19 | disposition home health service (06) | DRG 418 ==
LOC: ED 19:53 → MEDTELE 02-20 01:51
PROVIDERS: ADMIT Pediatrics; ATTEND Internal Medicine
PROC: 0DNU4ZZ Release Omentum, Percutaneous Endoscopic Approach (ICD-10-PCS; 2019-02-27)
PROC: 0FT44ZZ Resection of Gallbladder, Percutaneous Endoscopic Approach (ICD-10-PCS; principal; 2019-02-27 12:15)
DX: K80.62 Calculus of gallbladder and bile duct with acute cholecystitis without obstruction (principal); L97.428 Non-pressure chronic ulcer of left heel and midfoot with other specified severity; J96.12 Chronic respiratory failure with hypercapnia; I13.0 Hypertensive heart and chronic kidney disease with heart failure and stage 1 through stage 4 chronic kidney disease, or unspecified chronic kidney disease; I50.22 Chronic systolic (congestive) heart failure; E66.2 Morbid (severe) obesity with alveolar hypoventilation; E11.621 Type 2 diabetes mellitus with foot ulcer; I48.0 Paroxysmal atrial fibrillation; Z99.81 Dependence on supplemental oxygen; E11.42 Type 2 diabetes mellitus with diabetic polyneuropathy; E11.22 Type 2 diabetes mellitus with diabetic chronic kidney disease; J44.9 Chronic obstructive pulmonary disease, unspecified; N18.3 Chronic kidney disease, stage 3 (moderate); R33.9 Retention of urine, unspecified; D63.1 Anemia in chronic kidney disease; E78.5 Hyperlipidemia, unspecified; D50.9 Iron deficiency anemia, unspecified; K42.9 Umbilical hernia without obstruction or gangrene; K66.0 Peritoneal adhesions (postprocedural) (postinfection); K40.90 Unilateral inguinal hernia, without obstruction or gangrene, not specified as recurrent; R91.8 Other nonspecific abnormal finding of lung field; Z88.0 Allergy status to penicillin; Z91.013 Allergy to seafood; Z83.3 Family history of diabetes mellitus; Z82.49 Family history of ischemic heart disease and other diseases of the circulatory system; Z68.35 Body mass index [BMI] 35.0-35.9, adult; Z79.4 Long term (current) use of insulin; Z79.899 Other long term (current) drug therapy; Z79.82 Long term (current) use of aspirin; Z82.3 Family history of stroke
CPT/HCPCS: 36415; 71045; 71275; 74176; 74181; 76376; 76705; 78452; 80053; 80162; 81003; 81015; 83605; 83735; 84484; 85025; 85379; 85610; 86140; 87086; 88304; 93005; 93017; 94640; 99284; A9270-GY; A9502; J0280; J0690; J0692; J0780; J1170; J1644; J2250; J2270; J2405; J2704; J2710; J2785; J3010; J3475; J3490; Q9967

== ENCOUNTER 2020-08-05 21:53 | Inpatient (IN) ==
[2020-08-05 22:35] LABS: ABS Eosinophils 0.2 10^3/ul (0-0.6); ABS Lymphocytes 1.4 10^3/ul (1.0-4.8); ABS Monocytes 0.5 10^3/ul (0-0.8); ABS Neutrophils 8.9 10^3/ul (1.5-7.7); Eosinophil % 1.8 %; Hematocrit 33 % (42-52); Hemoglobin 10.3 g/dL (14.0-18.0); Mean Corpuscular HGB Conc 31 g/dL (31-36); Mean Corpuscular Hemoglobin 25 pg (27-31); Mean Corpuscular Volume 80 fL (80-94); Mean Platelet Volume 8.6 fL (7.4-10.4); Platelet Count 239 10^3/uL (150-450); Red Blood Count 4.16 10^6 /uL (4.18-5.48); Red Cell Distribution Width 14 % (10-15); White Blood Count 11.1 10^3/uL (3.5-10.8)
[2020-08-05] MEDS ORDERED: CLINDAMYCIN IVPB ONE (22:49)
[2020-08-05] MEDS ORDERED: NS 0.9% IVPB ONE (22:49)
[2020-08-05 22:50] LABS: Albumin 3.3 g/dL (3.2-5.2); Albumin/Globulin Ratio 0.8 (1-3); C Reactive Protein 88.39 mg/L (<8.01); Calcium 8.6 mg/dL (8.6-10.3); EGFR African American 42.5 (>60); EGFR Non-African American 35.1 (>60); Globulin 4.1 g/dL (2-4); Potassium 4.1 mmol/L (3.5-5.0); Total Bilirubin 0.3 mg/dL (0.2-1.0); Total Protein 7.4 g/dL (6.4-8.9)
[2020-08-05] MEDS ORDERED: NS 0.9% 50 ML 50 ML ONE (22:53)
[2020-08-05] MEDS ORDERED: NS 0.9% 1000 ml BAG 1,000 ML IV ONE ×2 (23:02→23:59)
[2020-08-06] MEDS ORDERED: NS 0.9% 1000 ml BAG 1,000 ML IV SCH ×2 (01:00→02:57)
[2020-08-06] MEDS ORDERED: NS 0.9% 1000 ml BAG 1,000 ML IV ONE (01:40)
[2020-08-06] MEDS ORDERED: Vancomycin per Pharmacy 1 EA NOTE FOLLOW UP SCH (02:00)
[2020-08-06] MEDS ORDERED: Cefepime ADVAN 1 GM in NS 0.9% 50 ML 50 ML IVPB SCH (02:00)
[2020-08-06] MEDS ORDERED: Cefepime 1 GM IV - ED ONCE IV ONE (02:08)
[2020-08-06 03:06] LABS: Urine Appearance Clear; Urine Bilirubin Negative (Negative); Urine Blood 1+ (Negative); Urine Color Straw; Urine Glucose 3+(>=500 mg/dL) (Negative); Urine Ketones Negative (Negative); Urine Nitrite Negative (Negative); Urine Protein 2+(100 mg/dL) (Negative); Urine Specific Gravity 1.015 (1.010-1.030); Urine Urobilinogen Negative (Negative)
[2020-08-06 03:28] LABS: Urine Bacteria Absent (Absent); Urine Red Blood Cell Trace(0-2/hpf) (Absent); Urine White Blood Cell Trace(0-5/hpf) (Absent)
[2020-08-06] MEDS ORDERED: Vancomycin 2,000 MG in NS 0.9% 500 ml BAG 500 ML IVPB ONE (04:30)
[2020-08-06 04:41] LABS: ABS Eosinophils 0.2 10^3/ul (0-0.6); ABS Lymphocytes 1.8 10^3/ul (1.0-4.8); ABS Monocytes 0.5 10^3/ul (0-0.8); ABS Neutrophils 9.3 10^3/ul (1.5-7.7); Eosinophil % 1.3 %; Hematocrit 30 % (42-52); Hemoglobin 9.4 g/dL (14.0-18.0); Lymphocyte % 15.4 %; Mean Corpuscular HGB Conc 32 g/dL (31-36); Mean Corpuscular Hemoglobin 25 pg (27-31); Mean Corpuscular Volume 77 fL (80-94); Mean Platelet Volume 7.9 fL (7.4-10.4); Platelet Count 206 10^3/uL (150-450); Red Blood Count 3.84 10^6 /uL (4.18-5.48); Red Cell Distribution Width 14 % (10-15); White Blood Count 11.8 10^3/uL (3.5-10.8)
[2020-08-06 04:48] LABS: INR 1.03 (0.82-1.09)
[2020-08-06 04:56] LABS: BUN/Creatinine Ratio 14.7 (8-20); EGFR African American 48.9 (>60); EGFR Non-African American 40.4 (>60); Potassium 3.6 mmol/L (3.5-5.0)
[2020-08-06] MEDS ORDERED: Dextrose 50% Syringe 50 ml 25 GM/50 ML SYRINGE IV PUSH PRN (05:30)
[2020-08-06] MEDS: Heparin 5000 UNITS/ML 1 mL VIAL SUBCUT SCH ×3 (05:33→22:40)
[2020-08-06 05:43] LABS: Calcium 7.8 mg/dL (8.6-10.3); EGFR African American 47.9 (>60); EGFR Non-African American 39.6 (>60); Magnesium 1.8 mg/dL (1.9-2.7); Potassium 3.8 mmol/L (3.5-5.0)
[2020-08-06] MEDS: metroNIDAZOLE IV 500 MG/100ML 500 MG/100 ML BAG IVPB SCH ×2 (06:16→21:03)
[2020-08-06] MEDS ORDERED: Magnesium Sulfate IV 1GM/100ML 1 GM/100 ML BAG IV ONE (06:36)
[2020-08-06] MEDS ORDERED: Potassium Chlor 20 meq TAB.ER PO ONE (06:47)
[2020-08-06] MEDS: SPIRIVA Respimat (tiotropium) 2.5 mcg/inh Inhaler INH SCH (08:04)
[2020-08-06] MEDS: Insulin GLARGINE 100 un/ml 10 ml VIAL SUBCUT SCH ×2 (08:21→22:41)
[2020-08-06] MEDS: Aspirin EC 81 mg TAB.EC (enteric coated) PO SCH (08:22)
[2020-08-06] MEDS: Potassium Chlor 10 meq TAB PO SCH (08:23)
[2020-08-06] MEDS ORDERED: Lactated Ringers 1000 ml BAG 1,000 ML IV SCH (09:00)
[2020-08-06] MEDS ORDERED: Budesonide/Formote 80/4.5(NF) MDI INH SCH (09:00)
[2020-08-06] MEDS: Cefepime 1 GM in Dextrose 1 GM/50 ML BAG IV SCH (13:55)
[2020-08-06] MEDS: Vancomycin 750 MG in NS 0.9% 250 ML IVPB SCH (22:32)
[2020-08-07] MEDS: Cefepime 1 GM in Dextrose 1 GM/50 ML BAG IV SCH ×2 (01:52→13:37)
[2020-08-07] MEDS: metroNIDAZOLE IV 500 MG/100ML 500 MG/100 ML BAG IVPB SCH ×2 (06:14→16:53)
[2020-08-07] MEDS: Heparin 5000 UNITS/ML 1 mL VIAL SUBCUT SCH ×3 (06:14→20:00)
[2020-08-07 06:19] LABS: Hematocrit 28 % (42-52); Mean Corpuscular HGB Conc 32 g/dL (31-36); Mean Corpuscular Hemoglobin 25 pg (27-31); Mean Corpuscular Volume 78 fL (80-94); Mean Platelet Volume 8.2 fL (7.4-10.4); Platelet Count 205 10^3/uL (150-450); Red Cell Distribution Width 14 % (10-15); White Blood Count 8.5 10^3/uL (3.5-10.8)
[2020-08-07 06:43] LABS: BUN/Creatinine Ratio 15.9 (8-20); Calcium 7.9 mg/dL (8.6-10.3); EGFR African American 45.2 (>60); EGFR Non-African American 37.3 (>60); Magnesium 1.9 mg/dL (1.9-2.7); Potassium 4.2 mmol/L (3.5-5.0)
[2020-08-07] MEDS: Aspirin EC 81 mg TAB.EC (enteric coated) PO SCH (08:44)
[2020-08-07] MEDS: Potassium Chlor 10 meq TAB PO SCH (08:44)
[2020-08-07] MEDS: Vancomycin 750 MG in NS 0.9% 250 ML IVPB SCH (08:45)
[2020-08-07] MEDS: Insulin GLARGINE 100 un/ml 10 ml VIAL SUBCUT SCH ×2 (08:48→19:59)
[2020-08-07] MEDS: SPIRIVA Respimat (tiotropium) 2.5 mcg/inh Inhaler INH SCH (09:26)
[2020-08-07] MEDS: ceFAZolin 2 GM PREMIX 2 GM/50 ML BAG IVPB SCH (18:28)
[2020-08-08] MEDS: ceFAZolin 2 GM PREMIX 2 GM/50 ML BAG IVPB SCH ×3 (03:08→17:38)
[2020-08-08] MEDS: Heparin 5000 UNITS/ML 1 mL VIAL SUBCUT SCH ×3 (04:27→20:13)
[2020-08-08 07:05] LABS: ABS Eosinophils 0.2 10^3/ul (0-0.6); ABS Lymphocytes 1.5 10^3/ul (1.0-4.8); ABS Monocytes 0.4 10^3/ul (0-0.8); ABS Neutrophils 6.3 10^3/ul (1.5-7.7); Eosinophil % 2.8 %; Hematocrit 28 % (42-52); Lymphocyte % 17.5 %; Mean Corpuscular HGB Conc 32 g/dL (31-36); Mean Corpuscular Hemoglobin 25 pg (27-31); Mean Corpuscular Volume 78 fL (80-94); Platelet Count 211 10^3/uL (150-450); Red Blood Count 3.63 10^6 /uL (4.18-5.48); Red Cell Distribution Width 14 % (10-15); White Blood Count 8.5 10^3/uL (3.5-10.8)
[2020-08-08] MEDS: SPIRIVA Respimat (tiotropium) 2.5 mcg/inh Inhaler INH SCH ×2 (07:13→11:23)
[2020-08-08 07:16] LABS: Anion Gap 3 mmol/L (2-11); BUN/Creatinine Ratio 16.1 (8-20); Blood Urea Nitrogen 28 mg/dL (6-24); CO2 Carbon Dioxide 29 mmol/L (22-32); Calcium 8.2 mg/dL (8.6-10.3); Chloride 106 mmol/L (101-111); EGFR African American 47.6 (>60); EGFR Non-African American 39.3 (>60); Glucose 230 mg/dL (70-100); Potassium 4.3 mmol/L (3.5-5.0); Sodium 138 mmol/L (135-145)
[2020-08-08] MEDS ORDERED: Vancomycin Trough Check NOTE FOLLOW UP ONE (07:30)
[2020-08-08 07:33] LABS: % Iron Saturation 9 % (15-55); Iron 20 ug/dL (50-212); Total Iron Binding Capacity 221 mcg/dL (250-450); Transferrin 158 mg/dL (203-362); Unsaturated Iron Binding < 206 ug/dL
[2020-08-08 07:54] LABS: Ferritin 69.4 ng/mL (24-336)
[2020-08-08] MEDS: Aspirin EC 81 mg TAB.EC (enteric coated) PO SCH (11:17)
[2020-08-08] MEDS: Potassium Chlor 10 meq TAB PO SCH (11:18)
[2020-08-08] MEDS: Insulin GLARGINE 100 un/ml 10 ml VIAL SUBCUT SCH ×2 (11:21→20:11)
[2020-08-09] MEDS: ceFAZolin 2 GM PREMIX 2 GM/50 ML BAG IVPB SCH ×3 (02:17→17:36)
[2020-08-09] MEDS: Heparin 5000 UNITS/ML 1 mL VIAL SUBCUT SCH ×3 (04:51→20:12)
[2020-08-09] MEDS: SPIRIVA Respimat (tiotropium) 2.5 mcg/inh Inhaler INH SCH (07:42)
[2020-08-09] MEDS: Aspirin EC 81 mg TAB.EC (enteric coated) PO SCH (10:02)
[2020-08-09] MEDS: Potassium Chlor 10 meq TAB PO SCH (10:04)
[2020-08-09] MEDS ORDERED: Insulin GLARGINE 100 un/ml 10 ml VIAL SUBCUT ONE (10:18)
[2020-08-09] MEDS: Insulin GLARGINE 100 un/ml 10 ml VIAL SUBCUT SCH ×2 (12:19→20:11)
[2020-08-10] MEDS: ceFAZolin 2 GM PREMIX 2 GM/50 ML BAG IVPB SCH ×3 (01:57→17:36)
[2020-08-10] MEDS: Heparin 5000 UNITS/ML 1 mL VIAL SUBCUT SCH ×3 (06:05→22:23)
[2020-08-10 06:38] LABS: INR 1.18 (0.82-1.09)
[2020-08-10 06:39] LABS: ABS Eosinophils 0.2 10^3/ul (0-0.6); ABS Lymphocytes 1.3 10^3/ul (1.0-4.8); ABS Monocytes 0.7 10^3/ul (0-0.8); ABS Neutrophils 7.2 10^3/ul (1.5-7.7); Eosinophil % 2.1 %; Hematocrit 27 % (42-52); Hemoglobin 8.8 g/dL (14.0-18.0); Lymphocyte % 14.2 %; Mean Corpuscular HGB Conc 32 g/dL (31-36); Mean Corpuscular Hemoglobin 25 pg (27-31); Mean Corpuscular Volume 78 fL (80-94); Mean Platelet Volume 8.2 fL (7.4-10.4); Platelet Count 227 10^3/uL (150-450); Red Blood Count 3.53 10^6 /uL (4.18-5.48); Red Cell Distribution Width 14 % (10-15); White Blood Count 9.5 10^3/uL (3.5-10.8)
[2020-08-10 06:51] LABS: BUN/Creatinine Ratio 15.4 (8-20); Calcium 8.4 mg/dL (8.6-10.3); EGFR African American 47.3 (>60); EGFR Non-African American 39.1 (>60); Magnesium 1.9 mg/dL (1.9-2.7); Potassium 4.3 mmol/L (3.5-5.0)
[2020-08-10] MEDS: SPIRIVA Respimat (tiotropium) 2.5 mcg/inh Inhaler INH SCH (07:57)
[2020-08-10] MEDS: Insulin GLARGINE 100 un/ml 10 ml VIAL SUBCUT SCH ×2 (09:03→22:22)
[2020-08-10] MEDS: Aspirin EC 81 mg TAB.EC (enteric coated) PO SCH (09:04)
[2020-08-10] MEDS: Potassium Chlor 10 meq TAB PO SCH (09:06)
[2020-08-10] MEDS ORDERED: Iohexol 350 (CONTRAST) 200 ML MDV IV ONE (10:24)
[2020-08-10] MEDS ORDERED: Iodixanol 320 (CONTRAST) 100 ML SDV ONE (10:24)
[2020-08-10] MEDS ORDERED: Lidocaine 1% VIAL 10 MG/ML VIAL ONE (10:24)
[2020-08-10] MEDS ORDERED: Heparin 2 UNITS/ML 1000 mls 2,000 ML IV ONE (10:24)
[2020-08-10] MEDS ORDERED: fentaNYL 100 mcg/2 ml 50 MCG/ML VIAL ONE ×2 (10:43→11:03)
[2020-08-10] MEDS ORDERED: Midazolam 5 mg/5 ml VIAL 1 mg/ml 5 ml VIAL (5 mg) ONE (10:43)
[2020-08-10] MEDS ORDERED: Heparin 1,000 UNIT/ML 10 ml (10,000 UNITS) CATHLAB/DIALYSIS ONE (11:42)
[2020-08-10] MEDS ORDERED: nitroGLYCERIN DRIP 25,000 MCG/250 ML BTL ONE (12:03)
[2020-08-11] MEDS: ceFAZolin 2 GM PREMIX 2 GM/50 ML BAG IVPB SCH ×3 (02:22→17:28)
[2020-08-11] MEDS ORDERED: Lactated Ringers 1000 ml BAG 1,000 ML IV SCH (06:00)
[2020-08-11] MEDS ORDERED: Buffered Lidocaine 1% SYRIN 1 ml INTRADERM ONE (06:00)
[2020-08-11 06:32] LABS: ABS Eosinophils 0.2 10^3/ul (0-0.6); ABS Lymphocytes 1.2 10^3/ul (1.0-4.8); ABS Monocytes 0.7 10^3/ul (0-0.8); ABS Neutrophils 8.3 10^3/ul (1.5-7.7); Eosinophil % 1.6 %; Hematocrit 26 % (42-52); Hemoglobin 8.5 g/dL (14.0-18.0); Lymphocyte % 11.7 %; Mean Corpuscular HGB Conc 32 g/dL (31-36); Mean Corpuscular Hemoglobin 25 pg (27-31); Mean Corpuscular Volume 77 fL (80-94); Mean Platelet Volume 8.1 fL (7.4-10.4); Platelet Count 243 10^3/uL (150-450); Red Blood Count 3.38 10^6 /uL (4.18-5.48); Red Cell Distribution Width 14 % (10-15); White Blood Count 10.4 10^3/uL (3.5-10.8)
[2020-08-11 06:38] LABS: INR 1.16 (0.82-1.09)
[2020-08-11 06:40] LABS: BUN/Creatinine Ratio 16.1 (8-20); C Reactive Protein 193.36 mg/L (<8.01); Calcium 8.3 mg/dL (8.6-10.3); EGFR African American 40.8 (>60); EGFR Non-African American 33.7 (>60); Potassium 4.5 mmol/L (3.5-5.0)
[2020-08-11] MEDS: SPIRIVA Respimat (tiotropium) 2.5 mcg/inh Inhaler INH SCH (07:44)
[2020-08-11] MEDS: Potassium Chlor 10 meq TAB PO SCH (08:20)
[2020-08-11] MEDS: Insulin GLARGINE 100 un/ml 10 ml VIAL SUBCUT SCH ×2 (08:20→20:34)
[2020-08-11] MEDS: Aspirin EC 81 mg TAB.EC (enteric coated) PO SCH (08:20)
[2020-08-11] MEDS ORDERED: Bupivacaine 0.5% SDV PF 30ML VIAL ONE (08:43)
[2020-08-11] MEDS ORDERED: fentaNYL 100 mcg/2 ml 50 MCG/ML VIAL ONE (11:33)
[2020-08-11] MEDS ORDERED: Propofol 10 MG/ML 20 ML BTL ONE ×2 (11:34→12:00)
[2020-08-11] MEDS ORDERED: Midazolam 2 mg/2 ml VIAL 1 mg/ml 2 ml VIAL (2 mg) ONE (11:34)
[2020-08-11] MEDS ORDERED: Phenylephrine 40 mcg/mL 10mL (400mcg) SYRINGE ONE ×2 (11:34→12:29)
[2020-08-11] MEDS ORDERED: Lidocaine 2% PF 5 ML VIAL ONE (11:34)
[2020-08-11] MEDS ORDERED: HYDROmorphone 1 MG/1 ML SYRINGE IV PRN (12:39)
[2020-08-11] MEDS ORDERED: Ondansetron 4 mg VIAL 2 MG/ML 2 ml VIAL IV PRN (12:39)
[2020-08-11] MEDS ORDERED: Naloxone 0.4 mg VIAL 0.4 mg/ml 1 ml VIAL IV PRN (12:39)
[2020-08-11] MEDS ORDERED: fentaNYL 100 mcg/2 ml 50 MCG/ML VIAL IV PRN (12:39)
[2020-08-11] MEDS: Heparin 5000 UNITS/ML 1 mL VIAL SUBCUT SCH (21:50)
[2020-08-12] MEDS: ceFAZolin 2 GM PREMIX 2 GM/50 ML BAG IVPB SCH ×3 (01:26→17:47)
[2020-08-12] MEDS: Heparin 5000 UNITS/ML 1 mL VIAL SUBCUT SCH ×2 (05:32→12:31)
[2020-08-12 06:05] LABS: ABS Eosinophils 0.2 10^3/ul (0-0.6); ABS Lymphocytes 1.2 10^3/ul (1.0-4.8); ABS Monocytes 0.8 10^3/ul (0-0.8); ABS Neutrophils 9.3 10^3/ul (1.5-7.7); Eosinophil % 1.6 %; Hematocrit 25 % (42-52); Hemoglobin 7.7 g/dL (14.0-18.0); Lymphocyte % 10.7 %; Mean Corpuscular HGB Conc 31 g/dL (31-36); Mean Corpuscular Hemoglobin 24 pg (27-31); Mean Corpuscular Volume 78 fL (80-94); Mean Platelet Volume 7.9 fL (7.4-10.4); Platelet Count 255 10^3/uL (150-450); Red Blood Count 3.17 10^6 /uL (4.18-5.48); Red Cell Distribution Width 15 % (10-15); White Blood Count 11.5 10^3/uL (3.5-10.8)
[2020-08-12 06:26] LABS: BUN/Creatinine Ratio 15.4 (8-20); Calcium 8.5 mg/dL (8.6-10.3); EGFR Non-African American 28.9 (>60); Potassium 4.7 mmol/L (3.5-5.0)
[2020-08-12] MEDS: SPIRIVA Respimat (tiotropium) 2.5 mcg/inh Inhaler INH SCH (07:53)
[2020-08-12] MEDS: Insulin GLARGINE 100 un/ml 10 ml VIAL SUBCUT SCH (09:18)
[2020-08-12] MEDS: Aspirin EC 81 mg TAB.EC (enteric coated) PO SCH (10:08)
[2020-08-12] MEDS: Potassium Chlor 10 meq TAB PO SCH (10:11)
[2020-08-13] MEDS: Heparin 5000 UNITS/ML 1 mL VIAL SUBCUT SCH ×4 (00:01→20:08)
[2020-08-13] MEDS: Insulin GLARGINE 100 un/ml 10 ml VIAL SUBCUT SCH ×3 (00:01→20:08)
[2020-08-13] MEDS: ceFAZolin 2 GM PREMIX 2 GM/50 ML BAG IVPB SCH ×3 (02:19→18:32)
[2020-08-13 05:28] LABS: ABS Eosinophils 0.2 10^3/ul (0-0.6); ABS Lymphocytes 1.4 10^3/ul (1.0-4.8); ABS Monocytes 0.8 10^3/ul (0-0.8); Eosinophil % 1.4 %; Hematocrit 25 % (42-52); Hemoglobin 7.9 g/dL (14.0-18.0); Lymphocyte % 12.2 %; Mean Corpuscular HGB Conc 32 g/dL (31-36); Mean Corpuscular Hemoglobin 25 pg (27-31); Mean Corpuscular Volume 78 fL (80-94); Platelet Count 270 10^3/uL (150-450); Red Blood Count 3.19 10^6 /uL (4.18-5.48); Red Cell Distribution Width 15 % (10-15); White Blood Count 11.4 10^3/uL (3.5-10.8)
[2020-08-13 05:55] LABS: BUN/Creatinine Ratio 15.4 (8-20); Calcium 8.2 mg/dL (8.6-10.3); EGFR African American 31.8 (>60); EGFR Non-African American 26.3 (>60); Potassium 4.7 mmol/L (3.5-5.0)
[2020-08-13] MEDS ORDERED: Furosemide 40 mg/4 ml IV VIAL IV ONE (07:36)
[2020-08-13] MEDS: SPIRIVA Respimat (tiotropium) 2.5 mcg/inh Inhaler INH SCH (08:12)
[2020-08-13] MEDS: Potassium Chlor 10 meq TAB PO SCH (10:05)
[2020-08-13] MEDS: Aspirin EC 81 mg TAB.EC (enteric coated) PO SCH (10:05)
[2020-08-14] MEDS: ceFAZolin 2 GM PREMIX 2 GM/50 ML BAG IVPB SCH ×2 (02:09→10:53)
[2020-08-14] MEDS: Heparin 5000 UNITS/ML 1 mL VIAL SUBCUT SCH ×3 (05:41→22:02)
[2020-08-14 07:15] LABS: ABS Eosinophils 0.1 10^3/ul (0-0.6); ABS Lymphocytes 1.3 10^3/ul (1.0-4.8); ABS Monocytes 0.9 10^3/ul (0-0.8); ABS Neutrophils 11.1 10^3/ul (1.5-7.7); Eosinophil % 1.1 %; Hematocrit 25 % (42-52); Hemoglobin 7.7 g/dL (14.0-18.0); Lymphocyte % 9.3 %; Mean Corpuscular HGB Conc 31 g/dL (31-36); Mean Corpuscular Hemoglobin 25 pg (27-31); Mean Corpuscular Volume 79 fL (80-94); Platelet Count 282 10^3/uL (150-450); Red Blood Count 3.15 10^6 /uL (4.18-5.48); Red Cell Distribution Width 15 % (10-15); White Blood Count 13.4 10^3/uL (3.5-10.8)
[2020-08-14 07:27] LABS: ALT < 3 U/L (7-52); AST 11 U/L (13-39); Albumin 2.9 g/dL (3.2-5.2); Albumin/Globulin Ratio 0.7 (1-3); Alkaline Phosphatase 80 U/L (34-104); Anion Gap 8 mmol/L (2-11); BUN/Creatinine Ratio 15.6 (8-20); Blood Urea Nitrogen 49 mg/dL (6-24); CO2 Carbon Dioxide 22 mmol/L (22-32); Calcium 8.3 mg/dL (8.6-10.3); Chloride 107 mmol/L (101-111); EGFR African American 24.1 (>60); EGFR Non-African American 19.9 (>60); Globulin 4.2 g/dL (2-4); Glucose 152 mg/dL (70-100); Magnesium 2.1 mg/dL (1.9-2.7); Potassium 4.9 mmol/L (3.5-5.0); Sodium 137 mmol/L (135-145); Total Protein 7.1 g/dL (6.4-8.9)
[2020-08-14 07:29] LABS: Digoxin 1.3 ng/ml (0.8-2.0)
[2020-08-14] MEDS: SPIRIVA Respimat (tiotropium) 2.5 mcg/inh Inhaler INH SCH (08:11)
[2020-08-14] MEDS: Aspirin EC 81 mg TAB.EC (enteric coated) PO SCH (08:44)
[2020-08-14] MEDS: Potassium Chlor 10 meq TAB PO SCH (08:44)
[2020-08-14] MEDS: Insulin GLARGINE 100 un/ml 10 ml VIAL SUBCUT SCH ×2 (08:47→19:50)
[2020-08-14 14:45] LABS: Urine Appearance Turbid; Urine Bilirubin Negative (Negative); Urine Blood 2+ (Negative); Urine Color Yellow; Urine Glucose 1+(50 mg/dL) (Negative); Urine Ketones Negative (Negative); Urine Nitrite Negative (Negative); Urine Protein 2+(100 mg/dL) (Negative); Urine Urobilinogen Negative (Negative)
[2020-08-14 14:47] LABS: Urine Bacteria Absent (Absent); Urine Red Blood Cell Absent (Absent); Urine White Blood Cell 2+(11-20/hpf) (Absent)
[2020-08-14 15:37] LABS: Urine Creatinine Concentration 146.35 mg/dL
[2020-08-14] MEDS: ceFAZolin 1 GM Q12H (ADVAN) IVPB SCH (22:38)
[2020-08-15] MEDS: Heparin 5000 UNITS/ML 1 mL VIAL SUBCUT SCH ×3 (05:45→21:52)
[2020-08-15 07:31] LABS: Calcium 8.1 mg/dL (8.6-10.3); Magnesium 2.3 mg/dL (1.9-2.7)
[2020-08-15 07:37] LABS: BUN/Creatinine Ratio 15.1 (8-20); EGFR African American 21.2 (>60); EGFR Non-African American 17.6 (>60)
[2020-08-15] MEDS: SPIRIVA Respimat (tiotropium) 2.5 mcg/inh Inhaler INH SCH (07:37)
[2020-08-15 07:40] LABS: ABS Eosinophils 0.1 10^3/ul (0-0.6); ABS Lymphocytes 1.2 10^3/ul (1.0-4.8); ABS Monocytes 0.6 10^3/ul (0-0.8); ABS Neutrophils 9.1 10^3/ul (1.5-7.7); Eosinophil % 0.9 %; Hematocrit 23 % (42-52); Hemoglobin 7.3 g/dL (14.0-18.0); Lymphocyte % 10.8 %; Mean Corpuscular HGB Conc 31 g/dL (31-36); Mean Corpuscular Hemoglobin 25 pg (27-31); Mean Corpuscular Volume 79 fL (80-94); Mean Platelet Volume 7.8 fL (7.4-10.4); Nucleated Red Blood Cells % 0.1; Platelet Count 296 10^3/uL (150-450); Red Blood Count 2.97 10^6 /uL (4.18-5.48); Red Cell Distribution Width 15 % (10-15)
[2020-08-15 08:13] LABS: Potassium 5.4 mmol/L (3.5-5.0)
[2020-08-15] MEDS: Insulin GLARGINE 100 un/ml 10 ml VIAL SUBCUT SCH ×2 (09:28→20:55)
[2020-08-15] MEDS: Potassium Chlor 10 meq TAB PO SCH (09:39)
[2020-08-15] MEDS: Patiromer POWDER 8.4 GM PAK PO SCH ×2 (09:40→20:47)
[2020-08-15] MEDS: Aspirin EC 81 mg TAB.EC (enteric coated) PO SCH (09:40)
[2020-08-15] MEDS ORDERED: Furosemide 100 mg/10 ml IV VIAL IV ONE (10:08)
[2020-08-15] MEDS: ceFAZolin 1 GM Q12H (ADVAN) IVPB SCH ×2 (10:38→22:20)
[2020-08-15] MEDS ORDERED: Succinylcholine 200 mg VIAL 20 mg/ml 10 ml VIAL (200 mg) ONE (12:37)
[2020-08-15 15:54] LABS: Urine Appearance Turbid; Urine Bilirubin Negative (Negative); Urine Blood 2+ (Negative); Urine Color Yellow; Urine Glucose Negative (Negative); Urine Ketones Negative (Negative); Urine Nitrite Negative (Negative); Urine Protein 2+(100 mg/dL) (Negative); Urine Specific Gravity 1.011 (1.010-1.030); Urine Urobilinogen Negative (Negative)
[2020-08-15 15:56] LABS: Urine Bacteria Absent (Absent); Urine Red Blood Cell 3+(>10/hpf) (Absent); Urine White Blood Cell 3+(>20/hpf) (Absent)
[2020-08-15 18:16] LABS: BUN/Creatinine Ratio 14.3 (8-20); Calcium 8.2 mg/dL (8.6-10.3); EGFR Non-African American 15.7 (>60)
[2020-08-15 18:19] LABS: Potassium 5.4 mmol/L (3.5-5.0)
[2020-08-16 04:40] LABS: ABS Basophils 0.1 10^3/ul (0-0.2); ABS Eosinophils 0.2 10^3/ul (0-0.6); ABS Lymphocytes 1.4 10^3/ul (1.0-4.8); ABS Monocytes 0.6 10^3/ul (0-0.8); ABS Neutrophils 6.2 10^3/ul (1.5-7.7); Eosinophil % 2.2 %; Hematocrit 24 % (42-52); Hemoglobin 7.4 g/dL (14.0-18.0); Mean Corpuscular HGB Conc 31 g/dL (31-36); Mean Corpuscular Hemoglobin 25 pg (27-31); Mean Corpuscular Volume 78 fL (80-94); Mean Platelet Volume 7.5 fL (7.4-10.4); Platelet Count 315 10^3/uL (150-450); Red Blood Count 3.02 10^6 /uL (4.18-5.48); Red Cell Distribution Width 15 % (10-15); White Blood Count 8.4 10^3/uL (3.5-10.8)
[2020-08-16 04:57] LABS: BUN/Creatinine Ratio 14.8 (8-20); Calcium 8.2 mg/dL (8.6-10.3); EGFR African American 18.6 (>60); EGFR Non-African American 15.4 (>60)
[2020-08-16 05:04] LABS: Potassium 5.1 mmol/L (3.5-5.0)
[2020-08-16] MEDS: Heparin 5000 UNITS/ML 1 mL VIAL SUBCUT SCH ×3 (05:52→21:46)
[2020-08-16] MEDS ORDERED: Lidocaine 2% JELLY 6 ML TOPICAL PRN (07:50)
[2020-08-16 07:51] LABS: Magnesium 2.2 mg/dL (1.9-2.7)
[2020-08-16] MEDS: Aspirin EC 81 mg TAB.EC (enteric coated) PO SCH ×2 (09:22→11:01)
[2020-08-16] MEDS: Patiromer POWDER 8.4 GM PAK PO SCH (09:23)
[2020-08-16] MEDS: Insulin GLARGINE 100 un/ml 10 ml VIAL SUBCUT SCH ×2 (09:23→21:45)
[2020-08-16] MEDS: ceFAZolin 1 GM Q12H (ADVAN) IVPB SCH ×2 (11:02→22:28)
[2020-08-16] MEDS: Dextrose 50% Syringe 50 ml 25 GM/50 ML SYRINGE IV PUSH PRN (12:48)
[2020-08-16] MEDS: SPIRIVA Respimat (tiotropium) 2.5 mcg/inh Inhaler INH SCH (15:27)
[2020-08-16 22:50] LABS: Urine Creatinine 79.94 mg/dL; Urine Creatinine Concentration 79.94 mg/dL
[2020-08-16 23:06] LABS: Urine Appearance Cloudy; Urine Bilirubin Negative (Negative); Urine Blood 3+ (Negative); Urine Color Yellow; Urine Glucose Negative (Negative); Urine Ketones Negative (Negative); Urine Nitrite Negative (Negative); Urine Protein 2+(100 mg/dL) (Negative); Urine Specific Gravity 1.013 (1.010-1.030); Urine Urobilinogen Negative (Negative)
[2020-08-16 23:12] LABS: Urine Bacteria Absent (Absent); Urine Red Blood Cell 3+(>10/hpf) (Absent); Urine Squamous Epithelial Cell Present (Absent); Urine White Blood Cell Trace(0-5/hpf) (Absent)
[2020-08-16 23:39] LABS: UR Microalbumin (mg/L) 468.9 mg/L; Urine Microalbumin/Creatinine 586.5 (<31)
[2020-08-17 04:42] LABS: ABS Eosinophils 0.2 10^3/ul (0-0.6); ABS Lymphocytes 1.1 10^3/ul (1.0-4.8); ABS Monocytes 0.6 10^3/ul (0-0.8); ABS Neutrophils 5.6 10^3/ul (1.5-7.7); Eosinophil % 2.1 %; Hematocrit 24 % (42-52); Hemoglobin 7.6 g/dL (14.0-18.0); Lymphocyte % 15.2 %; Mean Corpuscular HGB Conc 31 g/dL (31-36); Mean Corpuscular Hemoglobin 24 pg (27-31); Mean Corpuscular Volume 77 fL (80-94); Mean Platelet Volume 7.4 fL (7.4-10.4); Nucleated Red Blood Cells % 0.1; Platelet Count 325 10^3/uL (150-450); Red Blood Count 3.14 10^6 /uL (4.18-5.48); Red Cell Distribution Width 15 % (10-15); White Blood Count 7.5 10^3/uL (3.5-10.8)
[2020-08-17 04:52] LABS: BUN/Creatinine Ratio 16.1 (8-20); Calcium 8.1 mg/dL (8.6-10.3); EGFR African American 21.9 (>60); EGFR Non-African American 18.1 (>60); Potassium 5.1 mmol/L (3.5-5.0)
[2020-08-17] MEDS: Heparin 5000 UNITS/ML 1 mL VIAL SUBCUT SCH ×3 (05:18→22:01)
[2020-08-17] MEDS: SPIRIVA Respimat (tiotropium) 2.5 mcg/inh Inhaler INH SCH (07:26)
[2020-08-17] MEDS: Aspirin EC 81 mg TAB.EC (enteric coated) PO SCH (08:35)
[2020-08-17] MEDS: Insulin GLARGINE 100 un/ml 10 ml VIAL SUBCUT SCH ×2 (09:49→21:10)
[2020-08-17] MEDS ORDERED: Patiromer POWDER 8.4 GM PAK PO SCH (12:00)
[2020-08-17] MEDS: ceFAZolin 1 GM Q12H (ADVAN) IVPB SCH ×2 (12:11→22:01)
[2020-08-17] MEDS ORDERED: Haloperidol 5 mg/ml SDV IV/IM 5 MG/ML AMP ONE (22:41)
[2020-08-17] MEDS: Haloperidol 5 mg/ml SDV IV/IM 5 MG/ML AMP IV SLOW PU PRN (22:50)
[2020-08-18 05:31] LABS: Hematocrit 22 % (42-52); Hemoglobin 6.9 g/dL (14.0-18.0); Mean Corpuscular HGB Conc 31 g/dL (31-36); Mean Corpuscular Hemoglobin 24 pg (27-31); Mean Corpuscular Volume 79 fL (80-94); Mean Platelet Volume 7.3 fL (7.4-10.4); Platelet Count 301 10^3/uL (150-450); Red Blood Count 2.83 10^6 /uL (4.18-5.48); Red Cell Distribution Width 15 % (10-15); White Blood Count 6.2 10^3/uL (3.5-10.8)
[2020-08-18 05:47] LABS: BUN/Creatinine Ratio 18.1 (8-20); EGFR African American 25.6 (>60); EGFR Non-African American 21.1 (>60); Magnesium 2.1 mg/dL (1.9-2.7)
[2020-08-18] MEDS: Heparin 5000 UNITS/ML 1 mL VIAL SUBCUT SCH ×3 (05:57→23:58)
[2020-08-18 05:58] LABS: Potassium 5.4 mmol/L (3.5-5.0)
[2020-08-18] MEDS: SPIRIVA Respimat (tiotropium) 2.5 mcg/inh Inhaler INH SCH (07:35)
[2020-08-18] MEDS ORDERED: Patiromer POWDER 8.4 GM PAK PO SCH (09:00)
[2020-08-18] MEDS: Insulin GLARGINE 100 un/ml 10 ml VIAL SUBCUT SCH ×2 (10:06→22:40)
[2020-08-18] MEDS: Aspirin EC 81 mg TAB.EC (enteric coated) PO SCH (10:06)
[2020-08-18] MEDS: Haloperidol 5 mg/ml SDV IV/IM 5 MG/ML AMP IV SLOW PU PRN (11:03)
[2020-08-18] MEDS: ceFAZolin 1 GM Q12H (ADVAN) IVPB SCH ×2 (11:03→23:58)
[2020-08-18 13:14] LABS: Complement C3 125 mg/dL (75 - 175)
[2020-08-18] MEDS: Patiromer POWDER 8.4 GM PAK PO ONE ×2 (13:57→14:11)
[2020-08-18] MEDS ORDERED: Furosemide 40 mg/4 ml IV VIAL IV ONE (14:15)
[2020-08-18 14:51] LABS: Hematocrit 24 % (42-52); Hemoglobin 7.6 g/dL (14.0-18.0)
[2020-08-18] MEDS ORDERED: Haloperidol 5 mg/ml SDV IV/IM 5 MG/ML AMP IV SLOW PU PRN (15:14)
[2020-08-19] MEDS ORDERED: Lorazepam PYXIS KEY ONE (00:25)
[2020-08-19] MEDS ORDERED: Lorazepam PYXIS KEY PRN (00:25)
[2020-08-19] MEDS ORDERED: LORazepam 2 mg VIAL 1 ml ONE (00:26)
[2020-08-19] MEDS: LORazepam 2 mg VIAL 1 ml IV PUSH PRN (00:29)
[2020-08-19 04:48] LABS: Hematocrit 21 % (42-52); Hemoglobin 6.8 g/dL (14.0-18.0); Mean Corpuscular HGB Conc 32 g/dL (31-36); Mean Corpuscular Hemoglobin 25 pg (27-31); Mean Corpuscular Volume 77 fL (80-94); Mean Platelet Volume 7.2 fL (7.4-10.4); Platelet Count 295 10^3/uL (150-450); Red Blood Count 2.75 10^6 /uL (4.18-5.48); Red Cell Distribution Width 15 % (10-15); White Blood Count 6.4 10^3/uL (3.5-10.8)
[2020-08-19 05:10] LABS: BUN/Creatinine Ratio 18.6 (8-20); Calcium 7.8 mg/dL (8.6-10.3); EGFR African American 30.2 (>60); Potassium 4.9 mmol/L (3.5-5.0)
[2020-08-19 05:31] LABS: Ferritin 96.4 ng/mL (24-336)
[2020-08-19] MEDS: Heparin 5000 UNITS/ML 1 mL VIAL SUBCUT SCH ×3 (05:54→21:32)
[2020-08-19] MEDS: Aspirin EC 81 mg TAB.EC (enteric coated) PO SCH (09:09)
[2020-08-19] MEDS: Insulin GLARGINE 100 un/ml 10 ml VIAL SUBCUT SCH ×2 (09:10→21:31)
[2020-08-19] MEDS: ceFAZolin 1 GM Q12H (ADVAN) IVPB SCH ×2 (11:49→23:19)
[2020-08-20 05:44] LABS: Hematocrit 26 % (42-52); Hemoglobin 7.8 g/dL (14.0-18.0); Mean Corpuscular HGB Conc 31 g/dL (31-36); Mean Corpuscular Hemoglobin 24 pg (27-31); Mean Corpuscular Volume 79 fL (80-94); Mean Platelet Volume 7.3 fL (7.4-10.4); Platelet Count 274 10^3/uL (150-450); Red Blood Count 3.23 10^6 /uL (4.18-5.48); Red Cell Distribution Width 15 % (10-15); White Blood Count 7.6 10^3/uL (3.5-10.8)
[2020-08-20] MEDS: Heparin 5000 UNITS/ML 1 mL VIAL SUBCUT SCH ×3 (05:47→20:32)
[2020-08-20 05:59] LABS: BUN/Creatinine Ratio 19.2 (8-20); Calcium 8.1 mg/dL (8.6-10.3); EGFR African American 32.8 (>60); EGFR Non-African American 27.1 (>60); Potassium 4.9 mmol/L (3.5-5.0)
[2020-08-20] MEDS: Insulin GLARGINE 100 un/ml 10 ml VIAL SUBCUT SCH ×2 (08:49→20:33)
[2020-08-20] MEDS: Aspirin EC 81 mg TAB.EC (enteric coated) PO SCH (08:54)
[2020-08-20] MEDS: ceFAZolin 1 GM Q12H (ADVAN) IVPB SCH ×2 (11:19→23:50)
[2020-08-21] MEDS: Heparin 5000 UNITS/ML 1 mL VIAL SUBCUT SCH ×3 (05:36→20:36)
[2020-08-21 06:11] LABS: BUN/Creatinine Ratio 20.7 (8-20); Calcium 8.1 mg/dL (8.6-10.3); EGFR African American 38.7 (>60)
[2020-08-21] MEDS ORDERED: Patiromer POWDER 8.4 GM PAK PO SCH (07:00)
[2020-08-21] MEDS: Aspirin EC 81 mg TAB.EC (enteric coated) PO SCH (08:04)
[2020-08-21] MEDS: Insulin GLARGINE 100 un/ml 10 ml VIAL SUBCUT SCH ×2 (08:05→21:10)
[2020-08-21] MEDS: Lactulose 30 ml UDC PO SCH ×2 (09:02→20:36)
[2020-08-21] MEDS: ceFAZolin 1 GM Q12H (ADVAN) IVPB SCH (11:50)
[2020-08-21 15:58] LABS: BUN/Creatinine Ratio 19.7 (8-20); Blood Urea Nitrogen 38 mg/dL (6-24); CO2 Carbon Dioxide 32 mmol/L (22-32); Calcium 7.9 mg/dL (8.6-10.3); Chloride 109 mmol/L (101-111); EGFR African American 42.2 (>60); EGFR Non-African American 34.9 (>60); Glucose 156 mg/dL (70-100); Potassium 5.8 mmol/L (3.5-5.0); Sodium 141 mmol/L (135-145)
[2020-08-21] MEDS: Furosemide 40 mg/4 ml IV VIAL IV SLOW PU SCH (16:48)
[2020-08-22] MEDS: ceFAZolin 1 GM Q12H (ADVAN) IVPB SCH ×3 (00:14→23:55)
[2020-08-22] MEDS: LORazepam 2 mg VIAL 1 ml IV PUSH PRN (01:36)
[2020-08-22] MEDS ORDERED: Flumazenil 0.5 mg/5 ml 0.1 MG/ML 5 ml VIAL IV ONE ×2 (02:49→03:07)
[2020-08-22] MEDS ORDERED: Flumazenil 0.5 mg/5 ml 0.1 MG/ML 5 ml VIAL ONE (02:49)
[2020-08-22 03:55] LABS: ABS Basophils 0.1 10^3/ul (0-0.2); ABS Eosinophils 0.2 10^3/ul (0-0.6); ABS Lymphocytes 1.7 10^3/ul (1.0-4.8); ABS Monocytes 0.8 10^3/ul (0-0.8); ABS Neutrophils 8.2 10^3/ul (1.5-7.7); Hematocrit 27 % (42-52); Hemoglobin 8.1 g/dL (14.0-18.0); Lymphocyte % 15.8 %; Mean Corpuscular HGB Conc 30 g/dL (31-36); Mean Corpuscular Hemoglobin 24 pg (27-31); Mean Corpuscular Volume 80 fL (80-94); Mean Platelet Volume 7.3 fL (7.4-10.4); Platelet Count 315 10^3/uL (150-450); Red Blood Count 3.37 10^6 /uL (4.18-5.48); Red Cell Distribution Width 15 % (10-15)
[2020-08-22 04:09] LABS: Calcium 8.2 mg/dL (8.6-10.3); EGFR African American 39.4 (>60); EGFR Non-African American 32.6 (>60); Magnesium 1.8 mg/dL (1.9-2.7)
[2020-08-22 04:14] LABS: Potassium 5.7 mmol/L (3.5-5.0)
[2020-08-22] MEDS ORDERED: Succinylcholine 200 mg VIAL 20 mg/ml 10 ml VIAL (200 mg) ONE (04:18)
[2020-08-22] MEDS ORDERED: Propofol 10 mg/ml 100 ML BTL 100 ML ONE (04:27)
[2020-08-22] MEDS ORDERED: Propofol 10 MG/ML 20 ML BTL ONE (04:27)
[2020-08-22] MEDS: Propofol 10 mg/ml 100 ML BTL 100 ML IV SCH ×3 (04:30→14:58)
[2020-08-22] MEDS ORDERED: Norepinephrine 16MCG/ML IVPRE 4,000 MCG/250 ML BAG IV ONE (04:47)
[2020-08-22] MEDS ORDERED: fentaNYL 100 mcg/2 ml 50 MCG/ML VIAL IV SLOW PU PRN (05:14)
[2020-08-22] MEDS ORDERED: Magnesium Sulfate 2 gm BAG 2 GM/50 ML BAG IVPB ONE (05:20)
[2020-08-22] MEDS: Propofol* 20 ML VIAL - FOR IV LINE PRIMING ONLY SCH ×2 (05:30→16:02)
[2020-08-22] MEDS ORDERED: Norepinephrine 16MCG/ML IVPRE 4,000 MCG/250 ML BAG IV SCH (05:30)
[2020-08-22] MEDS: Heparin 5000 UNITS/ML 1 mL VIAL SUBCUT SCH ×3 (05:41→22:03)
[2020-08-22] MEDS: Chlorhexidine MOUTHWASH 0.12% 15 ML UDC TOPICAL SCH ×3 (05:41→14:59)
[2020-08-22] MEDS ORDERED: Lactulose 30 ml UDC PO SCH (06:00)
[2020-08-22] MEDS ORDERED: Senna TAB 8.6 mg TAB PO ONE (06:11)
[2020-08-22] MEDS ORDERED: Sodium Polystyrene ORAL.SUSP 15 GM/60 ML BTL PO ONE ×2 (08:00→08:27)
[2020-08-22] MEDS: Aspirin EC 81 mg TAB.EC (enteric coated) PO SCH (08:20)
[2020-08-22] MEDS: Insulin GLARGINE 100 un/ml 10 ml VIAL SUBCUT SCH ×2 (09:42→22:01)
[2020-08-22] MEDS: Furosemide 40 mg/4 ml IV VIAL IV SLOW PU SCH (09:42)
[2020-08-22] MEDS ORDERED: Acetylcysteine INHALATION SOL 200 MG/ML NEB.SOLN 10 ML ONE (10:03)
[2020-08-22] MEDS ORDERED: Lorazepam PYXIS KEY PRN (10:10)
[2020-08-22] MEDS ORDERED: LORazepam 2 mg VIAL 1 ml IV PUSH ONE (10:10)
[2020-08-22] MEDS: Famotidine IV 10 MG/ML 2 ml VIAL (20 mg) IV SLOW PU SCH (10:19)
[2020-08-22] MEDS ORDERED: Albuterol (2.5 MG) 0.5 % CONC 0.5 ML NEB.SOLN INH ONE (11:00)
[2020-08-22] MEDS ORDERED: NS 0.9% 50 ML 50 ML ONE (23:45)
[2020-08-23 06:28] LABS: Hematocrit 23 % (42-52); Hemoglobin 7.4 g/dL (14.0-18.0); Mean Corpuscular HGB Conc 32 g/dL (31-36); Mean Corpuscular Hemoglobin 25 pg (27-31); Mean Corpuscular Volume 78 fL (80-94); Mean Platelet Volume 7.7 fL (7.4-10.4); Platelet Count 268 10^3/uL (150-450); Red Cell Distribution Width 15 % (10-15); White Blood Count 10.3 10^3/uL (3.5-10.8)
[2020-08-23 06:47] LABS: BUN/Creatinine Ratio 17.3 (8-20); Calcium 7.8 mg/dL (8.6-10.3); EGFR African American 42.7 (>60); EGFR Non-African American 35.3 (>60); Potassium 4.9 mmol/L (3.5-5.0)
[2020-08-23] MEDS ORDERED: Perflutren Lipid Microsphere 3 ML VIAL ONE (09:13)
[2020-08-23] MEDS: Heparin 5000 UNITS/ML 1 mL VIAL SUBCUT SCH ×3 (10:02→21:27)
[2020-08-23] MEDS: Famotidine IV 10 MG/ML 2 ml VIAL (20 mg) IV SLOW PU SCH (10:02)
[2020-08-23] MEDS: Insulin GLARGINE 100 un/ml 10 ml VIAL SUBCUT SCH ×2 (10:03→21:27)
[2020-08-23] MEDS: Furosemide 40 mg/4 ml IV VIAL IV SLOW PU SCH (10:03)
[2020-08-23] MEDS: Nystatin TOP POWDER 15 GM BTL TOPICAL SCH ×3 (11:18→21:33)
[2020-08-23] MEDS: ceFAZolin 1 GM Q12H (ADVAN) IVPB SCH ×2 (11:24→23:14)
[2020-08-24] MEDS: Heparin 5000 UNITS/ML 1 mL VIAL SUBCUT SCH ×3 (06:16→21:39)
[2020-08-24] MEDS: Dextrose 50% Syringe 50 ml 25 GM/50 ML SYRINGE IV PUSH PRN (06:22)
[2020-08-24 06:32] LABS: ABS Eosinophils 0.2 10^3/ul (0-0.6); ABS Lymphocytes 1.4 10^3/ul (1.0-4.8); ABS Monocytes 0.7 10^3/ul (0-0.8); ABS Neutrophils 6.1 10^3/ul (1.5-7.7); Eosinophil % 2.7 %; Hematocrit 23 % (42-52); Lymphocyte % 16.2 %; Mean Corpuscular HGB Conc 31 g/dL (31-36); Mean Corpuscular Hemoglobin 24 pg (27-31); Mean Corpuscular Volume 77 fL (80-94); Mean Platelet Volume 7.4 fL (7.4-10.4); Platelet Count 244 10^3/uL (150-450); Red Blood Count 2.91 10^6 /uL (4.18-5.48); Red Cell Distribution Width 15 % (10-15); White Blood Count 8.4 10^3/uL (3.5-10.8)
[2020-08-24] MEDS ORDERED: Insulin GLARGINE 100 un/ml 10 ml VIAL SUBCUT SCH (09:00)
[2020-08-24] MEDS: Nystatin TOP POWDER 15 GM BTL TOPICAL SCH ×3 (09:17→21:40)
[2020-08-24] MEDS: Famotidine IV 10 MG/ML 2 ml VIAL (20 mg) IV SLOW PU SCH (09:17)
[2020-08-24] MEDS: Lidocaine 2% JELLY 6 ML TOPICAL SCH ×3 (09:17→21:40)
[2020-08-24] MEDS ORDERED: Furosemide 40 mg/4 ml IV VIAL IV SLOW PU ONE (10:33)
[2020-08-24] MEDS: ceFAZolin 1 GM Q12H (ADVAN) IVPB SCH ×2 (11:24→23:09)
[2020-08-24 11:32] LABS: C Reactive Protein 106.52 mg/L (<8.01)
[2020-08-24] MEDS ORDERED: Megestrol 400 MG/10 ML SUSP PO SCH (13:00)
[2020-08-24] MEDS: Psyllium PAK PO SCH (14:39)
[2020-08-24] MEDS: Megestrol 400 MG/10 ML SUSP PO SCH (21:39)
[2020-08-25 05:01] LABS: Hematocrit 23 % (42-52); Hemoglobin 7.1 g/dL (14.0-18.0); Mean Corpuscular HGB Conc 31 g/dL (31-36); Mean Corpuscular Hemoglobin 24 pg (27-31); Mean Corpuscular Volume 79 fL (80-94); Mean Platelet Volume 7.6 fL (7.4-10.4); Platelet Count 240 10^3/uL (150-450); Red Blood Count 2.94 10^6 /uL (4.18-5.48); Red Cell Distribution Width 15 % (10-15); White Blood Count 7.8 10^3/uL (3.5-10.8)
[2020-08-25 05:20] LABS: BUN/Creatinine Ratio 16.7 (8-20); Calcium 7.8 mg/dL (8.6-10.3); EGFR Non-African American 33.9 (>60); Magnesium 1.6 mg/dL (1.9-2.7)
[2020-08-25 05:21] LABS: Potassium 5.5 mmol/L (3.5-5.0)
[2020-08-25] MEDS: Heparin 5000 UNITS/ML 1 mL VIAL SUBCUT SCH ×3 (06:50→21:39)
[2020-08-25] MEDS ORDERED: Sodium Polystyrene ORAL.SUSP 15 GM/60 ML BTL PO ONE ×2 (07:55→16:30)
[2020-08-25] MEDS: Nystatin TOP POWDER 15 GM BTL TOPICAL SCH ×3 (09:20→21:39)
[2020-08-25] MEDS: Megestrol 400 MG/10 ML SUSP PO SCH (09:20)
[2020-08-25] MEDS: Psyllium PAK PO SCH (09:20)
[2020-08-25] MEDS: Famotidine IV 10 MG/ML 2 ml VIAL (20 mg) IV SLOW PU SCH (09:20)
[2020-08-25] MEDS: Insulin GLARGINE 100 un/ml 10 ml VIAL SUBCUT SCH ×2 (10:00→21:39)
[2020-08-25] MEDS: Lidocaine 2% JELLY 6 ML TOPICAL SCH (10:00)
[2020-08-25] MEDS: ceFAZolin 1 GM Q12H (ADVAN) IVPB SCH ×2 (10:00→22:53)
[2020-08-25] MEDS ORDERED: Patiromer POWDER 8.4 GM PAK PO SCH (10:00)
[2020-08-25] MEDS: Patiromer POWDER 8.4 GM PAK PO SCH (11:36)
[2020-08-25] MEDS ORDERED: Magnesium Sulf 4 GM/100 ML IV 4,000 MG/100 ML BAG IVPB ONE (13:00)
[2020-08-25 15:36] LABS: BUN/Creatinine Ratio 17.2 (8-20); Calcium 7.8 mg/dL (8.6-10.3); EGFR African American 39.6 (>60); EGFR Non-African American 32.7 (>60)
[2020-08-25 15:40] LABS: Potassium 5.8 mmol/L (3.5-5.0)
[2020-08-25] MEDS ORDERED: Dextrose 50% Syringe 50 ml 25 GM/50 ML SYRINGE IV PUSH PRN ×2 (16:05→16:53)
[2020-08-25 20:25] LABS: BUN/Creatinine Ratio 16.7 (8-20); Calcium 7.9 mg/dL (8.6-10.3); EGFR African American 39.8 (>60); EGFR Non-African American 32.9 (>60)
[2020-08-25 20:33] LABS: Potassium 5.3 mmol/L (3.5-5.0)
[2020-08-26 04:05] LABS: Hematocrit 21 % (42-52); Hemoglobin 6.6 g/dL (14.0-18.0); Mean Corpuscular HGB Conc 31 g/dL (31-36); Mean Corpuscular Hemoglobin 24 pg (27-31); Mean Corpuscular Volume 78 fL (80-94); Mean Platelet Volume 7.4 fL (7.4-10.4); Platelet Count 218 10^3/uL (150-450); Red Cell Distribution Width 15 % (10-15); White Blood Count 6.6 10^3/uL (3.5-10.8)
[2020-08-26 04:40] LABS: BUN/Creatinine Ratio 16.8 (8-20); Calcium 7.5 mg/dL (8.6-10.3); EGFR African American 37.5 (>60); Magnesium 2.3 mg/dL (1.9-2.7)
[2020-08-26] MEDS: Heparin 5000 UNITS/ML 1 mL VIAL SUBCUT SCH ×3 (05:28→21:53)
[2020-08-26] MEDS: Insulin GLARGINE 100 un/ml 10 ml VIAL SUBCUT SCH ×2 (09:33→21:53)
[2020-08-26] MEDS: Nystatin TOP POWDER 15 GM BTL TOPICAL SCH ×3 (09:33→21:53)
[2020-08-26] MEDS: Famotidine IV 10 MG/ML 2 ml VIAL (20 mg) IV SLOW PU SCH (09:34)
[2020-08-26] MEDS: Psyllium PAK PO SCH (09:34)
[2020-08-26] MEDS: Megestrol 400 MG/10 ML SUSP PO SCH (09:34)
[2020-08-26] MEDS: ceFAZolin 1 GM Q12H (ADVAN) IVPB SCH ×2 (11:44→23:15)
[2020-08-26] MEDS: Patiromer POWDER 8.4 GM PAK PO SCH (11:45)
[2020-08-26 17:52] LABS: Hematocrit 24 % (42-52); Hemoglobin 7.6 g/dL (14.0-18.0); Mean Corpuscular HGB Conc 31 g/dL (31-36); Mean Corpuscular Hemoglobin 25 pg (27-31); Mean Corpuscular Volume 79 fL (80-94); Mean Platelet Volume 7.4 fL (7.4-10.4); Platelet Count 228 10^3/uL (150-450); Red Blood Count 3.07 10^6 /uL (4.18-5.48); Red Cell Distribution Width 15 % (10-15); White Blood Count 8.7 10^3/uL (3.5-10.8)
[2020-08-26 18:08] LABS: BUN/Creatinine Ratio 17.6 (8-20); Calcium 7.9 mg/dL (8.6-10.3); EGFR African American 39.4 (>60); EGFR Non-African American 32.6 (>60)
[2020-08-26 18:09] LABS: Potassium 5.2 mmol/L (3.5-5.0)
[2020-08-26] MEDS ORDERED: Patiromer POWDER 8.4 GM PAK PO ONE (18:34)
[2020-08-27 04:30] LABS: Hematocrit 23 % (42-52); Hemoglobin 7.3 g/dL (14.0-18.0); Mean Corpuscular HGB Conc 31 g/dL (31-36); Mean Corpuscular Hemoglobin 24 pg (27-31); Mean Corpuscular Volume 78 fL (80-94); Mean Platelet Volume 7.6 fL (7.4-10.4); Platelet Count 227 10^3/uL (150-450); Red Blood Count 2.99 10^6 /uL (4.18-5.48); Red Cell Distribution Width 15 % (10-15); White Blood Count 7.9 10^3/uL (3.5-10.8)
[2020-08-27 04:45] LABS: BUN/Creatinine Ratio 17.2 (8-20); Calcium 7.8 mg/dL (8.6-10.3); EGFR African American 39.6 (>60); EGFR Non-African American 32.7 (>60); Magnesium 2.2 mg/dL (1.9-2.7); Potassium 4.9 mmol/L (3.5-5.0)
[2020-08-27] MEDS: Heparin 5000 UNITS/ML 1 mL VIAL SUBCUT SCH (05:14)
[2020-08-27] MEDS: Insulin GLARGINE 100 un/ml 10 ml VIAL SUBCUT SCH ×2 (09:11→21:52)
[2020-08-27] MEDS: Nystatin TOP POWDER 15 GM BTL TOPICAL SCH ×3 (09:12→21:37)
[2020-08-27] MEDS: Psyllium PAK PO SCH (09:14)
[2020-08-27] MEDS: Patiromer POWDER 8.4 GM PAK PO SCH (10:38)
[2020-08-27] MEDS: Mometasone/Formoter 200/5 MDI INH SCH ×2 (10:50→19:59)
[2020-08-27] MEDS: ceFAZolin 1 GM Q12H (ADVAN) IVPB SCH ×2 (10:51→22:51)
[2020-08-27] MEDS ORDERED: Albuterol/Ipratropium NEB.SOL (2.5/0.5 MG) 3 ML NEB.SOLN INH PRN (18:50)
[2020-08-27] MEDS: SPIRIVA Respimat (tiotropium) 2.5 mcg/inh Inhaler INH SCH (19:59)
[2020-08-27] MEDS: Enoxaparin 30 MG/0.3 ML SYR SUBCUT SCH (21:36)
[2020-08-28] MEDS: Mometasone/Formoter 200/5 MDI INH SCH ×2 (09:37→20:12)
[2020-08-28] MEDS: SPIRIVA Respimat (tiotropium) 2.5 mcg/inh Inhaler INH SCH (09:38)
[2020-08-28] MEDS: Psyllium PAK PO SCH ×2 (10:32→10:40)
[2020-08-28] MEDS: Insulin GLARGINE 100 un/ml 10 ml VIAL SUBCUT SCH ×2 (10:32→21:15)
[2020-08-28] MEDS: Patiromer POWDER 8.4 GM PAK PO SCH (10:34)
[2020-08-28] MEDS: ceFAZolin 1 GM Q12H (ADVAN) IVPB SCH ×2 (10:34→23:07)
[2020-08-28] MEDS: Nystatin TOP POWDER 15 GM BTL TOPICAL SCH ×3 (10:34→21:14)
[2020-08-28] MEDS: Enoxaparin 30 MG/0.3 ML SYR SUBCUT SCH (21:04)
[2020-08-29] MEDS: SPIRIVA Respimat (tiotropium) 2.5 mcg/inh Inhaler INH SCH (08:17)
[2020-08-29] MEDS: Mometasone/Formoter 200/5 MDI INH SCH ×2 (08:17→19:49)
[2020-08-29] MEDS: Nystatin TOP POWDER 15 GM BTL TOPICAL SCH ×3 (09:19→21:18)
[2020-08-29] MEDS: Psyllium PAK PO SCH (09:19)
[2020-08-29] MEDS: Insulin GLARGINE 100 un/ml 10 ml VIAL SUBCUT SCH ×2 (10:13→21:14)
[2020-08-29] MEDS: ceFAZolin 1 GM Q12H (ADVAN) IVPB SCH ×2 (10:56→17:16)
[2020-08-29] MEDS: Enoxaparin 40 MG/0.4 ML SYR SUBCUT SCH (21:14)
[2020-08-30] MEDS: ceFAZolin 1 GM Q12H (ADVAN) IVPB SCH ×3 (03:24→18:22)
[2020-08-30 06:35] LABS: BUN/Creatinine Ratio 20.1 (8-20); Calcium 7.9 mg/dL (8.6-10.3); EGFR African American 52.8 (>60); EGFR Non-African American 43.6 (>60); Magnesium 1.7 mg/dL (1.9-2.7)
[2020-08-30 06:44] LABS: Potassium 5.1 mmol/L (3.5-5.0)
[2020-08-30] MEDS: Mometasone/Formoter 200/5 MDI INH SCH ×2 (08:55→19:57)
[2020-08-30] MEDS: SPIRIVA Respimat (tiotropium) 2.5 mcg/inh Inhaler INH SCH (08:56)
[2020-08-30 09:37] LABS: C Reactive Protein 57.22 mg/L (<8.01)
[2020-08-30] MEDS ORDERED: Patiromer POWDER 8.4 GM PAK PO ONE (10:00)
[2020-08-30] MEDS: Insulin GLARGINE 100 un/ml 10 ml VIAL SUBCUT SCH ×2 (10:12→21:24)
[2020-08-30] MEDS: Nystatin TOP POWDER 15 GM BTL TOPICAL SCH ×3 (10:13→21:24)
[2020-08-30] MEDS: Psyllium PAK PO SCH (10:13)
[2020-08-30] MEDS: Enoxaparin 40 MG/0.4 ML SYR SUBCUT SCH (21:24)
[2020-08-31] MEDS: ceFAZolin 1 GM Q12H (ADVAN) IVPB SCH (02:09)
[2020-08-31 05:57] LABS: BUN/Creatinine Ratio 20.5 (8-20); Calcium 8.1 mg/dL (8.6-10.3); EGFR African American 56.1 (>60); EGFR Non-African American 46.3 (>60); Magnesium 1.6 mg/dL (1.9-2.7); Potassium 4.7 mmol/L (3.5-5.0)
[2020-08-31] MEDS: SPIRIVA Respimat (tiotropium) 2.5 mcg/inh Inhaler INH SCH (08:58)
[2020-08-31] MEDS: Mometasone/Formoter 200/5 MDI INH SCH ×2 (08:58→19:24)
[2020-08-31] MEDS: ceFAZolin 2 GM PREMIX 2 GM/50 ML BAG IVPB SCH ×2 (09:31→17:09)
[2020-08-31] MEDS: Insulin GLARGINE 100 un/ml 10 ml VIAL SUBCUT SCH ×2 (09:31→21:44)
[2020-08-31] MEDS: Psyllium PAK PO SCH (09:33)
[2020-08-31] MEDS: Nystatin TOP POWDER 15 GM BTL TOPICAL SCH ×3 (09:38→21:39)
[2020-08-31] MEDS ORDERED: Iron Sucrose 200 MG in NS 0.9% 100 ml BAG 100 ML IVPB ONE (18:00)
[2020-08-31] MEDS ORDERED: Magnesium Sulfate 2 gm BAG 2 GM/50 ML BAG IVPB ONE (19:11)
[2020-08-31] MEDS: Enoxaparin 40 MG/0.4 ML SYR SUBCUT SCH (21:38)
[2020-09-01] MEDS: ceFAZolin 2 GM PREMIX 2 GM/50 ML BAG IVPB SCH ×2 (00:55→08:30)
[2020-09-01 06:22] LABS: BUN/Creatinine Ratio 22.2 (8-20); Potassium 4.4 mmol/L (3.5-5.0)
[2020-09-01 06:23] LABS: Calcium 7.9 mg/dL (8.6-10.3); EGFR African American 53.2 (>60)
[2020-09-01] MEDS: SPIRIVA Respimat (tiotropium) 2.5 mcg/inh Inhaler INH SCH (08:01)
[2020-09-01] MEDS: Mometasone/Formoter 200/5 MDI INH SCH ×2 (08:01→19:25)
[2020-09-01] MEDS ORDERED: Vancomycin 1,000 MG in NS 0.9% 250 ml 250 ML IVPB ONE (08:23)
[2020-09-01] MEDS: Psyllium PAK PO SCH (08:51)
[2020-09-01] MEDS: Nystatin TOP POWDER 15 GM BTL TOPICAL SCH ×3 (08:51→21:25)
[2020-09-01] MEDS: Insulin GLARGINE 100 un/ml 10 ml VIAL SUBCUT SCH ×2 (09:55→22:07)
[2020-09-01] MEDS ORDERED: Vancomycin 1500 MG IV - x ONCE IVPB ONE (10:00)
[2020-09-01] MEDS: Vancomycin 750 MG in NS 0.9% 250 ml 250 ML IVPB SCH (17:35)
[2020-09-01] MEDS: Enoxaparin 40 MG/0.4 ML SYR SUBCUT SCH (20:47)
[2020-09-02] MEDS: Vancomycin 750 MG in NS 0.9% 250 ml 250 ML IVPB SCH (05:59)
[2020-09-02] MEDS: Mometasone/Formoter 200/5 MDI INH SCH (08:30)
[2020-09-02] MEDS: SPIRIVA Respimat (tiotropium) 2.5 mcg/inh Inhaler INH SCH (08:31)
[2020-09-02] MEDS: Nystatin TOP POWDER 15 GM BTL TOPICAL SCH ×2 (08:57→12:35)
[2020-09-02] MEDS: Psyllium PAK PO SCH (08:57)
[2020-09-02] MEDS ORDERED: Lorazepam PYXIS KEY PRN (09:27)
[2020-09-02] MEDS: Insulin GLARGINE 100 un/ml 10 ml VIAL SUBCUT SCH (09:58)
[2020-09-02] MEDS: LORazepam 2 mg VIAL 1 ml IV PUSH PRN ×2 (09:58→13:27)
[2020-09-02 11:07] VITALS: BP 136/55
== END 2020-09-02 13:50 ==
LOC: ED 21:53 → ICU 08-06 00:50 → MED 08-06 15:11 → ICU 08-15 09:08 → SSU 08-27 06:30
PROVIDERS: ADMIT Internal Medicine; ATTEND Internal Medicine

== ENCOUNTER 2020-09-02 16:16 | Inpatient (IN) ==
[2020-09-02] MEDS ORDERED: Rocuronium 50 mg VIAL 10 mg/ml 5 ml VIAL (50 mg) IV ONE (16:29)
[2020-09-02] MEDS ORDERED: Rocuronium 50 mg VIAL 10 mg/ml 5 ml VIAL (50 mg) ONE ×2 (16:29→16:32)
[2020-09-02] MEDS ORDERED: Propofol 10 mg/ml 100 ML BTL 100 ML IV ONE (16:29)
[2020-09-02] MEDS ORDERED: Succinylcholine 200 mg VIAL 20 mg/ml 10 ml VIAL (200 mg) ONE (16:30)
[2020-09-02] MEDS ORDERED: Etomidate 20 mg/10 ml 2 MG/ML 10 ml VIAL IV ONE (16:31)
[2020-09-02 16:36] LABS: ABS Eosinophils 0.2 10^3/ul (0-0.6); ABS Lymphocytes 1.9 10^3/ul (1.0-4.8); ABS Monocytes 0.5 10^3/ul (0-0.8); ABS Neutrophils 6.5 10^3/ul (1.5-7.7); Eosinophil % 2.2 %; Hematocrit 25 % (42-52); Hemoglobin 7.6 g/dL (14.0-18.0); Lymphocyte % 20.8 %; Mean Corpuscular HGB Conc 31 g/dL (31-36); Mean Corpuscular Hemoglobin 25 pg (27-31); Mean Corpuscular Volume 80 fL (80-94); Mean Platelet Volume 7.9 fL (7.4-10.4); Platelet Count 244 10^3/uL (150-450); Red Blood Count 3.07 10^6 /uL (4.18-5.48); Red Cell Distribution Width 16 % (10-15); White Blood Count 9.2 10^3/uL (3.5-10.8)
[2020-09-02 16:44] LABS: INR 1.15 (0.82-1.09)
[2020-09-02 16:53] LABS: CO2 Carbon Dioxide 34 mmol/L (22-32); Chloride 104 mmol/L (101-111); Potassium 4.8 mmol/L (3.5-5.0); Sodium 141 mmol/L (135-145)
[2020-09-02 16:54] LABS: ALT < 3 U/L (7-52); AST 16 U/L (13-39); Albumin 3.1 g/dL (3.2-5.2); Albumin/Globulin Ratio 0.6 (1-3); Alkaline Phosphatase 55 U/L (34-104); Anion Gap 3 mmol/L (2-11); BUN/Creatinine Ratio 22.5 (8-20); Blood Urea Nitrogen 38 mg/dL (6-24); C Reactive Protein 48.99 mg/L (<8.01); Calcium 8.4 mg/dL (8.6-10.3); EGFR African American 49.2 (>60); EGFR Non-African American 40.7 (>60); Globulin 4.8 g/dL (2-4); Glucose 196 mg/dL (70-100); Magnesium 2.1 mg/dL (1.9-2.7); Total Protein 7.9 g/dL (6.4-8.9); Troponin I 0.01 ng/mL (<0.03)
[2020-09-02] MEDS ORDERED: Furosemide 40 mg/4 ml IV VIAL IV ONE (17:47)
[2020-09-02 17:51] LABS: Urine Appearance Turbid; Urine Bilirubin Negative (Negative); Urine Blood Negative (Negative); Urine Color Yellow; Urine Glucose Negative (Negative); Urine Ketones Negative (Negative); Urine Nitrite Negative (Negative); Urine Protein 2+(100 mg/dL) (Negative); Urine Specific Gravity 1.014 (1.010-1.030); Urine Urobilinogen Negative (Negative)
[2020-09-02 17:56] LABS: Urine Bacteria Absent (Absent); Urine Granular Casts Present (Absent); Urine Red Blood Cell Absent (Absent); Urine White Blood Cell 3+(>20/hpf) (Absent)
[2020-09-02] MEDS ORDERED: Iodixanol (CONTRAST) 320 MG/ML 100 ML SDV IV ONE (18:22)
[2020-09-02] MEDS ORDERED: Vancomycin 750 MG in NS 0.9% 250 ml 250 ML IVPB SCH (19:00)
[2020-09-02] MEDS: Propofol 10 mg/ml 100 ML BTL 100 ML IV SCH (19:46)
[2020-09-02] MEDS: Chlorhexidine MOUTHWASH 0.12% 15 ML UDC TOPICAL SCH ×2 (20:09→22:44)
[2020-09-02] MEDS: Nystatin TOP POWDER 15 GM BTL TOPICAL SCH (20:10)
[2020-09-02] MEDS: ceFAZolin 1 GM Q8H (ADVAN) IVPB SCH (20:10)
[2020-09-02] MEDS: Heparin 5000 UNITS/ML 1 mL VIAL SUBCUT SCH (22:37)
[2020-09-03] MEDS: Propofol 10 mg/ml 100 ML BTL 100 ML IV SCH ×2 (00:55→07:22)
[2020-09-03] MEDS: Chlorhexidine MOUTHWASH 0.12% 15 ML UDC TOPICAL SCH ×3 (01:58→09:23)
[2020-09-03] MEDS: ceFAZolin 1 GM Q8H (ADVAN) IVPB SCH (03:50)
[2020-09-03 04:12] LABS: Hematocrit 21 % (42-52); Hemoglobin 6.6 g/dL (14.0-18.0); Mean Corpuscular HGB Conc 32 g/dL (31-36); Mean Corpuscular Hemoglobin 25 pg (27-31); Mean Corpuscular Volume 79 fL (80-94); Mean Platelet Volume 8.1 fL (7.4-10.4); Platelet Count 201 10^3/uL (150-450); Red Blood Count 2.63 10^6 /uL (4.18-5.48); Red Cell Distribution Width 16 % (10-15); White Blood Count 6.9 10^3/uL (3.5-10.8)
[2020-09-03 04:26] LABS: BUN/Creatinine Ratio 22.8 (8-20); Calcium 8.1 mg/dL (8.6-10.3); EGFR African American 51.7 (>60); EGFR Non-African American 42.7 (>60); Magnesium 1.7 mg/dL (1.9-2.7); Potassium 3.8 mmol/L (3.5-5.0)
[2020-09-03] MEDS: Heparin 5000 UNITS/ML 1 mL VIAL SUBCUT SCH ×3 (05:47→21:21)
[2020-09-03] MEDS ORDERED: Magnesium Sulfate 2 gm BAG 2 GM/50 ML BAG IVPB ONE (08:11)
[2020-09-03] MEDS ORDERED: Piperacillin/Tazobac ADVAN 3.375 GM in NS 0.9% 100 ml BAG 100 ML IV ONE (08:18)
[2020-09-03] MEDS ORDERED: Furosemide 40 mg/4 ml IV VIAL IV SLOW PU ONE (08:44)
[2020-09-03] MEDS ORDERED: Zosyn per Pharmacy NOTE FOLLOW UP SCH (09:00)
[2020-09-03] MEDS ORDERED: Furosemide 40 mg/4 ml IV VIAL ONE ×2 (09:01→09:09)
[2020-09-03] MEDS: Pantoprazole VIAL 40 MG VIAL IV SCH (09:06)
[2020-09-03] MEDS: Aspirin EC 81 mg TAB.EC (enteric coated) PO SCH (09:15)
[2020-09-03] MEDS: Nystatin TOP POWDER 15 GM BTL TOPICAL SCH ×3 (09:23→20:22)
[2020-09-03] MEDS: ZOSYN 3.375 GM Q8H per EXTENDED INFUSION IV SCH ×2 (13:56→20:22)
[2020-09-03 21:35] LABS: Hematocrit 23 % (42-52); Hemoglobin 7.3 g/dL (14.0-18.0)
[2020-09-04 03:55] LABS: ABS Eosinophils 0.2 10^3/ul (0-0.6); ABS Lymphocytes 1.5 10^3/ul (1.0-4.8); ABS Monocytes 0.4 10^3/ul (0-0.8); Eosinophil % 2.5 %; Hematocrit 24 % (42-52); Hemoglobin 7.4 g/dL (14.0-18.0); Lymphocyte % 20.9 %; Mean Corpuscular HGB Conc 31 g/dL (31-36); Mean Corpuscular Hemoglobin 25 pg (27-31); Mean Corpuscular Volume 80 fL (80-94); Mean Platelet Volume 8.4 fL (7.4-10.4); Platelet Count 211 10^3/uL (150-450); Red Blood Count 2.94 10^6 /uL (4.18-5.48); Red Cell Distribution Width 16 % (10-15); White Blood Count 7.1 10^3/uL (3.5-10.8)
[2020-09-04 04:08] LABS: BUN/Creatinine Ratio 20.2 (8-20); Calcium 7.9 mg/dL (8.6-10.3); EGFR African American 38.7 (>60); Magnesium 1.9 mg/dL (1.9-2.7); Potassium 4.2 mmol/L (3.5-5.0)
[2020-09-04] MEDS ORDERED: Magnesium Sulfate IV 1GM/100ML 1 GM/100 ML BAG IV ONE (04:20)
[2020-09-04] MEDS: ZOSYN 3.375 GM Q8H per EXTENDED INFUSION IV SCH ×3 (05:20→20:25)
[2020-09-04] MEDS: Heparin 5000 UNITS/ML 1 mL VIAL SUBCUT SCH ×3 (05:20→22:43)
[2020-09-04] MEDS: Aspirin EC 81 mg TAB.EC (enteric coated) PO SCH (09:24)
[2020-09-04] MEDS: Pantoprazole VIAL 40 MG VIAL IV SCH (09:24)
[2020-09-04] MEDS: Nystatin TOP POWDER 15 GM BTL TOPICAL SCH ×3 (10:50→20:25)
[2020-09-05 04:34] LABS: Hematocrit 22 % (42-52); Mean Corpuscular HGB Conc 31 g/dL (31-36); Mean Corpuscular Hemoglobin 25 pg (27-31); Mean Corpuscular Volume 80 fL (80-94); Mean Platelet Volume 7.8 fL (7.4-10.4); Platelet Count 195 10^3/uL (150-450); Red Blood Count 2.81 10^6 /uL (4.18-5.48); Red Cell Distribution Width 17 % (10-15)
[2020-09-05 04:49] LABS: BUN/Creatinine Ratio 20.5 (8-20); Calcium 7.7 mg/dL (8.6-10.3); EGFR African American 33.8 (>60); EGFR Non-African American 27.9 (>60); Potassium 4.4 mmol/L (3.5-5.0)
[2020-09-05] MEDS ORDERED: Lactated Ringers 500 ml BAG 500 ML IV ONE (05:07)
[2020-09-05] MEDS: ZOSYN 3.375 GM Q8H per EXTENDED INFUSION IV SCH ×4 (06:34→21:24)
[2020-09-05] MEDS: Heparin 5000 UNITS/ML 1 mL VIAL SUBCUT SCH ×3 (06:34→21:25)
[2020-09-05] MEDS: Pantoprazole VIAL 40 MG VIAL IV SCH (09:25)
[2020-09-05] MEDS: Aspirin EC 81 mg TAB.EC (enteric coated) PO SCH (09:25)
[2020-09-05] MEDS: Nystatin TOP POWDER 15 GM BTL TOPICAL SCH ×3 (09:25→21:32)
[2020-09-05] MEDS ORDERED: Calcium Gluconate 2 GM in NS 0.9% 100 ml BAG 100 ML IV ONE (10:00)
[2020-09-05 10:28] LABS: Magnesium 2.1 mg/dL (1.9-2.7); Phosphorus 4.9 mg/dL (2.5-5.0)
[2020-09-06] MEDS: ZOSYN 3.375 GM Q8H per EXTENDED INFUSION IV SCH ×3 (05:28→21:45)
[2020-09-06] MEDS: Heparin 5000 UNITS/ML 1 mL VIAL SUBCUT SCH ×3 (05:28→20:22)
[2020-09-06] MEDS: Aspirin EC 81 mg TAB.EC (enteric coated) PO SCH (08:40)
[2020-09-06] MEDS: Pantoprazole VIAL 40 MG VIAL IV SCH (08:40)
[2020-09-06] MEDS ORDERED: Influenza VAC *QUAD* 2020-21* 0.5 ML SYRINGE IM ONE (09:00)
[2020-09-06] MEDS: Nystatin TOP POWDER 15 GM BTL TOPICAL SCH ×3 (09:03→20:23)
[2020-09-06 09:18] LABS: ABS Eosinophils 0.3 10^3/ul (0-0.6); ABS Lymphocytes 1.5 10^3/ul (1.0-4.8); ABS Monocytes 0.5 10^3/ul (0-0.8); ABS Neutrophils 6.6 10^3/ul (1.5-7.7); Eosinophil % 3.3 %; Hematocrit 22 % (42-52); Lymphocyte % 16.8 %; Mean Corpuscular HGB Conc 32 g/dL (31-36); Mean Corpuscular Hemoglobin 25 pg (27-31); Mean Corpuscular Volume 80 fL (80-94); Mean Platelet Volume 8.1 fL (7.4-10.4); Nucleated Red Blood Cells % 0.1; Platelet Count 218 10^3/uL (150-450); Red Blood Count 2.74 10^6 /uL (4.18-5.48); Red Cell Distribution Width 16 % (10-15); White Blood Count 8.9 10^3/uL (3.5-10.8)
[2020-09-06] MEDS: Insulin GLARGINE 100 un/ml 10 ml VIAL SUBCUT SCH ×2 (09:29→20:23)
[2020-09-06 09:36] LABS: BUN/Creatinine Ratio 20.6 (8-20); EGFR African American 31.8 (>60); EGFR Non-African American 26.3 (>60); Magnesium 2.2 mg/dL (1.9-2.7); Potassium 4.6 mmol/L (3.5-5.0)
[2020-09-06] MEDS ORDERED: fentaNYL 100 mcg/2 ml 50 MCG/ML VIAL IV SLOW PU PRN (15:41)
[2020-09-06] MEDS ORDERED: Albuterol/Ipratropium NEB.SOL (2.5/0.5 MG) 3 ML NEB.SOLN INH SCH (18:00)
[2020-09-07] MEDS: Albuterol/Ipratropium NEB.SOL (2.5/0.5 MG) 3 ML NEB.SOLN INH SCH ×3 (00:15→15:53)
[2020-09-07] MEDS: Heparin 5000 UNITS/ML 1 mL VIAL SUBCUT SCH ×3 (05:25→21:22)
[2020-09-07] MEDS: ZOSYN 3.375 GM Q8H per EXTENDED INFUSION IV SCH ×3 (05:26→22:00)
[2020-09-07 05:47] LABS: ABS Lymphocytes 0.5 10^3/ul (1.0-4.8); ABS Monocytes 0.1 10^3/ul (0-0.8); ABS Neutrophils 5.8 10^3/ul (1.5-7.7); Hematocrit 24 % (42-52); Hemoglobin 7.4 g/dL (14.0-18.0); Lymphocyte % 7.7 %; Mean Corpuscular HGB Conc 31 g/dL (31-36); Mean Corpuscular Hemoglobin 25 pg (27-31); Mean Corpuscular Volume 81 fL (80-94); Mean Platelet Volume 8.7 fL (7.4-10.4); Platelet Count 219 10^3/uL (150-450); Red Blood Count 2.92 10^6 /uL (4.18-5.48); Red Cell Distribution Width 16 % (10-15); White Blood Count 6.3 10^3/uL (3.5-10.8)
[2020-09-07 06:10] LABS: BUN/Creatinine Ratio 21.2 (8-20); EGFR African American 28.3 (>60); EGFR Non-African American 23.4 (>60)
[2020-09-07 06:11] LABS: Potassium 5.5 mmol/L (3.5-5.0)
[2020-09-07] MEDS ORDERED: Sodium Polystyrene ORAL.SUSP 15 GM/60 ML BTL PO ONE (08:01)
[2020-09-07] MEDS: Aspirin EC 81 mg TAB.EC (enteric coated) PO SCH (09:05)
[2020-09-07] MEDS: Pantoprazole VIAL 40 MG VIAL IV SCH (09:12)
[2020-09-07] MEDS: Insulin GLARGINE 100 un/ml 10 ml VIAL SUBCUT SCH ×2 (09:23→21:21)
[2020-09-07] MEDS: Nystatin TOP POWDER 15 GM BTL TOPICAL SCH ×3 (09:23→22:00)
[2020-09-07 15:09] LABS: BUN/Creatinine Ratio 22.7 (8-20); Calcium 8.3 mg/dL (8.6-10.3); EGFR African American 29.4 (>60); EGFR Non-African American 24.3 (>60)
[2020-09-07 15:11] LABS: Potassium 5.2 mmol/L (3.5-5.0)
[2020-09-08] MEDS: Albuterol/Ipratropium NEB.SOL (2.5/0.5 MG) 3 ML NEB.SOLN INH SCH ×4 (00:02→23:50)
[2020-09-08] MEDS: ZOSYN 3.375 GM Q8H per EXTENDED INFUSION IV SCH ×3 (04:31→21:35)
[2020-09-08 04:45] LABS: ABS Lymphocytes 1.1 10^3/ul (1.0-4.8); ABS Monocytes 0.4 10^3/ul (0-0.8); ABS Neutrophils 4.4 10^3/ul (1.5-7.7); Eosinophil % 0.1 %; Hematocrit 23 % (42-52); Hemoglobin 7.1 g/dL (14.0-18.0); Lymphocyte % 18.3 %; Mean Corpuscular HGB Conc 32 g/dL (31-36); Mean Corpuscular Hemoglobin 25 pg (27-31); Mean Corpuscular Volume 80 fL (80-94); Mean Platelet Volume 8.3 fL (7.4-10.4); Platelet Count 223 10^3/uL (150-450); Red Blood Count 2.81 10^6 /uL (4.18-5.48); Red Cell Distribution Width 17 % (10-15); White Blood Count 5.9 10^3/uL (3.5-10.8)
[2020-09-08 04:49] LABS: INR 1.16 (0.82-1.09)
[2020-09-08 04:59] LABS: BUN/Creatinine Ratio 24.7 (8-20); Calcium 8.3 mg/dL (8.6-10.3); EGFR African American 31.2 (>60); EGFR Non-African American 25.8 (>60); Potassium 4.4 mmol/L (3.5-5.0)
[2020-09-08] MEDS: Lactated Ringers 1000 ml BAG 1,000 ML IV SCH (08:09)
[2020-09-08] MEDS: Nystatin TOP POWDER 15 GM BTL TOPICAL SCH ×3 (09:00→21:38)
[2020-09-08] MEDS: Aspirin EC 81 mg TAB.EC (enteric coated) PO SCH (09:58)
[2020-09-08] MEDS: Insulin GLARGINE 100 un/ml 10 ml VIAL SUBCUT SCH (10:00)
[2020-09-08] MEDS: Pantoprazole VIAL 40 MG VIAL IV SCH (10:02)
[2020-09-08] MEDS ORDERED: Dexamethasone IV 4 MG/ML VIAL 1 ml VIAL ONE (11:36)
[2020-09-08] MEDS ORDERED: Ondansetron 4 mg VIAL 2 MG/ML 2 ml VIAL ONE (11:36)
[2020-09-08] MEDS ORDERED: Lidocaine 2% PF 5 ML VIAL ONE (11:37)
[2020-09-08] MEDS ORDERED: Midazolam 2 mg/2 ml VIAL 1 mg/ml 2 ml VIAL (2 mg) ONE (11:38)
[2020-09-08] MEDS ORDERED: fentaNYL 100 mcg/2 ml 50 MCG/ML VIAL ONE ×4 (11:38→14:54)
[2020-09-08] MEDS ORDERED: Propofol 10 MG/ML 20 ML BTL ONE (11:40)
[2020-09-08] MEDS ORDERED: Rocuronium 50 mg VIAL 10 mg/ml 5 ml VIAL (50 mg) ONE (11:40)
[2020-09-08] MEDS: Heparin 5000 UNITS/ML 1 mL VIAL SUBCUT SCH ×2 (14:24→23:20)
[2020-09-08] MEDS ORDERED: fentaNYL 100 mcg/2 ml 50 MCG/ML VIAL IV SLOW PU ONE (15:30)
[2020-09-08] MEDS ORDERED: Magnesium Sulfate 2 gm BAG 2 GM/50 ML BAG IVPB ONE (16:44)
[2020-09-08] MEDS ORDERED: Metoprolol Tartrate 5 mg VIAL 5 ml VIAL (1 mg/ml) IV PRN (17:23)
[2020-09-09 05:32] LABS: ABS Lymphocytes 1.1 10^3/ul (1.0-4.8); ABS Monocytes 0.4 10^3/ul (0-0.8); Eosinophil % 0.1 %; Hematocrit 24 % (42-52); Hemoglobin 7.4 g/dL (14.0-18.0); Lymphocyte % 12.3 %; Mean Corpuscular HGB Conc 32 g/dL (31-36); Mean Corpuscular Hemoglobin 25 pg (27-31); Mean Corpuscular Volume 80 fL (80-94); Mean Platelet Volume 8.4 fL (7.4-10.4); Platelet Count 264 10^3/uL (150-450); Red Blood Count 2.94 10^6 /uL (4.18-5.48); Red Cell Distribution Width 17 % (10-15); White Blood Count 8.5 10^3/uL (3.5-10.8)
[2020-09-09 05:56] LABS: BUN/Creatinine Ratio 26.3 (8-20); Calcium 8.1 mg/dL (8.6-10.3); EGFR African American 38.5 (>60); EGFR Non-African American 31.8 (>60); Potassium 4.4 mmol/L (3.5-5.0)
[2020-09-09] MEDS: Heparin 5000 UNITS/ML 1 mL VIAL SUBCUT SCH ×3 (05:57→21:06)
[2020-09-09] MEDS: ZOSYN 3.375 GM Q8H per EXTENDED INFUSION IV SCH ×3 (05:57→20:54)
[2020-09-09] MEDS: Albuterol/Ipratropium NEB.SOL (2.5/0.5 MG) 3 ML NEB.SOLN INH SCH ×3 (07:06→23:26)
[2020-09-09] MEDS: Lactated Ringers 1000 ml BAG 1,000 ML IV SCH (08:45)
[2020-09-09] MEDS: Nystatin TOP POWDER 15 GM BTL TOPICAL SCH ×3 (09:04→20:54)
[2020-09-09] MEDS: Aspirin EC 81 mg TAB.EC (enteric coated) PO SCH (09:12)
[2020-09-09] MEDS: Pantoprazole VIAL 40 MG VIAL IV SCH (09:13)
[2020-09-09] MEDS: ceFAZolin 1 GM ADVAN 1 GM in NS 0.9% 50 ML 50 ML IVPB SCH ×2 (10:27→20:54)
[2020-09-09] MEDS ORDERED: hydrALAZINE 20 mg/ml 1 ML Vial IV IV SLOW PU PRN (12:53)
[2020-09-10] MEDS: ZOSYN 3.375 GM Q8H per EXTENDED INFUSION IV SCH (05:05)
[2020-09-10 05:21] LABS: ABS Basophils 0.1 10^3/ul (0-0.2); ABS Eosinophils 0.2 10^3/ul (0-0.6); ABS Lymphocytes 1.6 10^3/ul (1.0-4.8); ABS Monocytes 0.5 10^3/ul (0-0.8); ABS Neutrophils 4.8 10^3/ul (1.5-7.7); Eosinophil % 2.4 %; Hematocrit 23 % (42-52); Hemoglobin 7.2 g/dL (14.0-18.0); Lymphocyte % 22.8 %; Mean Corpuscular HGB Conc 32 g/dL (31-36); Mean Corpuscular Hemoglobin 25 pg (27-31); Mean Corpuscular Volume 81 fL (80-94); Platelet Count 243 10^3/uL (150-450); Red Blood Count 2.83 10^6 /uL (4.18-5.48); Red Cell Distribution Width 17 % (10-15); White Blood Count 7.1 10^3/uL (3.5-10.8)
[2020-09-10 05:37] LABS: BUN/Creatinine Ratio 25.6 (8-20); Calcium 8.1 mg/dL (8.6-10.3); EGFR African American 48.2 (>60); EGFR Non-African American 39.9 (>60); Potassium 3.6 mmol/L (3.5-5.0)
[2020-09-10] MEDS: Heparin 5000 UNITS/ML 1 mL VIAL SUBCUT SCH ×3 (05:47→21:02)
[2020-09-10] MEDS: Albuterol/Ipratropium NEB.SOL (2.5/0.5 MG) 3 ML NEB.SOLN INH SCH ×3 (07:29→23:24)
[2020-09-10] MEDS ORDERED: KCL 20 MEQ/100 ML IVPREMIX 20 MEQ/100 ML BAG IV ONE (08:21)
[2020-09-10] MEDS: ceFAZolin 1 GM ADVAN 1 GM in NS 0.9% 50 ML 50 ML IVPB SCH (08:28)
[2020-09-10] MEDS: Aspirin EC 81 mg TAB.EC (enteric coated) PO SCH (11:26)
[2020-09-10] MEDS: Pantoprazole VIAL 40 MG VIAL IV SCH (11:27)
[2020-09-10] MEDS: Nystatin TOP POWDER 15 GM BTL TOPICAL SCH ×3 (11:27→21:02)
[2020-09-10] MEDS: ceFAZolin 2 GM PREMIX 2 GM/50 ML BAG IVPB SCH ×2 (14:16→21:33)
[2020-09-11 05:39] LABS: ABS Eosinophils 0.2 10^3/ul (0-0.6); ABS Lymphocytes 1.4 10^3/ul (1.0-4.8); ABS Monocytes 0.5 10^3/ul (0-0.8); ABS Neutrophils 4.6 10^3/ul (1.5-7.7); Eosinophil % 3.7 %; Hematocrit 24 % (42-52); Hemoglobin 7.4 g/dL (14.0-18.0); Lymphocyte % 20.4 %; Mean Corpuscular HGB Conc 31 g/dL (31-36); Mean Corpuscular Hemoglobin 25 pg (27-31); Mean Corpuscular Volume 80 fL (80-94); Mean Platelet Volume 8.2 fL (7.4-10.4); Platelet Count 232 10^3/uL (150-450); Red Blood Count 2.94 10^6 /uL (4.18-5.48); Red Cell Distribution Width 18 % (10-15); White Blood Count 6.7 10^3/uL (3.5-10.8)
[2020-09-11 05:49] LABS: BUN/Creatinine Ratio 23.4 (8-20); Calcium 8.2 mg/dL (8.6-10.3); EGFR African American 60.7 (>60); EGFR Non-African American 50.1 (>60); Potassium 3.6 mmol/L (3.5-5.0)
[2020-09-11] MEDS: ceFAZolin 2 GM PREMIX 2 GM/50 ML BAG IVPB SCH ×3 (06:12→22:00)
[2020-09-11] MEDS: Heparin 5000 UNITS/ML 1 mL VIAL SUBCUT SCH ×3 (06:20→22:00)
[2020-09-11] MEDS: Albuterol/Ipratropium NEB.SOL (2.5/0.5 MG) 3 ML NEB.SOLN INH SCH ×3 (07:15→23:57)
[2020-09-11] MEDS: Pantoprazole VIAL 40 MG VIAL IV SCH (08:58)
[2020-09-11] MEDS: Aspirin EC 81 mg TAB.EC (enteric coated) PO SCH (08:58)
[2020-09-11] MEDS: Nystatin TOP POWDER 15 GM BTL TOPICAL SCH ×3 (09:00→20:29)
[2020-09-11] MEDS: Ondansetron 4 mg VIAL 2 MG/ML 2 ml VIAL IV PRN (20:39)
[2020-09-11] MEDS ORDERED: Insulin GLARGINE 100 un/ml 10 ml VIAL SUBCUT SCH (21:00)
[2020-09-12 05:14] LABS: ABS Monocytes 0.5 10^3/ul (0-0.8); ABS Neutrophils 6.4 10^3/ul (1.5-7.7); Eosinophil % 0.2 %; Hematocrit 25 % (42-52); Lymphocyte % 12.9 %; Mean Corpuscular HGB Conc 32 g/dL (31-36); Mean Corpuscular Hemoglobin 26 pg (27-31); Mean Corpuscular Volume 81 fL (80-94); Mean Platelet Volume 8.7 fL (7.4-10.4); Platelet Count 260 10^3/uL (150-450); Red Blood Count 3.11 10^6 /uL (4.18-5.48); Red Cell Distribution Width 18 % (10-15)
[2020-09-12 05:29] LABS: BUN/Creatinine Ratio 20.6 (8-20); Calcium 8.4 mg/dL (8.6-10.3); EGFR African American 52.4 (>60); EGFR Non-African American 43.3 (>60); Potassium 3.1 mmol/L (3.5-5.0)
[2020-09-12] MEDS: ceFAZolin 2 GM PREMIX 2 GM/50 ML BAG IVPB SCH ×3 (05:57→22:07)
[2020-09-12] MEDS: Heparin 5000 UNITS/ML 1 mL VIAL SUBCUT SCH ×3 (05:57→20:49)
[2020-09-12] MEDS: Albuterol/Ipratropium NEB.SOL (2.5/0.5 MG) 3 ML NEB.SOLN INH SCH ×3 (07:28→23:58)
[2020-09-12] MEDS: Pantoprazole VIAL 40 MG VIAL IV SCH (08:29)
[2020-09-12] MEDS: Aspirin EC 81 mg TAB.EC (enteric coated) PO SCH (08:29)
[2020-09-12] MEDS: Nystatin TOP POWDER 15 GM BTL TOPICAL SCH ×3 (08:30→20:58)
[2020-09-12] MEDS: KCL 20 MEQ/100 ML IVPREMIX 20 MEQ/100 ML BAG IV SCH ×2 (14:44→14:57)
[2020-09-12] MEDS ORDERED: Potassium Chloride LIQUID 20 MEQ/15 ML LIQUID PO ONE (14:55)
[2020-09-12] MEDS: Insulin GLARGINE 100 un/ml 10 ml VIAL SUBCUT SCH (20:48)
[2020-09-13 05:14] LABS: ABS Eosinophils 0.2 10^3/ul (0-0.6); ABS Lymphocytes 1.3 10^3/ul (1.0-4.8); ABS Monocytes 0.5 10^3/ul (0-0.8); ABS Neutrophils 5.9 10^3/ul (1.5-7.7); Eosinophil % 2.3 %; Hematocrit 23 % (42-52); Hemoglobin 7.3 g/dL (14.0-18.0); Lymphocyte % 16.5 %; Mean Corpuscular HGB Conc 32 g/dL (31-36); Mean Corpuscular Hemoglobin 26 pg (27-31); Mean Corpuscular Volume 80 fL (80-94); Mean Platelet Volume 8.6 fL (7.4-10.4); Platelet Count 225 10^3/uL (150-450); Red Blood Count 2.87 10^6 /uL (4.18-5.48); Red Cell Distribution Width 18 % (10-15); White Blood Count 7.9 10^3/uL (3.5-10.8)
[2020-09-13 05:25] LABS: ALT < 3 U/L (7-52); AST 5 U/L (13-39); Albumin 2.6 g/dL (3.2-5.2); Albumin/Globulin Ratio 0.7 (1-3); Alkaline Phosphatase 39 U/L (34-104); Anion Gap 4 mmol/L (2-11); BUN/Creatinine Ratio 20.4 (8-20); Blood Urea Nitrogen 29 mg/dL (6-24); CO2 Carbon Dioxide 31 mmol/L (22-32); Chloride 107 mmol/L (101-111); EGFR African American 60.2 (>60); EGFR Non-African American 49.7 (>60); Globulin 3.6 g/dL (2-4); Glucose 187 mg/dL (70-100); Potassium 2.8 mmol/L (3.5-5.0); Sodium 142 mmol/L (135-145); Total Protein 6.2 g/dL (6.4-8.9)
[2020-09-13 05:29] LABS: INR 1.15 (0.82-1.09)
[2020-09-13] MEDS ORDERED: Potassium Chloride LIQUID 20 MEQ/15 ML LIQUID PO ONE (05:34)
[2020-09-13] MEDS: Heparin 5000 UNITS/ML 1 mL VIAL SUBCUT SCH ×3 (06:24→21:20)
[2020-09-13] MEDS: ceFAZolin 2 GM PREMIX 2 GM/50 ML BAG IVPB SCH ×3 (06:36→21:22)
[2020-09-13] MEDS: Potassium Chloride LIQUID 20 MEQ/15 ML LIQUID PO SCH ×2 (10:01→21:20)
[2020-09-13] MEDS: Aspirin EC 81 mg TAB.EC (enteric coated) PO SCH (10:20)
[2020-09-13] MEDS: Nystatin TOP POWDER 15 GM BTL TOPICAL SCH ×3 (10:21→21:22)
[2020-09-13] MEDS: Pantoprazole VIAL 40 MG VIAL IV SCH (10:23)
[2020-09-13] MEDS: KCL 20 MEQ/100 ML IVPREMIX 20 MEQ/100 ML BAG IV SCH ×2 (14:24→21:21)
[2020-09-13] MEDS ORDERED: Magnesium Sulfate IV 1GM/100ML 1 GM/100 ML BAG IV ONE (15:33)
[2020-09-13] MEDS: Cholestyramine Resin 4 GM POWDER PO SCH (21:20)
[2020-09-13] MEDS: Insulin GLARGINE 100 un/ml 10 ml VIAL SUBCUT SCH (21:21)
[2020-09-14] MEDS: KCL 20 MEQ/100 ML IVPREMIX 20 MEQ/100 ML BAG IV SCH (02:53)
[2020-09-14 05:17] LABS: BUN/Creatinine Ratio 16.4 (8-20); EGFR African American 61.2 (>60); EGFR Non-African American 50.5 (>60); Magnesium 1.9 mg/dL (1.9-2.7); Potassium 3.4 mmol/L (3.5-5.0)
[2020-09-14] MEDS: ceFAZolin 2 GM PREMIX 2 GM/50 ML BAG IVPB SCH ×3 (08:30→21:54)
[2020-09-14] MEDS: Heparin 5000 UNITS/ML 1 mL VIAL SUBCUT SCH ×3 (08:30→22:15)
[2020-09-14] MEDS ORDERED: Potassium Chloride LIQUID 20 MEQ/15 ML LIQUID PO ONE (08:31)
[2020-09-14] MEDS: Pantoprazole VIAL 40 MG VIAL IV SCH (09:14)
[2020-09-14] MEDS: Nystatin TOP POWDER 15 GM BTL TOPICAL SCH ×3 (09:20→20:48)
[2020-09-14] MEDS: Cholestyramine Resin 4 GM POWDER PO SCH ×2 (09:20→20:47)
[2020-09-14] MEDS: Aspirin EC 81 mg TAB.EC (enteric coated) PO SCH (09:20)
[2020-09-14] MEDS: Ondansetron 4 mg VIAL 2 MG/ML 2 ml VIAL IV PRN (12:11)
[2020-09-14] MEDS ORDERED: Midazolam 10 mg/10 ml VIAL 1 mg/ml 10 ml VIAL (10 mg) ONE (13:56)
[2020-09-14] MEDS ORDERED: fentaNYL 100 mcg/2 ml 50 MCG/ML VIAL ONE (13:56)
[2020-09-14] MEDS ORDERED: Metoprolol Tartrate 5 mg VIAL 5 ml VIAL (1 mg/ml) IV PRN (17:57)
[2020-09-14] MEDS: Insulin GLARGINE 100 un/ml 10 ml VIAL SUBCUT SCH (20:47)
[2020-09-15 04:58] LABS: BUN/Creatinine Ratio 15.8 (8-20); Calcium 8.3 mg/dL (8.6-10.3); EGFR African American 53.2 (>60); Potassium 3.3 mmol/L (3.5-5.0)
[2020-09-15] MEDS: Heparin 5000 UNITS/ML 1 mL VIAL SUBCUT SCH ×3 (05:04→22:49)
[2020-09-15] MEDS: ceFAZolin 2 GM PREMIX 2 GM/50 ML BAG IVPB SCH ×3 (05:04→22:49)
[2020-09-15] MEDS: Cholestyramine Resin 4 GM POWDER PO SCH ×2 (09:38→20:29)
[2020-09-15] MEDS: Pantoprazole VIAL 40 MG VIAL IV SCH (09:38)
[2020-09-15] MEDS: Aspirin EC 81 mg TAB.EC (enteric coated) PO SCH (09:38)
[2020-09-15] MEDS: Nystatin TOP POWDER 15 GM BTL TOPICAL SCH ×2 (09:51→14:07)
[2020-09-15 10:07] LABS: C Reactive Protein 68.41 mg/L (<8.01)
[2020-09-15] MEDS ORDERED: Saline FLUSH-CENTRAL 10 ML SYRINGE CENT\\PICC SCH (17:00)
[2020-09-15] MEDS: Insulin GLARGINE 100 un/ml 10 ml VIAL SUBCUT SCH (20:29)
[2020-09-16 05:18] LABS: ABS Eosinophils 0.1 10^3/ul (0-0.6); ABS Lymphocytes 1.3 10^3/ul (1.0-4.8); ABS Monocytes 0.5 10^3/ul (0-0.8); ABS Neutrophils 5.5 10^3/ul (1.5-7.7); Eosinophil % 1.9 %; Hematocrit 23 % (42-52); Hemoglobin 7.3 g/dL (14.0-18.0); Lymphocyte % 17.5 %; Mean Corpuscular HGB Conc 32 g/dL (31-36); Mean Corpuscular Hemoglobin 26 pg (27-31); Mean Corpuscular Volume 81 fL (80-94); Mean Platelet Volume 8.4 fL (7.4-10.4); Platelet Count 208 10^3/uL (150-450); Red Blood Count 2.82 10^6 /uL (4.18-5.48); Red Cell Distribution Width 17 % (10-15); White Blood Count 7.5 10^3/uL (3.5-10.8)
[2020-09-16 05:35] LABS: BUN/Creatinine Ratio 14.4 (8-20); EGFR African American 45.8 (>60); EGFR Non-African American 37.8 (>60); Potassium 3.4 mmol/L (3.5-5.0)
[2020-09-16] MEDS: ceFAZolin 2 GM PREMIX 2 GM/50 ML BAG IVPB SCH ×3 (06:10→21:16)
[2020-09-16] MEDS: Heparin 5000 UNITS/ML 1 mL VIAL SUBCUT SCH ×3 (06:10→20:53)
[2020-09-16] MEDS: Cholestyramine Resin 4 GM POWDER PO SCH (08:55)
[2020-09-16] MEDS: Pantoprazole VIAL 40 MG VIAL IV SCH (08:55)
[2020-09-16] MEDS: Insulin GLARGINE 100 un/ml 10 ml VIAL SUBCUT SCH (20:52)
[2020-09-17 05:57] LABS: Hematocrit 28 % (42-52); Hemoglobin 8.6 g/dL (14.0-18.0); Mean Corpuscular HGB Conc 31 g/dL (31-36); Mean Corpuscular Hemoglobin 25 pg (27-31); Mean Corpuscular Volume 82 fL (80-94); Mean Platelet Volume 8.5 fL (7.4-10.4); Platelet Count 297 10^3/uL (150-450); Red Blood Count 3.39 10^6 /uL (4.18-5.48); Red Cell Distribution Width 17 % (10-15); White Blood Count 14.6 10^3/uL (3.5-10.8)
[2020-09-17 06:10] LABS: BUN/Creatinine Ratio 15.3 (8-20); Calcium 8.6 mg/dL (8.6-10.3); EGFR African American 43.3 (>60); EGFR Non-African American 35.8 (>60); Potassium 3.9 mmol/L (3.5-5.0)
[2020-09-17] MEDS: ceFAZolin 2 GM PREMIX 2 GM/50 ML BAG IVPB SCH ×3 (06:16→22:18)
[2020-09-17] MEDS: Heparin 5000 UNITS/ML 1 mL VIAL SUBCUT SCH ×3 (06:17→22:18)
[2020-09-17] MEDS ORDERED: Lactated Ringers 500 ml BAG 500 ML IV ONE (14:34)
[2020-09-17] MEDS: Lactated Ringers 1000 ml BAG 1,000 ML IV SCH ×2 (15:54→19:33)
[2020-09-17] MEDS: Insulin GLARGINE 100 un/ml 10 ml VIAL SUBCUT SCH (22:18)
[2020-09-18 05:09] LABS: Hematocrit 22 % (42-52); Mean Corpuscular HGB Conc 32 g/dL (31-36); Mean Corpuscular Hemoglobin 25 pg (27-31); Mean Corpuscular Volume 80 fL (80-94); Mean Platelet Volume 8.7 fL (7.4-10.4); Platelet Count 195 10^3/uL (150-450); Red Cell Distribution Width 17 % (10-15); White Blood Count 6.3 10^3/uL (3.5-10.8)
[2020-09-18 05:30] LABS: ALT < 3 U/L (7-52); AST 6 U/L (13-39); Albumin 2.5 g/dL (3.2-5.2); Albumin/Globulin Ratio 0.8 (1-3); Alkaline Phosphatase 42 U/L (34-104); Anion Gap 5 mmol/L (2-11); BUN/Creatinine Ratio 19.9 (8-20); Blood Urea Nitrogen 37 mg/dL (6-24); CO2 Carbon Dioxide 28 mmol/L (22-32); Calcium 8.3 mg/dL (8.6-10.3); Chloride 111 mmol/L (101-111); EGFR African American 44.1 (>60); EGFR Non-African American 36.4 (>60); Globulin 3.3 g/dL (2-4); Glucose 132 mg/dL (70-100); Magnesium 1.9 mg/dL (1.9-2.7); Potassium 3.4 mmol/L (3.5-5.0); Sodium 144 mmol/L (135-145); Total Protein 5.8 g/dL (6.4-8.9)
[2020-09-18] MEDS: Heparin 5000 UNITS/ML 1 mL VIAL SUBCUT SCH ×3 (05:52→20:35)
[2020-09-18] MEDS: ceFAZolin 2 GM PREMIX 2 GM/50 ML BAG IVPB SCH ×3 (05:53→20:35)
[2020-09-18] MEDS: Lactated Ringers 1000 ml BAG 1,000 ML IV SCH ×2 (12:11→20:00)
[2020-09-18] MEDS: Insulin GLARGINE 100 un/ml 10 ml VIAL SUBCUT SCH (20:35)
[2020-09-19] MEDS: Heparin 5000 UNITS/ML 1 mL VIAL SUBCUT SCH ×3 (05:22→21:11)
[2020-09-19] MEDS: ceFAZolin 2 GM PREMIX 2 GM/50 ML BAG IVPB SCH ×3 (05:22→22:08)
[2020-09-19 05:39] LABS: Hematocrit 22 % (42-52); Hemoglobin 7.2 g/dL (14.0-18.0); Mean Corpuscular HGB Conc 32 g/dL (31-36); Mean Corpuscular Hemoglobin 25 pg (27-31); Mean Corpuscular Volume 79 fL (80-94); Mean Platelet Volume 8.6 fL (7.4-10.4); Platelet Count 190 10^3/uL (150-450); Red Blood Count 2.83 10^6 /uL (4.18-5.48); Red Cell Distribution Width 18 % (10-15)
[2020-09-19] MEDS: Potassium Chloride LIQUID 20 MEQ/15 ML LIQUID PO SCH (17:41)
[2020-09-19] MEDS ORDERED: Furosemide 40 mg/4 ml IV VIAL IV SLOW PU SCH (18:00)
[2020-09-19] MEDS: Insulin GLARGINE 100 un/ml 10 ml VIAL SUBCUT SCH (21:10)
[2020-09-20 05:16] LABS: BUN/Creatinine Ratio 20.2 (8-20); Calcium 8.2 mg/dL (8.6-10.3); EGFR African American 46.4 (>60); EGFR Non-African American 38.3 (>60); Potassium 3.6 mmol/L (3.5-5.0)
[2020-09-20] MEDS: Heparin 5000 UNITS/ML 1 mL VIAL SUBCUT SCH ×3 (06:03→21:39)
[2020-09-20] MEDS: ceFAZolin 2 GM PREMIX 2 GM/50 ML BAG IVPB SCH ×3 (06:04→21:48)
[2020-09-20] MEDS ORDERED: Furosemide 40 mg/4 ml IV VIAL IV ONE (07:42)
[2020-09-20] MEDS: Potassium Chloride LIQUID 20 MEQ/15 ML LIQUID PO SCH (08:25)
[2020-09-20] MEDS: Insulin GLARGINE 100 un/ml 10 ml VIAL SUBCUT SCH (21:37)
[2020-09-21] MEDS: Heparin 5000 UNITS/ML 1 mL VIAL SUBCUT SCH ×3 (05:43→21:43)
[2020-09-21] MEDS: ceFAZolin 2 GM PREMIX 2 GM/50 ML BAG IVPB SCH ×3 (05:49→21:56)
[2020-09-21 05:59] LABS: ABS Eosinophils 0.2 10^3/ul (0-0.6); ABS Lymphocytes 0.9 10^3/ul (1.0-4.8); ABS Monocytes 0.4 10^3/ul (0-0.8); ABS Neutrophils 3.5 10^3/ul (1.5-7.7); Eosinophil % 3.5 %; Hematocrit 22 % (42-52); Hemoglobin 6.9 g/dL (14.0-18.0); Lymphocyte % 18.5 %; Mean Corpuscular HGB Conc 32 g/dL (31-36); Mean Corpuscular Hemoglobin 25 pg (27-31); Mean Corpuscular Volume 79 fL (80-94); Mean Platelet Volume 8.3 fL (7.4-10.4); Platelet Count 159 10^3/uL (150-450); Red Blood Count 2.75 10^6 /uL (4.18-5.48); Red Cell Distribution Width 18 % (10-15)
[2020-09-21 06:16] LABS: ALT < 3 U/L (7-52); AST 7 U/L (13-39); Albumin 2.5 g/dL (3.2-5.2); Albumin/Globulin Ratio 0.7 (1-3); Alkaline Phosphatase 50 U/L (34-104); Anion Gap 4 mmol/L (2-11); BUN/Creatinine Ratio 20.9 (8-20); Blood Urea Nitrogen 37 mg/dL (6-24); CO2 Carbon Dioxide 33 mmol/L (22-32); Calcium 8.2 mg/dL (8.6-10.3); Chloride 105 mmol/L (101-111); EGFR African American 46.7 (>60); EGFR Non-African American 38.6 (>60); Globulin 3.6 g/dL (2-4); Glucose 166 mg/dL (70-100); Magnesium 1.8 mg/dL (1.9-2.7); Phosphorus 3.1 mg/dL (2.5-5.0); Potassium 3.9 mmol/L (3.5-5.0); Sodium 142 mmol/L (135-145); Total Protein 6.1 g/dL (6.4-8.9)
[2020-09-21] MEDS: Potassium Chloride LIQUID 20 MEQ/15 ML LIQUID PO SCH (08:55)
[2020-09-21] MEDS: Nystatin SUSPENSION 100,000 UNITS/ML UDC PO SCH (20:04)
[2020-09-21] MEDS: Insulin GLARGINE 100 un/ml 10 ml VIAL SUBCUT SCH (20:18)
[2020-09-22 04:32] LABS: ABS Eosinophils 0.2 10^3/ul (0-0.6); ABS Lymphocytes 1.1 10^3/ul (1.0-4.8); ABS Monocytes 0.4 10^3/ul (0-0.8); ABS Neutrophils 3.5 10^3/ul (1.5-7.7); Eosinophil % 3.6 %; Hematocrit 22 % (42-52); Hemoglobin 7.1 g/dL (14.0-18.0); Mean Corpuscular HGB Conc 32 g/dL (31-36); Mean Corpuscular Hemoglobin 26 pg (27-31); Mean Corpuscular Volume 80 fL (80-94); Mean Platelet Volume 8.5 fL (7.4-10.4); Platelet Count 155 10^3/uL (150-450); Red Blood Count 2.77 10^6 /uL (4.18-5.48); Red Cell Distribution Width 17 % (10-15); White Blood Count 5.2 10^3/uL (3.5-10.8)
[2020-09-22 04:54] LABS: ALT < 3 U/L (7-52); AST 9 U/L (13-39); Albumin 2.4 g/dL (3.2-5.2); Albumin/Globulin Ratio 0.7 (1-3); Alkaline Phosphatase 54 U/L (34-104); Anion Gap 4 mmol/L (2-11); BUN/Creatinine Ratio 21.9 (8-20); Blood Urea Nitrogen 40 mg/dL (6-24); CO2 Carbon Dioxide 33 mmol/L (22-32); Chloride 105 mmol/L (101-111); EGFR African American 44.9 (>60); EGFR Non-African American 37.1 (>60); Globulin 3.5 g/dL (2-4); Glucose 159 mg/dL (70-100); Magnesium 1.9 mg/dL (1.9-2.7); Phosphorus 3.3 mg/dL (2.5-5.0); Potassium 4.1 mmol/L (3.5-5.0); Sodium 142 mmol/L (135-145); Total Protein 5.9 g/dL (6.4-8.9)
[2020-09-22] MEDS: ceFAZolin 2 GM PREMIX 2 GM/50 ML BAG IVPB SCH ×3 (05:15→22:09)
[2020-09-22] MEDS: Heparin 5000 UNITS/ML 1 mL VIAL SUBCUT SCH ×3 (05:16→22:08)
[2020-09-22] MEDS: Potassium Chloride LIQUID 20 MEQ/15 ML LIQUID PO SCH (09:02)
[2020-09-22] MEDS: Nystatin SUSPENSION 100,000 UNITS/ML UDC PO SCH ×4 (09:02→22:24)
[2020-09-22 15:10] LABS: C Reactive Protein 95.37 mg/L (<8.01)
[2020-09-22] MEDS: Insulin GLARGINE 100 un/ml 10 ml VIAL SUBCUT SCH (22:09)
[2020-09-23 04:49] LABS: ABS Eosinophils 0.2 10^3/ul (0-0.6); ABS Lymphocytes 1.3 10^3/ul (1.0-4.8); ABS Monocytes 0.4 10^3/ul (0-0.8); ABS Neutrophils 4.2 10^3/ul (1.5-7.7); Eosinophil % 3.4 %; Hematocrit 24 % (42-52); Hemoglobin 7.6 g/dL (14.0-18.0); Lymphocyte % 20.4 %; Mean Corpuscular HGB Conc 32 g/dL (31-36); Mean Corpuscular Hemoglobin 26 pg (27-31); Mean Corpuscular Volume 80 fL (80-94); Mean Platelet Volume 8.5 fL (7.4-10.4); Platelet Count 170 10^3/uL (150-450); Red Blood Count 2.95 10^6 /uL (4.18-5.48); Red Cell Distribution Width 18 % (10-15); White Blood Count 6.1 10^3/uL (3.5-10.8)
[2020-09-23 05:05] LABS: BUN/Creatinine Ratio 22.1 (8-20); Calcium 8.2 mg/dL (8.6-10.3); EGFR African American 45.5 (>60); EGFR Non-African American 37.6 (>60); Potassium 4.7 mmol/L (3.5-5.0)
[2020-09-23] MEDS: Heparin 5000 UNITS/ML 1 mL VIAL SUBCUT SCH ×3 (06:17→21:42)
[2020-09-23] MEDS: Nystatin SUSPENSION 100,000 UNITS/ML UDC PO SCH ×4 (09:05→21:41)
[2020-09-23] MEDS: Potassium Chloride LIQUID 20 MEQ/15 ML LIQUID PO SCH (09:06)
[2020-09-23] MEDS: Insulin GLARGINE 100 un/ml 10 ml VIAL SUBCUT SCH (21:42)
[2020-09-24 04:20] LABS: ABS Eosinophils 0.2 10^3/ul (0-0.6); ABS Monocytes 0.4 10^3/ul (0-0.8); ABS Neutrophils 4.2 10^3/ul (1.5-7.7); Eosinophil % 3.5 %; Hematocrit 23 % (42-52); Hemoglobin 7.4 g/dL (14.0-18.0); Lymphocyte % 17.1 %; Mean Corpuscular HGB Conc 32 g/dL (31-36); Mean Corpuscular Hemoglobin 26 pg (27-31); Mean Corpuscular Volume 81 fL (80-94); Mean Platelet Volume 8.7 fL (7.4-10.4); Platelet Count 170 10^3/uL (150-450); Red Blood Count 2.89 10^6 /uL (4.18-5.48); Red Cell Distribution Width 18 % (10-15); White Blood Count 5.9 10^3/uL (3.5-10.8)
[2020-09-24 04:38] LABS: BUN/Creatinine Ratio 23.3 (8-20); Calcium 8.1 mg/dL (8.6-10.3); EGFR African American 45.8 (>60); EGFR Non-African American 37.8 (>60); Phosphorus 3.3 mg/dL (2.5-5.0); Potassium 4.8 mmol/L (3.5-5.0)
[2020-09-24] MEDS: Heparin 5000 UNITS/ML 1 mL VIAL SUBCUT SCH ×3 (06:58→21:03)
[2020-09-24] MEDS ORDERED: Furosemide 20 mg/2 ml IV VIAL IV SLOW PU ONE (07:47)
[2020-09-24] MEDS: Nystatin SUSPENSION 100,000 UNITS/ML UDC PO SCH ×4 (09:51→21:02)
[2020-09-24] MEDS: Potassium Chloride LIQUID 20 MEQ/15 ML LIQUID PO SCH (09:51)
[2020-09-24] MEDS ORDERED: Sodium Chloride(INHALANT)0.9% 5 ML NEB.SOLN INH SCH (12:00)
[2020-09-24] MEDS: Sodium Chloride(INHALANT)0.9% 5 ML NEB.SOLN INH SCH ×2 (13:13→18:58)
[2020-09-24] MEDS: Insulin GLARGINE 100 un/ml 10 ml VIAL SUBCUT SCH (21:02)
[2020-09-25] MEDS: Sodium Chloride(INHALANT)0.9% 5 ML NEB.SOLN INH SCH ×4 (02:03→19:08)
[2020-09-25] MEDS: Heparin 5000 UNITS/ML 1 mL VIAL SUBCUT SCH ×2 (04:59→16:32)
[2020-09-25 05:16] LABS: ABS Eosinophils 0.2 10^3/ul (0-0.6); ABS Lymphocytes 1.1 10^3/ul (1.0-4.8); ABS Monocytes 0.4 10^3/ul (0-0.8); ABS Neutrophils 4.3 10^3/ul (1.5-7.7); Eosinophil % 3.4 %; Hematocrit 23 % (42-52); Hemoglobin 7.2 g/dL (14.0-18.0); Lymphocyte % 17.9 %; Mean Corpuscular HGB Conc 31 g/dL (31-36); Mean Corpuscular Hemoglobin 26 pg (27-31); Mean Corpuscular Volume 82 fL (80-94); Mean Platelet Volume 8.7 fL (7.4-10.4); Platelet Count 174 10^3/uL (150-450); Red Blood Count 2.83 10^6 /uL (4.18-5.48); Red Cell Distribution Width 17 % (10-15)
[2020-09-25 05:34] LABS: ALT < 3 U/L (7-52); AST 8 U/L (13-39); Albumin 2.7 g/dL (3.2-5.2); Albumin/Globulin Ratio 0.7 (1-3); Alkaline Phosphatase 67 U/L (34-104); BUN/Creatinine Ratio 24.7 (8-20); Blood Urea Nitrogen 45 mg/dL (6-24); CO2 Carbon Dioxide 32 mmol/L (22-32); Calcium 8.1 mg/dL (8.6-10.3); Chloride 107 mmol/L (101-111); EGFR African American 45.2 (>60); EGFR Non-African American 37.3 (>60); Globulin 3.8 g/dL (2-4); Glucose 102 mg/dL (70-100); Magnesium 2.1 mg/dL (1.9-2.7); Phosphorus 3.7 mg/dL (2.5-5.0); Sodium 142 mmol/L (135-145); Total Protein 6.5 g/dL (6.4-8.9)
[2020-09-25 05:37] LABS: Anion Gap 3 mmol/L (2-11); Potassium 5.4 mmol/L (3.5-5.0)
[2020-09-25] MEDS: Potassium Chloride LIQUID 20 MEQ/15 ML LIQUID PO SCH (11:47)
[2020-09-25] MEDS: Nystatin SUSPENSION 100,000 UNITS/ML UDC PO SCH ×4 (11:47→21:34)
[2020-09-25] MEDS: Insulin GLARGINE 100 un/ml 10 ml VIAL SUBCUT SCH (21:33)
[2020-09-26] MEDS: Sodium Chloride(INHALANT)0.9% 5 ML NEB.SOLN INH SCH (00:55)
[2020-09-26] MEDS: Heparin 5000 UNITS/ML 1 mL VIAL SUBCUT SCH ×3 (01:18→14:38)
[2020-09-26] MEDS ORDERED: Propofol 10 mg/ml 100 ML BTL 100 ML ONE (04:42)
[2020-09-26 04:53] LABS: Hematocrit 27 % (42-52); Hemoglobin 8.1 g/dL (14.0-18.0); Mean Corpuscular HGB Conc 30 g/dL (31-36); Mean Corpuscular Hemoglobin 25 pg (27-31); Mean Corpuscular Volume 85 fL (80-94); Mean Platelet Volume 8.8 fL (7.4-10.4); Platelet Count 280 10^3/uL (150-450); Red Blood Count 3.18 10^6 /uL (4.18-5.48); Red Cell Distribution Width 18 % (10-15); White Blood Count 13.3 10^3/uL (3.5-10.8)
[2020-09-26] MEDS ORDERED: Sodium Bicarbonate 8.4% SYR 50 ml SYRINGE IV ONE (04:58)
[2020-09-26] MEDS ORDERED: Norepinephrine 16MCG/ML IVPRE 4,000 MCG/250 ML BAG IV SCH (05:00)
[2020-09-26] MEDS ORDERED: Propofol 10 mg/ml 100 ML BTL 100 ML IV SCH (05:00)
[2020-09-26 05:07] LABS: BUN/Creatinine Ratio 22.8 (8-20); Calcium 8.1 mg/dL (8.6-10.3); EGFR African American 33.3 (>60); EGFR Non-African American 27.5 (>60)
[2020-09-26 05:11] LABS: Potassium 6.3 mmol/L (3.5-5.0)
[2020-09-26] MEDS ORDERED: Calcium Gluconate 2 GM in NS 0.9% 100 ml BAG 100 ML IV ONE (05:12)
[2020-09-26] MEDS ORDERED: NS 0.9% 1000 ml BAG 1,000 ML IV ONE (05:23)
[2020-09-26 07:02] LABS: Hematocrit 23 % (42-52); Hemoglobin 6.9 g/dL (14.0-18.0); Mean Corpuscular HGB Conc 30 g/dL (31-36); Mean Corpuscular Hemoglobin 26 pg (27-31); Mean Corpuscular Volume 85 fL (80-94); Mean Platelet Volume 8.8 fL (7.4-10.4); Platelet Count 215 10^3/uL (150-450); Red Blood Count 2.68 10^6 /uL (4.18-5.48); Red Cell Distribution Width 18 % (10-15); White Blood Count 9.1 10^3/uL (3.5-10.8)
[2020-09-26 07:19] LABS: BUN/Creatinine Ratio 23.2 (8-20); Blood Urea Nitrogen 56 mg/dL (6-24); CO2 Carbon Dioxide 32 mmol/L (22-32); Chloride 105 mmol/L (101-111); EGFR African American 32.7 (>60); Glucose 186 mg/dL (70-100); Sodium 141 mmol/L (135-145)
[2020-09-26 07:25] LABS: Activated Partial Thrombo Time 30.1 seconds (26.0-38.0); INR 1.14 (0.82-1.09)
[2020-09-26] MEDS: Albuterol 2.5mg/3 ml (0.083%) NEB.SOLN INH SCH ×5 (07:33→23:12)
[2020-09-26 07:37] LABS: Magnesium 2.4 mg/dL (1.9-2.7)
[2020-09-26] MEDS: Propofol 10 mg/ml 100 ML BTL 100 ML IV SCH ×4 (07:40→19:00)
[2020-09-26 07:47] LABS: Anion Gap 4 mmol/L (2-11); Troponin I 0.03 ng/mL (<0.03)
[2020-09-26] MEDS ORDERED: Dextrose 50% Syringe 50 ml 25 GM/50 ML SYRINGE IV PUSH PRN ×2 (07:48→13:33)
[2020-09-26] MEDS ORDERED: NS 0.9% 100 ml BAG 0 ML ONE (07:57)
[2020-09-26] MEDS ORDERED: Calcium Gluconate 1 GM/10 ML VIAL (in Pyxis) IV PUSH ONE (08:00)
[2020-09-26 08:02] LABS: Potassium 6.8 mmol/L (3.5-5.0)
[2020-09-26 08:05] LABS: Phosphorus 5.5 mg/dL (2.5-5.0)
[2020-09-26 10:19] LABS: ALT < 3 U/L (7-52); AST 16 U/L (13-39); Albumin 2.4 g/dL (3.2-5.2); Albumin/Globulin Ratio 0.7 (1-3); Alkaline Phosphatase 77 U/L (34-104); BUN/Creatinine Ratio 23.3 (8-20); Blood Urea Nitrogen 58 mg/dL (6-24); CO2 Carbon Dioxide 30 mmol/L (22-32); Calcium 8.2 mg/dL (8.6-10.3); Chloride 106 mmol/L (101-111); EGFR African American 31.5 (>60); Globulin 3.5 g/dL (2-4); Glucose 173 mg/dL (70-100); Magnesium 2.2 mg/dL (1.9-2.7); Sodium 140 mmol/L (135-145); Total Protein 5.9 g/dL (6.4-8.9)
[2020-09-26 10:30] LABS: Anion Gap 4 mmol/L (2-11); Potassium 5.9 mmol/L (3.5-5.0)
[2020-09-26] MEDS: Nystatin SUSPENSION 100,000 UNITS/ML UDC PO SCH ×4 (12:52→20:49)
[2020-09-26] MEDS: Patiromer POWDER 8.4 GM PAK PO SCH (14:38)
[2020-09-26 16:24] LABS: BUN/Creatinine Ratio 22.9 (8-20); Calcium 8.4 mg/dL (8.6-10.3); EGFR African American 30.2 (>60)
[2020-09-26 16:26] LABS: Potassium 5.4 mmol/L (3.5-5.0)
[2020-09-26] MEDS: Cefepime ADVAN 1 GM in NS 0.9% 50 ML 50 ML IVPB SCH (18:35)
[2020-09-26] MEDS: Insulin GLARGINE 100 un/ml 10 ml VIAL SUBCUT SCH (20:49)
[2020-09-26] MEDS: Chlorhexidine MOUTHWASH 0.12% 15 ML UDC SWISH SPIT SCH (20:49)
[2020-09-26 21:19] LABS: ABS Eosinophils 0.1 10^3/ul (0-0.6); ABS Lymphocytes 1.1 10^3/ul (1.0-4.8); ABS Monocytes 0.4 10^3/ul (0-0.8); Eosinophil % 1.7 %; Hematocrit 22 % (42-52); Hemoglobin 6.8 g/dL (14.0-18.0); Lymphocyte % 16.4 %; Mean Corpuscular HGB Conc 32 g/dL (31-36); Mean Corpuscular Hemoglobin 26 pg (27-31); Mean Corpuscular Volume 81 fL (80-94); Mean Platelet Volume 8.6 fL (7.4-10.4); Platelet Count 175 10^3/uL (150-450); Red Blood Count 2.66 10^6 /uL (4.18-5.48); Red Cell Distribution Width 17 % (10-15); White Blood Count 6.6 10^3/uL (3.5-10.8)
[2020-09-26 21:37] LABS: BUN/Creatinine Ratio 22.3 (8-20); Calcium 8.4 mg/dL (8.6-10.3); EGFR African American 28.8 (>60); EGFR Non-African American 23.8 (>60)
[2020-09-26 21:39] LABS: Potassium 5.7 mmol/L (3.5-5.0)
[2020-09-27] MEDS: Heparin 5000 UNITS/ML 1 mL VIAL SUBCUT SCH ×3 (00:16→15:18)
[2020-09-27] MEDS: Propofol 10 mg/ml 100 ML BTL 100 ML IV SCH ×4 (03:43→11:40)
[2020-09-27] MEDS: Albuterol 2.5mg/3 ml (0.083%) NEB.SOLN INH SCH ×6 (03:57→23:29)
[2020-09-27 04:54] LABS: ABS Eosinophils 0.2 10^3/ul (0-0.6); ABS Lymphocytes 1.3 10^3/ul (1.0-4.8); ABS Monocytes 0.3 10^3/ul (0-0.8); Eosinophil % 2.6 %; Hematocrit 21 % (42-52); Hemoglobin 6.6 g/dL (14.0-18.0); Mean Corpuscular HGB Conc 32 g/dL (31-36); Mean Corpuscular Hemoglobin 26 pg (27-31); Mean Corpuscular Volume 80 fL (80-94); Mean Platelet Volume 8.9 fL (7.4-10.4); Platelet Count 180 10^3/uL (150-450); Red Blood Count 2.58 10^6 /uL (4.18-5.48); Red Cell Distribution Width 18 % (10-15); White Blood Count 5.8 10^3/uL (3.5-10.8)
[2020-09-27 05:03] LABS: ALT < 3 U/L (7-52); AST 12 U/L (13-39); Albumin 2.5 g/dL (3.2-5.2); Albumin/Globulin Ratio 0.7 (1-3); Alkaline Phosphatase 66 U/L (34-104); BUN/Creatinine Ratio 21.7 (8-20); Blood Urea Nitrogen 60 mg/dL (6-24); CO2 Carbon Dioxide 29 mmol/L (22-32); Calcium 8.2 mg/dL (8.6-10.3); Chloride 105 mmol/L (101-111); EGFR African American 27.8 (>60); Globulin 3.6 g/dL (2-4); Glucose 117 mg/dL (70-100); Magnesium 2.2 mg/dL (1.9-2.7); Phosphorus 3.2 mg/dL (2.5-5.0); Sodium 141 mmol/L (135-145); Total Protein 6.1 g/dL (6.4-8.9)
[2020-09-27 05:07] LABS: Anion Gap 7 mmol/L (2-11); Potassium 5.6 mmol/L (3.5-5.0)
[2020-09-27] MEDS: Cefepime ADVAN 1 GM in NS 0.9% 50 ML 50 ML IVPB SCH (05:59)
[2020-09-27] MEDS: Nystatin SUSPENSION 100,000 UNITS/ML UDC PO SCH ×4 (07:52→21:32)
[2020-09-27] MEDS: Chlorhexidine MOUTHWASH 0.12% 15 ML UDC SWISH SPIT SCH ×3 (07:52→21:32)
[2020-09-27] MEDS: Patiromer POWDER 8.4 GM PAK PO SCH (07:52)
[2020-09-27] MEDS ORDERED: Hydrocortisone INJ 100 MG/2ML 2 ML VIAL IV ONE (08:20)
[2020-09-27] MEDS ORDERED: Patiromer POWDER 8.4 GM PAK PO ONE (08:24)
[2020-09-27] MEDS: Pantoprazole VIAL 40 MG VIAL IV SCH (08:43)
[2020-09-27] MEDS ORDERED: Sodium Bicarb 8.4% Vial 50 ML 150 MEQ in D5W 1000 ml BAG 850 ML IV SCH (09:00)
[2020-09-27] MEDS ORDERED: Hydrocortisone INJ 100 MG/2ML 2 ML VIAL ONE (09:02)
[2020-09-27] MEDS: Hydrocortisone INJ 100 MG/2ML 2 ML VIAL IV SCH (15:18)
[2020-09-27] MEDS: Cefepime 1 GM in Dextrose 1 GM/50 ML BAG IV SCH (17:47)
[2020-09-27 20:30] LABS: Hematocrit 25 % (42-52); Mean Corpuscular HGB Conc 32 g/dL (31-36); Mean Corpuscular Hemoglobin 26 pg (27-31); Mean Corpuscular Volume 82 fL (80-94); Mean Platelet Volume 8.8 fL (7.4-10.4); Platelet Count 196 10^3/uL (150-450); Red Blood Count 3.08 10^6 /uL (4.18-5.48); Red Cell Distribution Width 18 % (10-15); White Blood Count 9.1 10^3/uL (3.5-10.8)
[2020-09-27 20:47] LABS: BUN/Creatinine Ratio 20.1 (8-20); Calcium 8.1 mg/dL (8.6-10.3); EGFR African American 25.1 (>60); EGFR Non-African American 20.7 (>60)
[2020-09-27 20:48] LABS: Potassium 5.6 mmol/L (3.5-5.0)
[2020-09-27] MEDS: Insulin GLARGINE 100 un/ml 10 ml VIAL SUBCUT SCH (21:33)
[2020-09-28] MEDS: Hydrocortisone INJ 100 MG/2ML 2 ML VIAL IV SCH ×3 (01:09→17:22)
[2020-09-28] MEDS: Heparin 5000 UNITS/ML 1 mL VIAL SUBCUT SCH ×3 (01:09→17:25)
[2020-09-28] MEDS: Albuterol 2.5mg/3 ml (0.083%) NEB.SOLN INH SCH ×6 (03:02→23:02)
[2020-09-28 05:01] LABS: Hematocrit 23 % (42-52); Hemoglobin 7.5 g/dL (14.0-18.0); Mean Corpuscular HGB Conc 32 g/dL (31-36); Mean Corpuscular Hemoglobin 26 pg (27-31); Mean Corpuscular Volume 81 fL (80-94); Mean Platelet Volume 9.1 fL (7.4-10.4); Platelet Count 199 10^3/uL (150-450); Red Blood Count 2.87 10^6 /uL (4.18-5.48); Red Cell Distribution Width 17 % (10-15); White Blood Count 8.5 10^3/uL (3.5-10.8)
[2020-09-28 05:22] LABS: BUN/Creatinine Ratio 19.9 (8-20); Calcium 8.1 mg/dL (8.6-10.3); EGFR African American 23.8 (>60); EGFR Non-African American 19.7 (>60); Magnesium 2.1 mg/dL (1.9-2.7); Phosphorus 3.8 mg/dL (2.5-5.0)
[2020-09-28 05:24] LABS: Potassium 5.6 mmol/L (3.5-5.0)
[2020-09-28] MEDS: Cefepime 1 GM in Dextrose 1 GM/50 ML BAG IV SCH ×2 (06:25→17:25)
[2020-09-28] MEDS: Pantoprazole VIAL 40 MG VIAL IV SCH (09:19)
[2020-09-28] MEDS: Chlorhexidine MOUTHWASH 0.12% 15 ML UDC SWISH SPIT SCH ×3 (09:19→20:52)
[2020-09-28] MEDS: Nystatin SUSPENSION 100,000 UNITS/ML UDC PO SCH ×4 (09:19→20:52)
[2020-09-28] MEDS: Patiromer POWDER 8.4 GM PAK PO SCH (09:37)
[2020-09-28] MEDS: Psyllium PAK PO SCH (17:25)
[2020-09-28] MEDS: Insulin GLARGINE 100 un/ml 10 ml VIAL SUBCUT SCH (20:53)
[2020-09-29] MEDS: Hydrocortisone INJ 100 MG/2ML 2 ML VIAL IV SCH (00:52)
[2020-09-29] MEDS: Heparin 5000 UNITS/ML 1 mL VIAL SUBCUT SCH ×3 (00:52→18:14)
[2020-09-29] MEDS: Albuterol 2.5mg/3 ml (0.083%) NEB.SOLN INH SCH ×6 (03:26→23:48)
[2020-09-29 05:10] LABS: Hematocrit 21 % (42-52); Hemoglobin 6.6 g/dL (14.0-18.0); Mean Corpuscular HGB Conc 31 g/dL (31-36); Mean Corpuscular Hemoglobin 25 pg (27-31); Mean Corpuscular Volume 82 fL (80-94); Mean Platelet Volume 8.6 fL (7.4-10.4); Platelet Count 179 10^3/uL (150-450); Red Blood Count 2.59 10^6 /uL (4.18-5.48); Red Cell Distribution Width 18 % (10-15); White Blood Count 6.6 10^3/uL (3.5-10.8)
[2020-09-29 05:29] LABS: Calcium 7.7 mg/dL (8.6-10.3); EGFR African American 22.8 (>60); EGFR Non-African American 18.9 (>60); Magnesium 2.1 mg/dL (1.9-2.7); Phosphorus 4.6 mg/dL (2.5-5.0)
[2020-09-29] MEDS: Cefepime 1 GM in Dextrose 1 GM/50 ML BAG IV SCH (05:38)
[2020-09-29 06:05] LABS: Potassium 5.1 mmol/L (3.5-5.0)
[2020-09-29] MEDS ORDERED: Furosemide 40 mg/4 ml IV VIAL IV ONE ×2 (08:33→12:37)
[2020-09-29] MEDS: Nystatin SUSPENSION 100,000 UNITS/ML UDC PO SCH ×5 (08:40→21:10)
[2020-09-29] MEDS: Psyllium PAK PO SCH (08:40)
[2020-09-29] MEDS: Chlorhexidine MOUTHWASH 0.12% 15 ML UDC SWISH SPIT SCH ×3 (08:40→21:02)
[2020-09-29] MEDS: Pantoprazole VIAL 40 MG VIAL IV SCH (08:41)
[2020-09-29] MEDS: Patiromer POWDER 8.4 GM PAK PO SCH (08:41)
[2020-09-29] MEDS: Insulin GLARGINE 100 un/ml 10 ml VIAL SUBCUT SCH (21:03)
[2020-09-29] MEDS ORDERED: Albuterol 2.5mg/3 ml (0.083%) NEB.SOLN INH ONE (22:47)
[2020-09-30] MEDS: Heparin 5000 UNITS/ML 1 mL VIAL SUBCUT SCH ×3 (00:40→15:02)
[2020-09-30] MEDS: Albuterol 2.5mg/3 ml (0.083%) NEB.SOLN INH SCH (02:59)
[2020-09-30 05:23] LABS: BUN/Creatinine Ratio 22.5 (8-20); Calcium 7.8 mg/dL (8.6-10.3); EGFR African American 22.8 (>60); EGFR Non-African American 18.9 (>60); Potassium 4.1 mmol/L (3.5-5.0)
[2020-09-30] MEDS ORDERED: Furosemide 40 mg/4 ml IV VIAL IV ONE (08:35)
[2020-09-30] MEDS: Pantoprazole VIAL 40 MG VIAL IV SCH (09:13)
[2020-09-30] MEDS: Chlorhexidine MOUTHWASH 0.12% 15 ML UDC SWISH SPIT SCH ×2 (09:13→13:53)
[2020-09-30] MEDS: Nystatin SUSPENSION 100,000 UNITS/ML UDC PO SCH ×4 (09:14→21:58)
[2020-09-30] MEDS: Psyllium PAK PO SCH (09:14)
[2020-09-30 11:04] LABS: ABS Lymphocytes 1.1 10^3/ul (1.0-4.8); ABS Monocytes 0.4 10^3/ul (0-0.8); ABS Neutrophils 5.5 10^3/ul (1.5-7.7); Eosinophil % 0.7 %; Hematocrit 25 % (42-52); Hemoglobin 7.9 g/dL (14.0-18.0); Lymphocyte % 15.3 %; Mean Corpuscular HGB Conc 32 g/dL (31-36); Mean Corpuscular Hemoglobin 26 pg (27-31); Mean Corpuscular Volume 82 fL (80-94); Mean Platelet Volume 8.4 fL (7.4-10.4); Platelet Count 219 10^3/uL (150-450); Red Blood Count 3.01 10^6 /uL (4.18-5.48); Red Cell Distribution Width 17 % (10-15); White Blood Count 7.1 10^3/uL (3.5-10.8)
[2020-09-30] MEDS ORDERED: Insulin GLARGINE 100 un/ml 10 ml VIAL SUBCUT SCH ×2 (21:00)
[2020-10-01] MEDS: Chlorhexidine MOUTHWASH 0.12% 15 ML UDC SWISH SPIT SCH ×4 (01:12→22:08)
[2020-10-01] MEDS: Heparin 5000 UNITS/ML 1 mL VIAL SUBCUT SCH ×3 (01:16→17:14)
[2020-10-01 06:26] LABS: ABS Eosinophils 0.1 10^3/ul (0-0.6); ABS Lymphocytes 1.9 10^3/ul (1.0-4.8); ABS Monocytes 0.6 10^3/ul (0-0.8); ABS Neutrophils 4.9 10^3/ul (1.5-7.7); Eosinophil % 0.8 %; Hematocrit 27 % (42-52); Hemoglobin 8.5 g/dL (14.0-18.0); Lymphocyte % 24.9 %; Mean Corpuscular HGB Conc 32 g/dL (31-36); Mean Corpuscular Hemoglobin 26 pg (27-31); Mean Corpuscular Volume 81 fL (80-94); Mean Platelet Volume 8.6 fL (7.4-10.4); Platelet Count 258 10^3/uL (150-450); Red Blood Count 3.29 10^6 /uL (4.18-5.48); Red Cell Distribution Width 18 % (10-15); White Blood Count 7.5 10^3/uL (3.5-10.8)
[2020-10-01 06:46] LABS: BUN/Creatinine Ratio 26.1 (8-20); Calcium 7.9 mg/dL (8.6-10.3); EGFR African American 23.4 (>60); EGFR Non-African American 19.3 (>60); Potassium 3.6 mmol/L (3.5-5.0)
[2020-10-01] MEDS: Hydrocortisone INJ 100 MG/2ML 2 ML VIAL IV SCH (07:38)
[2020-10-01] MEDS: Nystatin SUSPENSION 100,000 UNITS/ML UDC PO SCH ×4 (08:27→22:17)
[2020-10-01] MEDS: Psyllium PAK PO SCH ×2 (08:28→09:20)
[2020-10-01] MEDS: Furosemide 40 mg/4 ml IV VIAL IV SCH (08:28)
[2020-10-01] MEDS: Pantoprazole VIAL 40 MG VIAL IV SCH (08:28)
[2020-10-01] MEDS ORDERED: Polyethylene Glycol 3350 17 GM PACKET PO PRN (09:27)
[2020-10-01] MEDS: Saline FLUSH-CENTRAL 10 ML SYRINGE CENT\\PICC SCH (09:50)
[2020-10-01] MEDS: Insulin GLARGINE 100 un/ml 10 ml VIAL SUBCUT SCH (22:09)
[2020-10-02] MEDS: Saline FLUSH-CENTRAL 10 ML SYRINGE CENT\\PICC SCH ×3 (01:14→20:30)
[2020-10-02] MEDS: Heparin 5000 UNITS/ML 1 mL VIAL SUBCUT SCH ×3 (01:15→16:36)
[2020-10-02 05:30] LABS: ABS Eosinophils 0.2 10^3/ul (0-0.6); ABS Lymphocytes 1.8 10^3/ul (1.0-4.8); ABS Monocytes 0.6 10^3/ul (0-0.8); ABS Neutrophils 4.9 10^3/ul (1.5-7.7); Hematocrit 28 % (42-52); Hemoglobin 9.1 g/dL (14.0-18.0); Lymphocyte % 23.9 %; Mean Corpuscular HGB Conc 32 g/dL (31-36); Mean Corpuscular Hemoglobin 26 pg (27-31); Mean Corpuscular Volume 82 fL (80-94); Mean Platelet Volume 8.6 fL (7.4-10.4); Platelet Count 276 10^3/uL (150-450); Red Blood Count 3.46 10^6 /uL (4.18-5.48); Red Cell Distribution Width 17 % (10-15); White Blood Count 7.5 10^3/uL (3.5-10.8)
[2020-10-02 05:53] LABS: BUN/Creatinine Ratio 27.5 (8-20); Calcium 7.9 mg/dL (8.6-10.3); EGFR African American 25.6 (>60); EGFR Non-African American 21.1 (>60); Magnesium 1.9 mg/dL (1.9-2.7); Potassium 3.3 mmol/L (3.5-5.0)
[2020-10-02] MEDS ORDERED: Potassium Chlor 20 meq TAB.ER PO ONE (08:01)
[2020-10-02] MEDS: Chlorhexidine MOUTHWASH 0.12% 15 ML UDC SWISH SPIT SCH ×3 (09:24→20:28)
[2020-10-02] MEDS: Furosemide 40 mg/4 ml IV VIAL IV SCH (09:25)
[2020-10-02] MEDS: Pantoprazole VIAL 40 MG VIAL IV SCH (09:25)
[2020-10-02] MEDS: Nystatin SUSPENSION 100,000 UNITS/ML UDC PO SCH ×4 (09:25→20:28)
[2020-10-02] MEDS: Insulin GLARGINE 100 un/ml 10 ml VIAL SUBCUT SCH (20:29)
[2020-10-03] MEDS: Heparin 5000 UNITS/ML 1 mL VIAL SUBCUT SCH ×4 (00:45→23:33)
[2020-10-03 05:51] LABS: ABS Eosinophils 0.3 10^3/ul (0-0.6); ABS Lymphocytes 1.8 10^3/ul (1.0-4.8); ABS Monocytes 0.5 10^3/ul (0-0.8); ABS Neutrophils 4.3 10^3/ul (1.5-7.7); Eosinophil % 4.7 %; Hematocrit 27 % (42-52); Hemoglobin 8.5 g/dL (14.0-18.0); Lymphocyte % 25.4 %; Mean Corpuscular HGB Conc 32 g/dL (31-36); Mean Corpuscular Hemoglobin 26 pg (27-31); Mean Corpuscular Volume 81 fL (80-94); Mean Platelet Volume 8.5 fL (7.4-10.4); Platelet Count 260 10^3/uL (150-450); Red Blood Count 3.28 10^6 /uL (4.18-5.48); Red Cell Distribution Width 17 % (10-15); White Blood Count 6.9 10^3/uL (3.5-10.8)
[2020-10-03 06:10] LABS: Calcium 7.9 mg/dL (8.6-10.3); Magnesium 1.9 mg/dL (1.9-2.7); Potassium 3.3 mmol/L (3.5-5.0)
[2020-10-03] MEDS: Furosemide 40 mg/4 ml IV VIAL IV SCH (08:01)
[2020-10-03] MEDS: Chlorhexidine MOUTHWASH 0.12% 15 ML UDC SWISH SPIT SCH ×3 (08:01→21:23)
[2020-10-03] MEDS: Pantoprazole VIAL 40 MG VIAL IV SCH (08:02)
[2020-10-03] MEDS: Nystatin SUSPENSION 100,000 UNITS/ML UDC PO SCH ×4 (08:02→21:23)
[2020-10-03] MEDS: Saline FLUSH-CENTRAL 10 ML SYRINGE CENT\\PICC SCH ×2 (08:02→21:24)
[2020-10-03] MEDS ORDERED: Perflutren Lipid Microsphere 3 ML VIAL ONE (08:54)
[2020-10-03] MEDS ORDERED: Potassium Chloride LIQUID 20 MEQ/15 ML LIQUID PO ONE (09:48)
[2020-10-03] MEDS ORDERED: KCL 20 MEQ/100 ML IVPREMIX 20 MEQ/100 ML BAG IV SCH (10:00)
[2020-10-03] MEDS: Insulin GLARGINE 100 un/ml 10 ml VIAL SUBCUT SCH (21:24)
[2020-10-04 04:14] LABS: ABS Eosinophils 0.3 10^3/ul (0-0.6); ABS Monocytes 0.4 10^3/ul (0-0.8); ABS Neutrophils 4.2 10^3/ul (1.5-7.7); Eosinophil % 3.6 %; Hematocrit 27 % (42-52); Hemoglobin 8.7 g/dL (14.0-18.0); Lymphocyte % 28.9 %; Mean Corpuscular HGB Conc 32 g/dL (31-36); Mean Corpuscular Hemoglobin 26 pg (27-31); Mean Corpuscular Volume 82 fL (80-94); Mean Platelet Volume 8.4 fL (7.4-10.4); Platelet Count 254 10^3/uL (150-450); Red Blood Count 3.34 10^6 /uL (4.18-5.48); Red Cell Distribution Width 18 % (10-15)
[2020-10-04 04:22] LABS: BUN/Creatinine Ratio 30.3 (8-20); Calcium 7.9 mg/dL (8.6-10.3); EGFR African American 29.4 (>60); EGFR Non-African American 24.3 (>60); Magnesium 1.9 mg/dL (1.9-2.7); Potassium 3.6 mmol/L (3.5-5.0)
[2020-10-04] MEDS: Heparin 5000 UNITS/ML 1 mL VIAL SUBCUT SCH ×3 (09:51→23:41)
[2020-10-04] MEDS: Nystatin SUSPENSION 100,000 UNITS/ML UDC PO SCH ×4 (09:52→21:05)
[2020-10-04] MEDS: Chlorhexidine MOUTHWASH 0.12% 15 ML UDC SWISH SPIT SCH ×3 (09:52→21:05)
[2020-10-04] MEDS: Pantoprazole VIAL 40 MG VIAL IV SCH (09:53)
[2020-10-04] MEDS: Furosemide 40 mg/4 ml IV VIAL IV SCH (09:53)
[2020-10-04] MEDS: Saline FLUSH-CENTRAL 10 ML SYRINGE CENT\\PICC SCH ×2 (09:53→21:08)
[2020-10-04] MEDS: Insulin GLARGINE 100 un/ml 10 ml VIAL SUBCUT SCH (21:06)
[2020-10-05 05:27] LABS: Hematocrit 27 % (42-52); Hemoglobin 8.5 g/dL (14.0-18.0); Mean Corpuscular HGB Conc 32 g/dL (31-36); Mean Corpuscular Hemoglobin 26 pg (27-31); Mean Corpuscular Volume 82 fL (80-94); Platelet Count 226 10^3/uL (150-450); Red Blood Count 3.26 10^6 /uL (4.18-5.48); Red Cell Distribution Width 18 % (10-15); White Blood Count 5.5 10^3/uL (3.5-10.8)
[2020-10-05 05:43] LABS: BUN/Creatinine Ratio 31.8 (8-20); Calcium 7.9 mg/dL (8.6-10.3); EGFR African American 32.5 (>60); EGFR Non-African American 26.9 (>60); Potassium 3.6 mmol/L (3.5-5.0)
[2020-10-05] MEDS ORDERED: Potassium Chloride LIQUID 20 MEQ/15 ML LIQUID PO ONE (09:10)
[2020-10-05] MEDS: Heparin 5000 UNITS/ML 1 mL VIAL SUBCUT SCH ×2 (09:18→16:56)
[2020-10-05] MEDS: Pantoprazole VIAL 40 MG VIAL IV SCH (09:19)
[2020-10-05] MEDS: Nystatin SUSPENSION 100,000 UNITS/ML UDC PO SCH ×4 (09:19→20:58)
[2020-10-05] MEDS: Chlorhexidine MOUTHWASH 0.12% 15 ML UDC SWISH SPIT SCH ×3 (09:19→20:58)
[2020-10-05] MEDS: Furosemide 40 mg/4 ml IV VIAL IV SCH (09:19)
[2020-10-05] MEDS: Saline FLUSH-CENTRAL 10 ML SYRINGE CENT\\PICC SCH ×2 (09:35→20:59)
[2020-10-05] MEDS: Insulin GLARGINE 100 un/ml 10 ml VIAL SUBCUT SCH (20:58)
[2020-10-06] MEDS: Heparin 5000 UNITS/ML 1 mL VIAL SUBCUT SCH ×3 (00:01→17:01)
[2020-10-06 05:18] LABS: Hematocrit 27 % (42-52); Hemoglobin 8.6 g/dL (14.0-18.0); Mean Corpuscular HGB Conc 32 g/dL (31-36); Mean Corpuscular Hemoglobin 26 pg (27-31); Mean Corpuscular Volume 83 fL (80-94); Mean Platelet Volume 8.3 fL (7.4-10.4); Platelet Count 207 10^3/uL (150-450); Red Blood Count 3.27 10^6 /uL (4.18-5.48); Red Cell Distribution Width 18 % (10-15); White Blood Count 9.2 10^3/uL (3.5-10.8)
[2020-10-06 05:56] LABS: BUN/Creatinine Ratio 32.8 (8-20); Calcium 8.3 mg/dL (8.6-10.3); EGFR African American 32.2 (>60); EGFR Non-African American 26.6 (>60)
[2020-10-06] MEDS: Nystatin SUSPENSION 100,000 UNITS/ML UDC PO SCH ×4 (09:27→22:13)
[2020-10-06] MEDS: Chlorhexidine MOUTHWASH 0.12% 15 ML UDC SWISH SPIT SCH ×3 (09:27→22:13)
[2020-10-06] MEDS: Pantoprazole VIAL 40 MG VIAL IV SCH (09:28)
[2020-10-06] MEDS: Furosemide 40 mg/4 ml IV VIAL IV SCH (09:29)
[2020-10-06] MEDS: Saline FLUSH-CENTRAL 10 ML SYRINGE CENT\\PICC SCH ×2 (10:00→22:14)
[2020-10-06] MEDS ORDERED: Pancrelipase 5,000 units CAP G TUBE ONE (14:53)
[2020-10-06] MEDS ORDERED: NS 0.9% 500 ml BAG 500 ML IV ONE ×2 (16:35→17:38)
[2020-10-06 19:52] LABS: ABS Basophils 0.1 10^3/ul (0-0.2); ABS Eosinophils 0.1 10^3/ul (0-0.6); ABS Lymphocytes 2.2 10^3/ul (1.0-4.8); ABS Monocytes 0.7 10^3/ul (0-0.8); ABS Neutrophils 5.1 10^3/ul (1.5-7.7); Eosinophil % 1.1 %; Hematocrit 26 % (42-52); Hemoglobin 8.3 g/dL (14.0-18.0); Lymphocyte % 26.8 %; Mean Corpuscular HGB Conc 32 g/dL (31-36); Mean Corpuscular Hemoglobin 27 pg (27-31); Mean Corpuscular Volume 82 fL (80-94); Mean Platelet Volume 8.4 fL (7.4-10.4); Platelet Count 189 10^3/uL (150-450); Red Blood Count 3.11 10^6 /uL (4.18-5.48); Red Cell Distribution Width 18 % (10-15); White Blood Count 8.2 10^3/uL (3.5-10.8)
[2020-10-06 20:08] LABS: BUN/Creatinine Ratio 29.1 (8-20); Calcium 8.3 mg/dL (8.6-10.3); EGFR African American 26.5 (>60); EGFR Non-African American 21.9 (>60); Potassium 4.1 mmol/L (3.5-5.0)
[2020-10-06] MEDS: Insulin GLARGINE 100 un/ml 10 ml VIAL SUBCUT SCH (22:09)
[2020-10-06] MEDS ORDERED: NS 0.9% 1000 ml BAG 1,000 ML IV SCH (22:15)
[2020-10-07] MEDS: Heparin 5000 UNITS/ML 1 mL VIAL SUBCUT SCH ×3 (00:35→16:09)
[2020-10-07 05:54] LABS: Hematocrit 25 % (42-52); Mean Corpuscular HGB Conc 32 g/dL (31-36); Mean Corpuscular Hemoglobin 27 pg (27-31); Mean Corpuscular Volume 83 fL (80-94); Mean Platelet Volume 8.9 fL (7.4-10.4); Platelet Count 192 10^3/uL (150-450); Red Blood Count 3.02 10^6 /uL (4.18-5.48); Red Cell Distribution Width 18 % (10-15); White Blood Count 7.3 10^3/uL (3.5-10.8)
[2020-10-07 06:13] LABS: BUN/Creatinine Ratio 27.2 (8-20); Calcium 7.8 mg/dL (8.6-10.3); EGFR African American 24.2 (>60); Magnesium 2.1 mg/dL (1.9-2.7); Potassium 4.1 mmol/L (3.5-5.0)
[2020-10-07] MEDS: Nystatin SUSPENSION 100,000 UNITS/ML UDC PO SCH ×4 (08:06→20:53)
[2020-10-07] MEDS: Chlorhexidine MOUTHWASH 0.12% 15 ML UDC SWISH SPIT SCH ×3 (08:07→20:55)
[2020-10-07] MEDS: Pantoprazole VIAL 40 MG VIAL IV SCH (08:07)
[2020-10-07] MEDS: Saline FLUSH-CENTRAL 10 ML SYRINGE CENT\\PICC SCH ×2 (10:43→21:11)
[2020-10-07 18:57] LABS: Urine Appearance Cloudy; Urine Bilirubin Negative (Negative); Urine Blood 1+ (Negative); Urine Color Amber; Urine Glucose Negative (Negative); Urine Ketones Negative (Negative); Urine Nitrite Negative (Negative); Urine Protein 2+(100 mg/dL) (Negative); Urine Specific Gravity 1.016 (1.010-1.030); Urine Urobilinogen Negative (Negative)
[2020-10-07 19:05] LABS: Urine Bacteria 1+ (Absent); Urine Red Blood Cell 2+(6-10/hpf) (Absent); Urine Squamous Epithelial Cell Present (Absent); Urine White Blood Cell Trace(0-5/hpf) (Absent)
[2020-10-07] MEDS: Insulin GLARGINE 100 un/ml 10 ml VIAL SUBCUT SCH (20:54)
[2020-10-08] MEDS: Heparin 5000 UNITS/ML 1 mL VIAL SUBCUT SCH ×3 (00:37→17:07)
[2020-10-08 05:42] LABS: ABS Eosinophils 0.2 10^3/ul (0-0.6); ABS Lymphocytes 1.8 10^3/ul (1.0-4.8); ABS Monocytes 0.6 10^3/ul (0-0.8); ABS Neutrophils 4.4 10^3/ul (1.5-7.7); Eosinophil % 2.3 %; Hematocrit 25 % (42-52); Hemoglobin 7.8 g/dL (14.0-18.0); Lymphocyte % 26.1 %; Mean Corpuscular HGB Conc 32 g/dL (31-36); Mean Corpuscular Hemoglobin 27 pg (27-31); Mean Corpuscular Volume 83 fL (80-94); Mean Platelet Volume 9.3 fL (7.4-10.4); Platelet Count 210 10^3/uL (150-450); Red Blood Count 2.95 10^6 /uL (4.18-5.48); Red Cell Distribution Width 18 % (10-15)
[2020-10-08 06:08] LABS: BUN/Creatinine Ratio 27.3 (8-20); Calcium 8.1 mg/dL (8.6-10.3); EGFR African American 23.6 (>60); EGFR Non-African American 19.5 (>60); Potassium 4.2 mmol/L (3.5-5.0)
[2020-10-08] MEDS: Nystatin SUSPENSION 100,000 UNITS/ML UDC PO SCH ×4 (10:13→20:35)
[2020-10-08] MEDS: Chlorhexidine MOUTHWASH 0.12% 15 ML UDC SWISH SPIT SCH ×3 (10:13→20:35)
[2020-10-08] MEDS: Saline FLUSH-CENTRAL 10 ML SYRINGE CENT\\PICC SCH ×2 (10:14→22:00)
[2020-10-08] MEDS: Pantoprazole VIAL 40 MG VIAL IV SCH (10:14)
[2020-10-08] MEDS: Insulin GLARGINE 100 un/ml 10 ml VIAL SUBCUT SCH (20:36)
[2020-10-09] MEDS: Heparin 5000 UNITS/ML 1 mL VIAL SUBCUT SCH ×3 (00:54→18:04)
[2020-10-09 05:31] LABS: ABS Basophils 0.1 10^3/ul (0-0.2); ABS Eosinophils 0.2 10^3/ul (0-0.6); ABS Lymphocytes 1.6 10^3/ul (1.0-4.8); ABS Monocytes 0.5 10^3/ul (0-0.8); ABS Neutrophils 5.1 10^3/ul (1.5-7.7); Eosinophil % 2.4 %; Hematocrit 25 % (42-52); Hemoglobin 7.8 g/dL (14.0-18.0); Lymphocyte % 22.1 %; Mean Corpuscular HGB Conc 32 g/dL (31-36); Mean Corpuscular Hemoglobin 26 pg (27-31); Mean Corpuscular Volume 83 fL (80-94); Mean Platelet Volume 9.2 fL (7.4-10.4); Platelet Count 211 10^3/uL (150-450); Red Blood Count 2.96 10^6 /uL (4.18-5.48); Red Cell Distribution Width 18 % (10-15); White Blood Count 7.4 10^3/uL (3.5-10.8)
[2020-10-09 05:57] LABS: BUN/Creatinine Ratio 28.1 (8-20); Calcium 8.1 mg/dL (8.6-10.3); EGFR African American 23.2 (>60); EGFR Non-African American 19.2 (>60)
[2020-10-09] MEDS: Chlorhexidine MOUTHWASH 0.12% 15 ML UDC SWISH SPIT SCH ×5 (09:47→21:16)
[2020-10-09] MEDS: Pantoprazole VIAL 40 MG VIAL IV SCH (09:47)
[2020-10-09] MEDS: Nystatin SUSPENSION 100,000 UNITS/ML UDC PO SCH ×5 (09:48→21:02)
[2020-10-09] MEDS: Saline FLUSH-CENTRAL 10 ML SYRINGE CENT\\PICC SCH ×2 (10:00→21:14)
[2020-10-09] MEDS: Insulin GLARGINE 100 un/ml 10 ml VIAL SUBCUT SCH (21:03)
[2020-10-10] MEDS: Heparin 5000 UNITS/ML 1 mL VIAL SUBCUT SCH ×3 (00:55→16:33)
[2020-10-10 04:49] LABS: ABS Eosinophils 0.2 10^3/ul (0-0.6); ABS Lymphocytes 1.5 10^3/ul (1.0-4.8); ABS Monocytes 0.4 10^3/ul (0-0.8); ABS Neutrophils 4.7 10^3/ul (1.5-7.7); Eosinophil % 2.5 %; Hematocrit 23 % (42-52); Hemoglobin 7.5 g/dL (14.0-18.0); Lymphocyte % 21.8 %; Mean Corpuscular HGB Conc 32 g/dL (31-36); Mean Corpuscular Hemoglobin 26 pg (27-31); Mean Corpuscular Volume 82 fL (80-94); Platelet Count 207 10^3/uL (150-450); Red Blood Count 2.84 10^6 /uL (4.18-5.48); Red Cell Distribution Width 18 % (10-15); White Blood Count 6.8 10^3/uL (3.5-10.8)
[2020-10-10 05:05] LABS: BUN/Creatinine Ratio 30.7 (8-20); Calcium 7.6 mg/dL (8.6-10.3); EGFR African American 25.1 (>60); EGFR Non-African American 20.7 (>60); Potassium 4.1 mmol/L (3.5-5.0)
[2020-10-10] MEDS: Pantoprazole VIAL 40 MG VIAL IV SCH (10:07)
[2020-10-10] MEDS: Nystatin SUSPENSION 100,000 UNITS/ML UDC PO SCH ×5 (10:07→20:27)
[2020-10-10] MEDS: Chlorhexidine MOUTHWASH 0.12% 15 ML UDC SWISH SPIT SCH ×3 (10:10→20:27)
[2020-10-10] MEDS: Saline FLUSH-CENTRAL 10 ML SYRINGE CENT\\PICC SCH ×2 (10:11→23:48)
[2020-10-10 13:53] LABS: Magnesium 2.3 mg/dL (1.9-2.7)
[2020-10-10] MEDS ORDERED: Calcium Gluconate 2 GM in NS 0.9% 100 ml BAG 100 ML IV ONE (14:00)
[2020-10-10] MEDS: Insulin GLARGINE 100 un/ml 10 ml VIAL SUBCUT SCH (20:50)
[2020-10-11] MEDS: Heparin 5000 UNITS/ML 1 mL VIAL SUBCUT SCH ×3 (00:19→15:19)
[2020-10-11] MEDS: Albuterol/Ipratropium NEB.SOL (2.5/0.5 MG) 3 ML NEB.SOLN INH PRN (02:05)
[2020-10-11] MEDS ORDERED: Furosemide 20 mg/2 ml IV VIAL IV ONE (02:27)
[2020-10-11 06:11] LABS: ABS Eosinophils 0.2 10^3/ul (0-0.6); ABS Lymphocytes 1.7 10^3/ul (1.0-4.8); ABS Monocytes 0.4 10^3/ul (0-0.8); ABS Neutrophils 6.1 10^3/ul (1.5-7.7); Eosinophil % 2.6 %; Hematocrit 24 % (42-52); Hemoglobin 7.6 g/dL (14.0-18.0); Lymphocyte % 20.3 %; Mean Corpuscular HGB Conc 32 g/dL (31-36); Mean Corpuscular Hemoglobin 26 pg (27-31); Mean Corpuscular Volume 82 fL (80-94); Mean Platelet Volume 8.5 fL (7.4-10.4); Platelet Count 234 10^3/uL (150-450); Red Blood Count 2.91 10^6 /uL (4.18-5.48); Red Cell Distribution Width 18 % (10-15); White Blood Count 8.4 10^3/uL (3.5-10.8)
[2020-10-11 06:35] LABS: BUN/Creatinine Ratio 29.3 (8-20); EGFR African American 24.3 (>60); EGFR Non-African American 20.1 (>60); Potassium 4.4 mmol/L (3.5-5.0)
[2020-10-11] MEDS: Pantoprazole VIAL 40 MG VIAL IV SCH (08:28)
[2020-10-11] MEDS: Nystatin SUSPENSION 100,000 UNITS/ML UDC PO SCH ×2 (08:29→12:34)
[2020-10-11] MEDS: Chlorhexidine MOUTHWASH 0.12% 15 ML UDC SWISH SPIT SCH ×3 (08:29→20:25)
[2020-10-11] MEDS: Saline FLUSH-CENTRAL 10 ML SYRINGE CENT\\PICC SCH ×2 (08:30→20:26)
[2020-10-11] MEDS: Insulin GLARGINE 100 un/ml 10 ml VIAL SUBCUT SCH (20:25)
[2020-10-12] MEDS: Heparin 5000 UNITS/ML 1 mL VIAL SUBCUT SCH ×4 (00:12→23:51)
[2020-10-12] MEDS: Chlorhexidine MOUTHWASH 0.12% 15 ML UDC SWISH SPIT SCH ×3 (09:18→19:44)
[2020-10-12] MEDS: Saline FLUSH-CENTRAL 10 ML SYRINGE CENT\\PICC SCH ×2 (09:19→23:41)
[2020-10-12] MEDS: Insulin GLARGINE 100 un/ml 10 ml VIAL SUBCUT SCH (20:18)
[2020-10-13 04:28] LABS: ABS Basophils 0.1 10^3/ul (0-0.2); ABS Eosinophils 0.2 10^3/ul (0-0.6); ABS Lymphocytes 1.5 10^3/ul (1.0-4.8); ABS Monocytes 0.4 10^3/ul (0-0.8); Eosinophil % 3.6 %; Hematocrit 24 % (42-52); Hemoglobin 7.5 g/dL (14.0-18.0); Lymphocyte % 24.5 %; Mean Corpuscular HGB Conc 32 g/dL (31-36); Mean Corpuscular Hemoglobin 26 pg (27-31); Mean Corpuscular Volume 83 fL (80-94); Mean Platelet Volume 8.3 fL (7.4-10.4); Platelet Count 223 10^3/uL (150-450); Red Blood Count 2.87 10^6 /uL (4.18-5.48); Red Cell Distribution Width 18 % (10-15); White Blood Count 6.3 10^3/uL (3.5-10.8)
[2020-10-13 04:42] LABS: BUN/Creatinine Ratio 32.9 (8-20); Calcium 8.2 mg/dL (8.6-10.3); EGFR Non-African American 25.7 (>60); Potassium 4.4 mmol/L (3.5-5.0)
[2020-10-13] MEDS: Heparin 5000 UNITS/ML 1 mL VIAL SUBCUT SCH ×3 (09:04→23:12)
[2020-10-13] MEDS: Chlorhexidine MOUTHWASH 0.12% 15 ML UDC SWISH SPIT SCH (09:25)
[2020-10-13] MEDS: Saline FLUSH-CENTRAL 10 ML SYRINGE CENT\\PICC SCH ×2 (10:10→23:12)
[2020-10-13] MEDS: Psyllium PAK PO SCH (17:40)
[2020-10-13] MEDS: Insulin GLARGINE 100 un/ml 10 ml VIAL SUBCUT SCH (20:30)
[2020-10-14] MEDS: Psyllium PAK PO SCH (08:17)
[2020-10-14] MEDS: Heparin 5000 UNITS/ML 1 mL VIAL SUBCUT SCH ×2 (08:19→17:30)
[2020-10-14] MEDS: Saline FLUSH-CENTRAL 10 ML SYRINGE CENT\\PICC SCH ×2 (08:21→21:36)
[2020-10-14] MEDS: Insulin GLARGINE 100 un/ml 10 ml VIAL SUBCUT SCH (23:20)
[2020-10-15] MEDS: Heparin 5000 UNITS/ML 1 mL VIAL SUBCUT SCH ×4 (00:56→23:29)
[2020-10-15] MEDS: Saline FLUSH-CENTRAL 10 ML SYRINGE CENT\\PICC SCH ×2 (08:05→21:39)
[2020-10-15] MEDS: Insulin GLARGINE 100 un/ml 10 ml VIAL SUBCUT SCH (21:39)
[2020-10-16 04:15] LABS: ABS Eosinophils 0.1 10^3/ul (0-0.6); ABS Monocytes 0.5 10^3/ul (0-0.8); ABS Neutrophils 3.3 10^3/ul (1.5-7.7); Eosinophil % 2.2 %; Hematocrit 23 % (42-52); Hemoglobin 7.3 g/dL (14.0-18.0); Lymphocyte % 33.9 %; Mean Corpuscular HGB Conc 32 g/dL (31-36); Mean Corpuscular Hemoglobin 26 pg (27-31); Mean Corpuscular Volume 82 fL (80-94); Mean Platelet Volume 7.9 fL (7.4-10.4); Platelet Count 207 10^3/uL (150-450); Red Blood Count 2.77 10^6 /uL (4.18-5.48); Red Cell Distribution Width 18 % (10-15); White Blood Count 5.9 10^3/uL (3.5-10.8)
[2020-10-16 04:25] LABS: BUN/Creatinine Ratio 29.2 (8-20); Calcium 8.5 mg/dL (8.6-10.3); EGFR African American 32.4 (>60); EGFR Non-African American 26.8 (>60); Potassium 4.3 mmol/L (3.5-5.0)
[2020-10-16] MEDS: Dextrose 50% Syringe 50 ml 25 GM/50 ML SYRINGE IV PUSH PRN (06:08)
[2020-10-16] MEDS: Heparin 5000 UNITS/ML 1 mL VIAL SUBCUT SCH ×2 (08:59→17:24)
[2020-10-16] MEDS: Saline FLUSH-CENTRAL 10 ML SYRINGE CENT\\PICC SCH ×2 (09:52→21:25)
[2020-10-16] MEDS ORDERED: Lactated Ringers 500 ml BAG 500 ML IV ONE (16:56)
[2020-10-16] MEDS: Insulin GLARGINE 100 un/ml 10 ml VIAL SUBCUT SCH (21:25)
[2020-10-17] MEDS: Heparin 5000 UNITS/ML 1 mL VIAL SUBCUT SCH ×4 (00:36→17:45)
[2020-10-17] MEDS: Saline FLUSH-CENTRAL 10 ML SYRINGE CENT\\PICC SCH ×2 (10:44→20:33)
[2020-10-17] MEDS: Insulin GLARGINE 100 un/ml 10 ml VIAL SUBCUT SCH (20:18)
[2020-10-18] MEDS: Heparin 5000 UNITS/ML 1 mL VIAL SUBCUT SCH ×3 (01:25→17:41)
[2020-10-18 03:52] LABS: Hematocrit 24 % (42-52); Hemoglobin 7.5 g/dL (14.0-18.0); Mean Corpuscular HGB Conc 32 g/dL (31-36); Mean Corpuscular Hemoglobin 26 pg (27-31); Mean Corpuscular Volume 82 fL (80-94); Mean Platelet Volume 7.7 fL (7.4-10.4); Platelet Count 254 10^3/uL (150-450); Red Cell Distribution Width 17 % (10-15); White Blood Count 6.4 10^3/uL (3.5-10.8)
[2020-10-18 04:10] LABS: BUN/Creatinine Ratio 28.6 (8-20); Calcium 8.1 mg/dL (8.6-10.3); EGFR Non-African American 28.9 (>60); Potassium 4.7 mmol/L (3.5-5.0)
[2020-10-18] MEDS: Saline FLUSH-CENTRAL 10 ML SYRINGE CENT\\PICC SCH ×2 (10:05→21:58)
[2020-10-18] MEDS: Psyllium PAK PO SCH (17:50)
[2020-10-18] MEDS: Insulin GLARGINE 100 un/ml 10 ml VIAL SUBCUT SCH (21:57)
[2020-10-19] MEDS: Heparin 5000 UNITS/ML 1 mL VIAL SUBCUT SCH ×3 (00:58→17:32)
[2020-10-19] MEDS ORDERED: Loperamide LIQ 2 MG/15 ML UDC PO ONE (12:14)
[2020-10-19] MEDS: Saline FLUSH-CENTRAL 10 ML SYRINGE CENT\\PICC SCH ×2 (13:38→21:29)
[2020-10-19] MEDS ORDERED: Insulin GLARGINE 100 un/ml 10 ml VIAL SUBCUT SCH (21:00)
[2020-10-20] MEDS: Bismuth Subsalicylate 30 ML/527 MG ML PO PRN ×3 (00:29→19:28)
[2020-10-20] MEDS: Heparin 5000 UNITS/ML 1 mL VIAL SUBCUT SCH ×3 (01:04→18:02)
[2020-10-20] MEDS: Dextrose 50% Syringe 50 ml 25 GM/50 ML SYRINGE IV PUSH PRN (07:24)
[2020-10-20] MEDS: Saline FLUSH-CENTRAL 10 ML SYRINGE CENT\\PICC SCH ×2 (10:45→22:18)
[2020-10-20] MEDS: Albuterol/Ipratropium NEB.SOL (2.5/0.5 MG) 3 ML NEB.SOLN INH PRN (15:23)
[2020-10-21] MEDS: Heparin 5000 UNITS/ML 1 mL VIAL SUBCUT SCH ×3 (01:16→16:31)
[2020-10-21] MEDS: Psyllium PAK PO SCH (07:44)
[2020-10-21] MEDS: Saline FLUSH-CENTRAL 10 ML SYRINGE CENT\\PICC SCH ×2 (10:14→21:09)
[2020-10-21] MEDS: Bismuth Subsalicylate 30 ML/527 MG ML PO PRN (10:27)
[2020-10-22] MEDS: Heparin 5000 UNITS/ML 1 mL VIAL SUBCUT SCH ×3 (01:02→17:40)
[2020-10-22] MEDS: Saline FLUSH-CENTRAL 10 ML SYRINGE CENT\\PICC SCH ×2 (08:55→20:43)
[2020-10-22 09:41] LABS: ABS Eosinophils 0.2 10^3/ul (0-0.6); ABS Lymphocytes 1.7 10^3/ul (1.0-4.8); ABS Monocytes 0.5 10^3/ul (0-0.8); ABS Neutrophils 4.3 10^3/ul (1.5-7.7); Eosinophil % 2.5 %; Hematocrit 25 % (42-52); Lymphocyte % 25.7 %; Mean Corpuscular HGB Conc 31 g/dL (31-36); Mean Corpuscular Hemoglobin 26 pg (27-31); Mean Corpuscular Volume 82 fL (80-94); Mean Platelet Volume 7.4 fL (7.4-10.4); Platelet Count 288 10^3/uL (150-450); Red Cell Distribution Width 17 % (10-15); White Blood Count 6.8 10^3/uL (3.5-10.8)
[2020-10-22 10:00] LABS: ALT < 3 U/L (7-52); AST 6 U/L (13-39); Albumin 2.8 g/dL (3.2-5.2); Albumin/Globulin Ratio 0.7 (1-3); Alkaline Phosphatase 78 U/L (34-104); Anion Gap 7 mmol/L (2-11); BUN/Creatinine Ratio 23.5 (8-20); Blood Urea Nitrogen 46 mg/dL (6-24); CO2 Carbon Dioxide 26 mmol/L (22-32); Calcium 8.3 mg/dL (8.6-10.3); Chloride 105 mmol/L (101-111); EGFR African American 41.5 (>60); EGFR Non-African American 34.3 (>60); Globulin 4.3 g/dL (2-4); Glucose 118 mg/dL (70-100); Phosphorus 3.8 mg/dL (2.5-5.0); Potassium 4.6 mmol/L (3.5-5.0); Sodium 138 mmol/L (135-145); Total Protein 7.1 g/dL (6.4-8.9)
[2020-10-23] MEDS: Heparin 5000 UNITS/ML 1 mL VIAL SUBCUT SCH ×3 (00:26→17:14)
[2020-10-23] MEDS: Saline FLUSH-CENTRAL 10 ML SYRINGE CENT\\PICC SCH ×2 (09:10→21:13)
[2020-10-23] MEDS: Bismuth Subsalicylate 30 ML/527 MG ML PO PRN (09:22)
[2020-10-24] MEDS: Heparin 5000 UNITS/ML 1 mL VIAL SUBCUT SCH ×3 (01:20→16:39)
[2020-10-24] MEDS: Saline FLUSH-CENTRAL 10 ML SYRINGE CENT\\PICC SCH (09:14)
[2020-10-25] MEDS: Heparin 5000 UNITS/ML 1 mL VIAL SUBCUT SCH ×3 (02:07→16:45)
[2020-10-25] MEDS: Saline FLUSH-CENTRAL 10 ML SYRINGE CENT\\PICC SCH ×3 (02:07→21:18)
[2020-10-26] MEDS: Heparin 5000 UNITS/ML 1 mL VIAL SUBCUT SCH ×3 (00:35→17:54)
[2020-10-26 05:37] LABS: ABS Eosinophils 0.2 10^3/ul (0-0.6); ABS Lymphocytes 1.7 10^3/ul (1.0-4.8); ABS Monocytes 0.4 10^3/ul (0-0.8); ABS Neutrophils 3.2 10^3/ul (1.5-7.7); Eosinophil % 3.1 %; Hematocrit 23 % (42-52); Hemoglobin 7.4 g/dL (14.0-18.0); Lymphocyte % 30.9 %; Mean Corpuscular HGB Conc 32 g/dL (31-36); Mean Corpuscular Hemoglobin 26 pg (27-31); Mean Corpuscular Volume 79 fL (80-94); Mean Platelet Volume 7.1 fL (7.4-10.4); Platelet Count 244 10^3/uL (150-450); Red Blood Count 2.89 10^6 /uL (4.18-5.48); Red Cell Distribution Width 17 % (10-15); White Blood Count 5.5 10^3/uL (3.5-10.8)
[2020-10-26 05:55] LABS: BUN/Creatinine Ratio 17.4 (8-20); Calcium 8.5 mg/dL (8.6-10.3); EGFR African American 49.9 (>60); EGFR Non-African American 41.2 (>60); Potassium 4.3 mmol/L (3.5-5.0)
[2020-10-26] MEDS: Saline FLUSH-CENTRAL 10 ML SYRINGE CENT\\PICC SCH ×2 (09:52→21:09)
[2020-10-27] MEDS: Heparin 5000 UNITS/ML 1 mL VIAL SUBCUT SCH ×3 (01:00→17:23)
[2020-10-27] MEDS: Saline FLUSH-CENTRAL 10 ML SYRINGE CENT\\PICC SCH ×2 (11:34→20:08)
[2020-10-28] MEDS: Heparin 5000 UNITS/ML 1 mL VIAL SUBCUT SCH ×3 (00:02→17:41)
[2020-10-28] MEDS: Saline FLUSH-CENTRAL 10 ML SYRINGE CENT\\PICC SCH ×2 (09:44→22:19)
[2020-10-29] MEDS: Heparin 5000 UNITS/ML 1 mL VIAL SUBCUT SCH ×3 (01:10→17:28)
[2020-10-29] MEDS: Saline FLUSH-CENTRAL 10 ML SYRINGE CENT\\PICC SCH ×2 (11:39→22:06)
[2020-10-30] MEDS: Heparin 5000 UNITS/ML 1 mL VIAL SUBCUT SCH ×3 (01:20→17:39)
[2020-10-30] MEDS: Saline FLUSH-CENTRAL 10 ML SYRINGE CENT\\PICC SCH ×2 (08:39→21:40)
[2020-10-31] MEDS: Heparin 5000 UNITS/ML 1 mL VIAL SUBCUT SCH ×3 (00:46→18:30)
[2020-10-31] MEDS: Saline FLUSH-CENTRAL 10 ML SYRINGE CENT\\PICC SCH ×2 (12:46→20:00)
[2020-11-01] MEDS: Heparin 5000 UNITS/ML 1 mL VIAL SUBCUT SCH ×3 (01:07→17:33)
[2020-11-01] MEDS: Bismuth Subsalicylate 30 ML/527 MG ML PO PRN (04:57)
[2020-11-01] MEDS: Saline FLUSH-CENTRAL 10 ML SYRINGE CENT\\PICC SCH ×2 (09:09→20:31)
[2020-11-02] MEDS: Heparin 5000 UNITS/ML 1 mL VIAL SUBCUT SCH ×3 (01:30→17:27)
[2020-11-02] MEDS: Bismuth Subsalicylate 30 ML/527 MG ML PO PRN (08:51)
[2020-11-02] MEDS: Saline FLUSH-CENTRAL 10 ML SYRINGE CENT\\PICC SCH ×2 (09:03→21:17)
[2020-11-03] MEDS: Heparin 5000 UNITS/ML 1 mL VIAL SUBCUT SCH ×3 (01:00→17:59)
[2020-11-03] MEDS: Saline FLUSH-CENTRAL 10 ML SYRINGE CENT\\PICC SCH ×2 (09:30→20:41)
[2020-11-04] MEDS: Heparin 5000 UNITS/ML 1 mL VIAL SUBCUT SCH ×3 (00:39→17:55)
[2020-11-04 07:36] LABS: Hematocrit 24 % (42-52); Hemoglobin 7.4 g/dL (14.0-18.0); Mean Platelet Volume 7.7 fL (7.4-10.4); Platelet Count 246 10^3/uL (150-450)
[2020-11-04] MEDS: Saline FLUSH-CENTRAL 10 ML SYRINGE CENT\\PICC SCH ×2 (08:51→22:05)
[2020-11-05] MEDS: Heparin 5000 UNITS/ML 1 mL VIAL SUBCUT SCH ×3 (00:55→17:55)
[2020-11-05] MEDS: Saline FLUSH-CENTRAL 10 ML SYRINGE CENT\\PICC SCH ×2 (17:25→21:42)
[2020-11-06] MEDS: Heparin 5000 UNITS/ML 1 mL VIAL SUBCUT SCH ×3 (01:03→17:20)
[2020-11-06] MEDS: Saline FLUSH-CENTRAL 10 ML SYRINGE CENT\\PICC SCH ×2 (10:22→20:42)
[2020-11-07] MEDS: Heparin 5000 UNITS/ML 1 mL VIAL SUBCUT SCH ×3 (00:40→17:58)
[2020-11-07] MEDS: Saline FLUSH-CENTRAL 10 ML SYRINGE CENT\\PICC SCH ×2 (09:03→20:16)
[2020-11-07 15:09] LABS: Hematocrit 24 % (42-52); Hemoglobin 7.6 g/dL (14.0-18.0); Mean Corpuscular HGB Conc 32 g/dL (31-36); Mean Corpuscular Hemoglobin 25 pg (27-31); Mean Corpuscular Volume 79 fL (80-94); Mean Platelet Volume 7.2 fL (7.4-10.4); Platelet Count 260 10^3/uL (150-450); Red Blood Count 3.05 10^6 /uL (4.18-5.48); Red Cell Distribution Width 17 % (10-15); White Blood Count 7.5 10^3/uL (3.5-10.8)
[2020-11-07 15:25] LABS: BUN/Creatinine Ratio 15.5 (8-20); Calcium 8.2 mg/dL (8.6-10.3); EGFR African American 49.6 (>60); Potassium 4.4 mmol/L (3.5-5.0)
[2020-11-08] MEDS: Heparin 5000 UNITS/ML 1 mL VIAL SUBCUT SCH ×3 (01:14→16:54)
[2020-11-08] MEDS: Saline FLUSH-CENTRAL 10 ML SYRINGE CENT\\PICC SCH ×2 (09:50→20:25)
[2020-11-09] MEDS: Heparin 5000 UNITS/ML 1 mL VIAL SUBCUT SCH ×3 (00:38→16:16)
[2020-11-09] MEDS: Nystatin TOP POWDER 15 GM BTL TOPICAL SCH ×4 (05:12→20:46)
[2020-11-09] MEDS: Saline FLUSH-CENTRAL 10 ML SYRINGE CENT\\PICC SCH ×2 (09:54→20:46)
[2020-11-10] MEDS: Heparin 5000 UNITS/ML 1 mL VIAL SUBCUT SCH ×3 (02:09→17:42)
[2020-11-10] MEDS: Saline FLUSH-CENTRAL 10 ML SYRINGE CENT\\PICC SCH ×2 (08:48→20:34)
[2020-11-10] MEDS: Nystatin TOP POWDER 15 GM BTL TOPICAL SCH ×3 (08:50→20:34)
[2020-11-11] MEDS: Heparin 5000 UNITS/ML 1 mL VIAL SUBCUT SCH (00:49)
[2020-11-11 10:10] VITALS: BP 153/75
== END 2020-11-11 09:50 | disposition swing bed (61) | DRG 4 ==
LOC: ED 16:16 → ICU 17:51 → MED 09-05 14:40 → ICU 09-07 13:44
PROVIDERS: ADMIT Internal Medicine; ATTEND Internal Medicine